=== PATIENT | female | born 1965 | race Caucasian/White ===

== ENCOUNTER → 2017-07-05 08:48 | Outpatient (CLI) | payer BC, SELFPAY ==
[2017-07-05 09:46] LABS: Hemoglobin A1c 8.5 % (4.2-6.3)
[2017-07-05 09:51] LABS: T4 Free Direct 1.05 ng/dL (0.76-1.46)
[2017-07-05 09:55] LABS: ALB/GLOB Ratio 1.1 RATIO (0.9-2.4); AST(SGOT) 18 U/L (15-37); Alanine Aminotransfer ALT/SGPT 28 U/L (13-56); Albumin, Serum 3.4 g/dL (3.2-5.0); Alkaline Phosphatase 67 U/L (45-117); Anion Gap 7 (5-15); BUN 9 mg/dL (7-18); BUN/Creat Ratio 15.9 RATIO (10-20); Calcium,Total 7.9 mg/dL (8.5-10.1); Chloride 105 mmol/L (98-107); Creatinine, Serum 0.56 mg/dL (0.55-1.02); EST Glomerular Filtration Rate 121 mL/min (>60); Est Glom Filt Rate - Afr Amer 146 mL/min (>60); Globulin 3.1 g/dL (2.2-4.2); Glucose 104 mg/dL (74-106); Potassium 3.9 mmol/L (3.5-5.1); Protein, Total 6.5 g/dL (6.4-8.2); Sodium Level 139 mmol/L (136-145); Thyroid Stim Hormone (TSH) 2.69 uIU/mL (0.358-3.74)
[2017-07-07 13:01] LABS: Vitamin D 1,25-Dihydroxy 51.5 pg/mL (19.9-79.3)
== END ==
PROVIDERS: Family Provider Internal Medicine; PCP Internal Medicine; Visit Provider Nurse Practitioner
DX: E10.9 Type 1 diabetes mellitus without complications (principal); E03.9 Hypothyroidism, unspecified; E21.3 Hyperparathyroidism, unspecified
CPT/HCPCS: 36415; 80053; 82652; 83036; 84439; 84443

== ENCOUNTER 2017-12-28 09:14 | Outpatient (RCR) | payer BC, SELFPAY | END 2018-01-07 23:59 | LOC: NS 09:14 | PROVIDERS: Family Provider Internal Medicine; PCP Internal Medicine; Visit Provider Nurse Practitioner | DX: E66.9 Obesity, unspecified (principal); Z68.31 Body mass index [BMI] 31.0-31.9, adult; E10.9 Type 1 diabetes mellitus without complications; Z71.3 Dietary counseling and surveillance ==

== ENCOUNTER 2018-01-24 07:40 | Day surgery (SDC) | payer BC, SELFPAY ==
[2018-01-24 07:58] VITALS: BP 120/61; PULSE 72; RESP 18; TEMP 37.4; O2SAT 100; BMI 32.8
[2018-01-24 08:16] LABS: Bedside Glucose 112 mg/dL (70-110)
--- NOTE | 2018-01-24 08:45 | COLBX_PTH ---
PATIENT: BEAN LEES LOC: EN U#:[id number] AGE/SX: 52/F ROOM: RE01/24/[address]: Dr. Hanane Werner MD : 1965 BED: DIS: 01/24/2018 SPEC #: [id number] RECD: 01/24/18 10:00 STATUS: SUGAR MIKAELA #: [id number] MYKEL: 01/24/18 08:[address]: Hanane Werner DEPT: SURGICAL PATHOLOGY RECD BY: Laron Bajwa ENTERED: 01/24/18 10:11 SP TYPE: COLON BX OTHR DR: Dr. Arjun Steele MD Tissues: Rectum, NOS Procedures: Surgery Specimen Level IV HEADER OPERATION: Colonoscopy PRE-OP DIAGNOSIS: Screening TISSUE SUBMITTED: Rectal polyp MICROSCOPIC DIAGNOSIS Rectal polyp, biopsy: Fragments of inflammatory polyp. SJ:meagan 01/25/18 MICROSCOPIC DESCRIPTION Slides are reviewed. GROSS DESCRIPTION Received in fixative is one container labeled with the patient's name and designated rectal polyp. The specimen consists of a piece of rachel-pink polyp measuring 0.5 x 0.4 x 0.3 cm. Also present in the container are multiple fragments of rachel soft tissue mixed with fecal material measuring in aggregate 0.5 x 0.3 x 0.1 cm. The specimen is totally submitted in one cassette. / SJ:rg 01/24/18 TC:5 [facility]: [id number]
--- NOTE | 2018-01-24 08:59 | H&P.OPEN ---
Past Medical/Surgical History - Planned Operation Planned Operative Procedure/s: cscope open access Date of Operative Procedure: 01/24/18 Permit Signed: No S.O.S: No Is This Patient Having a Total Joint: No - Previous Hospitalizations/Surgeries HX Hospitalizations: No HX of Surgeries: . TUBAL LIGATION. MULTIPLE LT FOOT SURGERIES. BILAT EYE SURGERY. T&A. RIGHT ANKLE FX Any Problems With Anesthesia: Yes - nausea and vomitting You/Your Family Experience Fever (Hyperthermia) With Anes: No Cholinesterase deficiency: No - Cardiovascular Hx Chest Pain within Last 2 months: No Hx of Irregular Heartbeat and/or Afib: No Hx Heart Attack: No Hx Congestive Heart Failure: No Hx Rheumatic Fever: No Hx Hypertension: Yes - CONTROLLED WITH MED Hx Internal Defibrillator: No Hx Pacemaker: No Hx Cardiac Catheterization: No Hx Cardiac Surgery/Stents/Etc.: No Hx Stress Test: No HX Edema: No Hx Pain in Legs when Walking/Leg Cramps: No - Respiratory Chronic Cough: No HX of Shortness of Breath: No Hoarseness: No Hx Chronic Obstructive Pulmonary Disease (COPD): No Hx Asthma: No Hx Emphysema: No Hx Sleep Apnea: No CPAP: No BIPAP: No Hx Oxygen Use at Home: No Hx Respiratory Tract Infection/Cold (presently): No Do You Snore Loudly (louder than talking or can be heard): Yes Do You Often Feel Tired/ Fatigued/ Sleepy Dring Daytime?: No Has Anyone Observed You Stop Breathing During Sleep?: No Result (for STOP score): Positive Hx Smoking: No Smoking Status: Never smoker - Gastrointestinal Hx Gastroesophageal Reflux: Yes Controlled With Meds: Yes Hx Gastrointestinal Disorders: No Hx Gastrointestinal Bleed: No Hx Ulcer: No Hx Hiatal Hernia: No Difficulty Chewing/Swallowing: No Recent Onset of Swallowing Problems: No Special diet followed at home: Yes - DIABETIC Hx Unplanned Weight Loss of 20#: No - Neurological Hx Seizures: No HX Syncope/Blackout Spells/Unconsciousness: No Hx CVA/Stroke: No Hx Transient Ischemic Attacks (TIA): No Hx Multiple Sclerosis: No Hx Parkinson's Disease: No Hx Head/Neck Injury: No Hx Headaches: No Hx Back Injury/Pain: No Recent Onset of Speech Difficulty: No Restless Legs: No Does patient have nerve stimulator: No Patient instructed to have device shut off: No Rep notified?: No - Blood Disorder Hx Leukemia: No Bleeding Tendencies: No Hx Deep Vein Thrombosis: No Hx High Cholesterol: Yes - ON MED Blood Transmitted Disease: No Hx Hepatitis: No Hx Cirrhosis: No Hx Anemia: No Hx Blood Disorders: No - Reproduction Is Patient Lactating: No Hx Hysterectomy: No Hx Tubal Ligation: Yes Are You Post Menopause: No - Genitourinary Hx Renal Disease: No Hx Dialysis: No - Musculoskeletal Hx Arthritis: No Hx Rheumatoid Arthritis: No Hx Gout: No Recent Onset of an Orthopedic Problem: No - Endocrine Hx Diabetes: Yes Insulin: Yes - PUMP Thyroid Disease: Yes - ON MED Hx Steroid Therapy: No - Psycho/Social Hx Substance Use: No Hx Alcohol Use: No Hx Anxiety: No Hx Depression: No - . Mental Illness: No Hx Dementia: No - Miscellaneous Hx Cancer: No Recent Exposure to Contagious Disease: No Active MRSA: No Hx of C-Diff: No Any Loose Teeth: No Allergies codeine Adverse Reaction (Verified 01/23/18 12:53) Vomiting Maternal Family History: Family History (Last Reviewed 12/27/17 @ 14:26 by Krista Maxwell) Mother Diabetes Father Diabetes Grandfather Diabetes Grandmother Diabetes No pertinent history - Discharge Is Pt Admitted From a Senior Care, or a Residential: No Who Could Help: FAMILY After D/C, Where Do you Plan to Go: Return Home - Physical Exam General: Alert, Oriented x3, Cooperative, No apparent distress HEENT: Atraumatic Lungs: Normal air movement Cardiovascular: Regular rate, Regular Rhythm Abdomen: Soft, Non Tender, Non-Distended, - - insulin pump in LLQ Neurological: Cranial nerves II-XII grossly intact Psych/Mental Status: Normal Affect Vital Signs Temp Pulse Resp BP Pulse Ox 99.3 F H 72 18 120/61 100 01/24/18 07:58 01/24/18 07:58 01/24/18 07:58 01/24/18 07:58 01/24/18 07:58 Oxygen Delivery Method Room Air Weight: 191 lb 2.252 oz Body Mass Index (BMI) 32.8 Finger Stick Blood Glucose 338 POC Glucose 01/24/18 07:54 POC Glucose 112 H Assessment/Plan All Active Problems (Last Reviewed 12/27/17 @ 14:26 by Krista Maxwell) Diabetic foot ulcer (Acute) Furunculosis of axilla (Acute) Controlled insulin dependent type 1 diabetes mellitus (Acute) Diabetic infection of left foot (Acute) 52-year-old female for screening colonoscopy, denies any family history of colon cancer, has bowel movements Q2 days, denies any blood, no previous colonoscopy. Surgery Risks - Colonoscopy I discussed with the patient the risks of the procedure: Yes Risks Include but are not Limited To: Risks include but are not limited to: Bleeding, perforation requiring further surgery, inability to complete colonoscopy requiring barium enema. Pt had no further questions.
[2018-01-24 09:48] VITALS: BP 120/61; BP 98/60; PULSE 69; RESP 16; TEMP 36; O2SAT 100
[2018-01-24 09:50] VITALS: BP 120/61; BP 120/65; PULSE 79; RESP 16; O2SAT 100
--- NOTE | 2018-01-24 09:50 | OP.ENDO_ITS ---
Patient Name: Fay Mckinney Procedure Date: 01/24/2018 8:52 AM Date of : 1965 Age: 52 Procedure: Colonoscopy Indications: Screening for colorectal malignant neoplasm Providers: Hanane Werner MD Medicines: Monitored Anesthesia Care Patient Profile: Last Colonoscopy: none. The patient's first colonoscopy is today. Complications: No immediate complications. Procedure: Pre-Anesthesia Assessment: - Prior to the procedure, a History and Physical was performed, and patient medications and allergies were reviewed. The patient's tolerance of previous anesthesia was also reviewed. The risks and benefits of the procedure and the sedation options and risks were discussed with the patient. All questions were answered, and informed consent was obtained. Prior Anticoagulants: The patient has taken no previous anticoagulant or antiplatelet agents. ASA Grade Assessment: II - A patient with mild systemic disease. After reviewing the risks and benefits, the patient was deemed in satisfactory condition to undergo the procedure. After I obtained informed consent, the scope was passed under direct vision. Throughout the procedure, the patient's blood pressure, pulse, and oxygen saturations were monitored continuously. The Colonoscope was introduced through the anus and advanced to the cecum, identified by the appendiceal orifice, ileocecal valve and palpation. The colonoscopy was performed without difficulty. The patient tolerated the procedure well. The quality of the bowel preparation was good. Scope In: 9:03:49 AM Scope Withdrawal Time 0 hours 27 minutes 10 seconds Scope Out: 9:42:56 AM Total Procedure Duration Time 0 hours 39 minutes 7 seconds Findings: A 4 to 6 mm polyp was found in the rectum. The polyp was pedunculated. The polyp was removed with a hot snare. Resection and retrieval were complete. The digital rectal exam findings include rectal polyp/mass, grade I internal hemorroids. Internal hemorrhoids were found. The hemorrhoids were Grade I (internal hemorrhoids that do not prolapse). Impression: - One 4 to 6 mm polyp in the rectum, removed with a hot snare. Resected and retrieved. - Rectal polyp, grade I internal hemorroids found on digital rectal exam. - Internal hemorrhoids. Recommendation: - Repeat colonoscopy in 3 - 5 years for surveillance based on pathology results. - Discharge patient to home. - Continue present medications. Procedure Code(s): --- Professional --- 70810, Colonoscopy, flexible; with removal of tumor(s), polyp(s), or other lesion(s) by snare technique Diagnosis Code(s): --- Professional --- K62.1, Rectal polyp Z12.11, Encounter for screening for malignant neoplasm of colon K64.0, First degree hemorrhoids CPT copyright 2017 [employer]. All rights reserved. The codes documented in this report are preliminary and upon wave solder offbearer review may be revised to meet current compliance requirements. MD Hanane Gomez MD 01/24/2018 9:50:26 AM This report has been signed electronically. Number of Addenda: 0 Note Initiated On: 01/24/2018 8:52 AM
[2018-01-24 09:56] VITALS: BP 113/59; BP 120/61; PULSE 80; RESP 16; O2SAT 100
[2018-01-24 09:59] VITALS: BP 114/51; BP 120/61; PULSE 82; RESP 16; O2SAT 100
[2018-01-24 10:05] VITALS: BP 118/56; BP 120/61; PULSE 83; RESP 16; TEMP 36.1; O2SAT 100
== END 2018-01-24 10:26 | disposition home or self-care (01) ==
LOC: EN 07:40 → AC 07:42
PROVIDERS: Family Provider Internal Medicine; PCP Internal Medicine; Referring Provider Surgery; Visit Provider Surgery
PROC: 0DJD8ZZ Inspection of Lower Intestinal Tract, Via Natural or Artificial Opening Endoscopic (ICD-10-PCS; CPT 45378; principal; 2018-01-24 08:40)
DX: Z12.11 Encounter for screening for malignant neoplasm of colon (principal); K62.1 Rectal polyp; K64.0 First degree hemorrhoids; I10 Essential (primary) hypertension; K21.9 Gastro-esophageal reflux disease without esophagitis; E10.9 Type 1 diabetes mellitus without complications; E78.00 Pure hypercholesterolemia, unspecified; E06.9 Thyroiditis, unspecified; E10.621 Type 1 diabetes mellitus with foot ulcer; L97.509 Non-pressure chronic ulcer of other part of unspecified foot with unspecified severity; Z96.41 Presence of insulin pump (external) (internal); Z79.899 Other long term (current) drug therapy
CPT/HCPCS: 45385; 82962; 88305; J7120

== ENCOUNTER → 2018-01-26 08:15 | Outpatient (CLI) | payer BC, SELFPAY ==
[2018-01-26 09:50] LABS: Hemoglobin A1c 7.5 % (4.2-6.3)
[2018-01-26 10:03] LABS: Microalbumin,Random Urine 5.7 mg/L (NO RANGE EST.); Microalbumin:Creatinine Ratio 16.6 mg/g CRE (<30 mg/g CRE)
[2018-01-26 10:07] LABS: AST(SGOT) 12 U/L (15-37); Alanine Aminotransfer ALT/SGPT 24 U/L (13-56); Albumin, Serum 3.4 g/dL (3.2-5.0); Alkaline Phosphatase 66 U/L (45-117); Anion Gap 5 (5-15); BUN 15 mg/dL (7-18); BUN/Creat Ratio 24.4 RATIO (10-20); Calcium,Total 8.3 mg/dL (8.5-10.1); Chloride 104 mmol/L (98-107); Cholesterol 121 mg/dL (200); Creatinine, Serum 0.61 mg/dL (0.55-1.02); EST Glomerular Filtration Rate 109 mL/min (>60); Est Glom Filt Rate - Afr Amer 132 mL/min (>60); Globulin 3.4 g/dL (2.2-4.2); Glucose 135 mg/dL (74-106); High Density Lipoprotein 53 mg/dL; Potassium 4.1 mmol/L (3.5-5.1); Protein, Total 6.8 g/dL (6.4-8.2); Sodium Level 138 mmol/L (136-145); T4 Free Direct 1.31 ng/dL (0.76-1.46); Triglycerides 71 mg/dL; Very Low Density Lipoprotein 14 mg/dL (5-40)
== END ==
PROVIDERS: Family Provider Internal Medicine; PCP Internal Medicine; Referring Provider Nurse Practitioner; Visit Provider Nurse Practitioner
DX: E03.9 Hypothyroidism, unspecified (principal); E10.9 Type 1 diabetes mellitus without complications
CPT/HCPCS: 36415; 80053; 80061; 82043; 82570; 83036; 84439; 84443

== ENCOUNTER 2018-03-31 19:27 | Emergency (ER) | payer BC, SELFPAY ==
[2018-03-28 14:33] VITALS: BMI 33.0
[2018-03-31 19:29] VITALS: BP 118/66; PULSE 104; RESP 17; TEMP 37.4; O2SAT 97; BMI 32.5
[2018-03-31] MEDS: Morphine 4 MG/ML Syringe IV (20:08)
[2018-03-31] MEDS: 0.9% Normal Saline 1,000 ML 150 ML IV (20:08)
[2018-03-31] MEDS: Ondansetron 4 MG/2 ML Vial IV (20:08)
--- NOTE | 2018-03-31 20:25 | RAD_ITS ---
STUDY: X-RAY - LEFT FOOT CLINICAL: Female, 52 years old. Left foot infection. TECHNIQUE: 3 view(s) of the foot. COMPARISON: April 29, 2015 FINDINGS: There is generalized osteopenia. Normal talus, calcaneus, and tarsal bones. There are postfusion changes of the midfoot are unaltered. The patient is at the distal aspects of the first through fifth toes amputated in the mid-metatarsal region. There is plate and screw fixation unchanged from the prior comparison study. There is soft tissue swelling distal to the resection sites. No bone resorption is present. RAD/Foot min 3 Views IMPRESSION: Osteopenia with post-surgical changes and fixation of the mid foot unaltered since the prior study. No bone resorption to suggest osteomyelitis. Electronically Signed: Sarbjit Basilio MD at 20:42 EST , Service support ,
[2018-03-31 20:38] LABS: Absolute Lymphocyte Count 0.75 X10^3/ul (0.83-4.51); Absolute Neutrophil Count 9.2 X10^3/uL (2.0-7.7); Basophil# 0.02 X10^3/uL; Basophil% 0.2 % (0-1); Eosinophil# 0.01 X10^3/uL; Eosinophils% 0.1 % (0-5); Hematocrit 31.4 % (37-47); Hemoglobin 10.5 g/dl (12.0-15.0); Lymphocyte # 0.75 X10^3/ul (4.0); Lymphocyte % 7.2 % (19-41); Mean Corp Hgb Conc 33.4 g/gl (32-36); Mean Corpuscular Hgb 30.6 pg (27.0-32.0); Mean Corpuscular Volume 91.5 fL (81-99); Mean Platelet Vol. 10.3 fl (6.2-12.0); Monocyte# 0.48 X10^3/uL; Monocyte% 4.6 % (0-10); Neutrophil # 9.16 X10^3/uL (2.7-7.7); Neutrophil % 87.8 % (47-70); POSITIVE COUNT NO; POSITIVE DIFFERENTIAL NO; POSITIVE MORPHOLOGY NO; Platelet Count 121 K/mm3 (150-450); RBC Distribution Width CV 12.7 % (11.6-14.6); RBC Distribution Width SD 42.7 fl (35.1-43.9); Red Blood Count 3.43 M/mm3 (4.2-5.4); White Blood Count 10.4 K/mm3 (4.4-11.0)
[2018-03-31 20:39] VITALS: BP 124/65; PULSE 99; RESP 20; O2SAT 97
--- NOTE | 2018-03-31 20:40 | NURSING ---
unable to obtain lactic acid; lab called to draw. Md Linn notified.
[2018-03-31 20:50] LABS: AST(SGOT) 15 U/L (15-37); Alanine Aminotransfer ALT/SGPT 24 U/L (13-56); Alkaline Phosphatase 72 U/L (45-117); Anion Gap 9 (5-15); BUN 15 mg/dL (7-18); BUN/Creat Ratio 20.3 RATIO (10-20); Bilirubin, Direct 0.14 mg/dL (0.00-0.30); Calcium,Total 8.3 mg/dL (8.5-10.1); Chloride 108 mmol/L (98-107); Creatinine, Serum 0.74 mg/dL (0.55-1.02); EST Glomerular Filtration Rate 88 mL/min (>60); Est Glom Filt Rate - Afr Amer 107 mL/min (>60); Estimated Creatinine Clearance 78.54 ml/min; Globulin 3.4 g/dL (2.2-4.2); Glucose 202 mg/dL (74-106); Potassium 3.4 mmol/L (3.5-5.1); Protein, Total 6.4 g/dL (6.4-8.2); Sodium Level 140 mmol/L (136-145)
--- NOTE | 2018-03-31 22:27 | ED.DCSUM_ITS ---
- ER Visit Summary Date of Service: 03/31/18 Chief Complaint: Abdominal pain History of Present Illness: The patient is a 52 F who presents with upper abdominal pain and left foot pain. Patient states she started having upper abdominal pain and nausea yesterday that has continued to worsen. She had similar symptoms in the past when her foot gets infected. She is currently being treated for right foot infection by Dr. Marshall. She is on Augmentin. Left foot has been more painful and has had a bleeding wound over the distal aspect. She has had prior toe amputations on her left foot. Physical Examination: Blood pressure is 118/66, temperature 99.4, heart rate 104, respiratory rate 17, pulse ox 97% on room air. Patient sitting upright in bed. She is nontoxic appearing. Heart is regular rate and rhythm without murmur. Lungs sounds are clear pedal and abdomen is soft and nontender to palpation. Hypoactive bowel sounds are noted. Lower extremity examination reveals warmth and erythema to the left forefoot. There is a small open wound of the distal aspect of the foot with minimal drainage. Clean wound edges are noted. Test Results: CBC was normal white count with 88% neutrophils noted. Hemoglobin is 10.5 and platelet count is 121,000. Chemistry studies significant for glucose of 202. Lactate is normal. Blood cultures and wound cultures were sent. Left foot x-rays reveal osteopenia with postsurgical changes and fixation of the midfoot. There is no evidence of osteomyelitis. Emergency Department Course and Treatment: Patient was given morphine, Zofran, and IV fluids. Patient is given a dose of IV clindamycin. She will be discharged home with clindamycin for better MRSA coverage. If she has extension of the erythema, fever, or any other concerns she is to return. I advised her if her blood cultures returned with indication of infection she will be called and asked to return as well. Treatment Plan: [] Disposition: Discharge Impression: Cellulitis left foot This note was generated with [employer] dictation software. It may contain incorrect words, spelling, and punctuation that were not noted in review of the chart prior to signing ED Disposition - Plan for ED Patient: Disposition: Home or Assisted Living Chief Complaint: Abd Pain Instructions: ED Infec Skin Cellulitis Prescriptions: Clindamycin [Cleocin] 300 mg PO 4X/DAY #80 capsule Referrals: Arjun Steele MD [Primary Care Provider] - Unique Barnes [STAFF PHYSICIAN] - As soon as possible
[2018-03-31 22:45] VITALS: BP 107/65; PULSE 104; RESP 17; O2SAT 96
== END 2018-03-31 22:45 | disposition home or self-care (01) ==
PROVIDERS: Emergency Provider Emergency Medicine; Family Provider Internal Medicine; PCP Internal Medicine
DX: L03.116 Cellulitis of left lower limb (principal); R10.10 Upper abdominal pain, unspecified; R11.0 Nausea; E10.9 Type 1 diabetes mellitus without complications; I10 Essential (primary) hypertension; Z89.422 Acquired absence of other left toe(s); Z79.4 Long term (current) use of insulin; Z79.899 Other long term (current) drug therapy
CPT/HCPCS: 36415; 73630; 80048; 80076; 83605; 85025; 87040; 87070; 87075; 87205; 96361; 96365; 96374; 96375; 99284; J7030; A4216; J2405

== ENCOUNTER → 2018-12-17 16:06 | Outpatient (CLI) | payer BC, SELFPAY ==
[2018-12-17 15:31] VITALS: BMI 32.9
--- NOTE | 2018-12-17 16:08 | RAD_ITS ---
STUDY: X-RAY - LUMBAR SPINE REASON FOR EXAM: Female, 53 years old. Low back pain TECHNIQUE: 5 view(s) of the lumbar spine were obtained. COMPARISON: None FINDINGS: Normal lumbar lordosis. There is no substantial scoliosis. There is a normal alignment of the vertebrae. There is mild multilevel endplate spondylosis of the lumbar vertebrae. There is mild multi-level degenerative disc disease with multi-level disc space narrowing. There is no demonstrated fracture. The soft tissue structures are unremarkable. RAD/L/S Spine Min 4 Views IMPRESSION: No acute abnormality. Mild degenerative changes. Electronically Signed: Francis Harrison MD at 16:20 EDT , Service support ,
== END ==
PROVIDERS: Family Provider Internal Medicine; PCP Internal Medicine; Referring Provider Internal Medicine; Visit Provider Internal Medicine
DX: M54.5 Low back pain (principal)
CPT/HCPCS: 72110

== ENCOUNTER → 2019-05-14 | Outpatient (CLI) | payer BC, SELFPAY ==
[2019-05-14 15:26] VITALS: BMI 32.9
[2019-05-15 11:03] LABS: Bacteria 0 SEEN /hpf (None Seen); Mucous, Urine 0 SEEN /hpf (<or=2+); Red Blood Cells-Urine 0 SEEN /hpf (0-5); Squamous Epithelial Cells - UA 0 SEEN /hpf (5-10)
[2019-05-15 12:41] LABS: Color, Urine Yellow (Yellow); Glucose, Dipstick 1000 mg/dl (Normal); Ketone-Dipstick Negative (Negative); Leukocyte Esterase-Dipstick 100 /ul (Negative); Nitrite-Dipstick Positive (Negative); Occult Blood-Urine Negative /ul (Negative); Protein-Dipstick Negative (Negative); Urine Bilirubin Dipstick Negative (Negative); Urine Clarity Sl. Cloudy (Clear); Urine Urobilinogen Normal (Normal)
[2019-05-15 12:48] LABS: White Blood Cells 25-50 SEEN /hpf (0-5)
== END | disposition home or self-care (01) ==
LOC: LABSPEC 05-15 11:01
PROVIDERS: PCP Internal Medicine; Referring Provider Internal Medicine; Visit Provider Internal Medicine
DX: N39.0 Urinary tract infection, site not specified (principal)
CPT/HCPCS: 81001; 87086; 87088; 87186

== ENCOUNTER → 2019-10-30 15:05 | Outpatient (CLI) | payer BC, SELFPAY ==
[2019-10-30 14:30] VITALS: BMI 33.6
[2019-10-30 16:56] LABS: Absolute Lymphocyte Count 2.16 X10^3/uL (0.83-4.51); Absolute Neutrophil Count 4.6 X10^3/uL (2.0-7.7); Basophil# 0.06 X10^3/uL; Basophil% 0.8 % (0-1); Eosinophil# 0.09 X10^3/uL; Eosinophils% 1.2 % (0-5); Hematocrit 40.1 % (37-47); Hemoglobin 13.2 g/dL (12.0-15.0); Lymphocyte # 2.16 X10^3/ul (4.0); Lymphocyte % 29.3 % (19-41); Mean Corp Hgb Conc 32.9 g/dL (32-36); Mean Corpuscular Volume 94.1 fL (81-99); Mean Platelet Vol. 11.7 fl (6.2-12.0); Monocyte# 0.42 X10^3/uL; Monocyte% 5.7 % (0-10); NRBC Flagged by Analyzer 0 % (0-5); Neutrophil # 4.61 X10^3/uL (2.7-7.7); Neutrophil % 62.6 % (47-70); Platelet Count 168 K/mm3 (150-450); RBC Distribution Width CV 12.6 % (11.6-14.6); RBC Distribution Width SD 43.5 fl (35.1-43.9); Red Blood Count 4.26 M/mm3 (4.2-5.4); White Blood Count 7.4 K/mm3 (4.4-11.0)
[2019-10-30 17:28] LABS: ALB/GLOB Ratio 1.1 RATIO (0.9-2.4); AST(SGOT) 17 U/L (15-37); Alanine Aminotransfer ALT/SGPT 23 U/L (13-56); Albumin, Serum 3.9 g/dL (3.2-5.0); Alkaline Phosphatase 89 U/L (45-117); Anion Gap 8 (5-15); BUN 21 mg/dL (7-18); BUN/Creat Ratio 23.8 RATIO (10-20); Calcium,Total 8.6 mg/dL (8.5-10.1); Chloride 105 mmol/L (98-107); Cholesterol 166 mg/dL (200); Creatinine, Serum 0.88 mg/dL (0.55-1.02); EST Glomerular Filtration Rate 72 mL/min (>60); Est Glom Filt Rate - Afr Amer 87 mL/min (>60); Globulin 3.5 g/dL (2.2-4.2); Glucose 232 mg/dL (74-106); High Density Lipoprotein 64 mg/dL; Microalbumin,Random Urine 12.9 mg/L (NO RANGE EST.); Microalbumin:Creatinine Ratio 12.5 mg/g CRE (<30 mg/g CRE); Potassium 4.8 mmol/L (3.5-5.1); Protein, Total 7.4 g/dL (6.4-8.2); Sodium Level 135 mmol/L (136-145); Thyroid Stim Hormone (TSH) 5.86 uIU/mL (0.358-3.74); Triglycerides 120 mg/dL; Very Low Density Lipoprotein 24 mg/dL (5-40)
== END ==
PROVIDERS: PCP Internal Medicine; Referring Provider Internal Medicine; Visit Provider Internal Medicine
DX: E03.9 Hypothyroidism, unspecified (principal); E78.5 Hyperlipidemia, unspecified; E10.65 Type 1 diabetes mellitus with hyperglycemia
CPT/HCPCS: 36415; 80053; 80061; 82043; 82570; 84443; 85025

== ENCOUNTER → 2020-05-25 09:21 | Outpatient (CLI) | payer BC, SELFPAY ==
[2020-05-25 08:51] VITALS: BMI 34.3
[2020-05-25 09:23] LABS: Mucous, Urine 0 SEEN /hpf (<or=2+); White Blood Cells 0 SEEN /hpf (0-5)
[2020-05-25 12:14] LABS: Color, Urine Yellow (Yellow); Glucose, Dipstick 1000 mg/dl (Normal); Ketone-Dipstick Negative (Negative); Leukocyte Esterase-Dipstick Negative /ul (Negative); Nitrite-Dipstick Negative (Negative); Occult Blood-Urine Negative /ul (Negative); Protein-Dipstick Negative (Negative); Specific Gravity, Urine 1.015 (1.002-1.030); Urine Bilirubin Dipstick Negative (Negative); Urine Clarity Sl. Cloudy (Clear); Urine Urobilinogen Normal (Normal)
[2020-05-25 12:20] LABS: Bacteria 4+ /hpf (None Seen); Red Blood Cells-Urine 0 SEEN /hpf (0-5); Squamous Epithelial Cells - UA 0-5 SEEN /hpf (5-10)
[2020-05-25 12:29] LABS: ALB/GLOB Ratio 0.9 RATIO (0.9-2.4); AST(SGOT) 28 U/L (15-37); Alanine Aminotransfer ALT/SGPT 29 U/L (13-56); Albumin, Serum 3.6 g/dL (3.2-5.0); Alkaline Phosphatase 104 U/L (45-117); Anion Gap 10 (5-15); BUN 15 mg/dL (7-18); BUN/Creat Ratio 20.1 RATIO (10-20); Calcium,Total 8.7 mg/dL (8.5-10.1); Chloride 104 mmol/L (98-107); Creatinine, Serum 0.74 mg/dL (0.55-1.02); EST Glomerular Filtration Rate 87 mL/min (>60); Est Glom Filt Rate - Afr Amer 105 mL/min (>60); Globulin 3.9 g/dL (2.2-4.2); Glucose 287 mg/dL (74-106); Potassium 4.6 mmol/L (3.5-5.1); Protein, Total 7.5 g/dL (6.4-8.2); Sodium Level 134 mmol/L (136-145); Thyroid Stim Hormone (TSH) 4.15 uIU/mL (0.358-3.74)
[2020-05-25 12:37] LABS: Microalbumin,Random Urine < 5.0 mg/L (NO RANGE EST.)
== END ==
LOC: BIMLAB 09:22
PROVIDERS: PCP Internal Medicine; Referring Provider Internal Medicine; Visit Provider Internal Medicine
DX: I10 Essential (primary) hypertension (principal); E03.9 Hypothyroidism, unspecified; E10.65 Type 1 diabetes mellitus with hyperglycemia; E10.8 Type 1 diabetes mellitus with unspecified complications; R82.90 Unspecified abnormal findings in urine
CPT/HCPCS: 36415; 80053; 81001; 82043; 82570; 84443; 87086; 87088

== ENCOUNTER → 2020-06-25 | Outpatient (CLI) | payer BC, SELFPAY | END | disposition home or self-care (01) | PROVIDERS: Visit Provider Otolaryngology | DX: K04.7 Periapical abscess without sinus (principal) | CPT/HCPCS: 87070; 87077; 87186; 87205 ==

== ENCOUNTER 2020-07-16 20:00 | Emergency (ER) | payer BC, SELFPAY ==
[2020-07-16 20:00] VITALS: BP 159/75; PULSE 88; RESP 18; TEMP 37.1; O2SAT 97; BMI 32.9
--- NOTE | 2020-07-16 20:56 | ED.VISSUMM ---
- ER Visit Summary Date of Service: 07/16/20 Chief Complaint: Nausea and vomiting History of Present Illness: The patient is a 54 F who presents with nausea, vomiting, and abdominal pain that began today. Patient states she has been unable to keep anything down today. Patient denies any hematemesis or coffee-ground emesis. Patient states her pain is over the epigastric area. Patient describes the pain as dull. Patient states the pain has been constant all day today. Patient states nothing makes it better or worse. Patient denies any diarrhea, melena, or hematochezia. Patient denies any dysuria, hematuria, or urinary frequency. Patient does admit to a mild headache. Patient denies any fevers or chills. Patient has a history of diabetes. Physical Examination: Vital signs are stable. Patient is afebrile. Patient is in no acute distress. Oral mucosa is pink and moist. Neck is supple. Trachea is midline. There is no JVD. Heart was regular rate and rhythm. Lungs are clear and equal bilaterally. Abdomen is soft. Bowel sounds are normal. There is some mild epigastric tenderness. There is no rebound or guarding noted. Cranial nerves II through XII are intact. There are no focal motor or sensory deficits. Extremities are intact. There is no calf tenderness or edema. Test Results: CBC and comprehensive metabolic profile were obtained were within normal limits. Lipase was normal. Serum ketones were negative. Urinalysis was obtained and does not show any evidence of urinary tract infection. Emergency Department Course and Treatment: Patient was given IV fluids and Zofran. Patient was feeling better on reevaluation. Patient was given a prescription for Zofran. Patient was instructed to follow-up with her primary care physician in 5 to 7 days. Patient understood and was agreeable with the plan. All questions were answered. Disposition: Discharge home Impression: 1. Nausea and vomiting This note was generated with [employer] dictation software. It may contain incorrect words, spelling, and punctuation that were not noted in review of the chart prior to signing ED Disposition - Plan for ED Patient: Disposition: Home or Assisted Living Diagnosis: Nausea and vomiting Instructions: ED Vomiting (Adult) Prescriptions: Ondansetron [Zofran Odt] 4 mg PO Q8H PRN PRN #10 tablet PRN Reason: Nausea Transmission Status: Pending to [facility]/pharmacy #[id number] Referrals: Arjun Steele MD [Primary Care Provider] - 3-5 Days
[2020-07-16] MEDS: Ondansetron 4 MG/2 ML Vial IV ×2 (20:57→23:06)
[2020-07-16] MEDS: Morphine 4 MG/ML Syringe IV (20:58)
[2020-07-16] MEDS: 0.9% Normal Saline 1,000 ML 1000 ML IV (20:58)
[2020-07-16 21:20] LABS: Absolute Lymphocyte Count 1.09 X10^3/uL (0.83-4.51); Absolute Neutrophil Count 5.7 X10^3/uL (2.0-7.7); Basophil# 0.02 X10^3/uL; Basophil% 0.3 % (0-1); Eosinophil# 0.01 X10^3/uL; Eosinophils% 0.1 % (0-5); Hematocrit 39.7 % (37-47); Hemoglobin 13.7 g/dL (12.0-15.0); Lymphocyte # 1.09 X10^3/ul (4.0); Lymphocyte % 15.1 % (19-41); Mean Corp Hgb Conc 34.5 g/dL (32-36); Mean Corpuscular Hgb 30.5 pg (27.0-32.0); Mean Corpuscular Volume 88.4 fL (81-99); Mean Platelet Vol. 10.7 fl (6.2-12.0); Monocyte# 0.33 X10^3/uL; Monocyte% 4.6 % (0-10); NRBC Flagged by Analyzer 0 % (0-5); Neutrophil # 5.69 X10^3/uL (2.7-7.7); Neutrophil % 79.1 % (47-70); Platelet Count 187 K/mm3 (150-450); RBC Distribution Width CV 12.8 % (11.6-14.6); RBC Distribution Width SD 41.2 fl (35.1-43.9); Red Blood Count 4.49 M/mm3 (4.2-5.4); White Blood Count 7.2 K/mm3 (4.4-11.0)
[2020-07-16 21:36] LABS: ALB/GLOB Ratio 0.9 RATIO (0.9-2.4); AST(SGOT) 13 U/L (15-37); Alanine Aminotransfer ALT/SGPT 24 U/L (13-56); Albumin, Serum 3.6 g/dL (3.2-5.0); Alkaline Phosphatase 108 U/L (45-117); Anion Gap 5 (5-15); BUN 13 mg/dL (7-18); BUN/Creat Ratio 18.4 RATIO (10-20); Calcium,Total 9.1 mg/dL (8.5-10.1); Chloride 102 mmol/L (98-107); Creatinine, Serum 0.71 mg/dL (0.55-1.02); EST Glomerular Filtration Rate 92 mL/min (>60); Est Glom Filt Rate - Afr Amer 112 mL/min (>60); Estimated Creatinine Clearance 80.04 ml/min; Globulin 3.8 g/dL (2.2-4.2); Glucose 170 mg/dL (74-106); Lipase 24 U/L (73-393); Potassium 3.8 mmol/L (3.5-5.1); Protein, Total 7.4 g/dL (6.4-8.2); Sodium Level 135 mmol/L (136-145)
[2020-07-16 22:00] LABS: Lactic Acid 1.7 mmol/L (0.4-1.9)
[2020-07-16 22:11] LABS: Bacteria 0 SEEN /hpf (None Seen); Mucous, Urine 0 SEEN /hpf (<or=2+); Red Blood Cells-Urine 0 SEEN /hpf (0-5); Squamous Epithelial Cells - UA 0 SEEN /hpf (5-10); White Blood Cells 0 SEEN /hpf (0-5)
[2020-07-16 22:19] LABS: Color, Urine Yellow (Yellow); Glucose, Dipstick 1000 mg/dl (Normal); Leukocyte Esterase-Dipstick 25 /ul (Negative); Nitrite-Dipstick Negative (Negative); Occult Blood-Urine Negative /ul (Negative); Protein-Dipstick 15 mg/dl (Negative); Specific Gravity, Urine 1.015 (1.002-1.030); Urine Bilirubin Dipstick Negative (Negative); Urine Clarity Clear (Clear); Urine Urobilinogen Normal (Normal)
[2020-07-16 22:22] LABS: Ketone-Dipstick 150 mg/dl (Negative)
[2020-07-16 22:58] VITALS: PULSE 80; RESP 20; O2SAT 99
== END 2020-07-16 23:09 | disposition home or self-care (01) ==
PROVIDERS: Emergency Provider Emergency Medicine; PCP Internal Medicine
DX: R11.2 Nausea with vomiting, unspecified (principal); R10.13 Epigastric pain; R51.9 Headache, unspecified; E11.9 Type 2 diabetes mellitus without complications; Z79.4 Long term (current) use of insulin; Z79.899 Other long term (current) drug therapy
CPT/HCPCS: 80053; 81001; 82009; 83605; 83690; 85025; 96361; 96374; 96375; 96376; 99285; J2405

== ENCOUNTER → 2020-09-23 15:04 | Outpatient (CLI) | payer BC, SELFPAY ==
[2020-09-23 14:36] VITALS: BMI 32.9
[2020-09-23 17:12] LABS: Thyroid Stim Hormone (TSH) 3.21 uIU/mL (0.358-3.74)
== END ==
LOC: BIMLAB 15:04
PROVIDERS: PCP Internal Medicine; Referring Provider Physician Assistant; Visit Provider Physician Assistant
DX: E03.9 Hypothyroidism, unspecified (principal)
CPT/HCPCS: 36415; 84439; 84443

== ENCOUNTER → 2021-08-10 | Outpatient (CLI) | payer BC, SELFPAY | END | disposition home or self-care (01) | PROVIDERS: PCP Internal Medicine; Visit Provider Podiatrist | DX: L97.522 Non-pressure chronic ulcer of other part of left foot with fat layer exposed (principal) | CPT/HCPCS: 87070; 87077; 87186; 87205 ==

== ENCOUNTER → 2021-08-17 | Outpatient (CLI) | payer BC, SELFPAY ==
[2021-08-17 12:27] LABS: Vitamin D,25 Hydroxy 14.5 ng/mL
[2021-08-17 13:11] LABS: ALB/GLOB Ratio 0.9 RATIO (0.9-2.4); AST(SGOT) 17 U/L (15-37); Alanine Aminotransfer ALT/SGPT 27 U/L (13-56); Albumin, Serum 3.7 g/dL (3.2-5.0); Alkaline Phosphatase 98 U/L (45-117); Anion Gap 9 (5-15); BUN 16 mg/dL (7-18); BUN/Creat Ratio 21.7 RATIO (10-20); Calcium,Total 9.2 mg/dL (8.5-10.1); Chloride 104 mmol/L (98-107); Cholesterol 152 mg/dL (200); Creatinine, Serum 0.74 mg/dL (0.55-1.02); EST Glomerular Filtration Rate 87 mL/min (>60); Est Glom Filt Rate - Afr Amer 105 mL/min (>60); Globulin 4.1 g/dL (2.2-4.2); Glucose 161 mg/dL (74-106); High Density Lipoprotein 60 mg/dL; Potassium 4.1 mmol/L (3.5-5.1); Protein, Total 7.8 g/dL (6.4-8.2); Sodium Level 138 mmol/L (136-145); T4 Free Direct 1.78 ng/dL (0.76-1.46); Thyroid Stim Hormone (TSH) 0.04 uIU/mL (0.358-3.74); Triglycerides 78 mg/dL; Very Low Density Lipoprotein 16 mg/dL (5-40)
[2021-08-17 14:13] LABS: Microalbumin:Creatinine Ratio 20.6 mg/g CRE (<30 mg/g CRE)
== END | disposition home or self-care (01) ==
LOC: BIMLAB 08:27
PROVIDERS: PCP Internal Medicine; Referring Provider Internal Medicine Endocrinology, Diabetes & Metabolism; Visit Provider Internal Medicine Endocrinology, Diabetes & Metabolism
DX: E10.3553 Type 1 diabetes mellitus with stable proliferative diabetic retinopathy, bilateral (principal); E10.42 Type 1 diabetes mellitus with diabetic polyneuropathy; E03.8 Other specified hypothyroidism; E06.3 Autoimmune thyroiditis; I10 Essential (primary) hypertension; E55.9 Vitamin D deficiency, unspecified
CPT/HCPCS: 36415; 80053; 80061; 82043; 82306; 82570; 84439; 84443

== ENCOUNTER → 2021-09-13 | Outpatient (CLI) | payer BC, SELFPAY ==
--- NOTE | 2021-09-13 12:33 | BI_ITS ---
MAMMOGRAPHY - BILATERAL SCREENING REASON FOR EXAM: Female, 55 years old. Routine annual screening examination. PERTINENT HISTORY: Non-contributory. TECHNIQUE: Digital bilateral breast bailey (3D mammographic acquisition) in the CC and MLO projections. 2-D mediolateral oblique (MLO) and craniocaudad (CC) views of both breasts were obtained. CAD: Full Field Digital Mammography with Computer Added Detection was performed. COMPARISON: Comparison is made with prior outside examination dated 09/21/2017. FINDINGS: Breast Composition: There are scattered areas of fibroglandular density. There are no dominant masses or suspicious calcifications. No other significant abnormalities are identified. There has been no significant change since the prior study. BI/SCRN MAMM (CAD)W/BAILEY BILAT IMPRESSION: Stable bilateral screening mammogram. Yearly follow-up mammogram recommended. (A) ASSESSMENT CATEGORY: BIRADS Category 1: Negative. A letter regarding these results will be sent to the patient by the facility within 30 days. Approximately 10% of breast cancers are not detected by mammography. A normal mammogram should not delay biopsy of a clinically suspicious abnormality. [id number] Electronically Signed: John Arana MD at 8:57 EDT ,
== END | disposition home or self-care (01) ==
LOC: OPBI 12:32
PROVIDERS: PCP Internal Medicine; Referring Provider Internal Medicine; Visit Provider Internal Medicine
DX: Z12.31 Encounter for screening mammogram for malignant neoplasm of breast (principal)
CPT/HCPCS: 77063; 77067

== ENCOUNTER → 2021-09-30 | Outpatient (CLI) | payer BC, SELFPAY | END | disposition home or self-care (01) | LOC: LABSPEC 10:07 | PROVIDERS: PCP Internal Medicine; Visit Provider Podiatrist | DX: L97.522 Non-pressure chronic ulcer of other part of left foot with fat layer exposed (principal) | CPT/HCPCS: 87070; 87077; 87186; 87205 ==

== ENCOUNTER 2021-11-23 20:36 | Emergency (ER) | payer BC, MEDICAID, SELFPAY ==
[2021-11-23 20:37] VITALS: BP 128/91; PULSE 115; RESP 22; TEMP 37.1; O2SAT 100; BMI 34.3
--- NOTE | 2021-11-23 21:18 | EX.ED.DYSGE1 ---
HPI History of Present Illness Chief Complaint: Allergic Reaction Informant: patient Onset/Context/Timing Onset: Yesterday Current Severity: Moderate Maximum Severity: Moderate Narrative Narrative: Patient presents secondary to hives and itching. She states yesterday she noticed a rash on her left arm. By this morning it spread across her chest and back. It is now also spread to the proximal thighs. She took Benadryl approximately 8 hours ago without significant improvement. She has been on Levaquin for the past 8 days. She states this is the only new or different medication. [facility] Medical History Acute hematogenous osteomyelitis Anxiety and depression bilat eye surgery Breast cancer screening Charcot's joint of left foot Diabetes type 1, controlled Diabetic foot infection Dysmenorrhea great toe fusion History of endometrial biopsy Hyperlipidemia Hyperparathyroidism Hypothyroidism nonhealing plantar l foot wound novasure Obesity open wound of toes Peripheral neuropathy Peripheral vascular disease of lower extremity PVD (peripheral vascular disease) Home Medications cholecalciferol (vitamin D3) 125 mcg (5,000 unit) capsule 5,000 unit PO QDAY 03/15/17 [History Last Taken Unknown] insulin pump syringe 1.8 mL 01/23/18 [History Last Taken Unknown] pregabalin 50 mg capsule (Lyrica) 50 mg PO BID #60 caps 02/12/20 [Rx Last Taken Unknown] omeprazole 40 mg capsule,delayed release 40 mg PO DAILY #90 caps 09/08/20 [Rx Last Taken Unknown] blood-glucose meter,continuous (Dexcom G6 Non Licensed Nuclear Plant Operator misc) #1 ea 11/26/20 [Rx Last Taken Unknown] blood-glucose transmitter (Dexcom G6 Transmitter device) #1 ea 11/26/20 [Rx Last Taken Unknown] fluoxetine 20 mg capsule 20 mg PO BID depression, hot flashes 12/17/20 [History Last Taken Unknown] blood-glucose sensor (Dexcom G6 Sensor device) #9 ea 12/21/20 [Rx Last Taken Unknown] simvastatin 20 mg tablet See Rx Instructions .Route .COMPLEX #90 tabs 05/05/21 [Rx Last Taken Unknown] insulin lispro 100 unit/mL subcutaneous solution (Humalog U-100 Insulin) 100 unit subcut .continuous #90 mL 08/17/21 [Rx Last Taken Unknown] levothyroxine 112 mcg tablet 112 mcg PO DAILY #90 tabs 08/17/21 [Rx Last Taken Unknown] enalapril maleate 10 mg tablet 10 mg PO DAILY #90 tabs 08/31/21 [Rx Last Taken Unknown] diphenhydramine HCl 50 mg capsule 50 mg PO TID PRN rash #30 caps 11/23/21 [Rx Last Taken Unknown] famotidine 40 mg tablet (Pepcid) 40 mg PO DAILY #7 tabs 11/23/21 [Rx Last Taken Unknown] prednisone 20 mg tablet 40 mg PO DAILY #8 tabs 11/23/21 [Rx Last Taken Unknown] Allergy/AdvReac Type Severity Reaction Status Date / Time codeine AdvReac Vomiting Verified 11/23/21 20:39 Family History Mother Diabetes Father Diabetes Grandfather Diabetes Grandmother Diabetes Surgical History History of tonsillectomy Hx of adenoidectomy Hx of section Hx of tubal ligation S/P foot surgery, left S/P transmetatarsal amputation of foot Status post bilateral foot surgery Social History Smoking Status: Never smoker second hand exposure: No alcohol intake: current substance use type: does not use caffeine: Yes ROS ROS ED Constitutional Constitutional ED: Denies chills or fever(s) Eyes Eyes: Denies change in vision or discharge from eye(s) ENT ENT ED: Denies discharge from eye(s), rhinorrhea or sore throat Cardiovascular Cardiovascular: Denies chest pain or palpitations Respiratory/Chest Respiratory/Chest: Denies cough or dyspnea Gastrointestinal Gastrointestinal: Denies abdominal pain, diarrhea, nausea or vomiting Genitourinary Genitourinary ED: Denies difficulty urinating or dysuria Musculoskeletal Musculoskeletal: Denies back pain or extremity pain Integumentary Reports rash; Denies Abrasions Neurologic Neurologic: Denies headache(s) or weakness Psychiatric Psychiatric: Denies anxiety or depression Endocrine Endocrinology: Denies polydipsia or polyuria Allergic/Immunologic Allergic/Immunologic ED: Denies lip swelling or urticaria EXAM Physical Exam Const Vital Signs: 11/23/21 20:37 11/23/21 22:30 Temperature 98.8 F Temperature Source Temporal Pulse Rate 115 H 86 Respiratory Rate 22 H 15 Blood Pressure 128/91 H 119/49 L Blood Pressure Mean 103 72 Pulse Ox 100 99 Oxygen Delivery Method Room Air Room Air Positive well nourished and well developed General Appearance ED: well developed HEENT Reports normocephalic and head/scalp atraumatic HEENT Narrative: No tongue edema. Normal posterior pharynx. Speaks with a strong voice and is tolerating secretions well. Eyes PERRL and EOMs intact bilaterally Neck supple Chest Wall inspection of chest normal and palpation of chest normal Resp normal respiratory effort and clear to auscultation bilaterally Cardio regular rate and regular rhythm GI normal to inspection, nondistended, normoactive bowel sounds Palpation: soft Neuro oriented x3 and no sensory deficits noted Sensorium / Orientation: alert Motor Exam: strength 5/5 throughout Psych mental status grossly normal Skin Skin Narrative: Urticarial lesions noted over the trunk and upper arms along with proximal thighs. MDM MDM MDM Narrative Medical decision making narrative: Patient given Benadryl, Pepcid, Solu-Medrol. On repeat examination after 1 hour the edema associated with the urticaria is improving. The erythema is slowly improving. Patient will be given prescriptions for Benadryl, Pepcid, prednisone. She will call Dr. Marshall tomorrow to be given a different antibiotic. Return instructions are provided. Discharge Plan Triage Chief Complaint: Allergic Reaction ED Provider: Scarlett Linn Dx/Rx/DC Orders Clinical Impression: Urticaria Instructions: ED ADVERSE DRUG REACTION Allergic, ED Hives (Adult) Prescriptions: New prednisone 20 mg tablet 40 mg PO DAILY Qty: 8 0RF diphenhydramine HCl 50 mg capsule 50 mg PO TID PRN (Reason: rash) Qty: 30 0RF famotidine [Pepcid] 40 mg tablet 40 mg PO DAILY Qty: 7 0RF No Action cholecalciferol (vitamin D3) 5,000 unit capsule 5,000 unit PO QDAY fluoxetine 20 mg capsule 20 mg PO BID (DME) Dexcom G6 Sensor Device See Rx Instructions .ROUTE .MEDSUPPLY Qty: 9 3RF Rx Instructions: change every 10 days insulin lispro [Humalog U-100 Insulin] 100 unit/mL solution 100 unit SC .continuous Qty: 90 1RF Rx Instructions: viaInsulin Pump enalapril maleate 10 mg tablet 10 mg PO DAILY Qty: 90 3RF (DME) insulin pump syringe 1 EACH misc 1 ea MC CONT pregabalin [Lyrica] 50 mg capsule 50 mg PO BID Qty: 60 3RF omeprazole 40 mg capsule,delayed release(DR/EC) 40 mg PO DAILY Qty: 90 3RF (DME) Dexcom G6 Non Licensed Nuclear Plant Operator Misc See Rx Instructions .ROUTE .MEDSUPPLY Qty: 1 0RF Rx Instructions: As directed (DME) Dexcom G6 Transmitter Device See Rx Instructions .ROUTE .MEDSUPPLY Qty: 1 3RF Rx Instructions: As directed simvastatin 20 mg tablet See Rx Instructions .ROUTE .COMPLEX Qty: 90 3RF Dose Instruction: TAKE 1 TABLET BY MOUTH AT BEDTIME Rx Instructions: TAKE 1 TABLET BY MOUTH AT BEDTIME levothyroxine 112 mcg tablet 112 mcg PO DAILY Qty: 90 3RF Primary Care Provider: Arjun Steele Referrals: Unique Barnes DPM [Med Staff - Active Staff] - As soon as possible Arjun Steele MD [Primary Care Provider] - Disposition Disposition: Home, Self Care
[2021-11-23] MEDS: MethylPREDNISolone 125 MG/2 ML Vial IV (21:47)
[2021-11-23] MEDS: DiphenhydrAMINE 50 MG/ML Syringe 25 MG IV (21:47)
[2021-11-23] MEDS: Famotidine 200 MG/20 ML MDV 20 MG in 0.9% Normal Saline (Pres. free 8 ML 300 MG IV (21:48)
[2021-11-23 22:30] VITALS: BP 119/49; PULSE 86; RESP 15; O2SAT 99
[2021-11-23 23:27] VITALS: BP 125/59; PULSE 89; RESP 17; O2SAT 100
== END 2021-11-23 23:32 | disposition home or self-care (01) ==
PROVIDERS: Emergency Provider Emergency Medicine; PCP Internal Medicine; Visit Provider Emergency Medicine
DX: L50.0 Allergic urticaria (principal); E10.51 Type 1 diabetes mellitus with diabetic peripheral angiopathy without gangrene; E10.42 Type 1 diabetes mellitus with diabetic polyneuropathy; Z79.4 Long term (current) use of insulin; E78.5 Hyperlipidemia, unspecified; F41.9 Anxiety disorder, unspecified; F32.A Depression, unspecified; E03.9 Hypothyroidism, unspecified; Z79.899 Other long term (current) drug therapy
CPT/HCPCS: 96374; 96375; 99284; A4216; J3490

== ENCOUNTER → 2021-11-30 | Outpatient (CLI) | payer BC, MEDICAID, SELFPAY ==
--- NOTE | 2021-11-30 14:10 | RAD_ITS ---
STUDY: X-RAY CHEST REASON FOR EXAM: Female, 56 years old. CP, SOB TECHNIQUE: PA and lateral views of the chest. COMPARISON: Comparison is made with prior study 09/22/1999. FINDINGS: Bilateral breast prostheses. There are increased linear markings at the lung bases more prominent at the right lung base suggestive of early infiltrates and/or atelectasis. There is no demonstrated pleural abnormality. Normal size heart. Normal mediastinum and diana. Normal visualized pulmonary arteries. Normal visualized aortic arch and descending thoracic aorta. Normal visualized thoracic spine. Normal visualized ribs, clavicles, and shoulders. There is no demonstrated abnormality of the visualized soft tissue structures of the upper abdomen. RAD/Chest PA and Lateral IMPRESSION: Increased markings at both lung bases slightly worse on the right side suggestive of either atelectasis and/or early bibasilar infiltrates. Electronically Signed: John Arana MD at 15:05 EDT ,
--- NOTE | 2021-11-30 14:10 | EKG12_ITS ---
Test Reason : SOB Blood Pressure : / mmHG Vent. Rate : 085 BPM Atrial Rate : 085 BPM P-R Int : 128 ms QRS Dur : 076 ms QT Int : 382 ms P-R-T Axes : 019 001 002 degrees QTc Int : 454 ms Normal sinus rhythm Low voltage QRS (Limb Leads) Poor R wave progression Nonspecific T wave abnormality Confirmed by TE QUINTANA, RAQUEL ([id number]), purchase request editor STANLEY RODRÍGUEZ ([id number]) on 12/01/2021 11:32:58 AM Referred By: Rupali Walton Confirmed By:RAQUEL TIWARI MD
== END | disposition home or self-care (01) ==
PROVIDERS: PCP Internal Medicine; Referring Provider Physician Assistant; Visit Provider Physician Assistant
DX: R07.9 Chest pain, unspecified (principal); R06.02 Shortness of breath; R10.13 Epigastric pain
CPT/HCPCS: 71046; 93005

== ENCOUNTER → 2021-11-30 | Outpatient (CLI) | payer BC, MEDICAID, SELFPAY ==
[2021-11-30 14:26] LABS: Absolute Lymphocyte Count 2.57 X10^3/uL (0.83-4.51); Absolute Neutrophil Count 5.8 X10^3/uL (2.0-7.7); Basophil# 0.07 X10^3/uL; Basophil% 0.7 % (0-1); Eosinophil# 0.46 X10^3/uL; Eosinophils% 4.7 % (0-5); Hematocrit 37.3 % (37-47); Hemoglobin 12.5 g/dL (12.0-15.0); Lymphocyte # 2.57 X10^3/ul (0.83-4.51); Lymphocyte % 26.4 % (19-41); Mean Corp Hgb Conc 33.5 g/dL (32-36); Mean Corpuscular Hgb 30.6 pg (27.0-32.0); Mean Corpuscular Volume 91.4 fL (81-99); Mean Platelet Vol. 10.5 fl (6.2-12.0); Monocyte# 0.67 X10^3/uL; Monocyte% 6.9 % (0-10); NRBC Flagged by Analyzer 0 % (0-5); Neutrophil # 5.79 X10^3/uL (2.7-7.7); Neutrophil % 59.4 % (47-70); Platelet Count 250 K/mm3 (150-450); Red Blood Count 4.08 M/mm3 (4.2-5.4); White Blood Count 9.8 K/mm3 (4.4-11.0)
[2021-11-30 14:44] LABS: ALB/GLOB Ratio 0.7 RATIO (0.9-2.4); AST(SGOT) 12 U/L (15-37); Alanine Aminotransfer ALT/SGPT 21 U/L (13-56); Alkaline Phosphatase 98 U/L (45-117); Amylase 40 U/L (25-115); Anion Gap 6 (5-15); BUN 15 mg/dL (7-18); BUN/Creat Ratio 17.8 RATIO (10-20); Calcium,Total 8.2 mg/dL (8.5-10.1); Chloride 106 mmol/L (98-107); Creatinine, Serum 0.84 mg/dL (0.55-1.02); EST Glomerular Filtration Rate 75 mL/min (>60); Est Glom Filt Rate - Afr Amer 91 mL/min (>60); Globulin 4.1 g/dL (2.2-4.2); Glucose 182 mg/dL (74-106); Lipase 86 U/L (73-393); Potassium 4.6 mmol/L (3.5-5.1); Protein, Total 7.1 g/dL (6.4-8.2); Sodium Level 133 mmol/L (136-145); Troponin-I HS 4 pg/mL (3.0-54.0)
== END | disposition home or self-care (01) ==
LOC: BIMLAB 13:37
PROVIDERS: PCP Internal Medicine; Referring Provider Physician Assistant; Visit Provider Physician Assistant
DX: R06.02 Shortness of breath (principal); R07.9 Chest pain, unspecified; R10.13 Epigastric pain
CPT/HCPCS: 36415; 80053; 82150; 83690; 84484; 85025; 87635; U0003; U0005

== ENCOUNTER → 2022-02-09 | Outpatient (CLI) | payer BC, MEDICAID, SELFPAY ==
[2022-02-09 13:28] LABS: T4 Free Direct 1.25 ng/dL (0.76-1.46); Thyroid Stim Hormone (TSH) 6.92 uIU/mL (0.358-3.74)
== END | disposition home or self-care (01) ==
LOC: BIMLAB 09:47
PROVIDERS: PCP Internal Medicine; Referring Provider Nurse Practitioner Family; Visit Provider Nurse Practitioner Family
DX: E03.9 Hypothyroidism, unspecified (principal)
CPT/HCPCS: 36415; 84439; 84443

== ENCOUNTER → 2022-04-26 | Outpatient (CLI) | payer BC, MEDICAID, SELFPAY | END | disposition home or self-care (01) | PROVIDERS: PCP Internal Medicine; Visit Provider Podiatrist | DX: L97.522 Non-pressure chronic ulcer of other part of left foot with fat layer exposed (principal) | CPT/HCPCS: 87070; 87077; 87186; 87205 ==

== ENCOUNTER → 2022-08-18 | Outpatient (CLI) | payer MEDICAID, SELFPAY ==
[2022-08-18 17:06] LABS: Absolute Lymphocyte Count 2.12 X10^3/uL (0.83-4.51); Absolute Neutrophil Count 3.4 X10^3/uL (2.0-7.7); Basophil# 0.07 X10^3/uL; Basophil% 1.1 % (0-1); Eosinophil# 0.19 X10^3/uL; Hematocrit 39.1 % (37-47); Lymphocyte # 2.12 X10^3/ul (0.83-4.51); Lymphocyte % 33.5 % (19-41); Mean Corp Hgb Conc 33.2 g/dL (32-36); Mean Corpuscular Hgb 29.8 pg (27.0-32.0); Mean Corpuscular Volume 89.7 fL (81-99); Mean Platelet Vol. 10.6 fl (6.2-12.0); Monocyte# 0.48 X10^3/uL; Monocyte% 7.6 % (0-10); NRBC Flagged by Analyzer 0 % (0-5); Neutrophil # 3.44 X10^3/uL (2.7-7.7); Neutrophil % 54.5 % (47-70); Platelet Count 212 K/mm3 (150-450); RBC Distribution Width SD 42.9 fl (35.1-43.9); Red Blood Count 4.36 M/mm3 (4.2-5.4); White Blood Count 6.3 K/mm3 (4.4-11.0)
[2022-08-18 17:27] LABS: Microalbumin,Random Urine 36.7 mg/L (NO RANGE EST.); Microalbumin:Creatinine Ratio 15.3 mg/g CRE (<30 mg/g CRE)
[2022-08-18 17:49] LABS: ALB/GLOB Ratio 1.2 RATIO (0.9-2.4); AST(SGOT) 15 U/L (15-37); Alanine Aminotransfer ALT/SGPT 25 U/L (13-56); Albumin, Serum 3.9 g/dL (3.2-5.0); Alkaline Phosphatase 93 U/L (45-117); Anion Gap 8 (5-15); BUN 14 mg/dL (7-18); BUN/Creat Ratio 18.4 RATIO (10-20); Calcium,Total 8.7 mg/dL (8.5-10.1); Chloride 110 mmol/L (98-107); Cholesterol 172 mg/dL (200); Creatinine, Serum 0.76 mg/dL (0.55-1.02); EST Glomerular Filtration Rate 84 mL/min (>60); Est Glom Filt Rate - Afr Amer 101 mL/min (>60); Globulin 3.3 g/dL (2.2-4.2); Glucose 119 mg/dL (74-106); High Density Lipoprotein 52 mg/dL; Potassium 4.5 mmol/L (3.5-5.1); Protein, Total 7.2 g/dL (6.4-8.2); Sodium Level 140 mmol/L (136-145); Triglycerides 141 mg/dL; Very Low Density Lipoprotein 28 mg/dL (5-40)
[2022-08-18 18:17] LABS: T4 Free Direct 1.25 ng/dL (0.76-1.46); Thyroid Stim Hormone (TSH) 6.45 uIU/mL (0.358-3.74)
[2022-08-18 18:35] LABS: Vitamin D,25 Hydroxy 21.5 ng/mL
== END | disposition home or self-care (01) ==
LOC: BIMLAB 16:13
PROVIDERS: Internal Medicine Endocrinology, Diabetes & Metabolism; PCP Internal Medicine; Visit Provider Nurse Practitioner Family
DX: F41.9 Anxiety disorder, unspecified (principal); E10.65 Type 1 diabetes mellitus with hyperglycemia; E10.42 Type 1 diabetes mellitus with diabetic polyneuropathy; F32.A Depression, unspecified; E78.2 Mixed hyperlipidemia; E03.9 Hypothyroidism, unspecified; Z96.41 Presence of insulin pump (external) (internal); Z46.81 Encounter for fitting and adjustment of insulin pump; E66.09 Other obesity due to excess calories; Z68.32 Body mass index [BMI] 32.0-32.9, adult; E55.9 Vitamin D deficiency, unspecified
CPT/HCPCS: 36415; 80053; 80061; 82043; 82306; 82570; 84439; 84443; 85025

== ENCOUNTER 2022-09-28 18:22 | Inpatient (IN) | payer MEDICAID, SELFPAY ==
[2022-09-28] VITALS (8 sets, daily range): BP systolic 121–181; BP diastolic 57–81; PULSE 76–98; RESP 14–20; TEMP 35.5–36.6; O2SAT 94–100; BMI 34.2; BMI 41.1
--- NOTE | 2022-09-28 18:45 | EDS_ITS ---
HPI History of Present Illness Chief Complaint: Abd Pain Informant: patient Onset/Context/Timing Onset: Yesterday Context: Gradual Onset Current Severity: Severe Maximum Severity: Severe Narrative Narrative: Patient presents with epigastric abdominal pain. She states pain started yesterday gradually throughout the day and is continued to worsen. She developed nausea and vomiting today. No fever or chills. No diarrhea. She does have type 1 diabetes and states her blood sugars have been good. She denies history of gallbladder problems or pancreatitis. [facility] Medical History Acute hematogenous osteomyelitis Anxiety and depression bilat eye surgery Breast cancer screening Charcot's joint of left foot Diabetes type 1, controlled Diabetic foot infection Dysmenorrhea great toe fusion History of endometrial biopsy Hyperlipidemia Hyperparathyroidism Hypothyroidism Needs flu shot nonhealing plantar l foot wound novasure Obesity open wound of toes Peripheral neuropathy Peripheral vascular disease of lower extremity PVD (peripheral vascular disease) Skin picking habit Home Medications cholecalciferol (vitamin D3) 125 mcg (5,000 unit) capsule 5,000 unit PO QDAY 03/15/17 [History Last Taken Unknown] insulin pump syringe 1.8 mL 01/23/18 [History Last Taken Unknown] blood-glucose meter,continuous (Dexcom G6 Smoking Tobacco Cutter Operator) #1 ea 11/26/20 [Rx Last T ak Unknown] blood-glucose sensor (Dexcom G6 Sensor device) #9 ea 01/26/22 [Rx Last Taken Unknown] blood-glucose transmitter (Dexcom G6 Transmitter device) #1 ea 01/26/22 [Rx Last Taken Unknown] omeprazole 40 mg capsule,delayed release 40 mg PO DAILY #90 caps 02/09/22 [Rx Last Taken Unknown] simvastatin 20 mg tablet See Rx Instructions .Route .COMPLEX #90 tabs 05/02/22 [Rx Last Taken Unknown] insulin lispro 100 unit/mL subcutaneous solution (Humalog U-100 Insulin) 100 unit subcut .continuous #90 mL 06/29/22 [Rx Last Taken Unknown] enalapril maleate 5 mg tablet See Rx Instructions .Route .COMPLEX #90 tabs 07/20/22 [Rx Last Taken Unknown] levothyroxine 125 mcg tablet 125 mcg PO DAILY #90 tabs 07/20/22 [Rx Last Taken Unknown] fluoxetine 40 mg capsule 40 mg PO BID depression, hot flashes #180 caps 08/18/22 [Rx Last Taken Unknown] insulin pump cart,cont inf,BT (Omnipod Dash Pods (Gen 4) subcutaneous cartridge) #30 ea 09/13/22 [Rx Last Taken Unknown] Allergy/AdvReac Type Severity Reaction Status Date / Time codeine AdvReac Vomiting Verified 09/28/22 18:23 Family History Mother Diabetes Father Diabetes Grandfather Diabetes Grandmother Diabetes Surgical History History of tonsillectomy Hx of adenoidectomy Hx of section Hx of tubal ligation S/P foot surgery, left S/P transmetatarsal amputation of foot Status post bilateral foot surgery Social History Smoking Status: Never smoker second hand exposure: No alcohol intake: current substance use type: does not use caffeine: Yes ROS ROS ED Constitutional Constitutional ED: Denies chills or fever(s) Eyes Eyes: Denies change in vision or discharge from eye(s) ENT ENT ED: Denies discharge from eye(s), rhinorrhea or sore throat Cardiovascular Cardiovascular: Denies chest pain or palpitations Respiratory/Chest Respiratory/Chest: Denies cough or dyspnea Gastrointestinal Gastrointestinal: Reports abdominal pain, nausea and vomiting; Denies diarrhea Genitourinary Genitourinary ED: Denies dysuria Musculoskeletal Musculoskeletal: Denies back pain or extremity pain Integumentary Denies Abrasions or rash Neurologic Neurologic: Denies headache(s) or weakness Psychiatric Psychiatric: Denies anxiety or depression Allergic/Immunologic Allergic/Immunologic ED: Denies lip swelling or urticaria EXAM Physical Exam Const Vital Signs: 09/28/22 18:23 09/28/22 18:59 09/28/22 20:42 Temperature 96 F L Temperature Source Temporal Pulse Rate 86 76 Respiratory Rate 14 Blood Pressure 181/77 H 123/62 H Blood Pressure Mean 111 82 Pulse Ox 98 97 96 Oxygen Delivery Method Room Air Room Air Positive well nourished and well developed General Appearance ED: well developed HEENT Reports dry mucous membranes Mouth ED: Yes dry mucous membranes Mouth: dry mucous membranes Eyes EOMs intact bilaterally Neck no lymphadenopathy Chest Wall inspection of chest normal and palpation of chest normal Resp normal respiratory effort and clear to auscultation bilaterally Cardio regular rate and regular rhythm GI GI Narrative: Focal tenderness in the epigastrium. No guarding or rebound. Hypoactive but present bowel sounds are noted. Extremity normal to inspection Neuro oriented x3 Psych Mood & Affect: anxious MDM MDM MDM Narrative Medical decision making narrative: Patient placed on mold checker. EKG obtained to evaluate for cardiac arrhythmia/ischemia. Labwork obtained to evaluate for leukocytosis, anemia, and electrolyte derangement. Patient given morphine and Zofran along with IV fluids. Lab Data Attestation: I reviewed the patient's lab results. Labs: Laboratory Results - last 24 hr 09/28/22 09/28/22 09/28/22 18:40 18:40 19:04 WBC 8.2 RBC 4.14 L Hgb 12.2 Hct 36.5 L MCV 88.2 MCH 29.5 MCHC 33.4 RDW Std Deviation 41.1 RDW Coeff of Frank 12.8 Plt Count 218 MPV 10.3 Immature Gran % (Auto) 0.500 Neut % (Auto) 69.9 Lymph % (Auto) 20.8 Rankin % (Auto) 6.8 Eos % (Auto) 1.3 Baso % (Auto) 0.7 Absolute Neuts (auto) 5.7 Absolute Lymphs (auto) 1.70 Nucleated RBC % 0 Sodium 139 Potassium 3.8 Chloride 105 Carbon Dioxide 22.0 Anion Gap 12 BUN 16 Creatinine 0.90 Estim Creat Clear Calc 61.71 Est GFR (MDRD) Af Amer 83 Est GFR (MDRD) Non-Af 69 BUN/Creatinine Ratio 17.7 Glucose 175 H Calcium 9.0 Total Bilirubin 0.50 Direct Bilirubin 0.14 AST 12 L ALT 20 Alkaline Phosphatase 90 Troponin I High Sens 4 Total Protein 7.3 Albumin 3.6 Globulin 3.7 Lipase 14 POC Glucose 174 H Radiography Diagnostic Testing: Clinical Impression(s) from Imaging Studies Abdomen/Pelvis CT 09/28/22 19:53 IMPRESSION: (NOT LISTED IN ORDER OF SIGNIFICANCE) Acute appendicitis. There is no evidence to suggest abscess formation. Other findings as above. Non standard communication findings protocol was initiated. Electronically Signed: Sawyer Aguillon MD at 20:56 EDT , ADDENDUM: 09/28/222108 IMPRESSION: (NOT LISTED IN ORDER OF SIGNIFICANCE) Acute appendicitis. There is no evidence to suggest abscess formation. Other findings as above. Non standard communication findings protocol was initiated. N.B. : The above Results were Read Back by Sawyer Aguillon MD to Scarlett Linn MD, and understanding confirmed on 09/28/2022 21:03:01 (ET). Electronically Signed: Sawyer Aguillon MD at 20:56 EDT , EKG Initial EKG: Attestation: I personally reviewed and interpreted this EKG as follows: Interpretation: Sinus Rhythm (Sinus at 82 with no acute ischemia.) Differential Diagnosis Chest pain/SOB: ACS ACS: Positive for no evidence of ACS based on cardiac biomarkers and EKG without ischemia Abdominal Pain: Cholecystitis Reason(s) Cholecystitis less likely: NL Gall Bladder on imagng studies, Pancreatitis Reason(s) Pancreatitis less likely: NL lab values and Bowel obstruction Reason(s) bowel obstruction less likely: no evidence of bowel obstruction on imaging studies Treatment and Re-Evaluation :: CBC is unremarkable with normal white count and no left shift. Chemistry studies normal. Glucose is 175. LFTs and lipase normal. Troponin is normal at 4. EKG is sinus rhythm with no acute ischemia. On repeat evaluation patient is improved but still uncomfortable. In light of this CT scan with IV contrast obtained. CT scan abdomen and pelvis reveals evidence of acute appendicitis. Test results are discussed with the patient and she is given a dose of Zosyn. I spoke with Dr. Mccormack who will be in to see the patient with plan to go to the OR [facility]. Discharge Plan Triage Chief Complaint: Abd Pain ED Provider: Scarlett Linn Dx/Rx/DC Orders Clinical Impression: Acute appendicitis Prescriptions: No Action cholecalciferol (vitamin D3) 5,000 unit capsule 5,000 unit PO QDAY (DME) Dexcom G6 Sensor Device See Rx Instructions .ROUTE .MEDSUPPLY Qty: 9 3RF Rx Instructions: change every 10 days (DME) Dexcom G6 Transmitter Device See Rx Instructions .ROUTE .MEDSUPPLY Qty: 1 3RF Rx Instructions: As directed omeprazole 40 mg capsule,delayed release(DR/EC) 40 mg PO DAILY Qty: 90 3RF fluoxetine 40 mg capsule 40 mg PO BID Qty: 180 3RF (DME) insulin pump syringe 1 EACH misc 1 ea MC CONT (DME) Dexcom G6 Smoking Tobacco Cutter Operator Misc See Rx Instructions .ROUTE .MEDSUPPLY Qty: 1 0RF Rx Instructions: As directed simvastatin 20 mg tablet See Rx Instructions .ROUTE .COMPLEX Qty: 90 3RF Dose Instruction: TAKE 1 TABLET BY MOUTH AT BEDTIME Rx Instructions: TAKE 1 TABLET BY MOUTH AT BEDTIME insulin lispro [Humalog U-100 Insulin] 100 unit/mL solution 100 unit SC .continuous Qty: 90 1RF Rx Instructions: viaInsulin Pump levothyroxine 125 mcg tablet 125 mcg PO DAILY Qty: 90 1RF enalapril maleate 5 mg tablet See Rx Instructions .ROUTE .COMPLEX Qty: 90 1RF Dose Instruction: TAKE 1 TABLET BY MOUTH EVERY DAY Rx Instructions: TAKE 1 TABLET BY MOUTH EVERY DAY (DME) Omnipod Dash Pods (Gen 4) Cartridge See Rx Instructions .Route Qty: 30 1RF Rx Instructions: change every 3 days Primary Care Provider: Arjun Steele Referrals: Arjun Steele MD [Primary Care Provider] - Disposition Disposition: Acute Care Hospital [facility]
[2022-09-28] MEDS: 0.9% Normal Saline 1,000 ML 1000 ML IV (18:51)
[2022-09-28] MEDS: Morphine 4 MG/ML Syringe IV (18:51)
[2022-09-28] MEDS: Ondansetron 4 MG/2 ML Vial IV (18:51)
[2022-09-28 18:52] LABS: Absolute Neutrophil Count 5.7 X10^3/uL (2.0-7.7); Basophil# 0.06 X10^3/uL; Basophil% 0.7 % (0-1); Eosinophil# 0.11 X10^3/uL; Eosinophils% 1.3 % (0-5); Hematocrit 36.5 % (37-47); Hemoglobin 12.2 g/dL (12.0-15.0); Lymphocyte % 20.8 % (19-41); Mean Corp Hgb Conc 33.4 g/dL (32-36); Mean Corpuscular Hgb 29.5 pg (27.0-32.0); Mean Corpuscular Volume 88.2 fL (81-99); Mean Platelet Vol. 10.3 fl (6.2-12.0); Monocyte# 0.56 X10^3/uL; Monocyte% 6.8 % (0-10); NRBC Flagged by Analyzer 0 % (0-5); Neutrophil # 5.72 X10^3/uL (2.7-7.7); Neutrophil % 69.9 % (47-70); Platelet Count 218 K/mm3 (150-450); RBC Distribution Width CV 12.8 % (11.6-14.6); RBC Distribution Width SD 41.1 fl (35.1-43.9); Red Blood Count 4.14 M/mm3 (4.2-5.4); White Blood Count 8.2 K/mm3 (4.4-11.0)
[2022-09-28 19:11] LABS: AST(SGOT) 12 U/L (15-37); Alanine Aminotransfer ALT/SGPT 20 U/L (13-56); Albumin, Serum 3.6 g/dL (3.2-5.0); Alkaline Phosphatase 90 U/L (45-117); Anion Gap 12 (5-15); BUN 16 mg/dL (7-18); BUN/Creat Ratio 17.7 RATIO (10-20); Bilirubin, Direct 0.14 mg/dL (0.00-0.30); Chloride 105 mmol/L (98-107); EST Glomerular Filtration Rate 69 mL/min (>60); Est Glom Filt Rate - Afr Amer 83 mL/min (>60); Estimated Creatinine Clearance 61.71 ml/min; Globulin 3.7 g/dL (2.2-4.2); Glucose 175 mg/dL (74-106); Lipase 14 U/L (13-75); Potassium 3.8 mmol/L (3.5-5.1); Protein, Total 7.3 g/dL (6.4-8.2); Sodium Level 139 mmol/L (136-145); Troponin-I HS 4 pg/mL (3.0-54.0)
[2022-09-28 19:24] LABS: Bedside Glucose 174 mg/dL (74-106)
--- NOTE | 2022-09-28 19:53 | CT_ITS ---
We are attempting to reach an attending provider to discuss findings. An addendum with communication details will be sent when the communication is complete. STUDY: CT Abdomen And Pelvis W/ Contrast Injection 09/28/2022 8:52 PM REASON FOR EXAM: Female, 56 years old. pain started Monday and has gotten worse, emesis, nausea, epigastric pain epigastric pain Individualized dose optimization techniques were used for this CT. COMPARISON: None. TECHNIQUE: CT Abdomen And Pelvis W/ Contrast Injection IV 100mL [id number] FINDINGS: There are atherosclerotic calcifications of visualized coronary arteries. The visualized portions of the heart are within normal limits. Normal liver. Normal gallbladder and extrahepatic biliary system. Normal spleen. Normal pancreas. Normal bilateral adrenal glands. No acute findings of the right kidney. No acute findings of the left kidney. There is a small hiatal hernia. Normal small intestine. Stool throughout the colon. There is a tubular, thick-walled appendix (>9.2mm), consistent with acute appendicitis. Retrocecal appendix. There are calcifications of the abdominal aorta. This is consistent for atherosclerotic disease. There is NO abdominal aortic aneurysm. Vascular workup can be obtained based on clinical correlation. Normal inferior vena cava. Subcentimeter mesenteric lymph nodes. Normal urinary bladder. There is an umbilical hernia containing fat. There is bilateral neural foraminal stenosis at L4-5 and L5-S1. There are diffuse degenerative changes of the visualized lumbar spine. CT/Abdomen/Pelvis W IV Cont ONLY IMPRESSION: (NOT LISTED IN ORDER OF SIGNIFICANCE) Acute appendicitis. There is no evidence to suggest abscess formation. Other findings as above. Non standard communication findings protocol was initiated. Electronically Signed: Sawyer Aguillon MD at 20:56 EDT ,
[2022-09-28] MEDS: 0.9% Normal Saline 1,000 ML 150 ML IV (20:05)
--- NOTE | 2022-09-28 21:55 | ED.RN ---
Report given to OR nurse.
[2022-09-28] MEDS: Lactated Ringers 1,000 ML 15 ML IV (22:05)
--- NOTE | 2022-09-28 22:05 | HP.PCM.SX_ITS ---
HPI - General HPI Narrative BEAN LEES, is a 56 F who presents with epigastric pain and nausea and vomiting. Patient reports the pain started off-and-on on Monday but became worse yesterday. She reports that she is nauseous and she threw up on her way into the hospital today. She is currently nauseous and feel like she is going to throw up as well. She denies fevers or chills. Says the pain is all over her upper abdomen. [facility]LY [facility] Medical History Acute hematogenous osteomyelitis Anxiety and depression bilat eye surgery Breast cancer screening Charcot's joint of left foot Diabetes type 1, controlled Diabetic foot infection Dysmenorrhea great toe fusion History of endometrial biopsy Hyperlipidemia Hyperparathyroidism Hypothyroidism Needs flu shot nonhealing plantar l foot wound novasure Obesity open wound of toes Peripheral neuropathy Peripheral vascular disease of lower extremity PVD (peripheral vascular disease) Skin picking habit Home Medications cholecalciferol (vitamin D3) 125 mcg (5,000 unit) capsule 5,000 unit PO QDAY 03/15/17 [History Last Taken Unknown] insulin pump syringe 1.8 mL 01/23/18 [History Last Taken Unknown] blood-glucose meter,continuous (Dexcom G6 Customer Service Specialist) #1 ea 11/26/20 [Rx Last Taken Unknown] blood-glucose sensor (Dexcom G6 Sensor device) #9 ea 01/26/22 [Rx Last Taken Unknown] blood-glucose transmitter (Dexcom G6 Transmitter device) #1 ea 01/26/22 [Rx Last Taken Unknown] omeprazole 40 mg capsule,delayed release 40 mg PO DAILY #90 caps 02/09/22 [Rx Last Taken Unknown] simvastatin 20 mg tablet See Rx Instructions .Route .COMPLEX #90 tabs 05/02/22 [Rx Last Taken Unknown] insulin lispro 100 unit/mL subcutaneous solution (Humalog U-100 Insulin) 100 unit subcut .continuous #90 mL 06/29/22 [Rx Last Taken Unknown] enalapril maleate 5 mg tablet See Rx Instructions .Route .COMPLEX #90 tabs 07/20/22 [Rx Last Taken Unknown] levothyroxine 125 mcg tablet 125 mcg PO DAILY #90 tabs 07/20/22 [Rx Last Taken Unknown] fluoxetine 40 mg capsule 40 mg PO BID depression, hot flashes #180 caps 08/18/22 [Rx Last Taken Unknown] insulin pump cart,cont inf,BT (Omnipod Dash Pods (Gen 4) subcutaneous cartridge) #30 ea 09/13/22 [Rx Last Taken Unknown] Allergy/AdvReac Type Severity Reaction Status Date / Time codeine AdvReac Vomiting Verified 09/28/22 18:23 Family History Mother Diabetes Father Diabetes Grandfather Diabetes Grandmother Diabetes Surgical History History of tonsillectomy Hx of adenoidectomy Hx of section Hx of tubal ligation S/P foot surgery, left S/P transmetatarsal amputation of foot Status post bilateral foot surgery Social History Smoking Status: Never smoker second hand exposure: No alcohol intake: current substance use type: does not use caffeine: Yes ROS Constitutional Constitutional: Denies anorexia, chills, fatigue or fever(s) Eyes Eyes: Denies blurry vision ENT HEENT: Denies abnormal hearing Cardiovascular Cardiovascular: Denies chest pain Respiratory/Chest Respiratory/Chest: Denies cough or dyspnea Gastrointestinal Gastrointestinal: Reports abdominal pain, nausea and vomiting; Denies constipation Genitourinary Genitourinary: Denies change in urinary stream Musculoskeletal Musculoskeletal: Denies abnormal gait Integumentary Integumentary: Denies jaundice Neurologic Neurologic: Denies abnormal gait Psychiatric Psychiatric: Denies anxiety Hematologic/Lymphatic Hematologic/Lymphatic: Denies easy bleeding Vital Signs Vital Signs Vital Signs: 09/28/22 18:23 09/28/22 18:59 09/28/22 20:42 Temperature 96 F L Temperature Source Temporal Pulse Rate 86 76 Respiratory Rate 14 Blood Pressure 181/77 H 123/62 H Blood Pressure Mean 111 82 Pulse Ox 98 97 96 Oxygen Delivery Method Room Air Room Air 09/28/22 21:37 Temperature 98 F Temperature Source Oral Pulse Rate 81 Respiratory Rate 18 Blood Pressure 146/72 H Blood Pressure Mean 96 Pulse Ox 98 Oxygen Delivery Method Room Air Weight Weight: 199 lb 11.821 oz Body Mass Index (BMI) 34.2 Physical Exam Const oriented x3 and no apparent distress Resp normal respiratory effort Cardio regular rate and regular rhythm GI soft to palpation Inspection: Negative for abdominal distention Palpation: tender periumbilical Results Lab / Micro Data Result Diagrams: 09/28/22 18:40 09/28/22 18:40 Labs: Laboratory Results - last 24 hr 09/28/22 18:40: WBC 8.2, RBC 4.14 L, Hgb 12.2, Hct 36.5 L, MCV 88.2, MCH 29.5, MCHC 33.4, RDW Std Deviation 41.1, RDW Coeff of Frank 12.8, Plt Count 218, MPV 10.3, Immature Gran % (Auto) 0.500, Neut % (Auto) 69.9, Lymph % (Auto) 20.8, [place] % (Auto) 6.8, Eos % (Auto) 1.3, Baso % (Auto) 0.7, Absolute Neuts (auto) 5.7, Absolute Lymphs (auto) 1.70, Nucleated RBC % 0 09/28/22 18:40: Sodium 139, Potassium 3.8, Chloride 105, Carbon Dioxide 22.0, Anion Gap 12, BUN 16, Creatinine 0.90, Estim Creat Clear Calc 61.71, Est GFR (MDRD) Af Amer 83, Est GFR (MDRD) Non-Af 69, BUN/Creatinine Ratio 17.7, Glucose 175 H, Calcium 9.0, Total Bilirubin 0.50, Direct Bilirubin 0.14, AST 12 L, ALT 20, Alkaline Phosphatase 90, Troponin I High Sens 4, Total Protein 7.3, Albumin 3.6, Globulin 3.7, Lipase 14 09/28/22 19:04: POC Glucose 174 H Radiology Impression Abdomen/Pelvis CT 09/28/22 19:53 IMPRESSION: (NOT LISTED IN ORDER OF SIGNIFICANCE) Acute appendicitis. There is no evidence to suggest abscess formation. Other findings as above. Non standard communication findings protocol was initiated. Electronically Signed: Sawyer Aguillon MD at 20:56 EDT , ADDENDUM: 09/28/222108 IMPRESSION: (NOT LISTED IN ORDER OF SIGNIFICANCE) Acute appendicitis. There is no evidence to suggest abscess formation. Other findings as above. Non standard communication findings protocol was initiated. N.B. : The above Results were Read Back by Sawyer Aguillon MD to Scarlett Linn MD, and understanding confirmed on 09/28/2022 21:03:01 (ET). Electronically Signed: Sawyer Aguillon MD at 20:56 EDT , Assessment & Plan Assessment/Plan (1) Acute appendicitis: QUALIFIERS: Acute appendicitis type: unspecified acute appendicitis type Qualified Code(s): K35.80 - Unspecified acute appendicitis PLAN: Patient comes in with abdominal pain and nausea and vomiting. Her white count was normal and her left differential was at the upper limits of normal. CT scan revealed acute appendicitis with a retrocecal appendix. I discussed laparoscopic appendectomy with the patient in detail. I discussed the risks including but not limited to bleeding, infection, injury other organs such as the bowel, bladder, ureter. Patient understands the risks and is willing to proceed with laparoscopic appendectomy. Patient was given Zosyn in the emergency room. I will remove her insulin pump and give her sliding scale insulin until discharge. Rahat Mccormack MD Pager: [facility] [address] [place] [address], [address] [place] [address] Office:
[2022-09-28] MEDS: Bupivacaine 0.25% 30 ML Vial (22:33)
--- NOTE | 2022-09-28 23:08 | OP.PCM_ITS ---
Report of Operation Date of Procedure: 09/28/22 Pre-Operative Diagnosis: Acute appendicitis Post-Operative Diagnosis: Same Surgery/Procedure Performed:: Laparoscopic appendectomy Specimen's removed: Appendix Description of Procedure: The patient was brought into the operating room and general anesthesia was induced. The left arm was tucked and the abdomen was prepped and draped in usual sterile fashion. A small midline incision was made superior to the umbilicus and deepened to the level of the fascia. The fascia was elevated and incised. The peritoneum was also elevated and incised. A finger sweep was per formed and a balloon trocar was placed into the abdomen and inflated. The abdomen was insufflated to 15 mmHg and the camera was inserted and the abdomen was inspected for any injuries upon entering the abdomen. There were none. The patient was placed in Trendelenburg position and a 5 mm ports placed in the left lower quadrant and suprapubic areas under direct visualization. Next using atraumatic bowel graspers the appendix was identified. The appendix was grasped and elevated and Enseal was used to take down the mesoappendix. A stapler was used to come across the base of the appendix. The appendix was then placed in Endo Catch bag and removed through the umbilical incision. The staple line was inspected and found to be hemostatic and intact. The 2 5 mm ports are removed under direct visualization. The balloon trocar was deflated and removed and all the air was removed from the abdomen. The umbilical incision fascia was closed with an 0 Vicryl [id number] suture. The incisions were then irrigated with saline and dried. Local anesthetic was injected into the incision sites. The skin incisions were then closed with interrupted 4-0 Monocryl suture and Steri- Strips. Bandages were applied and the patient was awoken and taken to PACU in stable condition. Patient tolerated the procedure well. Admit VTE Documentation VTE Mechan Device Prophylaxis: SCD's
[2022-09-28 23:32] LABS: Bedside Glucose 193 mg/dL (74-106)
[2022-09-29] VITALS (9 sets, daily range): BP systolic 106–146; BP diastolic 45–72; PULSE 81–103; RESP 16–20; TEMP 36.6–37.3; O2SAT 94–99
--- NOTE | 2022-09-29 | APP_PTH ---
PATIENT: BEAN LEES LOC: MS3 U#:[id number] AGE/SX: 56/F ROOM: GA315 RE09/28/[address]: Dr. Rahat Mccormack MD : 1965 BED: 1 DIS: 09/30/2022 SPEC #: [id number] RECD: 09/29/22 09:46 STATUS: SUGAR REDi #: [id number] MYKEL: 09/29/22 00:[address]: Rahat Mccormack DEPT: SURGICAL PATHOLOGY RECD BY: Renata Vale ENTERED: 09/29/22 10:35 SP TYPE: APPENDIX OTHR DR: MD Dr. Stacy Redmond, Tissues: Appendix, NOS Procedures: Surgery Specimen Level III HEADER OPERATION: Laparoscopic appendectomy PRE-OP DIAGNOSIS: Acute appendicitis TISSUE SUBMITTED: Appendix MICROSCOPIC DIAGNOSIS Appendix, appendectomy: Fibrofatty obliteration of distal appendiceal lumen. No evidence of appendicitis. AM:meagan 10/03/2022 MICROSCOPIC DESCRIPTION Slides are reviewed. GROSS DESCRIPTION Received in fixative is one container labeled with the patient's name and designated appendix. The specimen consists of an appendix measuring 7.0 cm in length and 1.0 cm in average diameter. No gross perforations are evident. Serial sections reveal a patent lumen. No mass lesion is identified. Personal Care Aid sections are submitted in one cassette. / AM:meagan 09/29/2022 The remainder of the appendix is submitted in cassettes 3 & 4. / AM:meagan 09/30/2022 TC:5 CPT: 73256
[2022-09-29] MEDS: 0.9% Normal Saline 1,000 ML 60 ML IV ×2 (00:42→16:37)
[2022-09-29] MEDS: Ondansetron 4 MG/2 ML Vial IV (02:21)
[2022-09-29] MEDS: Ketorolac 15 MG/ML Vial IV (04:21)
[2022-09-29] MEDS: Acetaminophen 325 MG Tablet 650 MG PO ×2 (04:22→12:25)
[2022-09-29] MEDS: Levothyroxine 125 MCG Tablet PO (05:27)
[2022-09-29 06:23] LABS: Absolute Lymphocyte Count 0.71 X10^3/uL (0.83-4.51); Absolute Neutrophil Count 15.6 X10^3/uL (2.0-7.7); Basophil# 0.06 X10^3/uL; Basophil% 0.4 % (0-1); Hematocrit 37.1 % (37-47); Lymphocyte # 0.71 X10^3/ul (0.83-4.51); Lymphocyte % 4.2 % (19-41); Mean Corp Hgb Conc 32.3 g/dL (32-36); Mean Corpuscular Hgb 29.9 pg (27.0-32.0); Mean Corpuscular Volume 92.5 fL (81-99); Mean Platelet Vol. 10.9 fl (6.2-12.0); Monocyte# 0.37 X10^3/uL; Monocyte% 2.2 % (0-10); NRBC Flagged by Analyzer 0 % (0-5); Neutrophil # 15.62 X10^3/uL (2.7-7.7); Neutrophil % 92.2 % (47-70); Platelet Count 198 K/mm3 (150-450); RBC Distribution Width SD 44.4 fl (35.1-43.9); Red Blood Count 4.01 M/mm3 (4.2-5.4); White Blood Count 16.9 K/mm3 (4.4-11.0)
[2022-09-29] MEDS: Insulin Lispro 100 UNIT/ML INSULN.PEN SC ×3 (06:42→21:35)
[2022-09-29 06:56] LABS: Bedside Glucose 333 mg/dL (74-106)
[2022-09-29 07:00] LABS: Anion Gap 13 (5-15); BUN 19 mg/dL (7-18); BUN/Creat Ratio 23.6 RATIO (10-20); Calcium,Total 8.6 mg/dL (8.5-10.1); Chloride 107 mmol/L (98-107); Creatinine, Serum 0.81 mg/dL (0.55-1.02); EST Glomerular Filtration Rate 79 mL/min (>60); Est Glom Filt Rate - Afr Amer 95 mL/min (>60); Estimated Creatinine Clearance 57.03 ml/min; Glucose 361 mg/dL (74-106); Potassium 4.7 mmol/L (3.5-5.1); Sodium Level 135 mmol/L (136-145)
--- NOTE | 2022-09-29 07:41 | PN.SURG_ITS ---
Subjective Subjective Patient is not feeling well this morning because she says her glucose is elevated. She says the abdominal pain she was having yesterday is gone. She denies any nausea or vomiting overnight. Objective Data Objective Data Vital Signs: Vital Signs Temp Pulse Resp BP Pulse Ox O2 Del Method O2 Flow Rate 97.9 F 100 16 118/56 L 94 Room Air 2 09/29/22 04:02 09/29/22 04:02 09/29/22 04:02 09/29/22 04:02 09/29/22 07:30 09/29/22 07:30 09/29/22 00:04 Oxygen Flow Rate (L/min) 2 Oxygen Delivery Method Room Air Weight: 210 lb 12.191 oz Body Mass Index (BMI) 41.1 Intake & Output: Intake and Output for Last 24 Hours 09/27/22 09/28/22 09/29/22 23:59 23:59 23:59 Intake Total 0 / 0 39.25 / 39.25 Output Total 600 / 600 200 / 200 Balance 1450 / 1450 -160.75 / -160.75 Lab / Micro Data Result Diagrams: 09/29/22 06:14 09/29/22 06:14 Labs: Laboratory Results - last 24 hr 09/28/22 18:40: WBC 8.2, RBC 4.14 L, Hgb 12.2, Hct 36.5 L, MCV 88.2, MCH 29.5, MCHC 33.4, RDW Std Deviation 41.1, RDW Coeff of Frank 12.8, Plt Count 218, MPV 10.3, Immature Gran % (Auto) 0.500, Neut % (Auto) 69.9, Lymph % (Auto) 20.8, Wallace % (Auto) 6.8, Eos % (Auto) 1.3, Baso % (Auto) 0.7, Absolute Neuts (auto) 5.7, Absolute Lymphs (auto) 1.70, Nucleated RBC % 0 09/28/22 18:40: Sodium 139, Potassium 3.8, Chloride 105, Carbon Dioxide 22.0, Anion Gap 12, BUN 16, Creatinine 0.90, Estim Creat Clear Calc 61.71, Est GFR (MDRD) Af Amer 83, Est GFR (MDRD) Non-Af 69, BUN/Creatinine Ratio 17.7, Glucose 175 H, Calcium 9.0, Total Bilirubin 0.50, Direct Bilirubin 0.14, AST 12 L, ALT 20, Alkaline Phosphatase 90, Troponin I High Sens 4, Total Protein 7.3, Albumin 3.6, Globulin 3.7, Lipase 14 09/28/22 19:04: POC Glucose 174 H 09/28/22 23:15: POC Glucose 193 H 09/29/22 06:14: WBC 16.9 H, RBC 4.01 L, Hgb 12.0, Hct 37.1, MCV 92.5, MCH 29.9, MCHC 32.3, RDW Std Deviation 44.4 H, RDW Coeff of Frank 13.0, Plt Count 198, MPV 10.9, Immature Gran % (Auto) 1.000 H, Neut % (Auto) 92.2 H, Lymph % (Auto) 4.2 L , Wallace % (Auto) 2.2, Eos % (Auto) 0.0, Baso % (Auto) 0.4, Absolute Neuts (auto) 15.6 H, Absolute Lymphs (auto) 0.71 L, Nucleated RBC % 0 09/29/22 06:14: Sodium 135 L, Potassium 4.7, Chloride 107, Carbon Dioxide 15.0 L , Anion Gap 13, BUN 19 H, Creatinine 0.81, Estim Creat Clear Calc 57.03, Est GFR (MDRD) Af Amer 95, Est GFR (MDRD) Non-Af 79, BUN/Creatinine Ratio 23.6 H, Glucose 361 H, Calcium 8.6 09/29/22 06:37: POC Glucose 333 H Radiography Diagnostic Testing: Radiology Impression Abdomen/Pelvis CT 09/28/22 19:53 IMPRESSION: (NOT LISTED IN ORDER OF SIGNIFICANCE) Acute appendicitis. There is no evidence to suggest abscess formation. Other findings as above. Non standard communication findings protocol was initiated. Electronically Signed: Sawyer Aguillon MD at 20:56 EDT , ADDENDUM: 09/28/222108 IMPRESSION: (NOT LISTED IN ORDER OF SIGNIFICANCE) Acute appendicitis. There is no evidence to suggest abscess formation. Other findings as above. Non standard communication findings protocol was initiated. N.B. : The above Results were Read Back by Sawyer Aguillon MD to Scarlett Linn MD, and understanding confirmed on 09/28/2022 21:03:01 (ET). Electronically Signed: Sawyer Aguillon MD at 20:56 EDT Reading Location ID and State: [facility] / [place] , Service support , Assessment & Plan Assessment/Plan (1) Diabetes mellitus type I: QUALIFIERS: Diabetes mellitus complication status: with hypergly cemia Qualified Code(s): E10.65 - Type 1 diabetes mellitus with hyperglycemia (2) Acute appendicitis: QUALIFIERS: Acute appendicitis type: unspecified acute appendicitis type Qualified Code(s): K35.80 - Unspecified acute appendicitis PLAN: Plan The patient denies any abdominal pain that she was having yesterday. I will start her on clear liquid diet. Patient's glucose is significantly elevated and I had to remove her insulin pump for surgery yesterday. I have consulted the hospitalist to assist with glucose management. Rahat Mccormack MD Pager: [facility] [address] [place] [address], [address] [place] [address] Office:
--- NOTE | 2022-09-29 07:42 | NURSING ---
Primary RN Patrizia bedside verbalized OT at 334, Dr. Beebe sent text regarding this. IV Bolus initiated as ordered.
--- NOTE | 2022-09-29 07:42 | NURSING ---
received call from Dr. Beebe regarding pt's home insulin pump. This nurse into room to discuss insulin pump with patient, pt states insulin pump is here and off in closet. Pt states she does not know what the basal rate is on the insulin pump nor does she know how to check what she is suppose to be receiving through her insulin pump. Dr. Beebe informed. aware Dr. Beebe is putting orders in the computer and requesting OT be rechecked now. Primary RN Patrizia [facility] updated on these orders and requests.
[2022-09-29] MEDS: Lisinopril 5 MG Tablet PO (07:43)
[2022-09-29] MEDS: Pantoprazole Sodium 40 MG Tablet PO (07:43)
[2022-09-29] MEDS: Fluoxetine HCl 40 MG CAPSULE PO ×2 (07:43→21:35)
--- NOTE | 2022-09-29 07:44 | PN.HOSP_ITS ---
Reason for Visit Reason for Visit: Abdominal pain Subjective Subjective Mrs. Mckinney is a 56-year-old white female who presents emergency department 3 complaining of severe abdominal pain that started the day prior to presentation and has gradually gotten worse. She developed nausea and vomiting on the day of presentation. She denied fever chills and diarrhea. She has a history of type 1 diabetes and it appears that her hemoglobin A1c is well controlled with her last being 6.5. She does follow with endocrinology as an outpatient. Her last visit there was in July 2022. She wears an insulin pump at baseline. CT scan of the abdomen pelvis revealed acute appendicitis and the patient was given a dose of Zosyn and she was taken to the operating room last evening at which time a laparoscopic appendectomy was performed. Her insulin pump was removed at the time of surgery which was about 10:30 PM. She has not had an insulin pump in place and is only on sliding scale subcu insulin at this time. Her blood sugar was noted to be high this morning and we have been consulted for blood sugar management. Laboratory data this morning revealed a leukocytosis with a white count of 16.9 likely reactive. Otherwise her CBC was unremarkable. Her chemistry panel shows mild hyponatremia at 135. This is likely pseudohyponatremia as her blood sugars 361. Her serum bicarb was 15 and her anion gap is 13. Appears she is trending towards DKA but not severe at this time. We will go ahead and give her Lantus 20 units x 1 dose. Patient is unsure of what her basal rate is. We will also give her 15 units stat of subcu Humalog and 1 L of IV fluids. Repeat BMP will be performed at 930 to reevaluate. Objective Data Objective Data Vital Signs: Vital Signs Temp Pulse Resp BP Pulse Ox O2 Del Method O2 Flow Rate 97.9 F 100 16 118/56 L 94 Room Air 2 09/29/22 04:02 09/29/22 04:02 09/29/22 04:02 09/29/22 04:02 09/29/22 07:30 09/29/22 07:30 09/29/22 00:04 Oxygen Flow Rate (L/min) 2 Oxygen Delivery Method Room Air Weight: 95.6 kg Body Mass Index (BMI) 41.1 Intake & Output: Intake and Output for Last 24 Hours 09/27/22 09/28/22 09/29/22 23:59 23:59 23:59 Intake Total 2049 39.25 / 39.25 Output Total 600 / 600 200 / 200 Balance 1450 / 1450 -160.75 / -160.75 Lab / Micro Data Result Diagrams: 09/29/22 06:14 09/29/22 09:10 Labs: Laboratory Results - last 24 hr 09/28/22 18:40: WBC 8.2, RBC 4.14 L, Hgb 12.2, Hct 36.5 L, MCV 88.2, MCH 29.5, MCHC 33.4, RDW Std Deviation 41.1, RDW Coeff of Frank 12.8, Plt Count 218, MPV 10.3, Immature Gran % (Auto) 0.500, Neut % (Auto) 69.9, Lymph % (Auto) 20.8, [place] % (Auto) 6.8, Eos % (Auto) 1.3, Baso % (Auto) 0.7, Absolute Neuts (auto) 5.7, Absolute Lymphs (auto) 1.70, Nucleated RBC % 0 09/28/22 18:40: Sodium 139, Potassium 3.8, Chloride 105, Carbon Dioxide 22.0, Anion Gap 12, BUN 16, Creatinine 0.90, Estim Creat Clear Calc 61.71, Est GFR (MDRD) Af Amer 83, Est GFR (MDRD) Non-Af 69, BUN/Creatinine Ratio 17.7, Glucose 175 H, Calcium 9.0, Total Bilirubin 0.50, Direct Bilirubin 0.14, AST 12 L, ALT 20, Alkaline Phosphatase 90, Troponin I High Sens 4, Total Protein 7.3, Albumin 3.6, Globulin 3.7, Lipase 14 09/28/22 19:04: POC Glucose 174 H 09/28/22 23:15: POC Glucose 193 H 09/29/22 06:14: WBC 16.9 H, RBC 4.01 L, Hgb 12.0, Hct 37.1, MCV 92.5, MCH 29.9, MCHC 32.3, RDW Std Deviation 44.4 H, RDW Coeff of Frank 13.0, Plt Count 198, MPV 10.9, Immature Gran % (Auto) 1.000 H, Neut % (Auto) 92.2 H, Lymph % (Auto) 4.2 L , [place] % (Auto) 2.2, Eos % (Auto) 0.0, Baso % (Auto) 0.4, Absolute Neuts (auto) 15.6 H, Absolute Lymphs (auto) 0.71 L, Nucleated RBC % 0 09/29/22 06:14: Sodium 135 L, Potassium 4.7, Chloride 107, Carbon Dioxide 15.0 L , Anion Gap 13, BUN 19 H, Creatinine 0.81, Estim Creat Clear Calc 57.03, Est GFR (MDRD) Af Amer 95, Est GFR (MDRD) Non-Af 79, BUN/Creatinine Ratio 23.6 H, Glucose 361 H, Calcium 8.6 09/29/22 06:37: POC Glucose 333 H Radiography Diagnostic Testing: Radiology Impression Abdomen/Pelvis CT 09/28/22 19:53 IMPRESSION: (NOT LISTED IN ORDER OF SIGNIFICANCE) Acute appendicitis. There is no evidence to suggest abscess formation. Other findings as above. Non standard communication findings protocol was initiated. Electronically Signed: Sawyer Aguillon MD at 20:56 EDT , ADDENDUM: 09/28/222108 IMPRESSION: (NOT LISTED IN ORDER OF SIGNIFICANCE) Acute appendicitis. There is no evidence to suggest abscess formation. Other findings as above. Non standard communication findings protocol was initiated. N.B. : The above Results were Read Back by Sawyer Aguillon MD to Scarlett Linn MD, and understanding confirmed on 09/28/2022 21:03:01 (ET). Electronically Signed: Sawyer Aguillon MD at 20:56 EDT , Physical Exam Const alert, oriented x3, no apparent distress, healthy appearing and well nourished; Negative for average body habitus Constitutional Narrative: Morbidly obese, white female, sitting up in bed, appears comfortable and nontoxic, states she is feeling much better than she did this morning HEENT head/scalp atraumatic and moist oral mucous membranes HEENT Narrative: Mallampati 3, no thrush Head and Scalp: normocephalic Resp normal respiratory effort, no retractions, no use of accessory muscles and clear to auscultation bilaterally Auscultation: Negative for rales, rhonchi or wheezes Cardio regular rate, regular rhythm, S1 normal heart sound, S2 normal heart sound, no murmurs, no rub, no gallops and no clicks GI normal to inspection, nondistended, normoactive bowel sounds and soft to palpation GI Narrative: Mild tenderness around laparoscopic sites, postoperative Steri-Strips in place and are clean dry and intact, no drainage Extremity no clubbing, cyanosis or edema Extremity Narrative: 2+ pedal pulses Neuro oriented x3, moves all extremities and no focal motor deficits Speech: speech normal Psych affect normal Psych Narrative: Pleasant, appropriately interactive Assessment & Plan Assessment/Plan (1) Acute appendicitis: QUALIFIERS: Acute appendicitis type: unspecified acute appendic itis type Qualified Code(s): K35.80 - Unspecified acute appendicitis (2) Diabetes mellitus type I: QUALIFIERS: Diabetes mellitus complication status: with hyperglycemia Qualified Code(s): E10.65 - Type 1 diabetes mellitus with hyperglycemia (3) Hyperglycemia: (4) Metabolic acidosis: PLAN: Plan Acute appendicitis -Postop day 1 from laparoscopic appendectomy -Management per primary service -Patient is on clear liquid diet at this time DM-1 with acute hyperglycemia -This is related to lack of insulin and patient is trending towards DKA however does not appear to be severe at this time -IV fluid bolus with normal saline x1 -Stat subcu insulin Humalog 15 units with repeat blood sugar in 30 minutes -Lantus 20 units to be given x1 dose -Repeat BMP at 930. If no improvement or worsening will need transfer to the ICU for insulin drip -Patient is unclear what her basal rate is we will try to clarify with endocrinology once their office is open -Plan to replace pump at the time of discharge Metabolic acidosis -Mild -Serum bicarb 15 -Likely related to the above -Repeat lab work at 930 to reevaluate Diabetic neuropathy/diabetic retinopathy -Patient takes no chronic medication for this Hypertension -Continue enalapril Hypothyroidism -Continue levothyroxine GERD -Continue PPI Vitamin D deficiency -Continue cholecalciferol 5000 units daily History of diabetic foot wounds -No current issues Depression Continue fluoxetine Morbid obesity -BMI is 41.2 -Complicates treatment, prognosis, outcomes DVT prophylaxis -Per primary service -SCDs for now CODE STATUS -Full code Charges/Coding Visit Charges Inpatient E&M: 85549 Subs Hosp L2
--- NOTE | 2022-09-29 07:45 | NURSING ---
talked with Stefan housekeeping aid. clarified with him as well as policy regarding IVP insulin on medsurg. Updated Stefan that have a patient Dr. Beebe is attempting to prevent DKA. Dr. Beebe called and updated on policy of no IVP inuslin on medsurg unit. orders obtained to change to Subcut. Primary RN updated including on recheck of OT.
--- NOTE | 2022-09-29 08:04 | NURSING ---
left message for Dr. Diallo's nurse requesting information on insulin pump.
[2022-09-29] MEDS: Insulin Lispro 100 UNIT/ML INSULN.PEN 15 UNIT SC (08:12)
[2022-09-29] MEDS: Insulin Glargine-YFGN 100 UNIT/ML Pen 20 UNIT SC (08:48)
--- NOTE | 2022-09-29 08:55 | NURSING ---
Checked pt's blood sugar at [address] Beebe's order. Accucheck was 334 at this time. 15u insulin lispro x1 order was given at 0815. Per Dr Beebe, recheck blood sugar 30 min after giving lispro 15u. Accucheck at 0845 was 274 and 20u insulin glargine daily dose was given. Reported accucheck results to Dr Beebe. Will continue to monitor *Glucometer was not scanning pt's wristband, downtime override button was selected. Verified pt name and with pt
[2022-09-29 09:07] LABS: Bedside Glucose 274 mg/dL (74-106)
[2022-09-29 09:07] LABS: Bedside Glucose 334 mg/dL (74-106)
[2022-09-29 09:08] LABS: Bedside Glucose 293 mg/dL (74-106)
--- NOTE | 2022-09-29 09:34 | NURSING ---
talked with Dr. Diallo in her office requested information on insulin pump settings. results sent to dr. mclean including 0.8units/hr for total of 19units/24hrs. 1 unit for every 8 grams of carbs. correction factor 1 unit for every [address] Diallo also provided her cell phone number if needed passed on to Dr. Mclean.
[2022-09-29 09:42] LABS: Anion Gap 13 (5-15); BUN 20 mg/dL (7-18); Calcium,Total 8.2 mg/dL (8.5-10.1); Chloride 108 mmol/L (98-107); Creatinine, Serum 0.87 mg/dL (0.55-1.02); EST Glomerular Filtration Rate 72 mL/min (>60); Est Glom Filt Rate - Afr Amer 87 mL/min (>60); Glucose 282 mg/dL (74-106); Potassium 3.7 mmol/L (3.5-5.1); Sodium Level 137 mmol/L (136-145)
--- NOTE | 2022-09-29 11:40 | CASEMGMT ---
DEVON ANGLIN Discharge Vamp Liner: Face to Face with patient for initial transition planning/care coordination assessment.?DEVON ANGLIN introduced self and role at [facility], pt alert, oriented, voices understanding, and is agreeable to participating in assessment.? Care providers, pharmacy,?and demographics verified. ? Admitting Dx: acute appendicitis PCP: Ivette Specialists: (endocrinology) Preferred Pharmacy: [facility] Insurance: [employer] Prescription Benefit:?yes Living Will/HPOA: none, pt is interested in completing these documents. EVANGELINA Lui notified. LNOK: son Mj, mother Valerie Living Arrangements: Pt lives with her 24yo son Mj and his fiance in a two story home with first floor set up . Pt states she is independent with ADLs and IADLs. Transportation: Pt drives but her car currently is not working. Pt states her son is able to assist with transportation. DME: glucometer and supplies, insulin pump and supplies. SNF: none HHC: previously from [facility] HH s/p foot surgery ? Plan: Pt states she plans to return home at discharge with the support of her family and denies any discharge needs. States her son's navdeep is bringing in her insulin pump supplies so she can reapply it at discharge. Will continue to monitor and assist with DC needs as identified. Tammie Ramirez RN CM
[2022-09-29 11:42] LABS: Bedside Glucose 163 mg/dL (74-106)
--- NOTE | 2022-09-29 12:28 | PCM.DC.SUM ---
Providers Date of Admission: 09/28/22 Primary Care Physician: Dr. Arjun Steele MD Consultations 09/29/22 07:35 Consult: Hospitalist Routine Consulting Provider: Stacy Beebe Reason for Consult: glucose management EMERGENT Consult: No MD Notified: Yes Date Notified: 09/29/22 Time Notified: 07:35 Method of Notification: Verbal Reason For Visit: ACUTE APPENDICITIS Diagnosis Discharge Diagnosis (1) Acute appendicitis: Status: Acute Code(s): K35.80 - Unspecified acute appendicitis Qualifiers: Acute appendicitis type: unspecified acute appendicitis type Qualified Code(s): K35.80 - Unspecified acute appendicitis (2) Diabetes mellitus type I: Status: Chronic Qualifiers: Diabetes mellitus complication status: with hyperglycemia Qualified Code(s): E10.65 - Type 1 diabetes mellitus with hyperglycemia (3) Hyperglycemia: Status: Acute Code(s): R73.9 - Hyperglycemia, unspecified (4) Metabolic acidosis: Status: Acute Code(s): E87.20 - Acidosis, unspecified Plan The patient denies any abdominal pain that she was having yesterday. I will start her on clear liquid diet. Patient's glucose is significantly elevated and I had to remove her insulin pump for surgery yesterday. I have consulted the hospitalist to assist with glucose management. Rahat Mccormack MD Pager: [facility] [address] [place] [address], [address] [place] [address] Office: Medications at Discharge Home Medications cholecalciferol (vitamin D3) 125 mcg (5,000 unit) capsule 5,000 unit PO QDAY 03/15/17 insulin pump syringe 1.8 mL 01/23/18 blood-glucose meter,continuous (Dexcom G6 Reinforcing Steel Worker Wire Mesh) #1 ea 11/26/20 blood-glucose sensor (Dexcom G6 Sensor device) #9 ea 01/26/22 blood-glucose transmitter (Dexcom G6 Transmitter device) #1 ea 01/26/22 omeprazole 40 mg capsule,delayed release 40 mg PO DAILY #90 caps 02/09/22 simvastatin 20 mg tablet See Rx Instructions .Route .COMPLEX #90 tabs 05/02/22 insulin lispro 100 unit/mL subcutaneous solution (Humalog U-100 Insulin) 100 unit subcut .continuous #90 mL 06/29/22 enalapril maleate 5 mg tablet See Rx Instructions .Route .COMPLEX #90 tabs 07/20/22 levothyroxine 125 mcg tablet 125 mcg PO DAILY #90 tabs 07/20/22 fluoxetine 40 mg capsule 40 mg PO BID depression, hot flashes #180 caps 08/18/22 insulin pump cart,cont inf,BT (Omnipod Dash Pods (Gen 4) subcutaneous cartridge) #30 ea 09/13/22 acetaminophen 325 mg tablet 650 mg PO Q4H PRN PRN Pain 1-10/Fever #0 tabs 09/29/22 oxycodone-acetaminophen 5 mg-325 mg tablet 1 tab PO Q4H PRN PRN Pain Score 6-10 5 days #20 tabs 09/29/22 Hospital Course Operations appendectomy Summary of Care Provided Hospital Course: Patient was admitted with abdominal pain and had laparoscopic appendectomy. The following day she said the pain improved but she was feeling unwell due to her glucose. I consulted the hospitalist for improvement in management of glucose control. I checked back on the patient that afternoon and the patient had tolerated clears and was wanting regular foods her diet was advanced. Once tolerating regular diet she was discharged home. Weight / BMI Weight Weight: 210 lb 12.191 oz Body Mass Index (BMI) 41.1 ABG / Lab / Microbiology Data Result Diagrams: 09/29/22 06:14 09/29/22 09:10 Laboratory: Laboratory Results - last 24 hr 09/28/22 18:40: WBC 8.2, RBC 4.14 L, Hgb 12.2, Hct 36.5 L, MCV 88.2, MCH 29.5, MCHC 33.4, RDW Std Deviation 41.1, RDW Coeff of Frank 12.8, Plt Count 218, MPV 10.3, Immature Gran % (Auto) 0.500, Neut % (Auto) 69.9, Lymph % (Auto) 20.8, Gilmer % (Auto) 6.8, Eos % (Auto) 1.3, Baso % (Auto) 0.7, Absolute Neuts (auto) 5.7, Absolute Lymphs (auto) 1.70, Nucleated RBC % 0 09/28/22 18:40: Sodium 139, Potassium 3.8, Chloride 105, Carbon Dioxide 22.0, Anion Gap 12, BUN 16, Creatinine 0.90, Estim Creat Clear Calc 61.71, Est GFR (MDRD) Af Amer 83, Est GFR (MDRD) Non-Af 69, BUN/Creatinine Ratio 17.7, Glucose 175 H, Calcium 9.0, Total Bilirubin 0.50, Direct Bilirubin 0.14, AST 12 L, ALT 20, Alkaline Phosphatase 90, Troponin I High Sens 4, Total Protein 7.3, Albumin 3.6, Globulin 3.7, Lipase 14 09/28/22 19:04: POC Glucose 174 H 09/28/22 23:15: POC Glucose 193 H 09/29/22 02:19: POC Glucose 293 H 09/29/22 06:14: WBC 16.9 H, RBC 4.01 L, Hgb 12.0, Hct 37.1, MCV 92.5, MCH 29.9, MCHC 32.3, RDW Std Deviation 44.4 H, RDW Coeff of Frank 13.0, Plt Count 198, MPV 10.9, Immature Gran % (Auto) 1.000 H, Neut % (Auto) 92.2 H, Lymph % (Auto) 4.2 L, Gilmer % (Auto) 2.2, Eos % (Auto) 0.0, Baso % (Auto) 0.4, Absolute Neuts (auto) 15.6 H, Absolute Lymphs (auto) 0.71 L, Nucleated RBC % 0 09/29/22 06:14: Sodium 135 L, Potassium 4.7, Chloride 107, Carbon Dioxide 15.0 L, Anion Gap 13, BUN 19 H, Creatinine 0.81, Estim Creat Clear Calc 57.03, Est GFR (MDRD) Af Amer 95, Est GFR (MDRD) Non-Af 79, BUN/Creatinine Ratio 23.6 H, Glucose 361 H, Calcium 8.6 09/29/22 06:37: POC Glucose 333 H 09/29/22 07:42: POC Glucose 334 H 09/29/22 08:46: POC Glucose 274 H 09/29/22 09:10: Sodium 137, Potassium 3.7, Chloride 108 H, Carbon Dioxide 16.0 L, Anion Gap 13, BUN 20 H, Creatinine 0.87, Estim Creat Clear Calc 53.10, Est GFR (MDRD) Af Amer 87, Est GFR (MDRD) Non-Af 72, BUN/Creatinine Ratio 23.0 H, Glucose 282 H, Calcium 8.2 L 09/29/22 11:07: POC Glucose 163 H Radiography Diagnostic Testing: Radiology Impression Abdomen/Pelvis CT 09/28/22 19:53 IMPRESSION: (NOT LISTED IN ORDER OF SIGNIFICANCE) Acute appendicitis. There is no evidence to suggest abscess formation. Other findings as above. Non standard communication findings protocol was initiated. Electronically Signed: Sawyer Aguillon MD at 20:56 EDT , ADDENDUM: 09/28/222108 IMPRESSION: (NOT LISTED IN ORDER OF SIGNIFICANCE) Acute appendicitis. There is no evidence to suggest abscess formation. Other findings as above. Non standard communication findings protocol was initiated. N.B. : The above Results were Read Back by Sawyer Aguillon MD to Scarlett Linn MD, and understanding confirmed on 09/28/2022 21:03:01 (ET). Electronically Signed: Sawyer Aguillon MD at 20:56 EDT , D/C Instructions Discharge Diet: Light diet - advance as tolerated Discharge Activity: May Not Drive (for 2-3 days or while taking narcotic pain medications) May shower in (days): 1 Call your doctor if your incision/area has: Continuous Slow Oozing, Sudden Increased Bleeding, Increased Pain/ Swelling, Increased Redness and Foul Smelling Discharge Call your doctor if you observe: Fever of 101 or Higher Suture Line Care: Avoid Pulling/Pushing and Avoid Pinching/Bending Remove Dressing in: 2 days Cleanse incision/area with: Soap & Water Additional Instructions: Keep dressing clean and dry. Change or remove dressing in 2 days. Leave steri strips for 1 week. May protect with a gauze bandaid. Please Follow Up With: Rahat Mccormack MD When: Please call to schedule 2 week follow up appointment at [phone] Meaningful Use Info Meaningful Use Diagnoses (Choose all that apply): None applicable Discharge Plan Admission Admit Date/Time: 09/28/22 23:02 Attending Provider: Rahat Mccormack Primary Care Provider: Arjun Steele Consulting Providers: Stacy Beebe Discharge Orders/Prescriptions Prescriptions: New acetaminophen 325 mg Tablet 650 mg PO Q4H PRN PRN (Reason: Pain 1-10/Fever) Qty: 0 0RF oxycodone-acetaminophen 5-325 mg Tablet 1 tab PO Q4H PRN PRN (Reason: Pain Score 6-10) 5 Days Qty: 20 0RF Continued cholecalciferol (vitamin D3) 5,000 unit capsule 5,000 unit PO QDAY (DME) Dexcom G6 Sensor Device See Rx Instructions .ROUTE .MEDSUPPLY Qty: 9 3RF Rx Instructions: change every 10 days (DME) Dexcom G6 Transmitter Device See Rx Instructions .ROUTE .MEDSUPPLY Qty: 1 3RF Rx Instructions: As directed omeprazole 40 mg capsule,delayed release(DR/EC) 40 mg PO DAILY Qty: 90 3RF fluoxetine 40 mg capsule 40 mg PO BID Qty: 180 3RF (DME) insulin pump syringe 1 EACH misc 1 ea MC CONT (DME) Dexcom G6 Reinforcing Steel Worker Wire Mesh Misc See Rx Instructions .ROUTE .MEDSUPPLY Qty: 1 0RF Rx Instructions: As directed simvastatin 20 mg tablet See Rx Instructions .ROUTE .COMPLEX Qty: 90 3RF Dose Instruction: TAKE 1 TABLET BY MOUTH AT BEDTIME Rx Instructions: TAKE 1 TABLET BY MOUTH AT BEDTIME insulin lispro [Humalog U-100 Insulin] 100 unit/mL solution 100 unit SC .continuous Qty: 90 1RF Rx Instructions: viaInsulin Pump levothyroxine 125 mcg tablet 125 mcg PO DAILY Qty: 90 1RF enalapril maleate 5 mg tablet See Rx Instructions .ROUTE .COMPLEX Qty: 90 1RF Dose Instruction: TAKE 1 TABLET BY MOUTH EVERY DAY Rx Instructions: TAKE 1 TABLET BY MOUTH EVERY DAY (DME) Omnipod Dash Pods (Gen 4) Cartridge See Rx Instructions .Route Qty: 30 1RF Rx Instructions: change every 3 days Referrals / Follow Up: Arjun Steele MD [Primary Care Provider] - Disposition Disposition (needs filled in before D/C Order can be placed): Home, Self Care
[2022-09-29 15:25] LABS: Anion Gap 6 (5-15); BUN 23 mg/dL (7-18); BUN/Creat Ratio 22.5 RATIO (10-20); Calcium,Total 8.6 mg/dL (8.5-10.1); Chloride 109 mmol/L (98-107); Creatinine, Serum 1.02 mg/dL (0.55-1.02); EST Glomerular Filtration Rate 60 mL/min (>60); Est Glom Filt Rate - Afr Amer 72 mL/min (>60); Estimated Creatinine Clearance 45.29 ml/min; Glucose 139 mg/dL (74-106); Potassium 4.4 mmol/L (3.5-5.1); Sodium Level 138 mmol/L (136-145)
--- NOTE | 2022-09-29 15:54 | CASEMGMT ---
Social Work Received referral to complete advanced directives for patient. SW present to room, introduced self and role. Confirmed wishes to complete AD. Assisted in completing. Pt named mother as primary POA and son as secondary POA. SW updated pt's contacts in chart. Original and copies provided to pt. Copy placed on chart. No other needs identified. Kaci Monique, PATHOLOGY TECHNOLOGIST MANAGER METROLOGY
[2022-09-29 16:59] LABS: Bedside Glucose 115 mg/dL (74-106)
[2022-09-29 22:16] LABS: Bedside Glucose 177 mg/dL (74-106)
[2022-09-30] VITALS (7 sets, daily range): BP systolic 127–158; BP diastolic 50–67; PULSE 86–94; RESP 18; TEMP 36.7–37.6; O2SAT 76–99
[2022-09-30] MEDS: Insulin Lispro 100 UNIT/ML INSULN.PEN SC (06:30)
[2022-09-30] MEDS: Levothyroxine 125 MCG Tablet PO (06:30)
[2022-09-30 06:37] LABS: Anion Gap 8 (5-15); BUN 20 mg/dL (7-18); BUN/Creat Ratio 26.8 RATIO (10-20); Calcium,Total 8.4 mg/dL (8.5-10.1); Chloride 110 mmol/L (98-107); Creatinine, Serum 0.75 mg/dL (0.55-1.02); EST Glomerular Filtration Rate 86 mL/min (>60); Est Glom Filt Rate - Afr Amer 104 mL/min (>60); Estimated Creatinine Clearance 61.59 ml/min; Glucose 198 mg/dL (74-106); Potassium 3.9 mmol/L (3.5-5.1); Sodium Level 138 mmol/L (136-145)
[2022-09-30 06:52] LABS: Bedside Glucose 200 mg/dL (74-106)
[2022-09-30] MEDS: Pantoprazole Sodium 40 MG Tablet PO (08:36)
[2022-09-30] MEDS: Lisinopril 5 MG Tablet PO (08:36)
[2022-09-30] MEDS: Fluoxetine HCl 40 MG CAPSULE PO (08:36)
--- NOTE | 2022-09-30 10:40 | PN.HOSP_ITS ---
Reason for Visit Reason for Visit: Abdominal pain Subjective Subjective No issues overnight. Labs look good this morning. Patient anxious to go home. Awaiting Dr. Mccormack for discharge. Pump was placed this morning Objective Data Objective Data Vital Signs: Vital Signs Temp Pulse Resp BP Pulse Ox O2 Del Method O2 Flow Rate 98.2 F 92 18 154/62 H 98 Room Air 2 09/30/22 08:40 09/30/22 08:40 09/30/22 08:40 09/30/22 08:40 09/30/22 08:40 09/30/22 08:40 09/30/22 05:17 Oxygen Flow Rate (L/min) 2 Oxygen Delivery Method Room Air Weight: 95.6 kg Body Mass Index (BMI) 41.1 Intake & Output: Intake and Output for Last 24 Hours 09/28/22 09/29/22 09/30/22 23:59 23:59 23:59 Intake Total 2050 / 2050 1494.25 / 1494.25 Output Total 600 / 600 200 / 200 Balance 1450 / 1450 1294.25 / 1294.25 Lab / Micro Data Result Diagrams: 09/29/22 06:14 09/30/22 06:00 Labs: Laboratory Results - last 24 hr 09/29/22 11:07: POC Glucose 163 H 09/29/22 14:37: Sodium 138, Potassium 4.4, Chloride 109 H, Carbon Dioxide 23.0, Anion Gap 6, BUN 23 H, Creatinine 1.02, Estim Creat Clear Calc 45.29, Est GFR (MDRD) Af Amer 72, Est GFR (MDRD) Non-Af 60, BUN/Creatinine Ratio 22.5 H, Glucose 139 H, Calcium 8.6 09/29/22 16:36: POC Glucose 115 H 09/29/22 21:33: POC Glucose 177 H 09/30/22 06:00: Sodium 138, Potassium 3.9, Chloride 110 H, Carbon Dioxide 20.0 L , Anion Gap 8, BUN 20 H, Creatinine 0.75, Estim Creat Clear Calc 61.59, Est GFR (MDRD) Af Amer 104, Est GFR (MDRD) Non-Af 86, BUN/Creatinine Ratio 26.8 H, Glucose 198 H, Calcium 8.4 L 09/30/22 06:28: POC Glucose 200 H Physical Exam Const alert, oriented x3, no apparent distress, healthy appearing and well nourished; Negative for average body habitus Constitutional Narrative: Morbidly obese, middle-aged, white female, sitting up in bed, watching t elevision, appears comfortable and nontoxic, states that she placed her pump on this morning HEENT head/scalp atraumatic and moist oral mucous membranes Head and Scalp: normocephalic GI normal to inspection, nondistended, normoactive bowel sounds and soft to palpation GI Narrative: Mild tenderness at laparoscopic sites, dressings are clean dry and intact Neuro oriented x3, moves all extremities and no focal motor deficits Speech: speech normal Psych affect normal Psych Narrative: Pleasant, appropriately interactive Assessment & Plan Assessment/Plan (1) Metabolic acidosis: (2) Hyperglycemia: (3) Acute appendicitis: QUALIFIERS: Acute appendicitis type: unspecified acute appendicitis type Qualified Code(s): K35.80 - Unspecified acute appendicitis (4) Diabetes mellitus type I: QUALIFIERS: Diabetes mellitus complication status: with hyperglycemia Qualified Code(s): E10.65 - Type 1 diabetes mellitus with hyperglycemia PLAN: Plan Acute appendicitis -Postop day 2 laparoscopic appendectomy -Patient doing well -Management per primary service -Rating regular diet DM-1 with acute hyperglycemia -Acute hyperglycemia has resolved -Baseline hemoglobin A1c is 6.5 -Patient has replaced her pump -Okay for discharge Metabolic acidosis -Resolved Diabetic neuropathy/diabetic retinopathy -Patient takes no chronic medication for this Hypertension -Continue enalapril Hypothyroidism -Continue levothyroxine GERD -Continue PPI Vitamin D deficiency -Continue cholecalciferol 5000 units daily History of diabetic foot wounds -No current issues Depression Continue fluoxetine Morbid obesity -BMI is 41.2 -Complicates treatment, prognosis, outcomes DVT prophylaxis -Per primary service -SCDs for now CODE STATUS -Full code Charges/Coding Visit Charges Inpatient E&M: 35471 Subs Hosp L1
--- NOTE | 2022-09-30 11:22 | PN.SURG_ITS ---
Subjective Subjective Patient is tolerating diet, denies any abdominal pain other than at the incision which is controlled. Patient is ready go home. Objective Data Objective Data Vital Signs: Vital Signs Temp Pulse Resp BP Pulse Ox O2 Del Method O2 Flow Rate 98.2 F 92 18 154/62 H 98 Room Air 2 09/30/22 08:40 09/30/22 08:40 09/30/22 08:40 09/30/22 08:40 09/30/22 08:40 09/30/22 08:40 09/30/22 05:17 Oxygen Flow Rate (L/min) 2 Oxygen Delivery Method Room Air Weight: 210 lb 12.191 oz Body Mass Index (BMI) 41.1 Intake & Output: Intake and Output for Last 24 Hours 09/28/22 09/29/22 09/30/22 23:59 23:59 23:59 Intake Total 2050 / 2050 1494.25 / 1494.25 Output Total 600 / 600 200 / 200 Balance 1450 / 1450 1294.25 / 1294.25 Lab / Micro Data Result Diagrams: 09/29/22 06:14 09/30/22 06:00 Labs: Laboratory Results - last 24 hr 09/29/22 11:07: POC Glucose 163 H 09/29/22 14:37: Sodium 138, Potassium 4.4, Chloride 109 H, Carbon Dioxide 23.0, Anion Gap 6, BUN 23 H, Creatinine 1.02, Estim Creat Clear Calc 45.29, Est GFR (MDRD) Af Amer 72, Est GFR (MDRD) Non-Af 60, BUN/Creatinine Ratio 22.5 H, Glucose 139 H, Calcium 8.6 09/29/22 16:36: POC Glucose 115 H 09/29/22 21:33: POC Glucose 177 H 09/30/22 06:00: Sodium 138, Potassium 3.9, Chloride 110 H, Carbon Dioxide 20.0 L , Anion Gap 8, BUN 20 H, Creatinine 0.75, Estim Creat Clear Calc 61.59, Est GFR (MDRD) Af Amer 104, Est GFR (MDRD) Non-Af 86, BUN/Creatinine Ratio 26.8 H, Glucose 198 H, Calcium 8.4 L 09/30/22 06:28: POC Glucose 200 H Physical Exam Resp normal respiratory effort Cardio regular rate GI GI Narrative: Abdomen: Soft, nondistended, tender near incision's dressed clean dry and intact, no peritoneal signs Assessment & Plan Assessment/Plan (1) S/P laparoscopic appendectomy: (2) Acute appendicitis: QUALIFIERS: Acute appendicitis type: unspecified acute appendicitis type Qualified Code(s): K35.80 - Unspecified acute appendicitis (3) Diabetes mellitus type I: QUALIFIERS: Diabetes mellitus complication status: with hyperglycemia Qualified Code(s): E10.65 - Type 1 diabetes mellitus with hyperglycemia PLAN: Plan Patient is tolerating diet. Incision are healing well clean dry and intact. Patient will follow-up with Dr. Mccormack in 1 to 2 weeks in office. Hanane Werner M.D. Pager: [phone] [facility] [address] [place] [address], [address] [place] [address] Office: [phone]
== END 2022-09-30 11:25 | disposition home or self-care (01) | DRG 234 ==
LOC: ED 21:16 → SDC 21:36 → MS3 23:10
PROVIDERS: Internal Medicine; Admitting Provider Surgery; Emergency Provider Emergency Medicine; PCP Internal Medicine; Referring Provider Surgery; Visit Provider Surgery
PROC: 0DTJ4ZZ Resection of Appendix, Percutaneous Endoscopic Approach (ICD-10-PCS; CPT 44970; principal; 2022-09-28 22:15)
DX: K35.80 Unspecified acute appendicitis (principal); E10.319 Type 1 diabetes mellitus with unspecified diabetic retinopathy without macular edema; E10.42 Type 1 diabetes mellitus with diabetic polyneuropathy; E10.51 Type 1 diabetes mellitus with diabetic peripheral angiopathy without gangrene; Z79.4 Long term (current) use of insulin; E66.01 Morbid (severe) obesity due to excess calories; Z68.41 Body mass index [BMI] 40.0-44.9, adult; E10.65 Type 1 diabetes mellitus with hyperglycemia; E78.5 Hyperlipidemia, unspecified; E55.9 Vitamin D deficiency, unspecified; E03.9 Hypothyroidism, unspecified; E87.1 Hypo-osmolality and hyponatremia; I10 Essential (primary) hypertension; K21.9 Gastro-esophageal reflux disease without esophagitis; E87.20 Acidosis, unspecified
CPT/HCPCS: 36415; 74177; 80048; 80076; 82962; 83690; 84484; 85025; 88304; 93005; 99285; J7030; J7040; J7120; Q9967; A4216; C1760; J2405

== ENCOUNTER → 2022-10-18 | Outpatient (CLI) | payer MEDICAID, SELFPAY ==
--- NOTE | 2022-10-18 10:58 | US_ITS ---
INDICATION: right upper quadrant pain COMPARISON: None. FINDINGS: 87 grayscale ultrasound images of the right upper quadrant. PORTAL VEIN: Main portal vein is patent with appropriate directional flow. AORTA/IVC: Not well visualized. BILIARY SYSTEM: Common bile duct measures 0.3 cm in diameter. GALLBLADDER:? No gallbladder filling defects. Gallbladder wall thickness of 0.14 cm. No sonographic Schulz sign. No pericholecystic fluid. LIVER: Unremarkable hepatic parenchyma. PANCREAS: Visualized portions of the pancreas are unremarkable. KIDNEY: Right kidney is without shadowing nephrolith or hydronephrosis. No significant free fluid. US/Gallbladder IMPRESSION: Unremarkable right quadrant ultrasound. Electronically Signed: Rahat Garcia MD at 6:09 EDT ,
== END | disposition home or self-care (01) ==
LOC: US 10:58
PROVIDERS: PCP Internal Medicine; Referring Provider Surgery; Visit Provider Surgery
DX: R10.11 Right upper quadrant pain (principal)
CPT/HCPCS: 76705

== ENCOUNTER → 2022-11-09 | Outpatient (CLI) | payer MEDICAID, SELFPAY ==
[2022-11-09 11:19] LABS: T4 Free Direct 1.59 ng/dL (0.76-1.46); Thyroid Stim Hormone (TSH) 1.18 uIU/mL (0.358-3.74)
== END | disposition home or self-care (01) ==
PROVIDERS: PCP Internal Medicine; Referring Provider Nurse Practitioner Family; Visit Provider Nurse Practitioner Family
DX: E03.9 Hypothyroidism, unspecified (principal)
CPT/HCPCS: 36415; 84439; 84443

== ENCOUNTER → 2022-11-21 | Outpatient (CLI) | payer MEDICAID, SELFPAY ==
[2022-11-21 13:19] LABS: Microalbumin,Random Urine 12.5 mg/L (NO RANGE EST.); Microalbumin:Creatinine Ratio 7.1 mg/g CRE (<30 mg/g CRE)
== END | disposition home or self-care (01) ==
LOC: LABSPEC 09:58
PROVIDERS: PCP Internal Medicine; Referring Provider Internal Medicine Endocrinology, Diabetes & Metabolism; Visit Provider Internal Medicine Endocrinology, Diabetes & Metabolism
DX: Z96.41 Presence of insulin pump (external) (internal) (principal); I10 Essential (primary) hypertension; E03.9 Hypothyroidism, unspecified; E78.5 Hyperlipidemia, unspecified
CPT/HCPCS: 82043; 82570

== ENCOUNTER → 2022-12-13 | Outpatient (CLI) | payer MEDICAID, SELFPAY | END | disposition home or self-care (01) | LOC: LABSPEC 12:58 | PROVIDERS: PCP Internal Medicine; Referring Provider Podiatrist; Visit Provider Podiatrist | DX: L97.522 Non-pressure chronic ulcer of other part of left foot with fat layer exposed (principal) | CPT/HCPCS: 87070; 87075; 87077; 87186; 87205 ==

== ENCOUNTER 2023-03-08 09:15 | Outpatient (RCR) | payer MEDICAID, SELFPAY ==
[2023-03-01 14:10] VITALS: BP 147/82; PULSE 87; RESP 18; TEMP 36.4; BMI 35.6
--- NOTE | 2023-03-01 15:16 | PCM.WC.HP ---
History of Present Illness Date of Service: 03/01/23 Chief Complaint: Full-thickness ulceration plantar left TMA stump History of Wound: Ms. Mckinney is a 57-year-old diabetic female presenting to the wound care center today for second evaluation for the full-thickness ulceration to the plantar aspect of the left TMA stump. She is a patient of Dr. Barnes who has been doing an office excisional debridements without healing of the wound. She denies of any infection or drainage at this time. The patient would like to get amniotic skin graft substitutes while in the wound care center. She admits that this ulceration comes and goes about every 6 months. She denies trauma. Denies constitutional symptoms. No other pedal complaints at this time. Progress of Wound: Ms. Mckinney is a 57-year-old diabetic female presenting to wound care center today for follow-up and evaluation as well as second opinion to the full-thickness ulceration of the plantar aspect of left TMA stump. Patient would like to get skin graft substitute to help her ulceration heal. She admits that the ulceration reoccurs approximately every 6 months. She does admit to elevated blood glucose above 200 mg/dL. She knows that she should be under 150 mg/dL as she knows it inhibits her healing. Denies trauma. Denies constitutional symptoms. No other pedal complaints at this time. FORMERLY [facility] Medical History Acute hematogenous osteomyelitis Anxiety and depression bilat eye surgery Breast cancer screening Charcot's joint of left foot Diabetes type 1, controlled Diabetic foot infection Dysmenorrhea great toe fusion Health care maintenance History of endometrial biopsy Hyperlipidemia Hyperparathyroidism Hypothyroidism Insomnia Needs flu shot nonhealing plantar l foot wound novasure Obesity open wound of toes Peripheral neuropathy Peripheral vascular disease of lower extremity PVD (peripheral vascular disease) Skin picking habit Home Medications cholecalciferol (vitamin D3) 125 mcg (5,000 unit) capsule 5,000 unit PO QDAY 03/15/17 [History Last Taken Unknown] insulin pump syringe 1.8 mL 01/23/18 [History Last Taken Unknown] blood-glucose meter,continuous (Dexcom G6 Event Marketing Coordinator) #1 ea 11/26/20 [Rx Last Taken Unknown] omeprazole 40 mg capsule,delayed release 40 mg PO DAILY #90 caps 02/09/22 [Rx Last Taken Unknown] simvastatin 20 mg tablet See Rx Instructions .Route .COMPLEX #90 tabs 05/02/22 [Rx Last Taken Unknown] acetaminophen 325 mg tablet 650 mg (2 x 325 mg) PO Q4H PRN PRN Pain 1-10/Fever #0 tabs 09/29/22 [Rx Last Taken Unknown] oxycodone-acetaminophen 5 mg-325 mg tablet 1 tab PO Q4H PRN PRN Pain Score 6-10 5 days #20 tabs 09/29/22 [Rx Last Taken Unknown] fluoxetine 40 mg capsule 40 mg PO BID depression, hot flashes #180 caps 11/14/22 [Rx Last Taken Unknown] blood-glucose sensor (Dexcom G6 Sensor device) #9 ea 11/15/22 [Rx Last Taken Unknown] blood-glucose transmitter (Dexcom G6 Transmitter device) #1 ea 11/15/22 [Rx Last Taken Unknown] insulin lispro 100 unit/mL subcutaneous solution (Humalog U-100 Insulin) 100 unit subcut .continuous #90 mL 11/15/22 [Rx Last Taken Unknown] insulin pump cartridge,automated dose,BT with controller subcutaneous (Omnipod 5 G6 Intro Kit (Gen 5) subcutaneous cartridge with controller) #1 ea 11/15/22 [Rx Last Taken Unknown] hydroxyzine HCl 25 mg tablet See Rx Instructions .Route .COMPLEX #120 tabs 12/05/22 [Rx Last Taken Unknown] enalapril maleate 5 mg tablet See Rx Instructions .Route .COMPLEX #90 tabs 12/15/22 [Rx Last Taken Unknown] levothyroxine 125 mcg tablet 125 mcg PO DAILY #90 tabs 12/15/22 [Rx Last Taken Unknown] trazodone 50 mg tablet See Rx Instructions .Route .COMPLEX #90 tabs 12/20/22 [Rx Last Taken Unknown] insulin pump cart,cont inf,BT (Omnipod Dash Pods (Gen 4) subcutaneous cartridge) #30 ea 02/27/23 [Rx Last Taken Unknown] Allergy/AdvReac Type Severity Reaction Status Date / Time codeine AdvReac Vomiting Verified 11/21/22 09:30 Family History Mother Diabetes Father Diabetes Grandfather Diabetes Grandmother Diabetes Surgical History History of tonsillectomy Hx of adenoidectomy Hx of section Hx of tubal ligation S/P foot surgery, left S/P laparoscopic appendectomy S/P transmetatarsal amputation of foot Status post bilateral foot surgery Social History Smoking Status: Never smoker second hand exposure: No alcohol intake: current substance use type: does not use caffeine: Yes Vital Signs Vital Signs Vital Signs: 03/01/23 14:10 Temperature 97.5 F L Temperature Source Temporal Pulse Rate 87 Respiratory Rate 18 Blood Pressure 147/82 H Blood Pressure Mean 103 Blood Pressure Source Monitor Blood Pressure Position Semi-Fowlers Blood Pressure Location Left Arm Weight Weight: 88.451 kg Body Mass Index (BMI) 35.6 Physical Exam Narrative Vascular: DP and PT pulses are palpable. CFT is brisk to the TMA stump to the left lower extremity. Skin temperature gradient warm to warm from proximal ankle to distal digits. No evidence of increased focal warmth. No erythema or proximal streaking. Neurological: Light touch intact. Patient does not respond to painful stimuli. Protective sensation is absent. Dermatological: Full-thickness ulceration appreciated to the plantar left TMA stump measuring 1.3 x 1.4 x 0.3 cm. No erythema or proximal streaking. No sign of infection. Excisional debridement down to and including subcutaneous tissue with a #15 blade to the left TMA stump ulceration without incident. Predebridement measurement is 1.0 x 1.2 x 0.1 cm. Postdebridement measurement is 1.3 x 1.4 x 0.3 cm. Musculoskeletal: No pain to palpation of full-thickness ulceration to the left TMA stump. No pain with calf pressure. Debridement Note Debridement Note Debridement Free Text: Excisional debridement down to and including subcutaneous tissue with a #15 blade to the left TMA stump ulceration without incident. Predebridement measurement is 1.0 x 1.2 x 0.1 cm. Postdebridement measurement is 1.3 x 1.4 x 0.3 cm. Post-Debridement Measurements and Additional Note: Post-Debridement Measurements/Treatment CANDIDO - Nurse 1 - General Ulcer Assessment Start: 03/01/23 14:08 Freq: Status: Active Protocol: VENUS Activity Type Activity Date Activity User E-sign Co-sign Detail Recorded Client Recorded Date Recorded By Document 03/01/23 14:10 RB Desktop 03/01/23 14:36 RB 03/01/23 14:10 WC - Today's Visit Information Type of service Initial Visit Arrival Mode Ambulatory Transfer Assistance None Patient Identification Verified (Name & Yes ) Patient Requires Transmission-Based No Precautions Finger Stick Blood Sugar(mg/dl) (if 133 indicated): Blood Sugar Stated by Patient Height and Weight Height 5 ft 2 in Weight 88.451 kg Weight in Pounds 195.0 lbs Body Mass Index (BMI) 35.6 BMI Classification Obese BSA - Justin 1.89 Vital Signs Temperature (97.8 F-99.1 F) 97.5 F L Temperature Source Temporal Pulse Rate (60-100) 87 Pulse Location Monitor Respiratory Rate (12-18) 18 Respiratory rate source Observation Blood Pressure (90/60-120/80) 147/82 H Blood Pressure Mean 103 Source Monitor Position Semi-Fowlers Blood Pressure Location Left Arm History Since Last Visit- (Skip if this is Patient's initial visit) Have you changed medications since your No last visit? Any new allergies or adverse reactions No Had a fall/change in ADL's that may No increase risk of falls Signs or symptoms of abuse and/or No neglect since last visit Have you been in the hospital since your No last visit? Has dressing in place as prescribed Yes Has compression in place as prescribed No Has offloadiing in place as prescribed Yes Experienced any changes in pain level or No management Pain Scale: 0-10 Numeric Is Patient Pain Free? Yes Lower Extremity Assessment/ Foot Assessment/ Toe Nail Assessment Right -Posterior Tibial Palpable Yes -Dorsalis Pedis Palpable Yes -Extremity Color Normal -Hair Growth on Legs No -Temperature of Extremity Warm -Capillary Refill Less than 3 Seconds -Dependent Rubor No -Blanched when Elevated No -Lipodermatosclerosis No -Other Deformity No -Prior Foot Ulcer No -Charcot Joint No -Prior Amputation No -Thick No -Discolored No -Deformed No -Improper Length & Hygeine No Left -Posterior Tibial Palpable Yes -Dorsalis Pedis Palpable Yes -Extremity Color Normal -Hair Growth on Legs No -Hair Growth on Toes No -Temperature of Extremity Warm -Capillary Refill Less than 3 Seconds -Dependent Rubor No -Blanched when Elevated No -Lipodermatosclerosis No -Other Deformity No -Prior Foot Ulcer No -Charcot Joint No -Prior Amputation Yes -Toe Nail Assessment Not Applicable Neuropathy Assessment Feet - Top Side and Bottom <Entered> (a) Communication Assessment Preferred language Angolan Budget Clerk Required No Able to Read Yes Communication Tools None Right Hearing Abillity Normal Left Hearing Abillity Normal Visual Assistive Devices Glasses Teaching Assessment Preferences Verbal,Written, Demonstration Barriers to Learning None Readiness To Learn Good Willingness to Engage in Self Management Med Activies Readiness to Engage in Self Management Med Activities Anxiety Level Calm Cooperation Cooperative Perception Coherent Interest in Health Problem Asks Questions Education Importance Acknowledges Need Does Patient Smoke tobacco or other No substances Smoking Status Never smoker Is Patient Diabetic No Functional Assessment Recent Decline in Ability to Perform Ambulation Assistive Device With Patient No Culture/Rastafari/Manager Home Improvement Cultural/Rastafari Needs that may affect No Treatment Plan Would you allow our [facility] associate professor of biblical studies to No meet you for the purpose of spiritual/ emotional support? Manager Home Improvement to contact place of voodoo No (a) 1 - + throughout WC - Nurse 1 - General Ulcer Measurement Start: 03/01/23 14:08 Freq: Status: Active Protocol: Activity Type Activity Date Activity User E-sign Co-sign Detail Recorded Client Recorded Date Recorded By Document 03/01/23 14:10 RB Desktop 03/01/23 14:36 RB 03/01/23 14:10 Wound Center Nurse 1 1. L foot plantar -Combined with other wound No -Current Size (cm) - Length 1.1 -Current Size (cm) - Width 0.8 -Current Size (cm) - Depth 0.2 -Total Square Cm 0.88 -Photo Taken Yes -Tunneling No -Undermining/Tunneling No -Circular Undermining No -Exudate Amt Medium -Exudate Type Serosanguineous -Wound Margin Thickened -Granulation Amt Medium (34-66%) -Granulation Quality [place] -Slough/Fibrin Yes -Necrosis Amt Small (1-33%) -Necrotic Tissue Type Adherent Slough -Structure Exposed N/A -Texture (Audrey-wound Skin Appearance) Assessed -Moisture (Audrey-wound Skin Appearance) Assessed -Color (Audrey-wound Skin Appearance) Assessed -Temperature (Audrey-wound Skin No Abnormality Appearance) (Pt Warm) -Tenderness on Palpation (Audrey-wound No Skin Appearance) -Ulcer Cleansing Wound Cleanser -Foul Odor after Cleansing No -Anesthetic Used 5% Lidocaine Gel Right Calf (cm) 40.2 Right Ankle (cm) 24.5 Left Calf (cm) 40.6 Left Ankle (cm) 23.5 Assessment/Plan Assessment/Plan (1) Non-pressure ulcer of left lower extremity with fat layer exposed: CODE(S): L97.922 - Non-pressure chronic ulcer of unspecified part of left lower leg with fat layer exposed PLAN: Patient was examined evaluated. All findings were discussed with the patient. All questions were answered to the patient satisfaction. Excisional debridement down to and including subcutaneous tissue with a #15 blade to the left TMA stump ulceration without incident. Predebridement measurement is 1.0 x 1.2 x 0.1 cm. Postdebridement measurement is 1.3 x 1.4 x 0.3 cm. Ulceration was dressed with Negra, Betadine paint, dry sterile dressing and a single-layer Tubigrip was placed left lower extremity. Will begin authorization for amniotic skin graft substitute. Patient had cultures taken to the ulceration to rule infection. Will get radiographs to the left foot for evaluation of as well as rule out of osteomyelitis. Patient was understanding. Patient is to be nonweightbearing to left lower extremity. Follow-up in 1 week. 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
--- NOTE | 2023-03-01 15:30 | RAD_ITS ---
EXAM: XR LEFT FOOT COMPLETE, 3 OR MORE VIEWS CLINICAL INDICATION: OSTEOMYELITIS TECHNIQUE: Frontal, lateral and oblique views of the left foot. COMPARISON: 03/31/2018 FINDINGS: BONES/JOINTS: Status post transmetatarsal amputation. Fixation hardware is again identified at through the midfoot. Interval rehabilitation more proximally at the first metatarsal. No acute fracture. No subluxation. Normal alignment. No sclerotic or destructive changes observed. No distinct erosive changes to indicate osteomyelitis. SOFT TISSUES: Apparent soft tissue swelling throughout the lower extremity. No radiopaque foreign body. RAD/Foot min 3 Views IMPRESSION: 1. No distinct erosive changes to indicate osteomyelitis. 2. Apparent soft tissue swelling throughout the lower extremity. 3. Status post transmetatarsal amputation. Fixation hardware is again identified at through the midfoot. Interval rehabilitation more proximally at the first metatarsal. Electronically Signed: Shubham Titus DO at 23:18 EST ,
[2023-03-08 09:16] VITALS: BP 133/83; PULSE 91; RESP 18; TEMP 36.2; BMI 35.6
--- NOTE | 2023-03-08 09:50 | PN.PCM_ITS ---
History of Present Illness Date of Service: 03/08/23 Chief Complaint: Full-thickness ulceration plantar left TMA stump History of Wound: Ms. Mckinney is a 57-year-old diabetic female presenting to the wound care center today for second evaluation for the full-thickness ulceration to the plantar aspect of the left TMA stump. She is a patient of Dr. Barnes who has been doing an office excisional debridements without healing of the wound. She denies of any infection or drainage at this time. The patient would like to get amniotic skin graft substitutes while in the wound care center. She admits that this ulceration comes and goes about every 6 months. She denies trauma. Denies constitutional symptoms. No other pedal complaints at this time. Progress of Wound: Ms. Mckinney is a 57-year-old diabetic female presenting to wound care center today for follow-up and evaluation as well as second opinion to the full-thickness ulceration of the plantar aspect of left TMA stump. Patient would like to get skin graft substitute to help her ulceration heal. She admits that the ulceration reoccurs approximately every 6 months. She does admit to elevated blood glucose above 200 mg/dL. She knows that she should be under 150 mg/dL as she knows it inhibits her healing. Denies trauma. Denies constitutional symptoms. No other pedal complaints at this time. Subjective Subjective Ms. Clinton is a 57-year-old diabetic presenting to clinic today for follow-up evaluation of full-thickness ulceration to the left plantar foot. Patient has been doing home dressing changes. She has kept her dressing clean dry and intact. Her blood sugar has been well-controlled during this time. Her blood sugar today was 112 mg/dL. She did have her radiographs of the left foot that show concern for periosteal reaction to the first metatarsal. There is evidence of status post Charcot reconstruction as well. Patient presents today for graft placement. She will be placed on an antibiotic for prophylaxis. She denies trauma. Denies constitutional symptoms. No other pedal complaints at this time. Objective Data Objective Data Vital Signs: Vital Signs Temp Pulse Resp BP O2 Del Method 97.2 F L 91 18 133/83 H Room Air 03/08/23 09:16 03/08/23 09:16 03/08/23 09:16 03/08/23 09:16 03/08/23 09:16 Oxygen Delivery Method Room Air Weight: 88.451 kg Body Mass Index (BMI) 35.6 Lab / Micro Data Micro: Microbiology 03/01/23 15:00 Wound - Left Foot Gram Stain - Final 03/01/23 15:00 Wound - Left Foot Wound Culture - Final Staphylococcus aureus Strep anginosus 03/01/23 15:00 Wound - Left Foot Anaerobic Culture - Final Anaerobic cocci Physical Exam Narrative Vascular: DP and PT pulses are palpable. CFT is brisk to the TMA stump to the left lower extremity. Skin temperature gradient warm to warm from proximal ankle to distal digits. No evidence of increased focal warmth. No erythema or proximal streaking. Neurological: Light touch intact. Patient does not respond to painful stimuli. Protective sensation is absent. Dermatological: Full-thickness ulceration appreciated to the plantar left TMA stump measuring 1.2 x 0.9 x 0.9 cm. No erythema or proximal streaking. No sign of infection. Excisional debridement down to and including subcutaneous tissue with a number 5 mm dermal curette to the left TMA stump ulceration without incident. Predebridement measurement is 1.0 x 1.2 x 0.1 cm. Postdebridement measurement is 1.2 x 0.9 x 0.9 cm. EpiFix 18 mm disc was applied to the left full-thickness ulceration with 100% use. First application. The graft site was free and clear of any infection. The wound/skin graft substitute was dressed with nonadherent bandage secured in place with Steri-Strips followed by bolster dressing as well as a single layer Tubigrip. Musculoskeletal: No pain to palpation of full-thickness ulceration to the left TMA stump. No pain with calf pressure. Debridement Note Debridement Note Debridement Free Text: Excisional debridement down to and including subcutaneous tissue with a number 5 mm dermal curette to the left TMA stump ulceration without incident. Predebridement measurement is 1.0 x 1.2 x 0.1 cm. Postdebridement measurement is 1.2 x 0.9 x 0.9 cm. EpiFix 18 mm disc was applied to the left full-thickness ulceration with 100% use. First application. The graft site was free and clear of any infection. The wound/skin graft substitute was dressed with nonadherent bandage secured in place with Steri-Strips followed by bolster dressing as well as a single layer Tubigrip. Post-Debridement Measurements and Additional Note: Post-Debridement Measurements/Treatment - Nurse 1 - General Ulcer Assessment Start: 03/01/23 14:08 Freq: Status: Active Protocol: VENUS Activity Type Activity Date Activity User E-sign Co-sign Detail Recorded Client Recorded Date Recorded By Document 03/01/23 14:10 RB Desktop 03/01/23 14:36 RB Document 03/08/23 09:16 GM Desktop 03/08/23 09:21 03/01/23 03/08/23 14:10 09:16 - Today's Visit Information Type of service Initial Visit Follow-up Visit (Physician/RN SUPPLEMENTAL ) Arrival Mode Ambulatory Ambulatory, Other Transfer Assistance None None Patient Identification Verified (Name & Yes Yes ) Patient Requires Transmission-Based No No Precautions Finger Stick Blood Sugar(mg/dl) (if 133 indicated): Blood Sugar Stated by Patient Height and Weight Height 5 ft 2 in Weight 88.451 kg Weight in Pounds 195.0 lbs Body Mass Index (BMI) 35.6 35.6 BMI Classification Obese Obese BSA - Justin 1.89 Vital Signs Temperature (97.8 F-99.1 F) 97.5 F L 97.2 F L Temperature Source Temporal Temporal Pulse Rate (60-100) 87 91 Pulse Location Monitor Monitor Respiratory Rate (12-18) 18 18 Respiratory rate source Observation Observation Oxygen Delivery Method Room Air Blood Pressure (90/60-120/80) 147/82 H 133/83 H Blood Pressure Mean (mm Hg) 103 99 Source Monitor Monitor Position Semi-Fowlers Sitting Blood Pressure Location Left Arm Left Forearm History Since Last Visit- (Skip if this is Patient's initial visit) Have you changed medications since your No No last visit? Any new allergies or adverse reactions No No Had a fall/change in ADL's that may No No increase risk of falls Signs or symptoms of abuse and/or No No neglect since last visit Have you been in the hospital since your No No last visit? Has dressing in place as prescribed Yes Yes Has compression in place as prescribed No Yes Has offloadiing in place as prescribed Yes Yes Experienced any changes in pain level or No No management Pain Scale: 0-10 Numeric Is Patient Pain Free? Yes Yes Lower Extremity Assessment/ Foot Assessment/ Toe Nail Assessment Right -Posterior Tibial Palpable Yes -Dorsalis Pedis Palpable Yes -Extremity Color Normal -Hair Growth on Legs No -Temperature of Extremity Warm -Capillary Refill Less than 3 Seconds -Dependent Rubor No -Blanched when Elevated No -Lipodermatosclerosis No -Other Deformity No -Prior Foot Ulcer No -Charcot Joint No -Prior Amputation No -Thick No -Discolored No -Deformed No -Improper Length & Hygeine No Left -Posterior Tibial Palpable Yes -Dorsalis Pedis Palpable Yes -Extremity Color Normal -Hair Growth on Legs No -Hair Growth on Toes No -Temperature of Extremity Warm -Capillary Refill Less than 3 Seconds -Dependent Rubor No -Blanched when Elevated No -Lipodermatosclerosis No -Other Deformity No -Prior Foot Ulcer No -Charcot Joint No -Prior Amputation Yes -Toe Nail Assessment Not Applicable Neuropathy Assessment Feet - Top Side and Bottom <Entered> (a) Communication Assessment Preferred language Divehi Documentation Lead Required No Able to Read Yes Communication Tools None Right Hearing Abillity Normal Left Hearing Abillity Normal Visual Assistive Devices Glasses Teaching Assessment Preferences Verbal,Written, Demonstration Barriers to Learning None Readiness To Learn Good Willingness to Engage in Self Management Med Activies Readiness to Engage in Self Management Med Activities Anxiety Level Calm Cooperation Cooperative Perception Coherent Interest in Health Problem Asks Questions Education Importance Acknowledges Need Does Patient Smoke tobacco or other No substances Smoking Status Never smoker Is Patient Diabetic No Functional Assessment Recent Decline in Ability to Perform Ambulation Assistive Device With Patient No Culture/Yazidism/Wooden Frame Builder Cultural/Yazidism Needs that may affect No Treatment Plan Would you allow our hospital mainspring fabrication supervisor to No meet you for the purpose of spiritual/ emotional support? Wooden Frame Builder to contact place of congregational No (a) 1 - + throughout WC - Nurse 1 - General Ulcer Measurement Start: 03/01/23 14:08 Freq: Status: Active Protocol: Activity Type Activity Date Activity User E-sign Co-sign Detail Recorded Client Recorded Date Recorded By Document 03/01/23 14:10 RB Desktop 03/01/23 14:36 RB Document 03/08/23 09:16 Desktop 03/08/23 09:21 03/01/23 03/08/23 14:10 09:16 Wound Center Nurse 1 1. L foot plantar -Combined with other wound No No -Current Size (cm) - Length 1.1 1.0 -Current Size (cm) - Width 0.8 0.4 -Current Size (cm) - Depth 0.2 0.7 -Total Square Cm 0.88 0.40 -Date of Last Picture (Recall this 03/08/23 field) -Photo Taken Yes Yes -Epithelialization None Present -Tunneling No No -Undermining/Tunneling No No -Circular Undermining No No -Exudate Amt Medium Medium -Exudate Type Serosanguineous Serosanguineous -Wound Margin Thickened Distinct, Outline Attached -Granulation Amt Medium (34-66%) Small (1-33%) -Granulation Quality [place] -Slough/Fibrin Yes -Necrosis Amt Small (1-33%) Small (1-33%) -Necrotic Tissue Type Adherent Slough Adherent Slough -Structure Exposed N/A N/A -Texture (Audrey-wound Skin Appearance) Assessed Assessed, Scarring -Moisture (Audrey-wound Skin Appearance) Assessed Assessed -Color (Audrey-wound Skin Appearance) Assessed Assessed -Temperature (Audrey-wound Skin No Abnormality No Abnormality Appearance) (Pt Warm) (Pt Warm) -Tenderness on Palpation (Audrey-wound No No Skin Appearance) -Ulcer Cleansing Wound Cleanser Rinsed/ Irrigated with Saline -Foul Odor after Cleansing No No -Anesthetic Used 5% Lidocaine 5% Lidocaine Gel Gel Right Calf (cm) 40.2 Right Ankle (cm) 24.5 Left Calf (cm) 40.6 38.7 Left Ankle (cm) 23.5 22.6 WC - Nurse 2 - General Ulcer CM Notes Start: 03/01/23 14:08 Freq: Status: Active Protocol: Activity Type Activity Date Activity User E-sign Co-sign Detail Recorded Client Recorded Date Recorded By Document 03/01/23 16:39 [id number] 03/01/23 16:41 Document 03/08/23 09:37 Laptop 03/08/23 09:41 03/01/23 03/08/23 16:39 09:37 Wound Center Nurse 2 1. L foot plantar -Time 14:48 09:37 -Correct Patient Yes Yes -Correct Side, Site, Position Yes Yes -Correct Procedure Yes Yes -Procedure Performed Yes Yes -Type of Procedure Debridement Debridement -Clinical Debridement Subcutaneous Subcutaneous -Tissue Removed Subcutaneous Subcutaneous -Post Debridement (cm) - Length 1.3 1.2 -Post Debridement (cm) - Width 1.4 0.9 -Post Debridement (cm) - Depth 0.3 0.9 -Total Square (Post) (cm) 1.82 1.08 -Area of Debridement (cm) - Length 1.3 1.2 -Area of Debridement (cm) - Width 1.4 0.9 -Total Square (Area) (cm) 1.82 1.08 -Tunneling No No -Undermining/Tunneling No No -Circular Undermining No No -Wound/Ulcer Outcome Not Healed Not Healed -Ulcer Cleansing Rinsed/ Rinsed/ Irrigated with Irrigated with Saline Saline -Foul Odor after Cleansing No No -Bioengineered Tissue No Yes -Type of Bioengineered Tissue Epifix 18mm Disc -Expiration Date 10/09/27 -Product Lot Number [id number] -Percent Used 100 -Lot number of Saline Used [id number] -Bleeding Controlled with Pressure Pressure -Treatment Response Procedure Procedure Tolerated Well Tolerated Well -Offloading Yes -Type of Offloading Knee Walker -Debridement - Subq, 1st 20sq cm Yes No -Apply Skin Sub - 1st 25 sq cm - Feet 1 -Epifix 18mm Disc 3 Pain Scale: 0-10 Numeric Is Patient Pain Free? Yes Yes - Nurse 3 - General Ulcer D/C NN Start: 03/01/23 14:08 Freq: Status: Active Protocol: Activity Type Activity Date Activity User E-sign Co-sign Detail Recorded Client Recorded Date Recorded By Document 03/01/23 16:05 Desktop 03/01/23 16:06 03/01/23 16:05 Wound Care Center Nurse 3 1. L foot plantar -Ulcer Cleansing betadine periulcer -Primary Dressing Applied Promogran Negra Matter -Primary Dressing Covered/Secured with Dry Gauze,Dry Gauze & Roll Gauze,Secured with Tape -Promogran Negra Matter 2 Left -Tubular Bandage Single Layer -Size of Tubigrip Used Size D -Size D ($) 1 Treatment Response Procedure Tolerated Well Pain Scale: 0-10 Numeric Is Patient Pain Free? Yes Teaching: Wound Center Dressing Your Wound -Person Taught Patient -Teaching Method Discussion, Demonstration -Response to teaching Verbalize understanding WC - Visit Discharge Discharge Condition Stable Ambulatory Status Ambulatory, Walker Transportation Private Auto Medication Reconcilliation completed & No provided to patient/care provider Clinical Summary of Care Provided Yes Notes: kneewalker Assessment/Plan Assessment/Plan (1) Non-pressure ulcer of left lower extremity with fat layer exposed: CODE(S): L97.922 - Non-pressure chronic ulcer of unspecified part of left lower leg with fat layer exposed PLAN: Patient was examined and evaluated. All findings were discussed with the patient. All questions were answered to the patient's satisfaction. Excisional debridement down to and including subcutaneous tissue with a number 5 mm dermal curette to the left TMA stump ulceration without incident. Predebride ment measurement is 1.0 x 1.2 x 0.1 cm. Postdebridement measurement is 1.2 x 0.9 x 0.9 cm. EpiFix 18 mm disc was applied to the left full-thickness ulceration with 100% use. First application. The graft site was free and clear of any infection. The wound/skin graft substitute was dressed with nonadherent bandage secured in place with Steri-Strips followed by bolster dressing as well as a single layer Tubigrip. Patient will follow-up in 1 week for evaluation. We will also book the patient for hardware removal and partial excision of the first metatarsal left foot. (2) Diabetes mellitus with diabetic polyneuropathy: CODE(S): E11.42 - Type 2 diabetes mellitus with diabetic polyneuropathy QUALIFIERS: Diabetes mellitus type: type 2 Diabetes mellitus managing manager insulin use: with managing manager use Qualified Code(s): E11.42 - Type 2 diabetes mellitus with diabetic polyneuropathy; Z79.4 - senior insight manager international (current) use of insulin (3) Chronic osteomyelitis of left foot: CODE(S): M86.672 - Other chronic osteomyelitis, left ankle and foot PLAN: Reviewed the patient's antibiotic cultures and the patient will be placed on the following antibiotic. Patient will be placed on Zyvox twice daily, 600 mg for 14 days.
== END 2023-03-09 23:59 | disposition home or self-care (01) ==
LOC: WC 09:15
PROVIDERS: PCP Internal Medicine; Referring Provider Podiatrist; Visit Provider Podiatrist Foot & Ankle Surgery
DX: T87.89 Other complications of amputation stump (principal); E11.621 Type 2 diabetes mellitus with foot ulcer; E11.51 Type 2 diabetes mellitus with diabetic peripheral angiopathy without gangrene; L97.922 Non-pressure chronic ulcer of unspecified part of left lower leg with fat layer exposed; E11.65 Type 2 diabetes mellitus with hyperglycemia; E11.42 Type 2 diabetes mellitus with diabetic polyneuropathy; M67.02 Short Achilles tendon (acquired), left ankle; Y83.5 Amputation of limb(s) as the cause of abnormal reaction of the patient, or of later complication, without mention of misadventure at the time of the procedure; E78.5 Hyperlipidemia, unspecified; E03.9 Hypothyroidism, unspecified; Z96.41 Presence of insulin pump (external) (internal); Z79.890 Hormone replacement therapy; Z79.899 Other long term (current) drug therapy
CPT/HCPCS: 11042; 15275; 73630; 87070; 87075; 87077; 87101; 87186; 87205; 99213; Q4186; G0463

== ENCOUNTER → 2023-03-13 | Outpatient (CLI) | payer MEDICAID, SELFPAY ==
[2023-03-13 12:31] LABS: Absolute Lymphocyte Count 1.62 X10^3/uL (0.83-4.51); Absolute Neutrophil Count 4.5 X10^3/uL (2.0-7.7); Basophil# 0.07 X10^3/uL; Basophil% 1.1 % (0-1); Eosinophil# 0.08 X10^3/uL; Eosinophils% 1.2 % (0-5); Hematocrit 40.5 % (37-47); Lymphocyte # 1.62 X10^3/ul (0.83-4.51); Lymphocyte % 24.3 % (19-41); Mean Corp Hgb Conc 32.1 g/dL (32-36); Mean Corpuscular Hgb 29.5 pg (27.0-32.0); Mean Platelet Vol. 11.3 fl (6.2-12.0); Monocyte# 0.39 X10^3/uL; Monocyte% 5.9 % (0-10); NRBC Flagged by Analyzer 0 % (0-5); Neutrophil # 4.46 X10^3/uL (2.7-7.7); Neutrophil % 66.9 % (47-70); Platelet Count 241 K/mm3 (150-450); RBC Distribution Width CV 13.3 % (11.6-14.6); RBC Distribution Width SD 45.4 fl (35.1-43.9); White Blood Count 6.7 K/mm3 (4.4-11.0)
[2023-03-13 13:34] LABS: ALB/GLOB Ratio 0.9 RATIO (0.9-2.4); AST(SGOT) 26 U/L (15-37); Alanine Aminotransfer ALT/SGPT 48 U/L (13-56); Albumin, Serum 3.5 g/dL (3.2-5.0); Alkaline Phosphatase 88 U/L (45-117); Anion Gap 9 (5-15); BUN 17 mg/dL (7-18); BUN/Creat Ratio 17.6 RATIO (10-20); Calcium,Total 8.7 mg/dL (8.5-10.1); Chloride 105 mmol/L (98-107); Creatinine, Serum 0.96 mg/dL (0.55-1.02); EST Glomerular Filtration Rate 64 mL/min (>60); Est Glom Filt Rate - Afr Amer 77 mL/min (>60); Globulin 3.7 g/dL (2.2-4.2); Glucose 251 mg/dL (74-106); Potassium 4.3 mmol/L (3.5-5.1); Protein, Total 7.2 g/dL (6.4-8.2); Sodium Level 136 mmol/L (136-145)
== END | disposition home or self-care (01) ==
LOC: BIMLAB 08:45
PROVIDERS: PCP Internal Medicine; Referring Provider Internal Medicine; Visit Provider Internal Medicine
DX: I10 Essential (primary) hypertension (principal)
CPT/HCPCS: 36415; 80053; 85025

== ENCOUNTER 2023-04-05 09:15 | Outpatient (RCR) | payer MEDICAID, SELFPAY ==
[2023-03-10 00:51] VITALS: BP 133/83; PULSE 91; RESP 18; TEMP 36.2; BMI 35.6
[2023-03-15 09:28] VITALS: BP 137/56; PULSE 89; RESP 18; TEMP 35.8; BMI 35.6
--- NOTE | 2023-03-15 10:04 | PN.PCM_ITS ---
History of Present Illness Date of Service: 03/15/23 Chief Complaint: Full-thickness ulceration plantar left TMA stump History of Wound: Ms. Mckinney is a 57-year-old diabetic female presenting to the wound care center today for second evaluation for the full-thickness ulceration to the plantar aspect of the left TMA stump. She is a patient of Dr. Barnes who has been doing an office excisional debridements without healing of the wound. She denies of any infection or drainage at this time. The patient would like to get amniotic skin graft substitutes while in the wound care center. She admits that this ulceration comes and goes about every 6 months. She denies trauma. Denies constitutional symptoms. No other pedal complaints at this time. Subjective Subjective Mrs. Clinton is a 57-year-old female presenting to the wound care center today for follow-up and evaluation of full-thickness wound with graft placement to the plantar aspect of the left foot. Patient is still awaiting clearance for her surgical procedure to remove the infected bone to her first metatarsal as well as remove the hardware. Patient is kept her blood sugar under control. She has kept her dressing clean dry and intact. She denies trauma. Denies cons titutional symptoms. No other pedal complaints at this time. Objective Data Objective Data Vital Signs: Vital Signs Temp Pulse Resp BP 96.5 F L 89 18 137/56 H 03/15/23 09:28 03/15/23 09:28 03/15/23 09:28 03/15/23 09:28 Weight: 88.451 kg Body Mass Index (BMI) 35.6 Physical Exam Narrative Vascular: DP and PT pulses are palpable. CFT is brisk to the TMA stump to the left lower extremity. Skin temperature gradient warm to warm from proximal ankle to distal digits. No evidence of increased focal warmth. No erythema or proximal streaking. Neurological: Light touch intact. Patient does not respond to painful stimuli. Protective sensation is absent. Dermatological: Full-thickness ulceration appreciated to the plantar left TMA stump measuring 0.9 x 0.5 x 0.2 cm. No erythema or proximal streaking. No sign of infection. Excisional debridement down to and including subcutaneous tissue with a number 5 mm dermal curette to the left TMA stump ulceration without incident. Predebridement measurement is 0.7 x 0.3 x 0.1 cm. Postdebridement measurement is 0.9 x 0.5 x 0.2 cm. EpiFix 18 mm disc was applied to the left full-thickness ulceration with 100% use. Second application. The graft site was free and clear of any infection. The wound/skin graft substitute was dressed with nonadherent bandage secured in place with Steri-Strips followed by bolster dressing as well as a single layer Tubigrip. Musculoskeletal: No pain to palpation of full-thickness ulceration to the left TMA stump. No pain with calf pressure. Debridement Note Debridement Note Debridement Free Text: Excisional debridement down to and including subcutaneous tissue with a number 5 mm dermal curette to the left TMA stump ulceration without incident. Predebridement measurement is 0.7 x 0.3 x 0.1 cm. Postdebridement measurement is 0.9 x 0.5 x 0.2 cm. EpiFix 18 mm disc was applied to the left full-thickness ulceration with 100% use. Second application. The graft site was free and clear of any infection. The wound/skin graft substitute was dressed with nonadherent bandage secured in place with Steri-Strips followed by bolster dressing as well as a single layer Tubigrip. Post-Debridement Measurements and Additional Note: Post-Debridement Measurements/Treatment - Nurse 1 - General Ulcer Assessment Start: 03/15/23 09:27 Freq: Status: Active Protocol: [email or web address] Activity Type Activity Date Activity User E-sign Co-sign Detail Recorded Client Recorded Date Recorded By Document 03/15/23 09:28 DL Desktop 03/15/23 09:30 DL 03/15/23 09:28 - Today's Visit Information Type of service Follow-up Visit (Physician/PSYCHIATRIC NURSE PRACTITIONER ) Arrival Mode Ambulatory, Walker Arrival Mode (Other) knee walker Transfer Assistance None Patient Identification Verified (Name & Yes ) Patient Requires Transmission-Based No Precautions Finger Stick Blood Sugar(mg/dl) (if 92 indicated): Blood Sugar Stated by Patient Height and Weight Body Mass Index (BMI) 35.6 BMI Classification Obese Vital Signs Temperature (97.8 F-99.1 F) 96.5 F L Temperature Source Temporal Pulse Rate (60-100) 89 Pulse Location Monitor Respiratory Rate (12-18) 18 Respiratory rate source Observation Blood Pressure (90/60-120/80) 137/56 H Blood Pressure Mean (mm Hg) 83 Source Monitor History Since Last Visit- (Skip if this is Patient's initial visit) Have you changed medications since your No last visit? Any new allergies or adverse reactions No Had a fall/change in ADL's that may No increase risk of falls Signs or symptoms of abuse and/or No neglect since last visit Have you been in the hospital since your No last visit? Has dressing in place as prescribed Yes Has compression in place as prescribed Yes Has offloadiing in place as prescribed Yes Experienced any changes in pain level or No management Left Footwear No Footwear Pain Scale: 0-10 Numeric Is Patient Pain Free? Yes - Nurse 1 - General Ulcer Measurement Start: 03/15/23 09:27 Freq: Status: Active Protocol: Activity Type Activity Date Activity User E-sign Co-sign Detail Recorded Client Recorded Date Recorded By Document 03/15/23 09:28 DL Desktop 03/15/23 09:30 DL 03/15/23 09:28 Wound Center Nurse 1 1. L foot plantar -Current Size (cm) - Length 0.7 -Current Size (cm) - Width 0.3 -Current Size (cm) - Depth 0.2 -Total Square Cm 0.21 -Exudate Amt Medium -Exudate Type Serosanguineous -Wound Margin Thickened -Granulation Amt Small (1-33%) -Granulation Quality Red -Necrosis Amt None Present (0 %) -Structure Exposed N/A -Texture (Audrey-wound Skin Appearance) Callus,Scarring -Moisture (Audrey-wound Skin Appearance) Maceration -Color (Audrey-wound Skin Appearance) No Abnormality -Temperature (Audrey-wound Skin No Abnormality Appearance) (Pt Warm) -Tenderness on Palpation (Audrey-wound No Skin Appearance) -Ulcer Cleansing Soap and Water -Foul Odor after Cleansing No -Anesthetic Used 5% Lidocaine Gel - Nurse 2 - General Ulcer CM Notes Start: 03/15/23 09:27 Freq: Status: Active Protocol: Activity Type Activity Date Activity User E-sign Co-sign Detail Recorded Client Recorded Date Recorded By Document 03/15/23 09:39 Laptop 03/15/23 09:46 03/15/23 09:39 Wound Center Nurse 2 -Time 09:39 -Correct Patient Yes -Correct Side, Site, Position Yes -Correct Procedure Yes -Procedure Performed Yes -Type of Procedure Debridement -Clinical Debridement Subcutaneous -Tissue Removed Subcutaneous -Post Debridement (cm) - Length 0.9 -Post Debridement (cm) - Width 0.5 -Post Debridement (cm) - Depth 0.2 -Total Square (Post) (cm) 0.45 -Area of Debridement (cm) - Length 0.9 -Area of Debridement (cm) - Width 0.5 -Total Square (Area) (cm) 0.45 -Tunneling No -Undermining/Tunneling No -Circular Undermining No -Wound/Ulcer Outcome Not Healed -Ulcer Cleansing Rinsed/ Irrigated with Saline -Foul Odor after Cleansing No -Bioengineered Tissue Yes -Type of Bioengineered Tissue Epifix 18mm Disc -Expiration Date 11/09/27 -Product Lot Number [id number] -Percent Used 100 -Lot number of Saline Used [id number] -Bleeding Controlled with Pressure -Treatment Response Procedure Tolerated Well -Offloading Yes -Type of Offloading Knee Walker -Debridement - Subq, 1st 20sq cm No -Apply Skin Sub - 1st 25 sq cm - Feet 1 -Epifix 18mm Disc 3 Pain Scale: 0-10 Numeric Is Patient Pain Free? Yes - Nurse 3 - General Ulcer D/C NN Start: 03/15/23 09:27 Freq: Status: Active Protocol: Activity Type Activity Date Activity User E-sign Co-sign Detail Recorded Client Recorded Date Recorded By Document 03/15/23 09:50 DL Desktop 03/15/23 09:50 DL 03/15/23 09:50 Wound Care Center Nurse 3 1. L foot plantar -Primary Dressing Applied Mepilex Border -Other Dressing epifix, -Other Covering drsg per dl energy and conservation technician -Mepilex Border 1 Treatment Response Procedure Tolerated Well Pain Scale: 0-10 Numeric Is Patient Pain Free? 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 All findings were discussed with the patient. All questions were answered to the patient satisfaction. Excisional debridement down to and including subcutaneous tissue with a number 5 mm dermal curette to the left TMA stump ulceration without incident. Predebridement measurement is 0.7 x 0.3 x 0.1 cm. Postdebridement measurement is 0.9 x 0.5 x 0.2 cm. EpiFix 18 mm disc was applied to the left full-thickness ulceration with 100% use. Second application. The graft site was free and clear of any infection. The wound/skin graft substitute was dressed with nonadherent bandage secured in place with Steri-Strips followed by bolster dressing as well as a single layer Tubigrip. Patient will follow-up in 1 week for graft application. We are still waiting for the patient to be cleared for surgery. Patient was understanding. (2) Diabetes mellitus with diabetic polyneuropathy: CODE(S): E11.42 - Type 2 diabetes mellitus with diabetic polyneuropathy QUALIFIERS: Diabetes mellitus type: type 2 Diabetes mellitus snf insulin use: with snf use Qualified Code(s): E11.42 - Type 2 diabetes mellitus with diabetic polyneuropathy; Z79.4 - longterm (current) use of insulin (3) Chronic osteomyelitis of left foot: CODE(S): M86.672 - Other chronic osteomyelitis, left ankle and foot
[2023-03-22 09:10] VITALS: BP 116/50; PULSE 92; RESP 18; TEMP 36.1; BMI 35.6
--- NOTE | 2023-03-22 11:38 | PN.PCM_ITS ---
History of Present Illness Date of Service: 03/22/23 Chief Complaint: Full-thickness ulceration plantar left TMA stump History of Wound: Ms. Mckinney is a 57-year-old diabetic female presenting to the wound care center today for second evaluation for the full-thickness ulceration to the plantar aspect of the left TMA stump. She is a patient of Dr. Barnes who has been doing an office excisional debridements without healing of the wound. She denies of any infection or drainage at this time. The patient would like to get amniotic skin graft substitutes while in the wound care center. She admits that this ulceration comes and goes about every 6 months. She denies trauma. Denies constitutional symptoms. No other pedal complaints at this time. Subjective Subjective Mrs. Clinton is a 57-year-old female presenting to the wound care center today for follow-up and evaluation of full-thickness wound with graft placement to the plantar aspect of the left foot. Patient is still awaiting clearance for her surgical procedure to remove the infected bone to her first metatarsal as well as remove the hardware. Patient is kept her blood sugar under control. She has kept her dressing clean dry and intact. She denies trauma. Denies cons titutional symptoms. No other pedal complaints at this time. Objective Data Objective Data Vital Signs: Vital Signs Temp Pulse Resp BP O2 Del Method 96.9 F L 92 18 116/50 L Room Air 03/22/23 09:10 03/22/23 09:10 03/22/23 09:10 03/22/23 09:10 03/22/23 09:10 Oxygen Delivery Method Room Air Weight: 88.451 kg Body Mass Index (BMI) 35.6 Physical Exam Narrative Vascular: DP and PT pulses are palpable. CFT is brisk to the TMA stump to the left lower extremity. Skin temperature gradient warm to warm from proximal ankle to distal digits. No evidence of increased focal warmth. No erythema or proximal streaking. Neurological: Light touch intact. Patient does not respond to painful stimuli. Protective sensation is absent. Dermatological: Full-thickness ulceration appreciated to the plantar left TMA stump measuring 0.7 x 0.4 x 0.2 cm. No erythema or proximal streaking. No sign of infection. Excisional debridement down to and including subcutaneous tissue with a number 5 mm dermal curette to the left TMA stump ulceration without incident. Predebridement measurement is 0.5 x 0.3 x 0.1 cm. Postdebridement measurement is 0.7 x 0.4 x 0.2 cm. EpiFix 18 mm disc was applied to the left full-thickness ulceration with 100% use. Third application. The graft site was free and clear of any infection. The wound/skin graft substitute was dressed with nonadherent bandage secured in place with Steri-Strips followed by bolster dressing as well as a single layer Tubigrip. Musculoskeletal: No pain to palpation of full-thickness ulceration to the left TMA stump. No pain with calf pressure. Debridement Note Debridement Note Debridement Free Text: Excisional debridement down to and including subcutaneous tissue with a number 5 mm dermal curette to the left TMA stump ulceration without incident. Predebridement measurement is 0.5 x 0.3 x 0.1 cm. Postdebridement measurement is 0.7 x 0.4 x 0.2 cm. EpiFix 18 mm disc was applied to the left full-thickness ulceration with 100% use. Third application. The graft site was free and clear of any infection. The wound/skin graft substitute was dressed with nonadherent bandage secured in place with Steri-Strips followed by bolster dressing as well as a single layer Tubigrip. Post-Debridement Measurements and Additional Note: Post-Debridement Measurements/Treatment WC - Nurse 1 - General Ulcer Assessment Start: 03/15/23 09:27 Freq: Status: Active Protocol: WC.LOWEXT Activity Type Activity Date Activity User E-sign Co-sign Detail Recorded Client Recorded Date Recorded By Document 03/15/23 09:28 DL Desktop 03/15/23 09:30 DL Document 03/22/23 09:10 KW Desktop 03/22/23 09:17 KW 03/15/23 03/22/23 09:28 09:10 - Today's Visit Information Type of service Follow-up Visit Follow-up Visit (Physician/EDUCATIONAL SPECIALIST (Physician/EDUCATIONAL SPECIALIST ) ) Arrival Mode Ambulatory, Other Walker Arrival Mode (Other) knee walker knee roller Transfer Assistance None Patient Identification Verified (Name & Yes Yes ) Patient Requires Transmission-Based No Precautions Finger Stick Blood Sugar(mg/dl) (if 92 indicated): Blood Sugar Stated by Patient Height and Weight Body Mass Index (BMI) 35.6 35.6 BMI Classification Obese Obese Vital Signs Temperature (97.8 F-99.1 F) 96.5 F L 96.9 F L Temperature Source Temporal Temporal Pulse Rate (60-100) 89 92 Pulse Location Monitor Monitor Respiratory Rate (12-18) 18 18 Respiratory rate source Observation Observation Oxygen Delivery Method Room Air Blood Pressure (90/60-120/80) 137/56 H 116/50 L Blood Pressure Mean (mm Hg) 83 72 Source Monitor Monitor Position Semi-Fowlers Blood Pressure Location Left Arm History Since Last Visit- (Skip if this is Patient's initial visit) Have you changed medications since your No No last visit? Any new allergies or adverse reactions No No Had a fall/change in ADL's that may No No increase risk of falls Signs or symptoms of abuse and/or No No neglect since last visit Have you been in the hospital since your No No last visit? Has dressing in place as prescribed Yes Yes Has compression in place as prescribed Yes Yes Has offloadiing in place as prescribed Yes Yes Experienced any changes in pain level or No No management Left Footwear No Footwear Regular Shoe Right Footwear Regular Shoe Pain Scale: 0-10 Numeric Is Patient Pain Free? Yes No LT PLANTAR -Intensity 8 -Alleviating Factors/Interventions Medication WC - Nurse 1 - General Ulcer Measurement Start: 03/15/23 09:27 Freq: Status: Active Protocol: Activity Type Activity Date Activity User E-sign Co-sign Detail Recorded Client Recorded Date Recorded By Document 03/15/23 09:28 DL Desktop 03/15/23 09:30 DL Document 03/22/23 09:10 KW Desktop 03/22/23 09:17 KW 03/15/23 03/22/23 09:28 09:10 Wound Center Nurse 1 1. L foot plantar -Current Size (cm) - Length 0.7 0.6 -Current Size (cm) - Width 0.3 0.4 -Current Size (cm) - Depth 0.2 0.3 -Total Square Cm 0.21 0.24 -Exudate Amt Medium Small -Exudate Type Serosanguineous Serosanguineous -Wound Margin Thickened Distinct, Outline Attached -Granulation Amt Small (1-33%) Small (1-33%) -Granulation Quality Red [place] -Necrosis Amt None Present (0 Small (1-33%) %) -Necrotic Tissue Type Adherent Slough -Structure Exposed N/A -Texture (Audrey-wound Skin Appearance) Callus,Scarring Assessed -Moisture (Audrey-wound Skin Appearance) Maceration Assessed, Maceration -Color (Audrey-wound Skin Appearance) No Abnormality Assessed -Temperature (Audrey-wound Skin No Abnormality Appearance) (Pt Warm) -Tenderness on Palpation (Audrey-wound No Skin Appearance) -Ulcer Cleansing Soap and Water Rinsed/ Irrigated with Saline -Foul Odor after Cleansing No -Anesthetic Used 5% Lidocaine 5% Lidocaine Gel Gel WC - Nurse 2 - General Ulcer CM Notes Start: 03/15/23 09:27 Freq: Status: Active Protocol: Activity Type Activity Date Activity User E-sign Co-sign Detail Recorded Client Recorded Date Recorded By Document 03/15/23 09:39 Laptop 03/15/23 09:46 Document 03/22/23 09:34 Desktop 03/22/23 09:39 03/15/23 03/22/23 09:39 09:34 Wound Center Nurse 2 1. L foot plantar -Time 09:39 09:34 -Correct Patient Yes Yes -Correct Side, Site, Position Yes Yes -Correct Procedure Yes Yes -Procedure Performed Yes Yes -Type of Procedure Debridement Debridement -Clinical Debridement Subcutaneous Subcutaneous -Tissue Removed Subcutaneous Subcutaneous -Post Debridement (cm) - Length 0.9 0.7 -Post Debridement (cm) - Width 0.5 0.4 -Post Debridement (cm) - Depth 0.2 0.2 -Total Square (Post) (cm) 0.45 0.28 -Area of Debridement (cm) - Length 0.9 0.7 -Area of Debridement (cm) - Width 0.5 0.4 -Total Square (Area) (cm) 0.45 0.28 -Tunneling No No -Undermining/Tunneling No No -Circular Undermining No No -Wound/Ulcer Outcome Not Healed Not Healed -Ulcer Cleansing Rinsed/ Rinsed/ Irrigated with Irrigated with Saline Saline -Foul Odor after Cleansing No No -Bioengineered Tissue Yes Yes -Type of Bioengineered Tissue Epifix 18mm Epifix 18mm Disc Disc -Expiration Date 11/09/27 11/09/27 -Product Lot Number [id number] -Percent Used 100 100 -Lot number of Saline Used [id number] -Bleeding Controlled with Pressure Pressure -Treatment Response Procedure Procedure Tolerated Well Tolerated Well -Offloading Yes Yes -Type of Offloading Knee Walker Knee Walker -Debridement - Subq, 1st 20sq cm No No -Apply Skin Sub - 1st 25 sq cm - Feet 1 1 -Epifix 18mm Disc 3 3 Pain Scale: 0-10 Numeric Is Patient Pain Free? Yes Yes - Nurse 3 - General Ulcer D/C NN Start: 03/15/23 09:27 Freq: Status: Active Protocol: Activity Type Activity Date Activity User E-sign Co-sign Detail Recorded Client Recorded Date Recorded By Document 03/15/23 09:50 DL Desktop 03/15/23 09:50 DL 03/15/23 09:50 Wound Care Center Nurse 3 1. L foot plantar -Primary Dressing Applied Mepilex Border -Other Dressing epifix, -Other Covering drsg per dl accounts supervisor -Mepilex Border 1 Treatment Response Procedure Tolerated Well Pain Scale: 0-10 Numeric Is Patient Pain Free? Yes - Visit Discharge Discharge Condition Stable Ambulatory Status Ambulatory, Walker Transportation Private Auto Accompanied by knee walker Assessment/Plan Assessment/Plan (1) Non-pressure ulcer of left lower extremity with fat layer exposed: CODE(S): L97.922 - Non-pressure chronic ulcer of unspecified part of left lower leg with fat layer exposed PLAN: Patient was examined and evaluated. All findings were discussed with the patient. All questions were answered to the patient satisfaction. Excisional debridement down to and including subcutaneous tissue with a number 5 mm dermal curette to the left TMA stump ulceration without incident. Predebridement measurement is 0.5 x 0.3 x 0.1 cm. Postdebridement measurement is 0.7 x 0.4 x 0.2 cm. EpiFix 18 mm disc was applied to the left full-thickness ulceration with 100% use. Third application. The graft site was free and clear of any infection. The wound/skin graft substitute was dressed with nonadherent bandage secured in place with Steri-Strips followed by bolster dressing as well as a single layer Tubigrip. Follow-up 1 week. (2) Diabetes mellitus with diabetic polyneuropathy: CODE(S): E11.42 - Type 2 diabetes mellitus with diabetic polyneuropathy QUALIFIERS: Diabetes mellitus type: type 2 Diabetes mellitus intermodal customer service insulin use: with fpc use Qualified Code(s): E11.42 - Type 2 diabetes mellitus with diabetic polyneuropathy; Z79.4 - intermediate card tender (current) use of insulin (3) Chronic osteomyelitis of left foot: CODE(S): M86.672 - Other chronic osteomyelitis, left ankle and foot
[2023-03-29 09:16] VITALS: BP 134/61; PULSE 89; RESP 16; BMI 35.6
--- NOTE | 2023-03-29 09:39 | PCM.WC.PN ---
History of Present Illness Date of Service: 03/29/23 Chief Complaint: Full-thickness ulceration plantar left TMA stump History of Wound: Ms. Mckinney is a 57-year-old diabetic female presenting to the wound care center today for second evaluation for the full-thickness ulceration to the plantar aspect of the left TMA stump. She is a patient of Dr. Barnes who has been doing an office excisional debridements without healing of the wound. She denies of any infection or drainage at this time. The patient would like to get amniotic skin graft substitutes while in the wound care center. She admits that this ulceration comes and goes about every 6 months. She denies trauma. Denies constitutional symptoms. No other pedal complaints at this time. Subjective Subjective Mrs. Mckinney is a 57-year-old female presenting to the wound care center today for follow-up and evaluation of full-thickness wound with graft placement to the plantar aspect of the left foot. Patient is still awaiting clearance for her surgical procedure to remove the infected bone to her first metatarsal as well as remove the hardware. Patient is kept her blood sugar under control. She has kept her dressing clean dry and intact. She denies trauma. Denies constitutional symptoms. No other pedal complaints at this time. Objective Data Objective Data Vital Signs: Vital Signs Temp Pulse Resp BP O2 Del Method 96.9 F L 89 16 134/61 H Room Air 03/22/23 09:10 03/29/23 09:16 03/29/23 09:16 03/29/23 09:16 03/29/23 09:16 Oxygen Delivery Method Room Air Weight: 88.451 kg Body Mass Index (BMI) 35.6 Physical Exam Narrative Vascular: DP and PT pulses are palpable. CFT is brisk to the TMA stump to the left lower extremity. Skin temperature gradient warm to warm from proximal ankle to distal digits. No evidence of increased focal warmth. No erythema or proximal streaking. Neurological: Light touch intact. Patient does not respond to painful stimuli. Protective sensation is absent. Dermatological: Full-thickness ulceration appreciated to the plantar left TMA stump measuring 0.6 x 0.6 x 1.0 cm. No erythema or proximal streaking. No sign of infection. Excisional debridement down to and including subcutaneous tissue with a number 5 mm dermal curette to the left TMA stump ulceration without incident. Predebridement measurement is 0.5 x 0.5 x 0.4 cm. Postdebridement measurement is 0.6 x 0.6 x 1.0 cm. EpiFix 18 mm disc was applied to the left full-thickness ulceration with 100% use. Fourth application. The graft site was free and clear of any infection. The wound/skin graft substitute was dressed with nonadherent bandage secured in place with Steri-Strips followed by bolster dressing as well as a single layer Tubigrip. Musculoskeletal: No pain to palpation of full-thickness ulceration to the left TMA stump. No pain with calf pressure. Debridement Note Debridement Note Debridement Free Text: Excisional debridement down to and including subcutaneous tissue with a number 5 mm dermal curette to the left TMA stump ulceration without incident. Predebridement measurement is 0.5 x 0.5 x 0.4 cm. Postdebridement measurement is 0.6 x 0.6 x 1.0 cm. EpiFix 18 mm disc was applied to the left full-thickness ulceration with 100% use. Fourth application. The graft site was free and clear of any infection. The wound/skin graft substitute was dressed with nonadherent bandage secured in place with Steri-Strips followed by bolster dressing as well as a single layer Tubigrip. Post-Debridement Measurements and Additional Note: Post-Debridement Measurements/Treatment - Nurse 1 - General Ulcer Assessment Start: 03/15/23 09:27 Freq: Status: Active Protocol: .LOWEXT Activity Type Activity Date Activity User E-sign Co-sign Detail Recorded Client Recorded Date Recorded By Document 03/15/23 09:28 DL Desktop 03/15/23 09:30 DL Document 03/22/23 09:10 KW Desktop 03/22/23 09:17 KW Document 03/29/23 09:16 BMF Desktop 03/29/23 09:23 BMF 03/15/23 03/22/23 03/29/23 09:28 09:10 09:16 - Today's Visit Information Type of service Follow-up Visit Follow-up Visit Follow-up Visit (Physician/[employer] (Physician/[employer] (Physician/[employer] ) ) ) Arrival Mode Ambulatory, Other Ambulatory, Walker Walker Arrival Mode (Other) knee walker knee roller knee walker Transfer Assistance None None Accompanied by mom Patient Identification Verified (Name & Yes Yes Yes ) Patient Requires Transmission-Based No Precautions Finger Stick Blood Sugar(mg/dl) (if 92 indicated): Blood Sugar Stated by Patient Height and Weight Body Mass Index (BMI) 35.6 35.6 35.6 BMI Classification Obese Obese Obese Vital Signs Temperature (97.8 F-99.1 F) 96.5 F L 96.9 F L Temperature Source Temporal Temporal Pulse Rate (60-100) 89 92 89 Pulse Location Monitor Monitor Monitor Respiratory Rate (12-18) 18 18 16 Respiratory rate source Observation Observation Observation Oxygen Delivery Method Room Air Room Air Blood Pressure (90/60-120/80) 137/56 H 116/50 L 134/61 H Blood Pressure Mean (mm Hg) 83 72 85 Source Monitor Monitor Monitor Position Semi-Fowlers Sitting Blood Pressure Location Left Arm Right Arm History Since Last Visit- (Skip if this is Patient's initial visit) Have you changed medications since your No No No last visit? Any new allergies or adverse reactions No No No Had a fall/change in ADL's that may No No No increase risk of falls Signs or symptoms of abuse and/or No No No neglect since last visit Have you been in the hospital since your No No No last visit? Has dressing in place as prescribed Yes Yes Yes Has compression in place as prescribed Yes Yes Yes Has offloadiing in place as prescribed Yes Yes N/A Experienced any changes in pain level or No No No management Left Footwear No Footwear Regular Shoe Diabetic Shoe Right Footwear Regular Shoe Diabetic Shoe Pain Scale: 0-10 Numeric Is Patient Pain Free? Yes No Yes LT PLANTAR -Intensity 8 -Alleviating Factors/Interventions Medication WC - Nurse 1 - General Ulcer Measurement Start: 03/15/23 09:27 Freq: Status: Active Protocol: Activity Type Activity Date Activity User E-sign Co-sign Detail Recorded Client Recorded Date Recorded By Document 03/15/23 09:28 DL Desktop 03/15/23 09:30 DL Document 03/22/23 09:10 KW Desktop 03/22/23 09:17 KW Document 03/29/23 09:16 BMF Desktop 03/29/23 09:23 BMF 03/15/23 03/22/23 03/29/23 09:28 09:10 09:16 Wound Center Nurse 1 1. L foot plantar -Combined with other wound No -Current Size (cm) - Length 0.7 0.6 0.5 -Current Size (cm) - Width 0.3 0.4 0.2 -Current Size (cm) - Depth 0.2 0.3 0.4 -Total Square Cm 0.21 0.24 0.10 -Photo Taken No -Tunneling No -Undermining/Tunneling No -Circular Undermining No -Exudate Amt Medium Small Large -Exudate Type Serosanguineous Serosanguineous Sanguineous -Wound Margin Thickened Distinct, Distinct, Outline Outline Attached Attached -Granulation Amt Small (1-33%) Small (1-33%) Large (67-100%) -Granulation Quality [place] -Slough/Fibrin Yes -Necrosis Amt None Present (0 Small (1-33%) Small (1-33%) %) -Necrotic Tissue Type Adherent Slough Adherent Slough -Structure Exposed N/A -Texture (Audrey-wound Skin Appearance) Callus,Scarring Assessed Assessed, Scarring -Moisture (Audrey-wound Skin Appearance) Maceration Assessed, Assessed, Maceration Maceration -Color (Audrey-wound Skin Appearance) No Abnormality Assessed Assessed -Temperature (Audrey-wound Skin No Abnormality No Abnormality Appearance) (Pt Warm) (Pt Warm) -Tenderness on Palpation (Audrey-wound No No Skin Appearance) -Ulcer Cleansing Soap and Water Rinsed/ Soap and Water Irrigated with Saline -Foul Odor after Cleansing No No -Anesthetic Used 5% Lidocaine 5% Lidocaine 5% Lidocaine Gel Gel Gel WC - Nurse 2 - General Ulcer CM Notes Start: 03/15/23 09:27 Freq: Status: Active Protocol: Activity Type Activity Date Activity User E-sign Co-sign Detail Recorded Client Recorded Date Recorded By Document 03/15/23 09:39 Laptop 03/15/23 09:46 Document 03/22/23 09:34 Desktop 03/22/23 09:39 Document 03/29/23 09:34 Laptop 03/29/23 09:37 03/15/23 03/22/23 03/29/23 09:39 09:34 09:34 Wound Center Nurse 2 1. L foot plantar -Time 09:39 09:34 09:35 -Correct Patient Yes Yes Yes -Correct Side, Site, Position Yes Yes Yes -Correct Procedure Yes Yes Yes -Procedure Performed Yes Yes Yes -Type of Procedure Debridement Debridement Debridement -Clinical Debridement Subcutaneous Subcutaneous Muscle / Fascia -Tissue Removed Subcutaneous Subcutaneous Fascia -Post Debridement (cm) - Length 0.9 0.7 0.6 -Post Debridement (cm) - Width 0.5 0.4 0.4 -Post Debridement (cm) - Depth 0.2 0.2 1.0 -Total Square (Post) (cm) 0.45 0.28 0.24 -Area of Debridement (cm) - Length 0.9 0.7 0.6 -Area of Debridement (cm) - Width 0.5 0.4 0.4 -Total Square (Area) (cm) 0.45 0.28 0.24 -Tunneling No No No -Undermining/Tunneling No No No -Circular Undermining No No No -Wound/Ulcer Outcome Not Healed Not Healed Not Healed -Ulcer Cleansing Rinsed/ Rinsed/ Rinsed/ Irrigated with Irrigated with Irrigated with Saline Saline Saline -Foul Odor after Cleansing No No No -Bioengineered Tissue Yes Yes No -Type of Bioengineered Tissue Epifix 18mm Epifix 18mm Epifix 18mm Disc Disc Disc -Expiration Date 11/09/27 11/09/27 12/10/27 -Product Lot Number [id number] -Percent Used 100 100 100 -Lot number of Saline Used [id number] -Bleeding Controlled with Pressure Pressure Pressure -Treatment Response Procedure Procedure Procedure Tolerated Well Tolerated Well Tolerated Well -Offloading Yes Yes Yes -Type of Offloading Knee Walker Knee Walker Knee Walker -Debridement - Subq, 1st 20sq cm No No No -Debridement - Muscle / Fascia, 1st No 20sq cm -Apply Skin Sub - 1st 25 sq cm - Feet 1 1 1 -Epifix 18mm Disc 3 3 3 Pain Scale: 0-10 Numeric Is Patient Pain Free? Yes Yes Yes WC - Nurse 3 - General Ulcer D/C NN Start: 03/15/23 09:27 Freq: Status: Active Protocol: Activity Type Activity Date Activity User E-sign Co-sign Detail Recorded Client Recorded Date Recorded By Document 03/15/23 09:50 DL Desktop 03/15/23 09:50 DL 03/15/23 09:50 Wound Care Center Nurse 3 1. L foot plantar -Primary Dressing Applied Mepilex Border -Other Dressing epifix, -Other Covering drsg per dl underground miner -Mepilex Border 1 Treatment Response Procedure Tolerated Well Pain Scale: 0-10 Numeric Is Patient Pain Free? 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 All findings were discussed with the patient. All questions were answered to the patient's satisfaction. Excisional debridement down to and including subcutaneous tissue with a number 5 mm dermal curette to the left TMA stump ulceration without incident. Predebridement measurement is 0.5 x 0.5 x 0.4 cm. Postdebridement measurement is 0.6 x 0.6 x 1.0 cm. EpiFix 18 mm disc was applied to the left full-thickness ulceration with 100% use. Fourth application. The graft site was free and clear of any infection. The wound/skin graft substitute was dressed with nonadherent bandage secured in place with Steri-Strips followed by bolster dressing as well as a single layer Tubigrip. Follow-up in 1 week. 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
[2023-04-05 09:23] VITALS: BP 115/42; PULSE 91; RESP 18; TEMP 35.8; BMI 35.6
--- NOTE | 2023-04-05 09:53 | PN.PCM_ITS ---
History of Present Illness Date of Service: 04/05/23 Chief Complaint: Full-thickness ulceration plantar left TMA stump History of Wound: Ms. Mckinney is a 57-year-old diabetic female presenting to the wound care center today for second evaluation for the full-thickness ulceration to the plantar aspect of the left TMA stump. She is a patient of Dr. Barnes who has been doing an office excisional debridements without healing of the wound. She denies of any infection or drainage at this time. The patient would like to get amniotic skin graft substitutes while in the wound care center. She admits that this ulceration comes and goes about every 6 months. She denies trauma. Denies constitutional symptoms. No other pedal complaints at this time. Subjective Subjective Mrs. Mckinney is a 57-year-old female presenting to the wound care center today for follow-up and evaluation of full-thickness wound with graft placement to the plantar aspect of the left foot. Patient is still awaiting clearance for her surgical procedure to remove the infected bone to her first metatarsal as well as remove the hardware. Patient is kept her blood sugar under control. She was taking her antibiotic as written however it was having some GI discomfort and stop her antibiotic after approximately 7 days. She has kept her dressing clean dry and intact. She denies trauma. Denies constitutional symptoms. No other pedal complaints at this time. Objective Data Objective Data Vital Signs: Vital Signs Temp Pulse Resp BP O2 Del Method 96.5 F L 91 18 115/42 L Room Air 04/05/23 09:23 04/05/23 09:23 04/05/23 09:23 04/05/23 09:23 04/05/23 09:23 Oxygen Delivery Method Room Air Weight: 88.451 kg Body Mass Index (BMI) 35.6 Physical Exam Narrative Vascular: DP and PT pulses are palpable. CFT is brisk to the TMA stump to the left lower extremity. Skin temperature gradient warm to warm from proximal ankle to distal digits. No evidence of increased focal warmth. No erythema or proximal streaking. Neurological: Light touch intact. Patient does not respond to painful stimuli. Protective sensation is absent. Dermatological: Full-thickness ulceration appreciated to the plantar left TMA stump measuring 0.5 x 0.3 x 0.2 cm. No erythema or proximal streaking. No sign of infection. Excisional debridement down to and including subcutaneous tissue with a number 5 mm dermal curette to the left TMA stump ulceration without incident. Predebridement measurement is 0.4 x 0.2 x 0.1 cm. Postdebridement measurement is 0.5 x 0.3 x 0.2 cm. EpiFix 18 mm disc was applied to the left full-thickness ulceration with 100% use. Fifth application. The graft site was free and clear of any infection. The wound/skin graft substitute was dressed with nonadherent bandage secured in place with Steri-Strips followed by bolster dressing as well as a single layer Tubigrip. Musculoskeletal: No pain to palpation of full-thickness ulceration to the left TMA stump. No pain with calf pressure. Debridement Note Debridement Note Debridement Free Text: Excisional debridement down to and including subcutaneous tissue with a number 5 mm dermal curette to the left TMA stump ulceration without incident. Predebridement measurement is 0.4 x 0.2 x 0.1 cm. Postdebridement measurement is 0.5 x 0.3 x 0.2 cm. EpiFix 18 mm disc was applied to the left full-thickness ulceration with 100% use. Fifth application. The graft site was free and clear of any infection. The wound/skin graft substitute was dressed with nonadherent bandage secured in place with Steri-Strips followed by bolster dressing as well as a single layer Tubigrip. Post-Debridement Measurements and Additional Note: Post-Debridement Measurements/Treatment - Nurse 1 - General Ulcer Assessment Start: 03/15/23 09:27 Freq: Status: Active Protocol: [email or web address] Activity Type Activity Date Activity User E-sign Co-sign Detail Recorded Client Recorded Date Recorded By Document 03/15/23 09:28 DL Desktop 03/15/23 09:30 DL Document 03/22/23 09:10 KW Desktop 03/22/23 09:17 KW Document 03/29/23 09:16 BMF Desktop 03/29/23 09:23 BMF Document 04/05/23 09:23 GM Desktop 04/05/23 09:29 GM 03/15/23 03/22/23 03/29/23 09:28 09:10 09:16 - Today's Visit Information Type of service Follow-up Visit Follow-up Visit Follow-up Visit (Physician/MEDICARE CONTACT SPECIALIST (Physician/MEDICARE CONTACT SPECIALIST (Physician/MEDICARE CONTACT SPECIALIST ) ) ) Arrival Mode Ambulatory, Other Ambulatory, Walker Walker Arrival Mode (Other) knee walker knee roller knee walker Transfer Assistance None None Transfer Assist (Other) Accompanied by mom Patient Identification Verified (Name & Yes Yes Yes ) Patient Requires Transmission-Based No Precautions Finger Stick Blood Sugar(mg/dl) (if 92 indicated): Blood Sugar Stated by Patient Height and Weight Body Mass Index (BMI) 35.6 35.6 35.6 BMI Classification Obese Obese Obese Vital Signs Temperature (97.8 F-99.1 F) 96.5 F L 96.9 F L Temperature Source Temporal Temporal Pulse Rate (60-100) 89 92 89 Pulse Location Monitor Monitor Monitor Respiratory Rate (12-18) 18 18 16 Respiratory rate source Observation Observation Observation Oxygen Delivery Method Room Air Room Air Blood Pressure (90/60-120/80) 137/56 H 116/50 L 134/61 H Blood Pressure Mean (mm Hg) 83 72 85 Source Monitor Monitor Monitor Position Semi-Fowlers Sitting Blood Pressure Location Left Arm Right Arm History Since Last Visit- (Skip if this is Patient's initial visit) Have you changed medications since your No No No last visit? Any new allergies or adverse reactions No No No Had a fall/change in ADL's that may No No No increase risk of falls Signs or symptoms of abuse and/or No No No neglect since last visit Have you been in the hospital since your No No No last visit? Has dressing in place as prescribed Yes Yes Yes Has compression in place as prescribed Yes Yes Yes Has offloadiing in place as prescribed Yes Yes N/A Experienced any changes in pain level or No No No management Left Footwear No Footwear Regular Shoe Diabetic Shoe Right Footwear Regular Shoe Diabetic Shoe Pain Scale: 0-10 Numeric Is Patient Pain Free? Yes No Yes LT PLANTAR -Intensity 8 -Alleviating Factors/Interventions Medication 04/05/23 09:23 WC - Today's Visit Information Type of service Follow-up Visit (Physician/MEDICARE CONTACT SPECIALIST ) Arrival Mode Ambulatory, Other Arrival Mode (Other) Transfer Assistance None Transfer Assist (Other) knee roller Accompanied by Patient Identification Verified (Name & Yes ) Patient Requires Transmission-Based No Precautions Finger Stick Blood Sugar(mg/dl) (if indicated): Blood Sugar Height and Weight Body Mass Index (BMI) 35.6 BMI Classification Obese Vital Signs Temperature (97.8 F-99.1 F) 96.5 F L Temperature Source Temporal Pulse Rate (60-100) 91 Pulse Location Monitor Respiratory Rate (12-18) 18 Respiratory rate source Observation Oxygen Delivery Method Room Air Blood Pressure (90/60-120/80) 115/42 L Blood Pressure Mean (mm Hg) 66 Source Monitor Position Sitting Blood Pressure Location Right Arm History Since Last Visit- (Skip if this is Patient's initial visit) Have you changed medications since your No last visit? Any new allergies or adverse reactions No Had a fall/change in ADL's that may No increase risk of falls Signs or symptoms of abuse and/or No neglect since last visit Have you been in the hospital since your No last visit? Has dressing in place as prescribed Yes Has compression in place as prescribed Has offloadiing in place as prescribed Yes Experienced any changes in pain level or management Left Footwear Right Footwear Pain Scale: 0-10 Numeric Is Patient Pain Free? Yes LT PLANTAR -Intensity -Alleviating Factors/Interventions WC - Nurse 1 - General Ulcer Measurement Start: 03/15/23 09:27 Freq: Status: Active Protocol: Activity Type Activity Date Activity User E-sign Co-sign Detail Recorded Client Recorded Date Recorded By Document 03/15/23 09:28 DL Desktop 03/15/23 09:30 DL Document 03/22/23 09:10 KW Desktop 03/22/23 09:17 KW Document 03/29/23 09:16 BMF Desktop 03/29/23 09:23 BMF Document 04/05/23 09:23 GM Desktop 04/05/23 09:29 03/15/23 03/22/23 03/29/23 09:28 09:10 09:16 Wound Center Nurse 1 1. L foot plantar -Combined with other wound No -Current Size (cm) - Length 0.7 0.6 0.5 -Current Size (cm) - Width 0.3 0.4 0.2 -Current Size (cm) - Depth 0.2 0.3 0.4 -Total Square Cm 0.21 0.24 0.10 -Photo Taken No -Epithelialization -Tunneling No -Undermining/Tunneling No -Circular Undermining No -Exudate Amt Medium Small Large -Exudate Type Serosanguineous Serosanguineous Sanguineous -Wound Margin Thickened Distinct, Distinct, Outline Outline Attached Attached -Granulation Amt Small (1-33%) Small (1-33%) Large (67-100%) -Granulation Quality Red [place] -Slough/Fibrin Yes -Necrosis Amt None Present (0 Small (1-33%) Small (1-33%) %) -Necrotic Tissue Type Adherent Slough Adherent Slough -Structure Exposed N/A -Texture (Audrey-wound Skin Appearance) Callus,Scarring Assessed Assessed, Scarring -Moisture (Audrey-wound Skin Appearance) Maceration Assessed, Assessed, Maceration Maceration -Color (Audrey-wound Skin Appearance) No Abnormality Assessed Assessed -Temperature (Audrey-wound Skin No Abnormality No Abnormality Appearance) (Pt Warm) (Pt Warm) -Tenderness on Palpation (Audrey-wound No No Skin Appearance) -Ulcer Cleansing Soap and Water Rinsed/ Soap and Water Irrigated with Saline -Foul Odor after Cleansing No No -Anesthetic Used 5% Lidocaine 5% Lidocaine 5% Lidocaine Gel Gel Gel 04/05/23 09:23 Wound Center Nurse 1 1. L foot plantar -Combined with other wound -Current Size (cm) - Length 0.4 -Current Size (cm) - Width 0.3 -Current Size (cm) - Depth 0.1 -Total Square Cm 0.12 -Photo Taken No -Epithelialization Medium 34-66% -Tunneling No -Undermining/Tunneling No -Circular Undermining No -Exudate Amt Small -Exudate Type -Wound Margin Distinct, Outline Attached -Granulation Amt Small (1-33%) -Granulation Quality [place] -Slough/Fibrin -Necrosis Amt Small (1-33%) -Necrotic Tissue Type Adherent Slough -Structure Exposed -Texture (Audrey-wound Skin Appearance) Assessed, Scarring -Moisture (Audrey-wound Skin Appearance) Assessed -Color (Audrey-wound Skin Appearance) Assessed -Temperature (Audrey-wound Skin No Abnormality Appearance) (Pt Warm) -Tenderness on Palpation (Audrey-wound No Skin Appearance) -Ulcer Cleansing Soap and Water -Foul Odor after Cleansing -Anesthetic Used 5% Lidocaine Gel WC - Nurse 2 - General Ulcer CM Notes Start: 03/15/23 09:27 Freq: Status: Active Protocol: Activity Type Activity Date Activity User E-sign Co-sign Detail Recorded Client Recorded Date Recorded By Document 03/15/23 09:39 Laptop 03/15/23 09:46 Document 03/22/23 09:34 Desktop 03/22/23 09:39 Document 03/29/23 09:34 Laptop 03/29/23 09:37 Document 04/05/23 09:38 Laptop 04/05/23 09:40 03/15/23 03/22/23 03/29/23 09:39 09:34 09:34 Wound Center Nurse 2 1. L foot plantar -Time 09:39 09:34 09:35 -Correct Patient Yes Yes Yes -Correct Side, Site, Position Yes Yes Yes -Correct Procedure Yes Yes Yes -Procedure Performed Yes Yes Yes -Type of Procedure Debridement Debridement Debridement -Clinical Debridement Subcutaneous Subcutaneous Muscle / Fascia -Tissue Removed Subcutaneous Subcutaneous Fascia -Post Debridement (cm) - Length 0.9 0.7 0.6 -Post Debridement (cm) - Width 0.5 0.4 0.4 -Post Debridement (cm) - Depth 0.2 0.2 1.0 -Total Square (Post) (cm) 0.45 0.28 0.24 -Area of Debridement (cm) - Length 0.9 0.7 0.6 -Area of Debridement (cm) - Width 0.5 0.4 0.4 -Total Square (Area) (cm) 0.45 0.28 0.24 -Tunneling No No No -Undermining/Tunneling No No No -Circular Undermining No No No -Wound/Ulcer Outcome Not Healed Not Healed Not Healed -Ulcer Cleansing Rinsed/ Rinsed/ Rinsed/ Irrigated with Irrigated with Irrigated with Saline Saline Saline -Foul Odor after Cleansing No No No -Bioengineered Tissue Yes Yes No -Type of Bioengineered Tissue Epifix 18mm Epifix 18mm Epifix 18mm Disc Disc Disc -Expiration Date 11/09/27 11/09/27 12/10/27 -Product Lot Number [id number] -Percent Used 100 100 100 -Lot number of Saline Used [id number] -Bleeding Controlled with Pressure Pressure Pressure -Treatment Response Procedure Procedure Procedure Tolerated Well Tolerated Well Tolerated Well -Offloading Yes Yes Yes -Type of Offloading Knee Walker Knee Walker Knee Walker -Debridement - Subq, 1st 20sq cm No No No -Debridement - Muscle / Fascia, 1st No 20sq cm -Apply Skin Sub - 1st 25 sq cm - Feet 1 1 1 -Epifix 18mm Disc 3 3 3 Pain Scale: 0-10 Numeric Is Patient Pain Free? Yes Yes Yes 04/05/23 09:38 Wound Center Nurse 2 1. L foot plantar -Time -Correct Patient Yes -Correct Side, Site, Position Yes -Correct Procedure Yes -Procedure Performed Yes -Type of Procedure Debridement -Clinical Debridement Subcutaneous -Tissue Removed Subcutaneous -Post Debridement (cm) - Length 0.5 -Post Debridement (cm) - Width 0.3 -Post Debridement (cm) - Depth 0.2 -Total Square (Post) (cm) 0.15 -Area of Debridement (cm) - Length 0.5 -Area of Debridement (cm) - Width 0.3 -Total Square (Area) (cm) 0.15 -Tunneling No -Undermining/Tunneling No -Circular Undermining No -Wound/Ulcer Outcome Not Healed -Ulcer Cleansing Rinsed/ Irrigated with Saline -Foul Odor after Cleansing No -Bioengineered Tissue Yes -Type of Bioengineered Tissue Epifix 18mm Disc -Expiration Date 12/10/27 -Product Lot Number [id number] -Percent Used 100 -Lot number of Saline Used [id number] -Bleeding Controlled with Pressure -Treatment Response Procedure Tolerated Well -Offloading Yes -Type of Offloading Knee Walker -Debridement - Subq, 1st 20sq cm No -Debridement - Muscle / Fascia, 1st 20sq cm -Apply Skin Sub - 1st 25 sq cm - Feet 1 -Epifix 18mm Disc 3 Pain Scale: 0-10 Numeric Is Patient Pain Free? Yes - Nurse 3 - General Ulcer D/C NN Start: 03/15/23 09:27 Freq: Status: Active Protocol: Activity Type Activity Date Activity User E-sign Co-sign Detail Recorded Client Recorded Date Recorded By Document 03/15/23 09:50 DL Desktop 03/15/23 09:50 DL Document 03/29/23 09:44 BMF Desktop 03/29/23 09:45 BMF 03/15/23 03/29/23 09:50 09:44 Wound Care Center Nurse 3 1. L foot plantar -Primary Dressing Applied Mepilex Border -Other Dressing epifix, epifix -Primary Dressing Covered/Secured with Dry Gauze & Roll Gauze, Secured with Tape -Other Covering drsg per dl dining host chilo to secure -Mepilex Border 1 Left -Compression Wrap Chilo Wrap -Other chilo to secure Treatment Response Procedure Procedure Tolerated Well Tolerated Well Pain Scale: 0-10 Numeric Is Patient Pain Free? Yes Yes WC - Visit Discharge Discharge Condition Stable Stable Ambulatory Status Ambulatory, Ambulatory, Walker Walker Transportation Private Auto Private Auto Accompanied by knee walker knee walker Assessment/Plan Assessment/Plan (1) Non-pressure ulcer of left lower extremity with fat layer exposed: CODE(S): L97.922 - Non-pressure chronic ulcer of unspecified part of left lower leg with fat layer exposed PLAN: Patient was examined and evaluated. All findings were discussed with the patient. All questions were answered to the patient's satisfaction. Excisional debridement down to and including subcutaneous tissue with a number 5 mm dermal curette to the left TMA stump ulceration without incident. Predebridement measurement is 0.4 x 0.2 x 0.1 cm. Postdebridement measurement is 0.5 x 0.3 x 0.2 cm. EpiFix 18 mm disc was applied to the left full-thickness ulceration with 100% use. Fifth application. The graft site was free and clear of any infection. The wound/skin graft substitute was dressed with nonadherent bandage secured in place with Steri-Strips followed by bolster dressing as well as a single layer Tubigrip. Follow-up with the wound care center with Dr. Larsen in 1 week. (2) Diabetes mellitus with diabetic polyneuropathy: CODE(S): E11.42 - Type 2 diabetes mellitus with diabetic polyneuropathy QUALIFIERS: Diabetes mellitus type: type 2 Diabetes mellitus half-way insulin use: with intermediate manager use Qualified Code(s): E11.42 - Type 2 diabetes mellitus with diabetic polyneuropathy; Z79.4 - FDC (current) use of insulin
== END 2023-04-09 23:59 | disposition home or self-care (01) ==
LOC: WC 09:15
PROVIDERS: PCP Internal Medicine; Referring Provider Podiatrist; Visit Provider Podiatrist Foot & Ankle Surgery
DX: T87.89 Other complications of amputation stump (principal); L97.422 Non-pressure chronic ulcer of left heel and midfoot with fat layer exposed; M86.672 Other chronic osteomyelitis, left ankle and foot; E11.69 Type 2 diabetes mellitus with other specified complication; E11.42 Type 2 diabetes mellitus with diabetic polyneuropathy; Z79.4 Long term (current) use of insulin; Y83.5 Amputation of limb(s) as the cause of abnormal reaction of the patient, or of later complication, without mention of misadventure at the time of the procedure; Z79.899 Other long term (current) drug therapy
CPT/HCPCS: 15275; Q4186

== ENCOUNTER → 2023-04-14 | Outpatient (CLI) | payer SELFPAY ==
[2023-04-14 12:46] LABS: Absolute Lymphocyte Count 1.75 X10^3/uL (0.83-4.51); Basophil# 0.05 X10^3/uL; Basophil% 0.8 % (0-1); Eosinophils% 1.6 % (0-5); Hematocrit 38.5 % (37-47); Hemoglobin 12.5 g/dL (12.0-15.0); Lymphocyte # 1.75 X10^3/ul (0.83-4.51); Lymphocyte % 27.5 % (19-41); Mean Corp Hgb Conc 32.5 g/dL (32-36); Mean Corpuscular Hgb 29.8 pg (27.0-32.0); Mean Corpuscular Volume 91.7 fL (81-99); Mean Platelet Vol. 11.3 fl (6.2-12.0); Monocyte# 0.41 X10^3/uL; Monocyte% 6.4 % (0-10); NRBC Flagged by Analyzer 0 % (0-5); Neutrophil # 4.01 X10^3/uL (2.7-7.7); Neutrophil % 63.1 % (47-70); Platelet Count 262 K/mm3 (150-450); RBC Distribution Width CV 13.8 % (11.6-14.6); White Blood Count 6.4 K/mm3 (4.4-11.0)
[2023-04-14 13:09] LABS: AST(SGOT) 14 U/L (15-37); Alanine Aminotransfer ALT/SGPT 24 U/L (13-56); Albumin, Serum 3.4 g/dL (3.2-5.0); Alkaline Phosphatase 83 U/L (45-117); Anion Gap 6 (5-15); BUN 12 mg/dL (7-18); Calcium,Total 8.4 mg/dL (8.5-10.1); Chloride 111 mmol/L (98-107); Creatinine, Serum 0.71 mg/dL (0.55-1.02); EST Glomerular Filtration Rate 91 mL/min (>60); Est Glom Filt Rate - Afr Amer 110 mL/min (>60); Globulin 3.4 g/dL (2.2-4.2); Glucose 85 mg/dL (74-106); Potassium 4.1 mmol/L (3.5-5.1); Protein, Total 6.8 g/dL (6.4-8.2); Sodium Level 142 mmol/L (136-145)
== END | disposition home or self-care (01) ==
LOC: BIMLAB 09:49
PROVIDERS: PCP Internal Medicine; Visit Provider Internal Medicine
DX: Z01.818 Encounter for other preprocedural examination (principal); E03.9 Hypothyroidism, unspecified
CPT/HCPCS: 36415; 80053; 84443; 85025

== ENCOUNTER → 2023-05-23 | Outpatient (CLI) | payer BC, SELFPAY ==
--- OUTSIDE RECORDS SUMMARY | 2023-05-23 20:17 | XMS RPT_ITS | CCD ---
Author Name Unknown Address [address] [facility] [address] [place] [id number] Organization [facility] Care Team Providers Care Sheet Manager Name Role Phone LENORE NULL Unavailable Unavailable LENORE NULL Unavailable Unavailable KWABENA SOSA Unavailable Unavail able KWABENA SOSA Unavailable Unavail able PARMJIT LOPEZ DPM Admitting Unavailable PARMJIT LOPEZ DPM Attending Unavailable PARMJIT LOPEZ DPM Primary Care Unavailable NO, DOCTOR ON Consulting Unavailable Allergies Allergy Classification Reported Allergen(s) Allergy Type Date of Onset Reaction(s) Facility (1 source) acetaminophen / HYDROcodone; Translations: [HYDROCODONE-ACETA MINOPHEN] Drug Allergy 01-24-2005 [facility] Repository Problems Active Problems Problem Classification Problem Date Documented Da te Episodic/Chronic Unclassified (1 source) Encounter for screening mammogram for malignant neoplasm of breast; Translations: [Encounter for screening mammogram for malignant neoplasm of breast] Onset: 09-21-2017 Episodic Past or Other Problems Problem Classification Problem Date Documented Da te Episodic/Chronic Abdominal pain (1 source) Left lower quadrant pain; Translations: [Left lower quadrant pain] Onset: 05-29-2017 Episodic Results Test Name Value Interpretation Reference Range Facil ity Encounters Encounter Date Encounter Type Care Provider Facility Start: 11-15-2021 End: 11-15-2021 [facility] Start: 11-07-2017 End: 11-08-2017 Patient encounter KWABENA SALOMON [facility] Start: 09-21-2017 End: 09-21-2017 Patient encounter KWABENA SALOMON [facility] Start: 05-29-2017 End: 05-29-2017 Patient encounter LENORE NULL [facility] Start: 05-26-2017 End: 05-30-2017 Patient encounter LENORE NULL [facility] Payers Date Payer Category Payer Unknown [id number] Unknown [id number] Summary Purpose Family History No Family History Records FoundNo Family History Records FoundNo Family History Records FoundNo Family History Records Found Advance Directives No Advanced Directives Records FoundNo Advanced Directives Records FoundNo Advanced Directives Records FoundNo Advanced Directives Records Found Additional Source Comments INFORMATION SOURCE (unrecogn ized section and content) DATE CREATED AUTHOR AUTHOR'S ORGANIZ ATION 11/18/2018 [facility] ([place]) DATE CREATED AUTHOR AUTHOR'S ORGANIZ ATION 10/29/2019 [facility] [place] DATE CREATED AUTHOR AUTHOR'S ORGANIZ ATION 11/19/2021 [facility] FOR RECORDS PERTAINING TO PATIENTS WHO ARE OR HAVE BEEN ENROLLED IN A CHEMICAL DEPENDENCY/SUBSTANCEABUSE PROGRAM, SOME INFORMATION MAY BE OMITTED. This clinical summary was aggregated from multiple sources. Caution should be exercised in using it in the provision of clinical care. This summary normalizes information from multiple sources, and as a consequence, information in this document may materially change the coding, format and clinical context of patient data. In addition, data may be omitted in some cases. CLINICAL DECISIONS SHOULD BE BASED ON THE PRIMARY CLINICAL RECORDS. [facility]. provides no warranty or guarantee of the accuracy or completeness of information in this document.
== END | disposition home or self-care (01) ==
PROVIDERS: PCP Internal Medicine; Visit Provider Podiatrist
DX: L97.529 Non-pressure chronic ulcer of other part of left foot with unspecified severity (principal)
CPT/HCPCS: 87070; 87075; 87077; 87101; 87186; 87205

== ENCOUNTER → 2023-05-25 | Outpatient (CLI) | payer BC, SELFPAY ==
--- OUTSIDE RECORDS SUMMARY | 2023-05-25 08:55 | XMS RPT_ITS | CCD ---
Author Name Unknown Address [address] [facility] [address] [place] [id number] Organization [facility] Care Team Providers Care Owner Spa Director Name Role Phone LENORE NULL Unavailable Unavailable [...] HYDROcodone; Translations: [HYDROCODONE-ACETA MINOPHEN] Drug Allergy 01-24-2005 [facility] Repository Problems Active Problems Problem [...] Start: 11-15-2021 End: 11-15-2021 [facility] Start: 11-07-2017 End: 11-08-2017 Patient encounter KWABENA SALOMON [facility] Start: 09-21-2017 End: 09-21-2017 Patient encounter KWABENA SALOMON [facility] Start: 05-29-2017 End: 05-29-2017 Patient encounter LENORE NULL [facility] Start: 05-26-2017 End: 05-30-2017 Patient encounter LENORE NULL [facility] Payers Date Payer Category Payer Unknown [id number] Unknown [id number] Summary Purpose Family History No Family History Records FoundNo Family History Records FoundNo Family History Records FoundNo Family History Records Found Advance Directives No Advanced Directives Records FoundNo Advanced Directives Records FoundNo Advanced Directives Records FoundNo Advanced Directives Records Found Additional Source Comments INFORMATION SOURCE (unrecogn ized section and content) DATE CREATED AUTHOR AUTHOR'S ORGANIZ ATION 11/18/2018 [facility] ([place]) DATE CREATED AUTHOR AUTHOR'S ORGANIZ ATION 10/29/2019 [facility] DATE CREATED AUTHOR AUTHOR'S ORGANIZ ATION 11/19/2021 [facility] FOR RECORDS PERTAINING TO PATIENTS WHO [...] BE BASED ON THE PRIMARY CLINICAL RECORDS. [facility]. provides no warranty or guarantee of the accuracy or completeness of information in this document.
[2023-05-25 10:46] LABS: Vitamin D,25 Hydroxy 10.3 ng/mL
[2023-05-25 10:59] LABS: Thyroid Stim Hormone (TSH) 0.37 uIU/mL (0.358-3.74)
[2023-05-25 11:10] LABS: Hemoglobin A1c 6.6 % (3.8-5.6)
[2023-06-01 15:08] LABS: Cotinine Screen Blood <1.0 ng/mL (.); Nicotine Blood <1.0 ng/mL (.)
== END | disposition home or self-care (01) ==
LOC: BIMLAB 08:35
PROVIDERS: PCP Internal Medicine; Visit Provider Nurse Practitioner
DX: Z01.818 Encounter for other preprocedural examination (principal); E10.9 Type 1 diabetes mellitus without complications; E55.9 Vitamin D deficiency, unspecified; E03.9 Hypothyroidism, unspecified
CPT/HCPCS: 36415; 80323; 82306; 83036; 84443; G0480

== ENCOUNTER → 2023-06-14 | Outpatient (CLI) | payer BC, SELFPAY ==
--- OUTSIDE RECORDS SUMMARY | 2023-06-14 09:33 | XMS RPT_ITS | CCD ---
Author Name Unknown Address [address] [facility] [address] [place] [id number] Organization [facility] Care Team Providers Care Police Officer Name Role Phone LENORE NULL Unavailable Unavailable LENORE NULL Unavailable Unavailable KWABENA SOSA Unavailable Unavail able KWABENA SOSA Unavailable Unavail able PARMJIT LOPEZ DPM Admitting Unavailable PARMJIT OLPEZ DPM Attending Unavailable PARMJIT LOPEZ DPM Primary Care Unavailable NO, DOCTOR ON Consulting Unavailable Allergies Allergy Classification Reported Allergen(s) Allergy Type Date of Onset Reaction(s) Facility (1 source) acetaminophen / HYDROcodone; Translations: [HYDROCODONE-ACETA MINOPHEN] Drug Allergy 01-24-2005 [facility] Repository Problems Active Problems Problem Classification Problem [...] Start: 11-15-2021 End: 11-15-2021 [facility] Start: 11-07-2017 End: 11-08-2017 Patient encounter KWABENA SALOMON [facility] Start: 09-21-2017 End: 09-21-2017 Patient encounter KWABENA SALOMON [facility] Start: 05-29-2017 End: 05-29-2017 Patient encounter LENORE NULL [facility] Start: 05-26-2017 End: 05-30-2017 Patient encounter LENORE NULL [facility] Payers Date Payer Category Payer Unknown [id number] Unknown [id number] Summary Purpose Family History No Family History Records FoundNo Family History Records FoundNo Family History Records FoundNo Family History Records Found Advance Directives No Advanced Directives Records FoundNo Advanced Directives Records FoundNo Advanced Directives Records FoundNo Advanced Directives Records Found Additional Source Comments INFORMATION SOURCE (unrecogn ized section and content) DATE CREATED AUTHOR AUTHOR'S ORGANIZ ATION 11/18/2018 [facility] ([place]) DATE CREATED AUTHOR AUTHOR'S ORGANIZ ATION 10/29/2019 [facility] DATE CREATED AUTHOR AUTHOR'S ORGANIZ ATION 11/19/2021 [facility] FOR RECORDS PERTAINING TO PATIENTS WHO ARE [...] BE BASED ON THE PRIMARY CLINICAL RECORDS. [facility] [employer] [facility]. provides no warranty or guarantee of the accuracy or completeness of information in this document.
[2023-06-14 12:28] LABS: Absolute Lymphocyte Count 1.48 X10^3/uL (0.83-4.51); Basophil# 0.07 X10^3/uL; Basophil% 1.1 % (0-1); Eosinophil# 0.19 X10^3/uL; Eosinophils% 3.1 % (0-5); Hematocrit 38.3 % (37-47); Hemoglobin 12.1 g/dL (12.0-15.0); Lymphocyte # 1.48 X10^3/ul (0.83-4.51); Lymphocyte % 23.8 % (19-41); Mean Corp Hgb Conc 31.6 g/dL (32-36); Mean Corpuscular Hgb 29.5 pg (27.0-32.0); Mean Corpuscular Volume 93.4 fL (81-99); Mean Platelet Vol. 11.6 fl (6.2-12.0); Monocyte# 0.46 X10^3/uL; Monocyte% 7.4 % (0-10); NRBC Flagged by Analyzer 0 % (0-5); Neutrophil # 3.99 X10^3/uL (2.7-7.7); Neutrophil % 64.3 % (47-70); Platelet Count 292 K/mm3 (150-450); RBC Distribution Width CV 13.4 % (11.6-14.6); RBC Distribution Width SD 45.5 fl (35.1-43.9); White Blood Count 6.2 K/mm3 (4.4-11.0)
[2023-06-14 13:40] LABS: ALB/GLOB Ratio 1.1 RATIO (0.9-2.4); AST(SGOT) 17 U/L (15-37); Alanine Aminotransfer ALT/SGPT 25 U/L (13-56); Albumin, Serum 3.7 g/dL (3.2-5.0); Alkaline Phosphatase 82 U/L (45-117); Amylase 59 U/L (25-115); Anion Gap 7 (5-15); BUN 21 mg/dL (7-18); BUN/Creat Ratio 24.1 RATIO (10-20); Calcium,Total 8.6 mg/dL (8.5-10.1); Chloride 108 mmol/L (98-107); Creatinine, Serum 0.87 mg/dL (0.55-1.02); EST Glomerular Filtration Rate 72 mL/min (>60); Est Glom Filt Rate - Afr Amer 87 mL/min (>60); Globulin 3.3 g/dL (2.2-4.2); Glucose 121 mg/dL (74-106); Lipase 22 U/L (13-75); Potassium 4.7 mmol/L (3.5-5.1); Sodium Level 139 mmol/L (136-145); Thyroid Stim Hormone (TSH) 0.51 uIU/mL (0.358-3.74)
== END | disposition home or self-care (01) ==
LOC: BIMLAB 09:13
PROVIDERS: PCP Internal Medicine; Visit Provider Internal Medicine
DX: E03.9 Hypothyroidism, unspecified (principal); R10.9 Unspecified abdominal pain
CPT/HCPCS: 36415; 80053; 82150; 83690; 84443; 85025

== ENCOUNTER 2023-06-21 06:11 | Day surgery (SDC) | payer BC, SELFPAY ==
[2023-06-08 13:07] LABS: Magnesium 2.4 mg/dL (1.6-2.6)
[2023-06-21] VITALS (7 sets, daily range): BP systolic 118–142; BP diastolic 47–70; PULSE 74–84; RESP 15–20; TEMP 36.4–36.9; O2SAT 98–100; BMI 36.8
--- OUTSIDE RECORDS SUMMARY | 2023-06-21 06:13 | XMS RPT_ITS | CCD ---
Author Name Unknown Address [address] [facility] [address] [place] [id number] Organization [facility] Care Team Providers Care [employer] Chief Name Role Phone LENORE NULL Unavailable Unavailable [...] HYDROcodone; Translations: [HYDROCODONE-ACETA MINOPHEN] Drug Allergy 01-24-2005 [facility] Repository Problems Active Problems Problem Classification [...] Start: 11-15-2021 End: 11-15-2021 [facility] Start: 11-07-2017 End: 11-08-2017 Patient encounter KWABENA SALOMON [facility] Start: 09-21-2017 End: 09-21-2017 Patient encounter KWABENA SALOMON [facility] Start: 05-29-2017 End: 05-29-2017 Patient encounter LENORE NULL [facility] Start: 05-26-2017 End: 05-30-2017 Patient encounter LENORE NULL [facility] Payers Date Payer Category Payer Unknown [id number] Unknown [id number] Summary Purpose Family History No Family History Records FoundNo Family History Records FoundNo Family History Records FoundNo Family History Records Found Advance Directives No Advanced Directives Records FoundNo Advanced Directives Records FoundNo Advanced Directives Records FoundNo Advanced Directives Records Found Additional Source Comments INFORMATION SOURCE (unrecogn ized section and content) DATE CREATED AUTHOR AUTHOR'S ORGANIZ ATION 11/18/2018 [facility], [facility] ([place]) DATE CREATED AUTHOR AUTHOR'S ORGANIZ ATION 10/29/2019 [facility] DATE CREATED AUTHOR AUTHOR'S ORGANIZ ATION 11/19/2021 [facility] FOR RECORDS PERTAINING TO PATIENTS WHO ARE [...] BE BASED ON THE PRIMARY CLINICAL RECORDS. [facility]. provides no warranty or guarantee of the accuracy or completeness of information in this document.
[2023-06-21] MEDS: Lactated Ringers 1,000 ML 15 ML IV ×2 (06:48→10:10)
[2023-06-21] MEDS: Magnesium 1 GM over 15 mins IV (06:48)
[2023-06-21] MEDS: Acetaminophen 500 MG Tablet 1000 MG PO (06:49)
[2023-06-21] MEDS: Gabapentin 600 MG Tablet PO (06:49)
[2023-06-21 07:16] LABS: Bedside Glucose 103 mg/dL (74-106)
--- NOTE | 2023-06-21 08:03 | RAD_ITS ---
STUDY: X-RAY - LEFT FOOT CLINICAL: Female, 57 years old. Single frontal intraoperative digital documentation view of hardware removal. TECHNIQUE: A single frontal view of the foot. COMPARISON: Multiple prior foot images but none were submitted for comparison. FINDINGS: Single frontal view of the foot shows amputation of all of the phalanges and metatarsals to the bases. Plate and screw fixation is noted adjacent to the second and fourth digits. 12 images were acquired. One image saved. Total exposure time 14 seconds. The longest single exposure 2 seconds. Total DAP 1.3236 cGycm2. Total air kerma 0.078 mGy RAD/Foot 2 Views IMPRESSION: Intraoperative digital documentation view. Electronically Signed: Sarbjit Basilio MD at 14:52 EDT ,
[2023-06-21] MEDS: Cefazolin 2 GM in 0.9% Normal Saline (100mL Bag) 100 ML IV (08:05)
[2023-06-21] MEDS: Bupivacaine Mpf 0.5% 30 ML VIAL (08:25)
--- NOTE | 2023-06-21 10:13 | OP.PCM_ITS ---
Problems Associated Problem List Diagnoses (1) Other chronic osteomyelitis, left ankle and foot: (2) Non-pressure chronic ulcer of unspecified part of left lower leg with fat layer exposed: (3) Pain due to internal orthopedic prosthetic devices, implants and grafts, initial encounter: (4) Short Achilles tendon (acquired), left ankle: Report of Operation Date of Procedure: 06/21/23 Pre-Operative Diagnosis: 1. Osteomyelitis, left foot 2. Painful retained hardware, left foot 3. Non-pressure ulceration plantar aspect left foot 4. Short Achilles tendon, left lower extremity Post-Operative Diagnosis: 1. Osteomyelitis, left foot 2. Painful retained hardware, left foot 3. Non-pressure ulceration plantar aspect left foot 4. Short Achilles tendon, left lower extremity Surgery/Procedure Performed:: 1. Endoscopic gastroc recession, left lower extremity 2. Removal of painful retained hardware, left foot 3. Incision of bone cortex, left foot 4. Advancement flap closure, left foot 5. Delayed primary closure, left foot Description of Surgical Findings:: 1. Removal of soft first metatarsal bone, half sent to pathology half sent to microbiology for culture and sensitivity 2. Removal of first ray hardware, left foot 3. Advancement flap closure 4. Delayed primary closure of the full-thickness ulceration plantar left foot 5. Increased range of motion to the left lower extremity after gastroc recession as tested with Silfverskiold test. Surgeon: Rodo Larsen patient financial services manager: None Type of Anesthesia: General and Local Anesthesiologist: Loco Johns Special Medications: Per anesthesia Specimen's removed: Incision of bone cortex first metatarsal, left foot, half sent to pathology half sent to microbiology for culture and sensitivity Drains: None Estimated Blood Loss (mL): 40 mL Fluids Replaced: Per anesthesia Description of Procedure: Indications For Operation: Mrs. Clinton is a 57-year-old diabetic female who was admitted [facility] for for elective left foot surgery consisting of endoscopic gastroc recession, incision of bone cortex, removal of painful retained hardware, advancement flap closure with delayed primary closure to the full- thickness ulceration of the plantar aspect of the left lower extremity. Patient is well-known to my office and went through surgical consultation explaining the procedure with risk and benefits discussed with the patient great detail. Patient had deep bone cultures taken which showed evidence of osteomyelitis with a chronic nonhealing wound to the plantar aspect of the left lower extremity while in office. Patient has successfully taken 1 round of oral antibiotics prior to surgery today. Due to evidence of osteomyelitis to the first metatarsal as well as chronicity of the plantar aspect of the full-thickness wound it has been deemed necessary at this time to take the patient to the operating room to perform the above procedure to help heal her wound and relieve her from constant pain. The nature of the problem, anticipated procedures, postop recovery/convalences and risk/complications include but not limited to infection, wound healing complications, digital amputation, hypertrophic scarring, numbness, tingling, chronic pain, CRPS, over and under correction, recurrence of deformity, DVT and or PE and the need for further surgery have been discussed in great detail with the patient. All questions have been answered to the patient's satisfaction. There are no guarantees given as to the outcome of the procedure. Description of Procedure: Under mild sedation, the patient was brought into the operating room and placed on the operating table in supine position. Once the patient was under general anesthesia with laryngeal mask airway, the left lower extremity was blocked using approximately 20 cc 0.5% Marcaine plain. Next, a well-padded thigh tourniquet was applied to the left lower extremity. Next, the left lower extremity was prepped and draped in normal aseptic manner. Next, a timeout was then undertaken verifying the correct patient, extremity, visibility of preoperative markings, availability of the equipment. Next, attention was directed to the left lower extremity. Using a 4 inch Esmarch, left lower extremity was exsanguinated and elevated to 60 degrees for 1 minute. Procedure #1, endoscopic gastroc recession, left lower extremity Next, attention was directed to the left lower extermity. A silfverskiold test was performed on the operating table. There was evidence of a positive Silfverskiold test for gastrocnemius equinus. Next, attention was directed to the aponeurosis of the gastrocnemius muscle. A small stab incision was placed approximately 2 to 3 cm from the gastroc insertion. Using the [place] cat wagon operator the aponeurosis was bow strong and then advanced to the lateral aspect of the left lower extremity. Once tenting of the skin was identified a small stab incision was made with a 15 blade laterally. Using the Maxi obturator and cannula, it was advanced through both incisions. Using the [place] 30 degree 4- 0 millimeter scope there showed evidence of the aponeurosis of the gastrocnemius muscle. Using the rasp the muscle fibers/Sub Q were removed from the aponeurosis tissue. Using the [place] 30 degree 4-0 millimeter scope and combination of hook and triangle blade, careful incision across the aponeurosis was made half laterally then half medially until released. After release of the aponeurosis the ankle was put through range of motion with the knee extended as well as flexed and showed to be increased past 90 in both positions. Both incisions were flushed with copious amelie of warm saline. Procedure #2, removal of painful retained hardware, left foot Next, attention was directed to the left foot at the level of the first ray. Using a sterile skin marker the previous incision for the transmetatarsal amputation was marked out. Using a #15 blade a full-thickness incision down to bone on the dorsal medial aspect was carried out down and around to the level of the surgical neck of the fifth metatarsal. Continued blunt dissection was carried down to the level of the metatarsal heads. We hardware was identified on the first ray. The scar tissue was removed with a mesa elevator. Using the universal hardware removal set, all locking and nonlocking screws were removed from the first ray followed by the plate without incident. C-arm fluoroscopy was used to confirm that all hardware was removed. Remaining hardware was left intact to the second and third tarsometatarsal joint. Using a hand rasp all rough areas along the first ray were made smooth. The incision was flushed with copious amelie normal saline. Procedure #3, incision of bone cortex, left foot Next, attention was directed to the distal aspect of the first metatarsal which showed evidence of periosteal reaction. Using a sagittal saw and #111 blade incision of bone cortex was carried out at the level of the first, second, third, fourth and fifth metatarsal. There showed evidence of periosteal reaction to the distal aspect of the remaining first metatarsal. The removed first metatarsal was passed the back table to be into, half for pathology and the other half to be sent for microbiology culture and sensitivity. Additional bone was taken out of the medullary canal of the first metatarsal and sent in culture tubes for microbiology culture and sensitivity. Again, incision was flushed with copious months normal saline. All bleeders were ligated and cauterized as necessary. The left thigh tourniquet was deflated with reperfusion noted to the left lower extremity. Procedure #4, advancement flap closure, left foot Next, attention was directed to the excessive tissue from removal of the 1 through 5 metatarsals of the left foot. The dorsal skin was reconstructed/remodeled, the plantar skin was advanced and show excellent coaptation for advancement flap closure. Again the incision was flushed with copious normal saline. Following closure, application of antibiotic beads with tobramycin antibiotic powder were administered to the left foot. The deep tissue was reapproximated and closed with a combination of buried suture technique and running locking suture technique with 3-0 Vicryl. The skin was reapproximated and closed with retention suture using 3-0 nylon in simple interr upted suture technique with care not to place the knot on the flap. The remaining skin was reapproximated and closed with mahesh. Procedure #5, delayed primary closure, full-thickness ulceration plantar aspect, left foot Next, attention was directed to the plantar aspect of the left foot. There is evidence of a full-thickness ulceration. Using a 3-1 incision, the full- thickness ulceration was removed down to deep tissue. All bleeders were cauterized as necessary. 3-1 incision was flushed with copious amelie of normal saline. The skin was reapproximated and closed with 2-0 nylon in a simple interrupted suture technique. Next, attention was directed back to the level of the gastroc recession, the incision was flushed with copious normal saline. The skin was reapproximated and closed on both sides using 3-0 nylon in simple interrupted suture technique. Next, using Unitask via flow, 2 cc of via flow were administered to all incisions to the left lower extremity without incident. The left lower extremity was wiped clean and patted dry. All incisions were dressed with Betadine soaked Adaptic, dry sterile dressing and a double layer Paulino AO splint at 90 degrees was fashioned to the left lower extremity. The patient tolerated the procedure and anesthesia well and apparent satisfactory condition and was transported to the PACU for further monitoring prior to discharge home. Vital signs stable and vascular status intact to all digits bilateral. Post Operative Plan: Weightbearing: No weightbearing to left lower extremity. Full weightbearing to the right lower extremity. Antibiotics: 2 g Ancef through the IV DVT Prophylaxis: 81 mg aspirin Borrero: None Dressing: Betadine soaked Adaptic, dry sterile dressing, double layer Paulino AO splint at 90 degrees left lower extremity X-Rays: Post-operative films taken on the operating room. Pain Medication: Percocet 5/325, Flexeril 10 mg Follow-up: Patient will follow-up with Dr. Larsen in private office 1 week post discharge from surgery. Grafts/Implants Used: Unitask OsteoSet, via flow 2 cc Complications None Admit VTE Documentation VTE Present on Admission: No VTE Mechan Device Prophylaxis: SCD's VTE Pharm Prophylaxis ordered?: Yes
[2023-06-21 10:48] LABS: Bedside Glucose 200 mg/dL (74-106)
== END 2023-06-21 11:40 | disposition home or self-care (01) ==
LOC: SDC 06:14 → AC 06:14
PROVIDERS: Anesthesiology; PCP Internal Medicine; Referring Provider Podiatrist Foot & Ankle Surgery; Visit Provider Podiatrist Foot & Ankle Surgery
PROC: (CPT 20680; principal; 2023-06-21 07:45)
DX: T84.84XA Pain due to internal orthopedic prosthetic devices, implants and grafts, initial encounter (principal); E10.621 Type 1 diabetes mellitus with foot ulcer; Z89.439 Acquired absence of unspecified foot; L97.522 Non-pressure chronic ulcer of other part of left foot with fat layer exposed; M86.672 Other chronic osteomyelitis, left ankle and foot; E10.42 Type 1 diabetes mellitus with diabetic polyneuropathy; E10.319 Type 1 diabetes mellitus with unspecified diabetic retinopathy without macular edema; E21.3 Hyperparathyroidism, unspecified; Z79.4 Long term (current) use of insulin; E03.9 Hypothyroidism, unspecified; E55.9 Vitamin D deficiency, unspecified; F32.A Depression, unspecified; F41.9 Anxiety disorder, unspecified; E06.3 Autoimmune thyroiditis; I10 Essential (primary) hypertension; Z90.49 Acquired absence of other specified parts of digestive tract; Z96.41 Presence of insulin pump (external) (internal); Z98.51 Tubal ligation status; Y82.8 Other medical devices associated with adverse incidents
CPT/HCPCS: 20680; 29999; 14040; 13160; 01480; 36415; 73620; 76000; 82962; 83735; 87070; 87075; 87077; 87081; 87102; 87176; 87186; 87205; 87206; 88305; 88311; J7120; J2405; J3260; J3475

== ENCOUNTER → 2023-12-07 | Outpatient (CLI) | payer BC, SELFPAY ==
[2023-12-07 08:09] LABS: Absolute Lymphocyte Count 1.87 X10^3/uL (0.83-4.51); Absolute Neutrophil Count 3.8 X10^3/uL (2.0-7.7); Basophil# 0.07 X10^3/uL; Basophil% 1.1 % (0-1); Eosinophil# 0.12 X10^3/uL; Eosinophils% 1.9 % (0-5); Hematocrit 36.4 % (37-47); Hemoglobin 11.7 g/dL (12.0-15.0); Lymphocyte # 1.87 X10^3/ul (0.83-4.51); Lymphocyte % 29.4 % (19-41); Mean Corp Hgb Conc 32.1 g/dL (32-36); Mean Corpuscular Hgb 29.2 pg (27.0-32.0); Mean Corpuscular Volume 90.8 fL (81-99); Mean Platelet Vol. 10.9 fl (6.2-12.0); Monocyte# 0.47 X10^3/uL; Monocyte% 7.4 % (0-10); NRBC Flagged by Analyzer 0 % (0-5); Neutrophil % 59.6 % (47-70); Platelet Count 236 K/mm3 (150-450); RBC Distribution Width SD 42.7 fl (35.1-43.9); Red Blood Count 4.01 M/mm3 (4.2-5.4); White Blood Count 6.4 K/mm3 (4.4-11.0)
[2023-12-07 08:33] LABS: ALB/GLOB Ratio 0.9 RATIO (0.9-2.4); AST(SGOT) 15 U/L (15-37); Alanine Aminotransfer ALT/SGPT 22 U/L (13-56); Albumin, Serum 3.4 g/dL (3.2-5.0); Alkaline Phosphatase 91 U/L (45-117); Anion Gap 3 (5-15); BUN 15 mg/dL (7-18); BUN/Creat Ratio 20.9 RATIO (10-20); Calcium,Total 9.1 mg/dL (8.5-10.1); Chloride 108 mmol/L (98-107); Cholesterol 187 mg/dL (200); Creatinine, Serum 0.72 mg/dL (0.55-1.02); EST Glomerular Filtration Rate 89 mL/min (>60); Est Glom Filt Rate - Afr Amer 108 mL/min (>60); Globulin 3.8 g/dL (2.2-4.2); Glucose 121 mg/dL (74-106); High Density Lipoprotein 61 mg/dL; Potassium 4.6 mmol/L (3.5-5.1); Protein, Total 7.2 g/dL (6.4-8.2); Sodium Level 140 mmol/L (136-145); Triglycerides 76 mg/dL; Very Low Density Lipoprotein 15 mg/dL (5-40)
== END | disposition home or self-care (01) ==
LOC: LAB 06:59
PROVIDERS: PCP Internal Medicine; Referring Provider Internal Medicine; Visit Provider Internal Medicine
DX: I10 Essential (primary) hypertension (principal); E03.9 Hypothyroidism, unspecified
CPT/HCPCS: 36415; 80053; 80061; 84443; 85025

== ENCOUNTER 2024-02-06 12:12 | Emergency (ER) | payer BC, SELFPAY ==
[2024-02-06] VITALS (7 sets, daily range): BP systolic 109–125; BP diastolic 50–73; PULSE 64–87; RESP 14–22; TEMP 36–36.3; O2SAT 95–100; BMI 35.4; BMI 35.3
--- NOTE | 2024-02-06 13:36 | EX.ED.DYSGE1 ---
HPI History of Present Illness Chief Complaint: Neuro S/Sx Informant: patient Onset/Context/Timing Onset: Days (4) Context: Sudden Onset Timing: Continuous Quality: Numbness Location: Left upper and lower extremities Worsened by: Nothing Relieved by: Nothing Narrative Narrative: Patient presents with paresthesias to the left side of her body that have been constant for the last 4 days. Patient states it began rather suddenly. Patient admits to some numbness and tingling to her left upper and lower extremities. Patient denies any weakness. Patient states nothing makes it better and nothing makes it worse. Patient denies any slurred speech. Patient denies any difficulty ambulating. Patient denies any facial weakness. Patient denies any headaches. Patient does admit to some pain to the left lateral side of her neck. [facility] Medical History Colon cancer screening GERD (gastroesophageal reflux disease) Nausea Abdominal pain Wears glasses Anxiety Alcohol use Open wound Insulin dependent diabetes mellitus Uses wheelchair Dietary restriction Gastric reflux Non-smoker Shortness of breath on exertion Leg cramps History of edema Hypertension Preoperative evaluation to rule out surgical contraindication Health care maintenance Insomnia Skin picking habit Needs flu shot Breast cancer screening Anxiety and depression Obesity novasure History of endometrial biopsy bilat eye surgery great toe fusion Hyperparathyroidism open wound of toes Peripheral vascular disease of lower extremity Acute hematogenous osteomyelitis Hypothyroidism Hyperlipidemia Charcot's joint of left foot Peripheral neuropathy PVD (peripheral vascular disease) nonhealing plantar l foot wound Diabetic foot infection Diabetes type 1, controlled Home Medications ?Medication ?Instructions ?Recorded ?Last Taken ?Type insulin pump syringe 1.8 mL 01/23/18 Unknown History blood-glucose meter,continuous #1 ea 11/26/20 Unknown Rx (Dexcom G6 Olive Pitter) acetaminophen 325 mg tablet 650 mg (2 x 325 mg) PO Q4H PRN PRN 09/29/22 Unknown Rx Pain 1-10/Fever #0 tabs fluoxetine 40 mg capsule 40 mg PO BID depression, hot 11/14/22 02/06/24 Rx flashes #180 caps trazodone 50 mg tablet 25 mg (1/2 x 50 mg) PO QHS PRN 03/13/23 Unknown Rx insomnia #90 tabs hydroxyzine HCl 25 mg tablet 25 mg PO PRN PRN anxiety 04/18/23 Unknown History simvastatin 20 mg tablet 20 mg PO QHS 04/18/23 02/05/24 History insulin lispro 100 unit/mL 100 unit subcut .continuous #90 mL 05/16/23 Unknown Rx subcutaneous solution (Humalog U-100 Insulin) insulin pump cartridge,automated #1 ea 05/16/23 Unknown Rx dose,BT with controller subcutaneous (Omnipod 5 G6 Intro Kit (Gen 5) subcutaneous cartridge with controller) ondansetron 4 mg disintegrating 4 mg PO Q8H PRN nausea and 06/14/23 Unknown Rx tablet vomiting #60 tabs sucralfate 1 gram tablet (Carafate) 1 g PO QACHS 1 month #120 tabs 06/14/23 Unknown Rx ascorbic acid (vitamin C) 1,000 mg 1 g PO DAILY 90 days #90 tabs 06/21/23 02/06/24 Rx tablet (Vitamin C) aspirin 81 mg tablet,delayed 81 mg PO DAILY 30 days #30 tabs 06/21/23 02/06/24 Rx release calcium 500 mg (as 1 tab PO DAILY 90 days #90 tabs 06/21/23 02/06/24 Rx carbonate)-vitamin D3 15 mcg (600 unit) tablet (Os-Cirilo 500 + D3) levothyroxine 125 mcg tablet 125 mcg PO DAILY #90 tabs 09/19/23 02/06/24 Rx blood-glucose sensor (Dexcom G6 #9 ea 11/13/23 Unknown Rx Sensor device) blood-glucose transmitter (Dexcom #1 ea 11/13/23 Unknown Rx G6 Transmitter device) enalapril maleate 5 mg tablet 5 mg PO DAILY #90 tabs 12/18/23 02/06/24 Rx omeprazole 40 mg capsule,delayed 40 mg PO QDAY #90 caps 12/25/23 02/06/24 Rx release insulin pump cart,automated,BT #15 ea 01/25/24 Unknown Rx Allergy/AdvReac Type Severity Reaction Status Date / Time codeine AdvReac Vomiting Verified 02/06/24 13:10 Family History Mother Diabetes Father Diabetes Grandfather Diabetes Grandmother Diabetes Surgical History Hx of appendectomy S/P laparoscopic appendectomy S/P foot surgery, left Status post bilateral foot surgery Hx of tubal ligation Hx of adenoidectomy History of tonsillectomy Hx of section S/P transmetatarsal amputation of foot Social History Smoking Status: Never smoker second hand exposure: No alcohol intake: current substance use type: does not use caffeine: Yes ROS ROS ED Constitutional Constitutional ED: Denies chills or fever(s) Eyes Eyes: Denies blurry vision or change in vision ENT ENT ED: Denies rhinorrhea or sore throat Cardiovascular Cardiovascular: Denies chest pain or palpitations Respiratory/Chest Respiratory/Chest: Denies cough or dyspnea Gastrointestinal Gastrointestinal: Denies nausea or vomiting Genitourinary Genitourinary ED: Denies dysuria or hematuria Musculoskeletal Musculoskeletal: Reports neck pain; Denies back pain Integumentary Denies abscess or rash Neurologic Neurologic: Reports paresthesias LUE and LLE; Denies headache(s) or weakness Allergic/Immunologic Allergic/Immunologic ED: Denies mouth swelling or urticaria EXAM Physical Exam Const Vital Signs: 02/06/24 12:13 02/06/24 13:17 02/06/24 14:17 Temperature 96.8 F L Temperature Source Temporal Pulse Rate 87 81 75 Respiratory Rate 18 22 H 18 Blood Pressure 120/61 120/62 109/73 Blood Pressure Mean 80 81 85 Pulse Ox 100 96 97 Oxygen Delivery Method Room Air Room Air Room Air 02/06/24 15:00 Temperature Temperature Source Pulse Rate 75 Respiratory Rate 14 Blood Pressure 125/66 H Blood Pressure Mean 85 Pulse Ox 95 Oxygen Delivery Method Room Air Positive well nourished and well developed General Appearance ED: well developed and NAD HEENT Reports moist mucous membranes Neck supple and no JVD Resp normal respiratory effort and clear to auscultation bilaterally Cardio regular rate and regular rhythm GI non-tender and non-distended Palpation: soft Extremity normal to inspection General Extremety ED: Negative for edema or tenderness General Extremity: Negative for edema Neuro oriented x3, CN's II-XII intact bilaterally and no sensory deficits noted Sensorium / Orientation: alert Motor Exam: strength 5/5 throughout Psych mental status grossly normal MDM MDM MDM Narrative Medical decision making narrative: Differential diagnosis includes stroke, intracranial bleeding, electrolyte abnormality, peripheral neuropathy, and cervical radiculopathy, CT scan of the brain will be obtained to assess for intracranial bleeding and stroke. CBC will be obtained to assess for leukocytosis and anemia. Basic metabolic profile will be obtained to assess for electrolyte abnormality and renal function. PT with INR and PTT will be obtained to assess for coagulopathy. Urinalysis will be obtained to assess for urinary tract infection and hematuria. Lab Data Attestation: I reviewed the patient's lab results. Lab results narrative: CBC was reviewed. There is a mild anemia with a hemoglobin of 11.0 and hematocrit 33.9. Basic metabolic profile was reviewed and was essentially within normal limits. PT with INR and PTT were reviewed and were within normal limits. Urinalysis was reviewed. There is no evidence of urinary tract infection or hematuria. Labs: Laboratory Results - last 24 hr 02/06/24 02/06/24 14:26 15:52 WBC 7.5 RBC 3.78 L Hgb 11.0 L Hct 33.9 L MCV 89.7 MCH 29.1 MCHC 32.4 RDW Std Deviation 43.7 RDW Coeff of Frank 13.2 Plt Count 223 MPV 10.7 Immature Gran % (Auto) 0.500 Neut % (Auto) 60.9 Lymph % (Auto) 29.0 [place] % (Auto) 6.5 Eos % (Auto) 2.0 Baso % (Auto) 1.1 H Absolute Neuts (auto) 4.6 Absolute Lymphs (auto) 2.17 Nucleated RBC % 0 PT 12.3 INR 0.9 APTT 24.3 Sodium 139 Potassium 4.3 Chloride 109 H Carbon Dioxide 25.0 Anion Gap 5 BUN 16 Creatinine 0.72 Estim Creat Clear Calc 96.66 Est GFR (MDRD) Af Amer 107 Est GFR (MDRD) Non-Af 89 BUN/Creatinine Ratio 22.1 H Glucose 124 H Calcium 8.5 Urine Color Yellow Urine Clarity Clear Urine pH 6.0 Ur Specific [place] 1.015 Urine Protein 15 H Urine Glucose (UA) Normal Urine Ketones Negative Urine Occult Blood Negative Urine Nitrite Negative Urine Bilirubin Negative Urine Urobilinogen 1 H Ur Leukocyte Esterase 25 H Urine RBC 0 SEEN Urine WBC 0 SEEN Ur Squamous Epith Cells 0-5 SEEN Urine Bacteria 1+ Urine Mucus 1+ Radiography Diagnostic Testing: Clinical Impression(s) from Imaging Studies Brain CT 02/06/24 13:52 IMPRESSION: Abnormal nonfunctioning left orbital globe otherwise negative noncontrast CT head scan. Electronically Signed: Charles Dozier MD at 15:05 EDT , CT scan of the brain was obtained. There is an opacification of the left orbital globe. There is no acute intracranial abnormality noted. This was interpreted by the radiologist and was also independently reviewed by myself. Treatment and Re-Evaluation :: Currently, patient has a NIH scale of 0. Because of this and because of the fact that her symptoms have been present for 4 days, I do not feel that this required activation of the stroke alert team. Patient was feeling better on reevaluation. Patient was advised of her findings. Since the symptoms have been present for the last 4 days, I do not feel this is from an acute stroke. Patient was instructed to follow-up with her primary care physician in 5 to 7 days for further evaluation. Patient understood and was agreeable with the plan. All questions were answered. Discharge Plan Triage Chief Complaint: Neuro S/Sx ED Provider: Marco A Larry Dx/Rx/DC Orders Clinical Impression: Paresthesias, Diabetes mellitus type I Instructions: ED Paraesthesias Prescriptions: No Action insulin lispro [Humalog U-100 Insulin] 100 unit/mL solution 100 unit SC .continuous Qty: 90 1RF Rx Instructions: viaInsulin Pump (DME) Omnipod 5 G6 Intro Kit (Gen 5) Cartridge See Rx Instructions .Route Qty: 1 0RF Rx Instructions: As directed trazodone 50 mg tablet 25 mg PO QHS PRN (Reason: insomnia) Qty: 90 1RF levothyroxine 125 mcg tablet 125 mcg PO DAILY Qty: 90 3RF sucralfate [Carafate] 1 gram tablet 1 g PO QACHS 30 Days Qty: 120 1RF ondansetron 4 mg tablet,disintegrating 4 mg PO Q8H PRN (Reason: nausea and vomiting) Qty: 60 1RF (DME) insulin pump cart,automated,BT Cartridge See Rx Instructions .Route Qty: 15 5RF Rx Instructions: 1 pod q 48-72 hr (DME) insulin pump syringe 1 EACH misc 1 ea MC CONT acetaminophen 325 mg Tablet 650 mg PO Q4H PRN PRN (Reason: Pain 1-10/Fever) Qty: 0 0RF simvastatin 20 mg tablet 20 mg PO QHS Rx Instructions: TAKE 1 TABLET BY MOUTH AT BEDTIME hydroxyzine HCl 25 mg tablet 25 mg PO PRN PRN (Reason: anxiety) Rx Instructions: TAKE 1 TABLET BY MOUTH TWICE A DAY FOR NEEDED FOR ITCHING ascorbic acid (vitamin C) [Vitamin C] 1,000 mg tablet 1 g PO DAILY 90 Days Qty: 90 0RF aspirin 81 mg tablet,delayed release (DR/EC) 81 mg PO DAILY 30 Days Qty: 30 0RF calcium carbonate-vitamin D3 [Os-Cirilo 500 + D3] 500 mg-15 mcg (600 unit) tablet 1 tab PO DAILY 90 Days Qty: 90 0RF (DME) Dexcom G6 Olive Pitter Misc See Rx Instructions .ROUTE .MEDSUPPLY Qty: 1 0RF Rx Instructions: As directed fluoxetine 40 mg capsule 40 mg PO BID Qty: 180 3RF (DME) Dexcom G6 Sensor Device See Rx Instructions .ROUTE .MEDSUPPLY Qty: 9 3RF Rx Instructions: change every 10 days (DME) Dexcom G6 Transmitter Device See Rx Instructions .ROUTE .MEDSUPPLY Qty: 1 3RF Rx Instructions: As directed enalapril maleate 5 mg tablet 5 mg PO DAILY Qty: 90 1RF Rx Instructions: TAKE 1 TABLET BY MOUTH EVERY DAY omeprazole 40 mg capsule,delayed release(DR/EC) 40 mg PO QDAY Qty: 90 1RF Primary Care Provider: Arjun Steele Referrals: Arjun Steele MD [Primary Care Provider] - 5-7 Days Print Language: Citizen Of [place] Disposition Disposition: Home, Self Care
--- NOTE | 2024-02-06 13:52 | CT_ITS ---
EXAM: CT HEAD WITHOUT INTRAVENOUS CONTRAST CLINICAL INDICATION: Paresthesias TECHNIQUE: Multiple axial images were obtained of the head without intravenous contrast. This CT exam was performed using one or more of the following dose reduction techniques: automated exposure control, adjustment of the mA and/or kV according to patient size, and/or use of iterative reconstruction technique. RADIATION DOSE: CTDIvol = 47.06 mGy, DLP = 837.39 mGy-cm COMPARISON: No relevant prior studies available. FINDINGS: BRAIN AND EXTRA-AXIAL SPACES: Unremarkable. No intra- or extra-axial hemorrhage. No evidence of acute infarct. No intracranial mass or mass effect. There is preservation of the arriola/white matter interface. Posterior fossa structures are unremarkable. Ventricles are appropriate for age. No hydrocephalus. Basal cisterns are patent. BONES/JOINTS: Unremarkable. No discrete lytic or blastic abnormalities. SINUSES: Unremarkable as visualized. Clear. MASTOID AIR CELLS: Unremarkable. Clear. ORBITS: Abnormal hyperdense left orbital globe with crescentic fluid level is nonfunctioning. Normal right orbital globe. CT/Brain/Head without Contrast IMPRESSION: Abnormal nonfunctioning left orbital globe otherwise negative noncontrast CT head scan. Electronically Signed: Charles Dozier MD at 15:05 EDT ,
[2024-02-06 14:36] LABS: Absolute Lymphocyte Count 2.17 X10^3/uL (0.83-4.51); Absolute Neutrophil Count 4.6 X10^3/uL (2.0-7.7); Basophil# 0.08 X10^3/uL; Basophil% 1.1 % (0-1); Eosinophil# 0.15 X10^3/uL; Hematocrit 33.9 % (37-47); Lymphocyte # 2.17 X10^3/ul (0.83-4.51); Mean Corp Hgb Conc 32.4 g/dL (32-36); Mean Corpuscular Hgb 29.1 pg (27.0-32.0); Mean Corpuscular Volume 89.7 fL (81-99); Mean Platelet Vol. 10.7 fl (6.2-12.0); Monocyte# 0.49 X10^3/uL; Monocyte% 6.5 % (0-10); NRBC Flagged by Analyzer 0 % (0-5); Neutrophil # 4.56 X10^3/uL (2.7-7.7); Neutrophil % 60.9 % (47-70); Platelet Count 223 K/mm3 (150-450); RBC Distribution Width CV 13.2 % (11.6-14.6); RBC Distribution Width SD 43.7 fl (35.1-43.9); Red Blood Count 3.78 M/mm3 (4.2-5.4); White Blood Count 7.5 K/mm3 (4.4-11.0)
[2024-02-06 14:51] LABS: Anion Gap 5 (5-15); BUN 16 mg/dL (7-18); BUN/Creat Ratio 22.1 RATIO (10-20); Calcium,Total 8.5 mg/dL (8.5-10.1); Chloride 109 mmol/L (98-107); Creatinine, Serum 0.72 mg/dL (0.55-1.02); EST Glomerular Filtration Rate 89 mL/min (>60); Est Glom Filt Rate - Afr Amer 107 mL/min (>60); Estimated Creatinine Clearance 96.66 ml/min; Glucose 124 mg/dL (74-106); Potassium 4.3 mmol/L (3.5-5.1); Sodium Level 139 mmol/L (136-145)
[2024-02-06 14:55] LABS: International Normalized Ratio 0.9; Prothrombin Time (Protime)PT. 12.3 SECONDS (11.7-14.9)
[2024-02-06 14:56] LABS: Partial Thromboplast Time 24.3 Seconds (24.1-36.2)
[2024-02-06 16:01] LABS: Red Blood Cells-Urine 0 SEEN /hpf (0-5); White Blood Cells 0 SEEN /hpf (0-5)
[2024-02-06 16:25] LABS: Color, Urine Yellow (Yellow); Glucose, Dipstick Normal (Normal); Ketone-Dipstick Negative (Negative); Leukocyte Esterase-Dipstick 25 /ul (Negative); Nitrite-Dipstick Negative (Negative); Occult Blood-Urine Negative /ul (Negative); Protein-Dipstick 15 mg/dl (Negative); Specific Gravity, Urine 1.015 (1.002-1.030); Urine Bilirubin Dipstick Negative (Negative); Urine Clarity Clear (Clear); Urine Urobilinogen 1 mg/dl (Normal)
[2024-02-06 16:34] LABS: Bacteria 1+ /hpf (None Seen); Mucous, Urine 1+ /hpf (<or=2+); Squamous Epithelial Cells - UA 0-5 SEEN /hpf (5-10)
== END 2024-02-06 17:05 | disposition home or self-care (01) ==
PROVIDERS: Emergency Provider Emergency Medicine; PCP Internal Medicine; Visit Provider Emergency Medicine
DX: R20.2 Paresthesia of skin (principal); E10.42 Type 1 diabetes mellitus with diabetic polyneuropathy; E10.51 Type 1 diabetes mellitus with diabetic peripheral angiopathy without gangrene; Z79.4 Long term (current) use of insulin; M54.2 Cervicalgia; I10 Essential (primary) hypertension; E78.5 Hyperlipidemia, unspecified; E03.9 Hypothyroidism, unspecified; Z79.82 Long term (current) use of aspirin; Z79.890 Hormone replacement therapy; Z79.899 Other long term (current) drug therapy
CPT/HCPCS: 70450; 80048; 81001; 85025; 85610; 85730; 99284; A4216

== ENCOUNTER → 2024-07-25 | Outpatient (CLI) | payer BC, SELFPAY ==
[2024-07-25 13:16] LABS: Microalbumin,Random Urine 13.7 mg/L (NO RANGE EST.); Microalbumin:Creatinine Ratio 100.7 mg/g CRE
== END | disposition home or self-care (01) ==
LOC: MFPLAB 08:41
PROVIDERS: PCP Internal Medicine; Visit Provider Internal Medicine Endocrinology, Diabetes & Metabolism
DX: E10.65 Type 1 diabetes mellitus with hyperglycemia (principal); E10.3553 Type 1 diabetes mellitus with stable proliferative diabetic retinopathy, bilateral; Z68.43 Body mass index [BMI] 50.0-59.9, adult; E10.42 Type 1 diabetes mellitus with diabetic polyneuropathy; Z79.4 Long term (current) use of insulin; Z96.41 Presence of insulin pump (external) (internal); E03.8 Other specified hypothyroidism; E06.3 Autoimmune thyroiditis; I10 Essential (primary) hypertension; E66.09 Other obesity due to excess calories
CPT/HCPCS: 82043; 82570

== ENCOUNTER 2024-08-05 07:03 | Emergency (ER) | payer BC, SELFPAY ==
[2024-08-05] VITALS (7 sets, daily range): BP systolic 117–143; BP diastolic 49–83; PULSE 78–85; RESP 12–20; TEMP 36.4–37; O2SAT 96–100; BMI 35.9
--- NOTE | 2024-08-05 07:35 | EKG12_ITS ---
Test Reason : Blood Pressure : */* mmHG Vent. Rate : 85 BPM Atrial Rate : 85 BPM P-R Int : 140 ms QRS Dur : 80 ms QT Int : 376 ms P-R-T Axes : 46 -21 20 degrees QTcB Int : 447 ms Normal sinus rhythm Low voltage QRS Borderline ECG Confirmed by OSORIO QUINTANA, JOY ([id number]), magazine editor SULEIMAN CANO ([id number]) on 08/07/2024 11:44:02 AM Referred By: Confirmed By: JOY AC MD
--- NOTE | 2024-08-05 07:47 | ED.RN ---
Poked pt 3 times for IV without success.
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
--- NOTE | 2024-08-05 08:35 | RAD_ITS ---
PROCEDURE: CHEST 1 VIEW (PORTABLE) 08/05/2024 REASON FOR EXAM: CHEST PAIN TECHNIQUE: Frontal view of the chest. COMPARISON: 11/30/2021 FINDINGS: The lungs appear clear. Pulmonary vascularity appears within limits. No pleural effusion identified. The cardiac and mediastinal contours appear within limits. The visualized osseous structures appear within limits. RAD/Chest 1 View (Portable) IMPRESSION: No evidence of acute disease. Reading Location: [id number]
[2024-08-05] MEDS: Lorazepam 2 MG/ML WCH Syringe 0.5 MG IV (08:40)
[2024-08-05] MEDS: Ketorolac 15 MG/ML Vial IV (08:40)
[2024-08-05 08:58] LABS: Absolute Lymphocyte Count 1.75 X10^3/uL (0.83-4.51); Absolute Neutrophil Count 5.3 X10^3/uL (2.0-7.7); Basophil# 0.07 X10^3/uL; Basophil% 0.9 % (0-1); Eosinophil# 0.16 X10^3/uL; Hematocrit 34.8 % (37-47); Hemoglobin 11.6 g/dL (12.0-15.0); Lymphocyte # 1.75 X10^3/ul (0.83-4.51); Lymphocyte % 22.3 % (19-41); Mean Corp Hgb Conc 33.3 g/dL (32-36); Mean Corpuscular Hgb 29.4 pg (27.0-32.0); Mean Corpuscular Volume 88.1 fL (81-99); Mean Platelet Vol. 10.8 fl (6.2-12.0); Monocyte# 0.49 X10^3/uL; Monocyte% 6.3 % (0-10); NRBC Flagged by Analyzer 0 % (0-5); Neutrophil # 5.32 X10^3/uL (2.7-7.7); Platelet Count 233 K/mm3 (150-450); RBC Distribution Width CV 12.9 % (11.6-14.6); RBC Distribution Width SD 41.6 fl (35.1-43.9); Red Blood Count 3.95 M/mm3 (4.2-5.4); White Blood Count 7.8 K/mm3 (4.4-11.0)
[2024-08-05 09:14] LABS: D-Dimer Quantitative (DVT/PE) 0.53 FEU/ug/m (0.27-0.49)
[2024-08-05 09:28] LABS: Anion Gap 11 (5-15); BUN 13 mg/dL (4-19); BUN/Creat Ratio 16.5 RATIO (10-20); Carbon Dioxide 21.9 mmol/L (21.0-32.0); Chloride 108 mmol/L (98-108); EST Glomerular Filtration Rate 87 (>60); Estimated Creatinine Clearance 87.79 ml/min (50-250); Glucose 135 mg/dL (70-99); Potassium 4.1 mmol/L (3.3-5.1); Sodium Level 141 mmol/L (133-145); Troponin T High Sensitivity 10 ng/L (<=14)
[2024-08-05 11:21] LABS: Troponin T High Sens 2 HR 9 ng/L (<=14)
== END 2024-08-05 12:16 | disposition home or self-care (01) ==
PROVIDERS: Emergency Provider Emergency Medicine; PCP Internal Medicine; Visit Provider Emergency Medicine
DX: R07.9 Chest pain, unspecified (principal); E10.42 Type 1 diabetes mellitus with diabetic polyneuropathy; I10 Essential (primary) hypertension; E78.00 Pure hypercholesterolemia, unspecified; M54.6 Pain in thoracic spine; Z79.890 Hormone replacement therapy; E03.9 Hypothyroidism, unspecified; E66.9 Obesity, unspecified
CPT/HCPCS: 71045; 80048; 84484; 85025; 85379; 93005; 96374; 96375; 99284; A4216

== ENCOUNTER → 2024-12-13 | Outpatient (CLI) | payer BC, SELFPAY ==
--- NOTE | 2024-12-13 07:15 | BI_ITS ---
EXAM: SCRN MAMM (CAD)W/BAILEY BILAT DATE: 12/13/2024 CLINICAL HISTORY: F, Age 59 y/o , BREAST CANCER SCREENING TECHNIQUE: Procedure Code: [id number] Modality: MG Procedure: SCRN MAMM (CAD)W/BAILEY BILAT COMPARISON: Prior exam(s) dated 09/13/2021. FINDINGS: TISSUE DENSITY: There are scattered areas of fibroglandular density. Bilateral Breast Mammographic Findings: No significant masses, calcifications or other abnormalities are identified. BI/SCRN MAMM (CAD)W/BAILEY BILAT IMPRESSION: There is no mammographic evidence of malignancy. OVERALL FINAL ASSESSMENT BI-RADS 1: NEGATIVE. RECOMMENDATION: Routine annual follow-up in 1 Year A letter with findings and recommendations will be mailed to the patient. Reading Location: [id number]
--- NOTE | 2024-12-13 07:31 | RAD_ITS ---
PROCEDURE: KNEE 4 OR MORE VIEWS 12/13/2024 REASON FOR EXAM: BILATERAL KNEE PAIN TECHNIQUE: Procedure Code: RADKN Modality: DX Procedure: KNEE 4 OR MORE VIEWS Laterality: Left COMPARISON: None FINDINGS: There is mild medial compartment joint space narrowing. There is no acute fracture or dislocation. Soft tissues are within normal limits. RAD/Knee 4 or More Views IMPRESSION: Minimal medial compartment joint space narrowing. Reading Location: [facility]
--- NOTE | 2024-12-13 07:35 | RAD_ITS ---
PROCEDURE: HIP, UNI W/ PELVIS 2-3 VIEWS 12/13/2024 REASON FOR EXAM: LEFT HIP PAIN TECHNIQUE: Procedure Code: RAD Modality: DX Procedure: HIP, UNI W/ PELVIS 2-3 VIEWS Laterality: Left COMPARISON: None FINDINGS: The pelvis is intact. Mild hip joint space narrowing is noted, [id number]. Symphysis pubis and sacroiliac joints are unremarkable. There is no acute fracture or dislocation noted. Atherosclerotic vascular calcifications are present. RAD/HIP, UNI W/ Pelvis 2-3 Views IMPRESSION: Mild degenerative changes. No acute fracture or dislocation. Reading Location[facility]
--- NOTE | 2024-12-13 07:45 | RAD_ITS ---
PROCEDURE: KNEE 4 OR MORE VIEWS 12/13/2024 REASON FOR EXAM: BILATERAL KNEE PAIN TECHNIQUE: Procedure Code: RADKN Modality: DX Procedure: KNEE 4 OR MORE VIEWS Laterality: COMPARISON: None FINDINGS: There is no acute fracture or dislocation. Alignment is unremarkable. No significant joint fluid. Soft tissues are unremarkable. RAD/Knee 4 or More Views IMPRESSION: No significant abnormality. Reading Location: [facility]
== END | disposition home or self-care (01) ==
LOC: OPBI 07:07
PROVIDERS: PCP Internal Medicine; Referring Provider Internal Medicine; Visit Provider Internal Medicine
DX: Z12.31 Encounter for screening mammogram for malignant neoplasm of breast (principal); M25.552 Pain in left hip; M25.561 Pain in right knee; M25.562 Pain in left knee
CPT/HCPCS: 73502; 73564; 77063; 77067

== ENCOUNTER → 2025-02-28 | Outpatient (CLI) | payer BC, SELFPAY ==
[2025-02-28 10:25] LABS: Hematocrit 36.8 % (37-47); Hemoglobin 12.2 g/dL (12.0-15.0); Immature Granulocytes Count 0.020 X10^3/uL (0.0-0.0); Mean Corp Hgb Conc 33.2 g/dL (32-36); Mean Corpuscular Volume 87.0 fL (81-99); Mean Platelet Vol. 11.6 fl (6.2-12.0); NRBC Flagged by Analyzer 0 % (0-5); Platelet Count 251 K/mm3 (150-450); RBC Distribution Width CV 13.2 % (11.6-14.6); RBC Distribution Width SD 41.4 fl (35.1-43.9); Red Blood Count 4.23 M/mm3 (4.2-5.4); White Blood Count 7.0 K/mm3 (4.4-11.0)
[2025-02-28 11:09] LABS: AST(SGOT) 18 U/L (<=31); Alanine Aminotransfer ALT/SGPT 15 U/L (<=34); Albumin, Serum 4.2 g/dL (3.5-5.0); Alkaline Phosphatase 99 U/L (35-104); Anion Gap 12 (5-15); BUN 17 mg/dL (4-19); BUN/Creat Ratio 24.3 RATIO (10-20); Calcium,Total 9.2 mg/dL (7.6-11.0); Carbon Dioxide 22.4 mmol/L (21.0-32.0); Chloride 104 mmol/L (98-108); Cholesterol 196 mg/dL (<=200); Globulin 3.1 g/dL (2.2-4.2); Glucose 144 mg/dL (70-99); Low Density Lipoprotein Calc. 122 mg/dL; Potassium 4.3 mmol/L (3.3-5.1); Triglycerides 84 mg/dL; Very Low Density Lipoprotein 17 mg/dL (5-40); cholesterol:hdl ratio screen 3.35
== END | disposition home or self-care (01) ==
LOC: MTLAB 09:12
PROVIDERS: PCP Internal Medicine; Referring Provider Internal Medicine; Visit Provider Internal Medicine
DX: I10 Essential (primary) hypertension (principal)
CPT/HCPCS: 36415; 80053; 80061; 85025

== ENCOUNTER 2025-03-13 13:10 | Inpatient (IN) | payer BC, SELFPAY ==
[2025-03-13] VITALS (7 sets, daily range): BP systolic 134–145; BP diastolic 62–68; PULSE 98–103; RESP 16–22; TEMP 36.9–37.3; O2SAT 94–99; BMI 36.2; BMI 36.3
--- NOTE | 2025-03-13 13:37 | EKG12_ITS ---
Test Reason : Blood Pressure : */* mmHG Vent. Rate : 98 BPM Atrial Rate : 98 BPM P-R Int : 172 ms QRS Dur : 84 ms QT Int : 356 ms P-R-T Axes : 66 -5 25 degrees QTcB Int : 454 ms Normal sinus rhythm Nonspecific ST and T wave abnormality Abnormal ECG Confirmed by CHARI QUINTANA, COURTNEY ([id number]), slot editor SULEIMAN CANO ([id number]) on 03/14/2025 9:13:16 AM Referred By: Confirmed By: COURTNEY MARCELINO MD
--- NOTE | 2025-03-13 13:40 | EX.ED.DYSGE1 ---
HPI History of Present Illness Chief Complaint: Wound Informant: patient Onset/Context/Timing Onset: Days Context: Gradual Onset Timing: Continuous Current Severity: Mild Maximum Severity: Mild Narrative Narrative: 39-year-old female history diabetes hypothyroidism. Complaining of right lateral ankle swelling and wound on the lateral malleolus. Has lost her toes on her left foot due to diabetic foot infections. States she has had some nausea and vomiting. She just has not felt well since Monday. Complaining of body aches. No dysuria. No fever. Recent Illness/Hospitalization: No PFSH PFSH Medical History Chronic back pain Trigger finger Left hip pain Chest pain, atypical Anemia Flatulence Bilateral knee pain Colon cancer screening GERD (gastroesophageal reflux disease) Nausea Abdominal pain Wears glasses Anxiety Alcohol use Open wound Insulin dependent diabetes mellitus Uses wheelchair Dietary restriction Gastric reflux Non-smoker Shortness of breath on exertion Leg cramps History of edema Hypertension Preoperative evaluation to rule out surgical contraindication Health care maintenance Insomnia Skin picking habit Needs flu shot Breast cancer screening Anxiety and depression Obesity novasure bilat eye surgery great toe fusion Hyperparathyroidism open wound of toes Peripheral vascular disease of lower extremity Acute hematogenous osteomyelitis Hypothyroidism Hyperlipidemia Charcot's joint of left foot Peripheral neuropathy PVD (peripheral vascular disease) nonhealing plantar l foot wound Diabetic foot infection Diabetes type 1, controlled Home Medications ?Medication ?Instructions ?Recorded ?Last Taken ?Type insulin pump syringe 1.8 mL 01/23/18 Unknown History acetaminophen 325 mg tablet 650 mg (2 x 325 mg) PO Q4H PRN PRN 09/29/22 Unknown Rx Pain 1-10/Fever #0 tabs trazodone 50 mg tablet 25 mg (1/2 x 50 mg) PO QHS PRN 03/13/23 Unknown Rx insomnia #90 tabs hydroxyzine HCl 25 mg tablet 25 mg PO PRN PRN anxiety 04/18/23 Unknown History simvastatin 20 mg tablet 20 mg PO QHS 04/18/23 02/05/24 History ondansetron 4 mg disintegrating 4 mg PO Q8H PRN nausea and 06/14/23 Unknown Rx tablet vomiting #60 tabs ascorbic acid (vitamin C) 1,000 mg 1 g PO DAILY 90 days #90 tabs 06/21/23 02/06/24 Rx tablet (Vitamin C) aspirin 81 mg tablet,delayed 81 mg PO DAILY 30 days #30 tabs 06/21/23 02/06/24 Rx release calcium 500 mg (as 1 tab PO DAILY 90 days #90 tabs 06/21/23 02/06/24 Rx carbonate)-vitamin D3 15 mcg (600 unit) tablet (Os-Cirilo 500 + D3) levothyroxine 125 mcg tablet 125 mcg PO DAILY #90 tabs 07/25/24 Unknown Rx naproxen 500 mg tablet 500 mg PO BID PRN #20 tabs 08/05/24 Unknown Rx omeprazole 40 mg capsule,delayed 40 mg PO QDAY #90 caps 09/16/24 Unknown Rx release insulin lispro 100 unit/mL 100 unit subcut .continuous #90 mL 12/03/24 Unknown Rx subcutaneous solution (Humalog U-100 Insulin) insulin pump cart,auto,BT,G6/7 #15 ea 12/11/24 Unknown Rx (Omnipod 5 G6-G7 Pods (Gen 5) subcutaneous cartridge) enalapril maleate 5 mg tablet 5 mg PO DAILY #90 tabs 12/16/24 Unknown Rx duloxetine 30 mg capsule,delayed 30 mg PO BID #60 caps 02/04/25 Unknown Rx release blood-glucose sensor (Dexcom G7 #9 ea 02/24/25 Unknown Rx Sensor device) buspirone 5 mg tablet 5 mg PO TID #90 tabs 03/03/25 Unknown Rx Allergy/AdvReac Type Severity Reaction Status Date / Time codeine AdvReac Vomiting Verified 03/13/25 13:12 Family History Mother Diabetes Father Diabetes Grandfather Diabetes Grandmother Diabetes Surgical History History of endometrial biopsy Hx of appendectomy S/P laparoscopic appendectomy S/P foot surgery, left Status post bilateral foot surgery Hx of tubal ligation Hx of adenoidectomy History of tonsillectomy Hx of section S/P transmetatarsal amputation of foot Social History Smoking Status: Never smoker second hand exposure: No alcohol intake: current substance use type: does not use caffeine: Yes ROS ROS ED ROS Narrative Body aches. Feels unwell. Right ankle wound with swelling and redness. Constitutional Constitutional ED: Denies chills or fever(s) Eyes Eyes: Denies blurry vision ENT ENT ED: Denies ear pain Cardiovascular Cardiovascular: Denies chest pain Respiratory/Chest Respiratory/Chest: Denies cough or dyspnea Gastrointestinal Gastrointestinal: Reports diarrhea, nausea and vomiting; Denies abdominal pain Genitourinary Genitourinary ED: Denies dysuria or hematuria Musculoskeletal Musculoskeletal: Reports arthralgias and myalgias Integumentary Reports rash; Denies abscess or Abrasions Neurologic Neurologic: Denies headache(s) Psychiatric Psychiatric: Denies anxiety or depression Endocrine Endocrinology: Denies cold intolerance Hematologic/Lymphatic Hematologic/Lymphatic: Reports none Allergic/Immunologic Allergic/Immunologic ED: Denies mouth swelling, tongue swelling or urticaria EXAM Physical Exam Narrative Exam Narrative: 59-year-old female sitting upright in bed vital signs stable afebrile. Does not look septic or toxic. Pulse ox 90% on room air no hypoxia. Santos member bedside. H EENT exam pupils round react light. Moist mucous membranes. Neck nontender no JVD. No lymphadenopathy. No meningismus. Back nontender. Lungs clear to auscultation bilaterally. Heart tachycardic 103 no murmur. Chest wall and ribs nontender. Abdomen soft nontender. No peritoneal signs. Moving all 4 extremities. Left foot all the toes have been amputated. She is mild edema left lower extremity. Right foot and ankle swelling there is a wound on the right lateral malleolus consistent with a diabetic ulcer. Mildly red. She has edema in her right lower extremity is pitting. There is no lymphangitic streaking. Mild cellulitis around the wound. There is no inguinal lymphadenopathy. No signs of septic joint. Neurologically she is awake alert. She does have neuropathies in her feet. She is answering questions following commands. Const Vital Signs: 03/13/25 13:11 03/13/25 14:17 Temperature 98.4 F 98.8 F Temperature Source Oral Oral Pulse Rate 103 H 98 Respiratory Rate 22 H 19 H Blood Pressure 145/68 H 134/63 H Blood Pressure Mean 93 86 Pulse Ox 98 98 Oxygen Delivery Method Room Air Room Air MDM MDM MDM Narrative Medical decision making narrative: 59-year-old diabetic female suspect diabetic right ankle wound with cellulitis and infection. Screening labs and x-ray will be obtained. She will be started on IV Unasyn. Most likely will need to be admitted. She is seen by a local center director lead teacher before. Repeat exam around 3:27 PM patient doing well. She has already received her IV antibiotics. Patient is already been seen by the center director lead teacher. He took wound cultures. She may have infection of the hardware. The hospitalist on page for admission. Patient I discussed her test results, admission and plan. History & Record Review Discussion w/independent historian: Patient and Family Additional record(s) reviewed:: Prior outpatient record, Prior ED visit and Prior labs Lab Data Attestation: I reviewed the patient's lab results. Lab results narrative: CBC showed a white 11.2 H&H 10 and 30. Platelets 200. Electrolytes show a gap of 13 normal BUN of 12 creatinine 0.7. Glucose 132. C-reactive protein is 92. Right ankle x-ray shows chronic changes. Old hardware. Mild soft tissue swelling. Labs: Laboratory Results - last 24 hr 03/13/25 14:06 WBC 11.2 H RBC 3.48 L Hgb 10.1 L Hct 30.9 L MCV 88.8 MCH 29.0 MCHC 32.7 RDW Std Deviation 42.4 RDW Coeff of Frank 13.0 Plt Count 200 MPV 10.9 ESR 34 H Sodium 135 Potassium 4.1 Chloride 102 Carbon Dioxide 20.7 L Anion Gap 13 BUN 12 Creatinine 0.72 Estim Creat Clear Calc 96.76 Est GFR (MDRD) Non-Af 97 BUN/Creatinine Ratio 16.1 Glucose 132 H Calcium 8.9 C-React Prot Ext Range 92.00 H Radiography Diagnostic Testing: Clinical Impression(s) from Imaging Studies Ankle X-Ray 03/13/25 14:08 IMPRESSION: Prior ORIF of the distal tibia and fibula as described. Diffuse soft tissue swelling more prominent on the lateral aspect. Reading Location: [id number] Right ankle x-ray, 3 views, interpreted by myself shows soft tissue swelling. No acute fracture. No dislocation. Old orthopedic hardware. Also read and agreed by the radiologist. Rhythm Strip Rhythm Strip: Sinus Rhythm Rate: 98 Ectopy: None EKG Initial EKG: Attestation: I personally reviewed and interpreted this EKG as follows: Interpretation: Sinus Rhythm and No Acute Injury Pattern Comments: Normal sinus rhythm rate of 98 no acute signs of ID or ischemia. Discharge Plan Dx/Rx/DC Orders Clinical Impression: Diabetic foot infection, History of diabetes mellitus Disposition Disposition: Acute Care Hospital [facility]
--- NOTE | 2025-03-13 14:08 | RAD_ITS ---
PROCEDURE: ANKLE MIN 3 VIEWS 03/13/2025 REASON FOR EXAM: RT ANKLE CELLULITIS AND WOUND TECHNIQUE: Procedure Code: RADANK Modality: DX Procedure: ANKLE MIN 3 VIEWS Laterality: Right ankle COMPARISON: None FINDINGS: Bones: Patient is status post ORIF of the distal fibula and medial malleolus of the distal tibia. No acute fracture seen. Joints: Normal alignment. Mild degenerative changes. Soft tissues: Diffuse soft tissue swelling worse on the lateral aspect. Other: RAD/Ankle min 3 Views IMPRESSION: Prior ORIF of the distal tibia and fibula as described. Diffuse soft tissue swelling more prominent on the lateral aspect. Reading Location: [place] [id number]
[2025-03-13] MEDS: Ampicillin/Sulbactam 3 GM in 0.9% Normal Saline (100mL MB+) 100 ML IV (14:09)
[2025-03-13 14:17] LABS: Hematocrit 30.9 % (37-47); Hemoglobin 10.1 g/dL (12.0-15.0); Mean Corp Hgb Conc 32.7 g/dL (32-36); Mean Corpuscular Volume 88.8 fL (81-99); Mean Platelet Vol. 10.9 fl (6.2-12.0); Platelet Count 200 K/mm3 (150-450); RBC Distribution Width CV 13.0 % (11.6-14.6); RBC Distribution Width SD 42.4 fl (35.1-43.9); Red Blood Count 3.48 M/mm3 (4.2-5.4); White Blood Count 11.2 K/mm3 (4.4-11.0)
--- NOTE | 2025-03-13 14:23 | ED.RN ---
unable to get computer in room 20 to work. morphine 2 mg wasted with lexus acevedo
[2025-03-13 14:42] LABS: Anion Gap 13 (5-15); BUN 12 mg/dL (4-19); BUN/Creat Ratio 16.1 RATIO (10-20); CRP 92.00 mg/L (0.0-3.0); Calcium,Total 8.9 mg/dL (7.6-11.0); Carbon Dioxide 20.7 mmol/L (21.0-32.0); Chloride 102 mmol/L (98-108); Estimated Creatinine Clearance 96.76 ml/min (50-250); Glucose 132 mg/dL (70-99); Potassium 4.1 mmol/L (3.3-5.1)
--- NOTE | 2025-03-13 15:26 | CON.PCM_ITS ---
Assessment & Plan Assessment/Plan (1) Cellulitis of right lower limb: (2) Infection and inflammatory reaction due to internal fixation device of right fibula, initial encounter: (3) Diabetes mellitus with diabetic polyneuropathy: QUALIFIERS: Diabetes mellitus terminologist insulin use: with terminologist use Diabetes mellitus type: type 2 Qualified Code(s): E11.42 - Type 2 diabetes mellitus with diabetic polyneuropathy; Z79.4 - intermediate (current) use of insulin PLAN: Plan Evaluation performed. Reviewed right ankle xrays 3 views from today - there is noted s/p ORIF lateral and medial malleolus, hardware intact, no clear evidence of osteomyelitis, no gas in the tissues, no evidence of hardware loosening or failure. Clinically there are signs/symptoms of infection right lateral malleolus with ulceration which probes to hardware and there was noted to be some purulence. Patient to be admitted for right ankle cellulitis with hardware infection. Obtained a culture of the wound and purulence right ankle - sent to microbiology for further evaluation. Patient to be started on IV antibiotic therapy. Wound dressing right ankle: betadine solution, gauze, kerlix and trena dressing. Discussed with patient removal of hardware with debridement of ulceration right ankle, she would like to proceed with this. HPI Consult Data Date of Consult: 03/13/25 HPI Narrative Reason for Consultation: Right ankle wound and infection HPI Narrative: BEAN LEES, is a 59 F who presents due to redness, swelling and wound right ankle. She relates a couple of days ago she developed right ankle pain, relates today she noticed a wound. There is redness and swelling to her right ankle. She presented to [facility] [place] for further evaluation. She has history of diabetes and neuropathy, she relates her blood sugars have been good recently. She has seen Dr. Larsen in the past for left foot which is doing well. Regarding right ankle, she denies any known recent injury. She does relate to old ankle injury though and had surgical intervention in 2006 (ORIF). Today it is noted WBC is elevated at 11.2, ESR is 34 and CRP is 92, temp is 98.8F. Patient has been started on IV antibiotics - Unasyn with plans to be admitted to hospital medicine. Podiatry was consulted by Dr. Adamson ER physician. [facility] Medical History Chronic back pain Trigger finger Left hip pain Chest pain, atypical Anemia Flatulence Bilateral knee pain Colon cancer screening GERD (gastroesophageal reflux disease) Nausea Abdominal pain Wears glasses Anxiety Alcohol use Open wound Insulin dependent diabetes mellitus Uses wheelchair Dietary restriction Gastric reflux Non-smoker Shortness of breath on exertion Leg cramps History of edema Hypertension Preoperative evaluation to rule out surgical contraindication Health care maintenance Insomnia Skin picking habit Needs flu shot Breast cancer screening Anxiety and depression Obesity novasure bilat eye surgery great toe fusion Hyperparathyroidism open wound of toes Peripheral vascular disease of lower extremity Acute hematogenous osteomyelitis Hypothyroidism Hyperlipidemia Charcot's joint of left foot Peripheral neuropathy PVD (peripheral vascular disease) nonhealing plantar l foot wound Diabetic foot infection Diabetes type 1, controlled Home Medications ?Medication ?Instructions ?Recorded ?Last Taken ?Type insulin pump syringe 1.8 mL 01/23/18 Unknown History acetaminophen 325 mg tablet 650 mg (2 x 325 mg) PO Q4H PRN PRN 09/29/22 Unknown Rx Pain 1-10/Fever #0 tabs trazodone 50 mg tablet 25 mg (1/2 x 50 mg) PO QHS P RN 03/13/23 Unknown Rx insomnia #90 tabs hydroxyzine HCl 25 mg tablet 25 mg PO PRN PRN anxiety 04/18/23 Unknown History simvastatin 20 mg tablet 20 mg PO QHS 04/18/23 History ondansetron 4 mg disintegrating 4 mg PO Q8H PRN nausea and 06/14/23 Unknown Rx tablet vomiting #60 tabs ascorbic acid (vitamin C) 1,000 mg 1 g PO DAILY 90 day s #90 tabs 06/21/23 02/06/24 Rx tablet (Vitamin C) aspirin 81 mg tablet,delayed 81 mg PO DAILY 30 days #3 0 tabs 06/21/23 02/06/24 Rx release calcium 500 mg (as 1 tab PO DAILY 90 days #90 t abs 06/21/23 02/06/24 Rx carbonate)-vitamin D3 15 mcg (600 unit) tablet (Os-Cirilo 500 + D3) levothyroxine 125 mcg tablet 125 mcg PO DAILY #90 tabs 07/25/24 Unknown Rx naproxen 500 mg tablet 500 mg PO BID PRN #20 tabs 0 08/05/24 Unknown Rx omeprazole 40 mg capsule,delayed 40 mg PO QDAY #90 cap s 09/16/24 Unknown Rx release insulin lispro 100 unit/mL 100 unit subcut .continuous #90 mL 12/03/24 Unknown Rx subcutaneous solution (Humalog U-100 Insulin) insulin pump cart,auto,BT,G6/7 #15 ea 12/11/24 Unknown Rx (Omnipod 5 G6-G7 Pods (Gen 5) subcutaneous cartridge) enalapril maleate 5 mg tablet 5 mg PO DAILY #90 tabs 0 12/16/24 Unknown Rx duloxetine 30 mg capsule,delayed 30 mg PO BID #60 caps 02/04/25 Unknown Rx release blood-glucose sensor (Dexcom G7 #9 ea 02/24/25 Unknown Rx Sensor device) buspirone 5 mg tablet 5 mg PO TID #90 tabs 5 Unknown Rx Allergy/AdvReac Type Severity Reaction Status Date / Time codeine AdvReac Vomiting Verified 03/13/25 13:12 Family History Mother Diabetes Father Diabetes Grandfather Diabetes Grandmother Diabetes Surgical History History of endometrial biopsy Hx of appendectomy S/P laparoscopic appendectomy S/P foot surgery, left Status post bilateral foot surgery Hx of tubal ligation Hx of adenoidectomy History of tonsillectomy Hx of section S/P transmetatarsal amputation of foot Social History Smoking Status: Never smoker second hand exposure: No alcohol intake: current substance use type: does not use caffeine: Yes Physical Exam Const alert, oriented x3 and no apparent distress Constitutional Narrative: There is ulceration measuring ~0.5cm x 0.5cm and probes to hardware right lateral ankle, the margins of the wound are viable, the base of the wound with fibrosis, there is noted to be small amount of purulence to the wound site, there is no maloder, no fluctuance, no visible abscess, no crepitus noted, there is erythema to the lateral ankle and there is edema present to the ankle as well - more to the lateral ankle, there are no other open lesions or evidence of acute infection bilateral foot and ankle. Left foot is doing well. TMA left foot. Diffuse peripheral neuropathy bilateral foot. She relates to right ankle pain, but no significant POP or pain on ROM to right foot and ankle at this time. Pedal pulses intact bilateral. CFT < 3 seconds to all toes right foot. General Appearance: cooperative and comfortable Lab / Micro Data 03/13/25 14:06 03/13/25 14:06 Labs: Laboratory Results - last 24 hr 03/13/25 14:06: WBC 11.2 H, RBC 3.48 L, Hgb 10.1 L, Hct 30.9 L, MCV 88.8, MCH 29.0, MCHC 32.7, RDW Std Deviation 42.4, RDW Coeff of Frank 13.0, Plt Count 200, MPV 10.9, ESR 34 H, Sodium 135, Potassium 4.1, Chloride 102, Carbon Dioxide 20.7 L, Anion Gap 13, BUN 12, Creatinine 0.72, Estim Creat Clear Calc 96.76, Est GFR (MDRD) Non-Af 97, BUN/Creatinine Ratio 16.1, Glucose 132 H, Calcium 8.9, C-React Prot Ext Range 92.00 H Imaging Radiology Impression Ankle X-Ray 03/13/25 14:08 IMPRESSION: Prior ORIF of the distal tibia and fibula as described. Diffuse soft tissue swelling more prominent on the lateral aspect. Reading Location: [place] [id number]
--- NOTE | 2025-03-13 16:44 | PCM.HP.STD ---
HPI - General General Date of Admission: 03/13/25 Date of Service: 03/13/25 Chief Complaint: right ankle swelling. HPI Narrative BEAN LEES, is a 59 F who presents right ankle swelling. This is a type I diabetic who manages her own glucose and has had an A1c of 6.4. Presents with acute onset of right ankle pain. Began over the weekend and has just progressively gotten worse. Unable to dorsiflex her ankle. She does have neuropathy. Had wound nurse at work look at it and they advised to come to the emergency room. In emergency room, patient had a wound on her right lateral ankle. Was seen by podiatry which probed to the bone and patient actually broke her ankle about 25 years ago and has hardware in place and he was able to probe to the hardware. Tentative plan is for the patient to go to surgery on the . [ ] [facility] Medical History (Updated 03/13/25 @ 16:[address] Marco A Dallas, DO) Chronic back pain Trigger finger Left hip pain Chest pain, atypical Anemia Flatulence Bilateral knee pain Colon cancer screening GERD (gastroesophageal reflux disease) Nausea Abdominal pain Wears glasses Anxiety Alcohol use Open wound Insulin dependent diabetes mellitus Uses wheelchair Dietary restriction Gastric reflux Non-smoker Shortness of breath on exertion Leg cramps History of edema Hypertension Preoperative evaluation to rule out surgical contraindication Health care maintenance Insomnia Skin picking habit Needs flu shot Breast cancer screening Anxiety and depression Obesity novasure bilat eye surgery great toe fusion Hyperparathyroidism open wound of toes Peripheral vascular disease of lower extremity Acute hematogenous osteomyelitis Hypothyroidism Hyperlipidemia Charcot's joint of left foot Peripheral neuropathy PVD (peripheral vascular disease) nonhealing plantar l foot wound Diabetic foot infection Diabetes type 1, controlled Home Medications ?Medication ?Instructions ?Recorded ?Last Taken ?Type insulin pump syringe 1.8 mL 01/23/18 Unknown History acetaminophen 325 mg tablet 650 mg (2 x 325 mg) PO Q4H PRN PRN 09/29/22 Unknown Rx Pain 1-10/Fever #0 tabs trazodone 50 mg tablet 25 mg (1/2 x 50 mg) PO QHS PRN 03/13/23 Unknown Rx insomnia #90 tabs hydroxyzine HCl 25 mg tablet 25 mg PO PRN PRN anxiety 04/18/23 Unknown History simvastatin 20 mg tablet 40 mg PO QHS cholesterol 04/18/23 02/05/24 History ondansetron 4 mg disintegrating 4 mg PO Q8H PRN nausea and 06/14/23 Unknown Rx tablet vomiting #60 tabs ascorbic acid (vitamin C) 1,000 mg 1 g PO DAILY 90 days #90 tabs 06/21/23 02/06/24 Rx tablet (Vitamin C) aspirin 81 mg tablet,delayed 81 mg PO DAILY 30 days #30 tabs 06/21/23 03/13/25 Rx release calcium 500 mg (as 1 tab PO DAILY 90 days #90 tabs 06/21/23 02/06/24 Rx carbonate)-vitamin D3 15 mcg (600 unit) tablet (Os-Cirilo 500 + D3) levothyroxine 125 mcg tablet 125 mcg PO DAILY #90 tabs 07/25/24 Unknown Rx naproxen 500 mg tablet 500 mg PO BID PRN #20 tabs 08/05/24 Unknown Rx omeprazole 40 mg capsule,delayed 40 mg PO QDAY #90 caps 09/16/24 Unknown Rx release insulin lispro 100 unit/mL 100 unit subcut .continuous blood 12/03/24 Unknown Rx subcutaneous solution (Humalog glucose #90 mL U-100 Insulin) insulin pump cart,auto,BT,G6/7 #15 ea 12/11/24 Unknown Rx (Omnipod 5 G6-G7 Pods (Gen 5) subcutaneous cartridge) enalapril maleate 5 mg tablet 5 mg PO DAILY #90 tabs 12/16/24 03/13/25 Rx duloxetine 30 mg capsule,delayed 30 mg PO BID #60 caps 02/04/25 Unknown Rx release blood-glucose sensor (Dexcom G7 #9 ea 02/24/25 Unknown Rx Sensor device) buspirone 5 mg tablet 5 mg PO BID mood 03/13/25 03/13/25 History Allergy/AdvReac Type Severity Reaction Status Date / Time codeine AdvReac Vomiting Verified 03/13/25 13:12 Family History Mother Diabetes Father Diabetes Grandfather Diabetes Grandmother Diabetes Surgical History History of endometrial biopsy Hx of appendectomy S/P laparoscopic appendectomy S/P foot surgery, left Status post bilateral foot surgery Hx of tubal ligation Hx of adenoidectomy History of tonsillectomy Hx of section S/P transmetatarsal amputation of foot Social History Smoking Status: Never smoker second hand exposure: No alcohol intake: current substance use type: does not use caffeine: Yes ROS ROS Narrative Had not been feeling well and was having malaise as well as nausea and vomiting preceding all this. Very active at baseline and previously was walking on the ankle without any difficulties. Was not experiencing any chest pain or any palpitations no shortness of breath. All review of systems were negative except as mentioned above in the history of present illness and the other review of systems. Vital Signs Vital Signs Vital Signs: 03/13/25 13:11 03/13/25 14:17 03/13/25 15:10 Temperature 36.9 C 37.1 C Temperature Source Oral Oral Pulse Rate 103 H 98 102 H Respiratory Rate 22 H 19 H 20 H Blood Pressure 145/68 H 134/63 H Blood Pressure Mean 93 86 Pulse Ox 98 98 Oxygen Delivery Method Room Air Room Air Room Air 03/13/25 16:04 Temperature 37.1 C Temperature Source Pulse Rate 101 H Respiratory Rate 20 H Blood Pressure 137/66 H Blood Pressure Mean 89 Pulse Ox 94 Oxygen Delivery Method Weight Weight: 95.9 kg Body Mass Index (BMI) 36.3 Physical Exam Const alert and no apparent distress HEENT normocephalic and head/scalp atraumatic Resp normal respiratory effort, no retractions, no use of accessory muscles and clear to auscultation bilaterally Cardio regular rate, regular rhythm, S1 normal heart sound and S2 normal heart sound GI normal to inspection, nondistended, normoactive bowel sounds, soft to palpation, non-tender and non-distended Extremity Extremity Narrative: Swelling to right ankle. Patient has serous fluid being expressed from wound on her right lateral ankle. No induration. Neuro moves all extremities Sensorium / Orientation: awake and alert Psych affect normal Results Lab / Micro Data 03/13/25 14:06 03/13/25 14:06 Labs: Laboratory Results - last 24 hr 03/13/25 14:06: WBC 11.2 H, RBC 3.48 L, Hgb 10.1 L, Hct 30.9 L, MCV 88.8, MCH 29.0, MCHC 32.7, RDW Std Deviation 42.4, RDW Coeff of Frank 13.0, Plt Count 200, MPV 10.9, ESR 34 H, Sodium 135, Potassium 4.1, Chloride 102, Carbon Dioxide 20.7 L, Anion Gap 13, BUN 12, Creatinine 0.72, Estim Creat Clear Calc 96.76, Est GFR (MDRD) Non-Af 97, BUN/Creatinine Ratio 16.1, Glucose 132 H, Calcium 8.9, C-React Prot Ext Range 92.00 H Rhythm Strip Rhythm Strip: Sinus Rhythm Rate: 98 Ectopy: None Imaging Radiology Impression Ankle X-Ray 03/13/25 14:08 IMPRESSION: Prior ORIF of the distal tibia and fibula as described. Diffuse soft tissue swelling more prominent on the lateral aspect. Reading Location: [facility] Assessment & Plan Assessment/Plan (1) Diabetic foot infection: PLAN: Appears to be infected hardware as well. Seen by podiatry and plan is for the patient have surgery on the fifth. Patient is otherwise medically optimized to proceed with surgery. Patient received ampicillin/sulbactam in emergency room. Will continue with antibiotics with pip-tazo and vancomycin until further culture results. Consults to podiatry and infectious disease. Follow-up cultures (2) Diabetes type 1, controlled: PLAN: Patient uses a continuous glucose monitor as well as has insulin pump. Patient very much prefers to use an insulin pump while she is here. I discussed with Dr. Diallo, her insurance assistant about the insulin pump and surgery. Dr. Diallo states that the pump will autoregulate based on her glucose. Patient may relinquish her glucometer to anesthesia so that they can be managed while she is here. Will check her blood sugar while she is here to verify accuracy as well. PLAN: Plan Hypothyroidism: Continue levothyroxine Hypertension: Continue with enalapril Hyperlipidemia: Continue with simvastatin Depression: Continue duloxetine VTE prophylaxis with SCDs for now. CODE STATUS: Addressed with the patient. Patient is to be DNR Comfort Care arrest. Patient understands that that will be discontinued during the course of her surgery to be reimplemented after surgery. Charges/Coding Visit Charges Inpatient E&M: 14719 Init Hosp L3
--- NOTE | 2025-03-13 16:52 | PCM.RX.CS ---
Consult Antibiotic Management Pharmacy has been consulted to manage selected antibiotic: Vancomycin Type of Intervention Type of Consult: New start Suspected Infection Suspected Infection: Skin/Soft tissue Labs Labs: Sodium 135 mmol/L (133-145) 03/13/25 14:06 Potassium 4.1 mmol/L (3.3-5.1) 03/13/25 14:06 Chloride 102 mmol/L (98-108) 03/13/25 14:06 Carbon Dioxide 20.7 mmol/L (21.0-32.0) L 03/13/25 14:06 Anion Gap 13 (5-15) 03/13/25 14:06 BUN 12 mg/dL (4-19) 03/13/25 14:06 Creatinine 0.72 mg/dL (0.70-1.20) 03/13/25 14:06 Est GFR (MDRD) Non-Af 97 (>60) 03/13/25 14:06 BUN/Creatinine Ratio 16.1 RATIO (10-20) 03/13/25 14:06 Glucose 132 mg/dL (70-99) H 03/13/25 14:06 Dosing Weight Weight used for dosin.8 kg Estimated Creatinine Clearance Estimated Creatinine Clearance: 96.8 Goal Trough Goal Trough: 15-20 mcg/mL Pharmacy Plan for Drug Dosing Pharmacy Plan for Drug Dosing: Pharmacy Service will continue to monitor and adjust dosing as required. NEW START IV VANCOMYCIN Consulting Physician: Dr. Dallas Indication: Cellulitis Goal Trough: 15-20 SrCr: 0.72 CrCl: 96.8 mL/min Vancomycin Dose: 1000 mg Q12H with first dose 03/14/25 @ 0500 Pending Level: 03/15/25 @ 0430 Date/Time Labs Ordered Labs to be done on [date and time ordered]: 03/15/25 @ 3334
[2025-03-13] MEDS: Vancomycin HCl 1,500 MG in 0.9% Normal Saline (500mL Bag) 500 ML 250 MG IV (17:25)
--- OUTSIDE RECORDS SUMMARY | 2025-03-13 18:34 | XMS RPT_ITS | CCD ---
Author Organization [facility] Care Team Providers Care [employer] Name Role Phone CHAKA GONZALOWINNIE Unavailable Unavailable CHAKA GONZALOWINNIE Unavailable Unavailable PENNY SOSA Unavailable Unavail able PENNY SOSA Unavailable Unavail able MD Laura Steele Primary Care Provider Unava MD Laura Coon Referring Provider UnavailRUDY Sullivan Attending Provider Unavailab Dr. Ravi Bond Attending Provider Dr. Laura Steele Attending Provider [phone] MD Laura Steele Primary Care Provider Unava MD Laura Coon Referring Provider Unavaila PARMJIT Douglas DPM Admitting Unavailable PARMJIT LOPEZ DPM Attending Unavailable PARMJIT LOPEZ DPAngel Primary Care Unavailable NO, DOCTOR ON Consulting Unavailable Dr. Ravi Diallo Attending Provider RUDY Walton Attending Provider Unavailab MD Laura Tan Primary Care Provider Unava MD Laura Coon Referring Provider Unavaila ANGEL Freeman Attending Provider RUDY Walton Attending Provider Unavailab MD Laura Newsome Primary Care Provider U navailable MD Laura Pineda Referring Provider Unav Dr. Ravi Espinoza Attending Provider Dr. Laura Steele Attending Provider [phone] Dr. Laura Steele Primary Care Provider [phone] Dr. Scarlett Linn Emergency Provider [place], Dr. Giang Attending Provider [place], Dr. Giang Referring Provider [place], Dr. Giang Other Provider [place], Dr. Giang Admit Provider Dr. Stacy Beebe Other Provider Dr. Stacy Beebe Attending Provider [facility], Dr. Koo Attending Provider Dr. Laura Steele Referring Provider [phone] MD Laura Pineda Primary Care Provider U navailable MD Laura Pineda Referring Provider Dr. Ravi Pulliam Attending Provider MD Laura Pineda Referring Provider Juan Steele, Dr. Díaz Attending Provider [phone] Ivette, Dr. Díaz Primary Care Provider [phone] 0) Ivette, Dr. Díaz Attending Provider [phone] Dr. Laura Steele Referring Provider [phone] Dr. Laura Steele Primary Care Provider 1(33 0) Dr. Laura Steele Attending Provider [phone] Dr. Laura Steele Referring Provider [phone])2 Dr. Ravi Diallo Attending Provider ANGEL Green Attending Provider 1(330) Dr. Laura Steele Primary Care Provider 1(33 0) Ivette, Dr. Díaz Attending Provider [phone])2 Dr. Laura Steele Referring Provider [phone])2 Dr. Ravi Diallo Attending Provider ANGEL Green Attending Provider 1(330) Ivette QUINTANA, Dr. Díaz Primary Care Provider Ivette QUINTANA, Dr. Díaz Attending Provider 1(33 0) Ivette QUINTANA, Dr. Díaz Referring Provider 1(33 0) King LILIAN, Dr. Rodrigues Attending Provider Ivette QUINTANA, Dr. Díaz Primary Care Provider Ivette QUINTANA, Dr. Díaz Referring Provider 1(33 0) Sarah SOLIS, Dr. Elam Attending Provider [phone] Sarah SOLIS, Dr. Elam Emergency Provider [phone] Ivette QUINTANA, Dr. Díaz Attending Provider 1(33 0) Ivette QUINTANA, Dr. Díaz Primary Care Provider Ivette QUINTANA, Dr. Díaz Attending Provider 1(33 0) Ivette QUINTANA, Dr. Díaz Referring Provider 1(33 0) Ravi Diallo Attending Unavailable Oleghe, Efewongbe Primary Care Unavailable Oleghe, Efewongbe Referring Unavailable Oleghe, Efewongbe Primary Care Unavailable Oleghe, Efewongbe Attending Unavailable Oleghe, Efewongbe Referring Unavailable Oleghe, Efewongbe Primary Care Unavailable Papa Smith Attending Unavailable Oleghe, Efewongbe Primary Care Unavailable Marco A Larry Attending Unavailable Ravi Diallo Attending Unavailable Oleghe, Efewongbe Primary Care Unavailable Oleghe, Efewongbe Primary Care Unavailable Oleghe, Efewongbe Attending Unavailable Oleghe, Efewongbe Referring Unavailable Oleghe, Efewongbe Primary Care Unavailable Oleghe, Efewongbe Attending Unavailable Oleghe, Efewongbe Referring Unavailable Ravi Diallo Attending Unavailable Oleghe, Efewongbe Primary Care Unavailable Oleghe, Efewongbe Primary Care Unavailable Oleghe, Efewongbe Attending Unavailable Oleghe, Efewongbe Referring Unavailable Oleghe, Efewongbe Primary Care Unavailable Ravi Diallo Attending Unavailable Oleghe, Efewongbe Referring Unavailable Laura Steele Primary Care Unavailable Laura Steele Attending Unavailable Laura Steele Referring Unavailable LAURA STEELE MD Primary Care Physician [phone] LAURA STEELE MD Primary Care UnavailTAY Zamarripa MD Attending Unavailable Allergies Allergy Classification Reported Allergen(s) Allergy Type Date of Onset Reaction(s) Facility (1 source) acetaminophen / HYDROcodone; Translations: [HYDROCODONE-ACETA MINOPHEN] Drug Allergy 01-24-2005 [facility] Repository (20 sources) Codeine; Translations: [codeine] Drug Allergy 01-21-2021 Vomiting [facility] (1 source) Codeine Drug Allergy 11-15-2024 [facility] Repository Medications Current Medications Medication Drug Class(es) Dates Sig (Normalized) Sig (Original) acetaminophen 325 mg oral tablet (14 sources) Start: 09-29-2022 take 2 tablets by mouth every four hours as needed for pain Acetaminophen 325 mg Tablet Active 650 mg PO EVERY 4 HOURS NEEDED as needed for Pain 1-10/Fever 0 0 September 29, 2022 12:00am Start: 09-29-2022 take 650 mg by mouth every four hours as needed Acetaminophen Active 650 MG PO EVERY 4 HOURS NEEDED 0 September 29, 2022 12:00am ascorbic acid 1000 mg oral tablet (4 sources) Vitamin C Start: 06-21-2023 take 1 g by mouth once daily Ascorbic Acid (Vitamin C) (Vitamin C) 1,000 mg tablet Active 1 g PO DAILY 90 90 0 June 21, 2023 12:00am aspirin 81 mg delayed release oral tablet (4 sources) Platelet Aggregation Inhibitor, Nonsteroidal Anti-inflammatory Drug Start: 06-21-2023 take 1 tablet by mouth once daily Aspirin 81 mg tablet,delayed release (DR/EC) Active 81 mg PO DAILY 30 30 0 June 21, 2023 12:00am Blood-Glucose Meter,Continuous (Dexcom G6 Retail Field Merchandiser) misc (18 sources) Start: 11-26-2020 Blood-Glucose Meter,Continuous (Dexcom G6 Retail Field Merchandiser) misc Active 0 .ROUTE .MEDSUPPLY November 26, 2020 5:12pm As directed Start: 11-26-2020 End: 02-09-2024 Blood-Glucose Meter,Continuo us (Dexcom G6 Retail Field Merchandiser) misc Discontinued 0 .ROUTE .MEDSUPPLY November 26, 2020 12:00am February 09, 2024 1:53pm As directed Start: 11-26-2020 Blood-Glucose Meter,Continuous (Dexcom G6 Retail Field Merchandiser) misc Active 0 .ROUTE .MEDSUPPLY November 25, 2020 11:00pm As directed Start: 11-26-2020 Blood-Glucose Meter,Continuous (Dexcom G6 Retail Field Merchandiser) misc Active 0 .ROUTE .MEDSUPPLY November 26, 2020 12:00am As directed Blood-Glucose Sensor (Dexcom G7 Sensor) device (3 sources) Start: 02-09-2024 Blood-Glucose Sensor (Dexcom G7 Sensor) device Active 0 .Route 9 February 09, 2024 12:00am As directed Start: 02-09-2024 Blood-Glucose Sensor (Dexcom G7 Sensor) device Active 0 .Route February 09, 2024 12:00am As directed brimonidine tartrate 2 mg/ml ophthalmic solution (1 source) alpha-Adrenergic Agonist Start: 11-06-2018 Alphagan 0.2% ophthalmic solution Dose = 1 drop(s), Eye, left, q8h, # 15 mL, 0 Refill(s) Start Date: 11/06/18 Status: Ordered Medication Dispense Status: Completed Quantity: 15.0 Unit: mL Total Allowed Fills: 1 Fills Dispensed: 0 busPIRone hydrochloride 5 mg oral tablet (3 sources) Start: 08-09-2024 End: 12-05-2024 take 1 tablet by mouth three times daily Buspirone 5 mg tablet Active 5 mg PO THREE TIMES A DAY 90 3 December 05, 2024 8:14am calcium carbonate 1250 mg / cholecalciferol 600 unt oral tablet (4 sources) Vitamin D Start: 06-21-2023 Calcium Carbonate-Vitamin D3 (Os-Natacha 500 + D3) 500 mg-15 mcg (600 unit) tablet Active 1 {tbl} PO DAILY 90 90 0 June 21, 2023 12:00am dorzolamide 20 mg/ml / timolol 5 mg/ml ophthalmic solution (1 source) Carbonic Anhydrase Inhibitor, beta-Adrenergic Yana Start: 11-06-2018 dorzolamide-timolo l 2.23%-0.68% ophthalmic solution INSTILL 1 DROP INTO LEFT EYE TWICE A DAY Start Date: 11/06/18 Status: Ordered Medication Dispense Status: Completed Total Allowed Fills: 1 Fills Dispensed: 0 enalapril maleate 5 mg oral tablet (20 sources) Angiotensin Converting Enzyme Inhibitor Start: 02-09-2022 End: 12-16-2024 take 1 tablet by mouth once daily Enalapril Maleate 5 mg tablet Active 5 mg PO DAILY 90 December 16, 2024 4:27pm Type 1 diabetes mellitus Type 1 diabetes mellitus with hyperglycemia TAKE 1 TABLET BY MOUTH EVERY DAY Start: 03-20-2017 End: 02-09-2022 enalapril 10 mg oral tablet Dose : 10 mg = 1 tab(s), Oral, Daily, # 90 tab(s), 0 Refill(s) Start Date: 11/06/18 Status: Ordered Medication Dispense Status: Completed Quantity: 90.0 Unit: tab(s) Total Allowed Fills: 1 Fills Dispensed: 0 Start: 03-06-2015 End: 03-20-2017 take 1 tablet by mouth once daily Enalapril Maleate 20 MG tablet Discontinued 20 mg PO DAILY 30 March 19, 2017 1:23pm March 20, 2017 5:34pm Type 1 diabetes mellitus without complications 3 ml insulin glargine 100 unt/ml pen injector (1 source) Insulin Analog Start: 07-04-2019 inject 1 dose by subcutaneous injection once daily Lantus Solostar Pen 100 units/mL 3 mL Pen Dose : 18 unit(s) =, Subcutaneous, qDay, In case of pump failure, # 3 mL, 2 Refill(s), Pharmacy: [facility]/pharmacy #[id number], 163, cm, 11/06/18 7:53:00 EDT, Height, kg, 11/06/18 7:53:00 EDT, Dosing Weight Start Date: 07/04/19 Status: Ordered Medication Dispense Status: Completed Quantity: 3.0 Unit: mL Total Allowed Fills: 3 Fills Dispensed: 0 insulin lispro 100 unt/ml injectable solution (20 sources) Insulin Analog Start: 05-16-2023 End: 12-03-2024 Insulin Lispro (Humalog U-100 Insulin) 100 unit/mL solution Active 100 U SC .continuous 90 1 December 03, 2024 10:46am viaInsulin Pump Start: 06-20-2019 End: 11-15-2022 Insulin Lispro (Humalog U-10 0 Insulin) 100 unit/mL solution Discontinued 100 U SC .continuous 90 1 June 29, 2022 9:26am November 15, 2022 8:39am viaInsulin Pump Start: 01-08-2019 End: 06-20-2019 Insulin Lispro (Humalog U-10 0 Insulin) 100 unit/mL solution Discontinued 1 sliding scale dose SC Use as Directed January 08, 2019 12:00am June 20, 2019 2:56pm Uses Insulin Pump Start: 11-06-2018 inject 75 [IU] by ortega bcutaneous injection once daily HumaLOG 100 units/mL injectable solution USES UP TO 75UNITS DAILY VIA PUMP CONTINUOUS SUBCUTANEOUS INFUSION EVERY DAY Start Date: 11/06/18 Status: Ordered Medication Dispense Status: Completed Total Allowed Fills: 1 Fills Dispensed: 0 Start: 07-12-2017 End: 07-12-2017 Insulin Lispro (Humalog U-10 0 Insulin) 100 unit/mL solution Discontinued 0 Continuous Subcutaneous Infusion daily 9 11 July 12, 2017 8:10am July 12, 2017 11:30am Type 1 diabetes mellitus without complications uses up to 75U qd via pump Continuous Subcutaneous Infusion QDAY Start: 03-19-2017 End: 07-12-2017 inject 75 [IU] by subcutaneous injection once daily Insulin Lispro (Humalog U-100 Insulin) 100 unit/mL solution Discontinued 75 U Continuous Subcutaneous Infusion daily 3 0 June 13, 2017 5:06pm July 12, 2017 8:12am Type 1 diabetes mellitus without complications Start: 03-15-2017 End: 03-19-2017 Insulin Lispro (Humalog U-10 0 Insulin) 100 unit/mL solution Discontinued 0 Continuous Subcutaneous Infusion .COMPLEX March 15, 2017 1:00am March 19, 2017 1:27pm Type 1 diabetes mellitus without complications uses 225U q 3 days via pump Continuous Subcutaneous Infusion continuous Start: 03-06-2015 End: 03-15-2017 Insulin Lispro 100 UNIT/ML cartridge Discontinued 0 U SQ DAILY March 06, 2015 1:00am March 15, 2017 3:19pm Start: 03-06-2015 End: 03-15-2017 Insulin Lispro Discontinued 0 UNIT SQ DAILY March 06, 2015 1:00am March 15, 2017 3:19pm Insulin Pump Cart,Auto,Bt,G6 /7 (Omnipod 5 G6-G7 Pods (Gen 5)) cartridge (1 source) Start: 12-11-2024 Insulin Pump C art,Auto,Bt,G6/7 (Omnipod 5 G6-G7 Pods (Gen 5)) cartridge Active 0 .Route 15 December 11, 2024 12:00am Type 1 diabetes mellitus Type 1 diabetes mellitus with hyperglycemia 1 pod every 48-72 hours Insulin Pump Syringe (17 sources) Start: 01-23-2018 Insulin Pump S yringe Active 1 EACH MC Continuous January 23, 2018 12:53pm Start: 01-23-2018 Insulin Pump S yringe Active 1 EACH MC Continuous January 22, 2018 11:00pm Start: 01-23-2018 Insulin Pump S yringe Active 1 EACH MC Continuous January 23, 2018 12:00am Insulin Pump Syringe 1 EACH misc (3 sources) Start: 01-23-2018 Insulin Pump Syringe 1 EACH misc Active 1 NMA MC Continuous January 23, 2018 12:00am latanoprost 0.05 mg/ml ophthalmic solution (1 source) Prostaglandin Analog Start: 11-06-2018 latanoprost 0.005% ophthalmic solution Dose = 1 drop(s), Eye, left, qHS, # 2.5 mL, 0 Refill(s) Start Date: 11/06/18 Status: Ordered Medication Dispense Status: Completed Quantity: 2.5 Unit: mL Total Allowed Fills: 1 Fills Dispensed: 0 linezolid 600 mg oral tablet (1 source) Oxazolidinone Antibacterial Start: 03-08-2023 take 1 tablet by mouth every twelve hours Linezolid (Zyvox) 600 mg tablet Active 600 MG PO Q12H March 08, 2023 12:00am naproxen 500 mg oral tablet (2 sources) Nonsteroidal Anti-inflammatory Drug Start: 08-05-2024 take 1 tablet by mouth twice daily as needed Naproxen 500 mg tablet Active 500 mg PO TWICE DAILY NEEDED August 05, 2024 12:00am omeprazole 40 mg delayed release oral capsule (20 sources) Proton Pump Inhibitor Start: 03-17-2017 End: 09-16-2024 omeprazole 40 mg oral delayed release capsule Dose : 40 mg = 1 cap(s), Oral, qDay, # 90 cap(s), 0 Refill(s) Start Date: 11/06/18 Status: Ordered Medication Dispense Status: Completed Quantity: 90.0 Unit: cap(s) Total Allowed Fills: 1 Fills Dispensed: 0 ondansetron 4 mg disintegrating oral tablet (20 sources) Serotonin-3 Receptor Antagonist Start: 06-14-2023 take 1 tablet by mouth every eight hours as needed for nausea and vomiting Ondansetron 4 mg tablet,disintegr ating Active 4 mg PO Q8H as needed for nausea and vomiting 60 June 14, 2023 1:00am Start: 12-01-2021 End: 02-09-2022 take 1 tablet by mouth every eight hours as needed for nausea and vomiting Ondansetron Hcl 4 mg tablet Discontinued 4 mg PO Q8H as needed for nausea and vomiting 14 December 01, 2021 12:00am February 09, 2022 9:28am Start: 07-16-2020 End: 08-31-2021 take 1 tablet by mouth every eight hours as needed for nausea Ondansetron 4 MG tablet Discontinued 4 mg PO EVERY 8 HOURS NEEDED as needed for Nausea July 16, 2020 12:00am August 31, 2021 2:12pm sucralfate 1000 mg oral tablet (5 sources) Aluminum Complex Start: 06-14-2023 take 1 tablet by mouth at bedtime Sucralfate (Carafate) 1 gram tablet Active 1 g PO before meals and at bedtime 120 30 June 14, 2023 1:00am traZODone hydrochloride 50 mg oral tablet (20 sources) Serotonin Reuptake Inhibitor Start: 03-13-2023 Trazodone 50 mg tablet Active 25 mg PO AT BEDTIME as needed for insomnia March 13, 2023 9:31am Start: 03-13-2023 take 25 mg by mouth at bedtime Trazodone Active 25 MG PO AT BEDTIME March 13, 2023 9:31am Start: 12-20-2022 End: 03-13-2023 Trazodone Discontinued 0 .RO [place] .COMPLEX December 20, 2022 4:58pm March 13, 2023 9:32am TAKE 1 TABLET AT BEDTIME Start: 11-21-2022 End: 03-13-2023 Trazodone 50 mg tablet Disco ntinued 0 .ROUTE .COMPLEX 90 1 December 20, 2022 4:58pm March 13, 2023 9:32am TAKE 1 TABLET AT BEDTIME Completed/Discontinued Medications Medication Drug Class(es) Dates Sig (Normalized) Sig (Original) acetaminophen 325 mg / oxyCODONE hydrochloride 5 mg oral tablet (20 sources) Opioid Agonist Start: 06-21-2023 End: 09-19-2023 Oxycodone-Acetaminoph en (Endocet) 5-325 mg tablet Discontinued 1 {tbl} PO EVERY 6 HOURS 28 7 0 June 21, 2023 September 19, 2023 8:05am Other acute postprocedural pain Other acute postprocedural pain pain Start: 03-30-2023 End: 09-19-2023 Oxycodone-Acetaminophen (Per cocet) 5-325 mg tablet Discontinued 1 {tbl} PO TWICE A DAY 14 7 0 March 30, 2023 September 19, 2023 8:05am Left foot pain Pain in left foot Start: 09-29-2022 End: 03-13-2023 Oxycodone-Acetaminophen 5-32 5 mg Tablet Discontinued 1 {tbl} PO EVERY 4 HOURS NEEDED as needed for Pain Score 6-10 20 5 0 September 29, 2022 March 13, 2023 9:16am Acute appendicitis Unspecified acute appendicitis On Hold: MD Ordered Start: 09-29-2022 End: 03-13-2023 take 1 tablet by mouth every four hours as needed Oxycodone-Acetaminophen Discontinued 1 TABLET PO EVERY 4 HOURS NEEDED 20 5 September 29, 2022 March 13, 2023 9:16am On Hold: MD Ordered Start: 04-09-2015 End: 03-15-2017 Oxycodone-Acetaminophen 1 TA BLET tablet Discontinued 1 - 2 {tbl} PO EVERY 6 HOURS NEEDED as needed for Pain April 09, 2015 1:00am March 15, 2017 3:19pm Start: 04-09-2015 End: 03-15-2017 take 1 tablet by mouth every six hours as needed Oxycodone-Acetaminophen Discontinued 1 - 2 TABLET PO EVERY 6 HOURS NEEDED April 09, 2015 1:00am March 15, 2017 3:19pm bimatoprost 0.1 mg/ml ophthalmic solution (20 sources) Prostaglandin Analog Start: 03-06-2015 End: 03-15-2017 take 1 drop(s) into the eye(s) at bedtime Bimatoprost 1 DROP bottle Discontinued 1 NMA LEFT EYE AT BEDTIME March 06, 2015 1:00am March 15, 2017 3:18pm Start: 03-06-2015 End: 03-15-2017 Bimatoprost Discontinued 1 D RP LEFT EYE AT BEDTIME March 06, 2015 1:00am March 15, 2017 3:18pm Blood-Glucose Sensor (Dexcom G6 Sensor) device (20 sources) Start: 11-13-2023 End: 02-09-2024 Blood-Glucose Sensor (Dexcom G6 Sensor) device Discontinued 0 .ROUTE .MEDSUPPLY 9 November 13, 2023 11:14am February 09, 2024 1:53pm change every 10 days Start: 11-13-2023 End: 02-09-2024 Blood-Glucose Sensor (Dexcom G6 Sensor) device Discontinued 0 .ROUTE .MEDSUPPLY November 13, 2023 11:14am February 09, 2024 1:53pm change every 10 days Start: 11-15-2022 End: 11-13-2023 Blood-Glucose Sensor (Dexcom G6 Sensor) device Discontinued 0 .ROUTE .MEDSUPPLY 9 November 15, 2022 8:39am November 13, 2023 11:14am change every 10 days Start: 11-15-2022 End: 11-13-2023 Blood-Glucose Sensor (Dexcom G6 Sensor) device Discontinued 0 .ROUTE .MEDSUPPLY November 15, 2022 8:39am November 13, 2023 11:14am change every 10 days Start: 11-15-2022 Blood-Glucose Sensor (Dexcom G6 Sensor) device Active 0 .ROUTE .MEDSUPPLY November 15, 2022 7:39am change every 10 days Start: 11-15-2022 Blood-Glucose Sensor (Dexcom G6 Sensor) device Active 0 .ROUTE .MEDSUPPLY November 15, 2022 8:39am change every 10 days Start: 01-26-2022 End: 11-15-2022 Blood-Glucose Sensor (Dexcom G6 Sensor) device Discontinued 0 .ROUTE .MEDSUPPLY 9 January 26, 2022 8:39am November 15, 2022 8:40am change every 10 days Start: 01-26-2022 End: 11-15-2022 Blood-Glucose Sensor (Dexcom G6 Sensor) device Discontinued 0 .ROUTE .MEDSUPPLY January 26, 2022 7:39am November 15, 2022 7:40am change every 10 days Start: 01-26-2022 End: 11-15-2022 Blood-Glucose Sensor (Dexcom G6 Sensor) device Discontinued 0 .ROUTE .MEDSUPPLY January 26, 2022 8:39am November 15, 2022 8:40am change every 10 days Start: 01-26-2022 Blood-Glucose Sensor (Dexcom G6 Sensor) device Active 0 .ROUTE .MEDSUPPLY January 26, 2022 8:39am change every 10 days Start: 01-26-2022 Blood-Glucose Sensor (Dexcom G6 Sensor) device Active 0 .ROUTE .MEDSUPPLY January 26, 2022 7:39am change every 10 days Start: 12-21-2020 End: 01-26-2022 Blood-Glucose Sensor (Dexcom G6 Sensor) device Discontinued 0 .ROUTE .MEDSUPPLY 9 December 21, 2020 8:16am January 26, 2022 8:39am change every 10 days Start: 12-21-2020 End: 01-26-2022 Blood-Glucose Sensor (Dexcom G6 Sensor) device Discontinued 0 .ROUTE .MEDSUPPLY December 21, 2020 8:16am January 26, 2022 8:39am change every 10 days Start: 12-21-2020 End: 01-26-2022 Blood-Glucose Sensor (Dexcom G6 Sensor) device Discontinued 0 .ROUTE .MEDSUPPLY December 21, 2020 7:16am January 26, 2022 7:39am change every 10 days Start: 12-21-2020 Blood-Glucose Sensor (Dexcom G6 Sensor) device Active 0 .ROUTE .MEDSUPPLY December 21, 2020 8:16am change every 10 days Start: 11-26-2020 End: 12-21-2020 Blood-Glucose Sensor (Dexcom G6 Sensor) device Discontinued 0 .ROUTE .MEDSUPPLY November 26, 2020 5:12pm December 21, 2020 8:16am change every 10 days Start: 11-26-2020 End: 12-21-2020 Blood-Glucose Sensor (Dexcom G6 Sensor) device Discontinued 0 .ROUTE .MEDSUPPLY 9 November 26, 2020 12:00am December 21, 2020 8:16am change every 10 days Start: 11-26-2020 End: 12-21-2020 Blood-Glucose Sensor (Dexcom G6 Sensor) device Discontinued 0 .ROUTE .MEDSUPPLY November 25, 2020 11:00pm December 21, 2020 7:16am change every 10 days Start: 11-26-2020 End: 12-21-2020 Blood-Glucose Sensor (Dexcom G6 Sensor) device Discontinued 0 .ROUTE .MEDSUPPLY November 26, 2020 12:00am December 21, 2020 8:16am change every 10 days Blood-Glucose Transmitter (Dexcom G6 Transmitter) device (20 sources) Start: 11-13-2023 End: 02-09-2024 Blood-Glucose Transmitter (Dexcom G6 Transmitter) device Discontinued 0 .ROUTE .MEDSUPPLY 1 November 13, 2023 11:14am February 09, 2024 1:53pm As directed Start: 11-13-2023 End: 02-09-2024 Blood-Glucose Transmitter (D excom G6 Transmitter) device Discontinued 0 .ROUTE .MEDSUPPLY November 13, 2023 11:14am February 09, 2024 1:53pm As directed Start: 11-15-2022 End: 11-13-2023 Blood-Glucose Transmitter (D excom G6 Transmitter) device Discontinued 0 .ROUTE .MEDSUPPLY 1 November 15, 2022 8:40am November 13, 2023 11:14am As directed Start: 11-15-2022 End: 11-13-2023 Blood-Glucose Transmitter (D excom G6 Transmitter) device Discontinued 0 .ROUTE .MEDSUPPLY November 15, 2022 8:40am November 13, 2023 11:14am As directed Start: 11-15-2022 Blood-Glucose Transmitter (Dexcom G6 Transmitter) device Active 0 .ROUTE .MEDSUPPLY November 15, 2022 7:40am As directed Start: 11-15-2022 Blood-Glucose Transmitter (Dexcom G6 Transmitter) device Active 0 .ROUTE .MEDSUPPLY 1 November 15, 2022 8:40am As directed Start: 01-26-2022 End: 11-15-2022 Blood-Glucose Transmitter (D excom G6 Transmitter) device Discontinued 0 .ROUTE .MEDSUPPLY 1 3 January 26, 2022 8:39am November 15, 2022 8:40am As directed Start: 01-26-2022 End: 11-15-2022 Blood-Glucose Transmitter (D excom G6 Transmitter) device Discontinued 0 .ROUTE .MEDSUPPLY 1 January 26, 2022 7:39am November 15, 2022 7:40am As directed Start: 01-26-2022 End: 11-15-2022 Blood-Glucose Transmitter (D excom G6 Transmitter) device Discontinued 0 .ROUTE .MEDSUPPLY 1 January 26, 2022 8:39am November 15, 2022 8:40am As directed Start: 01-26-2022 Blood-Glucose Transmitter (Dexcom G6 Transmitter) device Active 0 .ROUTE .MEDSUPPLY January 26, 2022 8:39am As directed Start: 01-26-2022 Blood-Glucose Transmitter (Dexcom G6 Transmitter) device Active 0 .ROUTE .MEDSUPPLY January 26, 2022 7:39am As directed Start: 11-26-2020 Blood-Glucose Transmitter (Dexcom G6 Transmitter) device Active 0 .ROUTE .MEDSUPPLY November 26, 2020 5:12pm As directed Start: 11-26-2020 End: 01-26-2022 Blood-Glucose Transmitter (D excom G6 Transmitter) device Discontinued 0 .ROUTE .MEDSUPPLY 1 3 November 26, 2020 12:00am January 26, 2022 8:39am As directed Start: 11-26-2020 End: 01-26-2022 Blood-Glucose Transmitter (D excom G6 Transmitter) device Discontinued 0 .ROUTE .MEDSUPPLY November 26, 2020 12:00am January 26, 2022 8:39am As directed Start: 11-26-2020 End: 01-26-2022 Blood-Glucose Transmitter (D excom G6 Transmitter) device Discontinued 0 .ROUTE .MEDSUPPLY 1 November 25, 2020 11:00pm January 26, 2022 7:39am As directed Start: 11-26-2020 Blood-Glucose Transmitter (Dexcom G6 Transmitter) device Active 0 .ROUTE .MEDSUPPLY 1 November 26, 2020 12:00am As directed Blood-Glucose,Retail Field Merchandiser,Cont (Dexcom G6 Retail Field Merchandiser) misc (2 sources) Start: 11-26-2020 End: 02-09-2024 Blood-Glucose,Retail Field Merchandiser,Cont (Dexcom G6 Retail Field Merchandiser) misc Discontinued 0 .ROUTE .MEDSUPPLY 1 0 November 26, 2020 12:00am February 09, 2024 1:53pm As directed brimonidine tartrate 2 mg/ml / timolol 5 mg/ml ophthalmic solution (20 sources) alpha-Adr energic Agonist, beta-Adre nergic Yana Start: 03-06-2015 End: 03-15-2017 take 1 drop(s) into the eye(s) twice daily Brimonidine-Timolol 1 DROP bottle Discontinued 1 NMA LEFT EYE TWICE A DAY March 06, 2015 1:00am March 15, 2017 3:18pm Start: 03-06-2015 End: 03-15-2017 Brimonidine-Timolol Disconti nued 1 DRP LEFT EYE TWICE A DAY March 06, 2015 1:00am March 15, 2017 3:18pm cholecalciferol 0.625 mg oral capsule (20 sources) Vitamin D Start: 05-26-2023 End: 07-07-2023 take 1 capsule by mouth every week Cholecalciferol (Vitamin D3) 625 mcg (25,000 unit) capsule Discontinued 625 ug PO EVERY WEEK 6 42 0 May 26, 2023 1:00am July 06, 2023 12:00am July 07, 2023 12:06am Vitamin d deficiency Vitamin D deficiency, unspecified Start: 03-15-2017 End: 05-26-2023 take 1 capsule by mouth once daily Cholecalciferol (Vitamin D3) 5,000 unit capsule Discontinued 5000 U PO daily March 15, 2017 1:00am May 26, 2023 8:37am ciprofloxacin 500 mg oral tablet (20 sources) Quinolone Antimicrobial Start: 05-14-2019 End: 06-20-2019 take 1 tablet by mouth twice daily Ciprofloxacin Hcl 500 mg tablet Discontinued 500 mg PO TWICE A DAY 10 0 May 14, 2019 1:00am June 20, 2019 2:41pm clindamycin 300 mg oral capsule (20 sources) Lincosamide Antibacterial Start: 06-25-2020 End: 09-23-2020 take 1 capsule by mouth three times daily Clindamycin Hcl 300 mg capsule Discontinued 300 mg PO THREE TIMES A DAY 15 0 June 25, 2020 12:00am September 23, 2020 2:33pm Start: 03-31-2018 End: 06-01-2018 take 2 capsules by mouth four times daily Clindamycin Hcl 150 MG capsule Discontinued 300 mg PO 4 TIMES DAILY 80 0 March 31, 2018 1:00am June 01, 2018 12:13pm Start: 03-31-2018 End: 06-01-2018 take 300 mg by mouth four times daily Clindamycin Hcl Discontinued 300 MG PO 4 TIMES DAILY 80 March 31, 2018 1:00am June 01, 2018 12:13pm Start: 10-03-2016 End: 03-15-2017 take 2 capsules by mouth four times daily Clindamycin Hcl 150 MG capsule Discontinued 300 mg PO 4 TIMES DAILY 80 0 October 03, 2016 12:00am March 15, 2017 3:19pm Start: 10-03-2016 End: 03-15-2017 take 300 mg by mouth four times daily Clindamycin Hcl Discontinued 300 MG PO 4 TIMES DAILY 80 October 03, 2016 12:00am March 15, 2017 3:19pm cyclobenzaprine hydrochloride 10 mg oral tablet (20 sources) Muscle Relaxant Start: 06-21-2023 End: 09-19-2023 take 1 tablet by mouth three times daily Cyclobenzaprine 10 mg tablet Discontinued 10 mg PO THREE TIMES A DAY 21 7 0 June 21, 2023 12:00am September 19, 2023 8:04am muscle spasm Start: 12-17-2018 End: 05-14-2019 take 1 tablet by mouth at bedtime as needed for muscle spasms Cyclobenzaprine 10 mg tablet Discontinued 10 mg PO BEDTIME as needed for muscle spasm 30 0 December 17, 2018 12:00am May 14, 2019 4:21pm diphenhydrAMINE hydrochloride 50 mg oral capsule (17 sources) Histamine-1 Receptor Antagonist Start: 11-23-2021 End: 11-30-2021 take 1 capsule by mouth three times daily as needed Diphenhydramine Hcl 50 mg capsule Discontinued 50 mg PO THREE TIMES A DAY as needed for rash 30 0 November 23, 2021 12:00am November 30, 2021 1:19pm docusate sodium 100 mg oral capsule (4 sources) Start: 06-21-2023 End: 09-19-2023 take 1 capsule by mouth once daily Docusate Sodium (Colace) 100 mg capsule Discontinued 100 mg PO DAILY 10 10 June 21, 2023 12:00am September 19, 2023 8:04am doxycycline hyclate 100 mg oral capsule (20 sources) Tetracycline-class Drug Start: 03-17-2017 End: 01-08-2018 take 1 capsule by mouth twice daily Doxycycline Hyclate 100 mg capsule Discontinued 100 mg PO TWICE A DAY 20 March 17, 2017 1:00am January 08, 2018 2:07pm DULoxetine 30 mg delayed release oral capsule (6 sources) Serotonin and Norepinephrine Reuptake Inhibitor Start: 08-09-2024 End: 11-05-2024 take 1 capsule by mouth twice daily Duloxetine 30 mg capsule,delayed release(DR/EC) Discontinued 30 mg PO TWICE A DAY 60 1 September 09, 2024 8:12am November 05, 2024 3:33pm famotidine 20 mg oral tablet (20 sources) Histamine-2 Receptor Antagonist Start: 12-28-2021 End: 02-09-2022 take 1 tablet by mouth once daily as needed Famotidine 20 mg tablet Discontinued 20 mg PO DAILY as needed for itching 20 December 28, 2021 12:00am February 09, 2022 9:27am Start: 11-23-2021 End: 11-30-2021 take 1 tablet by mouth once daily Famotidine (Pepcid) 40 mg tablet Discontinued 40 mg PO DAILY 7 November 23, 2021 12:00am November 30, 2021 1:18pm Flash Glucose Scanning Reade r (Freestyle Lewis 14 Day [place]) misc (20 sources) Start: 04-24-2018 End: 01-08-2019 Flash Glucose Scanning Reade r (Freestyle Lewis 14 Day [place]) misc Discontinued 0 .ROUTE .MEDSUPPLY April 24, 2018 3:16pm January 08, 2019 2:37pm As directed to monitor glucose levels Start: 04-24-2018 End: 01-08-2019 Flash Glucose Scanning Reade r (Freestyle Lewis 14 Day [place]) mis Discontinued 0 .ROUTE .MEDSUPPLY 1 April 24, 2018 1:00am January 08, 2019 2:37pm As directed to monitor glucose levels Start: 04-24-2018 End: 01-08-2019 Flash Glucose Scanning Reade r (Freestyle Lewis 14 Day [place]) misc Discontinued 0 .ROUTE .MEDSUPPLY April 24, 2018 12:00am January 08, 2019 1:37pm As directed to monitor glucose levels Start: 04-24-2018 End: 01-08-2019 Flash Glucose Scanning Reade r (Freestyle Lewis 14 Day [place]) mis Discontinued 0 .ROUTE .MEDSUPPLY April 24, 2018 1:00am January 08, 2019 2:37pm As directed to monitor glucose levels Flash Glucose Sensor (Freest yle Lewis 14 Day Sensor) kit (20 sources) Start: 04-24-2018 End: 01-08-2019 Flash Glucose Sensor (Freest yle Lewis 14 Day Sensor) kit Discontinued 0 .ROUTE .MEDSUPPLY April 24, 2018 3:16pm January 08, 2019 2:37pm As directed to monitor glucose levels change every 14 days Start: 04-24-2018 End: 01-08-2019 Flash Glucose Sensor (Freest yle Lewis 14 Day Sensor) kit Discontinued 0 .ROUTE .MEDSUPPLY 1 April 24, 2018 1:00am January 08, 2019 2:37pm Type 2 diabetes mellitus with other skin complications As directed to monitor glucose levels change every 14 days Start: 04-24-2018 End: 01-08-2019 Flash Glucose Sensor (Freest yle Lewis 14 Day Sensor) kit Discontinued 0 .ROUTE .MEDSUPPLY April 24, 2018 12:00am January 08, 2019 1:37pm As directed to monitor glucose levels change every 14 days Start: 04-24-2018 End: 01-08-2019 Flash Glucose Sensor (Freest yle Lewis 14 Day Sensor) kit Discontinued 0 .ROUTE .MEDSUPPLY April 24, 2018 1:00am January 08, 2019 2:37pm As directed to monitor glucose levels change every 14 days FLUoxetine 40 mg oral capsule (20 sources) Serotonin Reuptake Inhibitor Start: 08-18-2022 End: 08-09-2024 take 1 capsule by mouth twice daily Fluoxetine 40 mg capsule Discontinued 40 mg PO TWICE A DAY 180 3 2022 1:18pm August 09, 2024 2:44pm Depression Menopausal syndrome Major depressive disorder, single episode, unspecified Menopausal and female climacteric states depression, hot flashes Start: 11-06-2018 End: 08-18-2022 take 1 capsule by mouth twice daily Fluoxetine 20 mg capsule Discontinued 20 mg PO TWICE A DAY 180 0 July 20, 2022 9:12am August 18, 2022 4:10pm Depression Menopausal syndrome Major depressive disorder, single episode, unspecified Menopausal and female climacteric states depression, hot flashes Start: 03-28-2018 End: 12-17-2020 take 1 capsule by mouth once daily Fluoxetine 20 mg capsule Discontinued 20 mg PO DAILY 90 3 September 08, 2020 8:52am December 17, 2020 2:50pm Start: 03-28-2018 End: 03-28-2018 take 2 capsules by mouth once daily Fluoxetine (Prozac) 10 mg capsule Discontinued 20 mg PO DAILY 30 March 28, 2018 4:22pm March 28, 2018 5:17pm Start: 01-08-2018 End: 03-28-2018 take 1 capsule by mouth once daily Fluoxetine (Prozac) 10 mg capsule Discontinued 10 mg PO DAILY January 08, 2018 12:00am March 28, 2018 3:43pm hydrOXYzine hydrochloride 25 mg oral tablet (20 sources) Antihistamine Start: 10-10-2022 End: 04-18-2023 take 1 tablet by mouth twice daily Hydroxyzine Hcl 25 mg tablet Discontinued 0 .ROUTE .COMPLEX 120 2 December 05, 2022 5:54pm April 18, 2023 12:32pm TAKE 1 TABLET BY MOUTH TWICE A DAY FOR NEEDED FOR ITCHING Insulin Pump Cart,Auto,Bt-Cntr (Omnipod 5 G6 Intro Kit (Gen 5)) cartridge (19 sources) Start: 05-16-2023 End: 07-25-2024 Insulin Pump Cart,Auto,Bt-Cntr (Omnipod 5 G6 Intro Kit (Gen 5)) cartridge Discontinued 0 .Route 1 0 May 16, 2023 9:41am July 25, 2024 8:14am As directed Start: 05-16-2023 End: 07-25-2024 Insulin Pump Cart,Auto,Bt-Cn tr (Omnipod 5 G6 Intro Kit (Gen 5)) cartridge Discontinued 0 .Route 1 May 16, 2023 9:41am July 25, 2024 8:14am As directed Start: 05-16-2023 Insulin Pump C art,Auto,Bt-Cntr (Omnipod 5 G6 Intro Kit (Gen 5)) cartridge Active 0 .Route 1 May 16, 2023 9:41am As directed Start: 05-16-2023 Insulin Pump C art,Auto,Bt-Cntr (Omnipod 5 G6 Intro Kit (Gen 5)) cartridge Active 0 .Route 1 May 16, 2023 8:41am As directed Start: 11-15-2022 End: 05-16-2023 Insulin Pump Cart,Auto,Bt-Cn tr (Omnipod 5 G6 Intro Kit (Gen 5)) cartridge Discontinued 0 .Route 1 November 15, 2022 12:00am May 16, 2023 9:41am As directed Start: 11-15-2022 End: 05-16-2023 Insulin Pump Cart,Auto,Bt-Cn tr (Omnipod 5 G6 Intro Kit (Gen 5)) cartridge Discontinued 0 .Route 1 November 15, 2022 12:00am May 16, 2023 9:41am As directed Start: 11-15-2022 End: 05-16-2023 Insulin Pump Cart,Auto,Bt-Cn tr (Omnipod 5 G6 Intro Kit (Gen 5)) cartridge Discontinued 0 .Route 1 2022 11:00pm May 16, 2023 8:41am As directed Start: 11-15-2022 Insulin Pump C art,Auto,Bt-Cntr (Omnipod 5 G6 Intro Kit (Gen 5)) cartridge Active 0 .Route 1 2022 11:00pm As directed Start: 11-15-2022 Insulin Pump C art,Auto,Bt-Cntr (Omnipod 5 G6 Intro Kit (Gen 5)) cartridge Active 0 .Route 1 November 15, 2022 12:00am As directed Insulin Pump Cart,Automated, Bt (Omnipod 5 G6 Pods (Gen 5)) cartridge (3 sources) Start: 07-31-2023 End: 01-25-2024 Insulin Pump Cart,Automated, Bt (Omnipod 5 G6 Pods (Gen 5)) cartridge Discontinued 0 .Route 15 July 31, 2023 12:00am January 25, 2024 8:25am Type 1 diabetes mellitus Type 1 diabetes mellitus with hyperglycemia 1 pod q 48-72 hr Start: 07-31-2023 End: 01-25-2024 Insulin Pump Cart,Automated, Bt (Omnipod 5 G6 Pods (Gen 5)) cartridge Discontinued 0 .Route July 31, 2023 12:00am January 25, 2024 8:25am 1 pod q 48-72 hr Insulin Pump Cart,Automated, Bt cartridge (3 sources) Start: 01-25-2024 End: 12-11-2024 Insulin Pump Cart,Automated, Bt cartridge Discontinued 0 .Route 15 January 25, 2024 8:25am December 11, 2024 10:30am Type 1 diabetes mellitus Type 1 diabetes mellitus with hyperglycemia 1 pod q 48-72 hr Start: 01-25-2024 Insulin Pump C art,Automated,Bt cartridge Active 0 .Route 15 January 25, 2024 8:25am Type 1 diabetes mellitus Type 1 diabetes mellitus with hyperglycemia 1 pod q 48-72 hr Start: 01-25-2024 Insulin Pump C art,Automated,Bt cartridge Active 0 .Route January 25, 2024 8:25am 1 pod q 48-72 hr Insulin Pump Cart,Cont Inf,B t (Omnipod Dash Pods (Gen 4)) cartridge (20 sources) Start: 05-29-2023 End: 07-31-2023 Insulin Pump Cart,Cont Inf,B t (Omnipod Dash Pods (Gen 4)) cartridge Discontinued 0 .Route 30 May 29, 2023 4:52pm July 31, 2023 1:34pm change every 3 days Start: 05-29-2023 End: 07-31-2023 Insulin Pump Cart,Cont Inf,B t (Omnipod Dash Pods (Gen 4)) cartridge Discontinued 0 .Route May 29, 2023 4:52pm July 31, 2023 1:34pm change every 3 days Start: 05-29-2023 Insulin Pump C art,Cont Inf,Bt (Omnipod Dash Pods (Gen 4)) cartridge Active 0 .Route May 29, 2023 4:52pm change every 3 days Start: 05-29-2023 Insulin Pump C art,Cont Inf,Bt (Omnipod Dash Pods (Gen 4)) cartridge Active 0 .Route May 29, 2023 3:52pm change every 3 days Start: 05-29-2023 End: 05-29-2023 Insulin Pump Cart,Cont Inf,B t (Omnipod Dash Pods (Gen 4)) cartridge Discontinued 0 .Route 30 May 29, 2023 4:51pm May 29, 2023 4:52pm change every 3 days Start: 05-29-2023 End: 05-29-2023 Insulin Pump Cart,Cont Inf,B t (Omnipod Dash Pods (Gen 4)) cartridge Discontinued 0 .Route May 29, 2023 4:51pm May 29, 2023 4:52pm change every 3 days Start: 05-29-2023 End: 05-29-2023 Insulin Pump Cart,Cont Inf,B t (Omnipod Dash Pods (Gen 4)) cartridge Discontinued 0 .Route May 29, 2023 3:51pm May 29, 2023 3:52pm change every 3 days Start: 04-18-2023 End: 07-31-2023 Insulin Pump Cart,Cont Inf,B t (Omnipod Dash Pods (Gen 4)) cartridge Discontinued 0 .Route April 18, 2023 1:00am July 31, 2023 1:34pm As directed Start: 04-18-2023 Insulin Pump C art,Cont Inf,Bt (Omnipod Dash Pods (Gen 4)) cartridge Active 0 .Route April 18, 2023 1:00am As directed Start: 04-18-2023 Insulin Pump C art,Cont Inf,Bt (Omnipod Dash Pods (Gen 4)) cartridge Active 0 .Route April 18, 2023 12:00am As directed Start: 04-18-2023 Insulin Pump C art,Cont Inf,Bt (Omnipod Dash Pods (Gen 4)) cartridge Active 0 .ROUTE April 18, 2023 12:00am As directed Start: 03-27-2023 End: 05-29-2023 Insulin Pump Cart,Cont Inf,B t (Omnipod Dash Pods (Gen 4)) cartridge Discontinued 0 .Route 30 March 27, 2023 2:57pm May 29, 2023 4:52pm change every 3 days Start: 03-27-2023 End: 05-29-2023 Insulin Pump Cart,Cont Inf,B t (Omnipod Dash Pods (Gen 4)) cartridge Discontinued 0 .Route March 27, 2023 2:57pm May 29, 2023 4:52pm change every 3 days Start: 03-27-2023 End: 05-29-2023 Insulin Pump Cart,Cont Inf,B t (Omnipod Dash Pods (Gen 4)) cartridge Discontinued 0 .Route March 27, 2023 1:57pm May 29, 2023 3:52pm change every 3 days Start: 03-27-2023 Insulin Pump C art,Cont Inf,Bt (Omnipod Dash Pods (Gen 4)) cartridge Active 0 .Route March 27, 2023 1:57pm change every 3 days Start: 02-27-2023 End: 03-27-2023 Insulin Pump Cart,Cont Inf,B t (Omnipod Dash Pods (Gen 4)) cartridge Discontinued 0 .Route 30 February 27, 2023 2:25pm March 27, 2023 2:58pm change every 3 days Start: 02-27-2023 End: 03-27-2023 Insulin Pump Cart,Cont Inf,B t (Omnipod Dash Pods (Gen 4)) cartridge Discontinued 0 .Route February 27, 2023 2:25pm March 27, 2023 2:58pm change every 3 days Start: 02-27-2023 End: 03-27-2023 Insulin Pump Cart,Cont Inf,B t (Omnipod Dash Pods (Gen 4)) cartridge Discontinued 0 .Route February 27, 2023 1:25pm March 27, 2023 1:58pm change every 3 days Start: 02-27-2023 Insulin Pump C art,Cont Inf,Bt (Omnipod Dash Pods (Gen 4)) cartridge Active 0 .Route February 27, 2023 1:25pm change every 3 days Start: 09-13-2022 End: 02-27-2023 Insulin Pump Cart,Cont Inf,B t (Omnipod Dash Pods (Gen 4)) cartridge Discontinued 0 .Route 30 September 13, 2022 2:50pm February 27, 2023 2:25pm change every 3 days Start: 09-13-2022 End: 02-27-2023 Insulin Pump Cart,Cont Inf,B t (Omnipod Dash Pods (Gen 4)) cartridge Discontinued 0 .Route September 13, 2022 2:50pm February 27, 2023 2:25pm change every 3 days Start: 09-13-2022 End: 02-27-2023 Insulin Pump Cart,Cont Inf,B t (Omnipod Dash Pods (Gen 4)) cartridge Discontinued 0 .Route September 13, 2022 1:50pm February 27, 2023 1:25pm change every 3 days Start: 09-13-2022 Insulin Pump C art,Cont Inf,Bt (Omnipod Dash Pods (Gen 4)) cartridge Active 0 .Route September 13, 2022 2:50pm change every 3 days Start: 07-04-2022 End: 09-13-2022 Insulin Pump Cart,Cont Inf,B t (Omnipod Dash Pods (Gen 4)) cartridge Discontinued 0 .Route 30 July 04, 2022 12:58pm September 13, 2022 2:50pm change every 3 days Start: 07-04-2022 End: 09-13-2022 Insulin Pump Cart,Cont Inf,B t (Omnipod Dash Pods (Gen 4)) cartridge Discontinued 0 .Route July 04, 2022 11:58am September 13, 2022 1:50pm change every 3 days Start: 07-04-2022 End: 09-13-2022 Insulin Pump Cart,Cont Inf,B t (Omnipod Dash Pods (Gen 4)) cartridge Discontinued 0 .Route July 04, 2022 12:58pm September 13, 2022 2:50pm change every 3 days Start: 01-14-2022 End: 07-04-2022 Insulin Pump Cart,Cont Inf,B t (Omnipod Dash Pods (Gen 4)) cartridge Discontinued 0 .Route 30 January 14, 2022 12:00am July 04, 2022 12:58pm change every 3 days Start: 01-14-2022 End: 07-04-2022 Insulin Pump Cart,Cont Inf,B t (Omnipod Dash Pods (Gen 4)) cartridge Discontinued 0 .Route January 13, 2022 11:00pm July 04, 2022 11:58am change every 3 days Start: 01-14-2022 End: 07-04-2022 Insulin Pump Cart,Cont Inf,B t (Omnipod Dash Pods (Gen 4)) cartridge Discontinued 0 .Route January 14, 2022 12:00am July 04, 2022 12:58pm change every 3 days Start: 01-14-2022 Insulin Pump C art,Cont Inf,Bt (Omnipod Dash Pods (Gen 4)) cartridge Active 0 .Route January 13, 2022 11:00pm change every 3 days levoFLOXacin 500 mg oral tablet (3 sources) Quinolone Antimicrobial Start: 06-29-2023 End: 09-19-2023 take 1 tablet by mouth once daily Levofloxacin 500 mg tablet Discontinued 500 mg PO DAILY 14 14 0 June 29, 2023 12:00am September 19, 2023 8:27am levothyroxine sodium 0.125 mg oral tablet (20 sources) l-Thyroxine Start: 07-20-2022 End: 07-25-2024 take 1 tablet by mouth once daily Levothyroxine 125 mcg tablet Discontinued 125 ug PO DAILY 90 December 15, 2022 1:08pm September 19, 2023 8:28am Start: 08-17-2021 End: 07-20-2022 take 1 tablet by mouth once daily Levothyroxine 112 mcg tablet Discontinued 112 ug PO DAILY 90 July 04, 2022 1:11pm July 20, 2022 9:11am Start: 11-06-2018 levothyroxine 125 mcg (0.125 mg) oral tablet Dose : 125 mcg = 1 tab(s), Oral, qDay, # 90 tab(s), 0 Refill(s) Start Date: 11/06/18 Status: Ordered Medication Dispense Status: Completed Quantity: 90.0 Unit: tab(s) Total Allowed Fills: 1 Fills Dispensed: 0 Start: 03-06-2015 End: 08-17-2021 take 1 tablet by mouth once daily Levothyroxine 125 mcg tablet Discontinued 125 ug PO DAILY 90 September 02, 2020 8:11am August 17, 2021 8:17am Hypothyroidism, unspecified meloxicam 15 mg oral tablet (20 sources) Nonsteroidal Anti-inflammatory Drug Start: 12-17-2018 End: 05-14-2019 take 1 tablet by mouth once daily Meloxicam 15 mg tablet Discontinued 15 mg PO DAILY 30 December 17, 2018 12:00am May 14, 2019 4:22pm methylPREDNISolone 4 mg oral tablet (16 sources) Corticosteroid Start: 12-28-2021 End: 02-09-2022 take 1 tablet by mouth once Methylprednisolone (Medrol (Rupert)) 4 mg tablets,dose pack Discontinued 0 PO per package directions 21 December 28, 2021 12:00am February 09, 2022 9:22am PO PER PKG DIR predniSONE 20 mg oral tablet (17 sources) Start: 11-23-2021 End: 11-30-2021 take 2 tablets by mouth once daily Prednisone 20 mg tablet Discontinued 40 mg PO DAILY 8 November 23, 2021 12:00am November 30, 2021 1:19pm Start: 11-23-2021 End: 11-30-2021 take 40 mg by mouth once daily Prednisone Discontinued 40 MG PO DAILY November 23, 2021 12:00am November 30, 2021 1:19pm pregabalin 50 mg oral capsule (20 sources) Start: 06-24-2019 End: 02-09-2022 take 1 capsule by mouth twice daily Pregabalin (Lyrica) 50 mg capsule Discontinued 50 mg PO TWICE A DAY 60 3 February 12, 2020 9:54am February 09, 2022 9:28am Type 1 diabetes mellitus with diabetic polyneuropathy rivaroxaban 10 mg oral tablet (20 sources) Factor Xa Inhibitor Start: 04-09-2015 End: 03-15-2017 take 1 tablet by mouth once daily in the morning Rivaroxaban 10 MG tablet Discontinued 10 mg PO DAILY 14 0 April 09, 2015 1:00am March 15, 2017 3:19pm first dose 04/10/15 am simvastatin 20 mg oral tablet (20 sources) HMG-CoA Reductase Inhibitor Start: 05-16-2019 End: 04-18-2023 take 1 tablet by mouth at bedtime Simvastatin Discontinued 0 .ROUTE .COMPLEX 90 May 02, 2022 10:13am April 18, 2023 12:30pm TAKE 1 TABLET BY MOUTH AT BEDTIME Start: 03-06-2015 End: 04-18-2023 simvastatin 20 mg oral table t Dose : 20 mg = 1 tab(s), Oral, qHS, # 90 tab(s), 0 Refill(s) Start Date: 11/06/18 Status: Ordered Medication Dispense Status: Completed Quantity: 90.0 Unit: tab(s) Total Allowed Fills: 1 Fills Dispensed: 0 Problems Active Problems Problem Classification Problem Date Documented Da te Episodic/Chronic Abdominal pain (20 sources) Left lower quadrant pain; Translations: [Epigastric pain] Onset: 8 Episodic Allergic reactions (20 sources) Inflammatory dermatosis; Translations: [Dermatitis, unspecified] 12-01-2021 Episodic Anxiety disorders (20 sources) Mixed anxiety and depressive disorder; Translations: [Anxiety disorder, unspecified] Chronic Comment on above: ON MED Appendicitis and other appendiceal conditions (20 sources) Acute appendicitis; Translations: [Unspecified acute appendicitis] 09-28-2022 Episodic Chronic ulcer of skin (20 sources) Ulcer of lower extremity; Translations: [Non-pressure chronic ulcer of unspecified part of left lower leg with fat layer exposed] 03-01-2023 Chronic Complication of device; implant or graft (5 sources) Pain due to internal prosthetic device; Translations: [Pain due to internal orthopedic prosthetic devices, implants and grafts, initial encounter] 06-21-2023 Episodic Deficiency and other anemia (5 sources) Anemia; Translations: [Anemia, unspecified] 07-26-2024 Episodic Diabetes mellitus with complications (20 sources) Type 2 diabetes mellitus with foot ulcer; Translations: [Diabetic ulcer of left foot] Onset: 5 Chronic Diabetes mellitus without complication (20 sources) Type 1 diabetes mellitus; Translations: [Type 1 diabetes mellitus without complications] Chronic Disorders of lipid metabolism (20 sources) Hyperlipidemia; Translations: [Hyperlipidemia, unspecified] 03-19-2017 Chronic Esophageal disorders (8 sources) Gastroesophageal reflux disease; Translations: [Gastro-esophageal reflux disease without esophagitis] 06-14-2023 Chronic Essential hypertension (20 sources) Hypertensive disorder; Translations: [Essential (primary) hypertension] Onset: 5 Chronic Fluid and electrolyte disorders (19 sources) Metabolic acidosis; Translations: [Metabolic acidosis] 09-29-2022 Episodic Immunizations and screening for infectious disease (17 sources) Needs influenza immunization; Translations: [Encounter for immunization] 02-09-2022 Episodic Infective arthritis and osteomyelitis (except that caused by tuberculosis or sexually transmitted disease) (20 sources) Chronic osteomyelitis of left foot; Translations: [Other chronic osteomyelitis, left ankle and foot] 03-08-2023 Chronic Mood disorders (20 sources) Depressive disorder; Translations: [Depression] 12-17-2020 Chronic Nausea and vomiting (20 sources) Nausea and vomiting; Translations: [Nausea with vomiting, unspecified] 07-17-2020 Episodic Nutritional deficiencies (7 sources) Vitamin D deficiency; Translations: [Vitamin D deficiency, unspecified] 05-25-2023 Chronic Open wounds of extremities (2 sources) Laceration of finger without foreign body; Translations: [Laceration without foreign body of unspecified finger without damage to nail, initial encounter] Onset: 5 Episodic Other circulatory disease (20 sources) Prehypertension; Translations: [Elevated blood-pressure reading, without diagnosis of hypertension] 01-08-2018 Episodic Other connective tissue disease (9 sources) Contracture of Achilles tendon; Translations: [Short Achilles tendon (acquired), left ankle] 03-01-2023 Episodic Other connective tissue disease (7 sources) Short Achilles tendon (acquired), left ankle; Translations: [Contracture of tendon (sheath)] 03-09-2023 Episodic Other connective tissue disease (8 sources) Foot pain; Translations: [Pain in left foot] 03-30-2023 Episodic Other connective tissue disease (5 sources) Pain in left foot; Translations: [Pain in limb] 04-13-2023 Episodic Other connective tissue disease (4 sources) Acquired short Achilles tendon; Translations: [Short Achilles tendon (acquired), left ankle] 06-21-2023 Episodic Other connective tissue disease (2 sources) Triggering of digit; Translations: [Trigger finger, unspecified finger] 11-15-2024 Episodic Other gastrointestinal disorders (4 sources) Passing flatus; Translations: [Flatulence] 07-03-2024 Episodic Other lower respiratory disease (1 source) Shortness of breath; Translations: [Shortness of breath] Episodic Other nervous system disorders (1 source) Other chronic pain; Translations: [Other chronic pain] Onset: 5 Chronic Other nervous system disorders (4 sources) Acute postoperative pain; Translations: [Other acute postprocedural pain] 06-21-2023 Episodic Other nervous system disorders (3 sources) Paresthesia; Translations: [Paresthesia of skin] 02-14-2024 Episodic Other non-traumatic joint disorders (6 sources) Pain in right knee; Translations: [Pain in both knees] Onset: 5 07-03-2024 Episodic Other non-traumatic joint disorders (3 sources) Hip pain; Translations: [Pain in left hip] 11-15-2024 Episodic Other non-traumatic joint disorders (2 sources) Pain in left hip; Translations: [Pain in left hip] Onset: 5 Episodic Other non-traumatic joint disorders (2 sources) Pain in left knee; Translations: [Pain in left knee] Onset: 5 Episodic Other nutritional; endocrine; and metabolic disorders (20 sources) Obesity; Translations: [Obesity, unspecified] 12-17-2020 Chronic Other nutritional; endocrine; and metabolic disorders (11 sources) Obesity, unspecified; Translations: [Obesity, unspecified] 07-20-2022 Chronic Other nutritional; endocrine; and metabolic disorders (1 source) Other obesity due to excess calories; Translations: [Other obesity due to excess calories] Onset: 5 Chronic Other nutritional; endocrine; and metabolic disorders (1 source) Body mass index (BMI) 34.0-34.9, adult; Translations: [Body mass index [BMI] 34.0-34.9, adult] Onset: 5 Chronic Other upper respiratory infections (20 sources) Upper respiratory infection; Translations: [Acute upper respiratory infection, unspecified] Episodic Residual codes; unclassified (19 sources) Acquired absence of other specified parts of digestive tract; Translations: [Status post laparoscopic appendectomy] 09-30-2022 Episodic Comment on above: 09/2022 Residual codes; unclassified (11 sources) Insomnia; Translations: [Insomnia, unspecified] 11-21-2022 Episodic Residual codes; unclassified (9 sources) Insomnia, unspecified; Translations: [Insomnia, unspecified] 11-21-2022 Episodic Skin and subcutaneous tissue infections (20 sources) Furuncle of upper arm; Translations: [Furuncle of limb, unspecified] 03-17-2017 Episodic Spondylosis; intervertebral disc disorders; other back problems (2 sources) Chronic back pain ; Translations: [Dorsalgia, unspecified] Onset: 5 12-16-2024 Episodic Thyroid disorders (20 sources) 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; Translations: [Other specified hypothyroidism] Onset: 5 Chronic Unclassified (20 sources) Encounter for screening mammogram for malignant neoplasm of breast; Translations: [Patient encounter status] Onset: 8 Episodic Unclassified (2 sources) Encounter for screening for malignant neoplasm of colon Unclassified (4 sources) Z12.11 - Encounter for screening for malignant neoplasm of colon Unclassified (2 sources) Encounter for health maintenance examination Unclassified (2 sources) Z00.00 - Encounter for general adult medical examination without abnormal findings Past or Other Problems Problem Classification Problem Date Documented Da te Episodic/Chronic Diabetes mellitus without complication (20 sources) Insulin pump present; Translations: [Presence of insulin pump (external) (internal)] Onset: 07-25-2024 Episodic Nonspecific chest pain (7 sources) Chest pain, unspecified; Translations: [Chest pain, unspecified] Onset: 08-08-2024 Episodic Other aftercare (1 source) 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; Translations: [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] Onset: 07-25-2024 Episodic Other connective tissue disease (1 source) Other symptoms and signs involving the nervous system; Translations: [Other symptoms and signs involving the nervous system] Onset: 05-21-2024 Episodic Unclassified (17 sources) bilat eye surgery 10-28-2021 Unclassified (17 sources) great toe fusion 10-28-2021 Unclassified (17 sources) nonhealing plantar l foot wound 10-28-2021 Unclassified (17 sources) novasure 10-28-2021 Unclassified (17 sources) open wound of toes 10-28-2021 Results Test Name Value Interpretation Reference Range Facility Breast imaging reportOrdered By: Marcela Penaloza on 12-13-2024 Study report [facility] Services [address] [place] [address] SCRN MAMM (CAD)W/BAILEY FRANKLYNAT MR#: [id number] Acct: [id number] Name: FAY LEES Rep #: [id number] : 1965 F 59 From: Tasha Penaloza MD PCP: Dr. Laura Steele MD Status: R EG CLI Study:SCRN MAMM (CAD)W/BAILEY BILAT Date of Exa m: 12/13/24 Exam# [id number] Ordering Dr: Fortunato Steele MD EXAM: SCRN MAMM (CAD)W/BAILEY BILAT DATE: 12/13/2024 CLINICAL HISTORY: F, Age 59 y/o , BREAST CANCER SCREENING TECHNIQUE: Procedure Code: BISMWCADBTOM Modality: MG Procedure: SCRN MAMM (CAD)W/BAILEY BILAT COMPARISON: Prior exam(s) dated 09/13/2021. FINDINGS: TISSUE DENSITY: There are scattered areas of fibroglandular density. Bilateral Breast Mammographic Findings: No significant masses, calcifications or other abnormalities are identified. BI/SCRN MAMM (CAD)W/BAILEY BILAT IMPRESSION: There is no mammographic evidence of malignancy. OVERALL FINAL ASSESSMENT BI-RADS 1: NEGATIVE. RECOMMENDATION: Routine annual follow-up in 1 Year A letter with findings and recommendations will be mailed to the patient. Reading Location: [facility] CC: Dr. Laura Steele MD ~ [employer]: Signed [facility] HIP, UNI W/ Pelvis 2-3 Views on 12-13-2024 HIP, UNI W/ Pelvis 2-3 Views [facility] Imaging Services [address] [place], [place] [id number] HIP, UNI W/ Pelvis 2-3 Views MR#: [id number] Acct: [id number] Name: FAY LEES Rep #: [id number] : 1965 F 59 From: Moe Loja MD PCP: Dr. Laura Steele MD Status: REG CLI Study: HIP, UNI W/ Pelvis 2-3 Views Date of Exam: 09/01 Exam# [id number] Ordering Dr: Laura Steele MD PROCEDURE: HIP, UNI W/ PELVIS 2-3 VIEWS 12/13/2024 REASON FOR EXAM: LEFT HIP PAIN TECHNIQUE: Procedure Code: RADHP Modality: DX Procedure: HIP, UNI W/ PELVIS 2-3 VIEWS Laterality: Left COMPARISON: None FINDINGS: The pelvis is intact. Mild hip joint space narrowing is noted, jaobw-kjfssjr-kwry-left. Symphysis pubis and sacroiliac joints are unremarkable. There is no acute fracture or dislocation noted. Atherosclerotic vascular calcifications are present. RAD/HIP, UNI W/ Pelvis 2-3 Views IMPRESSION: Mild degenerative changes. No acute fracture or dislocation. Reading Location: [facility] CC: Dr. Laura Steele MD [employer]: Signed Normal [facility] Knee 4 or More Viewson 12-13 Knee 4 or More Views [facility] Imaging [facility] [address] [place] [address] Knee 4 or More Views MR#: [id number] Acct: [id number] Name: FAY LEES Rep #: [id number] : 1965 F 59 From: Moe Loja MD PCP: Dr. Laura Steele MD Status: REG CLI Study: Knee 4 or More Views Date of Exam: 12/13/24 Exam# [id number] Ordering Dr: Laura Steele MD PROCEDURE: KNEE 4 OR MORE VIEWS 12/13/2024 REASON FOR EXAM: BILATERAL KNEE PAIN TECHNIQUE: Procedure Code: RADKN Modality: DX Procedure: KNEE 4 OR MORE VIEWS Laterality: COMPARISON: None FINDINGS: There is no acute fracture or dislocation. Alignment is unremarkable. No significant joint fluid. Soft tissues are unremarkable. RAD/Knee 4 or More Views IMPRESSION: No significant abnormality. Reading Location: [facility] CC: Dr. Laura Steele MD [employer]: Signed Normal [facility] Knee 4 or More Views [facility] Imaging Services [address] [place] [address] Knee 4 or More Views MR#: [id number] Acct: [id number] Name: FAY LEES Rep #: [id number] : 1965 F 59 From: Moe Loja MD PCP: Dr. Laura Steele MD Status: REG CLI Study: Knee 4 or More Views Date of Exam: 12/13/24 Exam# [id number] Ordering Dr: Laura Steele MD PROCEDURE: KNEE 4 OR MORE VIEWS 12/13/2024 REASON FOR EXAM: BILATERAL KNEE PAIN TECHNIQUE: Procedure Code: RADKN Modality: DX Procedure: KNEE 4 OR MORE VIEWS Laterality: Left COMPARISON: None FINDINGS: There is mild medial compartment joint space narrowing. There is no acute fracture or dislocation. Soft tissues are within normal limits. RAD/Knee 4 or More Views IMPRESSION: Minimal medial compartment joint space narrowing. Reading Location: [facility] CC: Dr. Laura Steele MD [employer]: Signed Normal [facility] SCRN MAMM (CAD)W/BAILEY BILATo n 12-13-2024 SCRN MAMM (CAD)W/BAILEY BILAT [facility] Imaging Services [address] [place], [place] [address] SCRN MAMM (CAD)W/BAILEY BILAT MR#: [id number] Acct: [id number] Name: FAY LEES Rep #: [id number] : 1965 F 59 From: Marcela Penaloza MD PCP: Dr. Laura Steele MD Status: REG CLI Study: SCRN MAMM (CAD)W/BAILEY BILAT Date of Exam: 09/01 Exam# [id number] Ordering Dr: Laura Steele MD EXAM: SCRN MAMM (CAD)W/BAILEY BILAT DATE: 12/13/2024 CLINICAL HISTORY: F, Age 59 y/o , BREAST CANCER SCREENING TECHNIQUE: Procedure Code: BISMWCADBTOM Modality: MG Procedure: SCRN MAMM (CAD)W/BAILEY BILAT COMPARISON: Prior exam(s) dated 09/13/2021. FINDINGS: TISSUE DENSITY: There are scattered areas of fibroglandular density. Bilateral Breast Mammographic Findings: No significant masses, calcifications or other abnormalities are identified. BI/SCRN MAMM (CAD)W/BAILEY BILAT IMPRESSION: There is no mammographic evidence of malignancy. OVERALL FINAL ASSESSMENT BI-RADS 1: NEGATIVE. RECOMMENDATION: Routine annual follow-up in 1 Year A letter with findings and recommendations will be mailed to the patient. Reading Location: [id number] CC: Dr. Laura Steele MD [employer]: Signed Normal [facility] Internal Medicine Office Vis ito 11-15-2024 Internal Medicine Office Visit [facility] [address] [place] [address] [place] [address] OFFICE VISIT Date of Service: 11/15/24 MR#: [id number] Acct: [id number] Name: FAY LEES Rep #: [id number] : 1965 Provider: Dr. 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 Accompanied by: Son Is patient in pain?: No Allergies codeine Adverse Reaction (Verified 11/15/24 07:47) Vomiting Medications ???Medication ???Instructions ???Recorded ???Confirmed ???Type insulin pump syringe 1.8 mL 01/23/18 11/15/24 History acetaminophen 325 mg tablet 650 mg (2 x 325 mg) PO Q4H PRN PRN 09/29/22 11/15/24 Rx Pain 1-10/Fever #0 tabs trazodone 50 mg tablet 25 mg (1/2 x 50 mg) PO QHS PRN 07/3111/15/24 Rx insomnia #90 tabs hydroxyzine HCl 25 mg tablet 25 mg PO PRN PRN anxiety 04/18/23 11/15/24 History simvastatin 20 mg tablet 20 mg PO QHS 04/18/23 11/15/24 His tory ondansetron 4 mg disintegrating 4 mg PO Q8H PRN nausea and 4 11/15/24 Rx tablet vomiting #60 tabs sucralfate 1 gram tablet (Carafate) 1 g PO QACHS 1 month #120 tabs 06/14/23 11/15/24 Rx ascorbic acid (vitamin C) 1,000 mg 1 g PO DAILY 90 days #90 tabs 11/15/24 Rx tablet (Vitamin C) aspirin 81 mg tablet,delayed 81 mg PO DAILY 30 days #30 tabs 11/15/24 Rx release calcium 500 mg (as 1 tab PO DAILY 90 days #90 tabs 11/15/24 Rx carbonate)-vitamin D3 15 mcg (600 unit) tablet (Os-Natacha 500 + D3) insulin pump cart,automated,BT #15 ea 01/25/24 11/15/24 Rx blood-glucose sensor (Dexcom G7 #9 ea 02/09/24 11/15/24 Rx Sensor device) insulin lispro 100 unit/mL 100 unit subcut .continuous #90 mL 03/20/24 11/15/24 Rx subcutaneous solution (Humalog U-100 Insulin) enalapril maleate 5 mg tablet 5 mg PO DAILY #90 tabs 06/17/24 Rx levothyroxine 125 mcg tablet 125 mcg PO DAILY #90 tabs 07/25/24 11/15/24 Rx naproxen 500 mg tablet 500 mg PO BID PRN #20 tabs 5 11/15/24 Rx buspirone 5 mg tablet 5 mg PO TID #90 tabs 08/09/24 08/12/02 Rx omeprazole 40 mg capsule,delayed 40 mg PO QDAY #90 caps 09/16/24 Rx release duloxetine 30 mg capsule,delayed 30 mg PO BID #60 caps 11/05/2412/02 Rx release PFSH Medical History (Updated 11/15/24 @ 11:[address] Laura Steele MD) Trigger finger Left hip pain Chest pain, atypical Anemia Flatulence Bilateral knee pain Colon cancer screening GERD (gastroesophageal reflux disease) Nausea Abdominal pain Wears glasses Anxiety Alcohol use Open wound Insulin dependent diabetes mellitus Uses wheelchair Dietary restriction Gastric reflux Non-smoker Shortness of breath on exertion Leg cramps History of edema Hypertension Preoperative evaluation to rule out surgical contraindication Health care maintenance Insomnia Skin picking habit Needs flu shot Breast cancer screening Anxiety and depression Obesity novasure History of endometrial biopsy bilat eye surgery great toe fusion Hyperparathyroidism open wound of toes Peripheral vascular disease of lower extremity Acute hematogenous osteomyelitis Hypothyroidism Hyperlipidemia Charcot's joint of left foot Peripheral neuropathy PVD (peripheral vascular disease) nonhealing plantar l foot wound Diabetic foot infection Diabetes type 1, controlled Surgical History Hx of appendectomy S/P laparoscopic appendectomy S/P foot surgery, left Status post bilateral foot surgery Hx of tubal ligation Hx of adenoidectomy History of tonsillectomy Hx of section S/P transmetatarsal amputation of foot Family History Mother Diabetes Father Diabetes Grandfather Diabetes Grandmother Diabetes Social History Smoking Status: Never smoker second hand exposure: No alcohol intake: current substance use type: does not use caffeine: Yes HPI HPI Chief Complaint: FU Details: FAY LEES, is a 59-year-old female presenting with chronic left hip pain and recent weakness resulting in falls. Also, follow-up of chronic conditions. The patient reports having experienced an increase in falls recently, particularly noting an incident the previous day whi (more content not included)... Normal [facility] Microalb:Creat Ratio,Random URon 09-26-2024 MALB:CREAT 10.1 mg/g CRE Normal [facility] Comment on above: Result Comment: AMENDED REPORT 09/26/24 8684 MALB:CREAT previously reported as: 100.7 mg/g CRE Performed By: #### L 500.4050, L500.4100 #### [facility] [address] [place], [address] Internal Medicine Office Vis iton 08-09-2024 Internal Medicine Office Visit [facility] [address] [place] [address] OFFICE VISIT Date of Service: 08/09/24 MR#: [id number] Acct: [id number] Name: FAY LEES Rep #: [id number] : 1965 Provider: Dr. 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 Accompanied by: Self Is patient in pain?: Yes (chest ) Pain scale (1-10): 7 Allergies codeine Adverse Reaction (Verified 08/09/24 13:59) Vomiting Medications ???Medication ???Instructions ???Recorded ???Confirmed ???Type insulin pump syringe 1.8 mL 01/23/18 08/09/24 History acetaminophen 325 mg tablet 650 mg (2 x 325 mg) PO Q4H PRN PRN 09/29/22 08/09/24 Rx Pain 1-10/Fever #0 tabs trazodone 50 mg tablet 25 mg (1/2 x 50 mg) PO QHS PRN 07/3108/09/24 Rx insomnia #90 tabs hydroxyzine HCl 25 mg tablet 25 mg PO PRN PRN anxiety 04/18/23 08/09/24 History simvastatin 20 mg tablet 20 mg PO QHS 04/18/23 08/09/24 His tory ondansetron 4 mg disintegrating 4 mg PO Q8H PRN nausea and 4 08/09/24 Rx tablet vomiting #60 tabs sucralfate 1 gram tablet (Carafate) 1 g PO QACHS 1 month #120 tabs 06/14/23 08/09/24 Rx ascorbic acid (vitamin C) 1,000 mg 1 g PO DAILY 90 days #90 tabs 08/09/24 Rx tablet (Vitamin C) aspirin 81 mg tablet,delayed 81 mg PO DAILY 30 days #30 tabs 08/09/24 Rx release calcium 500 mg (as 1 tab PO DAILY 90 days #90 tabs 08/09/24 Rx carbonate)-vitamin D3 15 mcg (600 unit) tablet (Os-Natacha 500 + D3) omeprazole 40 mg capsule,delayed 40 mg PO QDAY #90 caps 12/25/23 Rx release insulin pump cart,automated,BT #15 ea 01/25/24 08/09/24 Rx blood-glucose sensor (Dexcom G7 #9 ea 02/09/24 08/09/24 Rx Sensor device) insulin lispro 100 unit/mL 100 unit subcut .continuous #90 mL 03/20/24 08/09/24 Rx subcutaneous solution (Humalog U-100 Insulin) enalapril maleate 5 mg tablet 5 mg PO DAILY #90 tabs 06/17/24 Rx levothyroxine 125 mcg tablet 125 mcg PO DAILY #90 tabs 07/25/24 08/09/24 Rx naproxen 500 mg tablet 500 mg PO BID PRN #20 tabs 5 08/09/24 Rx buspirone 5 mg tablet 5 mg PO TID #90 tabs 08/09/2406/04 Rx duloxetine 30 mg capsule,delayed 30 mg PO BID #60 caps 08/09/2406/04 Rx release Have you fallen in the past year?: No [facility] Medical History (Updated 08/09/24 @ 17:[address] Laura Steele MD) Chest pain, atypical Anemia Flatulence Bilateral knee pain Colon cancer screening GERD (gastroesophageal reflux disease) Nausea Abdominal pain Wears glasses Anxiety Alcohol use Open wound Insulin dependent diabetes mellitus Uses wheelchair Dietary restriction Gastric reflux Non-smoker Shortness of breath on exertion Leg cramps History of edema Hypertension Preoperative evaluation to rule out surgical contraindication Health care maintenance Insomnia Skin picking habit Needs flu shot Breast cancer screening Anxiety and depression Obesity novasure History of endometrial biopsy bilat eye surgery great toe fusion Hyperparathyroidism open wound of toes Peripheral vascular disease of lower extremity Acute hematogenous osteomyelitis Hypothyroidism Hyperlipidemia Charcot's joint of left foot Peripheral neuropathy PVD (peripheral vascular disease) nonhealing plantar l foot wound Diabetic foot infection Diabetes type 1, controlled Surgical History Hx of appendectomy S/P laparoscopic appendectomy S/P foot surgery, left Status post bilateral foot surgery Hx of tubal ligation Hx of adenoidectomy History of tonsillectomy Hx of section S/P transmetatarsal amputation of foot Family History Mother Diabetes Father Diabetes Grandfather Diabetes Grandmother Diabetes Social History Smoking Status: Never smoker second hand exposure: No alcohol intake: current substance use type: does not use caffeine: Yes HPI HPI Chief Complaint: Chest pain fu Details: FAY LEES, is a 58 F who presents to the office today for follow-up. Status post recent ER visit. Presented to the emergency room due to chest pain. [place] pain on both sides. Sharp stabbing pain which started all of a sudden. Was under a (more content not included)... Normal [facility] 12 Lead EKGon 08-05-2024 12 Lead EKG [facility] Cardiovascular Services [address] [place] [address] 12 Lead EKG 08/05/24 0714 MR#: [id number] Acct: [id number] Name: FAY LEES Rep #: [id number] : 1965 58 From: Jolanta Arizmendi MD Attending Dr: Status: DEP ER Ordering Dr: Papa Smith DO Date: 08/05/24 Location: ED Sex: F C Admitted: Test Reason : Blood Pressure : */* mmHG Vent. Rate : 85 BPM Atrial Rate : 85 BPM P-R Int : 140 ms QRS Dur : 80 ms QT Int : 376 ms P-R-T Axes : 46 -21 20 degrees QTcB Int : 447 ms Normal sinus rhythm Low voltage QRS Borderline ECG Confirmed by OSORIO QUINTANA, JOY ([id number]), development editor SULEIMAN CANO ([id number]) on 08/07/2024 11:44:02 AM Referred By: Confirmed By: JOY ARIZMENDI MD 08/07/24 1144 Date Jolanta Arizmendi MD CC: Dr. Papa Smith DO; Dr. Laura Steele MD Signed Normal [facility] Absolute lymphocyte countOrd ered By: Papa Smith on 08-05-2024 Lymphocytes Auto (Unsp spec) [#/Vol] 1.75 10*3/uL 0.83-4.51 [facility] Absolute neutrophil countOrd ered By: Papa Smith on 08-05-2024 Neutrophils (Bld) [#/Vol] 5.3 10*3/uL 2.0-7.7 [facility] Anion gap in Serum or Plasma Ordered By: Papa Smith on 08-05-2024 Anion gap [Moles/Vol] 11 mmol/L 5-15 [facility] Automated lymphocyte count a s percentage of total leukocytesOrdered By: Papa Smith on 08-05-2024 Lymphocytes/100 WBC Auto (Unsp spec) 22.3 % 19-41 [facility] BUN/creatinine ratioOrdered By: Papa Smith on 08-05-2024 Urea nitrogen/Creatinine [Mass ratio] 16.5 mg/mg 10- [facility] Basic Metabolic Profile (BMP )on 08-05-2024 BUN/CRE 16.5 RATIO Normal - [facility] Comment on above: Performed By: #### L 100.0100, L300.8000, L500.2500, L501.4021 #### [facility] [address] [place], [place], [address] Calcium [Mass/Vol] 9.0 mg/dL Normal 7.6-11.0 [facility] Comment on above: Performed By: #### L 100.0100, L300.8000, L500.2500, L501.4021 #### [facility] [address] [place], [address] Chloride [Moles/Vol] 108 mmol/L Normal 98-108 [facility] Comment on above: Performed By: #### L 100.0100, L300.8000, L500.2500, L501.4021 #### [facility] [address] [place], [address] CO2 [Moles/Vol] 21.9 mmol/L Normal 21.0-32.0 [facility] Comment on above: Performed By: #### L 100.0100, L300.8000, L500.2500, L501.4021 #### [facility] [address] [place], [address] Creatinine [Mass/Vol] 0.80 mg/dL Normal 0.70-1.20 [facility] Comment on above: Performed By: #### L 100.0100, L300.8000, L500.2500, L501.4021 #### [facility] [address] [place], [address] ECRCL 87.79 ml/min Normal 50-250 [facility] Comment on above: Performed By: #### L 100.0100, L300.8000, L500.2500, L501.4021 #### [facility] [address] [place], [address] GAP 11 Normal 5-15 [facility] Comment on above: Performed By: #### L 100.0100, L300.8000, L500.2500, L501.4021 #### [facility] [address] [place], [address] GFR/1.73 sq M.predicted among non-blacks MDRD (S/P/Bld) [Vol rate/Area] 87 mL/min/{1.73_m2} Normal >60 [facility] Comment on above: Result Comment: mL/m in/1.73m2 CKD-EPI Creatinine Equation (2020) Performed By: #### L 100.0100, L300.8000, L500.2500, L501.4021 #### [facility] [address] [place], [address] Glucose [Mass/Vol] 135 mg/dL High 70-99 [facility] Comment on above: Performed By: #### L 100.0100, L300.8000, L500.2500, L501.4021 #### [facility] [address] [place], [address] Potassium [Moles/Vol] 4.1 mmol/L Normal 3.3-5.1 [facility] Comment on above: Performed By: #### L 100.0100, L300.8000, L500.2500, L501.4021 #### [facility] [address] [place], [address] Sodium [Moles/Vol] 141 mmol/L Normal 133-145 [facility] Comment on above: Performed By: #### L 100.0100, L300.8000, L500.2500, L501.4021 #### [facility] [address] [place], [address] Urea nitrogen [Mass/Vol] 13 mg/dL Normal 4-19 [facility] Comment on above: Performed By: #### L 100.0100, L300.8000, L500.2500, L501.4021 #### [facility] [address] [place], [address] Basophil percentageOrdered B y: Papa Smith on 08-05-2024 Basophils/100 WBC (Bld) 0.9 % 0-1 [facility] CBC W/Diff, Automatedon -2 Absolute Lymph 1.75 X10 3/uL Normal 0.83-4.51 [facility] Comment on above: Performed By: #### L 100.0100, L300.8000, L500.2500, L501.4021 #### [facility] [address] [place], [address] Absolute Neut 5.3 X10 3/uL Normal 2.0-7.7 [facility] Comment on above: Performed By: #### L 100.0100, L300.8000, L500.2500, L501.4021 #### [facility] [address] [place], [address] Basophils/100 WBC (Bld) 0.9 % Normal 0-1 [facility] Comment on above: Performed By: #### L 100.0100, L300.8000, L500.2500, L501.4021 #### [facility] [address] [place], [address] Eosinophils/100 WBC (Bld) 2.0 % Normal 0-5 [facility] Comment on above: Performed By: #### L 100.0100, L300.8000, L500.2500, L501.4021 #### [facility] [address] [place], [address] Erythrocyte distribution width (RBC) [Ratio] 12.9 % Normal 11.6-14.6 [facility] Comment on above: Performed By: #### L 100.0100, L300.8000, L500.2500, L501.4021 #### [facility] [address] [place], [address] Hematocrit (Bld) [Volume fraction] 34.8 % Low 37-47 [facility] Comment on above: Performed By: #### L 100.0100, L300.8000, L500.2500, L501.4021 #### [facility] [address] [place], [address] Hemoglobin (Bld) [Mass/Vol] 11.6 g/dL Low 12.0-15.0 [facility] Comment on above: Performed By: #### L 100.0100, L300.8000, L500.2500, L501.4021 #### [facility] [address] [place], [address] IG% 0.500 Normal 0.0-0.9 [facility] Comment on above: Result Comment: IG% - Immature Granulocytes (promyelocytes, myelocytes and metamyelocytes) > 1% indicates that a LEFT SHIFT is Present. Performed By: #### L 100.0100, L300.8000, L500.2500, L501.4021 #### [facility] [address] [place], [address] Lymphocytes/100 WBC (Bld) 22.3 % Normal 19-41 [facility] Comment on above: Performed By: #### L 100.0100, L300.8000, L500.2500, L501.4021 #### [facility] [address] [place], [address] MCH (RBC) [Entitic mass] 29.4 pg Normal 27.0-32.0 [facility] Comment on above: Performed By: #### L 100.0100, L300.8000, L500.2500, L501.4021 #### [facility] [address] [place], [address] MCHC (RBC) [Mass/Vol] 33.3 g/dL Normal 32-36 [facility] Comment on above: Performed By: #### L 100.0100, L300.8000, L500.2500, L501.4021 #### [facility] [address] [place], [address] MCV (RBC) [Entitic vol] 88.1 fL Normal 81-99 [facility] Comment on above: Performed By: #### L 100.0100, L300.8000, L500.2500, L501.4021 #### [facility] [address] [place], [address] Monocytes/100 WBC (Bld) 6.3 % Normal 0-10 [facility] Comment on above: Performed By: #### L 100.0100, L300.8000, L500.2500, L501.4021 #### [facility] [address] [place], [address] Neutrophils/100 WBC (Bld) 68.0 % Normal 47-70 [facility] Comment on above: Performed By: #### L 100.0100, L300.8000, L500.2500, L501.4021 #### [facility] [address] [place], [address] Nucleated RBC (Bld) [#/Vol] 0 10*3/uL Normal 0-5 [facility] Comment on above: Performed By: #### L 100.0100, L300.8000, L500.2500, L501.4021 #### [facility] [address] [place], [address] Platelet mean volume (Bld) [Entitic vol] 10.8 fL Normal 6.2-12.0 [facility] Comment on above: Performed By: #### L 100.0100, L300.8000, L500.2500, L501.4021 #### [facility] [address] [place], [address] Platelets (Bld) [#/Vol] 233 10*3/uL Normal 150-450 [facility] Comment on above: Performed By: #### L 100.0100, L300.8000, L500.2500, L501.4021 #### [facility] [address] [place], [address] RBC (Bld)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 tonsillectomy Hx of section S/P transmetatarsal amputation of foot Family History Mother Diabetes Father Diabetes Grandfather Diabetes Grandmother Diabetes Social History Smoking Status: Never smoker second hand exposure: No alcohol intake: current substance use type: does not use caffeine: Yes HPI HPI Chief Complaint: 3 m fu Details: FAY LEES, is a 58 F who presents to the office today for follow up of her chronic conditions. Also has some concerns. Over the last couple of weeks, she reports bilate (more content not included)... Normal [facility] Basic Metabolic Profile (BMP )on 02-06-2024 BUN/CRE 22.1 RATIO High 01-27 [facility] Comment on above: Performed By: #### L 100.0100, L500.2500, L300.3900, L300.4310 #### [facility] [address] [place], [address] CA,Total 8.5 mg/dL Normal 8.5-10.1 [facility] Comment on above: Performed By: #### L 100.0100, L500.2500, L300.3900, L300.4310 #### [facility] [address] [place], [address] Chloride [Moles/Vol] 109 mmol/L High 98-107 [facility] Comment on above: Performed By: #### L 100.0100, L500.2500, L300.3900, L300.4310 #### [facility] [address] [place], [address] CO2 [Moles/Vol] 25.0 mmol/L Normal 21.0-32.0 [facility] Comment on above: Performed By: #### L 100.0100, L500.2500, L300.3900, L300.4310 #### [facility] [address] [place], [address] Creatinine [Mass/Vol] 0.72 mg/dL Normal 0.55-1.02 [facility] Comment on above: Result Comment: The validity of the calculated GFR GFRAA in patients over 70 years has not been determined. Clinical correlation is essential. Performed By: #### L 100.0100, L500.2500, L300.3900, L300.4310 #### [facility] [address] [place], [address] ECRCL 96.66 ml/min Normal [facility] Comment on above: Performed By: #### L 100.0100, L500.2500, L300.3900, L300.4310 #### [facility] [address] [place], [address] EST GFR - AA 107 mL/min Normal >60 [facility] Comment on above: Result Comment: Afri can Mal[place] GFR Calc Performed By: #### L 100.0100, L500.2500, L300.3900, L300.4310 #### [facility] [address] [place], [address] GAP 5 Normal 5-15 [facility] Comment on above: Performed By: #### L 100.0100, L500.2500, L300.3900, L300.4310 #### [facility] [address] [place], [address] GFR/1.73 sq M.predicted among non-blacks MDRD (S/P/Bld) [Vol rate/Area] 89 mL/min/{1.73_m2} Normal >60 [facility] Comment on above: Result Comment: Non- GFR Calc Performed By: #### L 100.0100, L500.2500, L300.3900, L300.4310 #### [facility] [address] [place], [address] Glucose [Mass/Vol] 124 mg/dL High 74-106 [facility] Comment on above: Result Comment: Fast ing Glucose result from 100 to 125 mg/dL suggests IMPAIRED HOMEOSTASIS per A.D.A. criteria. Performed By: #### L 100.0100, L500.2500, L300.3900, L300.4310 #### [facility] [address] [place], [address] Potassium [Moles/Vol] 4.3 mmol/L Normal 3.5-5.1 [facility] Comment on above: Performed By: #### L 100.0100, L500.2500, L300.3900, L300.4310 #### [facility] [address] [place], [address] Sodium [Moles/Vol] 139 mmol/L Normal 136-145 [facility] Comment on above: Performed By: #### L 100.0100, L500.2500, L300.3900, L300.4310 #### [facility] [address] [place], [address] Urea nitrogen [Mass/Vol] 16 mg/dL Normal 7-18 [facility] Comment on above: Performed By: #### L 100.0100, L500.2500, L300.3900, L300.4310 #### [facility] [address] [place], [address] Brain/Head without Contrasto n 02-06-2024 Brain/Head without Contrast [facility] [address] [place] [address] Brain/Head without Contrast MR#: [id number] Acct: [id number] Name: FAY LEES Rep #: [id number] : 1965 F 58 From: Charles Dozier MD PCP: Dr. Laura Steele MD Status: [facility] Study: Brain/Head without Contrast Date of Exam: 01/09 01/01 Exam# [id number] Ordering Dr: Marco A Larry DO [id number] EXAM: CT HEAD WITHOUT INTRAVENOUS CONTRAST CLINICAL INDICATION: Paresthesias TECHNIQUE: Multiple axial images were obtained of the head without intravenous contrast. This CT exam was performed using one or more of the following dose reduction techniques: automated exposure control, adjustment of the mA and/or kV according to patient size, and/or use of iterative reconstruction technique. RADIATION DOSE: CTDIvol = 47.06 mGy, DLP = 837.39 mGy-cm COMPARISON: No relevant prior studies available. FINDINGS: BRAIN AND EXTRA-AXIAL SPACES: Unremarkable. No intra- or extra-axial hemorrhage. No evidence of acute infarct. No intracranial mass or mass effect. There is preservation of the arriola/white matter interface. Posterior fossa structures are unremarkable. Ventricles are appropriate for age. No hydrocephalus. Basal cisterns are patent. BONES/JOINTS: Unremarkable. No discrete lytic or blastic abnormalities. SINUSES: Unremarkable as visualized. Clear. MASTOID AIR CELLS: Unremarkable. Clear. ORBITS: Abnormal hyperdense left orbital globe with crescentic fluid level is nonfunctioning. Normal right orbital globe. CT/Brain/Head without Contrast IMPRESSION: Abnormal nonfunctioning left orbital globe otherwise negative noncontrast CT head scan. Electronically Signed: Charles Dozier MD at 15:05 EDT , CC: Dr. Laura Steele MD; Dr. Marco A Larry, [employer]: Signed Normal [facility] CBC W/Diff, Automatedon 10-2 Absolute Lymph 2.17 X10 3/uL Normal 0.83-4.51 [facility] Comment on above: Performed By: #### L 100.0100, L500.2500, L300.3900, L300.4310 #### [facility] [address] [place], [address] Absolute Neut 4.6 X10 3/uL Normal 2.0-7.7 [facility] Comment on above: Performed By: #### L 100.0100, L500.2500, L300.3900, L300.4310 #### [facility] [address] [place], [address] Basophils/100 WBC (Bld) 1.1 % High 0-1 [facility] Comment on above: Performed By: #### L 100.0100, L500.2500, L300.3900, L300.4310 #### [facility] [address] [place], [address] Eosinophils/100 WBC (Bld) 2.0 % Normal 0-5 [facility] Comment on above: Performed By: #### L 100.0100, L500.2500, L300.3900, L300.4310 #### [facility] [address] [place], [address] Erythrocyte distribution width (RBC) [Ratio] 13.2 % Normal 11.6-14.6 [facility] Comment on above: Performed By: #### L 100.0100, L500.2500, L300.3900, L300.4310 #### [facility] [address] [place], [address] Hematocrit (Bld) [Volume fraction] 33.9 % Low 37-47 [facility] Comment on above: Performed By: #### L 100.0100, L500.2500, L300.3900, L300.4310 #### [facility] [address] [place], [address] Hemoglobin (Bld) [Mass/Vol] 11.0 g/dL Low 12.0-15.0 [facility] Comment on above: Performed By: #### L 100.0100, L500.2500, L300.3900, L300.4310 #### [facility] [address] [place], [address] IG% 0.500 Normal 0.0-0.9 [facility] Comment on above: Result Comment: IG% - Immature Granulocytes (promyelocytes, myelocytes and metamyelocytes) > 1% indicates that a LEFT SHIFT is Present. Performed By: #### L 100.0100, L500.2500, L300.3900, L300.4310 #### [facility] [address] [place], [address] Lymphocytes/100 WBC (Bld) 29.0 % Normal 19-41 [facility] Comment on above: Performed By: #### L 100.0100, L500.2500, L300.3900, L300.4310 #### [facility] [address] [place], [address] MCH (RBC) [Entitic mass] 29.1 pg Normal 27.0-32.0 [facility] Comment on above: Performed By: #### L 100.0100, L500.2500, L300.3900, L300.4310 #### [facility] [address] [place], [address] MCHC (RBC) [Mass/Vol] 32.4 g/dL Normal 32-36 [facility] Comment on above: Performed By: #### L 100.0100, L500.2500, L300.3900, L300.4310 #### [facility] [address] [place], [address] MCV (RBC) [Entitic vol] 89.7 fL Normal 81-99 [facility] Comment on above: Performed By: #### L 100.0100, L500.2500, L300.3900, L300.4310 #### [facility] [address] [place], [address] Monocytes/100 WBC (Bld) 6.5 % Normal 0-10 [facility] Comment on above: Performed By: #### L 100.0100, L500.2500, L300.3900, L300.4310 #### [facility] [address] [place], [address] Neutrophils/100 WBC (Bld) 60.9 % Normal 47-70 [facility] Comment on above: Performed By: #### L 100.0100, L500.2500, L300.3900, L300.4310 #### [facility] [address] [place], [address] Nucleated RBC (Bld) [#/Vol] 0 10*3/uL Normal 0-5 [facility] Comment on above: Performed By: #### L 100.0100, L500.2500, L300.3900, L300.4310 #### [facility] [address] [place], [address] Platelet mean volume (Bld) [Entitic vol] 10.7 fL Normal 6.2-12.0 [facility] Comment on above: Performed By: #### L 100.0100, L500.2500, L300.3900, L300.4310 #### [facility] [address] [place], [address] Platelets (Bld) [#/Vol] 223 10*3/uL Normal 150-450 [facility] Comment on above: Performed By: #### L 100.0100, L500.2500, L300.3900, L300.4310 #### [facility] [address] [place], [address] RBC (Bld) [#/Vol] 3.78 10*6/uL Low 4.2-5.4 [facility] Comment on above: Performed By: #### L 100.0100, L500.2500, L300.3900, L300.4310 #### [facility] [address] [place], [address] RDW SD 43.7 fl Normal 35.1-43.9 [facility] Comment on above: Performed By: #### L 100.0100, L500.2500, L300.3900, L300.4310 #### [facility] [address] [place], [address] WBC (Bld) [#/Vol] 7.5 10*3/uL Normal 4.4-11.0 [facility] Comment on above: Performed By: #### L 100.0100, L500.2500, L300.3900, L300.4310 #### [facility] [address] [place], [address] Emergency Department Summary on 02-06-2024 Emergency Department Summary [facility] Medical Records Department [address] [place] [address] Emergency Department Summary 02/06/24 MR#: [id number] Acct: [id number] Name: FAY LEES Rep #: [id number] : 1965 58 From: Marco A Larry DO PCP: Dr. Laura Steele MD Status:DEP ER Location: ED HPI History of Present Illness Chief Complaint: Neuro S/Sx Informant: patient Onset/Context/Timing Onset: Days (4) Context: Sudden Onset Timing: Continuous Quality: Numbness Location: Left upper and lower extremities Worsened by: Nothing Relieved by: Nothing Narrative Narrative: Patient presents with paresthesias to the left side of her body that have been constant for the last 4 days. Patient states it began rather suddenly. Patient admits to some numbness and tingling to her left upper and lower extremities. Patient denies any weakness. Patient states nothing makes it better and nothing makes it worse. Patient denies any slurred speech. Patient denies any difficulty ambulating. Patient denies any facial weakness. Patient denies any headaches. Patient does admit to some pain to the left lateral side of her neck. [facility] Medical History Colon cancer screening GERD (gastroesophageal reflux disease) Nausea Abdominal pain Wears glasses Anxiety Alcohol use Open wound Insulin dependent diabetes mellitus Uses wheelchair Dietary restriction Gastric reflux Non-smoker Shortness of breath on exertion Leg cramps History of edema Hypertension Preoperative evaluation to rule out surgical contraindication Health care maintenance Insomnia Skin picking habit Needs flu shot Breast cancer screening Anxiety and depression Obesity novasure History of endometrial biopsy bilat eye surgery great toe fusion Hyperparathyroidism open wound of toes Peripheral vascular disease of lower extremity Acute hematogenous osteomyelitis Hypothyroidism Hyperlipidemia Charcot's joint of left foot Peripheral neuropathy PVD (peripheral vascular disease) nonhealing plantar l foot wound Diabetic foot infection Diabetes type 1, controlled Home Medications ???Medication ???Instructions ???Recorded ???Last Taken ???Type insulin pump syringe 1.8 mL 01/23/18 Unknown History blood-glucose meter,continuous #1 ea 11/26/20 Unknown Rx (Dexcom G6 [employer]) acetaminophen 325 mg tablet 650 mg (2 x 325 mg) PO Q4H PRN PRN 09/29/22 Unknown Rx Pain 1-10/Fever #0 tabs fluoxetine 40 mg capsule 40 mg PO BID depression, hot 11/14/22 02/06/24 Rx flashes #180 caps trazodone 50 mg tablet 25 mg (1/2 x 50 mg) PO QHS PRN 03/13/23 Unknown Rx insomnia #90 tabs hydroxyzine HCl 25 mg tablet 25 mg PO PRN PRN anxiety 04/18/23 Unknown History simvastatin 20 mg tablet 20 mg PO QHS 04/18/23 02/05/24 History insulin lispro 100 unit/mL 100 unit subcut .continuous #90 mL 05/16/23 Unknown Rx subcutaneous solution (Humalog U-100 Insulin) insulin pump cartridge,automated #1 ea 05/16/23 Unknown Rx dose,BT with controller subcutaneous (Omnipod 5 G6 Intro Kit (Gen 5) subcutaneous cartridge with controller) ondansetron 4 mg disintegrating 4 mg PO Q8H PRN nausea and 06/14/23 Unknown Rx tablet vomiting #60 tabs sucralfate 1 gram tablet (Carafate) 1 g PO QACHS 1 month #120 tabs 06/14/23 Unknown Rx ascorbic acid (vitamin C) 1,000 mg 1 g PO DAILY 90 days #90 tabs 06/21/23 02/06/24 Rx tablet (Vitamin C) aspirin 81 mg tablet,delayed 81 mg PO DAILY 30 days #30 tabs 06/21/23 02/06/24 Rx release calcium 500 mg (as 1 tab PO DAILY 90 days #90 tabs 06/21/23 02/06/24 Rx carbonate)-vitamin D3 15 mcg (600 unit) tablet (Os-Natacha 500 + D3) levothyroxine 125 mcg tablet 125 mcg PO DAILY #90 tabs 09/19/23 02/06/24 Rx blood-glucose sensor (Dexcom G6 #9 ea 11/13/23 Unknown Rx Sensor device) blood-glucose transmitter (Dexcom #1 ea 11/13/23 Unknown Rx G6 Transmitter device) enalapril maleate 5 mg tablet 5 mg PO DAILY #90 tabs 12/18/23 02/06/24 Rx omeprazole 40 mg capsule,delayed 40 mg PO QDAY #90 caps 12/25/23 02/06/24 Rx release insulin pump cart,automated,BT #15 ea 01/25/24 Unknown Rx Allergy/AdvReac Type Severity Reaction Status Date / Time codeine AdvReac Vomiting Verified 02/06/24 13:10 Family History Mother Diabetes Father Diabetes Grandfather Diabetes Grandmother Diabetes Surgical History Hx of appendectomy S/P laparoscopic appendectomy S/P foot surgery, left Status post bilateral foot surgery Hx of tubal ligation Hx of adenoidectomy History of tonsillectomy Hx of section S/P transmetatarsal amputation of foot Social History ... Normal [facility] Partial Thromboplast Timeon 02-06-2024 aPTT Coag (Bld) [Time] 24.3 s Normal 24.1-36.2 [facility] Comment on above: Performed By: #### L 500.4050, L500.4100 #### [facility] [address] [place], [address] Prothrombin Time w/INRon INR Coag (PPP) [Relative time] 0.9 {INR} Normal [facility] Comment on above: Performed By: #### L 100.0100, L500.2500, L300.3900, L300.4310 #### [facility] [address] [place], [address] PT Coag (PPP) [Time] 12.3 s Normal 11.7-14.9 [facility] Comment on above: Performed By: #### L 100.0100, L500.2500, L300.3900, L300.4310 #### [facility] [address] [place], [address] Urinalysis, Completeon 02-05 BACTERIA 1+ /hpf Normal None Seen [facility] Comment on above: Order Comment: CLEAN CATCH Performed By: #### L 500.4050, L500.4100 #### [facility] [address] [place], [address] EPI,SQUAMOUS 0-5 SEEN Normal 5-10 [facility] Comment on above: Order Comment: CLEAN CATCH Performed By: #### L 500.4050, L500.4100 #### [facility] [address] [place], [address] Mucus Ql (Urine sed) 1+ /hpf Normal [facility] Comment on above: Order Comment: CLEAN CATCH Performed By: #### L 500.4050, L500.4100 #### [facility] [address] [place], [address] RBC 0 SEEN Normal 0-5 [facility] Comment on above: Order Comment: CLEAN CATCH Performed By: #### L 500.4050, L500.4100 #### [facility] [address] [place], [address] WBC 0 SEEN Normal 0-5 [facility] Comment on above: Order Comment: CLEAN CATCH Performed By: #### L 500.4050, L500.4100 #### [facility] [address] [place], [address] Endocrinology Visit Reporton 01-25-2024 Endocrinology Visit Report [facility] [address] [place] [address] OFFICE VISIT Date of Service: 01/25/24 MR#: [id number] Acct: [id number] Name: FAY LEES Rep #: [id number] : 1965 Provider: Angel Villagran Age/Sex: 58/F Location: [facility] [place] Status: Signed Intake Vital Signs 09/19/23 08:06 11/20/23 09:07 01/25/24 07:58 Height 5 ft 2 in 5 ft 2 in 5 ft 2 in Weight: 198 lb 9 oz 203 lb 2 oz BMI 36.3 37.1 BP 126/78 H 112/71 Blood Pressure Location Lt brachial Rt brachial Position Sitting Sitting Respiration 16 Pulse 78 83 Pulse Source Monitor Monitor Temp 97.5 F L Temp Source Temporal Pulse Oximetry (%) 98 97 Oxygen Delivery Method room air room air Intake Visit Reasons: 4 M FU Chief Complaint: diabetes Allergies codeine Adverse Reaction (Verified 11/20/23 09:02) Vomiting Medications ???Medication ???Instructions ???Recorded ???Confirmed ???Type insulin pump syringe 1.8 mL 01/23/18 01/25/24 History blood-glucose meter,continuous #1 ea 11/26/20 01/25/24 Rx (Dexcom G6 [employer]ch[employer]) acetaminophen 325 mg tablet 650 mg (2 x 325 mg) PO Q4H PRN PRN 09/29/22 01/25/24 Rx Pain 1-10/Fever #0 tabs fluoxetine 40 mg capsule 40 mg PO BID depression, hot 11/14/22 01/25/24 Rx flashes #180 caps trazodone 50 mg tablet 25 mg (1/2 x 50 mg) PO QHS PRN 03/13/23 01/25/24 Rx insomnia #90 tabs hydroxyzine HCl 25 mg tablet 25 mg PO PRN PRN anxiety 04/18/23 01/25/24 History simvastatin 20 mg tablet 20 mg PO QHS 04/18/23 01/25/24 History insulin lispro 100 unit/mL 100 unit subcut .continuous #90 mL 05/16/23 01/25/24 Rx subcutaneous solution (Humalog U-100 Insulin) insulin pump cartridge,automated #1 ea 05/16/23 01/25/24 Rx dose,BT with controller subcutaneous (Omnipod 5 G6 Intro Kit (Gen 5) subcutaneous cartridge with controller) ondansetron 4 mg disintegrating 4 mg PO Q8H PRN nausea and 06/14/23 01/25/24 Rx tablet vomiting #60 tabs sucralfate 1 gram tablet (Carafate) 1 g PO QACHS 1 month #120 tabs 06/14/23 01/25/24 Rx ascorbic acid (vitamin C) 1,000 mg 1 g PO DAILY 90 days #90 tabs 06/21/23 01/25/24 Rx tablet (Vitamin C) aspirin 81 mg tablet,delayed 81 mg PO DAILY 30 days #30 tabs 06/21/23 01/25/24 Rx release calcium 500 mg (as 1 tab PO DAILY 90 days #90 tabs 06/21/23 01/25/24 Rx carbonate)-vitamin D3 15 mcg (600 unit) tablet (Os-Natacha 500 + D3) levothyroxine 125 mcg tablet 125 mcg PO DAILY #90 tabs 09/19/23 01/25/24 Rx blood-glucose sensor (Dexcom G6 #9 ea 11/13/23 01/25/24 Rx Sensor device) blood-glucose transmitter (Dexcom #1 ea 11/13/23 01/25/24 Rx G6 Transmitter device) enalapril maleate 5 mg tablet 5 mg PO DAILY #90 tabs 12/18/23 01/25/24 Rx omeprazole 40 mg capsule,delayed 40 mg PO QDAY #90 caps 12/25/23 01/25/24 Rx release insulin pump cart,automated,BT #15 ea 01/25/24 01/25/24 Rx PFSH Medical History Colon cancer screening GERD (gastroesophageal reflux disease) Nausea Abdominal pain Wears glasses Anxiety Alcohol use Open wound Insulin dependent diabetes mellitus Uses wheelchair Dietary restriction Gastric reflux Non-smoker Shortness of breath on exertion Leg cramps History of edema Hypertension Preoperative evaluation to rule out surgical contraindication Health care maintenance Insomnia Skin picking habit Needs flu shot Breast cancer screening Anxiety and depression Obesity novasure History of endometrial biopsy bilat eye surgery great toe fusion Hyperparathyroidism open wound of toes Peripheral vascular disease of lower extremity Acute hematogenous osteomyelitis Hypothyroidism Hyperlipidemia Charcot's joint of left foot Peripheral neuropathy PVD (peripheral vascular disease) nonhealing plantar l foot wound Diabetic foot infection Diabetes type 1, controlled Surgical History Hx of appendectomy S/P laparoscopic appendectomy S/P foot surgery, left Status post bilateral foot surgery Hx of tubal ligation Hx of adenoidectomy History of tonsillectomy Hx of section S/P transmetatarsal amputation of foot Family History Mother Diabetes Father Diabetes Grandfather Diabetes Grandmother Diabetes Social History Smoking Status: Never smoker second hand exposure: No alcohol intake: current substance use type: does not use caffeine: Yes HPI HPI Chief Complaint: diabetes Details: FAY LEES, is a 58 F who presents to the office today for follow up. A1C is 6.4% She is using Omnipod 5 insulin pump with Dexcom G6 CGM and (more content not included)... Normal [facility] Thin prep Papanicolaou smear with manual screeningOrdered By: Rodo Larsen on 06-21-2023 Thin prep Papanicolaou smear with manual screening 200 mg/dL 74-106 [facility] Comment on above: MANAGEMENT OF PATIEN T CARE PER NURSING PROTOCOL Absolute lymphocyte countOrd ered By: Laura Steele on 06-14-2023 Lymphocytes Auto (Unsp spec) [#/Vol] 1.48 10*3/uL 0.83-4.51 [facility] Automated lymphocyte count a s percentage of total leukocytesOrdered By: Laura Steele on 06-14-2023 Lymphocytes/100 WBC Auto (Unsp spec) 23.8 % 19-41 [facility] Basophil percentageOrdered B y: Laura Steele on 06-14-2023 Amylase [Catalytic activity/Vol] 59 U/L 25-115 [facility] Basophils/100 WBC (Bld) 1.1 % 0-1 [facility] Bilirubin [Mass/Vol] 0.40 mg/dL 0.20-1.00 [facility] Comment on above: For patients on eltr ombopag therapy, use of Dimension [place] TBIL is not recommended. Chloride [Moles/Vol] 108 mmol/L 98-107 [facility] Eosinophils/100 WBC (Bld) 3.1 % 0-5 [facility] Glucose [Mass/Vol] 121 mg/dL 74-106 [facility] Comment on above: Fasting Glucose resu lt from 100 to 125 mg/dL suggests IMPAIRED HOMEOSTASIS per A.D.A. criteria. Hemoglobin (Bld) [Mass/Vol] 12.1 g/dL 12.0-15.0 [facility] Monocytes/100 WBC (Bld) 7.4 % 0-10 [facility] Neutrophils (Bld) [#/Vol] 4.0 10*3/uL 2.0-7.7 [facility] Neutrophils/100 WBC (Bld) 64.3 % 47-70 [facility] Potassium [Moles/Vol] 4.7 mmol/L 3.5-5.1 [facility] Protein [Mass/Vol] 7.0 g/dL 6.4-8.2 [facility] Sodium [Moles/Vol] 139 mmol/L 136-145 [facility] WBC (Bld) [#/Vol] 6.2 10*3/uL 4.4-11.0 [facility] Determination of erythrocyte mean corpuscular volume (MCV)Ordered By: Laura Steele on 06-14-2023 MCV (RBC) [Entitic vol] 93.4 fL 81-99 [facility] Erythrocyte distribution wid th ratioOrdered By: [facility] Reyezfortunato on 06-14-2023 Erythrocyte distribution width (RBC) [Ratio] 13.4 % 11.6-14.6 [facility] Erythrocyte distribution wid th standard deviationOrdered By: [facility] Reyezfortunato on 06-14-2023 Erythrocyte distribution width (RBC) [Entitic vol] 45.5 fL 35.1-43.9 [facility] Hematocrit Auto (Bld) [Volum e fraction]Ordered By: [facility] Reyezfortunato on 06-14-2023 Hematocrit (Bld) [Volume fraction] 38.3 % 37-47 [facility] Immature granulocytes/100 WB C Auto (Bld)Ordered By: [facility] Derejefortunato on 06-14-2023 Immature granulocytes/100 WBC (Bld) 0.300 % 0.0-0.9 [facility] Comment on above: IG% - Immature Granu locytes (promyelocytes, myelocytes and metamyelocytes) > 1% indicates that a LEFT SHIFT is Present. Laboratory - Chemistry and C hemistry - challengeOrdered By: Luisouzinkieruth Steele on 06-14-2023 Albumin/Globulin [Mass ratio] 1.1 {ratio} 0.9-2.4 [facility] ALP [Catalytic activity/Vol] 82 U/L 45-117 [facility] ALT [Catalytic activity/Vol] 25 U/L 13-56 [facility] CO2 [Moles/Vol] 24.0 mmol/L 21.0-32.0 [facility] Globulin (S) [Mass/Vol] 3.3 g/dL 2.2-4.2 [facility] Lipase [Catalytic activity/Vol] 22 U/L 13-75 [facility] Comment on above: Please note:LIPASE r evised reference range effective 22. New Lipase methodology. Expected to produce lower values than the previous assay method. NEW Reference Range: 13 - 75 U/L Urea nitrogen/Creatinine [Mass ratio] 24.1 mg/mg 10-20 [facility] Laboratory - Hematology and Cell countsOrdered By: Laura Steele on 06-14-2023 MCH (RBC) [Entitic mass] 29.5 pg 27.0-32.0 [facility] MCHC (RBC) [Mass/Vol] 31.6 g/dL 32-36 [facility] Nucleated RBC/100 WBC (Bld) [Ratio] 0 % 0-5 [facility] Platelet mean volume (Bld) [Entitic vol] 11.6 fL 6.2-12.0 [facility] Platelets (Bld) [#/Vol] 292 10*3/uL 150-450 [facility] No Panel InformationOrdered By: Laura Steele on 06-14-2023 Estimated GFR (MDRD) Amer 87 mL/min >60 [facility] Comment on above: GFR Calc Estimated GFR (MDRD) Non-Af Amer 72 mL/min >60 [facility] Comment on above: Non- GFR Calc RBC Auto (Bld) [#/Vol]Ordere d By: Laura Steele on 06-14-2023 RBC (Bld) [#/Vol] 4.10 10*6/uL 4.2-5.4 [facility] Serum or plasma calcium patel urement (mass/volume)Ordered By: Laura Steele on 06-14-2023 Calcium [Mass/Vol] 8.6 mg/dL 8.5-10.1 [facility] Serum or plasma creatinine m easurement (mass/volume)Ordered By: Laura Steele on 06-14-2023 Creatinine [Mass/Vol] 0.87 mg/dL 0.55-1.02 [facility] Comment on above: The validity of the calculated GFR & GFRAA in patients over 70 years has not been determined. Clinical correlation is essential. Serum or plasma thyroid stim ulating hormone (TSH) measurement (units/volume)Ordered By: Laura Steele on 06-14-2023 TSH Qn 0.51 uIU/mL 0.358-3.74 [facility] Serum or plasma urea nitroge n measurement (mass/volume)Ordered By: Laura Setele on 06-14-2023 Urea nitrogen [Mass/Vol] 21 mg/dL 7-18 [facility] Thin prep Papanicolaou smear with manual screeningOrdered By: Laura Steele on 06-14-2023 Thin prep Papanicolaou smear with manual screening 3.7 g/dL 3.2-5.0 [facility] Thin prep Papanicolaou smear with manual screening 17 U/L 15-37 [facility] Thin prep Papanicolaou smear with manual screening 7 5-15 [facility] Laboratory - Chemistry and C hemistry - challengeOrdered By: Varun Valenzuela on 06-08-2023 Magnesium [Mass/Vol] 2.4 mg/dL 1.6-2.6 [facility] No Panel InformationOrdered By: Leena Green on 05-25-2023 Vitamin D 25-Hydroxy 10.3 ng/mL [facility] Comment on above: Vitamin D 25(OH) Sta tus Range Deficiency <20 ng/mL (50nmol/L) Insufficiency 20 - 30 ng/mL (50 - 75 nmol/L) Sufficiency 30 - 100 ng/mL (75 - 250 nmol/L) Toxicity >100 ng/mL (>250 nmol/L) Serum or plasma nicotine carla surement (mass/volume)Ordered By: Leena Green on 05-25-2023 Nicotine [Mass/Vol] <1.0 ug/mL . [facility] Comment on above: This test was devbibianao coleman and its performance characteristicsdetermined by [facility]. It has not been cleared orapproved by the Food and Drug Administration.Nicotine levels greater than 2.0 are consistent with theuse of tobacco or tobacco cessation products. Serum or plasma thyroid stim ulating hormone (TSH) measurement (units/volume)Ordered By: Leena Green on 05-25-2023 TSH Qn 0.37 uIU/mL 0.358-3.74 [facility] Thin prep Papanicolaou smear with manual screeningOrdered By: Leena Green on 05-25-2023 Thin prep Papanicolaou smear with manual screening <1.0 ug/mL . [facility] Comment on above: This test was develo ped and its performance characteristicsdetermined by [facility]. It has not been cleared orapproved by the Food and Drug Administration.Cotinine levels greater than 20.0 are consistent with theuse of tobacco or tobacco cessation products.Performed at: [address] [id number] Director: Saeed Farfan MD, Phone: [phone] Whole blood hemoglobin A1c/t otal hemoglobin ratio (mass fraction)Ordered By: Leena Green on 05-25-2023 HbA1c (Bld) [Mass fraction] 6.6 % 3.8-5.6 [facility] Comment on above: Normal < 5.7 % Predi abetic 5.7 - 6.4 % Diabetic >or= 6.5 % Please note range changes. Anaerobic cultureOrdered By: Nilesh Diaz on 05-23-2023 Bacteria identified Anaer cx Nom (Unsp spec) No anaerobic bacteria isolated. [facility] Bacteria identified Anaer cx Nom (Unsp spec) No anaerobic bacteria isolated. [facility] Bacteria identified Cx Nom ( Wound)Ordered By: Nilesh Diaz on 05-23-2023 Wound Culture Citrobacter koseri [facility] Wound Culture Citrobacter koseri [facility] Gram stain for investigation of transfusion reactionOrdered By: Nilesh Diaz on 05-23-2023 Microscopic observation Gram stain Nom (Unsp spec) [facility] Microscopic observation Gram stain Nom (Unsp spec) [facility] Absolute lymphocyte countOrd ered By: Laura Steele on 04-14-2023 Lymphocytes Auto (Unsp spec) [#/Vol] 1.75 10*3/uL 0.83-4.51 [facility] Basophil percentageOrdered B y: Laura Steele on 04-14-2023 Basophils/100 WBC (Bld) 0.8 % 0-1 [facility] Bilirubin [Mass/Vol] 0.40 mg/dL 0.20-1.00 [facility] Comment on above: For patients on eltr ombopag therapy, use of Dimension [place] TBIL is not recommended. Chloride [Moles/Vol] 111 mmol/L 98-107 [facility] Eosinophils/100 WBC (Bld) 1.6 % 0-5 [facility] Glucose [Mass/Vol] 85 mg/dL 74-106 [facility] Neutrophils (Bld) [#/Vol] 4.0 10*3/uL 2.0-7.7 [facility] Neutrophils/100 WBC (Bld) 63.1 % 47-70 [facility] Potassium [Moles/Vol] 4.1 mmol/L 3.5-5.1 [facility] Protein [Mass/Vol] 6.8 g/dL 6.4-8.2 [facility] Sodium [Moles/Vol] 142 mmol/L 136-145 [facility] WBC (Bld) [#/Vol] 6.4 10*3/uL 4.4-11.0 [facility] Blood erythrocytes count (nu mber/volume)Ordered By: Laura Steele on 04-14-2023 RBC (Bld) [#/Vol] 4.20 10*6/uL 4.2-5.4 [facility] Blood hemoglobin measurement (mass/volume)Ordered By: Laura Steele on 04-14-2023 Hemoglobin (Bld) [Mass/Vol] 12.5 g/dL 12.0-15.0 [facility] Blood lymphocytes/100 leukoc ytesOrdered By: Laura Steele on 04-14-2023 Lymphocytes/100 WBC (Bld) 27.5 % 19-41 [facility] Blood monocytes/100 leukocyt esOrdered By: Laura Steele on 04-14-2023 Monocytes/100 WBC (Bld) 6.4 % 0-10 [facility] Blood platelet mean volumeOr dered By: Laura Steele on 04-14-2023 Platelet mean volume (Bld) [Entitic vol] 11.3 fL 6.2-12.0 [facility] Determination of erythrocyte mean corpuscular volume (MCV)Ordered By: Laura Steele on 04-14-2023 MCV (RBC) [Entitic vol] 91.7 fL 81-99 [facility] Hematocrit Auto (Bld) [Volum e fraction]Ordered By: Laura Steele on 04-14-2023 Hematocrit (Bld) [Volume fraction] 38.5 % 37-47 [facility] Laboratory - Chemistry and C hemistry - challengeOrdered By: stacieouzinkieruth Steele on 04-14-2023 ALP [Catalytic activity/Vol] 83 U/L 45-117 [facility] ALT [Catalytic activity/Vol] 24 U/L 13-56 [facility] CO2 [Moles/Vol] 25.0 mmol/L 21.0-32.0 [facility] Globulin (S) [Mass/Vol] 3.4 g/dL 2.2-4.2 [facility] Urea nitrogen/Creatinine [Mass ratio] 17.0 mg/mg 10-20 [facility] Laboratory - Hematology and Cell countsOrdered By: stacieouzinkieruth Steele on 04-14-2023 Erythrocyte distribution width (RBC) [Entitic vol] 46.0 fL 35.1-43.9 [facility] Erythrocyte distribution width (RBC) [Ratio] 13.8 % 11.6-14.6 [facility] Immature granulocytes/100 WBC (Bld) 0.600 % 0.0-0.9 [facility] Comment on above: IG% - Immature Granu locytes (promyelocytes, myelocytes and metamyelocytes) > 1% indicates that a LEFT SHIFT is Present. MCH (RBC) [Entitic mass] 29.8 pg 27.0-32.0 [facility] Nucleated RBC/100 WBC (Bld) [Ratio] 0 % 0-5 [facility] MCHC Auto (RBC) [Mass/Vol]Or dered By: Laura Steele on 04-14-2023 MCHC (RBC) [Mass/Vol] 32.5 g/dL 32-36 [facility] No Panel InformationOrdered By: Laura Steele on 04-14-2023 Estimated GFR (MDRD) Amer 110 mL/min >60 [facility] Comment on above: GFR Calc Estimated GFR (MDRD) Non-Af Amer 91 mL/min >60 [facility] Comment on above: Non- GFR Calc Thyroid Stimulating Hormone (TSH) 13.90 uIU/mL 0.358-3.74 [facility] Platelets bldOrdered By: Mina Steele on 04-14-2023 Platelets (Bld) [#/Vol] 262 10*3/uL 150-450 [facility] Serum or plasma albumin patel urement (mass/volume)Ordered By: Laura Steele on 04-14-2023 Albumin [Mass/Vol] 3.4 g/dL 3.2-5.0 [facility] Serum or plasma albumin/glob ulin mass ratioOrdered By: Laura Steele on 04-14-2023 Albumin/Globulin [Mass ratio] 1.0 {ratio} 0.9-2.4 [facility] Serum or plasma calcium patel urement (mass/volume)Ordered By: Laura Steele on 04-14-2023 Calcium [Mass/Vol] 8.4 mg/dL 8.5-10.1 [facility] Serum or plasma creatinine m easurement (mass/volume)Ordered By: Laura Steele on 04-14-2023 Creatinine [Mass/Vol] 0.71 mg/dL 0.55-1.02 [facility] Comment on above: The validity of the calculated GFR & GFRAA in patients over 70 years has not been determined. Clinical correlation is essential. Serum or plasma urea nitroge n measurement (mass/volume)Ordered By: Laura Steele on 04-14-2023 Urea nitrogen [Mass/Vol] 12 mg/dL 7-18 [facility] Thin prep Papanicolaou smear with manual screeningOrdered By: Laura Steele on 04-14-2023 Thin prep Papanicolaou smear with manual screening 14 U/L 15-37 [facility] Thin prep Papanicolaou smear with manual screening 6 5-15 [facility] Absolute lymphocyte countOrd ered By: Laura Steele on 03-13-2023 Lymphocytes Auto (Unsp spec) [#/Vol] 1.62 10*3/uL 0.83-4.51 [facility] Basophil percentageOrdered B y: Laura Steele on 03-13-2023 Basophils/100 WBC (Bld) 1.1 % 0-1 [facility] Bilirubin [Mass/Vol] 0.40 mg/dL 0.20-1.00 [facility] Comment on above: For patients on eltr ombopag therapy, use of Dimension [place] TBIL is not recommended. Chloride [Moles/Vol] 105 mmol/L 98-107 [facility] Eosinophils/100 WBC (Bld) 1.2 % 0-5 [facility] Glucose [Mass/Vol] 251 mg/dL 74-106 [facility] Comment on above: Glucose result great er than or equal to 200 mg/dLsuggests DIABETES MELLITUS per A.D.A. criteria. Neutrophils (Bld) [#/Vol] 4.5 10*3/uL 2.0-7.7 [facility] Neutrophils/100 WBC (Bld) 66.9 % 47-70 [facility] Potassium [Moles/Vol] 4.3 mmol/L 3.5-5.1 [facility] Protein [Mass/Vol] 7.2 g/dL 6.4-8.2 [facility] Sodium [Moles/Vol] 136 mmol/L 136-145 [facility] WBC (Bld) [#/Vol] 6.7 10*3/uL 4.4-11.0 [facility] Blood erythrocytes count (nu mber/volume)Ordered By: Laura Steele on 03-13-2023 RBC (Bld) [#/Vol] 4.40 10*6/uL 4.2-5.4 [facility] Blood hemoglobin measurement (mass/volume)Ordered By: Laura Reyezmikafortunato on 03-13-2023 Hemoglobin (Bld) [Mass/Vol] 13.0 g/dL 12.0-15.0 [facility] Blood lymphocytes/100 leukoc ytesOrdered By: Laura Reyezmikafortunato on 03-13-2023 Lymphocytes/100 WBC (Bld) 24.3 % 19-41 [facility] Blood monocytes/100 leukocyt esOrdered By: stacieouzinkieruth Steele on 03-13-2023 Monocytes/100 WBC (Bld) 5.9 % 0-10 [facility] Blood platelet mean volumeOr dered By: stacieouzinkieruth Steele on 03-13-2023 Platelet mean volume (Bld) [Entitic vol] 11.3 fL 6.2-12.0 [facility] Determination of erythrocyte mean corpuscular volume (MCV)Ordered By: stacieouzinkieruth Steele on 03-13-2023 MCV (RBC) [Entitic vol] 92.0 fL 81-99 [facility] Hematocrit Auto (Bld) [Volum e fraction]Ordered By: [facility] on 03-13-2023 Hematocrit (Bld) [Volume fraction] 40.5 % 37-47 [facility] Laboratory - Chemistry and C hemistry - challengeOrdered By: [facility] Derejefortunato on 03-13-2023 ALP [Catalytic activity/Vol] 88 U/L 45-117 [facility] ALT [Catalytic activity/Vol] 48 U/L 13-56 [facility] CO2 [Moles/Vol] 22.0 mmol/L 21.0-32.0 [facility] Globulin (S) [Mass/Vol] 3.7 g/dL 2.2-4.2 [facility] Urea nitrogen/Creatinine [Mass ratio] 17.6 mg/mg 10-20 [facility] Laboratory - Hematology and Cell countsOrdered By: stacieouzinkieruth Reyezfortunato on 03-13-2023 Erythrocyte distribution width (RBC) [Entitic vol] 45.4 fL 35.1-43.9 [facility] Erythrocyte distribution width (RBC) [Ratio] 13.3 % 11.6-14.6 [facility] Immature granulocytes/100 WBC (Bld) 0.600 % 0.0-0.9 [facility] Comment on above: IG% - Immature Granu locytes (promyelocytes, myelocytes and metamyelocytes) > 1% indicates that a LEFT SHIFT is Present. MCH (RBC) [Entitic mass] 29.5 pg 27.0-32.0 [facility] Nucleated RBC/100 WBC (Bld) [Ratio] 0 % 0-5 [facility] Laboratory - Hematology and Cell countson 03-13-2023 HbA1c (Bld) [Mass fraction] 6.6 % 4[facility]6.3 [facility] [Mass/Vol]Or dered By: Laura Steele on 03-13-2023 MCHC (RBC) [Mass/Vol] 32.1 g/dL 32-36 [facility] No Panel InformationOrdered By: Laura Steele on 03-13-2023 Estimated GFR (MDRD) Amer 77 mL/min >60 [facility] Comment on above: GFR Calc Estimated GFR (MDRD) Non-Af Amer 64 mL/min >60 [facility] Comment on above: Non- GFR Calc Platelets bldOrdered By: Mina Steele on 03-13-2023 Platelets (Bld) [#/Vol] 241 10*3/uL 150-450 [facility] Serum or plasma albumin patel urement (mass/volume)Ordered By: Laura Steele on 03-13-2023 Albumin [Mass/Vol] 3.5 g/dL 3.2-5.0 [facility] Serum or plasma albumin/glob ulin mass ratioOrdered By: Laura Steele on 03-13-2023 Albumin/Globulin [Mass ratio] 0.9 {ratio} 0.9-2.4 [facility] Serum or plasma calcium patel urement (mass/volume)Ordered By: Laura Steele on 03-13-2023 Calcium [Mass/Vol] 8.7 mg/dL 8.5-10.1 [facility] Serum or plasma creatinine m easurement (mass/volume)Ordered By: Laura Steele on 03-13-2023 Creatinine [Mass/Vol] 0.96 mg/dL 0.55-1.02 [facility] Comment on above: The validity of the calculated GFR & GFRAA in patients over 70 years has not been determined. Clinical correlation is essential. Serum or plasma urea nitroge n measurement (mass/volume)Ordered By: Laura Steele on 12-04-2023 Urea nitrogen [Mass/Vol] 17 mg/dL 7-18 [facility] Thin prep Papanicolaou smear with manual screeningOrdered By: Laura Steele on 03-13-2023 Thin prep Papanicolaou smear with manual screening 26 U/L 15-37 [facility] Thin prep Papanicolaou smear with manual screening 9 5-15 [facility] Bacteria identified Anaer cx Nom (Unsp spec)Ordered By: Rodo Larsen on 03-01-2023 Anaerobic Culture Anaerobic cocci [facility] Bacteria identified Cx Nom ( Wound)Ordered By: Rodo Larsen on 03-01-2023 Wound Culture Staphylococcus aureus [facility] Wound Culture Strep anginosus [facility] Fungus cultureOrdered By: Steph Larsen on 03-01-2023 Fungus identified Cx Nom (Unsp spec) [facility] Gram stain for investigation of transfusion reactionOrdered By: Rodo Larsen on 03-01-2023 Microscopic observation Gram stain Nom (Unsp spec) [facility] Anaerobic cultureOrdered By: Parmjit Lopez on 12-13-2022 Bacteria identified Anaer cx Nom (Unsp spec) No anaerobic bacteria isolated. [facility] Bacteria identified Anaer cx Nom (Unsp spec) No anaerobic bacteria isolated. [facility] Bacteria identified Cx Nom ( Wound)Ordered By: Parmjit Lopez on 12-13-2022 Wound Culture Morganella morganii sp morgani [facility] Wound Culture Alcaligenes faecalis ssp [facility] Wound Culture Staphylococcus aureus [facility] Wound Culture Morganella morganii sp morgani [facility] Wound Culture Alcaligenes faecalis ssp [facility] Wound Culture Staphylococcus aureus [facility] Gram stain for investigation of transfusion reactionOrdered By: Parmjit Lopez on 12-13-2022 Microscopic observation Gram stain Nom (Unsp spec) [facility] Microscopic observation Gram stain Nom (Unsp spec) [facility] No Panel InformationOrdered By: Ravi Diallo on 11-21-2022 Urine Microalbumin/Creatinin e Ratio 7.1 mg/g CRE <30 [facility] Thin prep Papanicolaou smear with manual screeningOrdered By: Ravi Diallo on 11-21-2022 Thin prep Papanicolaou smear with manual screening 12.5 mg/L NO RANGE EST. [facility] Urine creatinine measurement (mass/volume)Ordered By: Ravi Diallo on 11-21-2022 Creatinine (U) [Mass/Vol] 175.00 mg/dL NO RANGE EST. [facility] Laboratory - Hematology and Cell countson 11-15-2022 HbA1c (Bld) [Mass fraction] 6.4 % 4.2-6.3 [facility] Laboratory - Chemistry and C hemistry - challengeOrdered By: Rayne Queen on 11-09-2022 Free T4 [Mass/Vol] 1.59 ng/dL 0.76-1.46 [facility] No Panel InformationOrdered By: Rayne Queen on 11-09-2022 Thyroid Stimulating Hormone (TSH) 1.18 uIU/mL 0.358-3.74 [facility] Basophil percentageOrdered B y: Dr. Beebe on 09-30-2022 Chloride [Moles/Vol] 110 mmol/L 98-107 [facility] Glucose [Mass/Vol] 198 mg/dL 74-106 [facility] Comment on above: Fasting Glucose resu lt greater than or equal to 126 mg/dL suggests DIABETES MELLITUS per A.D.A. criteria. Potassium [Moles/Vol] 3.9 mmol/L 3.5-5.1 [facility] Sodium [Moles/Vol] 138 mmol/L 136-145 [facility] Glucose Glucometer (BldC) [M ass/Vol]Ordered By: Dr. Mccormack on 09-30-2022 Glucose [Mass/Vol] 200 mg/dL 74-106 [facility] Comment on above: MANAGEMENT OF PATIEN T CARE PER NURSING PROTOCOL Laboratory - Chemistry and C hemistry - challengeOrdered By: Dr. Beebe on 09-30-2022 CO2 [Moles/Vol] 20.0 mmol/L 21.0-32.0 [facility] Urea nitrogen/Creatinine [Mass ratio] 26.8 mg/mg 10- [facility] No Panel InformationOrdered By: Dr. Beebe on 09-30-2022 Estimated Creatinine Clearance Calc 61.59 ml/min [facility] Estimated GFR (MDRD) Amer 104 mL/min >60 [facility] Comment on above: GFR Calc Estimated GFR (MDRD) Non-Af Amer 86 mL/min >60 [facility] Comment on above: Non- GFR Calc Serum or plasma calcium patel urement (mass/volume)Ordered By: Dr. Beebe on 09-30-2022 Calcium [Mass/Vol] 8.4 mg/dL 8.5-10.1 [facility] Serum or plasma creatinine m easurement (mass/volume)Ordered By: Dr. Beebe on 09-30-2022 Creatinine [Mass/Vol] 0.75 mg/dL 0.55-1.02 [facility] Comment on above: The validity of the calculated GFR & GFRAA in patients over 70 years has not been determined. Clinical correlation is essential. Serum or plasma urea nitroge n measurement (mass/volume)Ordered By: Dr. Beebe on 09-30-2022 Urea nitrogen [Mass/Vol] 20 mg/dL 7-18 [facility] Thin prep Papanicolaou smear with manual screeningOrdered By: Dr. Beebe on 09-30-2022 Thin prep Papanicolaou smear with manual screening 8 5-15 [facility] Absolute lymphocyte countOrd ered By: Dr. Mccormack on 09-29-2022 Lymphocytes Auto (Unsp spec) [#/Vol] 0.71 10*3/uL 0.83-4.51 [facility] Basophil percentageOrdered B y: Dr. Mccormack on 09-29-2022 Basophils/100 WBC (Bld) 0.4 % 0-1 [facility] Eosinophils/100 WBC (Bld) 0.0 % 0-5 [facility] Neutrophils (Bld) [#/Vol] 15.6 10*3/uL 2.0-7.7 [facility] Neutrophils/100 WBC (Bld) 92.2 % 47-70 [facility] WBC (Bld) [#/Vol] 16.9 10*3/uL 4.4-11.0 [facility] Blood erythrocytes count (nu mber/volume)Ordered By: Dr. Mccormack on 09-29-2022 RBC (Bld) [#/Vol] 4.01 10*6/uL 4.2-5.4 [facility] Blood hemoglobin measurement (mass/volume)Ordered By: Dr. Mccormack on 09-29-2022 Hemoglobin (Bld) [Mass/Vol] 12.0 g/dL 12.0-15.0 [facility] Blood lymphocytes/100 leukoc ytesOrdered By: Dr. Mccormack on 09-29-2022 Lymphocytes/100 WBC (Bld) 4.2 % 19-41 [facility] Blood monocytes/100 leukocyt esOrdered By: Dr. Mccormack on 09-29-2022 Monocytes/100 WBC (Bld) 2.2 % 0-10 [facility] Blood platelet mean volumeOr dered By: Dr. Mccormack on 09-29-2022 Platelet mean volume (Bld) [Entitic vol] 10.9 fL 6.2-12.0 [facility] Determination of erythrocyte mean corpuscular volume (MCV)Ordered By: Dr. Mccormack on 09-29-2022 MCV (RBC) [Entitic vol] 92.5 fL 81-99 [facility] Hematocrit Auto (Bld) [Volum e fraction]Ordered By: Dr. Mccormack on 09-29-2022 Hematocrit (Bld) [Volume fraction] 37.1 % 37-47 [facility] Laboratory - Hematology and Cell countsOrdered By: Dr. Mccormack on 09-29-2022 Erythrocyte distribution width (RBC) [Entitic vol] 44.4 fL 35.1-43.9 [facility] Erythrocyte distribution width (RBC) [Ratio] 13.0 % 11.6-14.6 [facility] Immature granulocytes/100 WBC (Bld) 1.000 % 0.0-0.9 [facility] Comment on above: IG% - Immature Granu locytes (promyelocytes, myelocytes and metamyelocytes) > 1% indicates that a LEFT SHIFT is Present. MCH (RBC) [Entitic mass] 29.9 pg 27.0-32.0 [facility] Nucleated RBC/100 WBC (Bld) [Ratio] 0 % 0-5 [facility] MCHC Auto (RBC) [Mass/Vol]Or dered By: Dr. Mccormack on 09-29-2022 MCHC (RBC) [Mass/Vol] 32.3 g/dL 32-36 [facility] Platelets bldOrdered By: Dr. Mccormack on 09-29-2022 Platelets (Bld) [#/Vol] 198 10*3/uL 150-450 [facility] Absolute lymphocyte countOrd ered By: Dr. Linn on 09-28-2022 Lymphocytes Auto (Unsp spec) [#/Vol] 1.70 10*3/uL 0.83-4.51 [facility] Basophil percentageOrdered B y: Dr. Linn on 09-28-2022 Basophils/100 WBC (Bld) 0.7 % 0-1 [facility] Bilirubin [Mass/Vol] 0.50 mg/dL 0.20-1.00 [facility] Comment on above: For patients on eltr ombopag therapy, use of Dimension [place] TBIL is not recommended. Chloride [Moles/Vol] 105 mmol/L 98-107 [facility] Eosinophils/100 WBC (Bld) 1.3 % 0-5 [facility] Glucose [Mass/Vol] 175 mg/dL 74-106 [facility] Comment on above: Fasting Glucose resu lt greater than or equal to 126 mg/dL suggests DIABETES MELLITUS per A.D.A. criteria. Neutrophils (Bld) [#/Vol] 5.7 10*3/uL 2.0-7.7 [facility] Neutrophils/100 WBC (Bld) 69.9 % 47-70 [facility] Potassium [Moles/Vol] 3.8 mmol/L 3.5-5.1 [facility] Protein [Mass/Vol] 7.3 g/dL 6.4-8.2 [facility] Sodium [Moles/Vol] 139 mmol/L 136-145 [facility] WBC (Bld) [#/Vol] 8.2 10*3/uL 4.4-11.0 [facility] Blood erythrocytes count (nu mber/volume)Ordered By: Dr. Linn on 09-28-2022 RBC (Bld) [#/Vol] 4.14 10*6/uL 4.2-5.4 [facility] Blood hemoglobin measurement (mass/volume)Ordered By: Dr. Linn on 09-28-2022 Hemoglobin (Bld) [Mass/Vol] 12.2 g/dL 12.0-15.0 [facility] Blood lymphocytes/100 leukoc ytesOrdered By: Dr. Linn on 09-28-2022 Lymphocytes/100 WBC (Bld) 20.8 % 19-41 [facility] Blood monocytes/100 leukocyt esOrdered By: Dr. Linn on 09-28-2022 Monocytes/100 WBC (Bld) 6.8 % 0-10 [facility] Blood platelet mean volumeOr dered By: Dr. Linn on 09-28-2022 Platelet mean volume (Bld) [Entitic vol] 10.3 fL 6.2-12.0 [facility] Determination of erythrocyte mean corpuscular volume (MCV)Ordered By: Dr. Linn on 09-28-2022 MCV (RBC) [Entitic vol] 88.2 fL 81-99 [facility] Direct bilirubinOrdered By: Dr. Linn on 09-28-2022 Bilirubin.direct [Mass/Vol] 0.14 mg/dL 0.00-0.30 [facility] Glucose Glucometer (dC) [M ass/Vol]Ordered By: Dr. Linn on 09-28-2022 Glucose [Mass/Vol] 174 mg/dL 74-106 [facility] Comment on above: MANAGEMENT OF PATIEN T CARE PER NURSING PROTOCOL Hematocrit Auto (Bld) [Volum e fraction]Ordered By: Dr. Linn on 09-28-2022 Hematocrit (Bld) [Volume fraction] 36.5 % 37-47 [facility] Laboratory - Chemistry and C hemistry - challengeOrdered By: Dr. Linn on 09-28-2022 ALP [Catalytic activity/Vol] 90 U/L 45-117 [facility] ALT [Catalytic activity/Vol] 20 U/L 13-56 [facility] CO2 [Moles/Vol] 22.0 mmol/L 21.0-32.0 [facility] Globulin (S) [Mass/Vol] 3.7 g/dL 2.2-4.2 [facility] Lipase [Catalytic activity/Vol] 14 U/L 13-75 [facility] Comment on above: Please note:LIPASE r evised reference range effective 22. New Lipase methodology. Expected to produce lower values than the previous assay method. NEW Reference Range: 13 - 75 U/L Urea nitrogen/Creatinine [Mass ratio] 17.7 mg/mg 10-20 [facility] Laboratory - Hematology and Cell countsOrdered By: Dr. Linn on 09-28-2022 Erythrocyte distribution width (RBC) [Entitic vol] 41.1 fL 35.1-43.9 [facility] Erythrocyte distribution width (RBC) [Ratio] 12.8 % 11.6-14.6 [facility] Immature granulocytes/100 WBC (Bld) 0.500 % 0.0-0.9 [facility] Comment on above: IG% - Immature Granu locytes (promyelocytes, myelocytes and metamyelocytes) > 1% indicates that a LEFT SHIFT is Present. MCH (RBC) [Entitic mass] 29.5 pg 27.0-32.0 [facility] Nucleated RBC/100 WBC (Bld) [Ratio] 0 % 0-5 [facility] MCHC Auto (RBC) [Mass/Vol]Or dered By: Dr. Linn on 09-28-2022 MCHC (RBC) [Mass/Vol] 33.4 g/dL 32-36 [facility] No Panel InformationOrdered By: Dr. Linn on 09-28-2022 Estimated Creatinine Clearance Calc 61.71 ml/min [facility] Estimated GFR (MDRD) Amer 83 mL/min >60 [facility] Comment on above: GFR Calc Estimated GFR (MDRD) Non-Af Amer 69 mL/min >60 [facility] Comment on above: Non- GFR Calc Troponin I High Sensitivity 4 pg/mL 3.0-54.0 [facility] Comment on above: Please Note: New Catherine t Units and Gender Specific Reference Ranges. For more information see Policy Stat Procedure [facility] High Sensitivity Troponin (TNIH) and attachments. Platelets bldOrdered By: Dr. Linn on 09-28-2022 Platelets (Bld) [#/Vol] 218 10*3/uL 150-450 [facility] Serum or plasma albumin patel urement (mass/volume)Ordered By: Dr. Linn on 09-28-2022 Albumin [Mass/Vol] 3.6 g/dL 3.2-5.0 [facility] Serum or plasma calcium patel urement (mass/volume)Ordered By: Dr. Linn on 09-28-2022 Calcium [Mass/Vol] 9.0 mg/dL 8.5-10.1 [facility] Serum or plasma creatinine m easurement (mass/volume)Ordered By: Dr. Linn on 09-28-2022 Creatinine [Mass/Vol] 0.90 mg/dL 0.55-1.02 [facility] Comment on above: The validity of the calculated GFR & GFRAA in patients over 70 years has not been determined. Clinical correlation is essential. Serum or plasma urea nitroge n measurement (mass/volume)Ordered By: Dr. Linn on 09-28-2022 Urea nitrogen [Mass/Vol] 16 mg/dL 7-18 [facility] Thin prep Papanicolaou smear with manual screeningOrdered By: Dr. Linn on 09-28-2022 Thin prep Papanicolaou smear with manual screening 12 U/L 15-37 [facility] Thin prep Papanicolaou smear with manual screening 12 5-15 [facility] Absolute lymphocyte countOrd ered By: Dr. Steele on 08-18-2022 Lymphocytes Auto (Unsp spec) [#/Vol] 2.12 10*3/uL 0.83-4.51 [facility] Basophil percentageOrdered B y: Dr. Steele on 08-18-2022 Basophils/100 WBC (Bld) 1.1 % 0-1 [facility] Eosinophils/100 WBC (Bld) 3.0 % 0-5 [facility] Neutrophils (Bld) [#/Vol] 3.4 10*3/uL 2.0-7.7 [facility] Neutrophils/100 WBC (Bld) 54.5 % 47-70 [facility] WBC (Bld) [#/Vol] 6.3 10*3/uL 4.4-11.0 [facility] Basophil percentageOrdered B y: Dr. Diallo on 08-18-2022 Bilirubin [Mass/Vol] 0.30 mg/dL 0.20-1.00 [facility] Comment on above: For patients on eltr ombopag therapy, use of Dimension [place] TBIL is not recommended. Chloride [Moles/Vol] 110 mmol/L 98-107 [facility] Cholesterol [Mass/Vol] 172 mg/dL <200 [facility] Comment on above: <200 mg/dL Desirable 200-240 mg/dL Borderline >240 mg/dL High Risk Glucose [Mass/Vol] 119 mg/dL 74-106 [facility] Comment on above: Fasting Glucose resu lt from 100 to 125 mg/dL suggests IMPAIRED HOMEOSTASIS per A.D.A. criteria. Potassium [Moles/Vol] 4.5 mmol/L 3.5-5.1 [facility] Protein [Mass/Vol] 7.2 g/dL 6.4-8.2 [facility] Sodium [Moles/Vol] 140 mmol/L 136-145 [facility] Triglyceride [Mass/Vol] 141 mg/dL <199 [facility] Comment on above: The drugs N-Acetylcy steine and Metamizole may falsely depress this assay.Serum Triglycerides Reference Interval Normal <150 mg/dL Borderline high 150 - 199 mg/dL High 200 - 499 mg/dL Very High > or = 500 mg/dL Blood erythrocytes count (nu mber/volume)Ordered By: Dr. Steele on 08-18-2022 RBC (Bld) [#/Vol] 4.36 10*6/uL 4.2-5.4 [facility] Blood hemoglobin measurement (mass/volume)Ordered By: Dr. Steele on 08-18-2022 Hemoglobin (Bld) [Mass/Vol] 13.0 g/dL 12.0-15.0 [facility] Blood lymphocytes/100 leukoc ytesOrdered By: Dr. Steele on 08-18-2022 Lymphocytes/100 WBC (Bld) 33.5 % 19-41 [facility] Blood monocytes/100 leukocyt esOrdered By: Dr. Steele on 08-18-2022 Monocytes/100 WBC (Bld) 7.6 % 0-10 [facility] Blood platelet mean volumeOr dered By: Dr. Steele on 08-18-2022 Platelet mean volume (Bld) [Entitic vol] 10.6 fL 6.2-12.0 [facility] Determination of erythrocyte mean corpuscular volume (MCV)Ordered By: Dr. Steele on 08-18-2022 MCV (RBC) [Entitic vol] 89.7 fL 81-99 [facility] Hematocrit Auto (Bld) [Volum e fraction]Ordered By: Dr. Steele on 08-18-2022 Hematocrit (Bld) [Volume fraction] 39.1 % 37-47 [facility] Laboratory - Chemistry and C hemistry - challengeOrdered By: Rayne Queen on 08-18-2022 Free T4 [Mass/Vol] 1.25 ng/dL 0.76-1.46 [facility] Laboratory - Chemistry and C hemistry - challengeOrdered By: Dr. Diallo on 08-18-2022 ALP [Catalytic activity/Vol] 93 U/L 45-117 [facility] ALT [Catalytic activity/Vol] 25 U/L 13-56 [facility] CO2 [Moles/Vol] 22.0 mmol/L 21.0-32.0 [facility] Globulin (S) [Mass/Vol] 3.3 g/dL 2.2-4.2 [facility] Urea nitrogen/Creatinine [Mass ratio] 18.4 mg/mg 10-20 [facility] - Hematology and Cell countsOrdered By: Dr. Steele on 08-18-2022 Erythrocyte distribution width (RBC) [Entitic vol] 42.9 fL 35.1-43.9 [facility] Erythrocyte distribution width (RBC) [Ratio] 13.0 % 11.6-14.6 [facility] Immature granulocytes/100 WBC (Bld) 0.300 % 0.0-0.9 [facility] Comment on above: IG% - Immature Granu locytes (promyelocytes, myelocytes and metamyelocytes) > 1% indicates that a LEFT SHIFT is Present. MCH (RBC) [Entitic mass] 29.8 pg 27.0-32.0 [facility] Nucleated RBC/100 WBC (Bld) [Ratio] 0 % 0-5 [facility] MCHC Auto (RBC) [Mass/Vol]Or dered By: Dr. Steele on 08-18-2022 MCHC (RBC) [Mass/Vol] 33.2 g/dL 32-36 [facility] No Panel InformationOrdered By: Rayne Queen on 08-18-2022 Thyroid Stimulating Hormone (TSH) 6.45 uIU/mL 0.358-3.74 [facility] No Panel InformationOrdered By: Dr. Diallo on 08-18-2022 Estimated GFR (MDRD) Amer 101 mL/min >60 [facility] Comment on above: GFR Calc Estimated GFR (MDRD) Non-Af Amer 84 mL/min >60 [facility] Comment on above: Non- GFR Calc Urine Microalbumin/Creatinin e Ratio 15.3 mg/g CRE <30 [facility] Vitamin D 25-Hydroxy 21.5 ng/mL [facility] Comment on above: Vitamin D 25(OH) Sta tus Range Deficiency <20 ng/mL (50nmol/L) Insufficiency 20 - 30 ng/mL (50 - 75 nmol/L) Sufficiency 30 - 100 ng/mL (75 - 250 nmol/L) Toxicity >100 ng/mL (>250 nmol/L) Platelets bldOrdered By: Dr. Steele on 08-18-2022 Platelets (Bld) [#/Vol] 212 10*3/uL 150-450 [facility] Serum or plasma albumin patel urement (mass/volume)Ordered By: Dr. Diallo on 08-18-2022 Albumin [Mass/Vol] 3.9 g/dL 3.2-5.0 [facility] Serum or plasma albumin/glob ulin mass ratioOrdered By: Dr. Diallo on 08-18-2022 Albumin/Globulin [Mass ratio] 1.2 {ratio} 0.9-2.4 [facility] Serum or plasma calcium patel urement (mass/volume)Ordered By: Dr. iDallo on 08-18-2022 Calcium [Mass/Vol] 8.7 mg/dL 8.5-10.1 [facility] Serum or plasma cholesterol in HDL measurement (mass/volume)Ordered By: Dr. Diallo on 08-18-2022 Cholesterol in HDL [Mass/Vol] 52 mg/dL >40 [facility] Comment on above: The drugs N-Acetylcy steine and Metamizole may falsely depress this assay. Reference Range HDL <40 mg/dL Low HDL Cholesterol HDL >or= 60 mg/dL High HDL Cholesterol Serum or plasma cholesterol in VLDL measurement (mass/volume)Ordered By: Dr. Diallo on 08-18-2022 Cholesterol in VLDL [Mass/Vol] 28 mg/dL 5-40 [facility] Serum or plasma creatinine m easurement (mass/volume)Ordered By: Dr. Diallo on 08-18-2022 Creatinine [Mass/Vol] 0.76 mg/dL 0.55-1.02 [facility] Comment on above: The validity of the calculated GFR & GFRAA in patients over 70 years has not been determined. Clinical correlation is essential. Serum or plasma low density lipoprotein (LDL) cholesterol measurement (mass/volume)Ordered By: Dr. Diallo on 08-18-2022 Cholesterol in LDL [Mass/Vol] 92 mg/dL 0-130 [facility] Serum or plasma urea nitroge n measurement (mass/volume)Ordered By: Dr. Diallo on 08-18-2022 Urea nitrogen [Mass/Vol] 14 mg/dL 7-18 [facility] Thin prep Papanicolaou smear with manual screeningOrdered By: Dr. Diallo on 08-18-2022 Thin prep Papanicolaou smear with manual screening 15 U/L 15-37 [facility] Thin prep Papanicolaou smear with manual screening 8 5-15 [facility] Thin prep Papanicolaou smear with manual screening 36.7 mg/L NO RANGE EST. [facility] Urine creatinine measurement (mass/volume)Ordered By: Dr. Diallo on 08-18-2022 Creatinine (U) [Mass/Vol] 240.00 mg/dL NO RANGE EST. [facility] Laboratory - Hematology and Cell countson 07-20-2022 HbA1c (Bld) [Mass fraction] 6.5 % [facility] Bacteria identified Cx Nom ( Wound)Ordered By: Dr. Lopez on 04-29-2022 Wound Culture Staphylococcus aureus [facility] Wound Culture Pseudomonas aeroginosa [facility] Wound Culture Negative [facility] Gram stain for investigation of transfusion reactionOrdered By: Dr. Lopez on 04-27-2022 Microscopic observation Gram stain Nom (Unsp spec) [facility] Laboratory - Chemistry and C hemistry - challengeOrdered By: Rayne Queen on 02-09-2022 Free T4 [Mass/Vol] 1.25 ng/dL 0.76-1.46 [facility] No Panel InformationOrdered By: Rayne Queen on 02-09-2022 Thyroid Stimulating Hormone (TSH) 6.92 uIU/mL 0.358-3.74 [facility] Laboratory - Hematology and Cell countson 01-26-2022 HbA1c (Bld) [Mass fraction] 6.6 % [facility] Absolute lymphocyte counton 11-30-2021 Lymphocytes Auto (Unsp spec) [#/Vol] 2.57 10*3/uL 0.83-4.51 [facility] Work Phone: [phone] Basophil percentageon 2021 Amylase [Catalytic activity/Vol] 40 U/L 25-115 [facility] Work Phone: Basophils/100 WBC (Bld) 0.7 % 0-1 [facility] Work Phone: Bilirubin [Mass/Vol] 0.30 mg/dL 0.20-1.00 [facility] Work Phone: Comment on above: For patients on eltr ombopag therapy, use of Dimension [place] TBIL is not recommended. Chloride [Moles/Vol] 106 mmol/L 98-107 [facility] Work Phone: Eosinophils/100 WBC (Bld) 4.7 % 0-5 [facility] Work Phone: [phone] Glucose [Mass/Vol] 182 mg/dL 74-106 [facility] Work Phone: Comment on above: Fasting Glucose resu lt greater than or equal to 126 mg/dL suggests DIABETES MELLITUS per A.D.A. criteria. Neutrophils (Bld) [#/Vol] 5.8 10*3/uL 2.0-7.7 [facility] Work Phone: [phone] Neutrophils/100 WBC (Bld) 59.4 % 47-70 [facility] Work Phone: [phone] Potassium [Moles/Vol] 4.6 mmol/L 3.5-5.1 [facility] Work Phone: Protein [Mass/Vol] 7.1 g/dL 6.4-8.2 [facility] Work Phone: [phone] Sodium [Moles/Vol] 133 mmol/L 136-145 [facility] Work Phone: WBC (Bld) [#/Vol] 9.8 10*3/uL 4.4-11.0 [facility] Work Phone: Blood erythrocytes count (nu mber/volume)on 11-30-2021 RBC (Bld) [#/Vol] 4.08 10*6/uL 4.2-5.4 [facility] Blood hemoglobin measurement (mass/volume)on 11-30-2021 Hemoglobin (Bld) [Mass/Vol] 12.5 g/dL 12.0-15.0 [facility] Work Phone: Blood lymphocytes/100 leukoc yteson 11-30-2021 Lymphocytes/100 WBC (Bld) 26.4 % 19-41 [facility] Work Phone: Blood monocytes/100 leukocyt eson 11-30-2021 Monocytes/100 WBC (Bld) 6.9 % 0-10 [facility] Work Phone: Blood platelet mean volumeon 11-30-2021 Platelet mean volume (Bld) [Entitic vol] 10.5 fL 6.2-12.0 [facility] Work Phone: Determination of erythrocyte mean corpuscular volume (MCV)on 11-30-2021 MCV (RBC) [Entitic vol] 91.4 fL 81-99 [facility] Work Phone: Hematocrit Auto (Bld) [Volum e fraction]on 11-30-2021 Hematocrit (Bld) [Volume fraction] 37.3 % 37-47 [facility] Work Phone: Laboratory - Chemistry and C hemistry - challengeon 11-30-2021 ALP [Catalytic activity/Vol] 98 U/L 45-117 [facility] Work Phone: ALT [Catalytic activity/Vol] 21 U/L 13-56 [facility] Work Phone: CO2 [Moles/Vol] 21.0 mmol/L 21.0-32.0 [facility] Work Phone: Globulin (S) [Mass/Vol] 4.1 g/dL 2.2-4.2 [facility] Work Phone: Lipase [Catalytic activity/Vol] 86 U/L 73-393 [facility] Work Phone: Urea nitrogen/Creatinine [Mass ratio] 17.8 mg/mg 10-20 [facility] Work Phone: Laboratory - Hematology and Cell countson 11-30-2021 Erythrocyte distribution width (RBC) [Entitic vol] 43.0 fL 35.1-43.9 [facility] Work Phone: Erythrocyte distribution width (RBC) [Ratio] 13.0 % 11.6-14.6 [facility] Work Phone: Immature granulocytes/100 WBC (Bld) 1.900 % 0.0-0.9 [facility] Work Phone: Comment on above: IG% - Immature Granu locytes (promyelocytes, myelocytes and metamyelocytes) > 1% indicates that a LEFT SHIFT is Present. MCH (RBC) [Entitic mass] 30.6 pg 27.0-32.0 [facility] Work Phone: Nucleated RBC/100 WBC (Bld) [Ratio] 0 % 0-5 [facility] Work Phone: Laboratory - Microbiology an d Antimicrobial susceptibilityon 11-30-2021 SARS-CoV-2 (COVID-19) RNA NELY+probe Ql (Unsp spec) Not detected Not Detect [facility] Work Phone: Comment on above: Normal Reference Ran ge: Not DetectedMethod:(RT-PCR) real-time reverse transcriptase PCRLuminex SAIRA Instrument*The Food and Drug Administration (FDA) has issued an Emergency Use Authorization (EAU) for the SAIRA SARS-CoV-2 Assay for the rapid detection of the virus that causes COVID-19. This test has been validated, but the FDAs independent review of this validation is pending.*Negative results do not preclude infection and should not be used as the sole basis for treatment or patient management. Optimum specimen types and timing for peak viral levels during infections caused by SARS-CoV-2 have not been determined. Collection of multiple specimens from the same patient may be necessary to detect the virus. The possibility of a false negative result should be considered if the patient has clinical presentation or has had recent exposure. MCHC Auto (RBC) [Mass/Vol]on 11-30-2021 MCHC (RBC) [Mass/Vol] 33.5 g/dL 32-36 [facility] Work Phone: No Panel Informationon 11-30 Estimated GFR (MDRD) Amer 91 mL/min >60 [facility] Work Phone: Comment on above: GFR Calc Estimated GFR (MDRD) Non-Af Amer 75 mL/min >60 [facility] Work Phone: Comment on above: Non- GFR Calc Troponin I High Sensitivity 4 pg/mL 3.0-54.0 [facility] Work Phone: Comment on above: Please Note: New Catherine t Units and Gender Specific Reference Ranges. For more information see Policy Stat Procedure [facility] High Sensitivity Troponin (TNIH) and attachments. Platelets bldon 11-30-2021 Platelets (Bld) [#/Vol] 250 10*3/uL 150-450 [facility] Work Phone: Serum or plasma albumin patel urement (mass/volume)on 11-30-2021 Albumin [Mass/Vol] 3.0 g/dL 3.2-5.0 [facility] Work Phone: Serum or plasma albumin/glob ulin mass ratioon 11-30-2021 Albumin/Globulin [Mass ratio] 0.7 {ratio} 0.9-2.4 [facility] Work Phone: Serum or plasma calcium patel urement (mass/volume)on 11-30-2021 Calcium [Mass/Vol] 8.2 mg/dL 8.5-10.1 [facility] Work Phone: Serum or plasma creatinine m easurement (mass/volume)on 11-30-2021 Creatinine [Mass/Vol] 0.84 mg/dL 0.55-1.02 [facility] Work Phone: Comment on above: The validity of the calculated GFR & GFRAA in patients over 70 years has not been determined. Clinical correlation is essential. Serum or plasma urea nitroge n measurement (mass/volume)on 11-30-2021 Urea nitrogen [Mass/Vol] 15 mg/dL 7-18 [facility] Work Phone: Thin prep Papanicolaou smear with manual screeningon 11-30-2021 Thin prep Papanicolaou smear with manual screening 12 U/L 15-37 [facility] Work Phone: Thin prep Papanicolaou smear with manual screening 6 5-15 [facility] Work Phone: CULTURE WOUNDon 11-15-2021 CULTURE WOUND CULTURE WOUND _WOUND CULTURE_ M I C R O B I O L O G Y R E P O R T FINAL ------ Antimicrobial Susceptibility and Organism Identification Report ------- Specimen Number : [id number] Requested : 11/15/21 Specimen Source : WOUND Collected : 11/15/21 16:02 [place] of Isolation : OUTPATIENT Received : 11/15/21 16:02 Requesting Physician : JOHN PARNELL Patient/Specimen Tests and Comments Specimen Comments ------- ------- FINAL REPORT: ABUNDANT GROWTH COAG POSITIVE STAPH SOURCE: LEFT FOOT ULCER Organisms Identified -------- * 01 Staphylococcus aureus 11/18/21 Comments ------- ------- abundant growth Tech : Source : WOUND ID # : [id number] FINAL Report Date : / / : Collected : 11/15/21 16:02 Continued on Next Page M I C R O B I O L O G Y R E P O R T FINAL ------ Antimicrobial Susceptibility and Organism Identification Report ------- Isolate 01 Staphylococcus aureus Staphylococcus aureus [facility] Sys. Urine UNITS ML/DL --- ----- ----- Amp/Sulbactam <=8/4 S Ampicillin >8 [facility]ANY Amox/K Clav <=4/2 S Clindamycin <=0.5 S Cefoxitin Screen <=4 NEG Ciprofloxacin <=1 S Daptomycin <=0.5 S Erythromycin <=0.5 S Nitrofurantoin <=32 Gentamicin <=4 S Levofloxacin <=1 S Linezolid 2 S Moxifloxacin <=0.5 S Oxacillin 1 S Penicillin >8 HANY Rifampin <=1 S Synercid <=0.5 S Trimeth/Sulfa <=0.5/9.5 S Tetracycline <=4 S Vancomycin 2 S B-Lactamase Positive +, ++, +++, or S = Susceptible N/R = Not Reported Hany = Beta Lactamase Positive I = Intermediate CC = Cost Code TFG = Thymidine-dependent Strain R = Resistant FLORA = mcg/ml (mg/L) Blank = Data not available, or drug not advisable or tested For Blood and CSF Isolates, a Beta-Lactamase test is recommended for Enterococus species. IB appears in place of S, I (S), +, ++, or +++ with species known to possess inducible B-lactamases; potentially they may become resistant to all B-lactam drugs. Monitoring of patients during/after therapy is recommended. Avoid other/combined B-lactam drugs. (a) Use maximum doses of drug with an aminoglycoside for P. aeruginosa in patients with granulocytopenia or serious infections. (b) Breakpoints based on parenteral dose. For cefuroxime Axetil (PO) use <8=S, 8-16=I, >16=R. (c) For non-enterococcal streptococci, Micrococcus species, and Listeria species, refer to the Ampicillin interpretation. * Interpretations based on approx. adult attainable systemic/urine levels, except drugs with <3 dilutions, which print NCCLS. Doses are guidelines; consider weight and renal/hepatic function. Urine interpretation for lower UTI only. Interpretations based on NCCLS M7-A2. Ticar/K Clav'ate for gram positives based on cafeteria table attendant's breakpoints. Tech : Source : WOUND ID # : [id number] FINAL Report Date : / / : Collected : 11/15/21 16:02 11/18/21.1539.KLS. 11/17/21.1204.BKO. 11/18/21.1539.KLS.COMPLETE Normal [facility] Comment on above: Performed By: #### 2 [id number] #### [facility],[address] [place] [address] Basophil percentageon 2021 Bilirubin [Mass/Vol] 0.40 mg/dL 0.20-1.00 [facility] Work Phone: Comment on above: For patients on eltr ombopag therapy, use of Dimension [place] TBIL is not recommended. Chloride [Moles/Vol] 104 mmol/L 98-107 [facility] Work Phone: Cholesterol [Mass/Vol] 152 mg/dL <200 [facility] Work Phone: Comment on above: <200 mg/dL Desirable 200-240 mg/dL Borderline >240 mg/dL High Risk Glucose [Mass/Vol] 161 mg/dL 74-106 [facility] Work Phone: Comment on above: Fasting Glucose resu lt greater than or equal to 126 mg/dL suggests DIABETES MELLITUS per A.D.A. criteria. Potassium [Moles/Vol] 4.1 mmol/L 3.5-5.1 [facility] Work Phone: Protein [Mass/Vol] 7.8 g/dL 6.4-8.2 [facility] Work Phone: Sodium [Moles/Vol] 138 mmol/L 136-145 [facility] Work Phone: Triglyceride [Mass/Vol] 78 mg/dL <199 [facility] Work Phone: Comment on above: The drugs N-Acetylcy steine and Metamizole may falsely depress this assay.Serum Triglycerides Reference Interval Normal <150 mg/dL Borderline high 150 - 199 mg/dL High 200 - 499 mg/dL Very High > or = 500 mg/dL Laboratory - Chemistry and C hemistry - challengeon 08-17-2021 ALP [Catalytic activity/Vol] 98 U/L 45-117 [facility] Work Phone: ALT [Catalytic activity/Vol] 27 U/L 13-56 [facility] Work Phone: CO2 [Moles/Vol] 25.0 mmol/L 21.0-32.0 [facility] Work Phone: Free T4 [Mass/Vol] 1.78 ng/dL 0.76-1.46 [facility] Work Phone: Globulin (S) [Mass/Vol] 4.1 g/dL 2.2-4.2 [facility] Work Phone: Urea nitrogen/Creatinine [Mass ratio] 21.7 mg/mg 10-20 [facility] Work Phone: No Panel Informationon 08-17 Estimated GFR (MDRD) Amer 105 mL/min >60 [facility] Work Phone: Comment on above: GFR Calc Estimated GFR (MDRD) Non-Af Amer 87 mL/min >60 [facility] Work Phone: Comment on above: Non- GFR Calc Thyroid Stimulating Hormone (TSH) 0.04 uIU/mL 0.358-3.74 [facility] Work Phone: Urine Microalbumin/Creatinin e Ratio 20.6 mg/g CRE <30 [facility] Work Phone: Vitamin D 25-Hydroxy 14.5 ng/mL [facility] Work Phone: Comment on above: Vitamin D 25(OH) Sta tus Range Deficiency <20 ng/mL (50nmol/L) Insufficiency 20 - 30 ng/mL (50 - 75 nmol/L) Sufficiency 30 - 100 ng/mL (75 - 250 nmol/L) Toxicity >100 ng/mL (>250 nmol/L) Serum or plasma albumin patel urement (mass/volume)on 08-17-2021 Albumin [Mass/Vol] 3.7 g/dL 3.2-5.0 [facility] Work Phone: Serum or plasma albumin/glob ulin mass ratioon 08-17-2021 Albumin/Globulin [Mass ratio] 0.9 {ratio} 0.9-2.4 [facility] Work Phone: Serum or plasma calcium patel urement (mass/volume)on 08-17-2021 Calcium [Mass/Vol] 9.2 mg/dL 8.5-10.1 [facility] Work Phone: Serum or plasma cholesterol in HDL measurement (mass/volume)on 08-17-2021 Cholesterol in HDL [Mass/Vol] 60 mg/dL >40 [facility] Work Phone: Comment on above: The drugs N-Acetylcy steine and Metamizole may falsely depress this assay. Reference Range HDL <40 mg/dL Low HDL Cholesterol HDL >or= 60 mg/dL High HDL Cholesterol Serum or plasma cholesterol in VLDL measurement (mass/volume)on 08-17-2021 Cholesterol in VLDL [Mass/Vol] 16 mg/dL 5-40 [facility] Work Phone: Serum or plasma creatinine m easurement (mass/volume)on 08-17-2021 Creatinine [Mass/Vol] 0.74 mg/dL 0.55-1.02 [facility] Work Phone: Comment on above: The validity of the calculated GFR & GFRAA in patients over 70 years has not been determined. Clinical correlation is essential. Serum or plasma low density lipoprotein (LDL) cholesterol measurement (mass/volume)on 08-17-2021 Cholesterol in LDL [Mass/Vol] 76 mg/dL 0-130 [facility] Work Phone: Serum or plasma urea nitroge n measurement (mass/volume)on 08-17-2021 Urea nitrogen [Mass/Vol] 16 mg/dL 7-18 [facility] Work Phone: Thin prep Papanicolaou smear with manual screeningon 08-17-2021 Thin prep Papanicolaou smear with manual screening 17 U/L 15-37 [facility] Work Phone: Thin prep Papanicolaou smear with manual screening 9 5-15 [facility] Work Phone: Thin prep Papanicolaou smear with manual screening 33.0 mg/L NO RANGE EST. [facility] Work Phone: Urine creatinine measurement (mass/volume)on 08-17-2021 Creatinine (U) [Mass/Vol] 160.00 mg/dL NO RANGE EST. [facility] Work Phone: Bacteria identified Cx Nom ( Wound)on 08-10-2021 Wound Culture Staphylococcus aureus [facility] Work Phone: Gram stain for investigation of transfusion reactionon 08-10-2021 Microscopic observation Gram stain Nom (Unsp spec) [facility] Work Phone: COVID PCR, SCREENING CONGREG ATEon 10-03-2019 CORONAVIRUS 2019,PCR NOT DETECTED Normal Not Detected [facility] Comment on above: Result Comment: This assay is designed to detect the N, ORF1ab and/or S genes of SARS-CoV-2 via nucleic acid amplification. A Negative (NOT DETECTED) result does not preclude 2019-nCoV infection since the adequacy of sample collection and/or low viral burden may result in presence of viral nucleic acids below the clinical sensitivity of this test method. Negative (NOT DETECTED) result should not be used as the sole basis for treatment or other patient management decisions. Rather negative results should be combined with clinical observations, patient history, and epidemiological information to make patient management decisions. Fact sheet for providers: https://www.fda.gov/media/921180/download Fact sheet for patients: https://www.fda.gov/media/482896/download This test has received FDA Emergency Use Authorization (EUA) and has been verified by [facility] ([facility]). This test is only authorized for the duration of time that circumstances exist to justify the authorization of the emergency use of in vitro diagnostic tests for the detection of SARS-CoV-2 virus and/or diagnosis of COVID-19 infection under section 564(b)(1) of the Act, 21 U.S.C. 360bbb-3(b)(1), unless the authorization is terminated or revoked sooner. [facility] ([facility]) is certified under CLIA-88 as qualified to perform high complexity testing. This tests analytical performance characteristics have been determined by [facility]. Testing is performed at [facility] is located at [address] [place] [address] (CLIA License #[id number], CAP #[id number]). Performed By: #### C VCLA #### [facility] [address] [place] [address] Lab Specimen Source Nasal, Nasopharyngeal Normal [facility] Comment on above: Performed By: #### C VCLA #### [facility] [address] [place] [address] MALBRon 11-09-2018 U Creatinine 68.4 mg/dL [facility] Comment on above: Performed By: #### M ALBR #### [address] [address] U Microalb 586 mcg/dL [facility] Comment on above: Performed By: #### M ALBR #### [address] [address] U Ratio Alb/Cre 8.6 mcg/mg Normal 0.0-24.9 [facility] Comment on above: Performed By: #### M ALBR #### [address] [address] .GFRon 11-08-2018 GFR Non- 100 ml/min/1.73sqm [facility] Comment on above: Result Comment: GFR Population mean for , Non- Americans Ages 20-29 = 116 mL/min/1.73 sq.m. Ages 30-39 = 107 mL/min/1.73 sq.m. Ages 40-49 = 99 mL/min/1.73 sq.m. Ages 50-59 = 93 mL/min/1.73 sq.m. Ages 60-69 = 85 mL/min/1.73 sq.m. Ages 70+ = 75 mL/min/1.73 sq.m. Chronic Kidney Disease: Less than 60 mL/min/1.73 square meters End Stage Renal Disease: Less than 15 mL/min/1.73 square meters Performed By: #### T SH, FT4, LIPID, CMP, GFR #### [address] [address] GFR 121 ml/min/1.73sqm [facility] Comment on above: Result Comment: GFR Population mean for , Non- Americans Ages 20-29 = 116 mL/min/1.73 sq.m. Ages 30-39 = 107 mL/min/1.73 sq.m. Ages 40-49 = 99 mL/min/1.73 sq.m. Ages 50-59 = 93 mL/min/1.73 sq.m. Ages 60-69 = 85 mL/min/1.73 sq.m. Ages 70+ = 75 mL/min/1.73 sq.m. Chronic Kidney Disease: Less than 60 mL/min/1.73 square meters End Stage Renal Disease: Less than 15 mL/min/1.73 square meters Performed By: #### T SH, FT4, LIPID, CMP, GFR #### [address] [address] CMPon 11-08-2018 Albumin [Mass/Vol] 3.6 G/dL Normal 3.5-5.0 [facility] ([place] Comment on above: Performed By: #### T SH, FT4, LIPID, CMP, GFR #### [address] [address] Albumin/Globulin [Mass ratio] 1.2 {ratio} Normal 1.1-2.5 [facility] Comment on above: Performed By: #### T SH, FT4, LIPID, CMP, GFR #### [address] [address] ALP [Catalytic activity/Vol] 76 U/L Normal 40-135 [facility] Comment on above: Performed By: #### T SH, FT4, LIPID, CMP, GFR #### [address] [address] ALT [Catalytic activity/Vol] 18 U/L Normal 10-35 [facility] Comment on above: Performed By: #### T SH, FT4, LIPID, CMP, GFR #### [address] [address] AST [Catalytic activity/Vol] 14 U/L Normal 10-40 [facility] Comment on above: Performed By: #### T SH, FT4, LIPID, CMP, GFR #### [address] [address] Bili Total 0.4 mg/dL Normal 0.2-1.0 [facility] Comment on above: Performed By: #### T SH, FT4, LIPID, CMP, GFR #### [address] [address] Calcium [Mass/Vol] 8.3 mg/dL Low 8.4-10.2 [facility] ([place] Comment on above: Performed By: #### T SH, FT4, LIPID, CMP, GFR #### [address] [address] Chloride [Moles/Vol] 102 mmol/L Normal 98-107 [facility] ([place] Comment on above: Performed By: #### T SH, FT4, LIPID, CMP, GFR #### [address] [address] CO2 [Moles/Vol] 27 mmol/L Normal 22-29 [facility] Comment on above: Performed By: #### T SH, FT4, LIPID, CMP, GFR #### [address] [address] Creatinine [Mass/Vol] 0.63 mg/dL Normal 0.55-1.02 [facility] ([place]) Comment on above: Performed By: #### T SH, FT4, LIPID, CMP, GFR #### [address] [address] Electrolyte Balance 8.0 mEq/L Normal [facility] ([place]) Comment on above: Performed By: #### T SH, FT4, LIPID, CMP, GFR #### [address] [address] Globulin (S) [Mass/Vol] 3.0 G/dL [facility] Comment on above: Performed By: #### T SH, FT4, LIPID, CMP, GFR #### [place] [id number] Glucose [Mass/Vol] 168 mg/dL High 70-105 [facility] ([place] Comment on above: Performed By: #### T SH, FT4, LIPID, CMP, GFR #### [place] [id number] Potassium [Moles/Vol] 4.6 mmol/L Normal 3.5-5.1 [facility] ([place]) Comment on above: Performed By: #### T SH, FT4, LIPID, CMP, GFR #### [address] [address] Protein [Mass/Vol] 6.6 G/dL Normal 6.4-8.2 [facility] ([place]) Comment on above: Performed By: #### T SH, FT4, LIPID, CMP, GFR #### [place] [id number] Sodium [Moles/Vol] 137 mmol/L Normal 136-145 [facility] ([place] Comment on above: Performed By: #### T SH, FT4, LIPID, CMP, GFR #### [address] [address] Urea nitrogen [Mass/Vol] 12 mg/dL Normal 7-18 [facility] Comment on above: Performed By: #### T SH, FT4, LIPID, CMP, GFR #### [address] [address] Urea nitrogen/Creatinine [Mass ratio] 19 ratio Normal 7-27 [facility] Comment on above: Performed By: #### T SH, FT4, LIPID, CMP, GFR #### [address] [address] FT4on 11-08-2018 Free T4 [Mass/Vol] 1.26 ng/dL Normal 0.76-1.46 [facility] ([place] Comment on above: Performed By: #### T SH, FT4, LIPID, CMP, GFR #### [address] [address] LIPIDon 11-08-2018 Cholesterol [Mass/Vol] 150 mg/dL Normal 0-200 [facility] ([place]) Comment on above: Result Comment: Chol esterol Reference Interval: Less than 200 Desirable 200-239 Borderline high risk 240 and above High risk Performed By: #### T SH, FT4, LIPID, CMP, GFR #### [address] [address] Cholesterol in HDL [Mass/Vol] 59 mg/dL Normal 40-60 [facility] Comment on above: Performed By: #### T SH, FT4, LIPID, CMP, GFR #### [address] [address] Cholesterol in LDL [Mass/Vol] 80 mg/dL Normal 0-130 [facility] Comment on above: Performed By: #### T SH, FT4, LIPID, CMP, GFR #### [address] [address] Triglyceride [Mass/Vol] 56 mg/dL Normal 0-150 [facility] Comment on above: Result Comment: Trig lyceride Reference Interval: Less than 150 Normal 150-199 Borderline high risk 200-499 High risk 500 or higher Very high risk Performed By: #### T SH, FT4, LIPID, CMP, GFR #### [address] [address] TSHon 11-08-2018 TSH Qn 3.28 mcIU/mL Normal 0.36-3.74 [facility] Comment on above: Performed By: #### T SH, FT4, LIPID, CMP, GFR #### [place] [address] Final Surgical Pathology Rep yovany 05-07-2018 Final Surgical Pathology Report . Pathology Reports Accession: Collected Date/Time: Received Date/Time: Pathologist: [id number] 05/02/2018 08:42 EST 05/03/2018 08:42 EST MD CHECO IRIZARRY Final Surgical Pathology Report DIAGNOSIS: BONE, LEFT 1ST METATARSAL, EXCISION: ACUTE OSTEOMYELITIS. COMMENT: [facility] - A# [id number] CLINICAL INFORMATION: NON-HEALING ULCER TO BONE LEFT FOOT ABSCESS SPECIMEN: A 1ST METATARSAL BONE - LEFT GROSS DESCRIPTION: Received in formalin labeled with the patient's name is a 1.6 x 1.1 x 0.9 cm portion of rachel-red hard bone. Sectioning shows grossly unremarkable cut surfaces. TS -1 following decalcification Dictated by Nichole GRANT ([facility]) MICROSCOPIC DESCRIPTION: Slides reviewed. Electronically Signed by Pathology Report verified by [facility] Electronically signed by CHECO IRIZARRY MD Sign out Date: 05/07/2018 15:33 Performing Lab: [address] ([place]) Comment on above: Performed By: #### S PFR #### [place] [address] PROGRESSon 11-15-2017 Protein mass conc HNO ID: [id number] Author: Maria L Carney PSR Service: (none) Author Type: (none) Type: Progress Notes Filed: 11/15/2017 9:35 AM Note Text: Pap logged and Normal Pap letter sent to patient. Maria L Carney PSR Normal [facility] CNOVon 11-07-2017 CNOV Office Visit (WOOB) -----FAY LEES ([id number]) 1965 F BLDDate Time Provider Department11/07/17 2:30 PM PENNY SOSA During your visit today, we recorded the following information about you: Blood pressure Weight Height 110/62 88.9 kg 1.626 Uriel Benites MD 11/07/2017 3:57 PM Nikki Lees is a 51 year old who presents for her annual gynecologicexam without complaints. One son age 20- planning trip to [facility] next year [facility] birthday.Menses: none- ablation but last 2 months with brown/mucous discharge. .Contraception: tubal ligationHPV vaccine: NoLast Pap: 2011 normal HPV: negativeHistory of abnormal pap: NoLast mammogram: 2017normalSexually active: YesHistory of STDS: NonePatient concerns for STD exposure: No.Pain with intercourse: YesPostcoital bleeding: NoHot flashes: YesNight sweats: YesVaginal dryness: YesExercise: not routine right nowDiet: not well balanced- does not eat much per patientObstetric History T0 L1 SAB0 TAB0 Ectopic0 Multiple0 Live [id number] MEDICAL HISTORYDiagnosis Date- Cellulitis of buttock, left 10/03/2016 [facility]- Dysmenorrhea- Excessive or frequent menstruation Heavy periods- Type I (juvenile type) diabetes mellitus with neurological manifestations,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,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)PAST SURGICAL HISTORYProcedure Laterality Date- AMPUTATE TOE; IP JOINT Left 03/2015- DELIVERY ONLY 1997 , low cervical- ENDOMETRIAL BIOPSY 08/18/2008 Menorrhagia and Dysmenorrhea- HYSTEROSCOPY, ABLATION 03/14/2012 Novasure- LIGATE FALLOPIAN TUBE 12/1997 Tubal ligation- PAST SURGICAL HISTORY OF numerous eye surgeries- BL- PAST SURGICAL HISTORY OF numerous foot surgeries- BL- PAST SURGICAL HISTORY OF 04/08/15 toe(s) removal- PICC LINE 04/08/15- REMOVAL ADENOIDS,PRIMARY,<12 Y/O Adenoidectomy- REMOVAL OF TONSILS,<12 Y/O TonsillectomyFAMILY HISTORYProblem Relation Age of Onset- Diabetes Mother- Diabetes Maternal Grandfather- Diabetes Paternal Grandmother- Heart Maternal Grandmother- Heart Maternal Grandfather- Heart Paternal GrandmotherSOCIAL HISTORYSocial HistorySubstance Use Topics- Smoking status: Never Smoker- Smokeless tobacco: Never Used- Alcohol use Yes Comment: occasionallyREVIEW OF SYSTEMSAbdomen: No abdominal pain, nausea, vomiting,. + constipation. No bloating,early satiety, indigestion, or increased flatulence.Bladder: No dysuria, gross hematuria, urinary frequency, urinary urgency, orincontinence.Breast: No breast lumps, nipple d/c, overlying skin changes, redness or skinretraction.Allergies and current medication updated:YesEXAM: There were no vitals taken for this visit.GENERAL: pleasant, female in no apparent distressHEENT: Normocephalic, atraumatic, mucus membranes moist and no lesionsNECK: Supple, full range of motion, no adenopathy and thyroid normalDERMATOLOGY: Normal, without lesions, non-icteric and non-hirsuteBREAST: soft, non-tender, symmetric, no dominant mass, normal nipple-areolarcomplex, no lymphadenopathy and no nipple dischargeABDOMEN: soft, non-tender and no massesPELVIC: external genitalia normal, normal Bartholin's glands, urethra, [place]'sglands, no vulvar lesions, no cervical lesions, good vaginal support,physiologic discharge present, normal appearing perineal body and perianalregion, atrophic changesBIMANUAL: uterus normal size, shape and consistency, no adnexal masses andnon-tenderRECTOVAGINAL: deferredNEURO: alert and oriented x3,exam grossly non-focalEXTREMITIES: normalASSESSMENT/PLAN:1) Health maintenance:Pap done with HPV.Mammogram ordered.Nutrition, exercise and routine health maintenance exams reviewed.Calcium/Vitamin D supplementation information provided.2) Contraception: tubal ligation. Contraceptive options reviewed andinformation provided.3) STD screening: Declined STD check.4) Follow up one year or sooner as neededPenny Benites MDRebelena Carney PSR 11/15/2017 9:35 AM SignedPap logged and Normal Pap letter sent to patient.Maria L Carney PSRReferring Provider: SELF [200]Allergies As of Date: 11/07/2017 Noted Allergy ReactionVICODIN (HYDROCODONE-ACETAMINOPHE*1 11 - VomitingDate Reviewed: 11/07/2017Reviewed by: Penny Salomon - Fully AssessedReason for Visit: Yearly Exam [187]Primary Visit Diagnosis:Special screening examination for human papillomavirus (HPV) [Z11.51] Other Visit Diagnoses:Encounter for gynecological examination without abnormal finding [Z01.419] Screening for malignant neoplasm of cervix [Z12.4] Encounter for screening mammogram for malignant neoplasm of breast [Z12.31]Order(s):PAP FLUID CERVICAL SCREENING [[id number]] Order #: [id number]. #:[id number] MIGUE SCREENING [[id number]] Order #: [id number] FUTURE HPV W/GENOTYPE [SQHPVHRR] Order #: [id number]. #:[id number] ons as of 11/07/2017 Sig: LANTUS SOLOSTAR U-100 INSULIN* use if insulin pump fails, as* BENZONATATE 100 MG CAPSULE Take 1 capsule by mouth three* LEVOTHYROXINE 125 MCG TABLET Take 1 tablet by mouth once d* CLOTRIMAZOLE-BETAMETHASONE 1 * Apply 1 application to affect* INSULIN LISPRO (U-100) 100 UN* Use as directed in insulin pu* FLUOXETINE 20 MG CAPSULE Take 1 capsule by mouth once * ENALAPRIL MALEATE 20 MG TABLET Take 0.5 tablets by mouth onc* SIMVASTATIN 20 MG TABLET Take 1 tablet by mouth daily * BLOOD SUGAR DIAGNOSTIC STRIPS testing blood sugars six time* CHOLECALCIFEROL (VITAMIN D3) * Take 1 tablet by mouth once d* LANCETS Test glucose 6x/day. 250.63. * MULTIVITAMIN TABLET Take one(1) tablet daily.Problem List As Of Date 11/07/2017 Noted Resolved DIABETES TYPE I W NEURO MANIF-UNCONTRLLD [E10.4*INVALID FOR*01/27/2014 DYSMENORRHEA [N94.6] Type I (juvenile type) diabetes mellitus with o* 01/27/2014 OPEN WOUND TOE-COMPL [S91.109A] INVALID FOR* Hypothyroidism [E03.9] INVALID FOR*10/01/2015 Hyperparathyroidism (HCC) [E21.3] INVALID FOR* Vitamin D deficiency [E55.9] INVALID FOR* Secondary hyperparathyroidism [N25.81] INVALID FOR* Excessive or frequent menstruation [N92.0] INVALID FOR* Irregular menstrual cycle [N92.6] INVALID FOR* Foot ulcer due to secondary DM (HCC) [E13.621, *INVALID FOR* More... Uncontrolled type 1 diabetes mellitus with opht* 10/01/2015 Type 1 diabetes mellitus with neurological dory* 10/01/2015 Hypertension [I10] INVALID FOR*10/01/2015 BMI 32.0-32.9,adult [Z68.32] INVALID FOR* Uncontrolled type 1 diabetes mellitus with diab*INVALID FOR* Uncontrolled type 1 diabetes mellitus with reti*INVALID FOR* More... Acquired hypothyroidism [E03.9] INVALID FOR* Essential hypertension [I10] INVALID FOR* More... Mixed hyperlipidemia [E78.2] INVALID FOR* More... Hot flashes [R23.2] INVALID FOR* More... Insulin pump status [Z96.41] INVALID FOR* More... 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 and 5:00p.m.Sincerely,Penny Salomon MDEncounter Number: [id number] Status:Closed by PENNY SALOMON MD on 11/07/17 Normal [facility] CYTOLOGYon 11-07-2017 CYTOLOGY ADDITIONAL PROCEDURES PRESENT [facility]: [id number] Physician: FRED LEDEZMAPECIMEEnder SUBMITTEDA: CERVICAL, SCREENING, FLUID FINAL DIAGNOSISA. CERVICAL, SCREENING, FLUIDSatisfactory for interpretation.No endocervical component.Negative for intraepithelial lesion or malignancy.This specimen has been analyzed by the ThinPrep Imaging System, anautPure Energy Solutionsed imaging and review system, which assists the laboratory inevaluating cells on ThinPrep Pap tests. Following automated imaging,selected gutierrez from every slide are reviewed by a machine maintenance.NAVA Nguyen(ASCP) (Electronic Signature) ADDITIONAL PROCEDURE(S)HUMAN PAPILLOMA VIRUS Date Ordered: 11/09/2017 Date Reported: 11/10/2017 Procedure Results and InterpretationNegative for HPV DNA high risk type 16 by PCR.Negative for HPV DNA high risk type 18 by PCR.Negative for HPV DNA high risk types: 31,33,35,39,45,51,52,56,58, 59,66,68by PCR.This test was developed and its performance characteristics determined by[facility] Laboratory MedicineInstitmash[facility] ([facility]).It has not been cleared or approved by the FDA. -PLTX is regulated underCLIA as qualified to perform high-complexity testing. This test is used forclinical purposes. It should not be regarded as investigational or forresearch.CLINICAL DATA ROUTINE EXAM, HPV Testing: Yes, automatic HPV patients over 30Date of Last Menstrual Period:AblationSTAINSA: CERVICAL, SCREENING, FLUID THIN PREP GYNJennifer Luís Alberts, Laboratory DirectorPatient ID #: [id number] of Report: 11/15/2017Date of Procedure: 11/07/2017Date of Receipt: 11/09/2017Submitted by: PENNY SALOMON MDLocation: WOREFDiagnostic interpretation performed at [facility], [address] [place] [address].The Pap Smear is a screening test for cervical cancer. False negativeresults occur with all screening tests, emphasizing the need forrescreening at recommended intervals, and clinical correlation. Normal [facility] HPV w/Genotypeon 11-07-2017 HPV HighRisk Other Negative for HPV DNA high risk types: 31,33,35,39,45,51,52,56,58, 59,66,68 by PCR. Normal [facility] Comment on above: Result Comment: This test was developed and its performance characteristics determined by [facility] Laboratory Medicine [place] ([facility]).It has not been cleared or approved by the FDA. -PLTX is regulated under CLIA as qualified to perform high-complexity testing. This test is used for clinical purposes. It should not be regarded as investigational or for research. Performed By: #### H PVHRR ####[facility] [address] [place], [place] [phone] HPV HighRisk Type 16 Negative Normal [facility] Comment on above: Performed By: #### H PVHRR ####[facility] [place], [place] [phone] HPV HighRisk Type 18 Negative Normal [facility] Comment on above: Performed By: #### H PVHRR ####[facility] [place], [place] [phone] PROGRESSon 11-07-2017 Protein mass conc HNO ID: [id number] thor: Penny Anderson: (none)Author Type: PhysicianType: Progress NotesFiled: 11/07/2017 3:57 PMNote Text:Fay Lees is a 51 year old who presents for her annualgynecologic exam without complaints. One son age 20- [facility].Menses: none- ablation but last 2 months with brown/mucous discharge. .Contraception: tubal ligationHPV vaccine: NoLast Pap: 2011 normal HPV: negativeHistory of abnormal pap: NoLast mammogram: 2018normalSexually active: YesHistory of STDS: NonePatient concerns for STD exposure: No.Pain with intercourse: YesPostcoital bleeding: NoHot flashes: YesNight sweats: YesVaginal dryness: YesExercise: not routine right nowDiet: not well balanced- does not eat much per patientObstetric History T0 L1 SAB0 TAB0 Ectopic0 Multiple0 Live Dosbby0UTSV MEDICAL HISTORYDiagnosis Date- Cellulitis of buttock, left 10/03/2016 [facility]- Dysmenorrhea- Excessive or frequent menstruation Heavy periods- Type I (juvenile type) diabetes mellitus with neurologicalmanifestations, uncontrolled(250.63)- 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,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)PAST SURGICAL HISTORYProcedure Laterality Date- AMPUTATE TOE; IP JOINT Left 03/2015- DELIVERY ONLY 1997 , low cervical- ENDOMETRIAL BIOPSY 08/18/2008 Menorrhagia and Dysmenorrhea- HYSTEROSCOPY, ABLATION 03/14/2012 Novasure- LIGATE FALLOPIAN TUBE 12/1997 Tubal ligation- PAST SURGICAL HISTORY OF numerous eye surgeries- BL- PAST SURGICAL HISTORY OF numerous foot surgeries- BL- PAST SURGICAL HISTORY OF 04/08/15 toe(s) removal- PICC LINE 04/08/15- REMOVAL ADENOIDS,PRIMARY,<12 Y/O Adenoidectomy- REMOVAL OF TONSILS,<12 Y/O TonsillectomyFAMILY HISTORYProblem Relation Age of Onset- Diabetes Mother- Diabetes Maternal Grandfather- Diabetes Paternal Grandmother- Heart Maternal Grandmother- Heart Maternal Grandfather- Heart Paternal GrandmotherSOCIAL HISTORYSocial HistorySubstance Use Topics- Smoking status: Never Smoker- Smokeless tobacco: Never Used- Alcohol use Yes Comment: occasionallyREVIEW OF SYSTEMSAbdomen: No abdominal pain, nausea, vomiting,. + constipation. Nobloating, early satiety, indigestion, or increased flatulence.Bladder: No dysuria, gross hematuria, urinary frequency, urinary urgency,or incontinence.Breast: No breast lumps, nipple d/c, overlying skin changes, redness orskin retraction.Allergies and current medication updated:YesEXAM: There were no vitals taken for this visit.GENERAL: pleasant, female in no apparent distressHEENT: Normocephalic, atraumatic, mucus membranes moist and no lesionsNECK: Supple, full range of motion, no adenopathy and thyroid normalDERMATOLOGY: Normal, without lesions, non-icteric and non-hirsuteBREAST: soft, non-tender, symmetric, no dominant mass, normalnipple-areolar complex, no lymphadenopathy and no nipple dischargeABDOMEN: soft, non-tender and no massesPELVIC: external genitalia normal, normal Bartholin's glands, urethra,[place]'s glands, no vulvar lesions, no cervical lesions, good vaginalsupport, physiologic discharge present, normal appearing perineal body andperianal region, atrophic changesBIMANUAL: uterus normal size, shape and consistency, no adnexal masses andnon-tenderRECTOVAGINAL: deferredNEURO: alert and oriented x3,exam grossly non-focalEXTREMITIES: normalASSESSMENT/PLAN:1) Health maintenance:Pap done with HPV.Mammogram ordered.Nutrition, exercise and routine health maintenance exams reviewed.Calcium/Vitamin D supplementation information provided.2) Contraception: tubal ligation. Contraceptive options reviewed andinformation provided.3) STD screening: Declined STD check.4) Follow up one year or sooner as neededPenny Benites MD Normal [facility] Christine 09-28-2017 CNPN Telephone (WOOB) -----FAY LEES ([id number]) 1965 F BLDDate Time Provider Department09/28/17 JORGE GORDON ([facility]) WOOB During your visit today, we recorded the following information about you:Imelda Avalos LPN 09/28/2017 9:29 AM SignedPt calling in with c/o UTI sxs, burning with urination urgency and frequencyfor the past 24hrs. 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 She is wanting to know if we would call in an antibiotic for her.Pt is diabetic and her sugar is running at 75 this am, pt rechecked at thistime with a reading of 259 pt is on an insulin pump. She last ate at 5:30am shehad orange juice and then had fresh fruit and nothing since. Please advise howto proceed from here. Imelda Gordon APRN.CNM 09/28/2017 9:51 AM SignedI would prefer for patient to come in for visit so we can collect a urineculture...however since she is able to come in and her urine 10-dip showsevidence of a possible UTI I have submitted an order to her listed pharmacy forMacrobid. Please notify patient if she is hot starting to get relief bytomorrow, she should be seen by our office. Jorge Gordon APRN.Cuong Lobo RN 09/28/2017 10:07 AM SignedPatient notified. Please leave phone note open for when patient calls back withan update on 09/29/17.Scarlett Carlson RN 10/04/2017 10:06 AM SignedAttempted to call patient. Unable to leave message-mailbox is full. Wanted tofollow up with patient to see if Macrobid improved her symptoms.Mandy Carlson RNAllergies As of Date: 09/28/2017 Noted Allergy ReactionVICODIN (HYDROCODONE-ACETAMINOPHE*1 11 - VomitingDate Reviewed: 05/26/2017Reviewed by: Lenore Null - Fully AssessedReason for Visit: UTI [116]Order(s):nitrofurantoi n monohydrate and macrocrystal (MACROBID) 100 mg capsuleTake 1 capsule by mouth twice daily for 7 days.Disp: 14 capsuleRfl: 0Prescriptions as of 09/28/2017 Sig: NITROFURANTOIN MONOHYDRATE AND * Take 1 capsule by mouth twice* LANTUS SOLOSTAR U-100 INSULIN* use if insulin pump fails, as* BENZONATATE 100 MG CAPSULE Take 1 capsule by mouth three* LEVOTHYROXINE 125 MCG TABLET Take 1 tablet by mouth once d* CLOTRIMAZOLE-BETAMETHASONE 1 * Apply 1 application to affect* INSULIN LISPRO (U-100) 100 UN* Use as directed in insulin pu* FLUOXETINE 20 MG CAPSULE Take 1 capsule by mouth once * ENALAPRIL MALEATE 20 MG TABLET Take 0.5 tablets by mouth onc* SIMVASTATIN 20 MG TABLET Take 1 tablet by mouth daily * BLOOD SUGAR DIAGNOSTIC STRIPS testing blood sugars six time* CHOLECALCIFEROL (VITAMIN D3) * Take 1 tablet by mouth once d* LANCETS Test glucose 6x/day. 250.63. * MULTIVITAMIN TABLET Take one(1) tablet daily.Problem List As Of Date 09/28/2017 Noted Resolved DIABETES TYPE I W NEURO MANIF-UNCONTRLLD [E10.4*INVALID FOR*01/27/2014 DYSMENORRHEA [N94.6] Type I (juvenile type) diabetes mellitus with o* 01/27/2014 OPEN WOUND TOE-COMPL [S91.109A] INVALID FOR* Hypothyroidism [E03.9] INVALID FOR*10/01/2015 Hyperparathyroidism (HCC) [E21.3] INVALID FOR* Vitamin D deficiency [E55.9] INVALID FOR* Secondary hyperparathyroidism [N25.81] INVALID FOR* Excessive or frequent menstruation [N92.0] INVALID FOR* Irregular menstrual cycle [N92.6] INVALID FOR* Foot ulcer due to secondary DM (HCC) [E13.621, *INVALID FOR* More... Uncontrolled type 1 diabetes mellitus with opht* 10/01/2015 Type 1 diabetes mellitus with neurological dory* 10/01/2015 Hypertension [I10] INVALID FOR*10/01/2015 BMI 32.0-32.9,adult [Z68.32] INVALID FOR* Uncontrolled type 1 diabetes mellitus with diab*INVALID FOR* Uncontrolled type 1 diabetes mellitus with reti*INVALID FOR* More... Acquired hypothyroidism [E03.9] INVALID FOR* Essential hypertension [I10] INVALID FOR* More... Mixed hyperlipidemia [E78.2] INVALID FOR* More... Hot flashes [R23.2] INVALID FOR* More... Insulin pump status [Z96.41] INVALID FOR* More... Insulin pump titration [Z46.81] INVALID FOR*Prescriptions ordered this encounter Disp Refills Start End NITROFURANTOIN MONOHYDRATE AND MACROCR* 14 c* 0 09/28/2017 10/05/2017 Route: ORAL Sig: Take 1 capsule by mouth twice daily for 7 days. Status:Closed by JORGE GORDON CNM on 09/28/17 [facility] 09-21-2017 CNCO HNO ID: [id number] thor: Mammography CoordinatorService: (none)Author Type: PhysicianType: LetterFiled: 09/25/2017 11:31 PMNote Text:September 21, 2017 PID: [id number] L. Stoll[address] [place] [id number] Ms. Lees,We are pleased to inform you that the results of your recent breastimaging exam on 09/21/2017 are normal. Early detection of cancer is veryimportant. We also understand recommendations regarding breast cancerscreening are controversial. Please discuss with your primary careprovider which strategy is best for you and whether a mammogram is rightfor you.Your imaging studies and report will be [facility] part of your permanent medical record and are available for yourcontinuing care.Thank you for allowing us to help in meeting your health care needs.Sincerely,Dr. DoInterpreting RadiologistWRio Hondo Hospital (Normal over 40) Normal [facility] SCREENINGon 09-21-2017 [facility] SCREENING * * *Final Report* * *DATE OF EXAM: Sep 21 2017 7:27AM WO 0581 - [facility] SCREENING / REASON: Encounter for screening mammogram for malignant neoplasm of breast * * * * Physician Interpretation * * * *RESULT: #[id number] - MIGUE SCREENINGBILATERAL DIGITAL SCREENING MAMMOGRAM WITH CAD: 09/21/2017HISTORY: Encounter For Screening Mammogram For Malignant Neoplasm Of Breast /Screening Mammogram - patient reports NO breast symptoms /Priors available for comparison.RESULT:TECHNIQUE : The study was acquired using full field digital technology and interpreted from soft copy.Current study was also evaluated with a Computer Aided Detection (CAD).Comparison is made to exams dated: 08/18/2015 mammogram and 06/10/2014 mammogram - [facility].There are scattered fibroglandular elements in both breasts.No significant masses, calcifications, or other findings are seen in either breast.There has been no significant interval change.IMPRESSION: NEGATIVEThere is no mammographic evidence of malignancy. A 1 year screening mammogram is recommended.Clarisse Santoyo/penrad:09/21/2017 07:50:29Imaging Technologist: Delmy KNIGHT)(Angel), [facility] Centerletter sent: Normal over 40Mammogram BI-RADS: 1 NegativeTranscriptionist: KyungTranscribe Date/Time: Sep 21 2017 7:38ADictated by: CLARISSE DO MDThis examination was interpreted and the report reviewed and electronically signed by: CLARISSE DO MD on Sep 21 2017 7:50AM [id number] [facility] CNPN Telephone (WHQ) ----FAY LEES ([id number]) 1965 [facility] Time Provider Department07/18/17 PENNY SOSA Di During your visit today, we recorded the following information about you:Mona Carias Psr 07/18/2017 2:15 PM SignedPt has been scheduled for her Annual and Mammogram. Please enter the ScreeningMammogram order. Thank you.Jacklyn Stiles RN 07/18/2017 2:19 PM SignedPlease file pended mammogram order.Jacklyn Stiles RN 07/18/2017 2:19 PM SignedAddended by: JACKLYN STILES RN on: 07/18/2017 02:19 PM Modules accepted: Mckayla Benites MD 07/18/2017 4:40 PM SignedorderCharlotte Benites MD 07/18/2017 4:40 PM SignedAddended by: PENNY SALOMON MD on: 07/18/2017 04:40 PM Modules accepted: OrdersAllergies As of Date: 07/18/2017 Noted Allergy ReactionVICODIN (HYDROCODONE-ACETAMINOPHE*1 11 - VomitingDate Reviewed: 05/26/2017Reviewed by: Lenore Null - Fully AssessedReason for Visit: Orders [681]Primary Visit Diagnosis:Encounter for screening mammogram for malignant neoplasm of breast [Z12.31]Order(s):[facility] SCREENING [[id number]] Order #: [id number] FUTUREPrescriptions as of 07/18/2017 Sig: LANTUS SOLOSTAR U-100 INSULIN* use if insulin pump fails, as* BENZONATATE 100 MG CAPSULE Take 1 capsule by mouth three* LEVOTHYROXINE 125 MCG TABLET Take 1 tablet by mouth once d* CLOTRIMAZOLE-BETAMETHASONE 1 * Apply 1 application to affect* INSULIN LISPRO (U-100) 100 UN* Use as directed in insulin pu* FLUOXETINE 20 MG CAPSULE Take 1 capsule by mouth once * ENALAPRIL MALEATE 20 MG TABLET Take 0.5 tablets by mouth onc* SIMVASTATIN 20 MG TABLET Take 1 tablet by mouth daily * BLOOD SUGAR DIAGNOSTIC STRIPS testing blood sugars six time* CHOLECALCIFEROL (VITAMIN D3) * Take 1 tablet by mouth once d* LANCETS Test glucose 6x/day. 250.63. * MULTIVITAMIN TABLET Take one(1) tablet daily.Problem List As Of Date 07/18/2017 Noted Resolved DIABETES TYPE I W NEURO MANIF-UNCONTRLLD [E10.4*INVALID FOR*01/27/2014 DYSMENORRHEA [N94.6] Type I (juvenile type) diabetes mellitus with o* 01/27/2014 OPEN WOUND TOE-COMPL [S91.109A] INVALID FOR* Hypothyroidism [E03.9] INVALID FOR*10/01/2015 Hyperparathyroidism (HCC) [E21.3] INVALID FOR* Vitamin D deficiency [E55.9] INVALID FOR* Secondary hyperparathyroidism [N25.81] INVALID FOR* Excessive or frequent menstruation [N92.0] INVALID FOR* Irregular menstrual cycle [N92.6] INVALID FOR* Foot ulcer due to secondary DM (HCC) [E13.621, *INVALID FOR* More... Uncontrolled type 1 diabetes mellitus with opht* 10/01/2015 Type 1 diabetes mellitus with neurological dory* 10/01/2015 Hypertension [I10] INVALID FOR*10/01/2015 BMI 32.0-32.9,adult [Z68.32] INVALID FOR* Uncontrolled type 1 diabetes mellitus with diab*INVALID FOR* Uncontrolled type 1 diabetes mellitus with reti*INVALID FOR* More... Acquired hypothyroidism [E03.9] INVALID FOR* Essential hypertension [I10] INVALID FOR* More... Mixed hyperlipidemia [E78.2] INVALID FOR* More... Hot flashes [R23.2] INVALID FOR* More... Insulin pump status [Z96.41] INVALID FOR* More... Insulin pump titration [Z46.81] INVALID FOR* Status:Closed by MONA JIANG on 07/18/17 Normal [facility] PROGRESSon 05-29-2017 Protein mass conc HNO ID: [id number] thor: Eri White RdmsService: (none)Author Type: (none)Type: Progress NotesFiled: 05/29/2017 4:42 PMNote Text: Radiology Service Progress NotePATIENT NAME: Fay LeesMRN: [id number] OF SERVICE: May 29, 2017TIME: 2:35 PMPATIENT IDENTITY VERIFICATION COMPLETED USING TWO (2) METHODS: Patientconfirmed name verbally and Date of .PATIENT GENDER DATA: femalePATIENT RELEVANT IMPLANT DATA REVIEWED: Not ApplicableRADIOLOGY DEPARTMENT: UltrasoundPERIPHERAL IV DATA: Not applicableSIGNED BY: Eri White RdmsFebruary 2017 2:35 PM Normal [facility] US FEMALE PELVIS TRANSVAGon 05-29-2017 US FEMALE PELVIS TRANSVAG * * *Final Report* * *DATE OF EXAM: May 29 2017 3:23PM U 1060 - US FEMALE PELVIS TRANSVAG / REASON: Left lower quadrant pain * * * * Physician Interpretation * * * * Ultrasound pelvis:HISTORY: 51 years oldClinical information: Bilateral pelvic pain Left lower quadrant pain patient is had a previous endometrial ablation 2012TECHNIQUE: Transabdominal and transvaginal scans:Images stored and permanent archive.LMP: UnknownComparison: Ultrasound 02/08/2012RESULT:Findings:M easurements:Uterus 7.3 x 3.7 x 4.5 cm .Changes related to previous ablation and endometrium heterogeneous and this area with a linear area of calcification. Also some small amount of fluid is seen in the area of the endometrial cavity.Uterine texture: Very heterogeneousUterine mass: Complex density in the endocervical canal measuring 10 x 5 x 17 mm could represent a polypoid lesion.Right ovary: 2.8 x 1.6 x 1.8 cm . There is a simple cyst in the RIGHT ovary 12 mm in sizeLeft ovary: Not seen .IMPRESSION:1. Uterine texture very heterogeneous as can be seen with adenomyosis2. Changes related to endometrial ablation3. Complex density in the endocervical canal could represent a polypoid lesion.4. Simple cyst in the RIGHT ovaryTranscriptionist: PSCB Transcribe Date/Time: May 30 2017 8:31ADictated by : Tracee ANTOINE examination was interpreted and the report reviewed and electronically signed by: AMY VINES DO on May 30 2017 8:35AM [id number] Normal [facility] PROGRESSon 05-26-2017 Protein mass conc HNO ID: [id number] thor: Lenore Ely: (none)Author Type: PhysicianType: Progress NotesFiled: 05/26/2017 5:12 PMNote Text:Fay Lees is a 51 year old female who presents for LLQ painHPI: Patient presents with LLQ pain for 1 day. She tried ibuprofen withno relief. No thing makes the pain worse. The pain is sharp ANDintermittent. 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,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)PAST SURGICAL HISTORYProcedure Laterality Date- DELIVERY ONLY 1997 , low cervical- ENDOMETRIAL BIOPSY 08/18/2008 Menorrhagia and Dysmenorrhea- HYSTEROSCOPY, ABLATION 03/14/2012 Novasure- LIGATE FALLOPIAN TUBE 12/1997 Tubal ligation- PAST SURGICAL HISTORY OF numerous eye surgeries- BL- PAST SURGICAL HISTORY OF numerous foot surgeries- BL- PAST SURGICAL HISTORY OF 04/08/15 toe(s) removal- PICC LINE 04/08/15- REMOVAL ADENOIDS,PRIMARY,<12 Y/O Adenoidectomy- REMOVAL OF TONSILS,<12 Y/O TonsillectomyFAMILY HISTORYProblem Relation Age of Onset- Diabetes Mother- Diabetes Maternal Grandfather- Diabetes Paternal Grandmother- Heart Maternal Grandmother- Heart Maternal Grandfather- Heart Paternal GrandmotherSocial History Marital status: Spouse name: Years of education: Number of children: 1Occupational 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*Social History Main Topics Smoking status: Never Smoker Smokeless status: Never Used Alcohol use: Yes Comment: occasionally Drug use: No Sexual activity: Yes Partners with: Male control/protection: Surgical Comment: tubal/ablationSocial History Narrative Works [facility] [place], dietaryCurrent Outpatient Prescriptions:LANTUS SOLOSTAR 100 unit/mL (3 mL) inpn use if insulin pump fails, asdirectedbenzonatate (TESSALON PERLES) 100 mg capsule Take 1 capsule by mouth threetimes daily as needed.levothyroxine (SYNTHROID) 125 mcg tablet Take 1 tablet by mouth oncedaily.clotrimazole-beta methasone (LOTRISONE) cream Apply 1 application toaffected area twice daily.insulin lispro (HUMALOG) 100 unit/mL injection Use as directed in insulinpump (approx 50 units/day)FLUoxetine (PROZAC) 20 mg capsule Take 1 capsule by mouth once daily.enalapril (VASOTEC) 20 mg tablet Take 0.5 tablets by mouth once daily.simvastatin (ZOCOR) 20 mg tablet Take 1 tablet by mouth daily at bedtime.Take one(1) tablet daily at suppertimeblood sugar diagnostic (ONETOUCH ULTRA TEST) test strip testing bloodsugars six times daily Dx: 250.53, 041.9 272.4Cholecalciferol, Vitamin D3, 5,000 unit tab Take 1 tablet by mouth oncedaily.Lancets (ONE TOUCH ULTRASOFT LANCETS) lancets Test glucose 6x/day. 250.63. Insulin use: Yes, pumpMULTIVITAMIN TAB Take one(1) tablet daily.No current facility-administered medications for this visit.Allergies As of Date: 05/26/2017Allergen Noted ReactionVICODIN [HYDROCODONE-ACETAMINOPHE*1 VomitingFully Assessed 10/03/2016REVIEW OF SYSTEMSAbdomen: No bloating, early satiety, indigestion, or increased flatulence.No abdominal pain, nausea, vomiting, diarrhea, or constipation.Bladder: No dysuria, gross hematuria, urinary frequency, urinary urgency,or incontinence.Breast: No breast lumps, nipple d/c, overlying skin changes, redness orskin retraction.Expanded ROS: GENERAL: No weight loss, malaise or feversAllergies and current medication updated:YesEXAM: There were no vitals taken for this visit.GENERAL: pleasant, female in no apparent distressCHEST: Normal inspiratory effortABDOMEN: soft, non-tender and no massesPELVIC: external genitalia normal, normal Bartholin's glands, urethra,[place]'s glands, no vulvar lesions, no cervical lesions, normal appearingperineal body and perianal regionBIMANUAL: uterus AND adnexa not well palpated d/t patient's mild discomfortwith examNEURO: alert and oriented x3,exam grossly non-focalEXTREMITIES: normalASSESSMENT AND PLAN:51yo female with LLQ painCheck pelvic USAdvised on tylenol AND ibuprofen for painLenore Null MD Normal [facility] Bacteria identified Cx Nom ( Wound) Wound Culture Staphylococcus aureus [facility] Work Phone: Gram stain for investigation of transfusion reaction Microscopic observation Gram stain Nom (Unsp spec) [facility] Work Phone: Vital Signs Date Time Vital Sign Value Performing Clinician Facility 01-18-2025 14:03-0400 Body temperature 97.16 [degF] TAY BUTLER MD [facility] 01-18-2025 14:03-0400 Diastolic Blood Pressure Non-Invasive 83 mm[Hg] TAY BUTLER MD [facility] 01-18-2025 14:03-0400 Heart rate 84 /min TAY BUTLER MD [facility] 01-18-2025 14:03-0400 Systolic Blood Pressure Non-Invasive 139 mm[Hg] TAY BUTLER MD [facility] 11-15-2024 07:51-0400 Body height 162.[address] Laura Steele MD Work Phone: [facility] 11-15-2024 07:51-0400 Body mass index (BMI) [Ratio] 35.7 kg/m2 Dr. Laura Steele MD Work Phone: [facility] 11-15-2024 07:51-0400 Body temperature 97.1 [degF] Dr. Laura Steele MD Work Phone: [facility] 11-15-2024 07:51-0400 Body weight 94.[address] Laura Steele MD Work Phone: [facility] 11-15-2024 07:51-0400 Diastolic blood pressure 78 mm[Hg] Dr. Laura Steele MD Work Phone: [facility] 11-15-2024 07:51-0400 Heart rate 82 /min Dr. Laura Steele MD Work Phone: [facility] 11-15-2024 07:51-0400 Respiratory rate 16 /min Dr. Laura Steele MD Work Phone: [facility] 11-15-2024 07:51-0400 SaO2% (BldA) [Mass fraction] 98 % Dr. Laura Steele MD Work Phone: [facility] 11-15-2024 07:51-0400 Systolic blood pressure 122 mm[Hg] Dr. Laura Steele MD Work Phone: [facility] 08-09-2024 13:59-0400 Body mass index (BMI) [Ratio] 35.9 kg/m2 Dr. Laura Steele MD Work Phone: [facility] 08-09-2024 13:59-0400 Body temperature 96.4 [degF] Dr. Laura Steele MD Work Phone: [facility] 08-09-2024 13:59-0400 Body weight 94.[address] Laura Steele MD Work Phone: [facility] 08-09-2024 13:59-0400 Diastolic blood pressure 62 mm[Hg] Dr. Laura Steele MD Work Phone: [facility] 08-09-2024 13:59-0400 Heart rate 93 /min Dr. Laura Steele MD Work Phone: [facility] 08-09-2024 13:59-0400 Respiratory rate 16 /min Dr. Laura Steele MD Work Phone: [facility] 08-09-2024 13:59-0400 SaO2% (BldA) [Mass fraction] 95 % Dr. Laura Steele MD Work Phone: [facility] 08-09-2024 13:59-0400 Systolic blood pressure 108 mm[Hg] Dr. Laura Steele MD Work Phone: [facility] 08-05-2024 12:15-0400 Body temperature 97.5 [degF] Dr. Laura Steele MD Work Phone: [facility] 08-05-2024 12:15-0400 Diastolic blood pressure 83 mm[Hg] Dr. Laura Steele MD Work Phone: [facility] 08-05-2024 12:15-0400 Heart rate 85 /min Dr. Laura Steele MD Work Phone: [facility] 08-05-2024 12:15-0400 Respiratory rate 16 /min Dr. Laura Steele MD Work Phone: [facility] 08-05-2024 12:15-0400 SaO2% (BldA) [Mass fraction] 97 % Dr. Laura Steele MD Work Phone: [facility] 08-05-2024 12:15-0400 Systolic blood pressure 135 mm[Hg] Dr. Laura Steele MD Work Phone: [facility] 08-05-2024 07:05-0400 Body mass index (BMI) [Ratio] 35.9 kg/m2 Dr. Laura Steele MD Work Phone: [facility] 08-05-2024 07:05-0400 Body weight [address] Laura Steele MD Work Phone: [facility] 07-25-2024 07:50-0400 Body height 162.[address] Laura Steele MD Work Phone: [facility] 07-25-2024 07:50-0400 Body mass index (BMI) [Ratio] 35.5 kg/m2 Dr. Laura Steele MD Work Phone: [facility] 07-25-2024 07:50-0400 Body weight [address] Laura Steele MD Work Phone: [facility] 07-25-2024 07:50-0400 Diastolic blood pressure 68 mm[Hg] Dr. Laura Steele MD Work Phone: [facility] 07-25-2024 07:50-0400 Heart rate 86 /min Dr. Laura Steele MD Work Phone: [facility] 07-25-2024 07:50-0400 SaO2% (BldA) [Mass fraction] 96 % Dr. Laura Steele MD Work Phone: [facility] 07-25-2024 07:50-0400 Systolic blood pressure 118 mm[Hg] Dr. Laura Steele MD Work Phone: [facility] 07-03-2024 16:43-0400 Body mass index (BMI) [Ratio] 35.9 kg/m2 Dr. Laura Steele MD Work Phone: [facility] 07-03-2024 16:43-0400 Body temperature 97.3 [degF] Dr. Laura Steele MD Work Phone: [facility] 07-03-2024 16:43-0400 Body weight 94.[address] Laura Steele MD Work Phone: [facility] 07-03-2024 16:43-0400 Diastolic blood pressure 68 mm[Hg] Dr. Laura Steele MD Work Phone: [facility] 07-03-2024 16:43-0400 Heart rate 84 /min Dr. Laura Steele MD Work Phone: [facility] 07-03-2024 16:43-0400 Respiratory rate 16 /min Dr. Laura Steele MD Work Phone: [facility] 07-03-2024 16:43-0400 SaO2% (BldA) [Mass fraction] 94 % Dr. Laura Steele MD Work Phone: [facility] 07-03-2024 16:43-0400 Systolic blood pressure 118 mm[Hg] Dr. Laura Steele MD Work Phone: [facility] 06-21-2023 11:25-0400 Body temperature 97.7 [degF] Dr. Laura Steele Work Phone: [facility] 06-21-2023 11:25-0400 Diastolic blood pressure 55 mm[Hg] Dr. Laura Steele Work Phone: [facility] 06-21-2023 11:25-0400 Heart rate 77 /min Dr. Laura Steele Work Phone: [facility] 06-21-2023 11:25-0400 Respiratory rate 16 /min Dr. Laura Steele Work Phone: [facility] 06-21-2023 11:25-0400 SaO2% (BldA) [Mass fraction] 99 % Dr. Laura Steele Work Phone: [facility] 06-21-2023 11:25-0400 Systolic blood pressure 118 mm[Hg] Dr. Laura Steele Work Phone: [facility] 06-21-2023 10:57-0400 Inhaled oxygen flow rate 4 L/min Dr. Laura Steele Work Phone: [facility] 06-21-2023 06:28-0400 Body height 157.[address] Laura Steele Work Phone: [facility] 06-21-2023 06:28-0400 Body mass index (BMI) [Ratio] 36.8 kg/m2 Dr. Laura Steele Work Phone: [facility] 06-21-2023 06:28-0400 Body weight 91.[address] Laura Steele Work Phone: [facility] 06-14-2023 08:48-0500 Body height 157.[address] Laura Steele Work Phone: [facility] 06-14-2023 08:48-0500 Body temperature 97.2 [degF] Dr. Laura Steele Work Phone: [facility] 06-14-2023 08:48-0500 Diastolic blood pressure 64 mm[Hg] Dr. Laura Steele Work Phone: [facility] 06-14-2023 08:48-0500 Heart rate 87 /min Dr. Laura Steele Work Phone: [facility] 06-14-2023 08:48-0500 Respiratory rate 16 /min Dr. Laura Steele Work Phone: [facility] 06-14-2023 08:48-0500 SaO2% (BldA) [Mass fraction] 98 % Dr. Laura Steele Work Phone: [facility] 06-14-2023 08:48-0500 Systolic blood pressure 120 mm[Hg] Dr. Laura Steele Work Phone: [facility] 05-25-2023 08:06-0500 Body temperature 97.8 [degF] Dr. Laura Steele Work Phone: [facility] 05-25-2023 08:06-0500 Diastolic blood pressure 72 mm[Hg] Dr. Laura Steele Work Phone: [facility] 05-25-2023 08:06-0500 Heart rate 88 /min Dr. Laura Steele Work Phone: [facility] 05-25-2023 08:06-0500 Respiratory rate 14 /min Dr. Laura Steele Work Phone: [facility] 05-25-2023 08:06-0500 SaO2% (BldA) [Mass fraction] 98 % Dr. Laura Steele Work Phone: [facility] 05-25-2023 08:06-0500 Systolic blood pressure 126 mm[Hg] Dr. Laura Steele Work Phone: [facility] 05-16-2023 08:18-0500 Body height 157.[address] Laura Steele Work Phone: [facility] 05-16-2023 08:18-0500 Body mass index (BMI) [Ratio] 37.5 kg/m2 Dr. Laura Steele Work Phone: [facility] 05-16-2023 08:18-0500 Body temperature 98.9 [degF] Dr. Laura Steele Work Phone: [facility] 05-16-2023 08:18-0500 Body weight 92.[address] Laura Steele Work Phone: [facility] 05-16-2023 08:18-0500 Diastolic blood pressure 74 mm[Hg] Dr. Laura Steele Work Phone: [facility] 05-16-2023 08:18-0500 Heart rate 74 /min Dr. Laura Steele Work Phone: [facility] 05-16-2023 08:18-0500 Respiratory rate 16 /min Dr. Laura Steele Work Phone: [facility] 05-16-2023 08:18-0500 SaO2% (BldA) [Mass fraction] 98 % Dr. Laura Steele Work Phone: [facility] 05-16-2023 08:18-0500 Systolic blood pressure 130 mm[Hg] Dr. Laura Steele Work Phone: [facility] 04-13-2023 17:51-0500 Body temperature 98.4 [degF] Dr. Laura Steele Work Phone: [facility] 04-13-2023 17:51-0500 Diastolic blood pressure 82 mm[Hg] Dr. Laura Steele Work Phone: [facility] 04-13-2023 17:51-0500 Heart rate 97 /min Dr. Laura Steele Work Phone: [facility] 04-13-2023 17:51-0500 Respiratory rate 16 /min Dr. Laura Steele Work Phone: [facility] 04-13-2023 17:51-0500 SaO2% (BldA) [Mass fraction] 97 % Dr. Laura Steele Work Phone: [facility] 04-13-2023 17:51-0500 Systolic blood pressure 118 mm[Hg] Dr. Laura Steele Work Phone: [facility] 04-05-2023 09:23-0500 Body mass index (BMI) [Ratio] 35.6 kg/m2 Dr. Laura Steele Work Phone: [facility] 04-05-2023 09:23-0500 Body temperature 96.5 [degF] Dr. Laura Steele Work Phone: [facility] 04-05-2023 09:23-0500 Diastolic blood pressure 42 mm[Hg] Dr. Laura Steele Work Phone: [facility] 04-05-2023 09:23-0500 Heart rate 91 /min Dr. Laura Steele Work Phone: [facility] 04-05-2023 09:23-0500 Respiratory rate 18 /min Dr. Laura Steele Work Phone: [facility] 04-05-2023 09:23-0500 Systolic blood pressure 115 mm[Hg] Dr. Laura Steele Work Phone: [facility] 03-15-2023 09:28-0500 Body mass index (BMI) [Ratio] 35.6 kg/m2 Dr. Laura Steele Work Phone: [facility] 03-15-2023 09:28-0500 Body temperature 96.5 [degF] Dr. Laura Steele Work Phone: [facility] 03-15-2023 09:28-0500 Diastolic blood pressure 56 mm[Hg] Dr. Laura Steele Work Phone: [facility] 03-15-2023 09:28-0500 Heart rate 89 /min Dr. Laura Steele Work Phone: [facility] 03-15-2023 09:28-0500 Respiratory rate 18 /min Dr. Laura Steele Work Phone: [facility] 03-15-2023 09:28-0500 Systolic blood pressure 137 mm[Hg] Dr. Laura Steele Work Phone: [facility] 03-13-2023 08:17-0500 Body height 157.[address] Laura Steele Work Phone: [facility] 03-13-2023 08:17-0500 Body mass index (BMI) [Ratio] 36.6 kg/m2 Dr. Laura Steele Work Phone: [facility] 03-13-2023 08:17-0500 Body temperature 96.1 [degF] Dr. Laura Steele Work Phone: [facility] 03-13-2023 08:17-0500 Body weight 90.[address] Laura Steele Work Phone: [facility] 03-13-2023 08:17-0500 Diastolic blood pressure 70 mm[Hg] Dr. Laura Steele Work Phone: [facility] 03-13-2023 08:17-0500 Heart rate 91 /min Dr. Laura Steele Work Phone: [facility] 03-13-2023 08:17-0500 Respiratory rate 16 /min Dr. Laura Steele Work Phone: [facility] 03-13-2023 08:17-0500 SaO2% (BldA) [Mass fraction] 98 % Dr. Laura Steele Work Phone: [facility] 03-13-2023 08:17-0500 Systolic blood pressure 130 mm[Hg] Dr. Laura Steele Work Phone: [facility] 03-10-2023 00:51-0500 Body weight 88.[address] Laura Steele Work Phone: [facility] 03-08-2023 09:16-0500 Body mass index (BMI) [Ratio] 35.6 kg/m2 Dr. Laura Steele Work Phone: [facility] 03-08-2023 09:16-0500 Body temperature 97.2 [degF] Dr. Laura Steele Work Phone: [facility] 03-08-2023 09:16-0500 Diastolic blood pressure 83 mm[Hg] Dr. Laura Steele Work Phone: [facility] 03-08-2023 09:16-0500 Heart rate 91 /min Dr. Laura Steele Work Phone: [facility] 03-08-2023 09:16-0500 Respiratory rate 18 /min Dr. Laura Steele Work Phone: [facility] 03-08-2023 09:16-0500 Systolic blood pressure 133 mm[Hg] Dr. Laura Steele Work Phone: [facility] 03-01-2023 14:10-0500 Body weight 88.[address] Laura Steele Work Phone: [facility] 11-21-2022 09:31-0400 Body height 162.56 cm MD Laura Steele [facility] 11-21-2022 09:31-0400 Body mass index (BMI) [Ratio] 34.1 kg/m2 herlinda Steele [facility] 11-21-2022 09:31-0400 Body temperature 97.5 [degF] herlinda Steele [facility] 11-21-2022 09:31-0400 Body weight 90.26 kg [facility] 11-21-2022 09:31-0400 Diastolic blood pressure 64 mm[Hg] herlinda Steele [facility] 11-21-2022 09:31-0400 Heart rate 82 /min herlinda Steele [facility] 11-21-2022 09:31-0400 Respiratory rate 16 /min herlinda Steele [facility] 11-21-2022 09:31-0400 SaO2% (BldA) [Mass fraction] 98 % [facility] 11-21-2022 09:31-0400 Systolic blood pressure 110 mm[Hg] herlinda Steele [facility] 11-15-2022 08:06-0400 Body height 162.56 cm [facility] 11-15-2022 08:06-0400 Body mass index (BMI) [Ratio] 34.2 kg/m2 herlinda Steele [facility] 11-15-2022 08:06-0400 Body temperature 98 [degF] MD Laura Blandfortunato [facility] 11-15-2022 08:06-0400 Body weight 90.32 kg herlinda Steele [facility] 11-15-2022 08:06-0400 Diastolic blood pressure 68 mm[Hg] MD Laura Blandfortunato [facility] 11-15-2022 08:06-0400 Heart rate 70 /min [facility] 11-15-2022 08:06-0400 Respiratory rate 16 /min [facility] 11-15-2022 08:06-0400 SaO2% (BldA) [Mass fraction] 97 % [facility] 11-15-2022 08:06-0400 Systolic blood pressure 108 mm[Hg] herlinda Blandfortunato [facility] 09-30-2022 11:15-0400 Body temperature 99.6 [degF] [facility] 09-30-2022 11:15-0400 Diastolic blood pressure 50 mm[Hg] herlinda Blandfortunato [facility] 09-30-2022 11:15-0400 Heart rate 86 /min [facility] 09-30-2022 11:15-0400 Respiratory rate 18 /min herlinda Blandfortunato [facility] 09-30-2022 11:15-0400 SaO2% (BldA) [Mass fraction] 97 % [facility] 09-30-2022 11:15-0400 Systolic blood pressure 141 mm[Hg] [facility] 09-30-2022 05:17-0400 Inhaled oxygen flow rate 2 L/min [facility] 09-28-2022 23:56-0400 Body height 152.4 cm herlinda Steele [facility] 09-28-2022 23:56-0400 Body mass index (BMI) [Ratio] 41.1 kg/m2 herlinda Steele [facility] 09-28-2022 23:56-0400 Body weight 95.6 kg herlinda Steele [facility] 09-28-2022 21:37-0400 Body height 162.56 cm herlinda Steele [facility] 09-28-2022 21:37-0400 Body mass index (BMI) [Ratio] 34.2 kg/m2 herlinda Steele [facility] 09-28-2022 21:37-0400 Body temperature 98 [degF] [facility] 09-28-2022 21:37-0400 Body weight 90.6 kg [facility] 09-28-2022 21:37-0400 Diastolic blood pressure 72 mm[Hg] herlinda Steele [facility] 09-28-2022 21:37-0400 Heart rate 81 /min [facility] 09-28-2022 21:37-0400 Respiratory rate 18 /min [facility] 09-28-2022 21:37-0400 SaO2% (BldA) [Mass fraction] 98 % [facility] 09-28-2022 21:37-0400 Systolic blood pressure 146 mm[Hg] herlinda Steele [facility] 08-18-2022 15:44-0400 Body mass index (BMI) [Ratio] 34.1 kg/m2 herlinda Steele [facility] 08-18-2022 15:44-0400 Body temperature 98.7 [degF] herlinda Steele [facility] 08-18-2022 15:44-0400 Body weight 90.26 kg [facility] 08-18-2022 15:44-0400 Diastolic blood pressure 62 mm[Hg] [facility] 08-18-2022 15:44-0400 Heart rate 88 /min [facility] 08-18-2022 15:44-0400 Respiratory rate 14 /min [facility] 08-18-2022 15:44-0400 SaO2% (BldA) [Mass fraction] 97 % [facility] 08-18-2022 15:44-0400 Systolic blood pressure 112 mm[Hg] [facility] 07-20-2022 08:51-0400 Body mass index (BMI) [Ratio] 34.8 kg/m2 [facility] 07-20-2022 08:51-0400 Body temperature 98.2 [degF] [facility] 07-20-2022 08:51-0400 Body weight 92.07 kg [facility] 07-20-2022 08:51-0400 Diastolic blood pressure 71 mm[Hg] [facility] 07-20-2022 08:51-0400 Heart rate 73 /min [facility] 07-20-2022 08:51-0400 Respiratory rate 18 /min [facility] 07-20-2022 08:51-0400 SaO2% (BldA) [Mass fraction] 95 % [facility] 07-20-2022 08:51-0400 Systolic blood pressure 108 mm[Hg] [facility] 02-09-2022 09:13-0400 Body height 162.56 cm MD Laura Steele [facility] 02-09-2022 09:13-0400 Body mass index (BMI) [Ratio] 35 kg/m2 [facility] 02-09-2022 09:13-0400 Body temperature 97.3 [degF] Jerryherlinda Blandfortunato [facility] 02-09-2022 09:13-0400 Body weight 92.53 kg MD Laura Reyeztaina [facility] 02-09-2022 09:13-0400 Diastolic blood pressure 62 mm[Hg] [facility] 02-09-2022 09:13-0400 Heart rate 86 /min MD Laura Reyezmikafortunato [facility] 02-09-2022 09:13-0400 Respiratory rate 16 /min [facility] 02-09-2022 09:13-0400 SaO2% (BldA) [Mass fraction] 96 % [facility] 02-09-2022 09:13-0400 Systolic blood pressure 82 mm[Hg] herlinda [facility] 01-26-2022 08:10-0400 Body mass index (BMI) [Ratio] 35.2 kg/m2 [facility] 01-26-2022 08:10-0400 Body temperature 96.1 [degF] [facility] 01-26-2022 08:10-0400 Body weight 93.21 kg [facility] 01-26-2022 08:10-0400 Diastolic blood pressure 53 mm[Hg] [facility] 01-26-2022 08:10-0400 Heart rate 79 /min [facility] 01-26-2022 08:10-0400 Respiratory rate 18 /min MD [facility] 01-26-2022 08:10-0400 SaO2% (BldA) [Mass fraction] 95 % [facility] 01-26-2022 08:10-0400 Systolic blood pressure 76 mm[Hg] [facility] 11-30-2021 13:02-0400 Body height 162.56 cm MD Laura Steele [facility] Work Phone: 11-30-2021 13:02-0400 Body mass index (BMI) [Ratio] 34.7 kg/m2 Jerryherlinda [facility] Work Phone: 11-30-2021 13:02-0400 Body temperature 98.3 [degF] MD Laura Steele [facility] Work Phone: 11-30-2021 13:02-0400 Body weight 91.62 kg MD Laura Reyeztaina [facility] Work Phone: 11-30-2021 13:02-0400 Diastolic blood pressure 64 mm[Hg] [facility] Work Phone: 11-30-2021 13:02-0400 Heart rate 90 /min Jerryherlinda [facility] Work Phone: 11-30-2021 13:02-0400 Respiratory rate 14 /min MD Laura Steele [facility] Work Phone: 11-30-2021 13:02-0400 SaO2% (BldA) [Mass fraction] 98 % herlinda [facility] Work Phone: 11-30-2021 13:02-0400 Systolic blood pressure 110 mm[Hg] MD [facility] Work Phone: 11-23-2021 23:27-0400 Diastolic blood pressure 59 mm[Hg] Jerryherlinda [facility] Work Phone: 11-23-2021 23:27-0400 Heart rate 89 /min MD Laura Steele [facility] Work Phone: 11-23-2021 23:27-0400 Respiratory rate 17 /min MD Laura Blandfortunato [facility] Work Phone: 11-23-2021 23:27-0400 SaO2% (BldA) [Mass fraction] 100 % Anujruth DerejeL[facility]Health [facility] Work Phone: 11-23-2021 23:27-0400 Systolic blood pressure 125 mm[Hg] lesliruth [facility] Work Phone: 11-23-2021 20:37-0400 Body mass index (BMI) [Ratio] 34.3 kg/m2 [facility] Work Phone: 11-23-2021 20:37-0400 Body temperature 98.8 [degF] MD Laura Blandfortunato [facility] Work Phone: 11-23-2021 20:37-0400 Body weight 90.71 kg lesliruth [facility] Work Phone: 08-31-2021 14:06-0400 Body mass index (BMI) [Ratio] 34.4 kg/m2 lesliruth [facility]rejeL[facility]Health [facility] Work Phone: 08-31-2021 14:06-0400 Body temperature 96.9 [degF] Anujruth Reyeztaina [facility] Work Phone: 08-31-2021 14:06-0400 Body weight 90.94 kg Anujruth [facility] Work Phone: 08-31-2021 14:06-0400 Diastolic blood pressure 72 mm[Hg] Luisserge [facility]zL[facility] Work Phone: 08-31-2021 14:06-0400 Heart rate 90 /min herlinda Reyeztaina [facility] Work Phone: 08-31-2021 14:06-0400 Respiratory rate 16 /min MD Efewongbe [facility] Work Phone: 08-31-2021 14:06-0400 SaO2% (BldA) [Mass fraction] 97 % lesliruth [facility] Work Phone: 08-31-2021 14:06-0400 Systolic blood pressure 114 mm[Hg] lesliruth [facility] Work Phone: 08-31-2021 14:06-0400 Body mass index (BMI) [Ratio] 34.4 kg/m2 [facility] Work Phone: 08-31-2021 14:06-0400 Body temperature 96.9 [degF] [facility] Work Phone: 08-31-2021 14:06-0400 Body weight 90.94 kg [facility] Work Phone: 08-31-2021 14:06-0400 Diastolic blood pressure 72 mm[Hg] [facility] Work Phone: 08-31-2021 14:06-0400 Heart rate 90 /min [facility] Work Phone: 08-31-2021 14:06-0400 Respiratory rate 16 /min [facility] Work Phone: 08-31-2021 14:06-0400 SaO2% (BldA) [Mass fraction] 97 % stacieouzinkieruth [facility] Work Phone: 08-31-2021 14:06-0400 Systolic blood pressure 114 mm[Hg] lesliruth [facility] Work Phone: 08-17-2021 11:38-0400 Body mass index (BMI) [Ratio] 33.6 kg/m2 stacieouzinkieruth [facility] Work Phone: 08-17-2021 11:38-0400 Body weight 88.9 kg Jerrystaciesusannahruth Reyeztaina [facility] Work Phone: 08-17-2021 11:38-0400 Diastolic blood pressure 76 mm[Hg] lesliruth [facility] Work Phone: 08-17-2021 11:38-0400 Systolic blood pressure 124 mm[Hg] stacieserge [facility] Work Phone: 08-17-2021 11:38-0400 Body height 162.56 cm Jerrystaciesusannahruth Reyeztaina [facility] Work Phone: 08-17-2021 11:38-0400 Body mass index (BMI) [Ratio] 33.6 kg/m2 [facility] Work Phone: 08-17-2021 11:38-0400 Body weight 88.9 kg Anujruth Reyeztaina [facility] Work Phone: 08-17-2021 11:38-0400 Diastolic blood pressure 76 mm[Hg] Laura [facility] Work Phone: 08-17-2021 11:38-0400 Systolic blood pressure 124 mm[Hg] [facility] Work Phone: Encounters Encounter Date Encounter Type Care Provider Facility Start: 01-18-2025 End: 01-18-2025 Emergency department patient visit [facility] [facility] Start: 12-20-2024 ambulatory Laura Roblero ty:[facility] Start: 12-13-2024 End: 12-13-[address] Laura Steele MD Work Phone: -Outpatient Breast Imaging Start: 12-13-2024 End: 12-13-[address] Laura Steele MD -Outpatient Breast Imaging Work Phone: Start: 12-13-2024 End: 12-13-2024 ambulatory [facility] Facility:[facility] Start: 11-15-2024 Encounter for genera l adult medical examination without abnormal findings [facility] Start: 11-15-2024 End: 11-15-[address] Laura Steele MD -[facility] Work Phone: Start: 11-15-2024 End: 11-15-[address] Laura Steele MD [facility] Start: 11-15-2024 End: 11-15-[address] Laura Steele MD Work Phone: -[facility] Start: 08-09-2024 End: 08-09-[address] Laura Steele MD -[facility] Work Phone: Start: 08-09-2024 End: 08-09-2024 ambulatory [facility] Facility:[facility] Start: 08-05-2024 End: 08-05-2024 Emergency department patient visit Dr. Papa Smith DO -Emergency Department Work Phone: Start: 07-25-2024 End: 07-25-[address] Ravi Diallo MD -[facility] Work Phone: Start: 07-25-2024 End: 07-25-[address] Laura Steele MD Work Phone: [facility] Work Phone: Start: 07-25-2024 End: 07-25-2024 ambulatory Ravi Diallo Facility:[facility] Start: 07-03-2024 End: 07-03-[address] Laura Steele MD -[facility] Work Phone: Start: 07-03-2024 End: 07-03-2024 ambulatory Anujruth Ivette Facility:[facility] Start: 02-06-2024 End: 02-06-2024 Emergency department [facility] Facility:[facility] Start: 01-25-2024 End: 01-25-2024 ambulatory Jerrystacieserge Reyezmikafortunato Facility:[facility] Start: 06-21-2023 End: 06-21-2023 Admission to same day surgery center Dr. Laura Steele Work Phone: [facility] Start: 06-21-2023 End: 06-21-[address] Laura Steele Work Phone: [facility] Work Phone: Start: 06-14-2023 End: 06-14-[address] Laura Steele Work Phone: [facility] Work Phone: Start: 06-14-2023 End: 06-14-[address] Laura Steele Work Phone: [facility] Internal [facility] Work Phone: Start: 05-25-2023 End: 05-25-[address] Laura Steele Work Phone: [facility] Work Phone: Start: 05-25-[address] Anuj Steele Work Phone: [facility] Start: 05-25-2023 End: 05-25-2023 Encounter for other preprocedural examination Dr. Laura Steele Work Phone: [facility] Start: 05-25-2023 End: 05-25-[address] Laura Steele Work Phone: [facility] Internal Medicine Work Phone: Start: 05-23-2023 End: 05-23-[address] Laura Steele Work Phone: [facility] Work Phone: Start: 05-23-2023 End: 05-23-[address] [facility] Work [facility]: Start: 05-16-2023 End: 05-16-[address] Laura Steele Work Phone: [facility] Endocrinology Work Phone: Start: 04-14-2023 End: 04-14-[address] Laura Steele Work Phone: [facility] Work Phone: Start: 04-14-2023 End: 04-14-[address] [facility] Start: 04-13-[address] Fortunato Steele Work Phone: [facility] Start: 04-13-2023 End: 04-13-2023 Emergency department patient visit Dr. Laura Steele Work Phone: [facility] Start: 04-13-2023 End: 04-13-[address] Laura Steele Work Phone: [facility] Internal Medicine Work Phone: Start: 04-05-2023 End: 04-09-[address] Laura Steele Work Phone: [facility] Work Phone: Start: 03-15-[address] Viridiana Steele Work Phone: [facility] Work Phone: Start: 03-13-2023 End: 03-13-[address] Laura Steele Work Phone: [facility] Work Phone: Start: 03-13-2023 End: 03-13-[address] Laura Steele Work Phone: [facility] [facility] Work Phone: Start: 03-08-2023 End: 03-09-[address] [facility] Work Phone: Start: 12-13-2022 End: 12-13-[address] Laura Steele Work Phone: [facility] Work Phone: Start: 12-13-2022 End: 12-13-[address] Laura Steele Work Phone: [facility]-Laboratory, Spec[facility] Work Phone: Start: 11-21-2022 Patient encounter status MD Jerry VIDES [facility] Start: 11-21-2022 End: 11-21-2022 ambulatory MD Laura VIDES [facility] Work Phone: Start: 11-21-2022 End: 11-21-2022 Encounter for general adult medical examination without abnormal findings MD Laura VIDES [facility] Start: 11-21-2022 End: 11-21-2022 Patient encounter procedure MD Laura VIDES [facility] Internal Medicine Work Phone: Start: 11-15-2022 End: 11-15-2022 Patient encounter procedure MD Laura VIDES [facility] Endocrinology Work Phone: Start: 11-09-2022 End: 11-09-2022 ambulatory MD Laura VIDES [facility] Work Phone: Start: 11-09-2022 End: 11-09-2022 Patient encounter procedure MD Laura VIDES [facility]-Labor[facility] Work Phone: Start: 10-18-2022 End: 10-18-2022 ambulatory MD Laura VIDES [facility] Work Phone: Start: 10-18-2022 End: 10-18-2022 Patient encounter procedure MD Laura VIDES [facility]-Ultrasound, [facility] Work Phone: Start: 10-14-2022 End: 10-14-2022 Patient encounter procedure MD Laura VIDES [facility] Work Phone: Start: 09-30-2022 Non-patient / Non-visit MD Mina VIDES [facility] Start: 09-29-2022 Non-patient / Non-visit MD Mina VIDES [facility] Inpatient Physicians Start: 09-28-2022 End: 09-30-2022 Evaluation and management of inpatient MD Laura Steele [facility]-Medical Surgical 3 Start: 09-28-2022 Non-patient / Non-visit MD Mina VIDES [facility] Start: 09-28-2022 Admission to [facility] MD Laura VIDES [facility] Start: 09-28-2022 ambulatory MD Laura castano [facility] Work Phone: Start: 08-18-2022 End: 08-18-2022 Patient encounter procedure MD Laura VIDES [facility] Internal Medicine Start: 07-20-2022 End: 07-20-2022 Patient encounter procedure MD Laura VIDES [facility] Endocrinology Start: 04-26-2022 End: 04-26-2022 ambulatory MD Laura Steele [facility] Work Phone: Start: 04-26-2022 End: 04-26-2022 [facility] Start: 02-09-2022 End: 02-09-2022 Patient encounter procedure herlinda [facility] Internal Medicine Start: 01-26-2022 End: 01-26-2022 Patient encounter procedure herlinda [facility] Endocrinology Start: 11-30-2021 End: 11-30-20[address] [facility] Work Phone: Start: 11-30-2021 End: 11-30-2021 [facility]/Neurology Start: 11-30-2021 End: 11-30-2021 [facility] Internal [facility] Start: 11-23-2021 End: 11-23-2021 Emergency department [facility] Start: 11-15-2021 End: 11-15-2021 [facility] Start: 09-30-2021 End: 09-30-2021 [facility] encounter [facility], Specimen Start: 09-13-2021 End: 09-13-2021 Patient [address] [facility]-Outpatient Breast Imaging Start: 08-31-2021 End: 08-31-2021 Patient encounter procedure herlinda [facility] Internal Medicine Start: 08-17-2021 End: 08-17-2021 Patient encounter procedure [facility] Endocrinology Start: 08-10-2021 End: 08-10-2021 Patient [address]linda [facility]-Labor[facility], Specimen Start: 05-20-2021 End: 05-20-2021 Patient encounter procedure herlinda [facility] Start: 11-07-2017 End: 11-08-2017 Patient encounter PENNY SALOMON [facility] Start: 09-21-2017 End: 09-21-2017 Patient encounter PENNY SALOMON [facility] Start: 05-29-2017 End: 05-29-2017 Patient encounter LENORE NULL [facility] Start: 05-26-2017 End: 05-30-2017 Patient encounter LENORE NULL [facility] Procedures Date Procedure Procedure Detail Performing Clinician Start: 12-13-2024 Plain x-ray of pelvi s and lower extremity Dr. Laura Steele MD Work Phone: Start: 12-13-2024 End: 12-13-2024 X-ray of knee, four or more views Dr. Laura Steele MD Work Phone: Start: 12-13-2024 Screening mammography Zachary Steele MD Work Phone: Start: 08-05-2024 D-dimer assay, quantitative Dr. Laura Steele MD Work Phone: Comment on above: D-Dimer ELEVATED (>0 .49): Additional studies and clinicalassessments are indicated to conclude diagnosis of:Deep Vein Thrombosis (DVT) or Pulmonary Embolism (PE) Start: 08-05-[address] Laura Steele MD Work Phone: Start: 08-05-2024 Plain chest X-ray Dr. Fortunato Steele MD Work Phone: Start: 07-25-2024 Urine microalbumin/c reatinine ratio measurement Dr. Laura Steele MD Work Phone: Comment on above: Previous reported re sult: 100.7 mg/g CREEdited by: THAO on 09/26/24:1437 AMENDED REPORT 09/26/24 1437 MALB:CREAT previously reported as: 100.7 mg/g CRE Start: 06-21-2023 Fluoroscopic guidance Zachary Steele Work Phone: Start: 06-21-[address] Garry Steele Work Phone: Start: 05-23-[address] Laura Steele Work Phone: Start: 05-23-2023 Investigation of tra nsfusion reaction Dr. Laura Steele Work Phone: Start: 05-23-2023 Microbial culture, routine Dr. Laura Steele Work Phone: Start: 03-01-2023 X-ray of both feet Dr. Laura Steele Work Phone: Start: 03-01-[address] Laura Steele Work Phone: Start: 03-01-2023 Investigation of tra nsfusion reaction Dr. Laura Steele Work Phone: Start: 03-01-2023 Microbial culture, routine Dr. Laura Steele Work Phone: Start: 03-01-[address] Jerry Steele Work Phone: Start: 12-13-[address] Laura Steele Work Phone: Start: 12-13-2022 Investigation of tra nsfusion reaction Dr. Laura Steele Work Phone: Start: 12-13-2022 Microbial culture, routine Dr. Laura Steele Work Phone: Start: 10-18-2022 US scan of gallbladder MD Laura VIDES Start: 09-28-2022 Laparoscopic appendectomy MD Laura VIDES Start: 09-28-2022 Computed tomography of abdomen and pelvis with intravenous contrast MD Laura VIDES Start: 11-30-2021 Plain chest X-ray MD Jerry Steele Start: 09-13-2021 Screening mammography Angel Steele Start: 08-10-2021 Investigation of tra nsfusion reaction MD Laura Steele Start: 08-10-2021 Microbial culture, routine MD Laura Steele Amputation of toe TAY ASHWIN JULES MD Investigation of tra nsfusion reaction MD Laura Steele Investigation of tra nsfusion reaction MD Laura Steele Microbial culture, routine Angel Steele Microbial culture, routine Angel Steele Plan of Treatment Date Care Activity Detail Author Start: 08-05-2024 [facility] Start: 08-05-2024 [facility] Start: 06-21-2023 Fungal Culture Fungal Culture [facility] Start: 06-21-2023 Fungal Smear Fungal Smear [facility] Start: 06-21-2023 Patient discharge [facility] Start: 06-21-2023 Radiography of foot Foot 2 Views [facility] Start: 06-21-2023 XR Foot 2 Views [facility] Start: 05-25-2023 Nicotine measurement [facility] Start: 05-25-2023 Evaluation of diagnostic study results [facility] Start: 04-13-2023 Evaluation of diagnostic study results [facility] Start: 03-13-2023 Patient referral [facility] Work Phone: Start: 03-01-2023 [facility] Start: 09-30-2022 Patient discharge [facility] Start: 09-29-2022 Consultation [facility] Start: 09-29-2022 Oxygen therapy [facility] Start: 09-28-2022 End: 09-28-2022 Following clinical pathway protocol [facility] Start: 09-28-2022 Ambulation without limitation [facility] Start: 09-28-2022 Care regimes management [facility] Start: 09-28-2022 Notification of physician [facility] Start: 09-28-2022 Taking patient vital signs [facility] Start: 09-28-2022 [facility] Start: 09-28-2022 Admission procedure [facility] Start: 09-28-2022 Laparoscopic appendectomy Laparoscopic, Appendectomy (Not Applicable) [facility] Bacteria identified in Unspecified specimen by Anaerobe culture [facility] Bacteria identified in Unspecified specimen by Anaerobe culture [facility] CBC W Auto Different ial panel - Blood [facility] Comprehensive metabo lic 2000 panel - Serum or Plasma [facility] Cotinine measurement [facility] Fungus identified in Unspecified specimen by Culture [facility] Fungus identified in Unspecified specimen by Culture [facility] Fungus identified in Unspecified specimen by Culture [facility] Fungus identified in Unspecified specimen by Fungus stain [facility] Fungus identified in Unspecified specimen by Fungus stain [facility] Lipid 1995 panel - S alzarus or Plasma [facility] MG Breast - bilatera l Screening [facility] MG Breast - bilatera l Screening [facility] Microscopic observat ion [Identifier] in Unspecified specimen by Gram stain [facility] Microscopic observat ion [Identifier] in Unspecified specimen by Gram stain [facility] Nicotine [Mass/volum e] in Serum or Plasma [facility] Patient Education [facility] Work Phone: Patient referral [facility] Work Phone: Urine microalbumin/creatinine ratio measurement [facility] Wound microscopy, cu lture and sensitivities [facility] Wound microscopy, cu lture and sensitivities [facility] XR Knee 3 Views [facility] XR Pelvis and Hip Views [facility] Immunizations Immunization Date Immunization Notes Care Provider [facility] 01-18-2025 tetanus toxoid, redu godwin diphtheria toxoid, and acellular pertussis vaccine, adsorbed TAY BUTLER MD [facility] 02-09-2022 influenza, injectabl e, quadrivalent, preservative free Dr. Laura Steele Work Phone: [facility] 02-09-2022 influenza, seasonal, injectable MD Díaz [facility] 05-02-2021 Covid (Pfizer) MD Laura Steele [facility] 02-05-2021 Covid (Pfizer) MD Laura Steele [facility] 01-16-2021 Influenza virus vaccine [facility] 01-12-2021 Covid (Pfizer) MD Laura Ramos [facility] 01-08-2021 Covid (Pfizer) Dr. Laura Steele MD Work Phone: [facility] 05-04-2020 Covid (Pfizer) Dr. Laura Steele MD Work Phone: [facility] 04-13-2020 Covid (Pfizer) Dr. Laura Steele MD Work Phone: [facility] 01-20-2015 influenza, injectabl e, quadrivalent, preservative free Dr. Laura Steele MD Work Phone: [facility] 01-08-2015 Influenza virus vaccine [facility] Payers Date Payer Category Payer Self-pay [id number] 2023 Unknown [id number] 2018 Private Health Insurance [id number] 1965 Unknown [id number] 1965 Unknown [id number] Unknown [id number] Unknown [employer] [id number] Unknown [employer] [id number] Unknown [id number] 2.16.8 [id number] Unknown [id number] .16.8 [id number] Unknown [id number] 2.16.8 [id number] Unknown [id number] 2.16.8 [id number] Unknown [id number] 2.16.8 [id number] Unknown [id number] 2.16.8 [id number] Unknown [id number] 2.16.8 [id number] Unknown [id number] 2.16.8 [id number] Unknown [id number] 2.16.8 [id number] Unknown [id number] 2.16.8 [id number] Unknown [id number] 2.16.8 [id number] Social History Date Type Detail Facility Start: 08-17-2021 End: 06-14-2023 Tobacco smoking status WYIS Unknown if ever smoked [facility] Start: 01-12-2021 None [facility] Start: 01-12-2021 Non-smoker [facility] Start: 1965 Sex Assigned At Female W [facility] Start: 11-06-2018 End: 02-06-2024 Tobacco smoking status NHIS Never smoked tobacco (finding) [facility] Start: 08-18-2013 End: 07-30-2024 Sex Female (finding) [facility] Sexual Orientation [facility] Start: 01-18-2025 No, per patient [facility] NEGATED: Highlighted row [facility] Medical Equipment Procedure Code Equipment Code Equipment Origin al Text Equipment Identifier Dates Debridement, wound [id number] FDA S tart: 06-21-2023 Debridement, wound VIAFLOW, 1CC FDA Star t: 06-21-2023 Debridement, wound VIAFLOW, 1CC FDA Star t: 06-21-2023 Debridement, wound [id number] FDA S tart: 06-21-2023 Debridement, wound VIAFLOW, 1CC FDA Star t: 06-21-2023 Debridement, wound VIAFLOW, 1CC FDA Star t: 06-21-2023 Debridement, wound [id number] FDA S tart: 06-21-2023 Debridement, wound VIAFLOW, 1CC FDA Star t: 06-21-2023 Debridement, wound VIAFLOW, 1CC FDA Star t: 06-21-2023 Appendectomy, laparoscopic RELOAD,STD 45 [id number] FDA Start: 09-28-2022 Appendectomy, laparoscopic RELOAD,STD 45 [id number] FDA Start: 09-28-2022 Appendectomy, laparoscopic RELOAD,STD 45 [id number] FDA Start: 09-28-2022 Appendectomy, laparoscopic RELOAD,STD 45 [id number] FDA Start: 09-28-2022 Appendectomy, laparoscopic RELOAD,STD 45 [id number] FDA Start: 09-28-2022 Appendectomy, laparoscopic RELOAD,STD 45 6R45B FDA Start: 09-28-2022 Appendectomy, laparoscopic RELOAD,STD 45 6R45B FDA Start: 09-28-2022 Appendectomy, laparoscopic RELOAD,STD 45 6R45B FDA Start: 09-28-2022 Appendectomy, laparoscopic RELOAD,STD 45 [id number] FDA Start: 09-28-2022 Appendectomy, laparoscopic RELOAD,STD 45 6R45B FDA Start: 09-28-2022 Appendectomy, laparoscopic RELOAD,STD 45 6R45B FDA Start: 09-28-2022 Appendectomy, laparoscopic RELOAD,STD 45 6R45B FDA Start: 09-28-2022 Appendectomy, laparoscopic RELOAD,STD 45 6R45B FDA Start: 09-28-2022 Appendectomy, laparoscopic RELOAD,STD 45 6R45B FDA Start: 09-28-2022 Appendectomy, laparoscopic RELOAD,STD 45 [id number] FDA Start: 09-28-2022 Goals Date Patient Goal Desired Activity /State Functional Status Date Assessment Result Facility 01-18-2025 [facility] Status [facility] Leigha early [facility] 01-18-2025 Functional Status ID band on Leigha glodman [facility] 09-30-2022 Functional status Bedrest [facility] Work Phone: Mental Status Date Assessment Result Facility 01-18-2025 Mental Status Orientation Oriented x 4 [facility] 01-18-2025 [facility] 08-05-2024 Cognitive function Voice/Name [facility] Work Phone: 06-21-2023 Cognitive function Voice/Name [facility] Work Phone: 09-30-2022 Cognitive function Voice/Name [facility] Work Phone: Clinical Notes 09-28-2022 to 01-18-2025 Note Date & Type Note Facility 01-18-2025 Hospital Discharge instructions Patient Education 01/18/2025 14:54:29 Laceration, Hand: All Closures Hand Laceration: All Closures A laceration is a cut through the skin. Deep cuts usually require stitches. Minor cuts may be closed with surgical tape or skin adhesive. X-rays may be done if something may have entered the skin through the cut, such as broken glass. You may also be given a tetanus shot if you are not up to date on this vaccination and the object that cut you may carry tetanus. Home care Your healthcare provider may prescribe an antibiotic. This is to help prevent infection. Follow all instructions for taking this medicine. Take the medicine every day until it is gone or you are told to stop. You should not have any left over. The healthcare provider may prescribe medicines for pain. Follow instructions for taking them. Follow the healthcare provider s instructions on how to care for the cut. Keep the wound clean and dry. Don't get the wound wet until you are told it is OK to do so. If the bandage gets wet, remove it. Gently pat the wound dry with a clean cloth. Then put on a clean, dry bandage. To help prevent infection, wash your hands with soap and water before and after caring for the wound. Caring for stiches: Once you no longer need to keep the stitches dry, clean the wound daily. First, remove the bandage. Then wash the area gently with soap and warm water, or as directed by the healthcare provider. Use a wet cotton swab to loosen and remove any blood or crust that forms. After cleaning, apply a thin layer of antibiotic ointment if advised. Then put on a new bandage unless you are told not to. Caring for skin glue: Don t put apply liquid, ointment, or cream on the wound while the glue is in place. Avoid activities that cause heavy sweating. Protect the wound from sunlight. Don't scratch, rub, or pick at the adhesive film. Don't place tape directly over the film. The glue should peel off within 5 to 10 days. Caring for surgical tape: Keep the area dry. If it gets wet, blot it dry with a clean towel. Surgical tape usually falls off within 7 to 10 days. If it has not fallen off after 10 days, you can take it off yourself. Put mineral oil or petroleum jelly on a cotton ball and gently rub the tape until it is removed. Once you can get the wound wet, you may shower as usual, but don't soak the wound in water. This means no tub baths or swimming. Even with proper treatment, a wound infection may sometimes occur. Check the wound daily for signs of infection listed below. Follow-up care Follow up with your healthcare provider, or as advised. If you have stitches, be sure to return as directed to have them removed. When to seek medical advice Call your healthcare provider right away if any of these occur: Wound bleeding not controlled by direct pressure Signs of infection, including increasing pain in the wound, increasing wound redness or swelling, or pus or bad odor coming from the wound Fever of 100.4 F (38. C) o higher, or as directed by your healthcare provider Stitches come apart or fall out or surgical tape falls off before 7 days Wound edges reopen Wound changes colors Numbness or weakness in the affected hand Decreased movement of the hand [id number] [employer]. [address] [place] [address], [place] [address]. All rights reserved. This information is not intended as a substitute for professional medical care. Always follow your healthcare professional's instructions. Follow Up Care 01/18/2025 13:54:18 With:LAURA STEELE Address: [address] [place] [phone] [phone] Believe[employer]in (1) When:2-4 days Comments:Schedule appointment as soon as possibleReturn to ED if symptoms worsenWash daily and apply antibiotic ointmentHave sutures removed in 12 to 14 daysFollow-up for any signs of infection [facility] 01-18-2025 Emergency department Discharge summary Discharge Instructions Thank you for allowing [facility] to assist you with your healthcare needs. The following is important discharge information regarding your hospital visit. Diagnosis from Today's Visit Finger laceration What to Do Next Instructions from Your Care Team No qualifying data available. Post Acute Orders No qualifying data available. You Need to Schedule the Following Appointments Follow Up with LAURA STEELE When:Within 2-4 days Where:[address] [place] [address]- [phone] [employer] (1) Additional Information: Schedule appointment as soon as possible Return to ED if symptoms worsen Wash daily and apply antibiotic ointment Have sutures removed in 12 to 14 days Follow-up for any signs of infection Allergies codeine Immunizations This Visit Given Vaccine Datetetanus/diphtheria/pertussMU [id number].[id number] 01/18/2025 Medications Please ask your primary doctor or pharmacist before taking any other medication not listed, including over the counter drugs, herbal medications, vitamins and or supplements as they may interact with your home medications. What How Much When Instructions Last Dose Unchanged brimonidine ophthalmic (Alphagan 0.2% ophthalmic solution) 1 Drops Left eye Every 8 hours Unchanged dorzolamide-timolol ophthalmic (dorzolamide-timolol 2.23%-0.68% ophthalmic solution) INSTILL 1 DROP INTO LEFT EYE TWICE A DAY Unchanged enalapril (enalapril 10 mg oral tablet) 1 tab(s) by mouth Every day Unchanged FLUoxetine (FLUoxetine 20 mg oral capsule) 1 cap by mouth Once a day Unchanged insulin glargine (Lantus Solostar Pen 100 units/ mL 3 mL Pen) 18 unit(s) Subcutaneous Once a day In case of pump failure Unchanged insulin lispro (HumaLOG) (HumaLOG 100 units/ mL injectable solution) USES UP TO 75UNITS DAILY VIA PUMP CONTINUOUS SUBCUTANEOUS INFUSION EVERY DAY Unchanged latanoprost ophthalmic (latanoprost 0.005% ophthalmic solution) 1 Drops Left eye Daily at bedtime Unchanged levothyroxine (levothyroxine 125 mcg (0.125 mg) oral tablet) 1 tab(s) by mouth Once a day Unchanged omeprazole (omeprazole 40 mg oral delayed release capsule) 1 cap by mouth Once a day Unchanged simvastatin (simvastatin 20 mg oral tablet) 1 tab(s) by mouth Daily at bedtime Please take this list to your next doctor s visit. Bring all medications you take, including over the counter medications, herbals and other supplements with you to your doctor s visit. Patients and families are reminded to discard old lists and to update any records with all medication providers or retail pharmacies. Education Materials Hand Laceration: All Closures A laceration is a cut through the skin. Deep cuts usually require stitches. Minor cuts may be closed with surgical tape or skin adhesive. X-rays may be done if something may have entered the skin through the cut, such as broken glass. You may also be given a tetanus shot if you are not up to date on this vaccination and the object that cut you may carry tetanus. Home care Your healthcare provider may prescribe an antibiotic. This is to help prevent infection. Follow all instructions for taking this medicine. Take the medicine every day until it is gone or you are told to stop. You should not have any left over. The healthcare provider may prescribe medicines for pain. Follow instructions for taking them. Follow the healthcare provider s instructions on how to care for the cut. Keep the wound clean and dry. Don't get the wound wet until you are told it is OK to do so. If the bandage gets wet, remove it. Gently pat the wound dry with a clean cloth. Then put on a clean, dry bandage. To help prevent infection, wash your hands with soap and water before and after caring for the wound. Caring for stiches: Once you no longer need to keep the stitches dry, clean the wound daily. First, remove the bandage. Then wash the area gently with soap and warm water, or as directed by the healthcare provider. Use a wet cotton swab to loosen and remove any blood or crust that forms. After cleaning, apply a thin layer of antibiotic ointment if advised. Then put on a new bandage unless you are told not to. Caring for skin glue: Don t put apply liquid, ointment, or cream on the wound while the glue is in place. Avoid activities that cause heavy sweating. Protect the wound from sunlight. Don't scratch, rub, or pick at the adhesive film. Don't place tape directly over the film. The glue should peel off within 5 to 10 days. Caring for surgical tape: Keep the area dry. If it gets wet, blot it dry with a clean towel. Surgical tape usually falls off within 7 to 10 days. If it has not fallen off after 10 days, you can take it off yourself. Put mineral oil or petroleum jelly on a cotton ball and gently rub the tape until it is removed. Once you can get the wound wet, you may shower as usual, but don't soak the wound in water. This means no tub baths or swimming. Even with proper treatment, a wound infection may sometimes occur. Check the wound daily for signs of infection listed below. Follow-up care Follow up with your healthcare provider, or as advised. If you have stitches, be sure to return as directed to have them removed. When to seek medical advice Call your healthcare provider right away if any of these occur: Wound bleeding not controlled by direct pressure Signs of infection, including increasing pain in the wound, increasing wound redness or swelling, or pus or bad odor coming from the wound Fever of 100.4 F (38. C) o higher, or as directed by your healthcare provider Stitches come apart or fall out or surgical tape falls off before 7 days Wound edges reopen Wound changes colors Numbness or weakness in the affected hand Decreased movement of the hand [phone] [employer]. [address] [place] [address]. All rights reserved. This information is not intended as a substitute for professional medical care. Always follow your healthcare professional's instructions. Additional Information VACCINATE! IT SAVES LIVES! Members of the community who have not yet received the COVID-19 vaccine and would like to receive it can visit one of [facility] vaccine clinics. There are many vaccine clinic locations within the [facility]. For locations and available times, please visit [email or web address].[place]. gov/. It is important to note that some COVID mobile vaccine clinics are held outdoors and may be canceled in rainy or stormy conditions. To learn more about pediatric vaccinations (ages 5-11), we invite you to visit the [facility] webpage. https://www.[facility].org/p ages/0563-Qsfia-Wazqjsddbtu-Freq uhofnv-Vcqjm-Wprodblwl.html To learn more about the COVID-19 vaccine, we invite you to visit the CDC website for a list of frequently asked questions. https://www.cdc.gov/coronavirus/ 2019-ncov/vaccines/faq.html [facility] Patient Portal Access Instructions: Stay connected with your healthcare team and access your personal medical information anytime with the [facility] Patient Portal. If you would like a full copy of your medical records please contact the [facility] Medical Records Department Monday through Monday between 8a.m. and 4:30p.m. Please follow the directions below to access the portal: 1.Access the email account you provided upon registration to the hospital.2.Look for an invitation email from [facility].3.Open the email and access the invitation link: Accept Invitation to [facility]4.Fill in the required gutierrez to create your account. To access your account, visit [employer] or scan the [employer] code above. Click the blue button labeled Access Patient Portal and then log in with the username and password that you created in the steps above. You can then view a summary of results, a summary of your visits, and the ability to download your summaries to your computer or send the information securely to a physician. Remember that your healthcare information is confidential, so carefully consider who you will allow to register on the [facility] Patient Portal for access to your information. You can also access the [facility] Patient Portal on the Company.[employer]. Simply click on Health Records under Health Data and then click on the [employer] logo. HOW TO SAFELY DISPOSE OF PRESCRIPTION MEDICATIONS Please use one of the following methods to safely dispose of your unused medications. 1.Use a drug disposal kit: the drug disposal pouch allows you to safely discard your old and unused drugs. Ask your nurse to give you one when you are discharged.2.Visit a local take-back location: Many local pharmacies and police departments have programs that collect old and unwanted prescription drugs. Call your local pharmacy or go to http://bit.[employer]/6D5To1q to find one close to you.3.Make use of household items: Use cat litter or old coffee grounds to dispose medications if other options are not available. Mix your drugs with these household products, seal them in an airtight container and throw it into the garbage. Call [facility]: [phone] to be sure your drugs can be disposed of in this way. Some medicines may require a different approach.4.Never flush your medications down the toilet. IF YOU HAVE BEEN PRESCRIBED AN OPIOIDS FOR PAIN If you have been prescribed an opioid (such as hydrocodone, oxycodone or morphine), it is critical to understand the possible side effects and risks of opioid pain medications. Even when taken as directed, opioids can have several side effects including: Tolerance, meaning you might need to take more of a medication for the same pain relief. Nausea, vomiting and/or constipation. Sleepiness, dizziness, dry mouth, confusion, depression or itching. Physical dependence, meaning you have withdrawal symptoms when a medication is stopped ? this can develop within a few days. KNOW YOUR RESPONSIBILITIES It is important to know exactly how much and how often to take the opioid pain medications you are prescribed. Never take opioids in higher amounts or more often than prescribed. Do not combine opioids with alcohol or other drugs that cause drowsiness, such as benzodiazepines, also known as benzos, including diazepam and alprazolam, muscle relaxants or sleep aids. Never sell or share prescription opioids. This is illegal. Store opioids in a secure place and out of reach of others (including children, family, friends and visitors). The last page(s) of this document has been signed and retained as a CHART COPY Signatures Patient Education Materials Jaciel, Hand: All Closures Medication Leaflets My discharge plan and instructions have been reviewed and explained to me and IYOANA DIANA L understand my current condition and have read and understand these discharge instructions. I have received a written copy of the plan/instructions. If I have questions, I am aware that I should contact my doctor. 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 Laura Steele MD Status: R EG CLI Study:Knee 4 or More Views Date of Exam: 12/13/24 Exam# [id number] Ordering Dr: Fortunato Steele MD PROCEDURE: KNEE 4 OR MORE VIEWS 12/13/2024 REASON FOR EXAM: BILATERAL KNEE PAIN TECHNIQUE: Procedure Code: RADKN Modality: DX Procedure: KNEE 4 OR MORE VIEWS Laterality: COMPARISON: None FINDINGS: There is no acute fracture or dislocation. Alignment is unremarkable. No significant joint fluid. Soft tissues are unremarkable. RAD/Knee 4 or More Views IMPRESSION: No significant abnormality. Reading Location: [facility] CC: Dr. Laura Steele MD ~ [employer]: Signed [facility] 12-13-2024 Radiology Diagnostic study note [facility] [address] [place] [id number] HIP, UNI W/ Pelvis 2-3 Views MR#: [id number] Acct: [id number] Name: FAY LEES Rep #: [id number] : 1965 F 59 From: Elías Loja MD PCP: Dr. Laura Steele MD Status: R EG CLI Study:HIP, UNI W/ Pelvis 2-3 Views Date of Ex am: 12/13/24 Exam# [id number] Ordering Dr: Fortunato Steele MD PROCEDURE: HIP, UNI W/ PELVIS 2-3 VIEWS 12/13/2024 REASON FOR EXAM: LEFT HIP PAIN TECHNIQUE: Procedure Code: RADHP Modality: DX Procedure: HIP, UNI W/ PELVIS 2-3 VIEWS Laterality: Left COMPARISON: None FINDINGS: The pelvis is intact. Mild hip joint space narrowing is noted, idpmj-izbnvun-ubuo-left. Symphysis pubis and sacroiliac joints are unremarkable. There is no acute fracture or dislocation noted. Atherosclerotic vascular calcifications are present. RAD/HIP, UNI W/ Pelvis 2-3 Views IMPRESSION: Mild degenerative changes. No acute fracture or dislocation. Reading Location: [facility] CC: Dr. Laura Steele MD ~ [employer]: Signed [facility] 12-13-2024 Radiology Diagnostic study note [facility] Imaging Services [address] [place] [address] Knee 4 or More Views MR#: [id number] Acct: [id number] Name: FAY LEES Rep #: [id number] : 1965 F 59 From: Elías Loja MD PCP: Dr. Laura Steele MD Status: R EG CLI Study:Knee 4 or More Views Date of Exam: 12/13/24 Exam# [id number] Ordering Dr: Fortunato Steele MD PROCEDURE: KNEE 4 OR MORE VIEWS 12/13/2024 REASON FOR EXAM: BILATERAL KNEE PAIN TECHNIQUE: Procedure Code: RADKN Modality: DX Procedure: KNEE 4 OR MORE VIEWS Laterality: Left COMPARISON: None FINDINGS: There is mild medial compartment joint space narrowing. There is no acute fracture or dislocation. Soft tissues are within normal limits. RAD/Knee 4 or More Views IMPRESSION: Minimal medial compartment joint space narrowing. Reading Location: [facility] CC: Dr. Laura Steele MD ~ [employer]: Signed [facility] 11-15-2024 Evaluation note Diagnosis Onset Date Resolution Health care maintenance acute A ugust 2024 7:24am Anxiety and depression chronic Au michael 2024 7:24am Hypertension chronic November 15, 2024 7:24am Left hip pain chronic November 15, 2024 7:24am Trigger finger chronic November 7:24am [facility] Work Phone: 1(485) 711-632804-17-2025 Evaluation note* Diagnosis Onset Date Resolution Status Admit Date Anemia acute July 25 7:50am Diabetes mellitus type I chronic July 25, 2024 7:50am Diabetic polyneuropathy associated with type 1 diabetes mellitus chronic July 25, 2024 7:50am Diabetic retinopathy associa aslomón with type 1 diabetes mellitus chronic Ap ril 2024 7:50am Hypertension chronic July 25, 2024 7:50am 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 July 252024 7:50am Obesity chronic July 25 7:50am Presence of insulin pump chronic July 25, 2024 7:50am Chest pain, atypical acute August 09, 2024 1:49pm Anxiety and depression chronic 2024 1:49pm Diabetic polyneuropathy associated with type 1 diabetes mellitus chronic August 09, 2024 1: 49pm [facility] Work Phone: 1(679) 512-900903-26-2025 Evaluation note* Diagnosis Onset Date Resolution Status Admit Date Bilateral knee pain acute July 03, 2024 4:33pm Anxiety and depression chronic [facility] 2024 4:33pm Flatulence chronic July 03 4:33pm GERD (gastroesophageal reflu x disease) chronic July 03, 2024 4:33pm Hypertension chronic July 03, 2024 4:33pm Anemia acute July 25 7:50am Diabetes mellitus type I chronic July 25, 2024 7:50am Diabetic polyneuropathy associated with type 1 diabetes mellitus chronic July 25, 2024 7:50am Diabetic retinopathy associa salomón with type 1 diabetes mellitus chronic Ap ril 2024 7:50am Hypertension chronic July 25, 2024 7:50am 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 Mccormack [facility] September 29, 2022 12:32pm Note Date/Time September 29, 2022 12:2 9pm [facility] Medical Records Department [address] [place] [address] Discharge Summary 09/29/22 1228 MR#: [id number] Acct: [id number] Name: FAY LEES Rep #:[id number] : 1965 56 From: Rahat frey MD PCP: Dr. Laura Steele MD Status:A DM IN [id number] Providers Date of Admission: 09/28/22 Primary Care Physician: Dr. Laura Steele MD Consultations 09/29/22 07:35 Consult: Hospitalist Routine Consulting Provider: Stacy Beebe Reason for Consult: glucose management EMERGENT Consult: No MD Notified: Yes Date Notified: 09/29/22 Time Notified: 07:35 Method of Notification: Verbal Reason For Visit: ACUTE APPENDICITIS Diagnosis Discharge Diagnosis (1) Acute appendicitis: Status: Acute Code(s): K35.80 - Unspecified acute appendicitis Qualifiers: Acute appendicitis type: unspecified acute appendicitis type Qualified Code(s): K35.80 - Unspecified acute appendicitis (2) Diabetes mellitus type I: Status: Chronic Qualifiers: Diabetes mellitus complication status: with hyperglycemia Qualified Code(s): E10.65 - Type 1 diabetes mellitus with hyperglycemia (3) Hyperglycemia: Status: Acute Code(s): R73.9 - Hyperglycemia, unspecified (4) Metabolic acidosis: Status: Acute Code(s): E87.20 - Acidosis, unspecified Plan The patient denies any abdominal pain that she was having yesterday. I will start her on clear liquid diet. Patient's glucose is significantly elevated Anali had to remove her insulin pump for surgery yesterday. I have consulted the hospitalist to assist with glucose management. Rahat Mccormack MD Pager: [facility] [address] [place] [address], [address] [place] [address] Office: Medications at Discharge Home Medications cholecalciferol (vitamin D3) 125 mcg (5,000 unit) capsule 5,000 unit PO QDAY 03/15/17 insulin pump syringe 1.8 mL 01/23/18 blood-glucose meter,continuous (Dexcom G6 Retail [employer] Merchandiser) #1 ea 11/26/20 blood-glucose sensor (Dexcom G6 Sensor device) #9 ea 01/26/22 blood-glucose transmitter (Dexcom G6 Transmitter device) #1 ea 01/26/22 omeprazole 40 mg capsule,delayed release 40 mg PO DAILY #90 caps 02/09/22 simvastatin 20 mg tablet See Rx Instructions .Route .COMPLEX #90 tabs 05/02/22 insulin lispro 100 unit/mL subcutaneous solution (Humalog U-100 Insulin) 100 unit subcut .continuous #90 mL 06/29/22 enalapril maleate 5 mg tablet See Rx Instructions .Route .COMPLEX #90 tabs 07/20/22 levothyroxine 125 mcg tablet 125 mcg PO DAILY #90 tabs 07/20/22 fluoxetine 40 mg capsule 40 mg PO BID depression, hot flashes #180 caps 08/18/22 insulin pump cart,cont inf,BT (Omnipod Dash Pods (Gen 4) subcutaneous cartridge)#30 ea 09/13/22 acetaminophen 325 mg tablet 650 mg PO Q4H PRN PRN Pain 1-10/Fever #0 tabs 09/29/22 oxycodone-acetaminophen 5 mg-325 mg tablet 1 tab PO Q4H PRN PRN Pain Score 6-10 5 days #20 tabs 09/29/22 Hospital Course Operations appendectomy Summary of Care Provided Hospital Course: Patient was admitted with abdominal pain and had laparoscopic appendectomy. Thefollowing day she said the pain improved but she was feeling unwell due to her glucose. I consulted the hospitalist for improvement in management of glucose control. I checked back on the patient that afternoon and the patient had tolerated clears and was wanting regular foods her diet was advanced. Once tolerating regular diet she was discharged home. Weight / BMI Weight Weight: 210 lb 12.191 oz Body Mass Index (BMI) 41.1 ABG / Lab / Microbiology Data Result Diagrams: 09/29/22 06:14 09/29/22 09:10 Laboratory: Laboratory Results - last 24 hr 09/28/22 18:40: WBC 8.2, RBC 4.14 L, Hgb 12.2, Hct 36.5 L, MCV 88.2, MCH 29.5, MCHC 33.4, RDW Std Deviation 41.1, RDW Coeff of Frank 12.8, Plt Count 218, MPV 10.3, Immature Gran % (Auto) 0.500, Neut % (Auto) 69.9, Lymph % (Auto) 20.8, Charles % (Auto) 6.8, Eos % (Auto) 1.3, Baso % (Auto) 0.7, Absolute Neuts (auto) 5.7, Absolute Lymphs (auto) 1.70, Nucleated RBC % 0 09/28/22 18:40: Sodium 139, Potassium 3.8, Chloride 105, Carbon Dioxide 22.0, Anion Gap 12, BUN 16, Creatinine 0.90, Estim Creat Clear Calc 61.71, Est GFR (MDRD) Af Amer 83, Est GFR (MDRD) Non-Af 69, BUN/Creatinine Ratio 17.7, Glucose 175 H, Calcium 9.0, Total Bilirubin 0.50, Direct Bilirubin 0.14, AST 12 L, ALT 20, Alkaline Phosphatase 90, Troponin I High Sens 4, Total Protein 7.3, Albumin 3.6, Globulin 3.7, Lipase 14 09/28/22 19:04: POC Glucose 174 H 09/28/22 23:15: POC Glucose 193 H 09/29/22 02:19: POC Glucose 293 H 09/29/22 06:14: WBC 16.9 H, RBC 4.01 L, Hgb 12.0, Hct 37.1, MCV 92.5, MCH 29.9, MCHC 32.3, RDW Std Deviation 44.4 H, RDW Coeff of Frank 13.0, Plt Count 198, MPV 10.9, Immature Gran % (Auto) 1.000 H, Neut % (Auto) 92.2 H, Lymph % (Auto) 4.2 L, Charles % (Auto) 2.2, Eos % (Auto) 0.0, Baso % (Auto) 0.4, Absolute Neuts (auto) 15.6 H, Absolute Lymphs (auto) 0.71 L, Nucleated RBC % 0 09/29/22 06:14: Sodium 135 L, Potassium 4.7, Chloride 107, Carbon Dioxide 15.0 L, Anion Gap 13, BUN 19 H, Creatinine 0.81, Estim Creat Clear Calc 57.03, Est GFR(MDRD) Af Amer 95, Est GFR (MDRD) Non-Af 79, BUN/Creatinine Ratio 23.6 H, Glucose 361 H, Calcium 8.6 09/29/22 06:37: POC Glucose 333 H 09/29/22 07:42: POC Glucose 334 H 09/29/22 08:46: POC Glucose 274 H 09/29/22 09:10: Sodium 137, Potassium 3.7, Chloride 108 H, Carbon Dioxide 16.0 L, Anion Gap 13, BUN 20 H, Creatinine 0.87, Estim Creat Clear Calc 53.10, Est GFR(MDRD) Af Amer 87, Est GFR (MDRD) Non-Af 72, BUN/Creatinine Ratio 23.0 H, Glucose 282 H, Calcium 8.2 L 09/29/22 11:07: POC Glucose 163 H Radiography Diagnostic Testing: Radiology Impression Abdomen/Pelvis CT 09/28/22 19:53 IMPRESSION: (NOT LISTED IN ORDER OF SIGNIFICANCE) Acute appendicitis. There is no evidence to suggest abscess formation. Other findings as above. Non standard communication findings protocol was initiated. Electronically Signed: Sawyer Aguillon MD at 20:56 EDT , ADDENDUM: 09/28/222108 IMPRESSION: (NOT LISTED IN ORDER OF SIGNIFICANCE) Acute appendicitis. There is no evidence to suggest abscess formation. Other findings as above. Non standard communication findings protocol was initiated. N.B. : The above Results were Read Back by Sawyer Aguillon MD to Scarlett Linn MD, and understanding confirmed on 09/28/2022 21:03:01 (ET). Electronically Signed: Sawyer Aguillon MD at 20:56 EDT , D/C Instructions Discharge Diet: Light diet - advance as tolerated Discharge Activity: May Not Drive (for 2-3 days or while taking narcotic pain medications) May shower in (days): 1 Call your doctor if your incision/area has: Continuous Slow Oozing, Sudden Increased Bleeding, Increased Pain/ Swelling, Increased Redness and Foul Smelling Discharge Call your doctor if you observe: Fever of 101 or Higher Suture Line Care: Avoid Pulling/Pushing and Avoid Pinching/Bending Remove Dressing in: 2 days Cleanse incision/area with: Soap & Water Additional Instructions: Keep dressing clean and dry. Change or remove dressing in 2 days. Leave steri strips for 1 week. May protect with a gauze bandaid. Please Follow Up With: Rahat Mccormack MD When: Please call to schedule 2 week follow up appointment at [phone] Meaningful Use Info Meaningful Use Diagnoses (Choose all that apply): None applicable Discharge Plan Admission Admit Date/Time: 09/28/22 23:02 Attending Provider: Rahat Mccormack Primary Care Provider: Laura Steele Consulting Providers: Stacy Beebe Discharge Orders/Prescriptions Prescriptions: New acetaminophen 325 mg Tablet 650 mg PO Q4H PRN PRN (Reason: Pain 1-10/Fever) Qty: 0 0RF oxycodone-acetaminophen 5-325 mg Tablet 1 tab PO Q4H PRN PRN (Reason: Pain Score 6-10) 5 Days Qty: 20 0RF Continued cholecalciferol (vitamin D3) 5,000 unit capsule 5,000 unit PO QDAY (DME) Dexcom G6 Sensor Device See Rx Instructions .ROUTE .MEDSUPPLY Qty: 9 3RF Rx Instructions: change every 10 days (DME) Dexcom G6 Transmitter Device See Rx Instructions .ROUTE .MEDSUPPLY Qty: 1 3RF Rx Instructions: As directed omeprazole 40 mg capsule,delayed release(DR/EC) 40 mg PO DAILY Qty: 90 3RF fluoxetine 40 mg capsule 40 mg PO BID Qty: 180 3RF (DME) insulin pump syringe 1 EACH misc 1 ea MC CONT (DME) Dexcom G6 Retail Field Merchandiser Misc See Rx Instructions .ROUTE .MEDSUPPLY Qty: 1 0RF Rx Instructions: As directed simvastatin 20 mg tablet See Rx Instructions .ROUTE .COMPLEX Qty: 90 3RF Dose Instruction: TAKE 1 TABLET BY MOUTH AT BEDTIME Rx Instructions: TAKE 1 TABLET BY MOUTH AT BEDTIME insulin lispro [Humalog U-100 Insulin] 100 unit/mL solution 100 unit SC .continuous Qty: 90 1RF Rx Instructions: viaInsulin Pump levothyroxine 125 mcg tablet 125 mcg PO DAILY Qty: 90 1RF enalapril maleate 5 mg tablet See Rx Instructions .ROUTE .COMPLEX Qty: 90 1RF Dose Instruction: TAKE 1 TABLET BY MOUTH EVERY DAY Rx Instructions: TAKE 1 TABLET BY MOUTH EVERY DAY (DME) Omnipod Dash Pods (Gen 4) Cartridge See Rx Instructions .Route Qty: 30 1RF Rx Instructions: change every 3 days Referrals / Follow Up: Laura Steele MD [Primary Care Provider] - Disposition Disposition (needs filled in before D/C Order can be placed): Home, Self Care 09/29/22 1232 <Electronically signed by Rahat Mccormack MD> Cosigner Signature (if applicable): CC: Dr. Rahat Mccormack MD; Dr. Laura Steele MD~ Signed [facility] Work Phone: 1(416) 836-156706-22-[address] Beebe [facility] September 29, 2022 11:34am Note Date/Time September 29, 2022 7:55 am [facility] Medical Records Department [address] [place] [address] Progress Note - Hospitalist 09/29/22 0744 MR#: [id number] Acct: [id number] Name: FAY LEES Rep #:[id number] : 1965 56 From: Stacy Beebe DO PCP: Dr. Laura Steele MD Status:A DM IN Location: MA3 AK465-9 Reason for Visit Reason for Visit: Abdominal pain Subjective Subjective Mrs. Lees is a 56-year-old white female who presents emergency department 3 complaining of severe abdominal pain that started the day prior to presentation and has gradually gotten worse. She developed nausea and vomiting on the day ofpresentation. She denied fever chills and diarrhea. She has a history of type 1 diabetes and it appears that her hemoglobin A1c is well controlled with her last being 6.5. She does follow with endocrinology as an outpatient. Her last visit there was in July 2022. She wears an insulin pump at baseline. CT scan of the abdomen pelvis revealed acute appendicitis and the patient was given a dose of Zosyn and she was taken to the operating room last evening at which timea laparoscopic appendectomy was performed. Her insulin pump was removed at the time of surgery which was about 10:30 PM. She has not had an insulin pump in place and is only on sliding scale subcu insulin at this time. Her blood sugar was noted to be high this morning and we have been consulted for blood sugar management. Laboratory data this morning revealed a leukocytosis with a white count of 16.9 likely reactive. Otherwise her CBC was unremarkable. Her chemistry panel showsmild hyponatremia at 135. This is likely pseudohyponatremia as her blood [id number]. Her serum bicarb was 15 and her anion gap is 13. Appears she is trending towards DKA but not severe at this time. We will go ahead and give her Lantus 20 units x 1 dose. Patient is unsure of what her basal rate is. We will also give her 15 units stat of subcu Humalog and 1 L of IV fluids. Repeat BMP will be performed at 930 to reevaluate. Objective Data Objective Data Vital Signs: Vital Signs Temp Pulse Resp BP Pulse Ox O2 Del Method O2 Flow Rate 97.9 F 100 16 118/56 L 94 Room Air 2 09/29/22 04:02 09/29/22 04:02 09/29/22 04:02 09/29/22 04:02 09/29/22 07:30 09/29/22 07:30 09/29/22 00:04 Oxygen Flow Rate (L/min) 2 Oxygen Delivery Method Room Air Weight: 95.6 kg Body Mass Index (BMI) 41.1 Intake & Output: Intake and Output for Last 24 Hours 09/27/22 09/28/22 09/29/22 23:59 23:59 23:59 Intake Total 2049 / 2049 39.25 / 39.25 Output Total 600 / 600 200 / 200 Balance 1450 / 1450 -160.75 / -160.75 Lab / Micro Data Result Diagrams: 09/29/22 06:14 09/29/22 09:10 Labs: Laboratory Results - last 24 hr 09/28/22 18:40: WBC 8.2, RBC 4.14 L, Hgb 12.2, Hct 36.5 L, MCV 88.2, MCH 29.5, MCHC 33.4, RDW Std Deviation 41.1, RDW Coeff of Frank 12.8, Plt Count 218, MPV 10.3, Immature Gran % (Auto) 0.500, Neut % (Auto) 69.9, Lymph % (Auto) 20.8, Charles % (Auto) 6.8, Eos % (Auto) 1.3, Baso % (Auto) 0.7, Absolute Neuts (auto) 5.7, Absolute Lymphs (auto) 1.70, Nucleated RBC % 0 09/28/22 18:40: Sodium 139, Potassium 3.8, Chloride 105, Carbon Dioxide 22.0, Anion Gap 12, BUN 16, Creatinine 0.90, Estim Creat Clear Calc 61.71, Est GFR (MDRD) Af Amer 83, Est GFR (MDRD) Non-Af 69, BUN/Creatinine Ratio 17.7, Glucose 175 H, Calcium 9.0, Total Bilirubin 0.50, Direct Bilirubin 0.14, AST 12 L, ALT 20, Alkaline Phosphatase 90, Troponin I High Sens 4, Total Protein 7.3, Albumin 3.6, Globulin 3.7, Lipase 14 09/28/22 19:04: POC Glucose 174 H 09/28/22 23:15: POC Glucose 193 H 09/29/22 06:14: WBC 16.9 H, RBC 4.01 L, Hgb 12.0, Hct 37.1, MCV 92.5, MCH 29.9, MCHC 32.3, RDW Std Deviation 44.4 H, RDW Coeff of Frank 13.0, Plt Count 198, MPV 10.9, Immature Gran % (Auto) 1.000 H, Neut % (Auto) 92.2 H, Lymph % (Auto) 4.2 L, Charles % (Auto) 2.2, Eos % (Auto) 0.0, Baso % (Auto) 0.4, Absolute Neuts (auto) 15.6 H, Absolute Lymphs (auto) 0.71 L, Nucleated RBC % 0 09/29/22 06:14: Sodium 135 L, Potassium 4.7, Chloride 107, Carbon Dioxide 15.0 L, Anion Gap 13, BUN 19 H, Creatinine 0.81, Estim Creat Clear Calc 57.03, Est GFR(MDRD) Af Amer 95, Est GFR (MDRD) Non-Af 79, BUN/Creatinine Ratio 23.6 H, Glucose 361 H, Calcium 8.6 09/29/22 06:37: POC Glucose 333 H Radiography Diagnostic Testing: Radiology Impression Abdomen/Pelvis CT 09/28/22 19:53 IMPRESSION: (NOT LISTED IN ORDER OF SIGNIFICANCE) Acute appendicitis. There is no evidence to suggest abscess formation. Other findings as above. Non standard communication findings protocol was initiated. Electronically Signed: Sawyer Aguillon MD at 20:56 EDT , ADDENDUM: 09/28/222108 IMPRESSION: (NOT LISTED IN ORDER OF SIGNIFICANCE) Acute appendicitis. There is no evidence to suggest abscess formation. Other findings as above. Non standard communication findings protocol was initiated. N.B. : The above Results were Read Back by Sawyer Aguillon MD to Scarlett Linn MD, and understanding confirmed on 09/28/2022 21:03:01 (ET). Electronically Signed: Sawyer Aguillon MD at 20:56 EDT , Physical Exam Const alert, oriented x3, no apparent distress, healthy appearing and well nourished; Negative for average body habitus Constitutional Narrative: Morbidly obese, white female, sitting up in bed, appears comfortable and nontoxic, states she is feeling much better than she did this morning HEENT head/scalp atraumatic and moist oral mucous membranes HEENT Narrative: Mallampati 3, no thrush Head and Scalp: normocephalic Resp normal respiratory effort, no retractions, no use of accessory muscles and clearto auscultation bilaterally Auscultation: Negative for rales, rhonchi or wheezes Cardio regular rate, regular rhythm, S1 normal heart sound, S2 normal heart sound, no murmurs, no rub, no gallops and no clicks GI normal to inspection, nondistended, normoactive bowel sounds and soft to palpation GI Narrative: Mild tenderness around laparoscopic sites, postoperative Steri-Strips in place and are clean dry and intact, no drainage Extremity no clubbing, cyanosis or edema Extremity Narrative: 2+ pedal pulses Neuro oriented x3, moves all extremities and no focal motor deficits Speech: speech normal Psych affect normal Psych Narrative: Pleasant, appropriately interactive Assessment & Plan Assessment/Plan (1) Acute appendicitis: QUALIFIERS: Acute appendicitis type: unspecified acute appendicitis type Qualified Code(s): K35.80 - Unspecified acute appendicitis (2) Diabetes mellitus type I: QUALIFIERS: Diabetes mellitus complication status: with hyperglycemia Qualified Code(s): E10.65 - Type 1 diabetes mellitus with hyperglycemia (3) Hyperglycemia: (4) Metabolic acidosis: PLAN: Plan Acute appendicitis -Postop day 1 from laparoscopic appendectomy -Management per primary service -Patient is on clear liquid diet at this time DM-1 with acute hyperglycemia -This is related to lack of insulin and patient is trending towards DKA however does not appear to be severe at this time -IV fluid bolus with normal saline x1 -Stat subcu insulin Humalog 15 units with repeat blood sugar in 30 minutes -Lantus 20 units to be given x1 dose -Repeat BMP at 930. If no improvement or worsening will need transfer to the ICU for insulin drip -Patient is unclear what her basal rate is we will try to clarify with endocrinology once their office is open -Plan to replace pump at the time of discharge Metabolic acidosis -Mild -Serum bicarb 15 -Likely related to the above -Repeat lab work at 930 to reevaluate Diabetic neuropathy/diabetic retinopathy -Patient takes no chronic medication for this Hypertension -Continue enalapril Hypothyroidism -Continue levothyroxine GERD -Continue PPI Vitamin D deficiency -Continue cholecalciferol 5000 units daily History of diabetic foot wounds -No current issues Depression Continue fluoxetine Morbid obesity -BMI is 41.2 -Complicates treatment, prognosis, outcomes DVT prophylaxis -Per primary service -SCDs for now CODE STATUS -Full code Charges/Coding Visit Charges Inpatient E&M: 81660 Subs Hosp L2 09/29/22 1139 <Electronically signed by tSacy Beebe DO> Cosigner Signature (if applicable): CC: ~ Signed [facility] Work Phone: 1(742) 599-238306-22-[address] Mccormack [facility] September 29, 2022 7:42am Note Date/Time September 29, 2022 7:42 am [facility] Medical Records Department [address] [place] [address] Progress Note - Surgery 09/29/2241 MR#: [id number] Acct: [id number] Name: FAY LEES Rep #:[id number] : 1965 56 From: Rahat frey MD PCP: Dr. Laura Steele MD Status:A DM IN Location: [facility] [place] [id number] Subjective Subjective Patient is not feeling well this morning because she says her glucose is elevated. She says the abdominal pain she was having yesterday is gone. She denies any nausea or vomiting overnight. Objective Data Objective Data Vital Signs: Vital Signs Temp Pulse Resp BP Pulse Ox O2 Del Method O2 Flow Rate 97.9 F 100 16 118/56 L 94 Room Air 2 09/29/22 04:02 09/29/22 04:02 09/29/22 04:02 09/29/22 04:02 09/29/22 07:30 09/29/22 07:30 09/29/22 00:04 Oxygen Flow Rate (L/min) 2 Oxygen Delivery Method Room Air Weight: 210 lb 12.191 oz Body Mass Index (BMI) 41.1 Intake & Output: Intake and Output for Last 24 Hours 09/27/22 09/28/22 09/29/22 23:59 23:59 23:59 Intake Total 2049 39.25 / 39.25 Output Total 600 / 600 200 / 200 Balance 1450 / 1450 -160.75 / -160.75 Lab / Micro Data Result Diagrams: 09/29/22 06:14 09/29/22 06:14 Labs: Laboratory Results - last 24 hr 09/28/22 18:40: WBC 8.2, RBC 4.14 L, Hgb 12.2, Hct 36.5 L, MCV 88.2, MCH 29.5, MCHC 33.4, RDW Std Deviation 41.1, RDW Coeff of Frank 12.8, Plt Count 218, MPV 10.3, Immature Gran % (Auto) 0.500, Neut % (Auto) 69.9, Lymph % (Auto) 20.8, Charles % (Auto) 6.8, Eos % (Auto) 1.3, Baso % (Auto) 0.7, Absolute Neuts (auto) 5.7, Absolute Lymphs (auto) 1.70, Nucleated RBC % 0 09/28/22 18:40: Sodium 139, Potassium 3.8, Chloride 105, Carbon Dioxide 22.0, Anion Gap 12, BUN 16, Creatinine 0.90, Estim Creat Clear Calc 61.71, Est GFR (MDRD) Af Amer 83, Est GFR (MDRD) Non-Af 69, BUN/Creatinine Ratio 17.7, Glucose 175 H, Calcium 9.0, Total Bilirubin 0.50, Direct Bilirubin 0.14, AST 12 L, ALT 20, Alkaline Phosphatase 90, Troponin I High Sens 4, Total Protein 7.3, Albumin 3.6, Globulin 3.7, Lipase 14 09/28/22 19:04: POC Glucose 174 H 09/28/22 23:15: POC Glucose 193 H 09/29/22 06:14: WBC 16.9 H, RBC 4.01 L, Hgb 12.0, Hct 37.1, MCV 92.5, MCH 29.9, MCHC 32.3, RDW Std Deviation 44.4 H, RDW Coeff of Frank 13.0, Plt Count 198, MPV 10.9, Immature Gran % (Auto) 1.000 H, Neut % (Auto) 92.2 H, Lymph % (Auto) 4.2 L, Charles % (Auto) 2.2, Eos % (Auto) 0.0, Baso % (Auto) 0.4, Absolute Neuts (auto) 15.6 H, Absolute Lymphs (auto) 0.71 L, Nucleated RBC % 0 09/29/22 06:14: Sodium 135 L, Potassium 4.7, Chloride 107, Carbon Dioxide 15.0 L, Anion Gap 13, BUN 19 H, Creatinine 0.81, Estim Creat Clear Calc 57.03, Est GFR(MDRD) Af Amer 95, Est GFR (MDRD) Non-Af 79, BUN/Creatinine Ratio 23.6 H, Glucose 361 H, Calcium 8.6 09/29/22 06:37: POC Glucose 333 H Radiography Diagnostic Testing: Radiology Impression Abdomen/Pelvis CT 09/28/22 19:53 IMPRESSION: (NOT LISTED IN ORDER OF SIGNIFICANCE) Acute appendicitis. There is no evidence to suggest abscess formation. Other findings as above. Non standard communication findings protocol was initiated. Electronically Signed: Sawyer Aguillon MD at 20:56 EDT , ADDENDUM: 09/28/222108 IMPRESSION: (NOT LISTED IN ORDER OF SIGNIFICANCE) Acute appendicitis. There is no evidence to suggest abscess formation. Other findings as above. Non standard communication findings protocol was initiated. N.B. : The above Results were Read Back by Sawyer Aguillon MD to Scarlett Linn MD, and understanding confirmed on 09/28/2022 21:03:01 (ET). Electronically Signed: Sawyer Aguillon MD at 20:56 EDT , Assessment & Plan Assessment/Plan (1) Diabetes mellitus type I: QUALIFIERS: Diabetes mellitus complication status: with hyperglycemia Qualified Code(s): E10.65 - Type 1 diabetes mellitus with hyperglycemia (2) Acute appendicitis: QUALIFIERS: Acute appendicitis type: unspecified acute appendicitis type Qualified Code(s): K35.80 - Unspecified acute appendicitis PLAN: Plan The patient denies any abdominal pain that she was having yesterday. I will start her on clear liquid diet. Patient's glucose is significantly elevated Anali had to remove her insulin pump for surgery yesterday. I have consulted the hospitalist to assist with glucose management. Rahat Mccormack MD Pager: [facility] [address] [place] [address], [address] [place] [address] Office: 09/29/22 0749 <Electronically signed by Rahat Mccormack MD> Cosigner Signature (if applicable): CC: ~ Signed [facility] Work Phone: [phone]) 772-891306-22-2023 History and physical note Author Dr. Mccormack [facility] September 28, 2022 10:09pm Note Date/Time September 28, 2022 10:0 7pm [facility] Medical Records Department [address] [place] [address] H&P Exam - Surgical 09/28/222204 MR#: [id number] Acct: [id number] Name: FAY LEES Rep #:[id number] : 1965 56 From: Rahat frey MD PCP: Dr. Laura Steele MD Status:R [facility] [place] [place] Location: [facility] [place] [place] HPI - General HPI Narrative FAY LEES, is a 56 F who presents with epigastric pain and nausea and vomiting. Patient reports the pain started off-and-on on Monday but became worse yesterday. She reports that she is nauseous and she threw up on her way into the hospital today. She is currently nauseous and feel like she is going to throw up as well. She denies fevers or chills. Says the pain is all over her upper abdomen. [facility] Medical History Acute hematogenous osteomyelitis Anxiety and depression bilat eye surgery Breast cancer screening Charcot's joint of left foot Diabetes type 1, controlled Diabetic foot infection Dysmenorrhea great toe fusion History of endometrial biopsy Hyperlipidemia Hyperparathyroidism Hypothyroidism Needs flu shot nonhealing plantar l foot wound novasure Obesity open wound of toes Peripheral neuropathy Peripheral vascular disease of lower extremity PVD (peripheral vascular disease) Skin picking habit Home Medications cholecalciferol (vitamin D3) 125 mcg (5,000 unit) capsule 5,000 unit PO QDAY 03/15/17 [History Last Taken Unknown] insulin pump syringe 1.8 mL 01/23/18 [History Last Taken Unknown] blood-glucose meter,continuous (Dexcom G6 Retail Field Merchandiser) #1 ea 11/26/20 [Rx Last Taken Unknown] blood-glucose sensor (Dexcom G6 Sensor device) #9 ea 01/26/22 [Rx Last Taken Unknown] blood-glucose transmitter (Dexcom G6 Transmitter device) #1 ea 01/26/22 [Rx Last Taken Unknown] omeprazole 40 mg capsule,delayed release 40 mg PO DAILY #90 caps 02/09/22 [Rx Last Taken Unknown] simvastatin 20 mg tablet See Rx Instructions .Route .COMPLEX #90 tabs 05/02/22 [Rx Last Taken Unknown] insulin lispro 100 unit/mL subcutaneous solution (Humalog U-100 Insulin) 100 unit subcut .continuous #90 mL 06/29/22 [Rx Last Taken Unknown] enalapril maleate 5 mg tablet See Rx Instructions .Route .COMPLEX #90 tabs 07/20/22 [Rx Last Taken Unknown] levothyroxine 125 mcg tablet 125 mcg PO DAILY #90 tabs 07/20/22 [Rx Last Taken Unknown] fluoxetine 40 mg capsule 40 mg PO BID depression, hot flashes #180 caps 08/18/22[Rx Last Taken Unknown] insulin pump cart,cont inf,BT (Omnipod Dash Pods (Gen 4) subcutaneous cartridge)#30 ea 09/13/22 [Rx Last Taken Unknown] Allergy/AdvReac Type Severity Reaction Status Date / Time codeine AdvReac Vomiting Verified 09/28/22 18:23 Family History Mother Diabetes Father Diabetes Grandfather Diabetes Grandmother Diabetes Surgical History History of tonsillectomy Hx of adenoidectomy Hx of section Hx of tubal ligation S/P foot surgery, left S/P transmetatarsal amputation of foot Status post bilateral foot surgery Social History Smoking Status: Never smoker second hand exposure: No alcohol intake: current substance use type: does not use caffeine: Yes ROS Constitutional Constitutional: Denies anorexia, chills, fatigue or fever(s) Eyes Eyes: Denies blurry vision ENT HEENT: Denies abnormal hearing Cardiovascular Cardiovascular: Denies chest pain Respiratory/Chest Respiratory/Chest: Denies cough or dyspnea Gastrointestinal Gastrointestinal: Reports abdominal pain, nausea and vomiting; Denies constipation Genitourinary Genitourinary: Denies change in urinary stream Musculoskeletal Musculoskeletal: Denies abnormal gait Integumentary Integumentary: Denies jaundice Neurologic Neurologic: Denies abnormal gait Psychiatric Psychiatric: Denies anxiety Hematologic/Lymphatic Hematologic/Lymphatic: Denies easy bleeding Vital Signs Vital Signs Vital Signs: 09/28/22 18:23 09/28/22 18:59 09/28/22 20:42 Temperature 96 F L Temperature Source Temporal Pulse Rate 86 76 Respiratory Rate 14 Blood Pressure 181/77 H 123/62 H Blood Pressure Mean 111 82 Pulse Ox 98 97 96 Oxygen Delivery Method Room Air Room Air 09/28/22 21:37 Temperature 98 F Temperature Source Oral Pulse Rate 81 Respiratory Rate 18 Blood Pressure 146/72 H Blood Pressure Mean 96 Pulse Ox 98 Oxygen Delivery Method Room Air Weight Weight: 199 lb 11.821 oz Body Mass Index (BMI) 34.2 Physical Exam Const oriented x3 and no apparent distress Resp normal respiratory effort Cardio regular rate and regular rhythm GI soft to palpation Inspection: Negative for abdominal distention Palpation: tender periumbilical Results Lab / Micro Data Result Diagrams: 09/28/22 18:40 09/28/22 18:40 Labs: Laboratory Results - last 24 hr 09/28/22 18:40: WBC 8.2, RBC 4.14 L, Hgb 12.2, Hct 36.5 L, MCV 88.2, MCH 29.5, MCHC 33.4, RDW Std Deviation 41.1, RDW Coeff of Frank 12.8, Plt Count 218, MPV 10.3, Immature Gran % (Auto) 0.500, Neut % (Auto) 69.9, Lymph % (Auto) 20.8, Charles % (Auto) 6.8, Eos % (Auto) 1.3, Baso % (Auto) 0.7, Absolute Neuts (auto) 5.7, Absolute Lymphs (auto) 1.70, Nucleated RBC % 0 09/28/22 18:40: Sodium 139, Potassium 3.8, Chloride 105, Carbon Dioxide 22.0, Anion Gap 12, BUN 16, Creatinine 0.90, Estim Creat Clear Calc 61.71, Est GFR (MDRD) Af Amer 83, Est GFR (MDRD) Non-Af 69, BUN/Creatinine Ratio 17.7, Glucose 175 H, Calcium 9.0, Total Bilirubin 0.50, Direct Bilirubin 0.14, AST 12 L, ALT 20, Alkaline Phosphatase 90, Troponin I High Sens 4, Total Protein 7.3, Albumin 3.6, Globulin 3.7, Lipase 14 09/28/22 19:04: POC Glucose 174 H Radiology Impression Abdomen/Pelvis CT 09/28/22 19:53 IMPRESSION: (NOT LISTED IN ORDER OF SIGNIFICANCE) Acute appendicitis. There is no evidence to suggest abscess formation. Other findings as above. Non standard communication findings protocol was initiated. Electronically Signed: Sawyer Aguillon MD at 20:56 EDT , ADDENDUM: 09/28/222108 IMPRESSION: (NOT LISTED IN ORDER OF SIGNIFICANCE) Acute appendicitis. There is no evidence to suggest abscess formation. Other findings as above. Non standard communication findings protocol was initiated. N.B. : The above Results were Read Back by Sawyer Aguillon MD to Scarlett Linn MD, and understanding confirmed on 09/28/2022 21:03:01 (ET). Electronically Signed: Sawyer Aguillon MD at 20:56 EDT , Assessment & Plan Assessment/Plan (1) Acute appendicitis: QUALIFIERS: Acute appendicitis type: unspecified acute appendicitis type Qualified Code(s): K35.80 - Unspecified acute appendicitis PLAN: Patient comes in with abdominal pain and nausea and vomiting. Her white count was normal and her left differential was at the upper limits of normal. CT scan revealed acute appendicitis with a retrocecal appendix. I discussed laparoscopic appendectomy with the patient in detail. I discussed the risks including but not limited to bleeding, infection, injury other organs such as the bowel, bladder, ureter. Patient understands the risks and is willing to proceedwith laparoscopic appendectomy. Patient was given Zosyn in the emergency room. I will remove her insulin pump and give her sliding scale insulin until discharge. Rahat Mccormack MD Pager: [facility] [address] [place] [address], [address] [place] [id number] Office: 09/28/222208 <Electronically signed by Rahat Mccormack MD> Cosigner Signature (if applicable): CC: Dr. Rahat Mccormack MD; Dr. Laura Steele MD~ Signed [facility] Work Phone: 1(220) 404-501706-22-[address] Linn [facility] September 28, 2022 10:06pm Note Date/Time September 28, 2022 6:47 pm [facility] Medical Records Department [address] [place] [address] Emergency Department Summary 09/28/22 MR#: [id number] Acct: [id number] Name: FAY LEES Rep #:[id number] : 1965 56 From: Scarlett Linn MD PCP: Dr. Laura Steele MD Status:R [facility] Location: [facility] History of Present Illness Chief Complaint: Abd Pain Informant: patient Onset/Context/Timing Onset: Yesterday Context: Gradual Onset Current Severity: Severe Maximum Severity: Severe Narrative Narrative: Patient presents with epigastric abdominal pain. She states pain started yesterday gradually throughout the day and is continued to worsen. She developed nausea and vomiting today. No fever or chills. No diarrhea. She does have type 1 diabetes and states her blood sugars have been good. She denies history of gallbladder problems or pancreatitis. [facility] Medical History Acute hematogenous osteomyelitis Anxiety and depression bilat eye surgery Breast cancer screening Charcot's joint of left foot Diabetes type 1, controlled Diabetic foot infection Dysmenorrhea great toe fusion History of endometrial biopsy Hyperlipidemia Hyperparathyroidism Hypothyroidism Needs flu shot nonhealing plantar l foot wound novasure Obesity open wound of toes Peripheral neuropathy Peripheral vascular disease of lower extremity PVD (peripheral vascular disease) Skin picking habit Home Medications cholecalciferol (vitamin D3) 125 mcg (5,000 unit) capsule 5,000 unit PO QDAY 03/15/17 [History Last Taken Unknown] insulin pump syringe 1.8 mL 01/23/18 [History Last Taken Unknown] blood-glucose meter,continuous (Dexcom G6 Retail Field Merchandiser) #1 ea 11/26/20 [Rx Last Taken Unknown] blood-glucose sensor (Dexcom G6 Sensor device) #9 ea 01/26/22 [Rx Last Taken Unknown] blood-glucose transmitter (Dexcom G6 Transmitter device) #1 ea 01/26/22 [Rx Last Taken Unknown] omeprazole 40 mg capsule,delayed release 40 mg PO DAILY #90 caps 02/09/22 [Rx Last Taken Unknown] simvastatin 20 mg tablet See Rx Instructions .Route .COMPLEX #90 tabs 05/02/22 [Rx Last Taken Unknown] insulin lispro 100 unit/mL subcutaneous solution (Humalog U-100 Insulin) 100 unit subcut .continuous #90 mL 06/29/22 [Rx Last Taken Unknown] enalapril maleate 5 mg tablet See Rx Instructions .Route .COMPLEX #90 tabs 07/20/22 [Rx Last Taken Unknown] levothyroxine 125 mcg tablet 125 mcg PO DAILY #90 tabs 07/20/22 [Rx Last Taken Unknown] fluoxetine 40 mg capsule 40 mg PO BID depression, hot flashes #180 caps 08/18/22[Rx Last Taken Unknown] insulin pump cart,cont inf,BT (Omnipod Dash Pods (Gen 4) subcutaneous cartridge)#30 ea 09/13/22 [Rx Last Taken Unknown] Allergy/AdvReac Type Severity Reaction Status Date / Time codeine AdvReac Vomiting Verified 09/28/22 18:23 Family History Mother Diabetes Father Diabetes Grandfather Diabetes Grandmother Diabetes Surgical History History of tonsillectomy Hx of adenoidectomy Hx of section Hx of tubal ligation S/P foot surgery, left S/P transmetatarsal amputation of foot Status post bilateral foot surgery Social History Smoking Status: Never smoker second hand exposure: No alcohol intake: current substance use type: does not use caffeine: Yes ROS ROS ED Constitutional Constitutional ED: Denies chills or fever(s) Eyes Eyes: Denies change in vision or discharge from eye(s) ENT ENT ED: Denies discharge from eye(s), rhinorrhea or sore throat Cardiovascular Cardiovascular: Denies chest pain or palpitations Respiratory/Chest Respiratory/Chest: Denies cough or dyspnea Gastrointestinal Gastrointestinal: Reports abdominal pain, nausea and vomiting; Denies diarrhea Genitourinary Genitourinary ED: Denies dysuria Musculoskeletal Musculoskeletal: Denies back pain or extremity pain Integumentary Denies Abrasions or rash Neurologic Neurologic: Denies headache(s) or weakness Psychiatric Psychiatric: Denies anxiety or depression Allergic/Immunologic Allergic/Immunologic ED: Denies lip swelling or urticaria EXAM Physical Exam Const Vital Signs: 09/28/22 18:23 09/28/22 18:59 09/28/22 20:42 Temperature 96 F L Temperature Source Temporal Pulse Rate 86 76 Respiratory Rate 14 Blood Pressure 181/77 H 123/62 H Blood Pressure Mean 111 82 Pulse Ox 98 97 96 Oxygen Delivery Method Room Air Room Air Positive well nourished and well developed General Appearance ED: well developed HEENT Reports dry mucous membranes Mouth ED: Yes dry mucous membranes Mouth: dry mucous membranes Eyes EOMs intact bilaterally Neck no lymphadenopathy Chest Wall inspection of chest normal and palpation of chest normal Resp normal respiratory effort and clear to auscultation bilaterally Cardio regular rate and regular rhythm GI GI Narrative: Focal tenderness in the epigastrium. No guarding or rebound. Hypoactive but present bowel sounds are noted. Extremity normal to inspection Neuro oriented x3 Psych Mood & Affect: anxious MDM MDM MDM Narrative Medical decision making narrative: Patient placed on research hydrologist. EKG obtained to evaluate for cardiac arrhythmia/ischemia. Labwork obtained to evaluate for leukocytosis, anemia, andelectrolyte derangement. Patient given morphine and Zofran along with IV fluids. Lab Data Attestation: I reviewed the patient's lab results. Labs: Laboratory Results - last 24 hr 09/28/22 09/28/22 09/28/22 18:40 18:40 19:04 WBC 8.2 RBC 4.14 L Hgb 12.2 Hct 36.5 L MCV 88.2 MCH 29.5 MCHC 33.4 RDW Std Deviation 41.1 RDW Coeff of Frank 12.8 Plt Count 218 MPV 10.3 Immature Gran % (Auto) 0.500 Neut % (Auto) 69.9 Lymph % (Auto) 20.8 Charles % (Auto) 6.8 Eos % (Auto) 1.3 Baso % (Auto) 0.7 Absolute Neuts (auto) 5.7 Absolute Lymphs (auto) 1.70 Nucleated RBC % 0 Sodium 139 Potassium 3.8 Chloride 105 Carbon Dioxide 22.0 Anion Gap 12 BUN 16 Creatinine 0.90 Estim Creat Clear Calc 61.71 Est GFR (MDRD) Af Amer 83 Est GFR (MDRD) Non-Af 69 BUN/Creatinine Ratio 17.7 Glucose 175 H Calcium 9.0 Total Bilirubin 0.50 Direct Bilirubin 0.14 AST 12 L ALT 20 Alkaline Phosphatase 90 Troponin I High Sens 4 Total Protein 7.3 Albumin 3.6 Globulin 3.7 Lipase 14 POC Glucose 174 H Radiography Diagnostic Testing: Clinical Impression(s) from Imaging Studies Abdomen/Pelvis CT 09/28/22 19:53 IMPRESSION: (NOT LISTED IN ORDER OF SIGNIFICANCE) Acute appendicitis. There is no evidence to suggest abscess formation. Other findings as above. Non standard communication findings protocol was initiated. Electronically Signed: Sawyer Aguillon MD at 20:56 EDT , ADDENDUM: 09/28/222108 IMPRESSION: (NOT LISTED IN ORDER OF SIGNIFICANCE) Acute appendicitis. There is no evidence to suggest abscess formation. Other findings as above. Non standard communication findings protocol was initiated. N.B. : The above Results were Read Back by Sawyer Aguillon MD to Scarlett Linn MD, and understanding confirmed on 09/28/2022 21:03:01 (ET). Electronically Signed: Sawyer Aguillon MD at 20:56 EDT , EKG Initial EKG: Attestation: I personally reviewed and interpreted this EKG as follows: Interpretation: Sinus Rhythm (Sinus at 82 with no acute ischemia.) Differential Diagnosis Chest pain/SOB: ACS ACS: Positive for no evidence of ACS based on cardiac biomarkers and EKG without ischemia Abdominal Pain: Cholecystitis Reason(s) Cholecystitis less likely: NL Gall Bladder on imagng studies, Pancreatitis Reason(s) Pancreatitis less likely: NL lab values and Bowel obstruction Reason(s) bowel obstruction less likely: no evidence of bowel obstruction on imaging studies Treatment and Re-Evaluation :: CBC is unremarkable with normal white count and no left shift. Chemistry studies normal. Glucose is 175. LFTs and lipase normal. Troponin is normal at4. EKG is sinus rhythm with no acute ischemia. On repeat evaluation patient isimproved but still uncomfortable. In light of this CT scan with IV contrast obtained. CT scan abdomen and pelvis reveals evidence of acute appendicitis. Test results are discussed with the patient and she is given a dose of Zosyn. Choi with Dr. Mccormack who will be in to see the patient with plan to go to the OR [facility]. Discharge Plan Triage Chief Complaint: Abd Pain ED Provider: Scarlett Linn Dx/Rx/DC Orders Clinical Impression: Acute appendicitis Prescriptions: No Action cholecalciferol (vitamin D3) 5,000 unit capsule 5,000 unit PO QDAY (DME) Dexcom G6 Sensor Device See Rx Instructions .ROUTE .MEDSUPPLY Qty: 9 3RF Rx Instructions: change every 10 days (DME) Dexcom G6 Transmitter Device See Rx Instructions .ROUTE .MEDSUPPLY Qty: 1 3RF Rx Instructions: As directed omeprazole 40 mg capsule,delayed release(DR/EC) 40 mg PO DAILY Qty: 90 3RF fluoxetine 40 mg capsule 40 mg PO BID Qty: 180 3RF (DME) insulin pump syringe 1 EACH misc 1 ea MC CONT (DME) Dexcom G6 Retail Field Merchandiser Misc See Rx Instructions .ROUTE .MEDSUPPLY Qty: 1 0RF Rx Instructions: As directed simvastatin 20 mg tablet See Rx Instructions .ROUTE .COMPLEX Qty: 90 3RF Dose Instruction: TAKE 1 TABLET BY MOUTH AT BEDTIME Rx Instructions: TAKE 1 TABLET BY MOUTH AT BEDTIME insulin lispro [Humalog U-100 Insulin] 100 unit/mL solution 100 unit SC .continuous Qty: 90 1RF Rx Instructions: viaInsulin Pump levothyroxine 125 mcg tablet 125 mcg PO DAILY Qty: 90 1RF enalapril maleate 5 mg tablet See Rx Instructions .ROUTE .COMPLEX Qty: 90 1RF Dose Instruction: TAKE 1 TABLET BY MOUTH EVERY DAY Rx Instructions: TAKE 1 TABLET BY MOUTH EVERY DAY (DME) Omnipod Dash Pods (Gen 4) Cartridge See Rx Instructions .Route Qty: 30 1RF Rx Instructions: change every 3 days Primary Care Provider: Laura Steele Referrals: Laura Steele MD [Primary Care Provider] - Disposition Disposition: Acute Care [facility] What to do if you have Problems For any increased pain, shortness of breath, bleeding, nausea or vomiting, chestpain, or any unexpected problems, contact your Primary Care Provider. Call [facility] ([phone]) or report to the closest Emergency Room. Call 911 if necessary. 09/28/222205 <Electronically signed by Scarlett Linn MD> Cosigner Signature (if applicable): CC: Dr. Laura Steele MD ~ Signed [facility] Work Phone: 1(153) 204-717906-21-2023 Procedure [facility] 09-28-[address] Linn [facility] September 28, 2022 10:06pm Note Date/Time September 28, 2022 6:47 pm [facility] Medical Records Department [address] [place] [address] Emergency Department Summary 09/28/22 MR#: [id number] Acct: [id number] Name: FAY LEES Rep #:[id number] : 1965 56 From: Scarlett Linn MD PCP: Dr. Laura Steele MD Status:R [facility] Location: [facility] History of Present Illness Chief Complaint: Abd Pain Informant: patient Onset/Context/Timing Onset: Yesterday Context: Gradual Onset Current Severity: Severe Maximum Severity: Severe Narrative Narrative: Patient presents with epigastric abdominal pain. She states pain started yesterday gradually throughout the day and is continued to worsen. She developed nausea and vomiting today. No fever or chills. No diarrhea. She does have type 1 diabetes and states her blood sugars have been good. She denies history of gallbladder problems or pancreatitis. [facility] Medical History Acute hematogenous osteomyelitis Anxiety and depression bilat eye surgery Breast cancer screening Charcot's joint of left foot Diabetes type 1, controlled Diabetic foot infection Dysmenorrhea great toe fusion History of endometrial biopsy Hyperlipidemia Hyperparathyroidism Hypothyroidism Needs flu shot nonhealing plantar l foot wound novasure Obesity open wound of toes Peripheral neuropathy Peripheral vascular disease of lower extremity PVD (peripheral vascular disease) Skin picking habit Home Medications cholecalciferol (vitamin D3) 125 mcg (5,000 unit) capsule 5,000 unit PO QDAY 03/15/17 [History Last Taken Unknown] insulin pump syringe 1.8 mL 01/23/18 [History Last Taken Unknown] blood-glucose meter,continuous (Dexcom G6 Retail Field Merchandiser) #1 ea 11/26/20 [Rx Last Taken Unknown] blood-glucose sensor (Dexcom G6 Sensor device) #9 ea 01/26/22 [Rx Last Taken Unknown] blood-glucose transmitter (Dexcom G6 Transmitter device) #1 ea 01/26/22 [Rx Last Taken Unknown] omeprazole 40 mg capsule,delayed release 40 mg PO DAILY #90 caps 02/09/22 [Rx Last Taken Unknown] simvastatin 20 mg tablet See Rx Instructions .Route .COMPLEX #90 tabs 05/02/22 [Rx Last Taken Unknown] insulin lispro 100 unit/mL subcutaneous solution (Humalog U-100 Insulin) 100 unit subcut .continuous #90 mL 06/29/22 [Rx Last Taken Unknown] enalapril maleate 5 mg tablet See Rx Instructions .Route .COMPLEX #90 tabs 07/20/22 [Rx Last Taken Unknown] levothyroxine 125 mcg tablet 125 mcg PO DAILY #90 tabs 07/20/22 [Rx Last Taken Unknown] fluoxetine 40 mg capsule 40 mg PO BID depression, hot flashes #180 caps 08/18/22[Rx Last Taken Unknown] insulin pump cart,cont inf,BT (Omnipod Dash Pods (Gen 4) subcutaneous cartridge)#30 ea 09/13/22 [Rx Last Taken Unknown] Allergy/AdvReac Type Severity Reaction Status Date / Time codeine AdvReac Vomiting Verified 09/28/22 18:23 Family History Mother Diabetes Father Diabetes Grandfather Diabetes Grandmother Diabetes Surgical History History of tonsillectomy Hx of adenoidectomy Hx of section Hx of tubal ligation S/P foot surgery, left S/P transmetatarsal amputation of foot Status post bilateral foot surgery Social History Smoking Status: Never smoker second hand exposure: No alcohol intake: current substance use type: does not use caffeine: Yes ROS ROS ED Constitutional Constitutional ED: Denies chills or fever(s) Eyes Eyes: Denies change in vision or discharge from eye(s) ENT ENT ED: Denies discharge from eye(s), rhinorrhea or sore throat Cardiovascular Cardiovascular: Denies chest pain or palpitations Respiratory/Chest Respiratory/Chest: Denies cough or dyspnea Gastrointestinal Gastrointestinal: Reports abdominal pain, nausea and vomiting; Denies diarrhea Genitourinary Genitourinary ED: Denies dysuria Musculoskeletal Musculoskeletal: Denies back pain or extremity pain Integumentary Denies Abrasions or rash Neurologic Neurologic: Denies headache(s) or weakness Psychiatric Psychiatric: Denies anxiety or depression Allergic/Immunologic Allergic/Immunologic ED: Denies lip swelling or urticaria EXAM Physical Exam Const Vital Signs: 09/28/22 18:23 09/28/22 18:59 09/28/22 20:42 Temperature 96 F L Temperature Source Temporal Pulse Rate 86 76 Respiratory Rate 14 Blood Pressure 181/77 H 123/62 H Blood Pressure Mean 111 82 Pulse Ox 98 97 96 Oxygen Delivery Method Room Air Room Air Positive well nourished and well developed General Appearance ED: well developed HEENT Reports dry mucous membranes Mouth ED: Yes dry mucous membranes Mouth: dry mucous membranes Eyes EOMs intact bilaterally Neck no lymphadenopathy Chest Wall inspection of chest normal and palpation of chest normal Resp normal respiratory effort and clear to auscultation bilaterally Cardio regular rate and regular rhythm GI GI Narrative: Focal tenderness in the epigastrium. No guarding or rebound. Hypoactive but present bowel sounds are noted. Extremity normal to inspection Neuro oriented x3 Psych Mood & Affect: anxious MDM MDM MDM Narrative Medical decision making narrative: Patient placed on research hydrologist. EKG obtained to evaluate for cardiac arrhythmia/ischemia. Labwork obtained to evaluate for leukocytosis, anemia, andelectrolyte derangement. Patient given morphine and Zofran along with IV fluids. Lab Data Attestation: I reviewed the patient's lab results. Labs: Laboratory Results - last 24 hr 09/28/22 09/28/22 09/28/22 18:40 18:40 19:04 WBC 8.2 RBC 4.14 L Hgb 12.2 Hct 36.5 L MCV 88.2 MCH 29.5 MCHC 33.4 RDW Std Deviation 41.1 RDW Coeff of Frank 12.8 Plt Count 218 MPV 10.3 Immature Gran % (Auto) 0.500 Neut % (Auto) 69.9 Lymph % (Auto) 20.8 Charles % (Auto) 6.8 Eos % (Auto) 1.3 Baso % (Auto) 0.7 Absolute Neuts (auto) 5.7 Absolute Lymphs (auto) 1.70 Nucleated RBC % 0 Sodium 139 Potassium 3.8 Chloride 105 Carbon Dioxide 22.0 Anion Gap 12 BUN 16 Creatinine 0.90 Estim Creat Clear Calc 61.71 Est GFR (MDRD) Af Amer 83 Est GFR (MDRD) Non-Af 69 BUN/Creatinine Ratio 17.7 Glucose 175 H Calcium 9.0 Total Bilirubin 0.50 Direct Bilirubin 0.14 AST 12 L ALT 20 Alkaline Phosphatase 90 Troponin I High Sens 4 Total Protein 7.3 Albumin 3.6 Globulin 3.7 Lipase 14 POC Glucose 174 H Radiography Diagnostic Testing: Clinical Impression(s) from Imaging Studies Abdomen/Pelvis CT 09/28/22 19:53 IMPRESSION: (NOT LISTED IN ORDER OF SIGNIFICANCE) Acute appendicitis. There is no evidence to suggest abscess formation. Other findings as above. Non standard communication findings protocol was initiated. Electronically Signed: Sawyer Aguillon MD at 20:56 EDT , ADDENDUM: 09/28/22 [id number] IMPRESSION: (NOT LISTED IN ORDER OF SIGNIFICANCE) Acute appendicitis. There is no evidence to suggest abscess formation. Other findings as above. Non standard communication findings protocol was initiated. N.B. : The above Results were Read Back by Sawyer Aguillon MD to Scarlett Linn MD, and understanding confirmed on 09/28/2022 21:03:01 (ET). Electronically Signed: Sawyer Aguillon MD at 20:56 EDT , EKG Initial EKG: Attestation: I personally reviewed and interpreted this EKG as follows: Interpretation: Sinus Rhythm (Sinus at 82 with no acute ischemia.) Differential Diagnosis Chest pain/SOB: ACS ACS: Positive for no evidence of ACS based on cardiac biomarkers and EKG without ischemia Abdominal Pain: Cholecystitis Reason(s) Cholecystitis less likely: NL Gall Bladder on imagng studies, Pancreatitis Reason(s) Pancreatitis less likely: NL lab values and Bowel obstruction Reason(s) bowel obstruction less likely: no evidence of bowel obstruction on imaging studies Treatment and Re-Evaluation :: CBC is unremarkable with normal white count and no left shift. Chemistry studies normal. Glucose is 175. LFTs and lipase normal. Troponin is normal at4. EKG is sinus rhythm with no acute ischemia. On repeat evaluation patient isimproved but still uncomfortable. In light of this CT scan with IV contrast obtained. CT scan abdomen and pelvis reveals evidence of acute appendicitis. Test results are discussed with the patient and she is given a dose of Zodakotah. Steph with Dr. Mccormack who will be in to see the patient with plan to go to the OR [facility]. Discharge Plan Triage Chief Complaint: Abd Pain ED Provider: Scarlett Linn Dx/Rx/DC Orders Clinical Impression: Acute appendicitis Prescriptions: No Action cholecalciferol (vitamin D3) 5,000 unit capsule 5,000 unit PO QDAY (DME) Dexcom G6 Sensor Device See Rx Instructions .ROUTE .MEDSUPPLY Qty: 9 3RF Rx Instructions: change every 10 days (DME) Dexcom G6 Transmitter Device See Rx Instructions .ROUTE .MEDSUPPLY Qty: 1 3RF Rx Instructions: As directed omeprazole 40 mg capsule,delayed release(DR/EC) 40 mg PO DAILY Qty: 90 3RF fluoxetine 40 mg capsule 40 mg PO BID Qty: 180 3RF (DME) insulin pump syringe 1 EACH misc 1 ea MC CONT (DME) Dexcom G6 Retail Field Merchandiser Misc See Rx Instructions .ROUTE .MEDSUPPLY Qty: 1 0RF Rx Instructions: As directed simvastatin 20 mg tablet See Rx Instructions .ROUTE .COMPLEX Qty: 90 3RF Dose Instruction: TAKE 1 TABLET BY MOUTH AT BEDTIME Rx Instructions: TAKE 1 TABLET BY MOUTH AT BEDTIME insulin lispro [Humalog U-100 Insulin] 100 unit/mL solution 100 unit SC .continuous Qty: 90 1RF Rx Instructions: viaInsulin Pump levothyroxine 125 mcg tablet 125 mcg PO DAILY Qty: 90 1RF enalapril maleate 5 mg tablet See Rx Instructions .ROUTE .COMPLEX Qty: 90 1RF Dose Instruction: TAKE 1 TABLET BY MOUTH EVERY DAY Rx Instructions: TAKE 1 TABLET BY MOUTH EVERY DAY (DME) Omnipod Dash Pods (Gen 4) Cartridge See Rx Instructions .Route Qty: 30 1RF Rx Instructions: change every 3 days Primary Care Provider: Laura Steele Referrals: Laura Steele MD [Primary Care Provider] - Disposition Disposition: [facility] What to do if you have Problems For any increased pain, shortness of breath, bleeding, nausea or vomiting, chestpain, or any unexpected problems, contact your Primary Care Provider. Call [facility] ([phone]) or report to the closest Emergency Room. Call 911 if necessary. 09/28/222205 <Electronically signed by Scarlett Linn MD> Cosigner Signature (if applicable): CC: Dr. Laura tSeele MD ~ Signed [facility] Work Phone: Evaluation + Plan note No data available for this section [facility] Evaluation note* Diagnosis Onset Date Resolution Status Upper respiratory infection acute Diabetes mellitus type I chr onic Diabetic polyneuropathy asso ciated with type 1 diabetes mellitus chronic Diabetic retinopathy associa [place] with type 1 diabetes mellitus chronic Hypothyroidism chronic Insulin pump titration chron ic Presence of insulin pump chr onic [facility] Work Phone: Evaluation note* Diagnosis Onset Date Resolution Status Upper respiratory infection acute Diabetes mellitus type I chr onic Diabetic polyneuropathy asso ciated with type 1 diabetes mellitus chronic Diabetic retinopathy associa [place] with type 1 diabetes mellitus chronic Hypothyroidism chronic Insulin pump titration chron ic Presence of insulin pump chr onic Breast cancer screening acut e Anxiety and depression chron ic Diabetes mellitus type I chr onic Hypertension chronic [facility] Work Phone: Evaluation note* Diagnosis Onset Date Resolution Status Diabetes mellitus type I chr onic Diabetic polyneuropathy asso ciated with type 1 diabetes mellitus chronic Diabetic retinopathy associa [place] with type 1 diabetes mellitus chronic Hypothyroidism chronic Insulin pump titration chron ic Presence of insulin pump chr onic Breast cancer screening acut e Anxiety and depression chron ic Diabetes mellitus type I chr onic Hypertension chronic [facility] Work Phone: Evaluation note* Diagnosis Onset Date Resolution Status Diabetes mellitus type I chr onic Diabetic polyneuropathy asso ciated with type 1 diabetes mellitus chronic Diabetic retinopathy ass[place] with type 1 diabetes mellitus chronic Hypothyroidism chronic Insulin pump titration chron ic Presence of insulin pump chr onic Breast cancer screening acut e Anxiety and depression chron ic Diabetes mellitus type I chr onic Hypertension chronic Shortness of breath noneacti ve Epigastric pain noneactive Chest pain noneactive [facility] Work Phone: Evaluation note* Diagnosis Onset Date Resolution Status Diabetes mellitus type I chr onic Hypertension chronic Hypothyroidism chronic Insulin pump titration chron ic Presence of insulin pump chr onic Needs flu shot acute Anxiety and depression chron ic Diabetes mellitus type I chr onic HLD (hyperlipidemia) chronic Hypertension chronic Hypothyroidism chronic [facility] Work Phone: Evaluation note* Diagnosis Onset Date Resolution Status Diabetes mellitus type I chr onic Diabetic retinopathy associa [place] with type 1 diabetes mellitus chronic HLD (hyperlipidemia) chronic Hypertension chronic Hypothyroidism chronic Insulin pump titration chron ic Obesity chronic Presence of insulin pump chr onic Anxiety and depression chron ic Hypertension chronic Skin picking habit chronic Acute appendicitis acute [facility] Work Phone: Evaluation note* Diagnosis Onset Date Resolution Status Diabetes mellitus type I chr onic Diabetic retinopathy associa [place] with type 1 diabetes mellitus chronic HLD (hyperlipidemia) chronic Hypertension chronic Hypothyroidism chronic Insulin pump titration chron ic Obesity chronic Presence of insulin pump chr onic Anxiety and depression chron ic Hypertension chronic Skin picking habit chronic Hyperglycemia acute Metabolic acidosis acute S/P laparoscopic appendectomy acute Diabetes mellitus type I chr onic Acute appendicitis resolved [facility] Work Phone: Evaluation note* Diagnosis Onset Date Resolution Status Diabetes mellitus type I chr onic Diabetic retinopathy associa [place] with type 1 diabetes mellitus chronic HLD (hyperlipidemia) chronic Hypertension chronic Hypothyroidism chronic Insulin pump titration chron ic Obesity chronic Presence of insulin pump chr onic Anxiety and depression chron ic Hypertension chronic Skin picking habit chronic Hyperglycemia acute Metabolic acidosis acute S/P laparoscopic appendectomy acute Diabetes mellitus type I chr onic Acute appendicitis resolved Right upper quadrant pain ac [place] [facility] Work Phone: Evaluation note* Diagnosis Onset Date Resolution Status Diabetes mellitus type I chr onic Diabetic retinopathy associa [place] with type 1 diabetes mellitus chronic HLD (hyperlipidemia) chronic Hypertension chronic Hypothyroidism chronic Insulin pump titration chron ic Obesity chronic Presence of insulin pump chr onic Anxiety and depression chron ic Hypertension chronic Skin picking habit chronic Hyperglycemia acute Metabolic acidosis acute S/P laparoscopic appendectomy acute Diabetes mellitus type I chr onic Acute appendicitis resolved Right upper quadrant pain ac [place] Diabetes mellitus type I chr onic HLD (hyperlipidemia) chronic Hypertension chronic Hypothyroidism chronic Obesity chronic Presence of insulin pump chr onic [facility] Work Phone: Evaluation note* Diagnosis Onset Date Resolution Status Anxiety and depression chron ic Hypertension chronic Skin picking habit chronic Hyperglycemia acute Metabolic acidosis acute S/P laparoscopic appendectomy acute Diabetes mellitus type I chr onic Acute appendicitis resolved Right upper quadrant pain ac [place] Diabetes mellitus type I chr onic HLD (hyperlipidemia) chronic Hypertension chronic Hypothyroidism chronic Obesity chronic Presence of insulin pump chr onic Health care maintenance acut e Anxiety and depression chron ic Hypothyroidism chronic Insomnia chronic [facility] Work Phone: Evaluation note* Diagnosis Onset Date Resolution Status Hyperglycemia acute Metabolic acidosis acute S/P laparoscopic appendectomy acute Diabetes mellitus type I chr onic Acute appendicitis resolved Right upper quadrant pain ac [place] Diabetes mellitus type I chr onic HLD (hyperlipidemia) chronic Hypertension chronic Hypothyroidism chronic Obesity chronic Presence of insulin pump chr onic Health care maintenance acut e Anxiety and depression chron ic Hypothyroidism chronic Insomnia chronic [facility] Work Phone: Evaluation note* Diagnosis Onset Date Resolution Status Health care maintenance acut e Anxiety and depression chron ic Hypothyroidism chronic Insomnia chronic Diabetes mellitus with diabetic polyneuropathy acute Non-pressure ulcer of left l ower extremity with fat layer exposed acute Tightness of left heel cord acute Chronic osteomyelitis of left foot chronic Diabetic infection of left foot acute Anxiety and depression chron ic Diabetes mellitus type I chr onic Hypertension chronic Insomnia chronic Diabetes mellitus with diabetic polyneuropathy acute Non-pressure ulcer of left l ower extremity with fat layer exposed acute Chronic osteomyelitis of left foot chronic [facility] Work Phone: Evaluation note* Diagnosis Onset Date Resolution Status Diabetes mellitus with diabetic polyneuropathy acute Non-pressure ulcer of left l ower extremity with fat layer exposed acute Tightness of left heel cord acute Chronic osteomyelitis of left foot chronic Diabetic infection of left foot acute Anxiety and depression chron ic Diabetes mellitus type I chr onic Hypertension chronic Insomnia chronic Diabetes mellitus with diabetic polyneuropathy acute Non-pressure ulcer of left l ower extremity with fat layer exposed acute Chronic osteomyelitis of left foot chronic Pain in left foot acute Preoperative evaluation to r ule out surgical contraindication acute Chronic osteomyelitis of left foot chronic [facility] Work Phone: Evaluation note* Diagnosis Onset Date Resolution Status Diabetes mellitus with diabetic polyneuropathy acute Non-pressure ulcer of left l ower extremity with fat layer exposed acute Tightness of left heel cord acute Chronic osteomyelitis of left foot chronic Diabetic infection of left foot acute Anxiety and depression chron ic Diabetes mellitus type I chr onic Hypertension chronic Insomnia chronic Diabetes mellitus with diabetic polyneuropathy acute Non-pressure ulcer of left l ower extremity with fat layer exposed acute Chronic osteomyelitis of left foot chronic Pain in left foot acute Preoperative evaluation to r ule out surgical contraindication acute Chronic osteomyelitis of left foot chronic 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 Diabetic polyneuropathy asso ciated with type 1 diabetes mellitus chronic Diabetic retinopathy [place] with type 1 diabetes mellitus chronic 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 Obesity chronic Pre-operative clearance acut e Chronic osteomyelitis of left foot chronic Hypothyroidism chronic [facility] Work Phone: Evaluation note* Diagnosis Onset Date Resolution Status Diabetes mellitus with diabetic polyneuropathy acute Non-pressure ulcer of left l ower extremity with fat layer exposed acute Tightness of left heel cord acute Chronic osteomyelitis of left foot chronic Diabetic infection of left foot acute Anxiety and depression chron ic Diabetes mellitus type I chr onic Hypertension chronic Insomnia chronic Diabetes mellitus with diabetic polyneuropathy acute Non-pressure ulcer of left l ower extremity with fat layer exposed acute Chronic osteomyelitis of left foot chronic Pain in left foot acute Preoperative evaluation to r ule out surgical contraindication acute Chronic osteomyelitis of left foot chronic 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 Diabetic polyneuropathy asso ciated with type 1 diabetes mellitus chronic Diabetic retinopathy [place] with type 1 diabetes mellitus chronic 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 Obesity chronic Pre-operative clearance acut e Chronic osteomyelitis of left foot chronic Hypothyroidism chronic Abdominal pain acute GERD (gastroesophageal reflux disease) acute Nausea acute [facility] Work Phone: Evaluation note* Diagnosis Onset Date Resolution Status Diabetes mellitus with diabetic polyneuropathy acute Non-pressure ulcer of left l ower extremity with fat layer exposed acute Tightness of left heel cord acute Chronic osteomyelitis of left foot chronic Diabetic infection of left foot acute Anxiety and depression chron ic Diabetes mellitus type I chr onic Hypertension chronic Insomnia chronic Diabetes mellitus with diabetic polyneuropathy acute Non-pressure ulcer of left l ower extremity with fat layer exposed acute Chronic osteomyelitis of left foot chronic Pain in left foot acute Preoperative evaluation to [place] out surgical contraindication acute Chronic osteomyelitis of left foot chronic 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 Diabetic polyneuropathy asso ciated with type 1 diabetes mellitus chronic Diabetic retinopathy [place] with type 1 diabetes mellitus chronic 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 Mccormack [facility] September 28, 2022 10:09pm Note Date/Time September 28, 2022 10:0 7pm [facility] Medical Records Department [address] [place] [address] H&P Exam - Surgical 09/28/22 2205 MR#: [id number] Acct: [id number] Name: FAY LEES Rep #:[id number] : 1965 56 From: Rahat frey MD PCP: Dr. Laura Steele MD Status:R [facility] Location: [facility] [place], [place] HPI - General HPI Narrative FAY LEES, is a 56 F who presents with epigastric pain and nausea and vomiting. Patient reports the pain started off-and-on on Monday but became worse yesterday. She reports that she is nauseous and she threw up on her way into the hospital today. She is currently nauseous and feel like she is going to throw up as well. She denies fevers or chills. Says the pain is all over her upper abdomen. [facility] Medical History Acute hematogenous osteomyelitis Anxiety and depression bilat eye surgery Breast cancer screening Charcot's joint of left foot Diabetes type 1, controlled Diabetic foot infection Dysmenorrhea great toe fusion History of endometrial biopsy Hyperlipidemia Hyperparathyroidism Hypothyroidism Needs flu shot nonhealing plantar l foot wound novasure Obesity open wound of toes Peripheral neuropathy Peripheral vascular disease of lower extremity PVD (peripheral vascular disease) Skin picking habit Home Medications cholecalciferol (vitamin D3) 125 mcg (5,000 unit) capsule 5,000 unit PO QDAY 03/15/17 [History Last Taken Unknown] insulin pump syringe 1.8 mL 01/23/18 [History Last Taken Unknown] blood-glucose meter,continuous (Dexcom G6 Retail Field Merchandiser) #1 ea 11/26/20 [Rx Last Taken Unknown] blood-glucose sensor (Dexcom G6 Sensor device) #9 ea 01/26/22 [Rx Last Taken Unknown] blood-glucose transmitter (Dexcom G6 Transmitter device) #1 ea 01/26/22 [Rx Last Taken Unknown] omeprazole 40 mg capsule,delayed release 40 mg PO DAILY #90 caps 02/09/22 [Rx Last Taken Unknown] simvastatin 20 mg tablet See Rx Instructions .Route .COMPLEX #90 tabs 05/02/22 [Rx Last Taken Unknown] insulin lispro 100 unit/mL subcutaneous solution (Humalog U-100 Insulin) 100 unit subcut .continuous #90 mL 06/29/22 [Rx Last Taken Unknown] enalapril maleate 5 mg tablet See Rx Instructions .Route .COMPLEX #90 tabs 07/20/22 [Rx Last Taken Unknown] levothyroxine 125 mcg tablet 125 mcg PO DAILY #90 tabs 07/20/22 [Rx Last Taken Unknown] fluoxetine 40 mg capsule 40 mg PO BID depression, hot flashes #180 caps 08/18/22[Rx Last Taken Unknown] insulin pump cart,cont inf,BT (Omnipod Dash Pods (Gen 4) subcutaneous cartridge)#30 ea 09/13/22 [Rx Last Taken Unknown] Allergy/AdvReac Type Severity Reaction Status Date / Time codeine AdvReac Vomiting Verified 09/28/22 18:23 Family History Mother Diabetes Father Diabetes Grandfather Diabetes Grandmother Diabetes Surgical History History of tonsillectomy Hx of adenoidectomy Hx of section Hx of tubal ligation S/P foot surgery, left S/P transmetatarsal amputation of foot Status post bilateral foot surgery Social History Smoking Status: Never smoker second hand exposure: No alcohol intake: current substance use type: does not use caffeine: Yes ROS Constitutional Constitutional: Denies anorexia, chills, fatigue or fever(s) Eyes Eyes: Denies blurry vision ENT HEENT: Denies abnormal hearing Cardiovascular Cardiovascular: Denies chest pain Respiratory/Chest Respiratory/Chest: Denies cough or dyspnea Gastrointestinal Gastrointestinal: Reports abdominal pain, nausea and vomiting; Denies constipation Genitourinary Genitourinary: Denies change in urinary stream Musculoskeletal Musculoskeletal: Denies abnormal gait Integumentary Integumentary: Denies jaundice Neurologic Neurologic: Denies abnormal gait Psychiatric Psychiatric: Denies anxiety Hematologic/Lymphatic Hematologic/Lymphatic: Denies easy bleeding Vital Signs Vital Signs Vital Signs: 09/28/22 18:23 09/28/22 18:59 09/28/22 20:42 Temperature 96 F L Temperature Source Temporal Pulse Rate 86 76 Respiratory Rate 14 Blood Pressure 181/77 H 123/62 H Blood Pressure Mean 111 82 Pulse Ox 98 97 96 Oxygen Delivery Method Room Air Room Air 09/28/22 21:37 Temperature 98 F Temperature Source Oral Pulse Rate 81 Respiratory Rate 18 Blood Pressure 146/72 H Blood Pressure Mean 96 Pulse Ox 98 Oxygen Delivery Method Room Air Weight Weight: 199 lb 11.821 oz Body Mass Index (BMI) 34.2 Physical Exam Const oriented x3 and no apparent distress Resp normal respiratory effort Cardio regular rate and regular rhythm GI soft to palpation Inspection: Negative for abdominal distention Palpation: tender periumbilical Results Lab / Micro Data Result Diagrams: 09/28/22 18:40 09/28/22 18:40 Labs: Laboratory Results - last 24 hr 09/28/22 18:40: WBC 8.2, RBC 4.14 L, Hgb 12.2, Hct 36.5 L, MCV 88.2, MCH 29.5, MCHC 33.4, RDW Std Deviation 41.1, RDW Coeff of Frank 12.8, Plt Count 218, MPV 10.3, Immature Gran % (Auto) 0.500, Neut % (Auto) 69.9, Lymph % (Auto) 20.8, Charles % (Auto) 6.8, Eos % (Auto) 1.3, Baso % (Auto) 0.7, Absolute Neuts (auto) 5.7, Absolute Lymphs (auto) 1.70, Nucleated RBC % 0 09/28/22 18:40: Sodium 139, Potassium 3.8, Chloride 105, Carbon Dioxide 22.0, Anion Gap 12, BUN 16, Creatinine 0.90, Estim Creat Clear Calc 61.71, Est GFR (MDRD) Af Amer 83, Est GFR (MDRD) Non-Af 69, BUN/Creatinine Ratio 17.7, Glucose 175 H, Calcium 9.0, Total Bilirubin 0.50, Direct Bilirubin 0.14, AST 12 L, ALT 20, Alkaline Phosphatase 90, Troponin I High Sens 4, Total Protein 7.3, Albumin 3.6, Globulin 3.7, Lipase 14 09/28/22 19:04: POC Glucose 174 H Radiology Impression Abdomen/Pelvis CT 09/28/22 19:53 IMPRESSION: (NOT LISTED IN ORDER OF SIGNIFICANCE) Acute appendicitis. There is no evidence to suggest abscess formation. Other findings as above. Non standard communication findings protocol was initiated. Electronically Signed: Sawyer Aguillon MD at 20:56 EDT Reading Location ID and State: [facility] / [place] , Service support , ADDENDUM: 09/28/222108 IMPRESSION: (NOT LISTED IN ORDER OF SIGNIFICANCE) Acute appendicitis. There is no evidence to suggest abscess formation. Other findings as above. Non standard communication findings protocol was initiated. N.B. : The above Results were Read Back by Sawyer Aguillon MD to Scarlett Linn MD, and understanding confirmed on 09/28/2022 21:03:01 (ET). Electronically Signed: Sawyer Aguillon MD at 20:56 EDT , Assessment & Plan Assessment/Plan (1) Acute appendicitis: QUALIFIERS: Acute appendicitis type: unspecified acute appendicitis type Qualified Code(s): K35.80 - Unspecified acute appendicitis PLAN: Patient comes in with abdominal pain and nausea and vomiting. Her white count was normal and her left differential was at the upper limits of normal. CT scan revealed acute appendicitis with a retrocecal appendix. I discussed laparoscopic appendectomy with the patient in detail. I discussed the risks including but not limited to bleeding, infection, injury other organs such as the bowel, bladder, ureter. Patient understands the risks and is willing to proceedwith laparoscopic appendectomy. Patient was given Zosyn in the emergency room. I will remove her insulin pump and give her sliding scale insulin until discharge. Rahat Mccormack MD Pager: [facility] [address] [place] [address], [address] [place] [address] Office: 09/28/[id number] <Electronically signed by Rahat Mccormack MD> Cosigner Signature (if applicable): CC: Dr. Rahat Mccormack MD; Dr. Laura Steele MD~ Signed [facility] Work Phone: Hospital Discharge instructions Additional Instructions 1. Please keep your surgical dressing clean dry and intact. Do not remove. Do not get it wet. 2. Continue rest, ice (behind your operative knee and elevate per your postoperative instructions that were given to you at the day of your surgical consultation while in office. 3. No weightbearing to left lower extremity. Full weightbearing to the right lower extremity. 4. Please take all pain medication and prescriptions as written. 5. If you are a diabetic patient please continue tight glucose control while in the postoperative phase. 6. Please continue to follow-up with all your doctors visits prior and after surgery. 7. Please reach out to Dr. Larsen, through the paging system in the hospital or private office with any questions or concerns. 8. Thank you for letting me be involved in your surgical care![facility] Work Phone: Hospital Discharge instructionsAmbulatory Orders* General Surgery Location: None Selected * [employer] Location: None Selected [facility] Work Phone: Progress note Author Dr. Beebe [facility] September 30, 2022 10:44am Note Date/Time September 30, 2022 10:4 4am [facility] Medical Records Department [address] [place] [address] Progress Note - Hospitalist 09/30/22 1040 MR#: [id number] Acct: [id number] Name: FAY LEES Rep #:[id number] : 1965 56 From: Stacy Beebe DO PCP: Dr. Laura Steele MD Status:A DM IN Location: [facility] [place] [id number] Reason for Visit Reason for Visit: Abdominal pain Subjective Subjective No issues overnight. Labs look good this morning. Patient anxious to go home. Awaiting Dr. Mccormack for discharge. Pump was placed this morning Objective Data Objective Data Vital Signs: Vital Signs Temp Pulse Resp BP Pulse Ox O2 Del Method O2 Flow Rate 98.2 F 92 18 154/62 H 98 Room Air 2 09/30/22 08:40 09/30/22 08:40 09/30/22 08:40 09/30/22 08:40 09/30/22 08:40 09/30/22 08:40 09/30/22 05:17 Oxygen Flow Rate (L/min) 2 Oxygen Delivery Method Room Air Weight: 95.6 kg Body Mass Index (BMI) 41.1 Intake & Output: Intake and Output for Last 24 Hours 09/28/22 09/29/22 09/30/22 23:59 23:59 23:59 Intake Total 0 / 2050 1494.25 / 1494.25 Output Total 600 / 600 200 / 200 Balance 1450 / 1450 1294.25 / 1294.25 Lab / Micro Data Result Diagrams: 09/29/22 06:14 09/30/22 06:00 Labs: Laboratory Results - last 24 hr 09/29/22 11:07: POC Glucose 163 H 09/29/22 14:37: Sodium 138, Potassium 4.4, Chloride 109 H, Carbon Dioxide 23.0, Anion Gap 6, BUN 23 H, Creatinine 1.02, Estim Creat Clear Calc 45.29, Est GFR (MDRD) Af Amer 72, Est GFR (MDRD) Non-Af 60, BUN/Creatinine Ratio 22.5 H, Glucose 139 H, Calcium 8.6 09/29/22 16:36: POC Glucose 115 H 09/29/22 21:33: POC Glucose 177 H 09/30/22 06:00: Sodium 138, Potassium 3.9, Chloride 110 H, Carbon Dioxide 20.0 L, Anion Gap 8, BUN 20 H, Creatinine 0.75, Estim Creat Clear Calc 61.59, Est GFR (MDRD) Af Amer 104, Est GFR (MDRD) Non-Af 86, BUN/Creatinine Ratio 26.8 H, Glucose 198 H, Calcium 8.4 L 09/30/22 06:28: POC Glucose 200 H Physical Exam Const alert, oriented x3, no apparent distress, healthy appearing and well nourished; Negative for average body habitus Constitutional Narrative: Morbidly obese, middle-aged, white female, sitting up in bed, watching television, appears comfortable and nontoxic, states that she placed her pump on this morning HEENT head/scalp atraumatic and moist oral mucous membranes Head and Scalp: normocephalic GI normal to inspection, nondistended, normoactive bowel sounds and soft to palpation GI Narrative: Mild tenderness at laparoscopic sites, dressings are clean dry and intact Neuro oriented x3, moves all extremities and no focal motor deficits Speech: speech normal Psych affect normal Psych Narrative: Pleasant, appropriately interactive Assessment & Plan Assessment/Plan (1) Metabolic acidosis: (2) Hyperglycemia: (3) Acute appendicitis: QUALIFIERS: Acute appendicitis type: unspecified acute appendicitis type Qualified Code(s): K35.80 - Unspecified acute appendicitis (4) Diabetes mellitus type I: QUALIFIERS: Diabetes mellitus complication status: with hyperglycemia Qualified Code(s): E10.65 - Type 1 diabetes mellitus with hyperglycemia PLAN: Plan Acute appendicitis -Postop day 2 laparoscopic appendectomy -Patient doing well -Management per primary service -Rating regular diet DM-1 with acute hyperglycemia -Acute hyperglycemia has resolved -Baseline hemoglobin A1c is 6.5 -Patient has replaced her pump -Okay for discharge Metabolic acidosis -Resolved Diabetic neuropathy/diabetic retinopathy -Patient takes no chronic medication for this Hypertension -Continue enalapril Hypothyroidism -Continue levothyroxine GERD -Continue PPI Vitamin D deficiency -Continue cholecalciferol 5000 units daily History of diabetic foot wounds -No current issues Depression Continue fluoxetine Morbid obesity -BMI is 41.2 -Complicates treatment, prognosis, outcomes DVT prophylaxis -Per primary service -SCDs for now CODE STATUS -Full code Charges/Coding Visit Charges Inpatient E&M: 54799 Subs Hosp L1 09/30/22 1044 <Electronically signed by Stacy Beebe DO> Cosigner Signature (if applicable): CC: ~ Signed [facility] Work Phone: Progress note Author Dr. Werner [facility] September 30, 2022 11:23am Note Date/Time September 30, 2022 11:2 3am [facility] Medical Records Department [address] [place] [id number] Progress Note - Surgery 09/30/22 1122 MR#: [id number] Acct: [id number] Name: FAY LEES Rep #:[id number] : 1965 56 From: Hanane Werner MD PCP: Dr. Laura Steele MD Status:A DM IN Location: [facility] [place] [id number] Subjective Subjective Patient is tolerating diet, denies any abdominal pain other than at the incisionwhich is controlled. Patient is ready go home. Objective Data Objective Data Vital Signs: Vital Signs Temp Pulse Resp BP Pulse Ox O2 Del Method O2 Flow Rate 98.2 F 92 18 154/62 H 98 Room Air 2 09/30/22 08:40 09/30/22 08:40 09/30/22 08:40 09/30/22 08:40 09/30/22 08:40 09/30/22 08:40 09/30/22 05:17 Oxygen Flow Rate (L/min) 2 Oxygen Delivery Method Room Air Weight: 210 lb 12.191 oz Body Mass Index (BMI) 41.1 Intake & Output: Intake and Output for Last 24 Hours 06/21/23 06/22/23 06/23/23 23:59 23:59 23:59 Intake Total 2049 1494.25 / 1494.25 Output Total 600 / 600 200 / 200 Balance 1450 / 1450 1294.25 / 1294.25 Lab / Micro Data Result Diagrams: 09/29/22 06:14 09/30/22 06:00 Labs: Laboratory Results - last 24 hr 09/29/22 11:07: POC Glucose 163 H 09/29/22 14:37: Sodium 138, Potassium 4.4, Chloride 109 H, Carbon Dioxide 23.0, Anion Gap 6, BUN 23 H, Creatinine 1.02, Estim Creat Clear Calc 45.29, Est GFR (MDRD) Af Amer 72, Est GFR (MDRD) Non-Af 60, BUN/Creatinine Ratio 22.5 H, Glucose 139 H, Calcium 8.6 09/29/22 16:36: POC Glucose 115 H 09/29/22 21:33: POC Glucose 177 H 09/30/22 06:00: Sodium 138, Potassium 3.9, Chloride 110 H, Carbon Dioxide 20.0 L, Anion Gap 8, BUN 20 H, Creatinine 0.75, Estim Creat Clear Calc 61.59, Est GFR (MDRD) Af Amer 104, Est GFR (MDRD) Non-Af 86, BUN/Creatinine Ratio 26.8 H, Glucose 198 H, Calcium 8.4 L 09/30/22 06:28: POC Glucose 200 H Physical Exam Resp normal respiratory effort Cardio regular rate GI GI Narrative: Abdomen: Soft, nondistended, tender near incision's dressed clean dry and intact, no peritoneal signs Assessment & Plan Assessment/Plan (1) S/P laparoscopic appendectomy: (2) Acute appendicitis: QUALIFIERS: Acute appendicitis type: unspecified acute appendicitis type Qualified Code(s): K35.80 - Unspecified acute appendicitis (3) Diabetes mellitus type I: QUALIFIERS: Diabetes mellitus complication status: with hyperglycemia Qualified Code(s): E10.65 - Type 1 diabetes mellitus with hyperglycemia PLAN: Plan Patient is tolerating diet. Incision are healing well clean dry and intact. Patient will follow-up with Dr. Mccormack in 1 to 2 weeks in office. Hanane Werner M.D. Pager: [phone] [facility] [address] [place] [address], [address] [place] [address] Office: [phone] 09/30/22 1123 <Electronically signed by Hanane Werner MD> Cosigner Signature (if applicable): CC: ~ Signed [facility] Work Phone: Reason for referral (narrative)No reason for referral information availableWSelect [facility] Work Phone: Summary Purpose Family History No Family History Records Found Relationship Condition Age at Onset Recorded Date/T peggy mother Diabetes mellitus Unknown father Diabetes mellitus Unknown grandfather Diabetes mellitus Unknown grandmother Diabetes mellitus Unknown Advance Directives No Advanced Directives Records Found Advance Directive Response Recorded Date/ Time Advance Directives No January 12, 2021 9:10am Living Will No January 12 1 9:10am Power of Lpn Rn No January 12 021 9:10am Advance Directive Response Recorded Date/ Time Advance Directives No August 31 2 2:37pm Living Will No August 31, 2021 2 :37pm Power of Lpn Rn No August 31, 2021 2:37pm Advance Directive Response Recorded Date/ Time Advance Directives No August 31 2 2:37pm Living Will No November 23 2 8:44pm Power of Lpn Rn No November 23 022 8:44pm Advance Directive Response Recorded Date/ Time Advance Directives No August 31 2 1:37pm Living Will No November 23 2 7:44pm Power of Lpn Rn No November 23 022 7:44pm Advance Directive Response Recorded Date/ Time Advance Directives No August 31 2 2:37pm Living Will No September 28, 2022 6:35pm Power of Lpn Rn No September 28 3 6:35pm Advance Directive Response Recorded Date/ Time Advance Directives No August 31 2 2:37pm Living Will No September 28, 2022 11:59pm Power of Lpn Rn No September 28 3 11:59pm Advance Directive Response Recorded Date/ Time Advance Directives No August 31 2 1:37pm Living Will No September 28, 2022 10:59pm Power of Lpn Rn No September 28 3 10:59pm Advance Directive Response Recorded Date/ Time Advance Directives No August 31 2 1:37pm Living Will Yes April 18 11:33am Power of Lpn Rn Yes April 18 11:33am Advance Directive Response Recorded Date/ Time Advance Directives No August 31 2:37pm Living Will Yes June 01 024 4:04pm Power of Lpn Rn Yes June 01, 2023 4:04pm Advance Directive Response Recorded Date/ Time Name of Medical Power of Lpn Rn EDGARD LEES June 01, 2023 4:04pm Advance Directives No August 31 2:37pm Living Will Yes June 01 4:04pm Power of Lpn Rn Yes June 01, 2023 4:04pm Advance Directive Response Recorded Date/ Time Living Will Yes June 01 4:04pm Do you have a Healthcare Power of Lpn Rn? Yes June 01, 2023 4:04pm Advance Directives No August 31 2:37pm Advance Directive Response Recorded Date/ Time Living Will Yes June 01 4:04pm Do you have a Healthcare Power of Lpn Rn? Yes June 01, 2023 4:04pm Do you have a Healthcare Power of Lpn Rn? Yes August 05, 2024 7:07am Advance Directives No August 31 2:37pm Advance Directive Response Recorded Date/ Time Advance Directives No August 31 2:37pm Chief Complaint and Reason for Visit Chief Complaint Sinus infection/ sor e throat/ ear ache 6 M FU (ERIKA at 2p) Reason for Visit Upper respiratory in fection Diabetes mellitus type I Diabetic polyneuropathy associated with type 1 diabetes mellitus Diabetic retinopathy associated with type 1 diabetes mellitus Hypothyroidism Insulin pump titration Presence of insulin pump Chief Complaint Sinus infection/ sor e throat/ ear ache 6 M FU (ERIKA at 2p) CHECK UP SCREENING Reason for Visit Upper respiratory in fection Diabetes mellitus type I Diabetic polyneuropathy associated with type 1 diabetes mellitus Diabetic retinopathy associated with type 1 diabetes mellitus Hypothyroidism Insulin pump titration Presence of insulin pump Breast cancer screening Anxiety and depression Diabetes mellitus type I Hypertension Chief Complaint 6 M FU (ERIKA at 2p) CHECK UP SCREENING Reason for Visit Diabetes mellitus ty pe I Diabetic polyneuropathy associated with type 1 diabetes mellitus Diabetic retinopathy associated with type 1 diabetes mellitus Hypothyroidism Insulin pump titration Presence of insulin pump Breast cancer screening Anxiety and depression Diabetes mellitus type I Hypertension Chief Complaint 6 M FU (ERIKA at 2p) CHECK UP SCREENING ALLERGIC REACTION Shortness of breath CHEST PAIN SOB Reason for Visit Diabetes mellitus ty pe I Diabetic polyneuropathy associated with type 1 diabetes mellitus Diabetic retinopathy associated with type 1 diabetes mellitus Hypothyroidism Insulin pump titration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
[2025-03-13] MEDS: Piperacil/Tazobactam 3.375 GM in 0.9% Normal Saline (50mL MB+) 50 ML IV (21:38)
--- NOTE | 2025-03-13 22:05 | NURSING ---
BG 170, pt receives 3u q hour
[2025-03-13] MEDS: INSULIN PUMP (SELF-ADMIN/POM) 1 EACH NOTE (22:37)
[2025-03-14] VITALS (20 sets, daily range): BP systolic 101–154; BP diastolic 51–89; PULSE 88–112; RESP 14–18; TEMP 36.1–36.9; O2SAT 84–99; BMI 36.3
--- NOTE | 2025-03-14 | FORE_PTH ---
PATIENT: BEAN LEES LOC: MS3 U#:[id number] AGE/SX: 59/F ROOM: [facility] RE03/13/[address]: Dr. Pito Blakely DO : 1965 BED: 1 DIS: 03/19/2025 SPEC #: [id number] RECD: 03/14/25 12:27 STATUS: SUGAR REDi #: [id number] MYKEL: 03/14/25 00:[address]: Chicho Banda DEPT: SURGICAL PATHOLOGY RECD BY: Renata Vale ENTERED: 03/14/25 13:29 SP TYPE: FOREIGN B OTHR DR: DO Dr. Arjun Jade MD Dr. Jeffrey Wunning, DPM Dr. Esvin Montemayor MD Tissues: FOREIGN BODY Procedures: Surgery Specimen Level I HEADER OPERATION: Incision and drainage hardware removal delayed primary closure PRE-OP DIAGNOSIS: Infection and inflammatory reaction due to internal fixation device of right fibula TISSUE SUBMITTED: A- Hardware from right ankle MICROSCOPIC DIAGNOSIS A. Right ankle, hardware, ankle, explant: - Metallic screws and plate (gross examination only). MICROSCOPIC DESCRIPTION Slides are reviewed. GROSS DESCRIPTION A. Received fresh labeled the patient's name and date of . Designated as hardware from RT ankle are 6 houser metallic screws, ranging 1.4 cm to 3.0 cm in length by an average of 0.6 cm in diameter; 1 screw is inscribed with [id number]; the remaining are devoid of grossly identifiable inscriptions. Additionally received is a 7.4 x 1.0 x 0.1 cm arriola metallic plate-like portion of hardware with 6 round holes, inscribed with [id number]. No sections are submitted. The specimen is for gross examination only. CT 03/14/2025 CPT:17967
--- NOTE | 2025-03-14 | NURSING ---
Pt notified to shut blood glucose monitor off. pt verbalized understanding
[2025-03-14] MEDS: 0.9% Normal Saline (1000mL) 1,000 ML 75 ML IV (00:09)
[2025-03-14] MEDS: Vancomycin HCl 1,000 MG in 0.9% Normal Saline (250mL Bag) 250 ML 250 MG IV ×2 (04:50→19:52)
[2025-03-14 05:12] LABS: Anion Gap 13 (5-15); BUN 10 mg/dL (4-19); BUN/Creat Ratio 14.3 RATIO (10-20); Calcium,Total 8.6 mg/dL (7.6-11.0); Carbon Dioxide 18.4 mmol/L (21.0-32.0); Chloride 105 mmol/L (98-108); Estimated Creatinine Clearance 105.68 ml/min (50-250); Glucose 182 mg/dL (70-99); Potassium 4.2 mmol/L (3.3-5.1)
[2025-03-14 05:47] LABS: Hematocrit 31.6 % (37-47); Hemoglobin 10.2 g/dL (12.0-15.0); Immature Granulocytes Count 0.060 X10^3/uL (0.0-0.0); Mean Corp Hgb Conc 32.3 g/dL (32-36); Mean Corpuscular Volume 89.0 fL (81-99); Mean Platelet Vol. 11.0 fl (6.2-12.0); NRBC Flagged by Analyzer 0 % (0-5); Platelet Count 220 K/mm3 (150-450); RBC Distribution Width CV 12.7 % (11.6-14.6); RBC Distribution Width SD 41.5 fl (35.1-43.9); Red Blood Count 3.55 M/mm3 (4.2-5.4); White Blood Count 9.8 K/mm3 (4.4-11.0)
[2025-03-14] MEDS: Piperacil/Tazobactam 3.375 GM in 0.9% Normal Saline (50mL MB+) 50 ML IV ×3 (06:07→22:05)
--- NOTE | 2025-03-14 06:54 | PCM.PN.SRG ---
Subjective Subjective Patient is a 59-year-old diabetic female seen at bedside today for evaluation of full-thickness wound and cellulitis to right lower extremity. Patient was admitted to the emergency room last night and and seen by Dr. Diaz for initial consultation evaluation. Patient was admitted and put on IV antibiotics. Radiographs show no concern for osteomyelitis however there is evidence of a deep tissue abscess with positive probe to hardware to the right lower extremity. Patient is currently n.p.o. for surgical washout and hardware removal today. She denies any pain to the right lower extremity. She denies trauma. Denies constitutional symptoms. Other pedal complaints at this time. Objective Data Objective Data Vital Signs: Vital Signs Temp Pulse Resp BP Pulse Ox O2 Del Method 98.1 F 90 18 107/62 94 Room Air 03/14/25 04:00 03/14/25 04:00 03/14/25 04:00 03/14/25 04:00 03/14/25 04:00 03/14/25 04:00 Oxygen Delivery Method Room Air Weight: 95.9 kg Body Mass Index (BMI) 36.3 Intake & Output: Intake and Output for Last 24 Hours 03/12/25 03/13/25 03/14/25 23:59 23:59 23:59 Intake Total 630 / 630 320 / 320 Balance 630 / 630 320 / 320 Lab / Micro Data 03/14/25 05:30 03/14/25 04:29 Labs: Laboratory Results - last 24 hr 03/13/25 14:06: WBC 11.2 H, RBC 3.48 L, Hgb 10.1 L, Hct 30.9 L, MCV 88.8, MCH 29.0, MCHC 32.7, RDW Std Deviation 42.4, RDW Coeff of Frank 13.0, Plt Count 200, MPV 10.9, ESR 34 H, Sodium 135, Potassium 4.1, Chloride 102, Carbon Dioxide 20.7 L, Anion Gap 13, BUN 12, Creatinine 0.72, Estim Creat Clear Calc 96.76, Est GFR (MDRD) Non-Af 97, BUN/Creatinine Ratio 16.1, Glucose 132 H, Calcium 8.9, C-React Prot Ext Range 92.00 H 03/13/25 17:10: POC Glucose 139 H 03/14/25 04:29: WBC Cancelled, Corrected WBC Cancelled, RBC Cancelled, Hgb Cancelled, Hct Cancelled, MCV Cancelled, MCH Cancelled, MCHC Cancelled, RDW Std Deviation Cancelled, RDW Coeff of Frank Cancelled, Plt Count Cancelled, MPV Cancelled, Immature Gran % (Auto) Cancelled, Neut % (Auto) Cancelled, Lymph % (Auto) Cancelled, [place] % (Auto) Cancelled, Eos % (Auto) Cancelled, Baso % (Auto) Cancelled, Absolute Neuts (auto) Cancelled, Absolute Lymphs (auto) Cancelled, Total Counted Cancelled, Neutrophils % (Manual) Cancelled, Band Neutrophils % Cancelled, Lymphocytes % (Manual) Cancelled, Monocytes % (Manual) Cancelled, Eosinophils % (Manual) Cancelled, Basophils % (Manual) Cancelled, Metamyelocytes % Cancelled, Myelocytes % Cancelled, Promyelocytes % Cancelled, Blast Cells % Cancelled, Plasma Cell % (Manual) Cancelled, Other Cells % Cancelled, Nucleated RBC % Cancelled, Nucleated RBCs/100 WBC Cancelled, Differential Comment Cancelled, Diff Path Review Cancelled, Hypersegmented Neuts Cancelled, Atypical Lymphocytes Cancelled, Reactive Lymphocytes Cancelled, Smudge Cells Cancelled, Toxic Granulation Cancelled, Toxic Vacuolation Cancelled, Dohle Bodies Cancelled, Eloise Rods Cancelled, Platelet Estimate Cancelled, Plt Morphology Comment Cancelled, RBC Morphology Cancelled 03/14/25 04:29: RBC Morphology Cancelled, Polychromasia Cancelled, Hypochromasia Cancelled, Basophilic Stippling Cancelled, Anisocytosis Cancelled, Microcytosis Cancelled, Macrocytosis Cancelled, Spherocytes Cancelled, Sickle Cells Cancelled, Target Cells Cancelled, Tear Drop Cells Cancelled, Ovalocytes Cancelled, Stomatocytes Cancelled, [place] Bodies Cancelled, [place] Cells Cancelled, Bite Cells Cancelled, Crenated Cell Cancelled, Acanthocytes (Spur) Cancelled, Rouleaux Cancelled, Schistocytes Cancelled, Sodium 136, Potassium 4.2, Chloride 105, Carbon Dioxide 18.4 L, Anion Gap 13, BUN 10, Creatinine 0.66 L, Estim Creat Clear Calc 105.68, Est GFR (MDRD) Non-Af 102, BUN/Creatinine Ratio 14.3, Glucose 182 H, Hemoglobin A1c 6.9 H, Calcium 8.6, TSH 7.830 H 03/14/25 05:30: WBC 9.8, RBC 3.55 L, Hgb 10.2 L, Hct 31.6 L, MCV 89.0, MCH 28.7, MCHC 32.3, RDW Std Deviation 41.5, RDW Coeff of Frank 12.7, Plt Count 220, MPV 11.0, Immature Gran % (Auto) 0.600, Neut % (Auto) 69.6, Lymph % (Auto) 19.3, [place] % (Auto) 9.6, Eos % (Auto) 0.4, Baso % (Auto) 0.5, Absolute Neuts (auto) 6.8, Absolute Lymphs (auto) 1.89, Nucleated RBC % 0 03/14/25 06:13: POC Glucose 158 H Micro: Microbiology 03/13/25 15:25 Wound - Ankle Gram Stain - Final Radiography Diagnostic Testing: Radiology Impression Ankle X-Ray 03/13/25 14:08 IMPRESSION: Prior ORIF of the distal tibia and fibula as described. Diffuse soft tissue swelling more prominent on the lateral aspect. Reading Location: [facility]- Rhythm Strip Rhythm Strip: Sinus Rhythm Rate: 98 Ectopy: None Physical Exam Narrative Vascular: DP and PT pulses are palpable to right lower extremity. CFT is brisk. Nonpitting edema appreciated to the right lower extremity. Blanchable erythema appreciated to the periwound of the full-thickness wound to the right lateral ankle. Skin temperature is warm to warm from proximal ankle to distal digit with mild increase in warmth to the lateral right ankle. Neurologic: Light touch is intact. Protective station is diminished. Dermatological: Evidence of a full-thickness wound to the right lateral ankle measuring 0.5 x 0.5 x 0.3 cm. Wound base is fibrogranular in nature. Positive probe to hardware. Scant purulent discharge is appreciated. No malodor or fluctuance. No palpable crepitus appreciated. Musculoskeletal: No pain to palpation of full-thickness wound right ankle. No pain with calf pressure. Assessment & Plan Assessment/Plan (1) Infection and inflammatory reaction due to internal fixation device of right fibula, initial encounter: PLAN: Patient was examined and evaluated. All findings were discussed with the patient. All questions were answered to the patient satisfaction. Right ankle x-ray (03/13/2025): Evidence of intact orthopedic hardware with no evidence of radiolucency backing out or breakage. Evidence of increase in soft tissue volume with noted defect appreciated to the distal fibula laterally. No soft tissue air or emphysema is appreciated. Surgical plan: Plan for incision and drainage, deep hardware removal with delayed primary closure to the right lower extremity. Please continue to keep patient n.p.o. tonight. Will add patient to follow cases today. Please clear patient medically with recommendations. WBC: 11.2 -> 9.8 HbA1c: 6.9 Glucose: 182 ESR: 34 CRP: 92.0 Deep culture: Gram stain, gram-positive cocci Medicine: On board, medical management, IV antibiotic Vancomycin and Zosyn Please reach out to Dr. Larsen of any question or concerns. Will plan for surgical intervention today, 03/14/2025. Thank you for letting me be involved in the patient care. (2) Cellulitis of right lower limb: (3) Diabetic foot infection:
--- NOTE | 2025-03-14 07:34 | OP.PCM_ITS ---
Operative Report (Standard) Operative Information Date of Procedure: 03/14/25 Pre-Operative Diagnosis: 1. Cellulitis, right lower extremity 2. Diabetic ulcer, right lower extremity 3. Infected orthopedic hardware, right lower extremity Post-Operative Diagnosis: Same as preoperative diagnosis Surgery/Procedure Performed: Procedure #1: Incision and drainage, right lower extremity Procedure #2: Removal of infected deep orthopedic hardware, right lower extremity Procedure #3: Delayed primary closure, right lower extremity rolls baker: Yes Director News: Catalina Rose PGY2 Tasks completed by optometry assistant: Retracting Additional assistant women's basketball coach?: No Type of Anesthesia: General and Local RN Documented Start/Stop Times: Operation Date: 03/14/25 13:15 Case Time Into Pre-Op 03/14/25 10:11 Anesthesia Start 03/14/25 11:00 Into Room 03/14/25 11:00 Procedure Start 03/14/25 11:21 Procedure End 03/14/25 12:29 Anesthesia End 03/14/25 12:37 Into Recovery 03/14/25 12:37 Out of Room 03/14/25 12:37 Procedure Start Time: 11:21 Procedure Stop Time: 12:29 Select all DRAINS/GRAFTS/IMPLANTS that apply: None Special Medications: Per anesthesia Estimated Blood Loss: 50 mL Fluids Replaced: Per anesthesia Specimen collected: Yes Description of specimen(s) removed: Deep tissue culture,m Bone culture sent to microbiology and pathology Description of surgery: Indications For Operation: Ms. Mckinney is a 59-year-old diabetic female who was admitted to [facility] for full-thickness wound and cellulitis to the right lower extremity. Patient was seen in the emergency room on 03/13/25. She presented with complaining of right lateral leg swelling and a full-thickness wound to the lateral malleolus. She has history of a ORIF ankle fracture that was performed in 2006 by an outside provider. Upon admission to the ED she had some leukocytosis with elevated ESR and CRP. Podiatry was consulted recommending a surgical intervention with hardware removal due to positive probe to hardware. Did discuss surgical intervention and complication with the patient. We both agreed to move forward with the above procedure to help decrease the likelihood of deep tissue infection with potentially loss of limb and potentially loss of life which she is understanding of. Chart reviewed and consent was signed. Due to concern for deep tissue infection it was deemed necessary at this time to take patient to operating room performed above procedure to remove the hardware, get deep tissue wound samples and bone to help heal the patient's full-thickness wound and decrease the likelihood of loss of limb. The nature of the problem, anticipated procedures, postop recovery/convalences and risk/complications include but not limited to infection, wound healing complications, digital amputation, hypertrophic scarring, numbness, tingling, chronic pain, CRPS, over and under correction, recurrence of deformity, DVT and or PE and the need for further surgery have been discussed in great detail with the patient. All questions have been answered to the patient's satisfaction. There are no guarantees given as to the outcome of the procedure. Description of Procedure: Under mild sedation, the patient was brought into the operating room and placed on the operating table in supine position. Once the patient was under general anesthesia with manage mask airway, the right lower extremity was blocked using approximately 15 cc 0.5% Marcaine plain. No tourniquet was used for this case. Next, the right lower extremity was prepped and draped in normal aseptic manner. Next, a timeout was then undertaken verifying the correct patient, extremity, visibility of preoperative markings, availability of the equipment. Procedure #1: Incision and drainage, right lower extremity (CPT code: 55205) Next, attention was directed to the right lower extremity at the level of the full-thickness wound. There showed evidence of blanchable erythema to the level of the full-thickness wound on the lateral malleolus. There was positive probe to hardware as well as probe to bone. The old incision was marked out using a sterile skin marker. Next using a #15 blade a full-thickness tissue down to subcutaneous tissue was performed. Continue sharp dissection was carried down to the level of the bone exposing the orthopedic hardware. Upon dissection there is evidence of some scant purulent drainage with sanguinous drainage. No real malodor was appreciated. The area was flushed with copious amounts of normal saline. Procedure #2: Removal of infected deep orthopedic hardware, right lower extremity (CPT code: 96449) Next, complete exposure of the orthopedic hardware was obtained with sharp and blunt dissection. Using the Synthes hardware removal set, all screws along the plate, the interfrag screw and the lateral plate were removed and passed the back table to be sent off for pathology. After removal of the hardware there is evidence of hypertrophied bone which was smoothed out with hand rasp. Next using the pulse lavage 6000 mL of warm saline with a pulsed at the level of the full-thickness wound throughout the incision. After the pulse lavage was completed post lavage cultures were taken and passed the back table to be sent off for microbiology culture and sensitivity. Next a bone culture was taken from the distal fibula that was soft in nature and passed the back table to be sent off for microbiology and culture and sensitivity. Let it be noted that there was evidence of soft distal fibula which was palpated with pickups concerning for osteomyelitis. Procedure #3: Delayed primary closure, right lower extremity (CPT code: 16467) Next, the deep layer was reapproximated closed with 2-0 Vicryl in a running locking suture technique. The subcutaneous layer was reapproximated and closed with 2-0 Vicryl in running suture technique. The skin layer was reapproximated closed using 2-0 nylon in horizontal mattress suture technique. The full- thickness wound was closed via delayed primary closure with 2-0 nylon in simple interrupted suture technique. The right lower extremity was wiped clean and patted dry. The incisions as well as the delayed primary closure full-thickness wound was dressed with Betadine soaked Adaptic dry sterile dressing and a double layer Paulino compression bandage was donned to the right lower extremity. The patient tolerated the procedure and anesthesia well and apparent satisfactory condition and was transported to the PACU for further monitoring prior to discharge back to the floor. Vital signs stable and vascular status intact to all digits bilateral. Post Operative Plan: Weightbearing: Patient can be partial weightbearing to the right lower extremity with assistance of walker and or crutches. Full weightbearing left lower extremity. Antibiotics: Scheduled antibiotics on the floor, vancomycin and Zosyn DVT Prophylaxis: Per medicine Borrero: None Dressing: Betadine soaked Adaptic, dry sterile dressing, double layer Paulino dressing right lower extremity. X-Rays: Post-operative films taken on the operating room. Pain Medication: Per medicine Follow-up: Patient will follow-up in private office 1 week post discharge Surgical Findings: 1. Complete removal of the orthopedic hardware to the level of the lateral malleolus. 2. Evidence of soft bone with palpation with pickups to the distal fibula concern for osteomyelitis. Complications Complications: No Admit VTE Documentation VTE Present on Admission: No VTE Mechan Device Prophylaxis: SCD's VTE Pharm Prophylaxis ordered?: Yes
--- NOTE | 2025-03-14 08:07 | PN.HOSP_ITS ---
Reason for Visit Chief Complaint: right ankle swelling. Subjective Subjective Patient is a 59-year-old lady with history of diabetes mellitus type 1 on an insulin pump who presented with right ankle swelling. Patient has underlying history of right ankle hardware following ankle fracture almost 25 years ago. And assessment of possible hardware infection. Admitted to regular nursing floor started on broad-spectrum antibiotic therapy consult placed to podiatry Objective Data Objective Data Vital Signs: Vital Signs Temp Pulse Resp BP Pulse Ox O2 Del Method 98.1 F 90 18 107/62 94 Room Air 03/14/25 04:00 03/14/25 04:00 03/14/25 04:00 03/14/25 04:00 03/14/25 04:00 03/14/25 04:00 Oxygen Delivery Method Room Air Weight: 95.9 kg Body Mass Index (BMI) 36.3 Intake & Output: Intake and Output for Last 24 Hours 03/12/25 03/13/25 03/14/25 23:59 23:59 23:59 Intake Total 630 / 630 320 / 320 Balance 630 / 630 320 / 320 Lab / Micro Data 03/14/25 05:30 03/14/25 04:29 Labs: Laboratory Results - last 24 hr 03/13/25 14:06: WBC 11.2 H, RBC 3.48 L, Hgb 10.1 L, Hct 30.9 L, MCV 88.8, MCH 29.0, MCHC 32.7, RDW Std Deviation 42.4, RDW Coeff of Frank 13.0, Plt Count 200, MPV 10.9, ESR 34 H, Sodium 135, Potassium 4.1, Chloride 102, Carbon Dioxide 20.7 L, Anion Gap 13, BUN 12, Creatinine 0.72, Estim Creat Clear Calc 96.76, Est GFR (MDRD) Non-Af 97, BUN/Creatinine Ratio 16.1, Glucose 132 H, Calcium 8.9, C-React Prot Ext Range 92.00 H 03/13/25 17:10: POC Glucose 139 H 03/14/25 04:29: WBC Cancelled, Corrected WBC Cancelled, RBC Cancelled, Hgb Cancelled, Hct Cancelled, MCV Cancelled, MCH Cancelled, MCHC Cancelled, RDW Std Deviation Cancelled, RDW Coeff of Frank Cancelled, Plt Count Cancelled, MPV Cancelled, Immature Gran % (Auto) Cancelled, Neut % (Auto) Cancelled, Lymph % (Auto) Cancelled, [place] % (Auto) Cancelled, Eos % (Auto) Cancelled, Baso % (Auto) Cancelled, Absolute Neuts (auto) Cancelled, Absolute Lymphs (auto) Cancelled, Total Counted Cancelled, Neutrophils % (Manual) Cancelled, Band Neutrophils % Cancelled, Lymphocytes % (Manual) Cancelled, Monocytes % (Manual) Cancelled, Eosinophils % (Manual) Cancelled, Basophils % (Manual) Cancelled, Metamyelocytes % Cancelled, Myelocytes % Cancelled, Promyelocytes % Cancelled, Blast Cells % Cancelled, Plasma Cell % (Manual) Cancelled, Other Cells % Cancelled, Nucleated RBC % Cancelled, Nucleated RBCs/100 WBC Cancelled, Differential Comment Cancelled, Diff Path Review Cancelled, Hypersegmented Neuts Cancelled, Atypical Lymphocytes Cancelled, Reactive Lymphocytes Cancelled, Smudge Cells Cancelled, Toxic Granulation Cancelled, Toxic Vacuolation Cancelled, Dohle Bodies Cancelled, Eloise Rods Cancelled, Platelet Estimate Cancelled, Plt Morphology Comment Cancelled, RBC Morphology Cancelled 03/14/25 04:29: RBC Morphology Cancelled, Polychromasia Cancelled, Hypochromasia Cancelled, Basophilic Stippling Cancelled, Anisocytosis Cancelled, Microcytosis Cancelled, Macrocytosis Cancelled, Spherocytes Cancelled, Sickle Cells Cancelled, Target Cells Cancelled, Tear Drop Cells Cancelled, Ovalocytes Cancelled, Stomatocytes Cancelled, Cifuent[place] Bodies Cancelled, Verena Cells Cancelled, Bite Cells Cancelled, Crenated Cell Cancelled, Acanthocytes (Spur) Cancelled, Rouleaux Cancelled, Schistocytes Cancelled, Sodium 136, Potassium 4.2, Chloride 105, Carbon Dioxide 18.4 L, Anion Gap 13, BUN 10, Creatinine 0.66 L, Estim Creat Clear Calc 105.68, Est GFR (MDRD) Non-Af 102, BUN/Creatinine Ratio 14.3, Glucose 182 H, Hemoglobin A1c 6.9 H, Calcium 8.6, TSH 7.830 H 03/14/25 05:30: WBC 9.8, RBC 3.55 L, Hgb 10.2 L, Hct 31.6 L, MCV 89.0, MCH 28.7, MCHC 32.3, RDW Std Deviation 41.5, RDW Coeff of Farnk 12.7, Plt Count 220, MPV 11.0, Immature Gran % (Auto) 0.600, Neut % (Auto) 69.6, Lymph % (Auto) 19.3, [place] % (Auto) 9.6, Eos % (Auto) 0.4, Baso % (Auto) 0.5, Absolute Neuts (auto) 6.8, Absolute Lymphs (auto) 1.89, Nucleated RBC % 0 03/14/25 06:13: POC Glucose 158 H Micro: Microbiology 03/13/25 15:25 Wound - Ankle Gram Stain - Final Radiography Diagnostic Testing: Radiology Impression Ankle X-Ray 03/13/25 14:08 IMPRESSION: Prior ORIF of the distal tibia and fibula as described. Diffuse soft tissue swelling more prominent on the lateral aspect. Reading Location: [place] [id number] Rhythm Strip Rhythm Strip: Sinus Rhythm Rate: 98 Ectopy: None Physical Exam Narrative GENERAL: cooperative HEENT: Atraumatic; normocephalic EYES; Anicteric, Normal Conjunctiva NECK; supple, normal thyroid, RESPIRATORY: Diminished to auscultation CARDIOVASCULAR: Regular S1 S2, GI: soft, normoactive bowel sounds, : No Renal angle tenderness; EXTREMITIES: Area of ulceration on the right lateral malleolus MUSCULOSKELETAL: no muscle wasting NEURO: Awake; no lateralizing signs. SKIN: No Rash PSYCH; Flat affect Assessment & Plan Assessment/Plan (1) Diabetic foot infection: PLAN: Plan Patient is a 59-year-old lady with history of diabetes mellitus type 1 on an insulin pump who presented with right ankle swelling. Patient has underlying history of right ankle hardware following ankle fracture almost 25 years ago. And assessment of possible hardware infection. Admitted to regular nursing floor started on broad-spectrum antibiotic therapy consult placed to podiatry 1. Diabetic foot infection ? Possibly involving the hardware. Patient started on Zosyn as well as vancomycin culture sent. Consult placed to podiatry and ID on admission 2. Diabetes mellitus type 1 controlled ? Patient is on insulin pump plan is to continue 3. Class II obesity with BMI of 36.3 ? Complicating care weight loss advised 4. Dyslipidemia ?Patient is on statin therapy, continued at home dose 5. Hypothyroidism ? Patient is on levothyroxine home dose continued 6. Hypertension ? Blood pressure controlled, home medications continued with dose adjustment as needed 7. Depression with anxiety ? Patient is on duloxetine 8. Anemia ? Secondary to chronic disorder monitoring H&H and transfuse if patient becomes symptomatic or hemoglobin falls below 7 9. DVT prophylaxis ? SCDs for now Time spent in the patient's overall evaluation,decision-making process, review of diagnostic data, adjustment of management, discussion with other providers, nursing nursing and ancillary staff involved in patient's care documentation, 40 Minutes Charges/Coding Visit Charges Inpatient E&M: 40346 Subs Hosp L2
--- NOTE | 2025-03-14 09:53 | PCM.PRE.AN2 ---
ASA Classification* ASA Classification ASA Classification: 3 Assessment & Plan Anesthesia* Anesthesia Assessment Anesthesia Assessment: Discussed sedation and/or anesthesia options, risks, benefits, and alternatives with patient/parents/legal guardian/POA. Questions invited. The patient/parents/legal guardian/POA seems to understand and agrees to proceed with anesthesia plan. Reviewed the physical assessment, medical history, allergy history and patient home medications list prior to surgery/procedure/anesthetic and documented any changes. Performed airway and anesthesia risk assessments. Anesthesia Type Anesthesia Type: General (Patient informed her TSH elevated, patient said will F/up Primary care/Thyroid meds .) Anesthesia Focused Assessment* Temperature: 98.1 F Pulse Rate: 90 Blood Pressure: 107/62 Respiratory Rate: 18 Pulse Ox: 94 Airway Assessment Mouth opens: >3 cm Mallampati Score: II Labs Anesthesia Preop lab: CBC WBC, (4.4-11.0) 9.8 K/mm3 Today, 05:30 RBC, (4.2-5.4) 3.55 M/mm3 L Today, 05:30 Hgb, (12.0-15.0) 10.2 g/dL L Today, 05:30 Hct, (37-47) 31.6 % L Today, 05:30 Plt Count, (150-450) 220 K/mm3 Today, 05:30 CHEMISTRY Potassium, (3.3-5.1) 4.2 mmol/L Today, 04:29 Sodium, (133-145) 136 mmol/L Today, 04:29 Magnesium, (1.6-2.6) 2.4 mg/dL 06/08/23, 08:02 Phosphorus, (2.5-4.9) 1.4 mg/dL L 12/25/12, 12:52 BUN, (4-19) 10 mg/dL Today, 04:29 Creatinine, (0.70-1.20) 0.66 mg/dL L Today, 04:29 Glucose, (70-99) 182 mg/dL H Today, 04:29 POC Glucose, (74-106) 158 mg/dL H Today, 06:13 TSH, (0.300-4.200) 7.830 uIU/mL H Today, 04:29 COAG PT, (11.7-14.9) 12.3 SECONDS 10/29/24, 14:26 Pre-Assessment Diagnosis/Proposed Procedure Planned Operative Procedure(s): Rt ankle hardware removal, I&D Anesthesia History 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 When Was Last Pacemaker Check QUESTION #4 FULL TEXT: You/Your Family Experience fever (hyperthermia) with Anesthesia Last Oral Intake Last Oral intake: Last Oral Intake NPO since Meds taken in AM with sips of water? Meds patient instructed to take am of surgery PONV PONV - financial operations analyst: PONV - financial operations analyst Female HX of Motion Sickness HX of N/V After Surgery Non-Smoker Duration of Surgery greater than 60 minutes Number of Risk Factors PONV Score Height & Weight Height & Weight: Anesthesia: Height & Weight Height 5 ft 4 in 03/13/25 16:41 Weight: 95.9 kg 03/13/25 16:41 Body Mass Index (BMI) 36.3 03/13/25 16:41 Respiratory Assessment Respiratory Assessment - financial operations analyst: Respiratory Tract Infection Hx - financial operations analyst Hx Respiratory Tract Infection No 03/13/25 17:01 STOP Sleep Apnea STOP Sleep Apnea - financial operations analyst: STOP Sleep Apnea - financial operations analyst Hx Hypertension Yes: CONTROLLED WITH MED 03/13/25 16:49 Hx Sleep Apnea No 03/13/25 16:49 CPAP No 03/13/25 16:49 BIPAP No 03/13/25 16:49 Do you snore loudly (louder Yes 03/13/25 16:49 than talking or can be heard Do you often feel tired/ No 03/13/25 16:49 fatigued/ sleepy during daytime? Has anyone observed you stop No 03/13/25 16:49 breathing during sleep? STOP Results Positive 03/13/25 16:49 QUESTION #5 FULL TEXT : Do you snore loudly (louder than talking or can be heard through closed doors)? Tobacco Use History Tobacco Use History - financial operations analyst: Tobacco Use History - financial operations analyst Tobacco Use Non-smoker 08/31/21 14:37 Smoking Status Never smoker 03/13/25 16:49 Hx Tobacco Use No 03/13/25 16:49 Years Smoking Packs Smoked per Day Smoking Cessation Date was within the last 15 years Hx Smoking Cessation Date Hx Smoking Cessation Counseling Hematologic Medial History Hematologic Hx - financial operations analyst: Hematologic Medical Hx - planning feeder Hx of Blood Transfusion No 03/13/25 16:49 Hx of Transfusion in last 3 No 03/13/25 16:49 Months Date of Last Transfusion (if within last 3 months) Ever experience any problems No 03/13/25 16:49 with transfusion(s)? Specify any problems Hx of Preganancy in last 3 No 03/13/25 16:49 Months Nurse Filling Out Transfusion SHESS 03/13/25 16:49 & Questions: Date: 03/13/25 03/13/25 16:49 Time: 16:52 03/13/25 16:49 Patient unable to answer at this time (ie. confused, unrespo /Reproduction History /Reproductive History - financial operations analyst: /Reproductive Hx- financial operations analyst Hx Now No 03/13/25 17:01 Gestational Age (in weeks): EDC: Hx Hx Para Hx Section SAB No 03/13/25 17:01 Does the father of the baby or his family experience fever w Father of the baby Malignant Hypertension history comment Active Medications Active Medications: Current Medications Generic Name Dose Route Start Last Admin Trade Name Freq PRN Reason Stop Dose Admin Acetaminophen 650 mg 03/13/25 16:32 03/13/25 23:55 Acetaminophen 325 Mg Tablet PO 650 mg Q4H PRN PRN Administration Pain 1-10/Fever Ascorbic Acid 1,000 mg 03/14/25 10:00 03/14/25 09:39 Ascorbic Acid 500 Mg Tablet PO Not Given DAILY AMY Atorvastatin Calcium 10 mg 03/13/25 22:00 03/13/25 21:36 Atorvastatin Calcium 10 Mg Tablet PO 10 mg QHS AMY Administration Buspirone HCl 5 mg 03/13/25 22:00 03/14/25 06:07 Buspirone 5 Mg Tablet PO 5 mg TID AMY Administration Duloxetine HCl 30 mg 03/13/25 22:00 03/14/25 09:39 Duloxetine Hcl 30 Mg Capsule PO Not Given BID AMY Glucagon 1 mg 03/13/25 21:29 Glucagon 1 Mg/Ml Syringe IM X1 PRN Hypoglycemia Protocol Hydroxyzine Pamoate 25 mg 03/13/25 16:32 Hydroxyzine Francoise 25 Mg Capsule PO PRN PRN ANXIETY Sodium Chloride 1,000 mls @ 75 mls/hr 03/14/25 00:01 03/14/25 09:00 IV 03/14/25 13:20 0 mls/hr .[id number] AMY Infusion Piperacillin Sod/Tazobactam 50 mls @ 12.5 mls/hr 03/13/25 22:00 03/14/25 08:59 Sod 3.375 gm/ Sodium Chloride IV 0 mls/hr Q8 AMY Infusion Vancomycin IV-PHARMACY TO DOSE 500 mls @ 250 mls/hr 03/13/25 16:32 1 each/ Sodium Chloride IV X1 PRN Rx to Dose Protocol Sodium Chloride 250 mls @ 15 mls/hr 03/13/25 16:33 IV .[id number] PRN Saline Flush Sodium Chloride 250 mls @ 15 mls/hr 03/13/25 16:33 IV .[id number] PRN Additional IVPB Infusion Vancomycin HCl 1,000 mg/ 270 mls @ 250 mls/hr 03/14/25 05:00 03/14/25 06:10 Sodium Chloride IV Infused Q12H AMY Infusion Dextrose 250 mls @ 0 mls/hr 03/13/25 21:29 Dextrose 10%-Water IV .Q0M PRN HYPOGLYCEMIA Protocol As Directed Insulin Glargine 20 unit 03/13/25 16:32 03/14/25 09:45 Insulin Glargine-Yfgn 100 Unit/Ml Pen SC Not Given DAILY [facility] Insulin Human Regular 0 unit 03/13/25 21:29 Insulin Pump Refill (Pt's Own) 100 Unit/Ml Vial MC UD PRN Insulin Pump Refill Levothyroxine Sodium 125 mcg 03/14/25 06:00 03/14/25 06:07 Levothyroxine 125 Mcg Tablet PO 125 mcg DAILY@0600 AMY Administration Lisinopril 5 mg 03/14/25 10:00 03/14/25 09:39 Lisinopril 5 Mg Tablet PO Not Given DAILY [facility] Protocol Morphine Sulfate 2 - 4 mg 03/13/25 16:32 Morphine 2 Mg/Ml Syringe IV Q3H PRN PRN Pain Score 6-10 Ondansetron HCl 4 mg 03/13/25 16:32 Ondansetron Odt 4 Mg Tablet PO Q8H PRN nausea and vomiting Ondansetron HCl 4 mg 03/13/25 16:32 Ondansetron 4 Mg/2 Ml Vial IV Q8H PRN PRN NAUSEA/VOMITING Oxycodone HCl 2.5 - 5 mg 03/13/25 16:32 Oxycodone 5 Mg Tablet PO Q4H PRN PRN Pain Score 4-10 Pantoprazole Sodium 40 mg 03/13/25 22:00 03/14/25 09:39 Pantoprazole Sodium 40 Mg Tablet PO Not Given BID [facility] Sodium Chloride 10 - 40 ml 03/13/25 16:33 0.9% Saline Lock 10 Ml Syringe IV UD PRN SALINE FLUSH Trazodone HCl 25 mg 03/13/25 16:32 Trazodone 50 Mg Tablet PO QHS PRN INSOMNIA Vancomycin Protocol 1 lab 03/15/25 03:30 Vancomycin Trough/Random Due MC 03/15/25 05:30 DAILY [facility] PFSH Medical History Restless legs High cholesterol Chronic back pain Trigger finger Left hip pain Chest pain, atypical Anemia Flatulence Bilateral knee pain Colon cancer screening GERD (gastroesophageal reflux disease) Nausea Abdominal pain Wears glasses Anxiety Alcohol use Open wound Insulin dependent diabetes mellitus Uses wheelchair Dietary restriction Gastric reflux Non-smoker Shortness of breath on exertion Leg cramps History of edema Hypertension Preoperative evaluation to rule out surgical contraindication Health care maintenance Insomnia Skin picking habit Needs flu shot Breast cancer screening Anxiety and depression Obesity novasure bilat eye surgery great toe fusion Hyperparathyroidism open wound of toes Peripheral vascular disease of lower extremity Acute hematogenous osteomyelitis Hypothyroidism Hyperlipidemia Charcot's joint of left foot Peripheral neuropathy PVD (peripheral vascular disease) nonhealing plantar l foot wound Diabetic foot infection Diabetes type 1, controlled Home Medications ?Medication ?Instructions ?Recorded ?Last Taken ?Type insulin pump syringe 1.8 mL 01/23/18 Unknown History acetaminophen 325 mg tablet 650 mg (2 x 325 mg) PO Q4H PRN PRN 09/29/22 Unknown Rx Pain 1-10/Fever #0 tabs trazodone 50 mg tablet 25 mg (1/2 x 50 mg) PO QHS PRN 03/13/23 Unknown Rx insomnia #90 tabs hydroxyzine HCl 25 mg tablet 25 mg PO PRN PRN anxiety 04/18/23 Unknown History simvastatin 20 mg tablet 40 mg PO QHS cholesterol 04/18/23 02/05/24 History ondansetron 4 mg disintegrating 4 mg PO Q8H PRN nausea and 06/14/23 Unknown Rx tablet vomiting #60 tabs ascorbic acid (vitamin C) 1,000 mg 1 g PO DAILY 90 days #90 tabs 06/21/23 02/06/24 Rx tablet (Vitamin C) aspirin 81 mg tablet,delayed 81 mg PO DAILY 30 days #30 tabs 06/21/23 03/13/25 Rx release calcium 500 mg (as 1 tab PO DAILY 90 days #90 tabs 06/21/23 02/06/24 Rx carbonate)-vitamin D3 15 mcg (600 unit) tablet (Os-Criilo 500 + D3) levothyroxine 125 mcg tablet 125 mcg PO DAILY #90 tabs 07/25/24 Unknown Rx naproxen 500 mg tablet 500 mg PO BID PRN #20 tabs 08/05/24 Unknown Rx omeprazole 40 mg capsule,delayed 40 mg PO QDAY #90 caps 09/16/24 Unknown Rx release insulin lispro 100 unit/mL 100 unit subcut .continuous blood 12/03/24 Unknown Rx subcutaneous solution (Humalog glucose #90 mL U-100 Insulin) insulin pump cart,auto,BT,G6/7 #15 ea 12/11/24 Unknown Rx (Omnipod 5 G6-G7 Pods (Gen 5) subcutaneous cartridge) enalapril maleate 5 mg tablet 5 mg PO DAILY #90 tabs 12/16/24 03/13/25 Rx duloxetine 30 mg capsule,delayed 30 mg PO BID #60 caps 02/04/25 Unknown Rx release blood-glucose sensor (Dexcom G7 #9 ea 02/24/25 Unknown Rx Sensor device) buspirone 5 mg tablet 5 mg PO BID mood 03/13/25 03/13/25 History Allergy/AdvReac Type Severity Reaction Status Date / Time codeine AdvReac Vomiting Verified 03/13/25 13:12 Family History Mother Diabetes Father Diabetes Grandfather Diabetes Grandmother Diabetes Surgical History S/P tubal ligation Hx of appendectomy S/P laparoscopic appendectomy S/P foot surgery, left History of endometrial biopsy Status post bilateral foot surgery Hx of tubal ligation Hx of adenoidectomy History of tonsillectomy Hx of section S/P transmetatarsal amputation of foot Social History Smoking Status: Never smoker second hand exposure: No alcohol intake: current substance use type: does not use caffeine: Yes Review of Systems (Anesthesia) ROS Narrative System reviewed and no additional complaints, except as documented.
[2025-03-14] MEDS: 0.9% Normal Saline (1000mL) 1,000 ML 1000 ML IV (11:04)
--- NOTE | 2025-03-14 11:05 | RAD_ITS ---
PROCEDURE: Intraoperative fluoroscopic services provided for hardware removal. 03/14/2025 REASON FOR EXAM: HARDWARE REMOVAL TECHNIQUE: Procedure Code: RADANK2 Modality: DX Procedure: ANKLE 2 VIEWS. Intraoperative fluoroscopic services. 6.2 seconds of fluoroscopy. 0.24 mGy of radiation dose. Laterality: Right ankle COMPARISON: March 13, 2025. FINDINGS: Intraoperative imaging provided for hardware removal. RAD/Ankle 2 Views IMPRESSION: Intraoperative fluoroscopic services provided for hardware removal. Reading Location: [id number]
[2025-03-14] MEDS: fentaNYL 100 MCG/2 ML Ampul IV (11:09)
[2025-03-14] MEDS: Lidocaine 1% (5 ml sdv) 5 ML Vial 10 ML IV (11:09)
--- NOTE | 2025-03-14 13:09 | SUR.PHASEI ---
PT PUT ON BIPAP IN PACU PER ANESTHESIA. PT ABLE TO ANSWER QUESTION AND MOVE IN BED ON OWN.
--- NOTE | 2025-03-14 13:16 | SUR.PHASEI ---
BG 226. DR PINA AWARE. NO NEW ORDERS.
--- NOTE | 2025-03-14 13:49 | PCM.POST.ANE ---
Anesthesia: Postop Eval I Current Vital Signs Temperature: 97 F Pulse Rate: 99 Blood Pressure: 128/63 Respiratory Rate: 14 Pulse Ox: 99 Oxygen Delivery Method: Bi-pap Fraction of Inspired Oxygen (FIO2): 30 Assessment Airway patent: Yes Spontaneous unlabored respirations: Yes Mental status: Awake nausea: No Vomiting: No Anesthesia Complication: No Fluid Hydration Crystalloid volume administer (ml): 500 Total IV fluid infused: 500 Progress Note Post-operative progress note: Requiring BPAP 30%. sleepy. no pain. perhaps from narcotics/sleep apnea issues. Anesthesia document: Postop Eval 1 completed: Yes
--- NOTE | 2025-03-14 14:07 | PCM.POST.ANE ---
Anesthesia: Postop Eval I Current Vital Signs Temperature: 98.1 F Pulse Rate: 102 Blood Pressure: 126/55 Respiratory Rate: 14 Pulse Ox: 95 Oxygen Delivery Method: Room Air Assessment Airway patent: Yes Spontaneous unlabored respirations: Yes Mental status: Awake nausea: No Vomiting: No Anesthesia Complication: No Fluid Hydration Crystalloid volume administer (ml): 1,000 Total IV fluid infused: 1,000 Progress Note Anesthesia document: Postop Eval 1 completed: Yes
--- NOTE | 2025-03-14 15:40 | CASEMGMT ---
DEVON ANGLIN Assessment: Face to Face with pt for initial transition planning/care coordination assessment. RN DERREK introduced self and role at [facility], pt voices understanding and consents to assessment. Pt is A&O x4 and answers all questions appropriately at this time. Care providers, pharmacy, and demographics verified/updated. Strata: 2 Admitting Dx: Diabetic foot infection PCP: Ivette Specialists: , Claims Adjuster Preferred Pharmacy: [facility] Insurance: [place] Prescription Benefit: yes LNOK: SonMj Living Arrangements: Pt lives with adult son in a 2 story home, but Pt lives on main level. Pt has 2 steps to enter in. ADLs: Pt reports I with ADLs and IADLs. Transportation: Pt drives self and denies concerns with transportation. DME: [employer] and supplies, walker, cane, W/C, scooter. HHC/SNF: Previously used [facility]. Pt states no concerns with going home at time of dc. Pt states no further concerns/needs. CM to follow. Advised pt to ask CM if any further question/concerns/needs arise, voices understanding. Pt Goal: TBD Plan: TBD. ID, Podiatry, and Wound nurse consulted. Follow for recommendations. If pt needing HHC, preference is [facility]. Denies wanting a list. John OSORIO CM
[2025-03-14] MEDS: INSULIN PUMP (SELF-ADMIN/POM) 1 EACH NOTE ×2 (15:45→22:05)
--- NOTE | 2025-03-14 15:48 | POSTOPAN2_ITS ---
Anesthesia Postop Eval I Sum Postop Eval Completion status Anesthesia document: Postop Eval 1 completed: Yes Anesthesia Postop Eval I Summary Anesthesia Postop Eval I Summary: Anesthesia Postop Eval I: Assessment Summary Airway patent Yes 03/14/25 14:09 MASTER FIRE CONTROL TECHNICIAN.ACAR Spontaneous unlabored Yes 03/14/25 14:09 MASTER FIRE CONTROL TECHNICIAN.ACAR respirations Mental status Awake 03/14/25 14:09 MASTER FIRE CONTROL TECHNICIAN.ACAR nausea No 03/14/25 14:09 MASTER FIRE CONTROL TECHNICIAN.ACAR Vomiting No 03/14/25 14:09 MASTER FIRE CONTROL TECHNICIAN.ACAR Anesthesia Postop Eval I: Fluid Summary Crystalloid volume administer 1,000 03/14/25 14:09 MASTER FIRE CONTROL TECHNICIAN.ACAR (ml) Colloids volume administered ( ml) Blood Product volume administered (ml) Total IV fluid infused 1,000 03/14/25 14:09 MASTER FIRE CONTROL TECHNICIAN.ACAR Anesthesia Postop Eval I: Summary Notes Anesthesia Complication No 03/14/25 14:09 MASTER FIRE CONTROL TECHNICIAN.ACAR Anesthesia Complication Comment: Post-operative progress note Requiring BPAP 30% 03/14/25 13:51 . sleepy. no pain. perhaps from narcotics/sleep apnea issues. Anesthesia: Postop Eval II Evaluation Mental status: Awake Pain Level: 0 nausea: No Vomiting: No
--- NOTE | 2025-03-14 15:48 | PCM.POSTANE2 ---
Anesthesia Postop Eval I Sum Postop Eval Completion status Anesthesia document: Postop Eval 1 completed: Yes Anesthesia Postop Eval I Summary Anesthesia Postop Eval I Summary: Anesthesia Postop Eval I: Assessment Summary Airway patent Yes 03/14/25 14:09 SECURITIES [email or web address].ACAR Spontaneous unlabored Yes 03/14/25 14:09 SECURITIES TRADER.ACAR respirations Mental status Awake 03/14/25 14:09 SECURITIES TRADER.ACAR nausea No 03/14/25 14:09 SECURITIES TRADER.ACAR Vomiting No 03/14/25 14:09 SECURITIES TRADER.ACAR Anesthesia Postop Eval I: Fluid Summary Crystalloid volume administer 1,000 03/14/25 14:09 SECURITIES TRADER.ACAR (ml) Colloids volume administered ( ml) Blood Product volume administered (ml) Total IV fluid infused 1,000 03/14/25 14:09 SECURITIES TRADER.ACAR Anesthesia Postop Eval I: Summary Notes Anesthesia Complication No 03/14/25 14:09 SECURITIES TRADER.ACAR Anesthesia Complication Comment: Post-operative progress note Requiring BPAP 30% 03/14/25 13:51 . sleepy. no pain. perhaps from narcotics/sleep apnea issues. Anesthesia: Postop Eval II Evaluation Mental status: Awake Pain Level: 0 nausea: No Vomiting: No
--- NOTE | 2025-03-14 16:05 | PCM.CONS.GEN ---
Assessment & Plan Assessment/Plan (1) Infection and inflammatory reaction due to internal fixation device of right fibula, initial encounter: PLAN: Taken to OR this AM 03/14/[address] Larsen for I&D and hardware removal. Surg cx pending. Wound cx so far showing stpah aureus. On empiric vanc/zosyn. Will follow, thank you HPI Consult Data Date of Consult: 03/14/25 HPI Narrative Reason for Consultation: osteo HPI Narrative: BEAN LEES, is a 59 F who presented 03/13 with acute onset R ankle pain, swelling, redness. No known inciting event. Does have hardware in place. Had some chills. Came to ED, admitted on vanc/zosyn, taken to OR this AM by Dr. Larsen for I&D and hardware removal. Feeling ok in pacu, no n/v/d. Pain controlled. Full ROS performed and neg except as noted above. [facility] Medical History Restless legs High cholesterol Chronic back pain Trigger finger Left hip pain Chest pain, atypical Anemia Flatulence Bilateral knee pain Colon cancer screening GERD (gastroesophageal reflux disease) Nausea Abdominal pain Wears glasses Anxiety Alcohol use Open wound Insulin dependent diabetes mellitus Uses wheelchair Dietary restriction Gastric reflux Non-smoker Shortness of breath on exertion Leg cramps History of edema Hypertension Preoperative evaluation to rule out surgical contraindication Health care maintenance Insomnia Skin picking habit Needs flu shot Breast cancer screening Anxiety and depression Obesity novasure bilat eye surgery great toe fusion Hyperparathyroidism open wound of toes Peripheral vascular disease of lower extremity Acute hematogenous osteomyelitis Hypothyroidism Hyperlipidemia Charcot's joint of left foot Peripheral neuropathy PVD (peripheral vascular disease) nonhealing plantar l foot wound Diabetic foot infection Diabetes type 1, controlled Home Medications ?Medication ?Instructions ?Recorded ?Last Taken ?Type insulin pump syringe 1.8 mL 01/23/18 Unknown History acetaminophen 325 mg tablet 650 mg (2 x 325 mg) PO Q4H PRN PRN 09/29/22 Unknown Rx Pain 1-10/Fever #0 tabs trazodone 50 mg tablet 25 mg (1/2 x 50 mg) PO QHS PRN 03/13/23 Unknown Rx insomnia #90 tabs hydroxyzine HCl 25 mg tablet 25 mg PO PRN PRN anxiety 01/09/24 Unknown History simvastatin 20 mg tablet 40 mg PO QHS cholesterol 04/18/23 02/05/24 History ondansetron 4 mg disintegrating 4 mg PO Q8H PRN nausea and 06/14/23 Unknown Rx tablet vomiting #60 tabs ascorbic acid (vitamin C) 1,000 mg 1 g PO DAILY 90 days #90 tabs 06/21/23 02/06/24 Rx tablet (Vitamin C) aspirin 81 mg tablet,delayed 81 mg PO DAILY 30 days #30 tabs 06/21/23 03/13/25 Rx release calcium 500 mg (as 1 tab PO DAILY 90 days #90 tabs 06/21/23 02/06/24 Rx carbonate)-vitamin D3 15 mcg (600 unit) tablet (Os-Cirilo 500 + D3) levothyroxine 125 mcg tablet 125 mcg PO DAILY #90 tabs 07/25/24 Unknown Rx naproxen 500 mg tablet 500 mg PO BID PRN #20 tabs 08/05/24 Unknown Rx omeprazole 40 mg capsule,delayed 40 mg PO QDAY #90 caps 09/16/24 Unknown Rx release insulin lispro 100 unit/mL 100 unit subcut .continuous blood 12/03/24 Unknown Rx subcutaneous solution (Humalog glucose #90 mL U-100 Insulin) insulin pump cart,auto,BT,G6/7 #15 ea 12/11/24 Unknown Rx (Omnipod 5 G6-G7 Pods (Gen 5) subcutaneous cartridge) enalapril maleate 5 mg tablet 5 mg PO DAILY #90 tabs 12/16/24 03/13/25 Rx duloxetine 30 mg capsule,delayed 30 mg PO BID #60 caps 02/04/25 Unknown Rx release blood-glucose sensor (Dexcom G7 #9 ea 02/24/25 Unknown Rx Sensor device) buspirone 5 mg tablet 5 mg PO BID mood 03/13/25 03/13/25 History Allergy/AdvReac Type Severity Reaction Status Date / Time codeine AdvReac Vomiting Verified 03/13/25 13:12 Family History Mother Diabetes Father Diabetes Grandfather Diabetes Grandmother Diabetes Surgical History S/P tubal ligation Hx of appendectomy S/P laparoscopic appendectomy S/P foot surgery, left History of endometrial biopsy Status post bilateral foot surgery Hx of tubal ligation Hx of adenoidectomy History of tonsillectomy Hx of section S/P transmetatarsal amputation of foot Social History Smoking Status: Never smoker second hand exposure: No alcohol intake: current substance use type: does not use caffeine: Yes Physical Exam Const alert, oriented x3 and no apparent distress General Appearance: cooperative HEENT normocephalic and head/scalp atraumatic Eyes PERRL and EOMs intact bilaterally Neck supple and No nodes Resp normal air movement and clear to auscultation bilaterally Cardio regular rate, regular rhythm and no murmurs GI soft to palpation, non-tender and non-distended Extremity General Extremity: Negative for edema Skin Skin Narrative: RLE wrapped Neuro CN's II-XII intact bilaterally Lab / Micro Data Attestation: I reviewed the patient's lab results. 03/14/25 05:30 03/14/25 04:29 Labs: Laboratory Results - last 24 hr 03/13/25 17:10: POC Glucose 139 H 03/14/25 04:29: WBC Cancelled, Corrected WBC Cancelled, RBC Cancelled, Hgb Cancelled, Hct Cancelled, MCV Cancelled, MCH Cancelled, MCHC Cancelled, RDW Std Deviation Cancelled, RDW Coeff of Frank Cancelled, Plt Count Cancelled, MPV Cancelled, Immature Gran % (Auto) Cancelled, Neut % (Auto) Cancelled, Lymph % (Auto) Cancelled, Haines % (Auto) Cancelled, Eos % (Auto) Cancelled, Baso % (Auto) Cancelled, Absolute Neuts (auto) Cancelled, Absolute Lymphs (auto) Cancelled, Total Counted Cancelled, Neutrophils % (Manual) Cancelled, Band Neutrophils % Cancelled, Lymphocytes % (Manual) Cancelled, Monocytes % (Manual) Cancelled, Eosinophils % (Manual) Cancelled, Basophils % (Manual) Cancelled, Metamyelocytes % Cancelled, Myelocytes % Cancelled, Promyelocytes % Cancelled, Blast Cells % Cancelled, Plasma Cell % (Manual) Cancelled, Other Cells % Cancelled, Nucleated RBC % Cancelled, Nucleated RBCs/100 WBC Cancelled, Differential Comment Cancelled, Diff Path Review Cancelled, Hypersegmented Neuts Cancelled, Atypical Lymphocytes Cancelled, Reactive Lymphocytes Cancelled, Smudge Cells Cancelled, Toxic Granulation Cancelled, Toxic Vacuolation Cancelled, Dohle Bodies Cancelled, Eloise Rods Cancelled, Platelet Estimate Cancelled, Plt Morphology Comment Cancelled, RBC Morphology Cancelled 03/14/25 04:29: RBC Morphology Cancelled, Polychromasia Cancelled, Hypochromasia Cancelled, Basophilic Stippling Cancelled, Anisocytosis Cancelled, Microcytosis Cancelled, Macrocytosis Cancelled, Spherocytes Cancelled, Sickle Cells Cancelled, Target Cells Cancelled, Tear Drop Cells Cancelled, Ovalocytes Cancelled, Stomatocytes Cancelled, Cifuentes-Guthrie Bodies Cancelled, Verena Cells Cancelled, Bite Cells Cancelled, Crenated Cell Cancelled, Acanthocytes (Spur) Cancelled, Rouleaux Cancelled, Schistocytes Cancelled, Sodium 136, Potassium 4.2, Chloride 105, Carbon Dioxide 18.4 L, Anion Gap 13, BUN 10, Creatinine 0.66 L, Estim Creat Clear Calc 105.68, Est GFR (MDRD) Non-Af 102, BUN/Creatinine Ratio 14.3, Glucose 182 H, Hemoglobin A1c 6.9 H, Calcium 8.6, TSH 7.830 H 03/14/25 05:30: WBC 9.8, RBC 3.55 L, Hgb 10.2 L, Hct 31.6 L, MCV 89.0, MCH 28.7, MCHC 32.3, RDW Std Deviation 41.5, RDW Coeff of Frank 12.7, Plt Count 220, MPV 11.0, Immature Gran % (Auto) 0.600, Neut % (Auto) 69.6, Lymph % (Auto) 19.3, Haines % (Auto) 9.6, Eos % (Auto) 0.4, Baso % (Auto) 0.5, Absolute Neuts (auto) 6.8, Absolute Lymphs (auto) 1.89, Nucleated RBC % 0 03/14/25 06:13: POC Glucose 158 H 03/14/25 12:48: POC Glucose 226 H 03/14/25 14:16: POC Glucose 252 H Micro: Microbiology 03/13/25 15:25 Wound - Ankle Gram Stain - Final 03/13/25 15:25 Wound - Ankle Wound Culture - Preliminary Staphylococcus aureus Rhythm Strip Rhythm Strip: Sinus Rhythm Rate: 98 Ectopy: None Imaging Radiology Impression Ankle X-Ray 03/14/25 11:05 IMPRESSION: Intraoperative fluoroscopic services provided for hardware removal. Reading Location: [place] [id number]
[2025-03-14] MEDS: 0.9% Saline Lock 10 ML Syringe IV (19:58)
[2025-03-15 00:04] VITALS: BP 120/68; PULSE 87; RESP 16; TEMP 36.6; O2SAT 98
[2025-03-15 04:04] VITALS: BP 105/41; PULSE 89; RESP 16; TEMP 36.6; O2SAT 98
[2025-03-15] MEDS: Vancomycin HCl 1,000 MG in 0.9% Normal Saline (250mL Bag) 250 ML 250 MG IV ×2 (05:14→18:33)
[2025-03-15] MEDS: Piperacil/Tazobactam 3.375 GM in 0.9% Normal Saline (50mL MB+) 50 ML IV ×3 (06:39→21:24)
[2025-03-15 08:10] VITALS: BP 111/42; PULSE 80; RESP 17; TEMP 36.7; O2SAT 97
--- NOTE | 2025-03-15 09:07 | PCM.PN.HOSP ---
Reason for Visit Chief Complaint: right ankle swelling. Subjective Subjective Patient underwent removal of hardware as well as I&D of the right lower extremity by Dr. Larsen on 03/14/2025 Objective Data Objective Data Vital Signs: Vital Signs Temp Pulse Resp BP Pulse Ox O2 Del Method O2 Flow Rate 98.1 F 80 17 111/42 L 97 Room Air 2 03/15/25 08:10 03/15/25 08:10 03/15/25 08:10 03/15/25 08:10 03/15/25 08:10 03/15/25 08:10 03/15/25 00:04 FiO2 30 03/14/25 13:51 Oxygen Flow Rate (L/min) 2 Oxygen Delivery Method Room Air Weight: 95.9 kg Body Mass Index (BMI) 36.3 Intake & Output: Intake and Output for Last 24 Hours 03/13/25 03/14/25 03/15/25 23:59 23:59 23:59 Intake Total 630 / 630 1489.58 / 1489.58 320 / 320 Output Total 150 / 150 Balance 630 / 630 1339.58 / 1339.58 320 / 320 Lab / Micro Data 03/14/25 05:30 03/14/25 04:29 Labs: Laboratory Results - last 24 hr 03/14/25 12:48: POC Glucose 226 H 03/14/25 14:16: POC Glucose 252 H 03/14/25 22:04: POC Glucose 286 H 03/15/25 06:38: POC Glucose 188 H Micro: Microbiology 03/14/25 12:00 Bone - Ankle Gram Stain - Final 03/14/25 12:00 Bone - Ankle Wound Culture - Preliminary Staphylococcus species 03/14/25 12:00 Tissue - Ankle Gram Stain - Final 03/14/25 12:00 Tissue - Ankle Wound Culture - Preliminary Staphylococcus species 03/13/25 15:25 Wound - Ankle Gram Stain - Final 03/13/25 15:25 Wound - Ankle Wound Culture - Final Staphylococcus aureus Radiography Diagnostic Testing: Radiology Impression Ankle X-Ray 03/14/25 11:05 IMPRESSION: Intraoperative fluoroscopic services provided for hardware removal. Reading Location: [place] [address] Rhythm Strip Rhythm Strip: Sinus Rhythm Rate: 98 Ectopy: None Physical Exam Narrative GENERAL: cooperative HEENT: Atraumatic; normocephalic EYES; Anicteric, Normal Conjunctiva NECK; supple, normal thyroid, RESPIRATORY: Diminished to auscultation CARDIOVASCULAR: Regular S1 S2, GI: soft, normoactive bowel sounds, : No Renal angle tenderness; EXTREMITIES: Area of ulceration on the right lateral malleolus MUSCULOSKELETAL: no muscle wasting NEURO: Awake; no lateralizing signs. SKIN: No Rash PSYCH; Flat affect Assessment & Plan Assessment/Plan (1) Diabetic foot infection: PLAN: Plan Patient is a 59-year-old lady with history of diabetes mellitus type 1 on an insulin pump who presented with right ankle swelling. Patient has underlying history of right ankle hardware following ankle fracture almost 25 years ago. And assessment of possible hardware infection. Admitted to regular nursing floor started on broad-spectrum antibiotic therapy consult placed to podiatry 1. Diabetic foot infection ? Possibly involving the hardware. Patient started on Zosyn as well as vancomycin culture sent. Consult placed to podiatry and ID on admission ? 03/15/2025; patient underwent Incision and drainage, right lower extremity Procedure #2: Removal of infected deep orthopedic hardware, right lower extremity Procedure #3: Delayed primary closure, right lower extremity. Wound cultures were positive for gram-positive organisms. Patient remains on broad-spectrum antibiotic therapy. Patient was seen in consultation by ID 2. Diabetes mellitus type 1 controlled ? Patient is on insulin pump plan is to continue 3. Class II obesity with BMI of 36.3 ? Complicating care weight loss advised 4. Dyslipidemia ?Patient is on statin therapy, continued at home dose 5. Hypothyroidism ? Patient is on levothyroxine home dose continued 6. Hypertension ? Blood pressure controlled, home medications continued with dose adjustment as needed 7. Depression with anxiety ? Patient is on duloxetine 8. Anemia ? Secondary to chronic disorder monitoring H&H and transfuse if patient becomes symptomatic or hemoglobin falls below 7 9. DVT prophylaxis ? SCDs for now Time spent in the patient's overall evaluation,decision-making process, review of diagnostic data, adjustment of management, discussion with other providers, nursing nursing and ancillary staff involved in patient's care documentation, 38 Minutes Charges/Coding Visit Charges Inpatient E&M: 09769 Subs Hosp L2
[2025-03-15] MEDS: INSULIN PUMP (SELF-ADMIN/POM) 1 EACH NOTE ×4 (10:18→21:24)
[2025-03-15 14:15] VITALS: BP 115/49; PULSE 97; RESP 17; TEMP 36.8; O2SAT 94
--- NOTE | 2025-03-15 17:13 | PN.SURG_ITS ---
Subjective Subjective Patient is a 59-year-old diabetic female seen at bedside today for evaluation of status post incision and drainage, deep hardware removal secondary to infection with delayed primary closure of full-thickness wound to lateral right ankle. POD #1. DOS: 03/14/2025. Patient is doing well after surgery. She has no pain to the right lower extremity. No acute events overnight. Denies trauma. Denies constitutional symptoms. No other pedal complaints at this time. Objective Data Objective Data Vital Signs: Vital Signs Temp Pulse Resp BP Pulse Ox O2 Del Method O2 Flow Rate 98.2 F 97 17 115/49 L 94 Room Air 2 03/15/25 14:15 03/15/25 14:15 03/15/25 14:15 03/15/25 14:15 03/15/25 14:15 03/15/25 14:15 03/15/25 00:04 FiO2 30 03/14/25 13:51 Oxygen Flow Rate (L/min) 2 Oxygen Delivery Method Room Air Weight: 95.9 kg Body Mass Index (BMI) 36.3 Intake & Output: Intake and Output for Last 24 Hours 03/13/25 03/14/25 03/15/25 23:59 23:59 23:59 Intake Total 630 / 630 1489.58 / 1489.58 370 / 370 Output Total 150 / 150 Balance 630 / 630 1339.58 / 1339.58 370 / 370 Lab / Micro Data 03/14/25 05:30 03/14/25 04:29 Labs: Laboratory Results - last 24 hr 03/14/25 22:04: POC Glucose 286 H 03/15/25 06:38: POC Glucose 188 H 03/15/25 11:27: POC Glucose 166 H 03/15/25 16:36: POC Glucose 198 H Micro: Microbiology 03/14/25 12:00 Bone - Ankle Gram Stain - Final 03/14/25 12:00 Bone - Ankle Wound Culture - Preliminary Staphylococcus species 03/14/25 12:00 Tissue - Ankle Gram Stain - Final 03/14/25 12:00 Tissue - Ankle Wound Culture - Preliminary Staphylococcus species 03/13/25 15:25 Wound - Ankle Gram Stain - Final 03/13/25 15:25 Wound - Ankle Wound Culture - Final Staphylococcus aureus Radiography Diagnostic Testing: Radiology Impression Ankle X-Ray 03/13/25 14:08 IMPRESSION: Prior ORIF of the distal tibia and fibula as described. Diffuse soft tissue swelling more prominent on the lateral aspect. Reading Location: [facility] Rhythm Strip Rhythm Strip: Sinus Rhythm Rate: 98 Ectopy: None Physical Exam Narrative Neurovascular status is unchanged. Nonpitting edema appreciated to the right lower extremity. Blanchable erythema to the delayed primary closure site of the lateral right ankle which is improving. Incision is well coapted with suture. No evidence of surgical wound dehiscence. No pain to palpation to the incision to the lateral right ankle. No pain with calf pressure. Assessment & Plan Assessment/Plan (1) Infection and inflammatory reaction due to internal fixation device of right fibula, initial encounter: PLAN: Patient was examined and evaluated. All findings were discussed with the patient. All questions were answered to the patient's satisfaction. Patient is status post incision and drainage, removal of deep hardware secondary to infection with delayed primary closure of the full-thickness wound to the lateral ankle. POD #1. DOS: 03/14/2025. Patient is doing well. No pain to the right lower extremity. The incision to the lateral right ankle was dressed with Betadine soaked Adaptic dry sterile dressing and a single layer Paulino compression bandage was donned to the right lower extremity. Surgical culture (bone): Staphylococcus species Surgical culture (post lavage): Staphylococcus species Appreciate infectious disease recommendation for antibiotics at discharge, oral versus PICC line. WBC: 11.2 -> 9.8 Glucose: 230 Medicine: On board, medical management Infectious disease: On board, IV antibiotics vancomycin and Zosyn Long discussion with the patient regarding discharge planning. The patient states that she would like to go home and is comfortable administering IV antibiotics personally as she has done this in the past. Please reach out to Dr. Larsen for any question or concerns. Thank you for letting me be involved in the patient care. (2) Cellulitis of right lower limb: (3) Diabetic foot infection:
[2025-03-15 17:42] LABS: Vancomycin, Trough Level 14.4 ug/mL (5.0-15.0)
--- NOTE | 2025-03-15 18:07 | PCM.RX.CS ---
Consult Antibiotic Management Pharmacy has been consulted to manage selected antibiotic: Vancomycin Type of Intervention Type of Consult: Follow-up Suspected Infection Suspected Infection: Skin/Soft tissue Labs Labs: Sodium 136 mmol/L (133-145) 03/14/25 04:29 Potassium 4.2 mmol/L (3.3-5.1) 03/14/25 04:29 Chloride 105 mmol/L (98-108) 03/14/25 04:29 Carbon Dioxide 18.4 mmol/L (21.0-32.0) L 03/14/25 04:29 Anion Gap 13 (5-15) 03/14/25 04:29 BUN 10 mg/dL (4-19) 03/14/25 04:29 Creatinine 0.66 mg/dL (0.70-1.20) L 03/14/25 04:29 Est GFR (MDRD) Non-Af 102 (>60) 03/14/25 04:29 BUN/Creatinine Ratio 14.3 RATIO (10-20) 03/14/25 04:29 Glucose 182 mg/dL (70-99) H 03/14/25 04:29 Vancomycin Trough 14.4 ug/mL (5.0-15.0) 03/15/25 16:55 Microbiology Microbiology: Microbiology 03/14/25 12:00 Bone - Ankle Gram Stain - Final 03/14/25 12:00 Bone - Ankle Wound Culture - Preliminary Staphylococcus species 03/14/25 12:00 Tissue - Ankle Gram Stain - Final 03/14/25 12:00 Tissue - Ankle Wound Culture - Preliminary Staphylococcus species 03/13/25 15:25 Wound - Ankle Gram Stain - Final 03/13/25 15:25 Wound - Ankle Wound Culture - Final Staphylococcus aureus Pharmacy Plan for Drug Dosing Pharmacy Plan for Drug Dosing: VANCOMYCIN LEVEL RECEIVED Current Vancomycin Dose: 1000MG Q12H Number of Doses Received: 4 Vancomycin Level: 14.4MG/DL Hours Since Last Dose: 12 Renal Function: 0.66MG/DL Renal Function Trend: STABLE Lab/Micro: PRELIM WOUND CULTURE WITH STAPH AUREUS Vancomycin Plan/Comments: 12 HOUR TROUGH IS SLIGHTLY SUBTHERAPEUTIC AT 14.4 (GOAL 15-20). WILL CONTINUE CURRENT DOSING AND GET TROUGH 03/16/2025 Pending Level: 03/16/2025 @ 1630 Pharmacy Service will continue to monitor and adjust dosing as required.
--- NOTE | 2025-03-15 18:11 | PCM.RX.CS ---
Consult Antibiotic Management Pharmacy has been consulted to manage selected antibiotic: Vancomycin Type of Intervention Type of Consult: Follow-up Suspected Infection Suspected Infection: Skin/Soft tissue Labs Labs: Sodium 136 mmol/L (133-145) 03/14/25 04:29 Potassium 4.2 mmol/L (3.3-5.1) 03/14/25 04:29 Chloride 105 mmol/L (98-108) 03/14/25 04:29 Carbon Dioxide 18.4 mmol/L (21.0-32.0) L 03/14/25 04:29 Anion Gap 13 (5-15) 03/14/25 04:29 BUN 10 mg/dL (4-19) 03/14/25 04:29 Creatinine 0.66 mg/dL (0.70-1.20) L 03/14/25 04:29 Est GFR (MDRD) Non-Af 102 (>60) 03/14/25 04:29 BUN/Creatinine Ratio 14.3 RATIO (10-20) 03/14/25 04:29 Glucose 182 mg/dL (70-99) H 03/14/25 04:29 Vancomycin Trough 14.4 ug/mL (5.0-15.0) 03/15/25 16:55 Microbiology Microbiology: Microbiology 03/14/25 12:00 Bone - Ankle Gram Stain - Final 03/14/25 12:00 Bone - Ankle Wound Culture - Preliminary Staphylococcus species 03/14/25 12:00 Tissue - Ankle Gram Stain - Final 03/14/25 12:00 Tissue - Ankle Wound Culture - Preliminary Staphylococcus species 03/13/25 15:25 Wound - Ankle Gram Stain - Final 03/13/25 15:25 Wound - Ankle Wound Culture - Final Staphylococcus aureus Pharmacy Plan for Drug Dosing Pharmacy Plan for Drug Dosing: VANCOMYCIN LEVEL RECEIVED Current Vancomycin Dose: 1000MG Q12H Number of Doses Received: 4 Vancomycin Level: 14.4MG/DL Hours Since Last Dose: 12 Renal Function: 0.66MG/DL Renal Function Trend: STABLE Lab/Micro: PRELIM WOUND CULTURE WITH STAPH AUREUS Vancomycin Plan/Comments: 12 HOUR TROUGH IS SLIGHTLY SUBTHERAPEUTIC AT 14.4 (GOAL 15-20). IT IS LIKELY DRUG WILL CONTINUE TO ACCUMULATE. WILL CONTINUE CURRENT DOSING AND GET TROUGH 03/16/2025 Pending Level: 03/16/2025 @ 1630 Pharmacy Service will continue to monitor and adjust dosing as required.
[2025-03-15] MEDS: hydrOXYzine PAM 25 MG Capsule PO (20:39)
[2025-03-15 20:46] VITALS: BP 94/46; PULSE 93; RESP 16; TEMP 36.9; O2SAT 95
[2025-03-16] VITALS (7 sets, daily range): BP systolic 117–142; BP diastolic 49–60; PULSE 93–105; RESP 16–18; TEMP 36.6–38.1; O2SAT 82–95
[2025-03-16] MEDS: Vancomycin HCl 1,000 MG in 0.9% Normal Saline (250mL Bag) 250 ML 250 MG IV (04:54)
[2025-03-16] MEDS: Piperacil/Tazobactam 3.375 GM in 0.9% Normal Saline (50mL MB+) 50 ML IV ×3 (06:39→21:20)
--- NOTE | 2025-03-16 07:25 | PN.HOSP_ITS ---
Reason for Visit Chief Complaint: right ankle swelling. Subjective Subjective Postoperative day 2 following right ankle surgery. Patient reports aching all over. Objective Data Objective Data Vital Signs: Vital Signs Temp Pulse Resp BP Pulse Ox O2 Del Method O2 Flow Rate 97.9 F 93 16 117/50 L 95 Room Air 2 03/16/25 02:30 03/16/25 02:30 03/16/25 02:30 03/16/25 02:30 03/16/25 02:30 03/16/25 02:30 03/15/25 00:04 FiO2 30 03/14/25 13:51 Oxygen Flow Rate (L/min) 2 Oxygen Delivery Method Room Air Weight: 95.9 kg Body Mass Index (BMI) 36.3 Intake & Output: Intake and Output for Last 24 Hours 03/14/25 03/15/25 03/16/25 23:59 23:59 23:59 Intake Total 1489.58 / 1489.58 690 / 690 320 / 320 Output Total 150 / 150 Balance 1339.58 / 1339.58 690 / 690 320 / 320 Lab / Micro Data 03/14/25 05:30 03/14/25 04:29 Labs: Laboratory Results - last 24 hr 03/15/25 11:27: POC Glucose 166 H 03/15/25 16:36: POC Glucose 198 H 03/15/25 16:55: Vancomycin Trough 14.4 03/15/25 21:22: POC Glucose 230 H 03/16/25 06:00: Sodium Cancelled, Potassium Cancelled, Chloride Cancelled, Carbon Dioxide Cancelled, Anion Gap Cancelled, BUN Cancelled, Creatinine Cancelled, Estim Creat Clear Calc Cancelled, Est GFR (MDRD) Non-Af Cancelled, BUN/Creatinine Ratio Cancelled, Glucose Cancelled, Calcium Cancelled 03/16/25 06:46: POC Glucose 204 H Micro: Microbiology 03/14/25 12:00 Bone - Ankle Gram Stain - Final 03/14/25 12:00 Bone - Ankle Wound Culture - Preliminary Staphylococcus species 03/14/25 12:00 Tissue - Ankle Gram Stain - Final 03/14/25 12:00 Tissue - Ankle Wound Culture - Preliminary Staphylococcus species 03/13/25 15:25 Wound - Ankle Gram Stain - Final 03/13/25 15:25 Wound - Ankle Wound Culture - Final Staphylococcus aureus Rhythm Strip Rhythm Strip: Sinus Rhythm Rate: 98 Ectopy: None Physical Exam Narrative GENERAL: cooperative HEENT: Atraumatic; normocephalic EYES; Anicteric, Normal Conjunctiva NECK; supple, normal thyroid, RESPIRATORY: Diminished to auscultation CARDIOVASCULAR: Regular S1 S2, GI: soft, normoactive bowel sounds, : No Renal angle tenderness; EXTREMITIES: Area of ulceration on the right lateral malleolus MUSCULOSKELETAL: no muscle wasting NEURO: Awake; no lateralizing signs. SKIN: No Rash PSYCH; Flat affect Assessment & Plan Assessment/Plan (1) Diabetic foot infection: PLAN: Plan Patient is a 59-year-old lady with history of diabetes mellitus type 1 on an insulin pump who presented with right ankle swelling. Patient has underlying history of right ankle hardware following ankle fracture almost 25 years ago. And assessment of possible hardware infection. Admitted to regular nursing floor started on broad-spectrum antibiotic therapy consult placed to podiatry 1. Diabetic foot infection ? Possibly involving the hardware. Patient started on Zosyn as well as vancomycin culture sent. Consult placed to podiatry and ID on admission ? 03/15/2025; patient underwent Incision and drainage, right lower extremity Procedure #2: Removal of infected deep orthopedic hardware, right lower extremity Procedure #3: Delayed primary closure, right lower extremity. Wound cultures were positive for gram-positive organisms. Patient remains on broad- spectrum antibiotic therapy. Patient was seen in consultation by ID ? 03/16/2025; patient reports aching all over. Wound cultures so far positive for staph specie final identification and sensitivity to follow. Patient complains of aching all over plan is to continue with current pain management 2. Diabetes mellitus type 1 controlled ? Patient is on insulin pump plan is to continue 3. Class II obesity with BMI of 36.3 ? Complicating care weight loss advised 4. Dyslipidemia ?Patient is on statin therapy, continued at home dose 5. Hypothyroidism ? Patient is on levothyroxine home dose continued 6. Hypertension ? Blood pressure controlled, home medications continued with dose adjustment as needed 7. Depression with anxiety ? Patient is on duloxetine 8. Anemia ? Secondary to chronic disorder monitoring H&H and transfuse if patient becomes symptomatic or hemoglobin falls below 7 9. DVT prophylaxis ? SCDs for now Time spent in the patient's overall evaluation,decision-making process, review of diagnostic data, adjustment of management, discussion with other providers, nursing nursing and ancillary staff involved in patient's care documentation, 36 Minutes Charges/Coding Visit Charges Inpatient E&M: 54964 Subs Hosp L2
[2025-03-16 08:18] LABS: Anion Gap 14 (5-15); BUN 22 mg/dL (4-19); BUN/Creat Ratio 27.8 RATIO (10-20); Calcium,Total 8.5 mg/dL (7.6-11.0); Carbon Dioxide 22.5 mmol/L (21.0-32.0); Chloride 105 mmol/L (98-108); Estimated Creatinine Clearance 89.42 ml/min (50-250); Glucose 180 mg/dL (70-99); Potassium 3.8 mmol/L (3.3-5.1)
--- NOTE | 2025-03-16 13:44 | RAD_ITS ---
PROCEDURE: CHEST PA AND LATERAL 03/16/2025 REASON FOR EXAM: HYPOXIA TECHNIQUE: Procedure Code: RADCXR Modality: DX Procedure: CHEST PA AND LATERAL COMPARISON: 08/05/2024 FINDINGS: LUNGS AND PLEURA: Diffuse hazy airspace opacities bilaterally, greater on the left. No pleural effusion or pneumothorax. HEART AND MEDIASTINUM: The cardiac silhouette is mildly enlarged. The mediastinal contour is normal. BONES: No acute osseous abnormality. RAD/Chest PA and Lateral IMPRESSION: Bilateral airspace opacities, likely multifocal pneumonia and/or pulmonary lavern a. Reading Location: [id number]
[2025-03-16 14:31] LABS: D-Dimer Quantitative (DVT/PE) 1.22 FEU/ug/m (0.27-0.49)
[2025-03-16] MEDS: 0.9% Normal Saline (1000mL) 1,000 ML 150 ML IV (14:39)
--- NOTE | 2025-03-16 14:43 | CT_ITS ---
PROCEDURE: CTA CHEST W/WO CONTRAST 03/16/2025 REASON FOR EXAM: ELEVATED D-DIMER TECHNIQUE: Procedure Code: CTCTACHWW Modality: CT Procedure: CTA CHEST W/WO CONTRAST Multiplanar Sagittal and Coronal images were obtained. CONTRAST: 100 mL of Isovue 370 One or more dose reduction techniques were used (e.g., Automated exposure control, adjustment of the mA and/or kV according to patient size, use of iterative reconstruction technique). RADIATION DOSE SUMMARY: DLP: 424 MGycm COMPARISON: None FINDINGS: PULMONARY ARTERIES: No evidence of pulmonary embolism. LUNGS AND PLEURA: Scattered reticular and nodular densities likely reflective of extensive pulmonary edema although atypical pneumonia is not excluded. There is mild bibasilar pleural effusions with subjacent densities likely compressive atelectasis. No pneumothorax. MEDIASTINUM: No lymphadenopathy or mass. The heart shows no acute findings. The aorta shows no acute findings. The pulmonary trunk, and branches of the vessels in the mediastinum are within normal limits. SUPRACLAVICULAR AND AXILLARY: No abnormalities seen in these regions. No mass or significant lymphadenopathy. UPPER ABDOMEN: The visualized upper abdomen is unremarkable. BONES AND SOFT TISSUES: The ribs are unremarkable. The visualized spine shows no significant acute findings. No focal bony mass lesions noted. The subcutaneous soft tissues are unremarkable. CT/CTA Chest W/WO Contrast IMPRESSION: No acute pulmonary emboli. Scattered reticular and nodular densities likely reflective of extensive pulmon annita edema although atypical pneumonia is not excluded. There is mild bibasilar pleural effusions with subjacent densities l ikely compressive atelectasis. Reading Location: [id number]
[2025-03-16 17:41] LABS: Vancomycin, Trough Level 13.7 ug/mL (5.0-15.0)
--- NOTE | 2025-03-16 17:56 | PCM.RX.CS ---
Consult Antibiotic Management Pharmacy has been consulted to manage selected antibiotic: Vancomycin Type of Intervention Type of Consult: Follow-up Labs Labs: Sodium 141 mmol/L (133-145) 03/16/25 07:30 Potassium 3.8 mmol/L (3.3-5.1) 03/16/25 07:30 Chloride 105 mmol/L (98-108) 03/16/25 07:30 Carbon Dioxide 22.5 mmol/L (21.0-32.0) 03/16/25 07:30 Anion Gap 14 (5-15) 03/16/25 07:30 BUN 22 mg/dL (4-19) H 03/16/25 07:30 Creatinine 0.78 mg/dL (0.70-1.20) 03/16/25 07:30 Est GFR (MDRD) Non-Af 88 (>60) 03/16/25 07:30 BUN/Creatinine Ratio 27.8 RATIO (10-20) H 03/16/25 07:30 Glucose 180 mg/dL (70-99) H 03/16/25 07:30 Vancomycin Trough 13.7 ug/mL (5.0-15.0) 03/16/25 17:05 Microbiology Microbiology: Microbiology 03/16/25 14:43 Mucosa - Nasopharyngeal Coronavirus COVID-19 PCR - Final 03/16/25 14:43 Mucosa - Nasopharyngeal Respiratory Panel (PCR) - Final 03/14/25 12:00 Tissue - Ankle Gram Stain - Final 03/14/25 12:00 Tissue - Ankle Wound Culture - Preliminary Staphylococcus aureus 03/14/25 12:00 Tissue - Ankle Anaerobic Culture - Preliminary No growth in 48 hours. 03/14/25 12:00 Bone - Ankle Gram Stain - Final 03/14/25 12:00 Bone - Ankle Wound Culture - Preliminary Staphylococcus aureus 03/14/25 12:00 Bone - Ankle Anaerobic Culture - Preliminary Checking for anaerobes, further studies to follow. 03/13/25 15:25 Wound - Ankle Gram Stain - Final 03/13/25 15:25 Wound - Ankle Wound Culture - Final Staphylococcus aureus 03/13/25 15:25 Wound - Ankle Anaerobic Culture - Preliminary Checking for anaerobes, further studies to follow. Pharmacy Plan for Drug Dosing Pharmacy Plan for Drug Dosing: VANCOMYCIN LEVEL RECEIVED Current Vancomycin Dose: 1000MG Q12 Number of Doses Received: 6 Vancomycin Level: 13.7 MG/DL Hours Since Last Dose: 12 Renal Function: SCr 0.78 mg/dL, CrCl 89 mL/min Renal Function Trend: stable Vancomycin Plan/Comments: 12 hour trough is still slightly subtherapeutic at 13.7 mg/dL (goal 15-20). Will increase dose to 1250mg and get a level prior to 4th dose of new regimen. Pending Level: 03/18/25 @ 7730 Pharmacy Service will continue to monitor and adjust dosing as required.
[2025-03-16] MEDS: Vancomycin HCl 1,250 MG in 0.9% Normal Saline (250mL Bag) 250 ML 167 MG IV (18:11)
--- NOTE | 2025-03-16 21:16 | PCM.HOSP.N ---
Hospitalist Note Nurse asked me to review the CTA chest From the progress note it seems patient had low-grade fever temperature 90.5 ?F, heart rate 103/min on 2 to 3 L of oxygen. Wound culture growing Staph aureus. Respiratory panel negative. COVID-19 PCR negative. Patient already on broad-spectrum IV antibiotic vancomycin and Zosyn and ID is consulted Chest x-ray CT angiogram chest imaging reviewed. It shows bilateral airspace opacity suspected multifocal pneumonia and/or pulmonary edema. Shows interstitial edema/extensive pulmonary edema although suspected constellations in lower lobes and atypical pneumonia cannot be excluded. Furosemide 40 mg IV 1 dose ordered and depending on the response, might need further diuretics. Admission of patient already on broad-spectrum antibiotic
[2025-03-17 02:10] VITALS: BP 147/62; PULSE 86; RESP 16; TEMP 37.1; O2SAT 99
[2025-03-17] MEDS: Vancomycin HCl 1,250 MG in 0.9% Normal Saline (250mL Bag) 250 ML 167 MG IV (04:59)
[2025-03-17] MEDS: 0.9% Saline Lock 10 ML Syringe IV (06:15)
[2025-03-17] MEDS: Piperacil/Tazobactam 3.375 GM in 0.9% Normal Saline (50mL MB+) 50 ML IV (06:41)
[2025-03-17] MEDS: INSULIN PUMP (SELF-ADMIN/POM) 1 EACH NOTE (10:01)
[2025-03-17 10:07] VITALS: BP 104/37; PULSE 90; RESP 18; TEMP 36.6; O2SAT 98
--- NOTE | 2025-03-17 10:35 | WOUNDNOTE ---
wound photo: right lateral ankle
--- NOTE | 2025-03-17 10:35 | WOUNDNOTE ---
skin photo: right lower leg
[2025-03-17 13:00] VITALS: O2SAT 97
[2025-03-17 14:31] VITALS: O2SAT 93
[2025-03-17] MEDS: Cefazolin 2 GM in 0.9% Normal Saline (100mL Bag) 100 ML IV ×2 (14:35→21:19)
--- NOTE | 2025-03-17 14:36 | PCM.PN.ID ---
Physical Exam Narrative Feeling ok, pain controlled, no fever, no n/v/d. Const alert and no apparent distress General Appearance: cooperative Resp normal air movement and clear to auscultation bilaterally Cardio regular rate and regular rhythm GI soft to palpation, non-tender and non-distended Extremity General Extremity: edema Skin Skin Narrative: RLE wrapped ID ID: Route of nutrition/ use of supplements: [] Nutritional Intake: [] IV Site: [] Borrero Catheter: [] Assessment & Plan Assessment/Plan (1) Infection and inflammatory reaction due to internal fixation device of right fibula, initial encounter: PLAN: Taken to OR this AM 03/14/[address] Larsen for I&D and hardware removal. Surg cx with MSSA. On empiric vanc/zosyn. Will narrow to cefazolin. Bcx neg here. Discussed options with her re: IV vs po abx at discharge. She has had picc before, but she is planning on returned to work right away. With a q8h iv antibiotic, I think that would be difficult. Plan for discharge will be 6 weeks po doxy 100mg bid, ID followup in 2 weeks. Will follow
[2025-03-17 15:01] VITALS: BP 124/55; PULSE 88; RESP 18; TEMP 36.7; O2SAT 98
[2025-03-17] MEDS: Glucerna Shake 120 ML LIQUID PO (16:36)
--- NOTE | 2025-03-17 16:59 | PN.SURG_ITS ---
Subjective Subjective Patient is a 59-year-old diabetic female seen at bedside today for evaluation of status post incision and drainage, deep hardware removal secondary to infection with delayed primary closure of full-thickness wound to lateral right ankle. POD #3. DOS: 03/14/2025. Patient is doing well after surgery. Denies any acute events overnight. No pain to right lower extremity. She denies trauma. Denies constitutional symptoms. No other pedal complaints at this time. Objective Data Objective Data Vital Signs: Vital Signs Temp Pulse Resp BP Pulse Ox O2 Del Method O2 Flow Rate 98.0 F 88 18 124/55 H 98 Nasal Cannula 2 03/17/25 15:01 03/17/25 15:01 03/17/25 15:01 03/17/25 15:01 03/17/25 15:01 03/17/25 15:25 03/17/25 15:25 FiO2 30 03/14/25 13:51 Oxygen Flow Rate (L/min) 2 Oxygen Delivery Method Nasal Cannula Weight: 95.9 kg Body Mass Index (BMI) 36.3 Intake & Output: Intake and Output for Last 24 Hours 03/15/25 03/16/25 03/17/25 23:59 23:59 23:59 Intake Total 690 / 690 1500.00 / 1500.00 985 / 985 Output Total 900 / 900 Balance 690 / 690 1500.00 / 1200.00 85 / 85 Lab / Micro Data 03/14/25 05:30 03/16/25 07:30 Labs: Laboratory Results - last 24 hr 03/16/25 17:05: Vancomycin Trough 13.7 03/16/25 21:17: POC Glucose 162 H 03/17/25 06:14: POC Glucose 171 H 03/17/25 11:55: POC Glucose 224 H 03/17/25 16:19: POC Glucose 139 H Micro: Microbiology 03/14/25 12:00 Bone - Ankle Gram Stain - Final 03/14/25 12:00 Bone - Ankle Wound Culture - Final Staphylococcus aureus 03/14/25 12:00 Bone - Ankle Anaerobic Culture - Final No anaerobic bacteria isolated. 03/14/25 12:00 Tissue - Ankle Gram Stain - Final 03/14/25 12:00 Tissue - Ankle Wound Culture - Final Staphylococcus aureus 03/14/25 12:00 Tissue - Ankle Anaerobic Culture - Preliminary No growth in 48 hours. 03/16/25 14:43 Mucosa - Nasopharyngeal Coronavirus COVID-19 PCR - Final 03/16/25 14:43 Mucosa - Nasopharyngeal Respiratory Panel (PCR) - Final 03/13/25 15:25 Wound - Ankle Gram Stain - Final 03/13/25 15:25 Wound - Ankle Wound Culture - Final Staphylococcus aureus 03/13/25 15:25 Wound - Ankle Anaerobic Culture - Preliminary Checking for anaerobes, further studies to follow. Radiography Diagnostic Testing: Radiology Impression Chest CTA 03/16/25 14:43 IMPRESSION: No acute pulmonary emboli. Scattered reticular and nodular densities likely reflective of extensive pulmonary edema although atypical pneumonia is not excluded. There is mild bibasilar pleural effusions with subjacent densities likely compressive atelectasis. Reading Location: [facility] Rhythm Strip Rhythm Strip: Sinus Rhythm Rate: 98 Ectopy: None Physical Exam Narrative Neurovascular status is unchanged. Nonpitting edema appreciated right lower extremity. Improved erythema to the right lower extremity. Incision well coapted with suture. No surgical dehiscence or sign of infection. No pain with calf compression to right lower extremity. Assessment & Plan Assessment/Plan (1) Infection and inflammatory reaction due to internal fixation device of right fibula, initial encounter: PLAN: Patient was examined and evaluated. All findings were discussed with the patient. All questions were answered to the patient's satisfaction. Patient is status post incision and drainage, removal of deep hardware secondary to infection with delayed primary closure of the full-thickness wound to the lateral ankle. POD #3. DOS: 03/14/2025. Patient is doing well. No pain to the right lower extremity. The right ankle incision was dressed with Betadine soaked Adaptic dry sterile dressing and a single layer Paulino compression bandage was donned by wound care nurse. Surgical culture (bone): Staphylococcus aureus Surgical culture (post lavage): Staphylococcus aureus WBC: 9.8 Glucose: 139 Medicine: On board, medical management Infectious disease: On board, IV antibiotics cefazolin. Patient will be discharged with 6 weeks of p.o. doxycycline 100 mg twice daily.. Following up with ID in 2 weeks. Patient is cleared to discharge home from a podiatry perspective once cleared by medicine and infectious disease team. Patient will follow-up in private office for evaluation 1 week postdischarge. Please reach out to Dr. Larsen for any question or concerns. Thank you for letting me be involved in the patient care. (2) Cellulitis of right lower limb: (3) Diabetic foot infection:
--- NOTE | 2025-03-17 18:53 | PN.HOSP_ITS ---
Reason for Visit Chief Complaint: right ankle swelling. 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 It appears that infectious diseases feels the patient can go home on oral antibiotics. Objective Data Objective Data Vital Signs: Vital Signs Temp Pulse Resp BP Pulse Ox O2 Del Method O2 Flow Rate 98.0 F 88 18 124/55 H 98 Nasal Cannula 2 03/17/25 15:01 03/17/25 15:01 03/17/25 15:01 03/17/25 15:01 03/17/25 15:01 03/17/25 15:25 03/17/25 15:25 FiO2 30 03/14/25 13:51 Oxygen Flow Rate (L/min) 2 Oxygen Delivery Method Nasal Cannula Weight: 95.9 kg Body Mass Index (BMI) 36.3 Intake & Output: Intake and Output for Last 24 Hours 03/15/25 03/16/25 03/17/25 23:59 23:59 23:59 Intake Total 690 / 690 1500.00 / 1500.00 1635 / 1635 Output Total 900 / 900 Balance 690 / 690 1500.00 / 1200.00 735 / 735 Lab / Micro Data 03/14/25 05:30 03/16/25 07:30 Labs: Laboratory Results - last 24 hr 03/16/25 21:17: POC Glucose 162 H 03/17/25 06:14: POC Glucose 171 H 03/17/25 11:55: POC Glucose 224 H 03/17/25 16:19: POC Glucose 139 H Micro: Microbiology 03/14/25 12:00 Bone - Ankle Gram Stain - Final 03/14/25 12:00 Bone - Ankle Wound Culture - Final Staphylococcus aureus 03/14/25 12:00 Bone - Ankle Anaerobic Culture - Final No anaerobic bacteria isolated. 03/14/25 12:00 Tissue - Ankle Gram Stain - Final 03/14/25 12:00 Tissue - Ankle Wound Culture - Final Staphylococcus aureus 03/14/25 12:00 Tissue - Ankle Anaerobic Culture - Preliminary No growth in 48 hours. 03/16/25 14:43 Mucosa - Nasopharyngeal Coronavirus COVID-19 PCR - Final 03/16/25 14:43 Mucosa - Nasopharyngeal Respiratory Panel (PCR) - Final 03/13/25 15:25 Wound - Ankle Gram Stain - Final 03/13/25 15:25 Wound - Ankle Wound Culture - Final Staphylococcus aureus 03/13/25 15:25 Wound - Ankle Anaerobic Culture - Preliminary Checking for anaerobes, further studies to follow. Rhythm Strip Rhythm Strip: Sinus Rhythm Rate: 98 Ectopy: None Physical Exam Const alert, oriented x3, no apparent distress and healthy appearing General Appearance: cooperative, well kempt and well developed Orientation / Consciousness: awake, oriented to person, oriented to place and oriented to time HEENT normocephalic, head/scalp atraumatic and moist oral mucous membranes Eyes PERRL, EOMs intact bilaterally and conjunctivae normal Neck supple, no JVD, thyroid normal and no carotid bruits General: trachea midline Resp normal respiratory effort and clear to auscultation bilaterally Auscultation: Negative for rales, rhonchi or wheezes Cardio regular rate, regular rhythm, no murmurs, no rub and no gallops GI normal to inspection, nondistended, normoactive bowel sounds, soft to palpation, non-tender and non-distended Skin no rashes or lesions noted General Skin Exam: no breakdown Neuro oriented x3, CN's II-XII intact bilaterally, moves all extremities, no focal motor deficits and no sensory deficits noted Sensorium / Orientation: awake and alert Speech: speech normal Psych affect normal Assessment & Plan Assessment/Plan (1) Diabetic foot infection: PLAN: Plan 1. Diabetic right foot infection with MSSA-status post incision and drainage of the right lower extremity and removal of infected deep orthopedic hardware right lower extremity-patient is currently on antibiotics per infectious diseases, it is recommended the patient go home on oral antibiotics rather than IV antibiotics. #2 type 1 diabetes-patient is currently on an insulin pump, blood glucose is being monitored #3 hypothyroidism-patient is on Synthroid #4 chronic depression/anxiety-patient is on Cymbalta #5 hyperlipidemia-patient is on a statin #6 essential hypertension-patient will remain on her current blood pressure medication, medicine will be adjusted as necessary Total clinical time spent by myself addressing the patient's medical issues, reviewing all of her data, and collaborating with patient's care team: 35-minute Charges/Coding Visit Charges Inpatient E&M: 91737 Subs Hosp L2
[2025-03-17 21:00] VITALS: BP 117/49; PULSE 87; RESP 16; TEMP 36.7; O2SAT 97
[2025-03-18 03:00] VITALS: BP 115/51; PULSE 84; RESP 16; TEMP 36.6; O2SAT 97
[2025-03-18] MEDS: Cefazolin 2 GM in 0.9% Normal Saline (100mL Bag) 100 ML IV ×3 (05:32→21:23)
[2025-03-18 09:18] VITALS: BP 112/50; PULSE 88; RESP 17; TEMP 36.6; O2SAT 96
[2025-03-18 09:39] VITALS: O2SAT 90
--- NOTE | 2025-03-18 10:12 | RAD_ITS ---
PROCEDURE: CHEST 1 VIEW (PORTABLE) 03/18/2025 REASON FOR EXAM: HYPOXIA TECHNIQUE: Frontal view of the chest. COMPARISON: 03/16/2025 chest x-ray FINDINGS: Hardware: None Heart: Cardiac and mediastinal contours are stable. Lungs: Bilateral lung base airspace disease, slightly improved on compared to prior study. Bilateral small pleural effusion, worse on the left also slightly improved from prior study. Bones: Degenerative changes are identified within the thoracic spine. RAD/Chest 1 View (Portable) IMPRESSION: Bilateral lung base airspace disease, slightly improved on compared to prior st udy. Bilateral small pleural effusion, worse on the left also slightly improved from prior study. Reading Location: [facility]
--- NOTE | 2025-03-18 10:13 | ECHOCS_ITS ---
Reason For Study Reason For Study: Dyspnea/SOB Procedure This was a 2D Doppler, Color Flow transthoracic echocardiogram. The patient is in sinus rhythm. The study was technically difficult. Contrast injection was performed. Exam performed portable in patient room. Left Ventricle Normal-sized left ventricle. Normal left ventricular wall thickness. Left ventricular EF by Segura's biplane: 68%. Normal diastolic function. No regional wall motion abnormalities noted. Right Ventricle Normal right ventricle. Normal systolic function. Unable to estimate RV systolic pressure due to insufficient tricuspid regurgitant envelope. Atria The left and right atria are normal. Right atrial pressure estimated at: 8 mmHg. Normal atrial septum. Mitral Valve Normal mitral valve. Trace mitral regurgitation. No mitral stenosis. Tricuspid Valve Normal tricuspid valve. No tricuspid stenosis. Trace tricuspid regurgitation. Aortic Valve Poorly visualized, but is likely tricuspid aortic valve. No hemodynamically significant aortic stenosis. No aortic regurgitation. Pulmonic Valve Normal pulmonic valve. No pulmonic regurgitation. No pulmonic stenosis. Great Vessels Normal sized aortic root. Pericardium/Pleural No pericardial effusion. Epicardial fat. Medication Diluted definity 2ml given slow IV push to enhance endocardial definition. MMode/2D Measurements & Calculations LVIDd: 4.8 cm IVSd: 0.71 cm Ao root diam: 2.4 cm LVIDs: 3.2 cm LVPWd: 0.83 cm FS: 33.4 % LAV(MOD-bp): 34.5 ml LVAd ap4: 26.3 cm2 SV(MOD-sp4): 50.2 ml LAV(MOD-bp) Indexed: 17.4 ml/m2 LVLd ap4: 7.8 cm SI(MOD-sp4): 25.4 ml/m2 LAV(MOD-sp2): 40.5 ml EDV(MOD-sp4): 74.1 ml LAV(MOD-sp4): 29.0 ml EDV(sp4-el): 74.7 ml LVAs ap4: 13.1 cm2 LVLs ap4: 6.2 cm ESV(MOD-sp4): 23.9 ml ESV(sp4-el): 23.7 ml EF(MOD-sp4): 67.8 % EF(sp4-el): 68.3 % SV(sp4-el): 51.0 ml LA A4 area: 13.4 cm2 LA dimension(2D): 2.9 cm RA A4 area: 11.8 cm2 TAPSE: 1.9 cm Time Measurements MV dec time: 0.23 sec Doppler Measurements & Calculations MV E max arvind: 113.9 cm/sec Lat Peak E' Arvind: 9.0 cm/sec Med Peak E' Arvind: 12.3 cm/sec MV A max arvind: 118.2 cm/sec E/E' lat: 12.7 E/E' med: 9.3 MV E/A: 0.96 MV V2 max: 128.6 cm/sec MV P1/2t max arvind: 122.9 cm/sec Ao V2 max: 177.8 cm/sec MV max P.6 mmHg MV P1/2t: 71.1 msec Ao max P.7 mmHg MV V2 mean: 76.4 cm/sec MV dec slope: 506.6 cm/sec2 Ao V2 mean: 119.8 cm/sec MV mean P.8 mmHg MVA(P1/2t): 3.1 cm2 Ao mean P.7 mmHg MV V2 VTI: 33.1 cm Ao V2 VTI: 35.8 cm AV (velocity ratio): 0.81 LV V1 max: 123.6 cm/sec PA V2 max: 92.9 cm/sec LV V1 max P.1 mmHg LV V1 mean P.9 mmHg LV V1 mean: 93.5 cm/sec LV V1 VTI: 29.1 cm ECHO/Echo Complete W/ Contrast Interpretation Summary Normal left ventricular systolic function with EF by Segura's biplane: 68% Normal left ventricular diastolic function Normal right ventricular systolic function No hemodynamically significant valvular disease Ordering Physician: Pito Blakely Performed By: Elmer Sahu RCS
[2025-03-18 11:15] LABS: Pro- Brain NATRIURETIC PEPTIDE 198 pg/mL (<=900)
[2025-03-18 14:38] VITALS: BP 118/54; PULSE 94; RESP 16; TEMP 36.8; O2SAT 95
[2025-03-18] MEDS: 0.9% Saline Lock 10 ML Syringe IV ×2 (14:41→16:38)
[2025-03-18 15:05] VITALS: O2SAT 93
[2025-03-18] MEDS: Potassium Chloride Oral Tablet 20 MEQ PO (16:38)
[2025-03-18] MEDS: Furosemide 20 MG/2 ML VIAL IV ×2 (16:39→21:26)
--- NOTE | 2025-03-18 19:04 | PN.HOSP_ITS ---
Reason for Visit Chief Complaint: right ankle swelling. Subjective Subjective Patient was seen and examined today, it appeared that the patient had a CTA of the chest on 03/16/2025 that showed evidence of possible pulmonary edema. I discussed this with the patient because she is still requiring oxygen, echocardiogram was ordered and beta natruretic peptide was ordered. Beta nitric peptide was not elevated, echocardiogram showed normal LV function and no significant valvular heart disease. Patient's chest x-ray was repeated today and it showed improving infiltrates at the lung bases and improved effusions. I think it is probable the patient has fluid overload, I placed the patient on IV Lasix and will get a BMP in the morning. Objective Data Objective Data Vital Signs: Vital Signs Temp Pulse Resp BP Pulse Ox O2 Del Method O2 Flow Rate 98.2 F 94 16 118/54 L 93 Room Air 2 03/18/25 14:38 03/18/25 14:38 03/18/25 14:38 03/18/25 14:38 03/18/25 15:05 03/18/25 14:38 03/18/25 09:18 FiO2 30 03/14/25 13:51 Oxygen Flow Rate (L/min) 2 Oxygen Delivery Method Room Air Weight: 95.9 kg Body Mass Index (BMI) 36.3 Intake & Output: Intake and Output for Last 24 Hours 03/16/25 03/17/25 03/18/25 23:59 23:59 23:59 Intake Total 1500.00 / 1500.00 1635 / 1635 330 / 330 Output Total 900 / 900 Balance 1500.00 / 1200.00 735 / 735 330 / 330 Lab / Micro Data 03/14/25 05:30 03/16/25 07:30 Labs: Laboratory Results - last 24 hr 03/17/25 22:10: POC Glucose 135 H 03/18/25 06:56: POC Glucose 143 H 03/18/25 10:36: NT pro BNP II 198 03/18/25 11:27: POC Glucose 149 H 03/18/25 16:00: POC Glucose 172 H Micro: Microbiology 03/13/25 15:25 Wound - Ankle Gram Stain - Final 03/13/25 15:25 Wound - Ankle Wound Culture - Final Staphylococcus aureus 03/13/25 15:25 Wound - Ankle Anaerobic Culture - Final No anaerobic bacteria isolated. 03/14/25 12:00 Bone - Ankle Gram Stain - Final 03/14/25 12:00 Bone - Ankle Wound Culture - Final Staphylococcus aureus 03/14/25 12:00 Bone - Ankle Anaerobic Culture - Final No anaerobic bacteria isolated. 03/14/25 12:00 Tissue - Ankle Gram Stain - Final 03/14/25 12:00 Tissue - Ankle Wound Culture - Final Staphylococcus aureus 03/14/25 12:00 Tissue - Ankle Anaerobic Culture - Preliminary No growth in 48 hours. 03/16/25 14:43 Mucosa - Nasopharyngeal Coronavirus COVID-19 PCR - Final 03/16/25 14:43 Mucosa - Nasopharyngeal Respiratory Panel (PCR) - Final Radiography Diagnostic Testing: Radiology Impression Chest X-Ray 03/18/25 10:12 IMPRESSION: Bilateral lung base airspace disease, slightly improved on compared to prior study. Bilateral small pleural effusion, worse on the left also slightly improved from prior study. Reading Location: [facility] Echocardiogram 03/18/25 10:13 Interpretation Summary Normal left ventricular systolic function with EF by Segura's biplane: 68% Normal left ventricular diastolic function Normal right ventricular systolic function No hemodynamically significant valvular disease Ordering Physician: Pito Blakely Performed By: Elmer Sahu RCS Rhythm Strip Rhythm Strip: Sinus Rhythm Rate: 98 Ectopy: None Physical Exam Narrative alert, oriented x3, no apparent distress and healthy appearing General Appearance: cooperative, well kempt and well developed Orientation / Consciousness: awake, oriented to person, oriented to place and oriented to time HEENT normocephalic, head/scalp atraumatic and moist oral mucous membranes Eyes PERRL, EOMs intact bilaterally and conjunctivae normal Neck supple, no JVD, thyroid normal and no carotid bruits General: trachea midline Resp normal respiratory effort and clear to auscultation bilaterally Auscultation: Negative for rales, rhonchi or wheezes Cardio regular rate, regular rhythm, no murmurs, no rub and no gallops GI normal to inspection, nondistended, normoactive bowel sounds, soft to palpation, non-tender and non-distended Skin no rashes or lesions noted General Skin Exam: no breakdown Neuro oriented x3, CN's II-XII intact bilaterally, moves all extremities, no focal motor deficits and no sensory deficits noted Sensorium / Orientation: awake and alert Speech: speech normal Psych affect normal Assessment & Plan Assessment/Plan (1) History of diabetes mellitus: (2) Diabetic foot infection: PLAN: Plan 1. Diabetic right foot infection with MSSA-status post incision and drainage of the right lower extremity and removal of infected deep orthopedic hardware right lower extremity-patient is currently on antibiotics per infectious diseases, it is recommended the patient go home on oral antibiotics rather than IV antibiotics. #2 type 1 diabetes-patient is currently on an insulin pump, blood glucose is being monitored #3 hypothyroidism-patient is on Synthroid #4 chronic depression/anxiety-patient is on Cymbalta #5 hyperlipidemia-patient is on a statin #6 essential hypertension-patient will remain on her current blood pressure medication, medicine will be adjusted as necessary #7 fluid overload with hypoxia-patient was placed on Lasix 20 mg every 8 hours, she will be reevaluated tomorrow, BMP was ordered for the a.m. Total clinical time spent by myself addressing the patient's medical issues, reviewing all of her data, and collaborating with patient's care team: 35-minute Charges/Coding Visit Charges Inpatient E&M: 62267 Subs Hosp L2
[2025-03-18 20:41] VITALS: BP 141/57; PULSE 92; RESP 16; TEMP 37.1; O2SAT 94
[2025-03-18] MEDS: INSULIN PUMP (SELF-ADMIN/POM) 1 EACH NOTE (21:25)
[2025-03-19 02:40] VITALS: BP 124/56; PULSE 87; RESP 16; TEMP 37.2; O2SAT 95
[2025-03-19] MEDS: Furosemide 20 MG/2 ML VIAL IV (06:53)
[2025-03-19] MEDS: Cefazolin 2 GM in 0.9% Normal Saline (100mL Bag) 100 ML IV ×2 (06:54→14:38)
[2025-03-19 07:17] LABS: Anion Gap 11 (5-15); BUN 14 mg/dL (4-19); BUN/Creat Ratio 22.1 RATIO (10-20); Calcium,Total 8.7 mg/dL (7.6-11.0); Carbon Dioxide 27.0 mmol/L (21.0-32.0); Chloride 102 mmol/L (98-108); Estimated Creatinine Clearance 108.98 ml/min (50-250); Glucose 160 mg/dL (70-99); Potassium 3.6 mmol/L (3.3-5.1)
[2025-03-19] MEDS: Potassium Chloride Oral Tablet 20 MEQ PO ×2 (08:28→16:44)
[2025-03-19 08:40] VITALS: BP 116/44; PULSE 88; RESP 18; TEMP 36.2; O2SAT 92; O2SAT 94; O2SAT 95
--- NOTE | 2025-03-19 14:35 | CASEMGMT ---
DEVON CM into pt room, pt sitting up in bed in no distress. Pt to go to 's office for dressing changes. Pt reports she has a walker at home. She denies any need for therapy upon dc. Noted no PT/OT recommended. Pt to dc on po atb. Pt denies any homegoing needs. She does request information on rx assistance as she states her last paycheck will be this Monday until April. She is aware that this RN CM will notify SW and ask her to speak with pt. Updated SW.
[2025-03-19 15:00] VITALS: BP 120/82; PULSE 90; RESP 16; TEMP 36.8; O2SAT 94
--- NOTE | 2025-03-19 16:23 | CASEMGMT ---
Social Work SW received referral from RNCM that pt is expressing financial concerns. SW met with pt and introduced self and role of SW. Pt states that she will not be able to work for the remainder of the year and is concerned with finances. SW provided pt with information on prescription assistance programs, [employer], [employer], [employer], and [employer]. Pt appreciate of information and denies any other concerns. RAUL Munoz
--- NOTE | 2025-03-19 17:11 | DCINST_ITS ---
Discharge Instructions DC O2, CPAP, BIPAP needs Home O2 Discharge instructions: No Dressing / Incision Discharge Activity: Return to Normal Activity Weight Bearing Status: No weight bearing (Right foot) Follow Up Care Test Results: Test results from this visit will be discussed in further detail at your follow- up appointment, if applicable. Discharge Plan Admission Admit Date/Time: 03/13/25 15:39 Primary Reason for Your Visit: Right foot cellulitis related to type 1 diabetes Attending Provider: Pito Blakely Primary Care Provider: Arjun Steele Consulting Providers: Marco A Dallas; Esvin Montemayor; Nilesh Diaz; Chicho Banda Instructions Additional Instructions / Restrictions: Dressing changes, right lower extremity for home health care: 1. Remove all outer dressing to the right lower extremity. 2. Apply Betadine soaked Adaptic to the incision, lateral right ankle. 3. Cover Adaptic with 4 x 4's, and Kerlix wrap 4. Apply under casting from sulcus of toe to mid calf, 2 layers, right lower extremity 5. Apply to x2 4 inch Chilo bandages from sulcus to toes to mid calf, right lower extremity 6. Change 2 times per week Discharge Orders/Prescriptions Prescriptions: New buspirone 5 mg Tablet 5 mg PO TID Qty: 90 0RF doxycycline monohydrate 100 mg tablet 100 mg PO BID Qty: 84 0RF Rx Instructions: Start on 03/20/2025 Continued trazodone 50 mg tablet 25 mg PO QHS PRN (Reason: insomnia) Qty: 90 1RF ondansetron 4 mg tablet,disintegrating 4 mg PO Q8H PRN (Reason: nausea and vomiting) Qty: 60 1RF levothyroxine 125 mcg tablet 125 mcg PO DAILY Qty: 90 3RF (DME) insulin pump syringe 1 EACH misc 1 ea MC CONT acetaminophen 325 mg Tablet 650 mg PO Q4H PRN PRN (Reason: Pain 1-10/Fever) Qty: 0 0RF simvastatin 20 mg tablet 40 mg PO QHS Rx Instructions: TAKE 1 TABLET BY MOUTH AT BEDTIME hydroxyzine HCl 25 mg tablet 25 mg PO PRN PRN (Reason: anxiety) Rx Instructions: TAKE 1 TABLET BY MOUTH TWICE A DAY FOR NEEDED FOR ITCHING ascorbic acid (vitamin C) [Vitamin C] 1,000 mg tablet 1 g PO DAILY 90 Days Qty: 90 0RF aspirin 81 mg tablet,delayed release (DR/EC) 81 mg PO DAILY 30 Days Qty: 30 0RF calcium carbonate-vitamin D3 [Os-Cirilo 500 + D3] 500 mg-15 mcg (600 unit) tablet 1 tab PO DAILY 90 Days Qty: 90 0RF naproxen 500 mg tablet 500 mg PO BID PRN Qty: 20 0RF omeprazole 40 mg capsule,delayed release(DR/EC) 40 mg PO QDAY Qty: 90 1RF insulin lispro [Humalog U-100 Insulin] 100 unit/mL solution 100 unit SC .continuous Qty: 90 1RF Rx Instructions: viaInsulin Pump (DME) Omnipod 5 G6-G7 Pods (Gen 5) Cartridge See Rx Instructions .Route Qty: 15 5RF Rx Instructions: 1 pod every 48-72 hours enalapril maleate 5 mg tablet 5 mg PO DAILY Qty: 90 1RF Rx Instructions: TAKE 1 TABLET BY MOUTH EVERY DAY duloxetine 30 mg capsule,delayed release(DR/EC) 30 mg PO BID Qty: 60 0RF (DME) Dexcom G7 Sensor Device See Rx Instructions .Route Qty: 9 3RF Rx Instructions: As directed Discontinued buspirone 5 mg tablet 5 mg PO BID Referrals / Follow Up: Arjun Steele MD [Primary Care Provider, Internal Medicine] Rodo Larsen DPM [Med Staff - Active Staff, Podiatry] - See Referral Note Referral Note: Follow-up in office 1 week postdischarge. Esvin Montemayor MD [Med Staff - Active Staff, Infectious Disease] - See Referral Note Referral Note: As directed Disposition Disposition (needs filled in before D/C Order can be placed): Home, Self Care
--- NOTE | 2025-03-19 17:21 | DS.PCM_ITS ---
Providers Date of Admission: 03/13/25 Date of Discharge: 03/19/25 Primary Care Physician: Dr. Arjun Steele MD Consultations 03/13/25 16:32 Consult: Infectious Disease Routine Consulting Provider: Esvin Montemayor Reason for Consult: diabetic foot infection EMERGENT Consult: No Notified: Yes Date Notified: 03/13/25 Time Notified: 15:44 Method of Notification: Text Consult: Onc/Wound/podiatric technician Routine Comment: Consult: Podiatry Routine Consulting Provider: Nilesh Diaz Reason for Consult: diabetic foot infection EMERGENT Consult: No Notified: Yes Date Notified: 03/13/25 Time Notified: 15:44 Method of Notification: ED Physician Initiated Reason For Visit: DIABETIC FOOT INFECTION Diagnosis Discharge Diagnosis (1) History of diabetes mellitus: Status: Acute Code(s): Z86.39 - Personal history of other endocrine, nutritional and metabolic disease (2) Diabetic foot infection: Status: Acute Code(s): E11.628 - Type 2 diabetes mellitus with other skin complications; L08.9 - Local infection of the skin and subcutaneous tissue, unspecified Plan 1. Diabetic right foot infection with MSSA-status post incision and drainage of the right lower extremity and removal of infected deep orthopedic hardware right lower extremity-patient is currently on antibiotics per infectious diseases, it is recommended the patient go home on oral antibiotics rather than IV antibiotics. #2 type 1 diabetes-patient is currently on an insulin pump, blood glucose is being monitored #3 hypothyroidism-patient is on Synthroid #4 chronic depression/anxiety-patient is on Cymbalta #5 hyperlipidemia-patient is on a statin #6 essential hypertension-patient will remain on her current blood pressure medication, medicine will be adjusted as necessary #7 fluid overload with hypoxia-patient was placed on Lasix 20 mg every 8 hours, she will be reevaluated tomorrow, BMP was ordered for the a.m. Total clinical time spent by myself addressing the patient's medical issues, reviewing all of her data, and collaborating with patient's care team: 35-minute Medications at Discharge Home Medications insulin pump syringe 1.8 mL 01/23/18 acetaminophen 325 mg tablet 650 mg (2 x 325 mg) PO Q4H PRN PRN Pain 1-10/Fever #0 tabs 09/29/22 trazodone 50 mg tablet 25 mg (1/2 x 50 mg) PO QHS PRN insomnia #90 tabs 03/13/23 hydroxyzine HCl 25 mg tablet 25 mg PO PRN PRN anxiety 04/18/23 simvastatin 20 mg tablet 40 mg PO QHS cholesterol 04/18/23 ondansetron 4 mg disintegrating tablet 4 mg PO Q8H PRN nausea and vomiting #60 tabs 06/14/23 ascorbic acid (vitamin C) 1,000 mg tablet (Vitamin C) 1 g PO DAILY 90 days #90 tabs 06/21/23 aspirin 81 mg tablet,delayed release 81 mg PO DAILY 30 days #30 tabs 06/21/23 calcium 500 mg (as carbonate)-vitamin D3 15 mcg (600 unit) tablet (Os-Cirilo 500 + D3) 1 tab PO DAILY 90 days #90 tabs 06/21/23 levothyroxine 125 mcg tablet 125 mcg PO DAILY #90 tabs 07/25/24 naproxen 500 mg tablet 500 mg PO BID PRN #20 tabs 08/05/24 omeprazole 40 mg capsule,delayed release 40 mg PO QDAY #90 caps 09/16/24 insulin lispro 100 unit/mL subcutaneous solution (Humalog U-100 Insulin) 100 unit subcut .continuous blood glucose #90 mL 12/03/24 insulin pump cart,auto,BT,G6/7 (Omnipod 5 G6-G7 Pods (Gen 5) subcutaneous cartridge) #15 ea 12/11/24 enalapril maleate 5 mg tablet 5 mg PO DAILY #90 tabs 12/16/24 blood-glucose sensor (Dexcom G7 Sensor device) #9 ea 02/24/25 doxycycline monohydrate 100 mg tablet 100 mg PO BID #84 tabs 03/19/25 buspirone 5 mg tablet 5 mg PO TID #90 tabs 03/21/25 duloxetine 30 mg capsule,delayed release 30 mg PO BID #90 caps 03/21/25 Hospital Course Operations - (Incision and drainage of infected right foot with removal of infected deep orthopedic hardware right lower extremity and primary closure-03/14/2025) Procedures 2-D Echocardiogram Summary of Care Provided Minutes Spent on Discharge: 31 Hospital Course: This 39-year-old white female was seen in the emergency room at [facility] with complaints of right lateral ankle swelling and a wound on her lateral malleolus. She had previously lost toes on the left foot due to diabetic foot infections. Labs obtained in the emergency room showed a white blood cell count of 11.2, hemoglobin was 10.1, chemistry profile was unremarkable. C-reactive protein was elevated at 92, ankle x-ray showed prior ORIF of the distal tibia and fibula with diffuse soft tissue swelling more prominent on the lateral aspect. Patient was admitted to [place] [address], she had been seen in the ER by podiatry prior to admission and they probe to the bone and actually able to probe the hardware in her right ankle. She was placed on IV antibiotics and seen in consultation by podiatry and infectious diseases. She was taken to surgery and had removal of the hardware in her right foot with closure of the wound and debridement of the wound. Patient did well postop, it was ascertained that she could go home on oral antibiotics. Patient was seen by PT and OT. On 03/19/2025, patient was seen and examined:alert, oriented x3, no apparent distress and healthy appearing General Appearance: cooperative, well kempt and well developed Orientation / Consciousness: awake, oriented to person, oriented to place and oriented to time HEENT normocephalic, head/scalp atraumatic and moist oral mucous membranes Eyes PERRL, EOMs intact bilaterally and conjunctivae normal Neck supple, no JVD, thyroid normal and no carotid bruits General: trachea midline Resp normal respiratory effort and clear to auscultation bilaterally Auscultation: Negative for rales, rhonchi or wheezes Cardio regular rate, regular rhythm, no murmurs, no rub and no gallops GI normal to inspection, nondistended, normoactive bowel sounds, soft to palpation, non-tender and non-distended Skin no rashes or lesions noted General Skin Exam: no breakdown Neuro oriented x3, CN's II-XII intact bilaterally, moves all extremities, no focal motor deficits and no sensory deficits noted Sensorium / Orientation: awake and alert Speech: speech normal Psych affect normal Patient was discharged home in stable condition on 03/19/2025 Weight / BMI Weight Weight: 95.9 kg Body Mass Index (BMI) 36.3 ABG / Lab / Microbiology Data 03/14/25 05:30 03/19/25 06:28 Laboratory: Laboratory Results - last 24 hr 03/18/25 21:22: POC Glucose 161 H 03/19/25 06:28: Sodium 140, Potassium 3.6, Chloride 102, Carbon Dioxide 27.0, Anion Gap 11, BUN 14, Creatinine 0.64 L, Estim Creat Clear Calc 108.98, Est GFR (MDRD) Non-Af 103, BUN/Creatinine Ratio 22.1 H, Glucose 160 H, Calcium 8.7 03/19/25 06:51: POC Glucose 163 H 03/19/25 11:05: POC Glucose 200 H 03/19/25 16:41: POC Glucose 249 H Microbiology: Microbiology 03/14/25 12:00 Tissue - Ankle Gram Stain - Final 03/14/25 12:00 Tissue - Ankle Wound Culture - Final Staphylococcus aureus 03/14/25 12:00 Tissue - Ankle Anaerobic Culture - Final No anaerobic bacteria isolated. 03/13/25 15:25 Wound - Ankle Gram Stain - Final 03/13/25 15:25 Wound - Ankle Wound Culture - Final Staphylococcus aureus 03/13/25 15:25 Wound - Ankle Anaerobic Culture - Final No anaerobic bacteria isolated. 03/14/25 12:00 Bone - Ankle Gram Stain - Final 03/14/25 12:00 Bone - Ankle Wound Culture - Final Staphylococcus aureus 03/14/25 12:00 Bone - Ankle Anaerobic Culture - Final No anaerobic bacteria isolated. 03/16/25 14:43 Mucosa - Nasopharyngeal Coronavirus COVID-19 PCR - Final 03/16/25 14:43 Mucosa - Nasopharyngeal Respiratory Panel (PCR) - Final D/C Instructions Weight Bearing Status: No weight bearing (Right foot) DC O2, CPAP, BIPAP Needs Home O2 Discharge instructions: No Meaningful Use Info Meaningful Use Meaningful Use Diagnoses (Choose all that apply): None applicable Discharge Plan Admission Admit Date/Time: 03/13/25 15:39 Primary Reason for Your Visit: Right foot cellulitis related to type 1 diabetes Attending Provider: Pito Blakely Primary Care Provider: Arjun Steele Consulting Providers: Marco A [place]; Esvin Montemayor; Nilesh Diaz; Chicho Banda Instructions Additional Instructions / Restrictions: Dressing changes, right lower extremity for home health care: 1. Remove all outer dressing to the right lower extremity. 2. Apply Betadine soaked Adaptic to the incision, lateral right ankle. 3. Cover Adaptic with 4 x 4's, and Kerlix wrap 4. Apply under casting from sulcus of toe to mid calf, 2 layers, right lower extremity 5. Apply to x2 4 inch Chilo bandages from sulcus to toes to mid calf, right lower extremity 6. Change 2 times per week Discharge Orders/Prescriptions Prescriptions: New doxycycline monohydrate 100 mg tablet 100 mg PO BID Qty: 84 0RF Rx Instructions: Start on 03/20/2025 Continued trazodone 50 mg tablet 25 mg PO QHS PRN (Reason: insomnia) Qty: 90 1RF ondansetron 4 mg tablet,disintegrating 4 mg PO Q8H PRN (Reason: nausea and vomiting) Qty: 60 1RF levothyroxine 125 mcg tablet 125 mcg PO DAILY Qty: 90 3RF (DME) insulin pump syringe 1 EACH misc 1 ea MC CONT acetaminophen 325 mg Tablet 650 mg PO Q4H PRN PRN (Reason: Pain 1-10/Fever) Qty: 0 0RF simvastatin 20 mg tablet 40 mg PO QHS Rx Instructions: TAKE 1 TABLET BY MOUTH AT BEDTIME hydroxyzine HCl 25 mg tablet 25 mg PO PRN PRN (Reason: anxiety) Rx Instructions: TAKE 1 TABLET BY MOUTH TWICE A DAY FOR NEEDED FOR ITCHING ascorbic acid (vitamin C) [Vitamin C] 1,000 mg tablet 1 g PO DAILY 90 Days Qty: 90 0RF aspirin 81 mg tablet,delayed release (DR/EC) 81 mg PO DAILY 30 Days Qty: 30 0RF calcium carbonate-vitamin D3 [Os-Cirilo 500 + D3] 500 mg-15 mcg (600 unit) tablet 1 tab PO DAILY 90 Days Qty: 90 0RF naproxen 500 mg tablet 500 mg PO BID PRN Qty: 20 0RF omeprazole 40 mg capsule,delayed release(DR/EC) 40 mg PO QDAY Qty: 90 1RF insulin lispro [Humalog U-100 Insulin] 100 unit/mL solution 100 unit SC .continuous Qty: 90 1RF Rx Instructions: viaInsulin Pump (DME) Omnipod 5 G6-G7 Pods (Gen 5) Cartridge See Rx Instructions .Route Qty: 15 5RF Rx Instructions: 1 pod every 48-72 hours enalapril maleate 5 mg tablet 5 mg PO DAILY Qty: 90 1RF Rx Instructions: TAKE 1 TABLET BY MOUTH EVERY DAY (DME) Dexcom G7 Sensor Device See Rx Instructions .Route Qty: 9 3RF Rx Instructions: As directed Discontinued buspirone 5 mg tablet 5 mg PO BID No Action buspirone 5 mg tablet 5 mg PO TID Qty: 90 0RF duloxetine 30 mg capsule,delayed release(DR/EC) 30 mg PO BID Qty: 90 0RF Referrals / Follow Up: Arjun Steele MD [Primary Care Provider, Internal Medicine] Rodo Larsen DPM [Med Staff - Active Staff, Podiatry] - See Referral Note Referral Note: Follow-up in office 1 week postdischarge. Esvin Montemayor MD [Med Staff - Active Staff, Infectious Disease] - See Referral Note Referral Note: As directed Disposition Disposition (needs filled in before D/C Order can be placed): Home, Self Care Charges/Coding Visit Charges Inpatient E&M: 69270 Disch Hosp >30min
== END 2025-03-19 18:09 | disposition home or self-care (01) | DRG 496 ==
LOC: ED 15:33 → MS3 16:01
PROVIDERS: Internal Medicine; Podiatrist Foot & Ankle Surgery; Emergency Provider Emergency Medicine; PCP Internal Medicine; Visit Provider Internal Medicine
PROC: 0QPJ04Z Removal of Internal Fixation Device from Right Fibula, Open Approach (ICD-10-PCS; principal; 2025-03-14 13:05)
DX: T84.624A Infection and inflammatory reaction due to internal fixation device of right fibula, initial encounter (principal); L03.115 Cellulitis of right lower limb; T81.49XA Infection following a procedure, other surgical site, initial encounter; D63.8 Anemia in other chronic diseases classified elsewhere; E10.628 Type 1 diabetes mellitus with other skin complications; I10 Essential (primary) hypertension; E03.9 Hypothyroidism, unspecified; F32.A Depression, unspecified; Z68.36 Body mass index [BMI] 36.0-36.9, adult; Z79.4 Long term (current) use of insulin; E78.5 Hyperlipidemia, unspecified; F41.9 Anxiety disorder, unspecified; E87.70 Fluid overload, unspecified; E66.812 Obesity, class 2; Z79.899 Other long term (current) drug therapy; Z79.82 Long term (current) use of aspirin; X58.XXXA Exposure to other specified factors, initial encounter
CPT/HCPCS: 36415; 71045; 71046; 71275; 73600; 73610; 76000; 80048; 80202; 82962; 83036; 83880; 84443; 85025; 85027; 85379; 85652; 86140; 87015; 87070; 87075; 87077; 87102; 87116; 87176; 87186; 87205; 87206; 87633; 87635; 88300; 93005; 93306; 94002; 94668; 97116; 97162; 97165; 97530; 97535; 99285; Q9957; Q9967; A4216; C8929; J0295; J1938; J2405